=== PATIENT | male | born 1940 | race Caucasian/White ===

== ENCOUNTER 2021-12-11 11:51 | Observation (INO) | payer OTHER ==
[2021-12-11 13:00] VITALS: BMI 29.0
[2021-12-11] MEDS ORDERED: INFLUENZA VACCINE (for 6+ mo) 0.5 ML DOSE IMVAC ONE (13:00)
[2021-12-11] MEDS ORDERED: PNEUMOCOCCAL VACCINE 0.5 ML IMVAC ONE (13:00)
[2021-12-11 13:40] LABS: Absolute Lymphocytes (CBC) 1.2 K/uL (0.7-4.9); Hematocrit 39.4 % (39.6-49.0); Lymphocytes % 10.8 % (15.3-44.8); MPV 8.2 fL (7.6-11.3); RBC Red Blood Cell Count 4.34 M/uL (4.33-5.43)
[2021-12-11] MEDS: HYDROMORPHONE HCL 1 MG/ML INJ IV PRN (14:33)
[2021-12-11] MEDS ORDERED: LOPERAMIDE HCL 2 MG CAPSULE PO PRN (15:00)
[2021-12-11] MEDS ORDERED: DIPHENHYDRAMINE 25 MG TAB/CAP PO PRN (15:00)
[2021-12-11] MEDS ORDERED: ACETAMINOPHEN 325 MG TABLET PO PRN (15:00)
[2021-12-11] MEDS ORDERED: POLYETHYL GLY 3350 17 GM/DOSE PO PRN (15:00)
[2021-12-11] MEDS ORDERED: ONDANSETRON 4 MG (ODT) TAB PO PRN (15:00)
[2021-12-11] MEDS ORDERED: ONDANSETRON 4 MG/2 ML VIAL IV PRN (15:00)
[2021-12-11] MEDS ORDERED: NACHLORIDE 0.45% 1,000 ML IV SCH (15:00)
[2021-12-11] MEDS: CEFOXITIN 1 GM in NA CHLORIDE 0.9% 50 ML IVPB SCH ×2 (15:01→23:06)
[2021-12-11 15:27] LABS: Albumin 3.1 g/dL (3.4-5.0); Bilirubin Direct 0.1 mg/dL (0-0.2); Bilirubin Total 0.5 mg/dL (0.2-1.0); Magnesium 2.2 mg/dL (1.8-2.4); Phosphorus 3.4 mg/dL (2.5-4.9); Potassium 4.7 mmol/L (3.5-5.1); Thyroid Stimulating Hormone 0.78 uIU/mL (0.360-3.740)
--- NOTE | 2021-12-11 16:01 | RAD REPORT ---
EXAM DESCRIPTION: CT - Abdomen Pelvis W Contrast - 12/11/2021 3:26 pm CLINICAL HISTORY: abdominal painwhich the patient localizes to left lower quadrant and groin ; histo ry of colon cancer COMPARISON: No comparisons TECHNIQUE: Biphasic, helical CT imaging of the abdomen and pelvis was performed following 100 ml non -ionic IV contrast. No oral contrast administered. All CT scans are performed using dose optimization technique as appropriate and may include automated exposure control or mA/KV adjustment according to patient size. FINDINGS: No suspicious findings in the lung bases. No pericardial effusion. Liver size is normal with no suspicious liver lesions identified. Scattered throughout both lobes are several small round low-density lesion showing homogeneous fluid attenuation. No rim enhancement. Th srinivasan are all believed to be incidental hepatic cysts. No portal vein abnormality identified. Spleen and pancreas show no suspicious findings. Gallbladder and biliary tree are also without suspic ious finding. Normal cortical and medullary enhancement characteristics are seen in the right kidney. No right-side d hydronephrosis. No right-sided obstructing or nonobstructing calculi. There is a small 10 mm renal cyst in the medial midportion of the right kidney. There is no right-sided perinephric stranding. There is very significant left-sided hydronephrosis and hydroureter. Transverse diameter of the renal pelvises 5 cm. Moderately dilated ureter extends into the pelvis. There is enhancement of a thin cor tical rim of renal tissue. No left-sided perinephric stranding. The dilated ureter is tortuous. The p rob, calices and proximal ureter show normal fluid attenuation urine within the lumen. The distal 1 /3 of the ureter has a more dense attenuation value. Additionally, the left ureter has been reattache d to the left anterior margin of the bladder. There are numerous surgical clips along the course of t he ureter and in the pelvic sidewall region. This history is unknown. The increased density in the ur eter could represent inflammatory debris, blood, mass lesion or some combination of those 3 etiologie s. There is no stone in the distal ureter. No gross evidence for a mass lesion at the site of the shania dder re- attachment. No pyelonephritis or acute parenchymal process. No adrenal abnormalities. No enlargement of the prostate gland. Along the right side floor of the bladder there is a [address] diameter lobulated mass. This appears to be discrete from the prostate gland. A bladder wall mass is suspected and needs correlation with cystoscopy. No bladder wall thickening otherwise noted. No s tone in the bladder lumen. The stomach dilatation, gastric wall thickening or gastric wall mass identifiable. No small bowel abn ormality seen. Gallbladder is been partially resected on the right. Anastomosis shows no wall thicken ing or edema. Moderate stool volume is seen throughout the colon. Sigmoid colon is tortuous and redun dant without acute component. No rectum abnormality seen. No free air, free fluid or inflammatory stranding. No other mass and no bulky lymphadenopathy seen . A small periumbilical hernia seen. Small fat only right inguinal hernia is present with no congesti on or edema. Fat extends 1-2 cm into the origin of the left inguinal canal. There is no congested or edematous fat within the inguinal canal or in the fatty tissues of the left lower pelvic floor or jose in region. There is no abnormal groin mass or lymphadenopathy. Imaging extended through the scrotum w here there is no scrotal wall thickening or edema identifiable. Disc and bone degenerative changes are present. No pathologic bone process seen. Vascular calcifications are present. No acute vascular finding. Findings were discussed by telephone with Dr. Schultz and left lower quadrant findings discussed with Skyla Ji. IMPRESSION: Patient has very pronounced left-sided hydronephrosis and hydroureter. Midportion of the ureters 13 mm with the renal pelvis dilated to 5 cm. No obstructing calculus seen. Significantly thi nned renal cortex is present on the left. This is believed to be chronic hydronephrosis. Postsurgical changes are present in the left lower quadrant with reattachment of the left ureter to t he left anterior urinary bladder wall. There is no stone or mass at the re- anastomosis site. The distal left ureter is high density within the lumen. This is not density of the stone. Blood, inf lammatory debris, mass or a combination of these 3 etiologies suspected. No measurable left inguinal hernia, lymphadenopathy or other abnormality besides the left ureter find ing that might explain left pelvic floor, groin or spermatic cord region pain symptoms. Patient appears to have a small 12 millimeter mass along the right-side of the urinary bladder floor concerning for malignancy. Follow-up urology consultation with cystoscopy will likely be needed.
[2021-12-11 16:25] LABS: Urine Appearance Clear (Clear); Urine Bilirubin Negative (Negative); Urine Blood Negative (Negative); Urine Color Yellow (Yellow); Urine Glucose Negative (Negative); Urine Protein Negative (Negative); Urine Specific Gravity 1.015 (1.005-1.030); Urine Urobilinogen 0.2 mg/dL (0.2-1.0)
[2021-12-11 16:26] LABS: Urine Amorphous Sediment 1+ /HPF (NONE SEEN); Urine Bacteria <20 /HPF (NONE SEEN); Urine Microscopic Reflex ORDER UMIC; Urine RBC <5 /HPF (NONE SEEN)
--- NOTE | 2021-12-11 17:20 | RAD REPORT ---
EXAM DESCRIPTION: RAD - Chest Single View - 12/11/2021 4:13 pm CLINICAL HISTORY: direct admitabdomen pain COMPARISON: None TECHNIQUE: AP portable chest image was obtained 12/11/2021 4:13 pm . FINDINGS: No peripheral mass consolidation. No significant failure or volume overload findings. Inte rstitial pattern is prominent suspected to be baseline rather than interstitial edema or infiltrate. Heart and vasculature are normal. No measurable pleural effusion and no pneumothorax. No acute bony abnormality seen. No acute aortic findings suspected. IMPRESSION: Mildly prominent interstitial pattern throughout both lung milton favored to be baseline rather than acute infiltrate.
--- NOTE | 2021-12-11 20:47 | CON ---
Date of Consultation: 12/11/2021 Reason For Services: Left lower quadrant and groin pain. History Of Present Illness: This is a case of an 81-year-old patient who is saying he has some pain in the suprapubic area and left groin area since about 3 weeks duration. He denies any nausea, vomit ing, shortness of breath, chest pain. Denies any heavy lifting. Denies any trauma in that region. He has midline incision. He has also inguinal incision. His inguinal incision comes from inguinal h ernia repair he says more than 30 years ago. He has been okay until the last several weeks. He has a midline incision also from previous laparotomy. Surgical consult was obtained to rule out left ing uinal hernia. Review of Systems: See H and P. No recall about previous colonoscopy. We have to check with the jacker feeder. Past Surgical History: Include bilateral inguinal hernias, midline incision with possible colon canc er, I do not have the details of that. Past Medical History: Reviewed. Allergies: NONE. Family History: Noncontributory. He does not smoke. He does not drink alcohol. Physical Examination: General: The patient is awake, alert. HEENT: Pupils are equal and reactive. Anicteric. Neck: Supple. Chest: Clear. Abdomen: Soft and depressible. There is a midline incision. There is an umbilical hernia with no t enderness. On the groin area there is left inguinal incision. There is tenderness over the suprapub ic area. No reducible hernia found. No masses in that region. Extremities: Good capillary refill. Laboratory Data: Blood work shows WBC count of 10.8 with hemoglobin of 13. PTT is 29.4. BUN is 28. CAT scan of the abdomen and pelvis, I just reviewed the CAT scan with Dr. Sheldon. There is some p athology that we found in different parts of his urological system that include kidneys, include uret ers, with possible mass versus debris causing significant hydronephrosis in the left side. He did no t see any hernia on the inguinal region. He reviewed the films, but evaluated better once we talked to him and still not seen any hernia in that region. Assessment: Left groin pain, hydronephrosis, possible ureteral obstruction. Unfortunately from the surgical standpoint I cannot help him since he does not have a hernia at this time, but we might have to consult urologist to let us know if there is any relationship between his tenderness and all thes e findings on the CAT scan. We will follow the patient with you. We advised him once again about th e importance of no heavy lifting, not gaining weight since the patient has a midline incision with an umbilical hernia that may have to be addressed once this problem is resolved. ROXANNE Voice ID: [id number] Report ID: [id number]
[2021-12-11] MEDS ORDERED: HYDRALAZINE HCL 25 MG TABLET PO SCH (21:00)
--- NOTE | 2021-12-11 21:27 | P.HP ---
Certification for Inpatient Patient admitted to: Inpatient With expected LOS: >2 Midnights Practitioner: I am a practitioner with admitting privileges, knowledge of patient current condition, hospital course, and medical plan of care. Services: Services provided to patient in accordance with Admission requirements found in Title 42 Section 412.3 of the Code of Federal Regulations Patient History Date of Service: 12/11/21 Reason for admission: ABDOMEN PAIN LLQ AND L SIDE History of Present Illness: MR REBOLLEDO IS A PATIENT WITH PARKINSON'S DISEASE COMING WITH PAIN IN L SIDE GROIN AREA FOR ABOUT A WEEK. IT IS WORSENING OVER TIME. HE HAS NO NAUSEA, VOMITING, CONSTIPATION ETC. Allergies No Known Allergies Allergy (Verified 12/11/21 16:29) Home medications list reviewed: Yes Home Medications: Apixaban [Eliquis] 5 mg PO DAILY 12/11/21 Carbidopa/Levodopa [Carbidopa-Levo ER 50-200 Tab] 1 tab PO BID 12/11/21 Hydralazine HCl 50 mg PO BID 12/11/21 Lisinopril [Zestril] 20 mg PO DAILY 12/11/21 Metoprolol Succinate 50 mg PO DAILY 12/11/21 predniSONE [Deltasone] 20 mg PO DAILY 12/11/21 - Past Medical/Surgical History Has patient received pneumonia vaccine in the past: No Diabetic: No -: HTN -: Parkinsonian syndrome -: AFIB -: Arthritis -: Brain tumor -: Colon Cancer with Chemotherapy -: POLYMYALGIA RHEUMATICA- STEROIDS -: Colon sx -: Hernia repair -: 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 moist/pink, EOMI, Sclerae nonicteric Neck: Supple, 2+ carotid pulse no bruit, No LAD, Without JVD or thyroid abnormality Respiratory: Clear to auscultation bilaterally, Normal air movement Cardiovascular: Regular rate/rhythm, Normal S1 S2 Gastrointestinal: Normal bowel sounds, No tenderness Musculoskeletal: No tenderness Integumentary: No rashes Neurological: Normal gait, Normal speech, Normal strength at 5/5 x4 extr, Normal tone, Normal affect Lymphatics: No axilla or inguinal lymphadenopathy - Studies Laboratory Data (last 24 hrs) 12/11/21 13:14: APTT 29.4 12/11/21 13:14: Sodium 136, Potassium 4.7, BUN 28 H, Creatinine 1.29, Glucose 108 H, Phosphorus 3.4, Magnesium 2.2, Total Bilirubin 0.5, AST 16, ALT 14, Alkaline Phosphatase 24 L 12/11/21 13:14: WBC 10.8, Hgb 13.0 L, Hct 39.4 L, Plt Count 251 Assessment and Plan - Problems (Diagnosis) (1) Groin pain, chronic, left Current Visit: Yes Status: Acute Plan: THERE IS NO CT SIGN OF HERNIA. THERE IS NO PALPABLE HERNIA. HE IS TENDER ON L SPERMATIC CORD WITH MILD SWELLING. NO SIGNS OF INFECTION. (2) Hydronephrosis, left Current Visit: Yes Status: Acute Plan: THIS CAN BE FROM DEBRI IN THE URETER. DR CAMACHO REPORTS EITHER DEBRS OR TUMOR IN THE URETER. HE ALSO MENTIONS A SMALL MASS IN BLADDER THAT NEEDS TO BE SEEN BY UROLOGIST. DR. MENDEZ IS OUT OF TOWN. HE WILL RETURN AFTER 10 DAYS. I WILL ARRANGE FOR HIM TO BE SEEN BY A UROLOGIST IN [facility]. - Advance Directives Does patient have a Living Will: No Does patient have a Durable POA for Healthcare: No
[2021-12-11] MEDS: CARBIDOPA PO SCH (21:41)
[2021-12-11] MEDS: LEVODOPA PO SCH (21:41)
[2021-12-12] MEDS: HYDROMORPHONE HCL 1 MG/ML INJ IV PRN (05:02)
[2021-12-12] MEDS: CEFOXITIN 1 GM in NA CHLORIDE 0.9% 50 ML IVPB SCH (06:29)
[2021-12-12 08:16] VITALS: TEMP 97.7
--- NOTE | 2021-12-12 08:50 | P.DS ---
Admission Date: 12/11/21 Discharge Date: 12/12/21 Disposition: TRANSFER TO [facility] Discharge Condition: [facility]IR Reason for Admission: ABDOMEN PAIN LLQ AND L SIDE - Problems (1) Groin pain, chronic, left Current Visit: Yes Status: Acute (2) Hydronephrosis, left Current Visit: Yes Status: Acute Brief History of Present Illness: MR REBOLLEDO IS A PATIENT WITH PARKINSON'S DISEASE COMING WITH PAIN IN L SIDE GROIN AREA FOR ABOUT A WEEK. IT IS WORSENING OVER TIME. HE HAS NO NAUSEA, VOMITING, CONSTIPATION ETC. Hospital Course: TREVA IS IN SEVERE PAIN WITHOUT DILAUDID. HE HAS L SIDE HYDRONEPHROSIS WITH POSSIBLE MALIGNANCY AT THE END OF URETER. HE NEEDS A UROLOGIST. WE DON'T HAVE A UROLOGIST FOR NEXT 10 DAYS. HE HAS AGREED TO GO TO [facility] IN [place] INPATIENT TRANSFER. WE HAVE INITIATED THE PROCESS AND WILL BE TRANSFERRED WITH BED AVAILABILITY. Vital Signs/Physical Exam: Temp Pulse Resp BP Pulse Ox 97.7 F 84 14 130/81 97 12/12/21 08:00 12/12/21 08:00 12/12/21 08:00 12/12/21 08:00 12/12/21 08:00 Laboratory Data at Discharge: WBC 10.8 K/uL (4.3-10.9) 12/11/21 13:14 Hgb 13.0 g/dL (13.6-17.9) L 12/11/21 13:14 Hct 39.4 % (39.6-49.0) L 12/11/21 13:14 Plt Count 251 K/uL (152-406) 12/11/21 13:14 APTT 29.4 SECONDS (24.3-36.9) 12/11/21 13:14 Sodium 136 mmol/L (136-145) 12/11/21 13:14 Potassium 4.7 mmol/L (3.5-5.1) 12/11/21 13:14 BUN 28 mg/dL (7-18) H 12/11/21 13:14 Creatinine 1.29 mg/dL (0.55-1.3) 12/11/21 13:14 Glucose 108 mg/dL (74-106) H 12/11/21 13:14 Phosphorus 3.4 mg/dL (2.5-4.9) 12/11/21 13:14 Magnesium 2.4 mg/dL (1.8-2.4) 12/12/21 05:21 Total Bilirubin 0.5 mg/dL (0.2-1.0) 12/11/21 13:14 AST 16 U/L (15-37) 12/11/21 13:14 ALT 14 U/L (12-78) 12/11/21 13:14 Alkaline Phosphatase 24 U/L (45-117) L 12/11/21 13:14 Home Medications: Apixaban [Eliquis *] 5 mg PO BID 12/11/21 Carbidopa/Levodopa [Carbidopa-Levo ER 50-200 Tab] 1 tab PO BID 12/11/21 Hydralazine HCl 50 mg PO BID 12/11/21 Lisinopril [Zestril] 20 mg PO DAILY 12/11/21 Metoprolol Succinate 50 mg PO DAILY 12/11/21 predniSONE [Prednisone*] 20 mg PO DAILY 12/11/21
[2021-12-12] MEDS ORDERED: APIXABAN 5 MG PO SCH (09:00)
[2021-12-12] MEDS ORDERED: METOPROLOL 50 MG PO SCH (09:00)
[2021-12-12] MEDS ORDERED: predniSONE 20 MG TAB PO SCH (09:00)
[2021-12-12] MEDS ORDERED: lisinopriL 20 MG TAB PO SCH (09:00)
[2021-12-12] MEDS ORDERED: HYDRALAZINE HCL 25 MG PO SCH (09:00)
[2021-12-12] MEDS ORDERED: LISINOPRIL 20 MG PO SCH (09:00)
[2021-12-12] MEDS ORDERED: ENOXAPARIN 40 MG/0.4 ML SQ SCH (09:00)
[2021-12-12] MEDS ORDERED: APIXABAN 5 MG TABLET PO SCH (09:00)
[2021-12-12] MEDS ORDERED: METOPROLOL XL 50 MG TAB PO SCH (09:00)
[2021-12-12] MEDS: LEVODOPA PO SCH (10:44)
[2021-12-12] MEDS: CARBIDOPA PO SCH (10:44)
[2021-12-12 12:01] VITALS: BP 122/66
[2021-12-13] MEDS ORDERED: PREDNISONE 20 MG PO SCH (08:00)
--- NOTE | 2021-12-14 11:19 | EKG ---
Test Date: 2021-12-11 Test Time: 14:47:02 Line Servicer: AFIA MEASUREMENT RESULTS: Intervals: Rate: 86 MT: QRSD: 110 QT: 360 QTc: 430 [place]: P: MT: QRS: -62 T: 62 INTERPRETIVE STATEMENTS: Atrial fibrillation Left anterior fascicular block Abnormal ECG No previous ECG available for comparison Electronically Signed On 12-14-21 11:13:28 CDT by Bassam Madrid
[2021-12-15 17:32] LABS: Vitamin D 1,25-Dihydroxy Total 22 pg/mL (18-72); Vitamin D,1,25-OH2, D2 <8 pg/mL
== END 2021-12-12 15:10 | disposition short-term general hospital (02) ==
LOC: 2ND 11:51
PROVIDERS: ADMIT Internal Medicine; ATTEND Internal Medicine
DX: R10.32 Left lower quadrant pain (principal); N13.30 Unspecified hydronephrosis; G20 Parkinson's disease; I10 Essential (primary) hypertension; I48.91 Unspecified atrial fibrillation; Z85.038 Personal history of other malignant neoplasm of large intestine
CPT/HCPCS: 36415; 71045; 74177; 80048; 80076; 81003; 81015; 82607; 82652; 83735; 84100; 84443; 85025; 85730; 93005; G0378; G0379; J0694; J1170; J7512; Q9967

== ENCOUNTER 2022-01-03 11:41 | Emergency (ER) | payer OTHER ==
[2022-01-03] MEDS ORDERED: NA CHLORIDE 0.9% 1,000 ML ONE (12:59)
[2022-01-03 13:07] LABS: Absolute Lymphocytes (CBC) 1.4 K/uL (0.7-4.9); Hematocrit 39.8 % (39.6-49.0); MPV 7.5 fL (7.6-11.3); RBC Red Blood Cell Count 4.36 M/uL (4.33-5.43)
[2022-01-03 13:48] LABS: Albumin 2.8 g/dL (3.4-5.0); Bilirubin Direct 0.4 mg/dL (0-0.2); Bilirubin Total 1.9 mg/dL (0.2-1.0); Potassium 4.5 mmol/L (3.5-5.1); Protein, Total 5.6 g/dL (6.4-8.2)
[2022-01-03 13:58] LABS: Blood Morphology Comment NOT SEEN (NOT SEEN); Platelet Estimate ADEQ
[2022-01-03] MEDS ORDERED: ONDANSETRON 4 MG/2 ML VIAL ONE (14:29)
[2022-01-03] MEDS ORDERED: FENTANYL CITR 100 MCG/2 ML ONE (14:29)
--- NOTE | 2022-01-03 14:33 | RAD REPORT ---
EXAM DESCRIPTION: CT - Abdomen Pelvis W Contrast - 01/03/2022 2:13 pm CLINICAL HISTORY: LLQ abdominal pain COMPARISON: Abdomen Pelvis W Contrast dated 12/11/2021 TECHNIQUE: Biphasic, helical CT imaging of the abdomen and pelvis was performed following 100 ml non -ionic IV contrast. No oral contrast administered peer All CT scans are performed using dose optimization technique as appropriate and may include automated exposure control or mA/KV adjustment according to patient size. FINDINGS: Patchy airspace opacification is present in the posterior gutter on the left new from the 12/11/2021 imaging. No pneumothorax or pleural effusion. Borderline cardiomegaly is present with no p ericardial effusion. Tortuosity the distal descending thoracic aorta noted. Several small low-attenuation masses are present in the liver 15 mm or less in size. These are simila r to the prior study and are probably small incidental cysts. Acute or significant liver finding is d oubtful. Motion limits detail. No portal vein abnormality identified. Pancreas and spleen show no suspicious findings. Gallbladder and biliary tree are also without suspic ious finding. Normal function seen in the right renal cortex. No right-sided hydronephrosis and no obstructing or n onobstructing calculi. Small cyst noted in the medial midportion of the right kidney. Left renal jose ex is thinned. There is function still identifiable. Marked hydronephrosis of the calices in pelvis n oted. This continues as hydroureter. Surgical clips are present in the left side of the pelvis. Left ureter is attached to the anterolateral margin of the ureter. There is an increase in density over th e distal half of the enlarged right ureter. This hyperdense appearance has been seen on prior imaging . No contrast is present in the left collecting system to evaluate whether this is debris or space-oc cupying intraluminal mass of the distal left ureter. No pyelonephritis or acute parenchymal process. Previously detailed small 12-14 mm mass along the right-side floor the urinary bladder is again noted . No adrenal abnormalities. No dilated bowel loops or bowel wall thickening. Right-side colon is partially resected. The anastomo tic site shows no wall thickening or mass. No acute bowel process seen. No free air, free fluid or in flammatory stranding. No mass or bulky lymphadenopathy. Small fat only right inguinal hernia is seen . No left inguinal hernia confirmed. No suspicious bony findings. Bony degenerative changes are seen without an acute component. IMPRESSION: Small mass along the right-side floor the urinary bladder has not change from the December 11 study. Chronic left-sided hydronephrosis and hydroureter again noted. There is hyperdensity within the dista l left ureter. Delayed images are being obtained to see if any contrast enters the dilated left colle cting system. An addendum will be issued to this report. No acute GI process identifiable. Small fat only right inguinal hernia with no acute component.
[2022-01-03 15:56] LABS: Urine Blood Negative (Negative); Urine Glucose Negative (Negative); Urine Protein Negative (Negative)
[2022-01-03] MEDS ORDERED: HYDROMORPHONE HCL 1 MG/ML INJ ONE (16:09)
[2022-01-03 16:10] LABS: Urine Bacteria <20 /HPF (NONE SEEN); Urine RBC NONE SEEN /HPF (NONE SEEN)
--- NOTE | 2022-01-03 17:35 | EDPHYS ---
Physician Documentation [facility] Name: Carlitos Peralta Age: 81 yrs Sex: Male : 1940 Arrival Date: 01/03/2022 Time: 11:43 Bed 14 Private MD: ED Physician John Dixon HPI: 01/03 12:57 This 81 yrs old Male presents to ER via EMS with complaints of Groin Pain. 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 Historical: - Allergies: 11:44 No Known Allergies; ll1 - PMHx: 11:44 Arthritis; Hypertensive disorder; A fib; CA; ll1 - PSHx: 11:44 None; ll1 - Immunization history:: Client reports receiving the 2nd dose of the Covid vaccine. - Social history:: Smoking status: Patient reports the use of cigarette tobacco products, pipe. - Family history:: not pertinent. ROS: 12:57 Constitutional: Negative for fever, chills, and weight loss, Cardiovascular: Negative ma2 for chest pain, palpitations, and edema, Respiratory: Negative for shortness of breath, cough, wheezing, and pleuritic chest pain, Abdomen/GI: Negative for abdominal pain, nausea, diarrhea, and constipation, Back: Negative for injury and pain, : Negative for injury, bleeding, discharge, and swelling, MS/Extremity: Negative for injury and deformity, Neuro: Negative for headache, weakness, numbness, tingling, and seizure. 12:57 All other systems are negative. Exam: 12:57 Constitutional: This is a well developed, well nourished patient who is awake, alert, ma2 and in no acute distress. ENT: Nares patent. No nasal discharge, no septal abnormalities noted. Tympanic membranes are normal and external auditory canals are clear. Oropharynx with no redness, swelling, or masses, exudates, or evidence of obstruction, uvula midline. Mucous membranes moist. Neck: Trachea midline, no thyromegaly or masses palpated, and no cervical lymphadenopathy. Supple, full range of motion without nuchal rigidity, or vertebral point tenderness. No Meningismus. Chest/axilla: Normal chest wall appearance and motion. Nontender with no deformity. No lesions are appreciated. Cardiovascular: Regular rate and rhythm with a normal S1 and S2. No gallops, murmurs, or rubs. Normal PMI, no JVD. No pulse deficits. Respiratory: Lungs have equal breath sounds bilaterally, clear to auscultation and percussion. No rales, rhonchi or wheezes noted. No increased work of breathing, no retractions or nasal flaring. Abdomen/GI: Soft, non-tender, with normal bowel sounds. No distension or tympany. No guarding or rebound. No evidence of tenderness throughout. Back: No spinal tenderness. No costovertebral tenderness. Full range of motion. Male : Normal genitalia with no discharge or lesions. Skin: Warm, dry with normal turgor. Normal color with no rashes, no lesions, and no evidence of cellulitis. MS/ Extremity: Pulses equal, no cyanosis. Neurovascular intact. Full, normal range of motion. Neuro: Awake and alert, GCS 15, oriented to person, place, time, and situation. Cranial nerves II-XII grossly intact. Motor strength 5/5 in all extremities. Sensory grossly intact. Cerebellar exam normal. Normal gait. Vital Signs: 11:46 BP 122 / 73; Pulse 96; Resp 17; Temp 98.0; Pulse Ox 97% on R/A; Weight 94.35 kg; Height ll1 5 ft. 11 in. (180.34 cm); Pain 8/10; 13:53 BP 127 / 111; Pulse 66; Resp 18; Pulse Ox 97% on R/A; ph 15:00 BP 118 / 72; Pulse 72; Resp 16; Pulse Ox 99% on R/A; ph 16:14 BP 113 / 70; Pulse 78; Resp 16; Pulse Ox 99% on R/A; ph 17:27 BP 108 / 65; Pulse 103; Resp 18; Pulse Ox 98% on R/A; ph 11:46 Body Mass Index 29.01 (94.35 kg, 180.34 cm) ll1 MDM: 12:08 Patient medically screened. ma2 12:57 Differential diagnosis: gastritis, gastroesophageal reflux disease, Irritable bowel ma2 syndrome, urinary tract infection. 17:29 Data reviewed: vital signs, nurses notes, EMS record, [facility] records, diagnostic ma2 data from outside facility. Counseling: I had a detailed discussion with the patient and/or guardian regarding: the historical points, exam findings, and any diagnostic results supporting the discharge/admit diagnosis, the presence of at least one elevated blood pressure reading (>120/80) during this emergency department visit, the need for outpatient follow up. Response to treatment: the patient's symptoms have markedly improved after treatment. ED course: accepted by dr. Figueroa. 17:31 ED course: Patient has right-sided hydroureter, hydronephrosis with severe pain ma2 requires fentanyl x2, also received Dilaudid. Patient elevation in white count 16,000, CT abdomen shows possible ureteric obstruction with hypodense mass within the ureter concerning for blood, tissue or depris. Dr. Hughes at 4 PM, no call. at 5:30 PM we initiated transfer to higher level of care for urology service. Case discussed and accepted by Dr. Almonte. 17:39 ED course: accepted by dr. Herrera. mo2 01/03 12:41 Order name: Basic Metabolic Panel; Complete Time: 14:40 ma2 01/03 12:41 Order name: CBC with Diff; Complete Time: 14:40 mo2 01/03 12:41 Order name: Hepatic Function; Complete Time: 14:40 ma2 01/03 12:41 Order name: Lipase; Complete Time: 14:40 ma2 01/03 12:41 Order name: Urine Microscopic Only; Complete Time: 17:01 mo2 01/03 13:59 Order name: Manual Differential; Complete Time: 14:40 EDGA 01/03 12:41 Order name: CT Abd/Pelvis - IV Contrast Only; Complete Time: 15:37 ma2 01/03 15:56 Order name: Urine Dipstick-Ancillary; Complete Time: 16:01 EDMS 01/03 16:03 Order name: COVID-19 SARS RT PCR (Document "Date of Onset" if Symptomatic); Complete ss Time: 17:01/03 12:41 Order name: IV Saline Lock; Complete Time: 13:02 ma2 01/03 12:41 Order name: NPO; Complete Time: 12:49 ma2 01/03 12:41 Order name: Urine Dipstick-Ancillary (obtain specimen); Complete Time: 16:15 ma2 01/03 18:02 Order name: Diet Regular; Complete Time: 18:03 ph Administered Medications: 13:09 Drug: NS 0.9% 1000 ml Route: IV; Rate: 1 bolus; Site: right antecubital; ph 15:00 Follow up: Response: No adverse reaction; IV Status: Completed infusion ph 14:40 Drug: Zofran (Ondansetron) 4 mg Route: IVP; Site: right antecubital; ph 19:47 Follow up: Response: No adverse reaction ph 14:40 Drug: fentaNYL (PF) 75 mcg Route: IVP; Site: right antecubital; ph 15:00 Follow up: Response: No adverse reaction ph 16:14 Drug: Dilaudid (HYDROmorphone) 1 mg Route: IVP; Site: right antecubital; ph 16:35 Follow up: Response: No adverse reaction; Pain is decreased ph 17:55 Drug: Rocephin (cefTRIAXone) 1 grams Route: IV; Rate: calculated rate; Site: right ph antecubital; 18:20 Follow up: Response: No adverse reaction; IV Status: Completed infusion ph Disposition Summary: 01/03/22 17:34 Transfer Ordered Transfer Location: [facility] ma2 Reason: Higher level of care ma2 Condition: Stable ma2 Problem: new ma2 Symptoms: are unchanged ma2 Accepting Physician: Dr. Almonte urology/ Dr. Herrera hospitalist(01/03/22 19:18) ph Diagnosis - Other hydronephrosis - left uretric mass ma2 Forms: - Medication Reconciliation Form ma2 - SBAR form ma2 Signatures: Dispatcher [employer] Sophie Bey RN RN ph John Dixon MD MD ma2 Elva Swan Lynsay, RN RN ll1 Corrections: (The following items were deleted from the chart) 17:50 17:34 Dr. Almonte mo2 19:18 17:50 Dr. Almonte urology/ Dr. Herrera hospitalist [facility]
--- NOTE | 2022-01-03 17:35 | ER ---
Nurse's Notes [facility] Name: Carlitos Peralta Age: 81 yrs Sex: Male : 1940 Arrival Date: 01/03/2022 Time: 11:43 Bed 14 Private MD: Diagnosis: Other hydronephrosis-left uretric mass Presentation: 01/03 11:43 Chief complaint:. Coronavirus screen: Vaccine status: Patient reports receiving the 2nd ph dose of the covid vaccine. Ebola Screen: No symptoms or risks identified at this time. Initial Sepsis Screen: Does the patient meet any 2 criteria? No. Patient's initial sepsis screen is negative. Does the patient have a suspected source of infection?. Risk Assessment: Do you want to hurt yourself or someone else? Patient reports no desire to harm self or others. 11:43 Acuity: LUISITO 4 ph 11:46 Onset of symptoms. ph 11:46 Method Of Arrival: EMS: [facility] 11:46 Chief complaint: Patient states: L groin pain for 6-7 weeks, worse today. No fever. EMS ll1 states: VSS. 20 G R AC, fentanyl 75 mcg, and Zofran 4 mg IV given en route. Coronavirus screen: Vaccine status: Patient reports receiving the 2nd dose of the covid vaccine. Client denies travel out of the [place] in the last 14 days. At this time, the client does not indicate any symptoms associated with coronavirus-19. Ebola Screen: Patient denies travel to an Ebola-affected area in the 21 days before illness onset. Initial Sepsis Screen: Does the patient meet any 2 criteria? HR > 90 bpm. No. Patient's initial sepsis screen is negative. Does the patient have a suspected source of infection? No. Patient's initial sepsis screen is negative. Risk Assessment: Do you want to hurt yourself or someone else? Patient reports no desire to harm self or others. Onset of symptoms was November 10, 2021. 11:46 Method Of Arrival: EMS 1 11:46 Acuity: LUISITO 4 ll1 Historical: - Allergies: 11:44 No Known Allergies; ll1 - PMHx: 11:44 Arthritis; Hypertensive disorder; A fib; CA; ll1 - PSHx: 11:44 None; ll1 - Immunization history:: Client reports receiving the 2nd dose of the Covid vaccine. - Social history:: Smoking status: Patient reports the use of cigarette tobacco products, pipe. - Family history:: not pertinent. Screenin:47 Abuse screen: Denies threats or abuse. Denies injuries from another. Nutritional ph screening: No deficits noted. Tuberculosis screening: No symptoms or risk factors identified. Fall Risk None identified. Assessment: 12:08 General: Appears in no apparent distress. comfortable, Behavior is calm, cooperative, ph appropriate for age. Pain: Complains of pain in left femoral area and left inguinal area. Neuro: Level of Consciousness is awake, alert, obeys commands, Oriented to person, place, time, situation. Cardiovascular: Capillary refill < 3 seconds in bilateral fingers Patient's skin is warm and dry. Respiratory: Airway is patent Respiratory effort is even, unlabored, Respiratory pattern is regular, symmetrical. GI: Patient currently denies diarrhea, nausea, vomiting. Derm: Skin is intact, is healthy with good turgor, Skin is pink, warm \T\ dry. 13:53 Reassessment: Patient appears in no apparent distress at this time. Patient and/or ph family updated on plan of care and expected duration. Pain level reassessed. Patient is alert, oriented x 3, equal unlabored respirations, skin warm/dry/pink. Pt resting quietly, awaiting CT scan, c/o pain to buttocks r/t ED stretcher, states that L groin pain is still relieved by EMS medications. 15:00 Reassessment: Patient appears in no apparent distress at this time. Patient and/or ph family updated on plan of care and expected duration. Pain level reassessed. Patient is alert, oriented x 3, equal unlabored respirations, skin warm/dry/pink. 16:00 Reassessment: Patient appears in no apparent distress at this time. Patient and/or ph family updated on plan of care and expected duration. Pain level reassessed. Patient is alert, oriented x 3, equal unlabored respirations, skin warm/dry/pink. Pt c/o pain to L groin and buttocks, ERP notified, see MAR. 17:14 Reassessment: Initiated transfer to [facility], requesting urology, MED SURG bed. 18:00 Reassessment: Patient appears in no apparent distress at this time. Patient and/or ph family updated on plan of care and expected duration. Pain level reassessed. Patient is alert, oriented x 3, equal unlabored respirations, skin warm/dry/pink. Awaiting transfer, at bedside. Vital Signs: 11:46 BP 122 / 73; Pulse 96; Resp 17; Temp 98.0; Pulse Ox 97% on R/A; Weight 94.35 kg; Height ll1 5 ft. 11 in. (180.34 cm); Pain 8/10; 13:53 BP 127 / 111; Pulse 66; Resp 18; Pulse Ox 97% on R/A; ph 15:00 BP 118 / 72; Pulse 72; Resp 16; Pulse Ox 99% on R/A; ph 16:14 BP 113 / 70; Pulse 78; Resp 16; Pulse Ox 99% on R/A; ph 17:27 BP 108 / 65; Pulse 103; Resp 18; Pulse Ox 98% on R/A; ph 11:46 Body Mass Index 29.01 (94.35 kg, 180.34 cm) ll1 ED Course: 11:43 Patient arrived in ED. ph 11:44 John Dixon MD is Attending Physician. ma2 11:44 Arm band placed on Patient placed in an exam room, on a stretcher. ll1 11:46 Triage completed. ph 11:47 Patient has correct armband on for positive identification. Bed in low position. Call ph light in reach. Side rails up X 1. Pulse ox on. NIBP on. Door closed. Noise minimized. Warm blanket given. 12:08 Sophie Sterling, RN is Primary Nurse. ph 12:58 Basic Metabolic Panel Sent. mb7 12:59 CBC with Diff Sent. mb7 12:59 Hepatic Function Sent. mb7 13:00 Urine Microscopic Only Sent. mb7 13:00 Lipase Sent. mb7 13:00 Maintain EMS IV. Dressing intact. Good blood return noted. Site clean \T\ dry. Gauge \T\ mb 7 site: 20 gauge in right antecubital . 14:15 CT Abd/Pelvis - IV Contrast Only In Process Unspecified. EDMS 16:03 called and left message for Dr. Gomez the urologist warehouse insulation worker for us today/. eb 16:19 initiated a transfer with Pollo Virtual Customer Assistant from the [facility]/ Per Pollo they will have to decline the patient in transfer due to being at capacity. 17:14 transfer initiated by Madiha Noyola with TAYLA Aguilar from the [facility]. eb 17:47 administrative approval given by TAYLA Aguilar/ patient has been accepted to [facility] eb 16 tower bed 1641/ Dr. Geni Herrera has accepted the patient in transfer/ report to be called to [phone]. 19:18 No provider procedures requiring assistance completed. Patient admitted, IV remains in ph place. Administered Medications: 13:09 Drug: NS 0.9% 1000 ml Route: IV; Rate: 1 bolus; Site: right antecubital; ph 15:00 Follow up: Response: No adverse reaction; IV Status: Completed infusion ph 14:40 Drug: Zofran (Ondansetron) 4 mg Route: IVP; Site: right antecubital; ph 19:47 Follow up: Response: No adverse reaction ph 14:40 Drug: fentaNYL (PF) 75 mcg Route: IVP; Site: right antecubital; ph 15:00 Follow up: Response: No adverse reaction ph 16:14 Drug: Dilaudid (HYDROmorphone) 1 mg Route: IVP; Site: right antecubital; ph 16:35 Follow up: Response: No adverse reaction; Pain is decreased ph 17:55 Drug: Rocephin (cefTRIAXone) 1 grams Route: IV; Rate: calculated rate; Site: right ph antecubital; 18:20 Follow up: Response: No adverse reaction; IV Status: Completed infusion ph Outcome: 17:34 ER care complete, transfer ordered by MD. mitchell 19:18 Patient left the ED. ph 19:18 Transferred by ground [facility]. to [facility], Transfer ph form completed. X-rays sent w/ patient. 19:18 Condition: stable 19:18 Instructed on the need for transfer. Signatures: Dispatcher [employer] EDMS Madiha Rowley, Sophie Anderson RN, RN RN John Dixon MD MD ma2 Botello, Elizabeth eb Lewis, Lynsay, RN RN [facility] Tia Blackwell [facility]
[2022-01-03] MEDS ORDERED: CEFTRIAXONE 1000 MG/VIAL ONE (17:45)
[2022-01-03] MEDS ORDERED: NA CHLORIDE 0.9% 100 ML IV ONE (17:45)
[2022-01-03 19:21] VITALS: TEMP 98
[2022-01-03 19:26] VITALS: BP 108/65; O2SAT 98
== END 2022-01-03 19:18 | disposition short-term general hospital (02) ==
LOC: ER 11:41
DX: N13.39 Other hydronephrosis (principal); N28.89 Other specified disorders of kidney and ureter; I10 Essential (primary) hypertension; F17.290 Nicotine dependence, other tobacco product, uncomplicated; Z20.822 Contact with and (suspected) exposure to COVID-19
CPT/HCPCS: 96365; 96361; 85025; 80048; 36415; 80076; 83690; 74177; 96375; 99285; U0003; Q9967; J3010; J1170; J7030; J2405; 81003; 81015

== ENCOUNTER 2022-01-27 11:10 | Emergency (ER) | payer OTHER ==
[2022-01-27 13:31] LABS: Absolute Lymphocytes (CBC) 1.2 K/uL (0.7-4.9); Hematocrit 40.7 % (39.6-49.0); Lymphocytes % 10.8 % (15.3-44.8); MPV 7.7 fL (7.6-11.3); RBC Red Blood Cell Count 4.46 M/uL (4.33-5.43)
[2022-01-27 13:40] LABS: Potassium 4.9 mmol/L (3.5-5.1)
--- NOTE | 2022-01-27 14:28 | RAD REPORT ---
EXAM DESCRIPTION: RAD - Abdomen 1 View (KUB) - 01/27/2022 2:13 pm CLINICAL HISTORY: Nephrostomy tube placement COMPARISON: No comparisons FINDINGS: Nonobstructive bowel gas pattern. No acute osseous abnormality.Visualized lungs are unrema rkable.No abnormal calcifications. Left nephrostomy tube in place . Surgical clips in the pelvis. Deg enerative changes are present in the acetabula. IMPRESSION: Nonobstructive bowel gas pattern. Left nephrostomy tube.
--- NOTE | 2022-01-27 14:57 | ER ---
Nurse's Notes [facility] Name: Carlitos Peralta Age: 81 yrs Sex: Male : 1940 Arrival Date: 01/27/2022 Time: 11:11 Bed 26 Private MD: Robin Gomez Diagnosis: Left flank pain;Hydronephrosis Presentation: 01/27 12:44 Chief complaint: Patient states: he has had pain in his right groin for approx two and ap3 a half months. Patient states he has had surgery to drain his kidney, and was informed he might have a mass in his bladder. Coronavirus screen: At this time, the client does not indicate any symptoms associated with coronavirus-19. Ebola Screen: No symptoms or risks identified at this time. Initial Sepsis Screen: Does the patient meet any 2 criteria? No. Patient's initial sepsis screen is negative. Does the patient have a suspected source of infection? No. Patient's initial sepsis screen is negative. Risk Assessment: Do you want to hurt yourself or someone else? Patient reports no desire to harm self or others. Onset of symptoms was November 27, 2021. 12:44 Method Of Arrival: Wheelchair ap3 12:44 Acuity: LUISITO 3 ap3 Triage Assessment: 12:50 General: Appears in no apparent distress. Behavior is calm, cooperative. Pain: ap3 Complains of pain in low back area. Neuro: Level of Consciousness is awake, alert, obeys commands, Oriented to person, place, time, situation, Speech is normal. Cardiovascular: Patient's skin is warm and dry. Respiratory: Airway is patent Respiratory effort is even, unlabored. : kidney catheter on the left lower flank. Historical: - Allergies: 12:47 No Known Allergies; ap3 - Home Meds: 12:48 blood pressure medication [Active]; Prednisone Oral [Active]; Meclizine Oral [Active]; ap3 - PMHx: 12:47 a fib; Arthritis; CA; Hypertensive disorder; ap3 - PSHx: 12:49 colon cancer sx; hernia repair; mult eye sx; ap3 - Immunization history:: Client reports receiving the 2nd dose of the Covid vaccine. - Social history:: Smoking status: Patient reports the use of cigarette tobacco products, pipes 2-3 times a day. Screenin:51 Abuse screen: Denies threats or abuse. Nutritional screening: No deficits noted. ap3 Tuberculosis screening: No symptoms or risk factors identified. Fall Risk. Assessment: 14:48 Reassessment: Patient appears in no apparent distress at this time. Patient is alert, ld1 oriented x 3, equal unlabored respirations, skin warm/dry/pink. General: Appears in no apparent distress. comfortable, Behavior is calm, cooperative, appropriate for age. Pain: Complains of pain in pelvis Pain does not radiate. Pain currently is 6 out of 10 on a pain scale. Quality of pain is described as throbbing. Neuro: Level of Consciousness is awake, alert, obeys commands, Oriented to person, place, time, situation. Cardiovascular: Capillary refill < 3 seconds Patient's skin is warm and dry. Respiratory: Airway is patent Respiratory effort is even, unlabored. GI: Abdomen is flat, non-distended. : Reports pain in groin. EENT: No signs and/or symptoms were reported regarding the EENT system. Derm: No signs and/or symptoms reported regarding the dermatologic system. Musculoskeletal: No signs and/or symptoms reported regarding the musculoskeletal system. 14:50 Reassessment: ERP at bedside discussing care. ld1 Vital Signs: 12:44 BP 123 / 68; Pulse 85; Resp 17; Temp 98.3; Pulse Ox 98% ; Weight 92.99 kg; Height 5 ft. ap3 11 in. (180.34 cm); 14:48 BP 127 / 72; Pulse 86; Resp 18; Pulse Ox 98% on R/A; Pain 6/10; ld1 12:44 Body Mass Index 28.59 (92.99 kg, 180.34 cm) ap3 ED Course: 11:11 Patient arrived in ED. am2 11:11 Robin Gomez MD is Private Physician. am2 11:33 Liu Fagan DO is Attending Physician. ms3 12:47 Triage completed. ap3 12:51 Arm band placed on right wrist. ap3 13:21 Inserted saline lock: 20 gauge in left antecubital area, using aseptic technique. Blood zm collected. 13:21 BMP Sent. zm 13:21 CBC with Diff Sent. zm 14:14 Abdomen 1 View (KUB) XRAY In Process Unspecified. EDMS 14:48 Mellisa Goodson, RN is Primary Nurse. ld1 14:48 Patient has correct armband on for positive identification. Bed in low position. Call ld1 light in reach. Side rails up X2. Pulse ox on. NIBP on. Door closed. Noise minimized. Warm blanket given. 14:48 No provider procedures requiring assistance completed. Patient did not have IV access ld1 during this emergency room visit. 14:56 Robin Gomez MD is Referral Physician. ms3 Administered Medications: No medications were administered Medication: 12:51 VIS not applicable for this client. ap3 Outcome: 14:57 Discharge ordered by . ms3 15:16 Discharged to home ambulatory, with family. ld1 15:16 Condition: stable 15:16 Discharge instructions given to patient, family, Instructed on discharge instructions, follow up and referral plans. medication usage, Demonstrated understanding of instructions, follow-up care, medications, Prescriptions given X 1. 15:16 Patient left the ED. ld1 Signatures: Dispatcher [employer] EDMS Sana Gold am2 Sana Gastelum, RN RN ap3 Liu Fagan DO DO ms3 Mellisa Goodson, RN RN ld1 Meagan Ji
--- NOTE | 2022-01-27 14:57 | EDPHYS ---
Physician Documentation [facility] Name: Carlitos Peralta Age: 81 yrs Sex: Male : 1940 Arrival Date: 01/27/2022 Time: 11:11 Bed 26 Private MD: Robin Gomez ED Physician Liu Fagan HPI: 01/27 13:30 This 81 yrs old Male presents to ER via Wheelchair with complaints of Groin Pain, ms3 Urinary Problem. 13:30 The patient complains of pain in the left mid back. The pain radiates to the left ms3 groin. Onset: The symptoms/episode began/occurred last month. Modifying factors: The symptoms are alleviated by nothing. the symptoms are aggravated by nothing. Associated signs and symptoms: The patient has no apparent associated signs or symptoms. Severity of pain: At its worst the pain was moderate in the emergency department the pain is unchanged. Historical: - Allergies: 12:47 No Known Allergies; ap3 - Home Meds: 12:48 blood pressure medication [Active]; Prednisone Oral [Active]; Meclizine Oral [Active]; ap3 - PMHx: 12:47 a fib; Arthritis; CA; Hypertensive disorder; ap3 - PSHx: 12:49 colon cancer sx; hernia repair; mult eye sx; ap3 - Immunization history:: Client reports receiving the 2nd dose of the Covid vaccine. - Social history:: Smoking status: Patient reports the use of cigarette tobacco products, pipes 2-3 times a day. ROS: 13:30 Constitutional: Negative for fever, and chills. ENT: Negative for injury, pain, and ms3 discharge, Neck: Negative for injury, pain, and swelling, Cardiovascular: Negative for chest pain, and palpitations. Respiratory: Negative for shortness of breath, cough, wheezing, and pleuritic chest pain, MS/Extremity: Negative for injury and deformity, Skin: Negative for injury, rash, and discoloration, Psych: Negative for depression, anxiety, suicide ideation, homicidal ideation, and hallucinations. 13:30 All other systems are negative. Exam: 13:30 Constitutional: This is a well developed, well nourished patient who is awake, alert, ms3 and in no acute distress. Eyes: Pupils equal round and reactive to light, extra-ocular motions intact. Lids and lashes normal. Conjunctiva and sclera are non-icteric and not injected. Periorbital areas with no swelling, redness, or edema. Neck: Trachea midline, no cervical lymphadenopathy. Supple, full range of motion without nuchal rigidity, or vertebral point tenderness. No Meningismus. Chest/axilla: Normal chest wall appearance and motion. Nontender with no deformity. Cardiovascular: Regular rate and rhythm with a normal S1 and S2. No gallops, murmurs, or rubs. Normal PMI, no JVD. No pulse deficits. Respiratory: Lungs have equal breath sounds bilaterally, clear to auscultation and percussion. No rales, rhonchi or wheezes noted. No increased work of breathing, no retractions or nasal flaring. Abdomen/GI: Soft, non-tender, with normal bowel sounds. No distension or tympany. No guarding or rebound. No evidence of tenderness throughout. Skin: Warm, dry with normal turgor. Normal color with no rashes, no lesions, and no evidence of cellulitis. 13:30 Back: Left sided nephrostomy tube. Vital Signs: 12:44 BP 123 / 68; Pulse 85; Resp 17; Temp 98.3; Pulse Ox 98% ; Weight 92.99 kg; Height 5 ft. ap3 11 in. (180.34 cm); 14:48 BP 127 / 72; Pulse 86; Resp 18; Pulse Ox 98% on R/A; Pain 6/10; ld1 12:44 Body Mass Index 28.59 (92.99 kg, 180.34 cm) ap3 MDM: 13:29 ED course: Discussed case with Dr Gomez. No records of patient calling his office. ms3 Recommends KUB to ascertain if nephrostomy tube is in the correct position. Patient can follow up in clinic.. 13:31 Differential diagnosis: Nephrostomy tube dislodgement vs hydronephrosis vs msk pain. ms3 14:45 Patient medically screened. ms3 14:57 Data reviewed: vital signs, nurses notes, lab test result(s), radiologic studies. Data ms3 interpreted: Pulse oximetry: on room air is 98 %. Interpretation: normal. Counseling: I had a detailed discussion with the patient and/or guardian regarding: the historical points, exam findings, and any diagnostic results supporting the discharge/admit diagnosis, lab results, the need for outpatient follow up, to return to the emergency department if symptoms worsen or persist or if there are any questions or concerns that arise at home. 01/27 12:37 Order name: CBC with Diff; Complete Time: 14:07 ms3 01/27 12:37 Order name: BMP; Complete Time: 14:07 ms3 01/27 13:32 Order name: Abdomen 1 View (KUB) XRAY; Complete Time: 14:45 ms3 Administered Medications: No medications were administered Disposition Summary: 01/27/22 14:57 Discharge Ordered Location: Home ms3 Condition: Stable ms3 Diagnosis - Left flank pain ms3 - Hydronephrosis ms3 Followup: ms3 - With: Robin Gomez MD - When: 2 - 3 days - Reason: Recheck today's complaints Discharge Instructions: - Discharge Summary Sheet ms3 - Flank Pain, Adult ms3 Forms: - Medication Reconciliation Form ms3 - Thank You Letter ms3 - Antibiotic Education ms3 - Prescription Opioid Use ms3 Prescriptions: - Tylenol-Codeine #3 300 mg-30 mg Oral - take 1 tablet by ORAL route every 4-6 hours for 3 days; 18 tablet; Refills: 0, ms3 Product Selection Permitted Signatures: Dispatcher [employer] Sana Alston RN RN ap3 Liu Fagan DO DO ms3
[2022-01-27 15:29] VITALS: TEMP 98.3; O2SAT 98
[2022-01-27 15:30] VITALS: BP 127/72
== END 2022-01-27 15:16 | disposition home or self-care (01) ==
LOC: ER 11:10
DX: N13.30 Unspecified hydronephrosis (principal); I10 Essential (primary) hypertension; I48.91 Unspecified atrial fibrillation; Z72.0 Tobacco use; Z85.038 Personal history of other malignant neoplasm of large intestine
CPT/HCPCS: 36415; 74018; 80048; 85025; 99284

== ENCOUNTER 2022-02-09 07:25 | Observation (INO) | payer OTHER ==
[2022-02-05 13:33] LABS: Protime INR 0.95
[2022-02-09] MEDS ORDERED: Ringers Lactate 1,000 ML IV ONE ×2 (07:42→14:52)
[2022-02-09] MEDS ORDERED: CEFEPIME 1 GM in NA CHLORIDE 0.9% 100 ML IV ONE (08:00)
[2022-02-09] MEDS ORDERED: propofoL 200 MG/20 ML VIAL IV ONE (09:42)
[2022-02-09] MEDS ORDERED: FENTANYL CITR 100 MCG/2 ML ONE ×2 (09:42→12:30)
[2022-02-09] MEDS ORDERED: LIDOCAINE 1% MPF 5 ML VIAL ONE (09:43)
[2022-02-09] MEDS ORDERED: ROCURONIUM 50 MG/5 ML VIAL IV ONE ×2 (09:44→11:04)
[2022-02-09] MEDS: Gentamicin Inj 240 MG in NA CHLORIDE 0.9% 100 ML IV ONE ×2 (09:45→10:10)
[2022-02-09] MEDS ORDERED: ONDANSETRON 4 MG/2 ML VIAL ONE (09:45)
[2022-02-09] MEDS ORDERED: Phenylephrine HCl 10 MG/ML 1 ML VIAL ONE (11:14)
[2022-02-09] MEDS ORDERED: NS 0.9% VIAL 10 ML ONE (11:14)
[2022-02-09] MEDS ORDERED: SUGAMMADEX SODIUM 200 MG/2 ML VIAL IV ONE (11:34)
[2022-02-09] MEDS ORDERED: VECURONIUM 10 MG/VIAL IV ONE (11:36)
--- NOTE | 2022-02-09 13:00 | RAD REPORT ---
EXAM DESCRIPTION: RAD - Urethrocystogrphy Retrograde - 02/09/2022 12:54 pm CLINICAL HISTORY: LEFT STENT COMPARISON: No comparisons FINDINGS: One fluoroscopic image submitted. Total fluoro time: 4 minutes and 14 seconds
[2022-02-09] MEDS ORDERED: OPIUM/BELLADONNA SUPPOS (30-16.2 MG) PR ONE (14:52)
[2022-02-09] MEDS: MORPHINE 4 MG/ML SYR ONE ×3 (15:30→17:15)
[2022-02-09] MEDS: Ringers Lactate 1,000 ML IV SCH (17:12)
[2022-02-09] MEDS ORDERED: HYDROCODONE/APAP 5/325 MG TAB PO PRN (17:12)
[2022-02-09] MEDS ORDERED: ACETAMINOPHEN 500 MG TAB PO PRN ×2 (17:12→17:52)
[2022-02-09] MEDS ORDERED: ONDANSETRON 4 MG/2 ML VIAL IV PRN (17:12)
[2022-02-09] MEDS ORDERED: METHYLPREDNISOLONE 125 MG INJ ONE (17:23)
[2022-02-09] MEDS: CEFEPIME 1 GM in NA CHLORIDE 0.9% 100 ML IV SCH (20:12)
[2022-02-09] MEDS: HYDRALAZINE HCL 25 MG TABLET PO SCH (20:12)
[2022-02-09] MEDS: NYSTATIN PWDR 100000 UNIT/GM TOP SCH (20:13)
[2022-02-10] MEDS: Ringers Lactate 1,000 ML IV SCH ×2 (00:12→03:12)
[2022-02-10 02:25] VITALS: BMI 29.9
[2022-02-10 04:04] LABS: Absolute Lymphocytes (CBC) 0.7 K/uL (0.7-4.9); Hematocrit 40.3 % (39.6-49.0); MPV 8.5 fL (7.6-11.3); RBC Red Blood Cell Count 4.31 M/uL (4.33-5.43)
[2022-02-10 04:19] LABS: Potassium 5.1 mmol/L (3.5-5.1)
[2022-02-10 04:39] LABS: Blood Morphology Comment NOT SEEN (NOT SEEN); Platelet Estimate ADEQ
[2022-02-10] MEDS ORDERED: FUROSEMIDE 40 MG/4 ML VIAL IV ONE (08:14)
--- NOTE | 2022-02-10 08:38 | OP ---
Surgeon: MILAD MENDEZ Preoperative Diagnoses: 1.Bladder tumor. 2.Left hydronephrosis. 3.Left distal ureteral filling defect. Postoperative Diagnoses: 1.Bladder tumor. 2.Left hydronephrosis. 3.Left distal ureteral filling defect. 4.Left intertriginous region fungal infection/jock itch. Principal Procedures: 1.Cystoscopy. 2.Transurethral resection of a bladder tumor. 3.Antegrade access for retrograde pyelography. 4.Removal of nephrostomy tube. 5.Complicated/complex left ectopic ureteral access 4.8-Citizen [place] x 26 cm ureteral stent placement. 6.Urethral Harley catheter placement. Indication For Procedure: Mr. Peralta is an 81-year-old gentleman with history of atrial fibrillati on, not currently on Eliquis, but due to resume trauma, hypertension, and parkinsonian for mobility w ith history of stage IV colon cancer, status post open partial colectomy requiring left ureteral reim plantation at [facility], as well as adjuvant chemotherapy, who underwent cystoscopic evaluat ion on 01/29/2022, revealing a 1.5 cm pedunculated bladder tumor at the bladder neck anteriorly as we ll as ectopic reimplanted left ureter in the posterolateral dome region of the bladder with distal ur eteral density of uncertain significance on CT scan and chronic hydroureteronephrosis with left epidi dymal orchitis, underlying some groin pain secondary to complicated BPH with interdigitating lateral lobar hypertrophy causing lots and incomplete emptying. He was treated with Bactrim double strength tablets and had some modest improvement in his left scrotal/testicular pain, but it did not resolve. He was recommended for operative management of the bladder tumor and evaluation of the distal ureter al filling defect. Procedure In Detail: The patient was consented in the preoperative holding area before being transfe rred to the operative suite where general anesthesia was induced. He was given cefepime 1 g and gent amicin 240 mg IV antimicrobial prophylaxis due to highly resistant organisms cultured from his nephro stomy. Pneumo boots were provided for DVT prophylaxis. He was placed in the lithotomy position, pad ded, and secured to the table appropriately. A bump was placed under his left hip to elevate it, so that I could gain access to the left nephrostomy tube. The flank region including the nephrostomy tu be was carefully prepped using ChloraPrep and draped in standard fashion. His genitalia were prepped using Hibiclens and draped. The case was begun initially performing an antegrade nephrostogram conf irming the appropriate positioning of the nephrostomy tube within the calyx of the kidney on the left . I then attempted to pass a Sensor wire via the nephrostomy tube, but it would not pass given the C ope-loop technology employed. As a result, I had to cut the nephrostomy tube, at which point, I was able to then pass the Sensor wire via the nephrostomy tube into the renal pelvis, where a coil was ob served fluoroscopically. I removed the nephrostomy tube over the Sensor wire, leaving it in place. I then advanced a 5-[place] ureteral access catheter over the wire into the renal pelvis and attempted to navigate the Sensor wire down the UPJ into the proximal ureter. Unfortunately, the wire would no t pass as there was some apparent stenosis in that region. Repeat injection of contrast for the ante grade nephrostogram did delineate contrast down into the mid ureter with some narrowing at the UPJ, b ut no filling defects noted at least within the proximal ureter. The distal ureter would not opacify despite increased injection of contrast. The remainder of the calices also completely opacified wit hout any filling defects noted. As a result, I then employed an angled Glidewire to attempt to gain access down the UPJ, but despite this, antegrade ureteral access could not be achieved. As a result, I turned my attention to cystoscopic evaluation and management. Using a 22-[place] rigid cystoscope, his urethra was traversed and his bladder entered. I decompresse d his bladder of fluid and urine and surveyed the bladder in its entirety. I identified an area with in the anterior wall of the bladder, the putative reimplanted ureteral orifice on the left, but I was unable to gain enough of an angle to adequately cannulate the ureteral orifice using the rigid cysto scope. As a result, I then employed the flexible cystoscope to attempt to visualize the ureteral vinita fice and cannulate it directly, but due to a ines-py-ilqeexan degree of hematuria, it was difficult t o visualize. As a result, I then removed the flexible cystoscope and having left the Sensor wire and 5-[place] ureteral access catheter cannulating the left kidney emanating externally, I then employed urethral sounds to dilate the meatus and fossa navicularis to 30-Citizen [place]. Then, utilizing the 26-Fren ch bipolar resectoscope and a thin loop, I traversed the urethra and entered his bladder. I then adrián ntified the bladder tumor and resected it carefully from its anterior location extending into the shania dder neck on the right side. Once resected, the bladder chips were removed and sent for pathologic a nalysis. Careful fulguration of the base of the lesion was performed to achieve hemostasis. At this point, continued bleeding was noted from the prostatic urethra and attempts to fulgurate that was pe rformed before I then performed prostatic urethral biopsies from the 5 o'clock and the 7 o'clock posi tions, which were also sent for pathologic analysis. I was then able to completely fulgurate the bas e of the prostatic lesion and achieved adequate hemostasis. I then carefully surveyed his bladder ag ain for any residual tumors, and while there was a mild degree of hematuria, I was able to see adequa tely enough to tell that there were no immediately visible additional tumors. As a result, I then de compressed the bladder and employed the flexible cystoscope again and with lots of difficulty and ruthy e spent, I was finally able to identify the reimplanted ureteral orifice and using a wire pass via th e cystoscope, I was able to navigate the tip of the Sensor wire into the ureteral orifice, and with g reat difficulty, navigate the wire up the distal into the mid and proximal ureter. At this point, th e wire began to coil within the bladder and pushed the flexible cystoscope out; so I removed the cyst oscope leaving the wire in place, and I back-loaded the rigid cystoscope over the wire. I then utili zed this more rigid scope to directly introduce the wire into the renal pelvis and calices where a co il was formed fluoroscopically. Over the wire, I then passed a 5-[place] ureteral access catheter wit h minimal difficulty due to stenosis at the reimplanted ureteral orifice, but I was able to navigate it into the collecting system. I then made an assessment as to whether I might be able to perform ur eteroscopy in this setting to assess the distal ureter. I thus removed the 5-[place] ureteral access catheter, leaving the Sensor wire in place within the col lecting system, and I attempted to pass a dual-lumen catheter over the Sensor wire into the distal ur eter. Unfortunately, it was halted at the level of the ureteral orifice and did cause coiling within the bladder. As a result, after a couple of attempts at this, I removed the dual-lumen catheter and again backloaded the rigid cystoscope, attempting to pass a 6-[place] x 26 cm double-J stent. Unfort unately, the 6-[place] stent encountered the stenosis at the reimplanted ureteral orifice, and would n ot pass beyond the stenosis and cause coiling of the wire again within the bladder, nearly displacing the wire by causing it to come down into the proximal ureter. With great difficulty, I then was abl e to use the rigid biopsy forceps to grasp the stent and deliver the coil of the stent that was extra within the bladder to the meatus. I was then able to correct the trajectory of the wire and the kar nt going into the ectopic reimplanted ureteral orifice and advanced the wire back into the collecting system. I thus removed the 6-[place] stent and passed over it a 4.8-[place] stent. I attempted to pa ss this fluoroscopically into the collecting system, but it would not pass easily; so I had to back l oad the rigid cystoscope over the safety wire with the stent in place and navigated into the bladder. I then had to correct the trajectory of the wire again, advancing the wire and the stent simultaneo usly into the mid and proximal ureter before entering the collecting system. Two assistants were req uicordelia to provide compression on the anterior wall of the bladder, hold the cystoscope in appropriate position while I then passed the stent requiring 2 hands to get it to coil within the upper pole of t he kidney. An additional coil was formed cystoscopically within the bladder. I then placed a 20-[place] nch 2-way Harley catheter into his bladder and he was taken out of the lithotomy position. He was aris kened from general anesthesia, transferred to a stretcher, and then transferred to the recovery room in good condition. Complications: None. Discharge Disposition: He will need to follow up for repeat operative evaluation at this time with h opeful ureteroscopy to evaluate the distal portion of the ectopic/reimplanted left ureter for any annalisa or underlying the filling defect. In the meantime, we will follow up to discuss the results of the p athology of his bladder tumor resection, and consider potential benefit of adjuvant intravesical chem otherapy versus BCG. This would also reflux up the stent and may treat any urothelial carcinoma that may have entered into his distal ureter and potentially cause some of that filling defect. JULIANNA/MAVIS Voice ID: [id number] Report ID: [id number]
[2022-02-10 08:43] VITALS: O2SAT 100
[2022-02-10] MEDS ORDERED: Gentamicin Inj 240 MG in NA CHLORIDE 0.9% 100 ML IVPB SCH (09:00)
[2022-02-10] MEDS ORDERED: predniSONE 10 MG TAB PO SCH (09:00)
[2022-02-10] MEDS ORDERED: CARBIDOPA PO SCH (09:00)
[2022-02-10] MEDS ORDERED: METOPROLOL TAR 50 MG TAB PO SCH (09:00)
[2022-02-10] MEDS ORDERED: lisinopriL 20 MG TAB PO SCH (09:00)
[2022-02-10] MEDS ORDERED: LEVODOPA PO SCH (09:00)
[2022-02-10] MEDS: NYSTATIN PWDR 100000 UNIT/GM TOP SCH (09:00)
[2022-02-10] MEDS: HYDRALAZINE HCL 25 MG TABLET PO SCH (09:00)
[2022-02-10] MEDS ORDERED: CEFEPIME 1 GM in NA CHLORIDE 0.9% 100 ML IV SCH (09:00)
[2022-02-10 09:12] VITALS: BP 110/61; TEMP 97.4
[2022-02-10] MEDS: CEFEPIME 1 GM in NA CHLORIDE 0.9% 100 ML IV SCH (09:15)
--- NOTE | 2022-02-10 19:21 | P.DS ---
Admission Date: 02/09/22 Discharge Date: 02/10/22 Discharge Condition: GOOD Reason for Admission: Post-op pain management and hypotension Procedures: TURBT and antegrade-retrograde left pyelography with complicated left ureteral stent placement and nephrostomy tube extraction 02/09/21 Brief History of Present Illness: 81-year-old gentleman with history of atrial fibrillation, not currently on Eliquis, hypertension and parkinsonian poor mobility with history of stage IV colon cancer status post open partial colectomy requiring left ureteral reimplantation @ [facility] [place] and adjuvant chemotherapy p cystoscopy 01/29/2022 revealing a 1.5 cm pedunculated bladder neck tumor, ectopic/reimplanted left ureter in the posterior lateral dome region of the bladder with distal ureteral density of uncertain significance on CT and chronic hydroureteronephrosis with left epididymoorchitis likely underlying the groin pain secondary/complicating BPH with interdigitating lateral lobar hypertrophy causing LUTS and incomplete emptying s/p TURBT and complicated left ureteral stent placement and nephrostomy tube extraction with postop hypotension and pain control issues. Hospital Course: He was admitted overnight, given IV fluids and antibiotics, oral pain management, and catheter decompression. The catheter was removed first thing this morning, and he has since voided easily and without issue. He also notes only minimal gross hematuria at this time. His pain is completely resolved, and he was feeling great. Nystatin powder was also applied to the left intertriginous region because of signs of severe complicating jock itch noted there. Examination: Well-appearing and in no acute distress Alert, awake, oriented Very hard of hearing No dyspnea or sign of respiratory distress Standing having come out of the bathroom from taking a shower, now getting dressed Vital Signs/Physical Exam: Temp Pulse Resp BP Pulse Ox 97.4 F 95 H 18 110/61 99 02/10/22 08:00 02/10/22 09:14 02/10/22 08:00 02/10/22 09:14 02/10/22 08:00 General: Alert, In no apparent distress HEENT: Atraumatic Respiratory: Normal air movement Laboratory Data at Discharge: WBC 13.2 K/uL (4.3-10.9) H D 02/10/22 03:10 Hgb 12.9 g/dL (13.6-17.9) L 02/10/22 03:10 Hct 40.3 % (39.6-49.0) 02/10/22 03:10 Plt Count 192 K/uL (152-406) 02/10/22 03:10 PT 10.4 SECONDS (9.5-12.5) 02/05/22 13:00 INR 0.95 02/05/22 13:00 Sodium 133 mmol/L (136-145) L 02/10/22 03:10 Potassium 5.1 mmol/L (3.5-5.1) 02/10/22 03:10 BUN 31 mg/dL (7-18) H 02/10/22 03:10 Creatinine 1.87 mg/dL (0.55-1.3) H 02/10/22 03:10 Glucose 169 mg/dL (74-106) H 02/10/22 03:10 Home Medications: Carbidopa/Levodopa [Carbidopa-Levo ER 50-200 Tab] 1 tab PO BID 12/11/21 Hydralazine HCl 50 mg PO BID 12/11/21 Lisinopril [Zestril] 20 mg PO DAILY 12/11/21 Metoprolol Succinate 50 mg PO DAILY 12/11/21 predniSONE [Prednisone*] 20 mg PO DAILY 12/11/21 Acetaminophen [Tylenol] 650 mg PO DAILY 02/05/22 Meclizine HCl [Antivert] 25 mg PO PRN 02/05/22 Ciprofloxacin HCl 500 mg PO Q12H #20 tablet 02/09/22 Codeine/APAP [Tylenol W/Codeine #3 tab] 1 tab PO Q6HP PRN #12 tab 02/09/22 New Medications: Codeine/APAP [Tylenol W/Codeine #3 tab] 1 tab PO Q6HP PRN #12 tab PRN Reason: Pain Ciprofloxacin HCl 500 mg PO Q12H #20 tablet Physician Discharge Instructions: You have a ureteral stent within your left kidney and its reimplanted/ectopic ureteral orifice, which was stenotic/strictured and causing obstruction and hydronephrosis/swelling of the left kidney. I was unable to evaluate the lower part of the left ureter, the tube draining the kidney to the bladder, which was part of the concern observed on the imaging done because of the visible blood in your urine. It took great difficulty to gain access to the stenotic ureteral orifice just to place the stent. So we will need a return trip to the operating room to investigate this within the next several weeks. The stent should allow the stenotic orifice to dilate to allow me to investigate the lower part of the ureter adequately. You may expect to have some flank discomfort on the left side that extends into your left lower quadrant anteriorly/by your bladder. This is because of the stent. The stent may also cause some urgency to urinate or cause you to need to urinate frequently. The stent also may allow for ongoing blood in the urine to occur. Once your urine is no longer regularly pink/bloody and perhaps is only intermittently so, we will have you resume your Eliquis. However, please do not resume it before Tuesday next week, 02/15/2022. Please remember that we will need you to stop taking it 3 days prior to the next operative evaluation, which we will schedule to occur in the next several weeks. Notify me if you develop any fever (temperature greater than 100.4 Fahrenheit), intractable nausea or vomiting, increasing pain not controlled by pain medications, or bright red and thick/nontranslucent blood in the urine (appearing like tomato juice). You may take plain Tylenol (up to 1000 mg every 6 hours maximum) and alternate it with Motrin/ibuprofen (up to 400 mg every 8 hours maximum) for pain. I have also sent a gentle narcotic to your pharmacy, which also contains Tylenol/acetaminophen. Take care to keep the total 24-hour daily dose of Tylenol/acetaminophen less than 4000 mg / 4 g. Contact my office to arrange follow-up to discuss the pathology of the bladder tumor also removed today within the next 3 weeks. We will discuss the neck steps in management of that also at that time. All the best! WBR Diet: Renal Activity: Ad celso Followup: Robin Gomez [ACTIVE - CAN ADMIT] - (within 3 weeks)
== END 2022-02-10 13:00 | disposition home or self-care (01) ==
LOC: OR 07:25 → 4TH 17:41
PROVIDERS: ADMIT Urology; ATTEND Urology
PROC: 0TBD8ZX Excision of Urethra, Via Natural or Artificial Opening Endoscopic, Diagnostic (ICD-10-PCS; 2022-02-09)
PROC: 0TBC8ZX Excision of Bladder Neck, Via Natural or Artificial Opening Endoscopic, Diagnostic (ICD-10-PCS; 2022-02-09)
PROC: BT12YZZ Fluoroscopy of Left Kidney using Other Contrast (ICD-10-PCS; 2022-02-09)
PROC: 0T778DZ Dilation of Left Ureter with Intraluminal Device, Via Natural or Artificial Opening Endoscopic (ICD-10-PCS; principal; 2022-02-09 09:00)
DX: C67.5 Malignant neoplasm of bladder neck (principal); N13.30 Unspecified hydronephrosis; I95.81 Postprocedural hypotension; N45.3 Epididymo-orchitis; N40.1 Benign prostatic hyperplasia with lower urinary tract symptoms; R39.14 Feeling of incomplete bladder emptying; L30.4 Erythema intertrigo; B35.6 Tinea cruris; I48.91 Unspecified atrial fibrillation; I10 Essential (primary) hypertension; G20 Parkinson's disease; Z85.038 Personal history of other malignant neoplasm of large intestine; Z90.49 Acquired absence of other specified parts of digestive tract; Z20.822 Contact with and (suspected) exposure to COVID-19
CPT/HCPCS: 52500; 52332; 52204; 50431; 87088; 85025; 87086; 80048; 36415 ×2; 85610; 88305; 88307; 87077 ×2; 87186 ×2; 74450; 51610; 94010; U0003; G0379; J2704; J2370; J1940; J7512; J1580 ×2; J3010 ×2; J7120 ×3; J2930; J2405; J0692 ×3; G0378 ×2

== ENCOUNTER 2022-03-09 09:57 | Day surgery (SDC) | payer OTHER ==
[2022-03-04 12:21] LABS: Absolute Lymphocytes (CBC) 1.3 K/uL (0.7-4.9); Hematocrit 37.7 % (39.6-49.0); Lymphocytes % 12.6 % (15.3-44.8); MPV 7.7 fL (7.6-11.3); RBC Red Blood Cell Count 4.02 M/uL (4.33-5.43)
[2022-03-04 12:27] LABS: Protime INR 1.08
[2022-03-04 12:36] LABS: Potassium 4.5 mmol/L (3.5-5.1)
[2022-03-04 13:05] LABS: SARS-CoV-2 Antigen Rapid Res Negative (Negative)
[2022-03-09] MEDS ORDERED: Ringers Lactate 1,000 ML IV ONE (10:15)
[2022-03-09 10:29] LABS: Urine Appearance Clear (Clear); Urine Bilirubin Negative (Negative); Urine Blood 2+ (Negative); Urine Color Yellow (Yellow); Urine Glucose Negative (Negative); Urine Protein 2+ (Negative); Urine Specific Gravity 1.025 (1.005-1.030); Urine Urobilinogen 0.2 mg/dL (0.2-1.0)
[2022-03-09 10:32] LABS: Urine Microscopic Reflex ORDER UMIC
[2022-03-09 10:40] LABS: Urine Bacteria 20-50 /HPF (NONE SEEN); Urine RBC >50 /HPF (NONE SEEN)
[2022-03-09] MEDS ORDERED: ACETAMINOPHEN 500 MG TAB ONE (10:51)
[2022-03-09] MEDS ORDERED: HYDROCORTISONE SUC 100 MG INJ ONE (10:53)
[2022-03-09] MEDS ORDERED: FENTANYL CITR 100 MCG/2 ML ONE (12:19)
[2022-03-09] MEDS ORDERED: ONDANSETRON 4 MG/2 ML VIAL ONE ×2 (12:20→14:43)
[2022-03-09] MEDS ORDERED: propofoL 200 MG/20 ML VIAL IV ONE (12:20)
[2022-03-09] MEDS ORDERED: CEFAZOLIN 2 GM IN 0.9% NACL 2 GM/100 ML BAG ONE (12:42)
[2022-03-09] MEDS ORDERED: ROCURONIUM 50 MG/5 ML VIAL IV ONE (13:07)
--- NOTE | 2022-03-09 14:31 | RAD REPORT ---
EXAM DESCRIPTION: RAD - Urethrocystogrphy Retrograde - 03/09/2022 2:13 pm CLINICAL HISTORY: LT STENT COMPARISON: Urethrocystogrphy Retrograde dated 02/09/2022 FINDINGS: Total fluoro time: 6 minutes and 33 seconds
[2022-03-09] MEDS ORDERED: PROMETHAZINE INJ 25 MG/ML AMP ONE (14:52)
[2022-03-09] MEDS ORDERED: ALBUTEROL 2.5 MG/3 ML NEB SOL ONE (15:02)
[2022-03-09] MEDS ORDERED: METOCLOPRAMIDE 10 MG/2mL INJ ONE (15:09)
[2022-03-09] MEDS: HYDROMORPHONE HCL 1 MG/ML INJ ONE ×2 (15:15→15:25)
[2022-03-09] MEDS ORDERED: HYDROCODONE/APAP 5/325 MG TAB PO PRN (16:32)
[2022-03-09] MEDS ORDERED: HYDROCODONE/APAP 5/325 MG TAB ONE (17:20)
[2022-03-09 17:30] VITALS: BP 108/57; TEMP 97.6; O2SAT 95
--- NOTE | 2022-03-10 05:03 | OP ---
Surgeon: MILAD MENDEZ Preoperative Diagnoses: 1.Left distal ureteral filling defect. 2.Gross hematuria. 3.Noninvasive urothelial carcinoma of the bladder. 4.Left reimplanted ureteral orifice stenosis. Postoperative Diagnoses: 1.Left distal ureteral filling defect. 2.Gross hematuria. 3.Noninvasive urothelial carcinoma of the bladder. 4.Left distal reimplanted ureteral tumor. 5.Left reimplanted ureteral orifice stenosis. Principle Procedures: 1.Cystoscopy. 2.Complex left ureteral balloon dilation of reimplanted ureteral stricture at the ureterovesical yanet ction. 3.Complex left ureteroscopy with ureteral tumor biopsy. 4.Left renal wash barbotage cytology. 5.Complex left ureteral stent exchange. Indication For Procedure: Mr. Peralta is an 81-year-old gentleman with history of atrial fibrillati on, hypertension, and parkinsonian, poor mobility with history of stage IV colon cancer, status post open partial colectomy, requiring left ureteral reimplantation at [facility] due to ureteral injury during the procedure. He received adjuvant chemotherapy and underwent cystoscopic evaluation revealing the presence of a 1.5 cm pedunculated bladder neck tumor as well as the visible evidence of an ectopic/reimplanted left ureter in the posterolateral dome region of the bladder with distal uret eral density observed on CT of significance as well as hydroureteronephrosis. He had left epididymo- orchitis, which was presumptively underlying some pain that he was complaining about in his left groi n. Of note, he also had a significant erythematous fungal-appearing rash within the intertriginous r egion of his left groin, which was also treated with nystatin powder on his prior operative excursion on discharge. I was able with great difficulty to perform resection of the tumor, but the difficult y was really in achieving stenting of the reimplanted ureter site on the prior visit. The only thing that able to be passed was a 4.8-Cymraes ureteral stent. He presents today for definitive evaluation of the left ureteral filling defect. Procedure In Detail: The patient was consented in the preoperative holding area before being transfe rred to the operative suite where general anesthesia was induced using an LMA. He was given Ancef 2 g IV antimicrobial prophylaxis and pneumo boots were provided for DVT prophylaxis. He was placed in the lithotomy position, padded and secured to the table appropriately. His genitalia were prepped us ing Hibiclens and he was draped in standard fashion. The case was begun using a 22-Cymraes rigid cyst oscope to traverse the urethra and into the bladder with relative ease. There was fibrinous debris w ithin the prostatic urethra where prior resection had been performed and there was significant gross hematuria within the bladder that obscured visualization. I thus decompressed his bladder and refill ed it with saline in an attempt to visualize. Efforts to irrigate the bladder were then made and I w as able to visualize enough to see the stent emanating from its reimplanted site in the anterior post erolateral dome on the left. I thus grasped the stent using an alligator grasper and brought the coi l of the stent to the penile meatus while the chordee ending the penis in the process to decrease the amount of stent that would have to be removed and retracted from its reimplanted ureteral site. I w as then able to pass a Sensor wire via the 4.8-Cymraes stent successfully into the upper pole calyces of the kidney. Over the Sensor wire, I passed a 5-Cymraes ureteral access catheter with mild difficul ty, but was able to navigate this also into the putative collecting system. I then performed a retro grade pyelogram. Left retrograde pyelography: Using a 70:30 mixture of Omnipaque and saline, I injected the contrast mixture via the 5-Cymraes ureteral access catheter and did delineate the upper pole and mid pole calyc es of the left kidney. They were moderately hydronephrotic with some caliectasis and no filling defe cts were noted within the upper or mid pole. Eventually, the lower pole did also delineate as the 5- Cymraes ureteral access catheter was high within the tip of the upper pole calyx. No filling defects were noted within the renal pelvis or within the calyces of the kidney. As such, I then passed a Sup er Stiff wire via the 5-Cymraes ureteral access catheter and coiled it within the upper pole of the ki dney. Over the Super Stiff wire, I then attempted to pass a 12 x 14-Cymraes dual-lumen catheter, but it would not pass beyond the area of stenosis at the reimplanted ureteral orifice. As a result, I em ployed a ureteral dilator balloon catheter that was 10 cm long and 15-Cymraes in maximum diameter, and I was able to dilate the stenotic ureteral orifice. Eventually dilating a narrow waist that was obs erved within the balloon by increasing the pressure to a maximum of 24 mmHg. Eventually, the waist w as no longer visible, so I deflated the balloon and removed the balloon catheter. At this time, I wa s able to pass over the Super Stiff wire a dual-lumen catheter successfully into the renal pelvis. I was then able to perform a barbotage cytology by aspirating fluid instilled into the renal pelvis an d sending that for pathologic analysis. I then passed the Bentson guidewire via the second lumen of the dual-lumen catheter into the collecting system. Over the Bentson guidewire, I then attempted to pass a ureteral access sheath that was 12 x 14-Cymraes, but this would not successfully pass beyond th e ureteral orifice of the reimplanted ureter. As a result, I then utilized the flexible ureteroscope , passed over the Bentson guidewire, which was able to be navigated into the distal ureter at least a few centimeters up to the level of the pelvic brim. There, it would not pass any further and the kaitlynn dy of the ureteroscope began to coil within the bladder, but I was able to visualize a papillary urot helial-appearing tumor within the distal ureter, which was likely the source of the filling defect. I thus employed a Piranha alligator grasper passed via the flexible ureteroscope and attempted to bio psy the tissue in that region. It is unclear how successful we were at biopsying the tissue as due t o the coils within the ureteroscope, the Piranha biopsy did break and the jaws would not close and re mained open. As a result, the entirety of the ureteroscope had to be removed with the jaws of the Pi ranha open, but there was tissue still within the jaws and this was sent for pathologic analysis as l eft distal ureteral tumor biopsy. I then backloaded the rigid cystoscope over the Super Stiff wire a nd was unable to pass a 7-Cymraes x 28 cm double-J stent over the Super Stiff wire and nearly into the collecting system at the level of the UPJ where there was significant ureteral tortuosity there. I was unable to navigate the proximal coil all the way into the renal pelvis as desired, but it at leas t coiled within the proximal ureter and stented the area of the ectopic reimplanted ureteral orifice as desired at this point. His bladder was then decompressed of fluid and urine, and he was taken out of the lithotomy position. He was then awakened from general anesthesia, transferred to a stretcher , and then transferred to the recovery room in good condition. Complications: None. Discharge Disposition: He should follow up in the Urology Clinic for review of the pathology and det ermination of next steps to manage his left reimplanted ureter tumor, suspicious for urothelial carci noma as well as the noninvasive urothelial carcinoma of his bladder with either BCG or potentially in travesical chemotherapy for the latter, but potentially nephroureterectomy for the former. JULIANNA/MAVIS Voice ID: [id number] Report ID: [id number]
== END 2022-03-09 17:45 | disposition home or self-care (01) ==
LOC: OR 09:57
PROVIDERS: ATTEND Urology
PROC: 0T9780Z Drainage of Left Ureter with Drainage Device, Via Natural or Artificial Opening Endoscopic (ICD-10-PCS; 2022-03-09)
PROC: 0T778DZ Dilation of Left Ureter with Intraluminal Device, Via Natural or Artificial Opening Endoscopic (ICD-10-PCS; 2022-03-09)
PROC: 0TB78ZX Excision of Left Ureter, Via Natural or Artificial Opening Endoscopic, Diagnostic (ICD-10-PCS; principal; 2022-03-09 11:30)
DX: D09.0 Carcinoma in situ of bladder (principal); R31.0 Gross hematuria; D49.59 Neoplasm of unspecified behavior of other genitourinary organ; R93.41 Abnormal radiologic findings on diagnostic imaging of renal pelvis, ureter, or bladder; I48.91 Unspecified atrial fibrillation; I10 Essential (primary) hypertension; Z85.038 Personal history of other malignant neoplasm of large intestine; Z20.822 Contact with and (suspected) exposure to COVID-19
CPT/HCPCS: 52354; 52344; 52332; 87088 ×2; 85025; 87086 ×2; 80048; 36415; 88108; 85610; 88305 ×2; 74450; 51610; 87811; J2704; J2765; J2550; J3010; J1170; J0690; J7120; J1720; J2405 ×2; 81003; 81015

== ENCOUNTER 2022-03-23 23:26 | Inpatient (IN) | payer OTHER ==
[2022-03-24] MEDS ORDERED: ONDANSETRON 4 MG/2 ML VIAL ONE ×2 (00:30→03:38)
[2022-03-24] MEDS ORDERED: MORPHINE 4 MG/ML SYR ONE ×2 (00:30→03:38)
[2022-03-24] MEDS ORDERED: NA CHLORIDE 0.9% 500 ML ONE (00:39)
[2022-03-24 01:01] LABS: Absolute Lymphocytes (CBC) 1.9 K/uL (0.7-4.9); Hematocrit 36.1 % (39.6-49.0); Lymphocytes % 18.2 % (15.3-44.8); MPV 8.7 fL (7.6-11.3); RBC Red Blood Cell Count 3.84 M/uL (4.33-5.43)
[2022-03-24 01:09] LABS: Protein, Total 5.8 g/dL (6.4-8.2)
[2022-03-24 03:45] LABS: Urine Blood 3+ (Negative); Urine Glucose Negative (Negative); Urine Protein 2+ (Negative); Urine Specific Gravity >=1.030 (1.005-1.030)
[2022-03-24 04:31] LABS: Urine Bacteria <20 /HPF (NONE SEEN); Urine RBC >50 /HPF (NONE SEEN); Urine Urothelial Cells <5 /HPF (NONE SEEN)
--- NOTE | 2022-03-24 04:33 | ER ---
Nurse's Notes [facility] Name: Carlitos Peralta Age: 81 yrs Sex: Male : 1940 Arrival Date: 03/23/2022 Time: 23:27 Bed 26 Private MD: Diagnosis: Groin pain, Left;Pyelonephritis Presentation: 03/23 23:27 Chief complaint: EMS states: pt c/o groin pain, hx of bladder cancer. Coronavirus as6 screen: At this time, the client does not indicate any symptoms associated with coronavirus-19. Ebola Screen: No symptoms or risks identified at this time. Initial Sepsis Screen: Does the patient meet any 2 criteria? No. Patient's initial sepsis screen is negative. Does the patient have a suspected source of infection? No. Patient's initial sepsis screen is negative. Risk Assessment: Do you want to hurt yourself or someone else? Patient reports no desire to harm self or others. Onset of symptoms was March 22, 2022. 23:27 Method Of Arrival: EMS: [facility] as6 23:27 Acuity: LUISITO 3 as6 Historical: - Allergies: 23:30 No Known Allergies; as6 - Home Meds: 23:30 carbidopa-levodopa 50-200 mg Oral TbER 1 tab 2 times per day [Active]; gabapentin 300 as6 mg oral cap 1 cap 3 times per day [Active]; hydralazine 50 mg Oral tab 1 tab daily [Active]; prednisone 20 mg Oral tab once daily [Active]; metoprolol tartrate 50 mg Oral tab 1 tab once daily [Active]; - PMHx: 23:30 a fib; Arthritis; CA; Hypertensive disorder; as6 - PSHx: 23:30 colon cancer sx; hernia repair; mult eye sx; as6 - Immunization history:: Client reports receiving the 2nd dose of the Covid vaccine. - Social history:: Smoking status: Patient reports the use of cigarette tobacco products, pipe. Screenin:35 Abuse screen: Denies threats or abuse. Denies injuries from another. Nutritional as6 screening: No deficits noted. Tuberculosis screening: No symptoms or risk factors identified. Fall Risk None identified. Assessment: 03/24 00:00 General: Appears uncomfortable, Behavior is cooperative. Neuro: Level of Consciousness as6 is awake, alert, obeys commands. Cardiovascular: Edema is 3+ to BLE. Respiratory: Respiratory effort is even, unlabored. : Reports burning with urination. 00:16 Pain: Complains of pain in groin. kd3 Vital Signs: 03/23 23:27 BP 111 / 72; Pulse 83; Resp 20 S; Temp 98.3(O); Pulse Ox 97% on R/A; Weight 95.25 kg as6 (R); Height 5 ft. 11 in. (180.34 cm) (R); Pain 06/21; 03/24 01:30 BP 118 / 75; Pulse 96; Resp 18 S; Pulse Ox 100% on R/A; as6 03:07 BP 117 / 66; Pulse 81; Resp 18 S; Pulse Ox 100% on R/A; as6 04:00 BP 108 / 66; Pulse 75; Resp 18 S; Pulse Ox 100% on R/A; as6 05:11 BP 123 / 73; Pulse 78; Resp 18 S; Pulse Ox 99% on R/A; as6 03/23 23:27 Body Mass Index 29.29 (95.25 kg, 180.34 cm) as6 ED Course: 03/23 23:27 Patient arrived in ED. as6 23:30 Triage completed. as6 23:35 Arm band placed on. as6 23:35 Bed in low position. Call light in reach. Side rails up X2. Pulse ox on. NIBP on. Warm as6 blanket given. 23:36 Salvador Grullon MD is Attending Physician. 7 03/24 00:16 Marcela Argueta, GIANNA is Primary Nurse. kd3 01:11 US Scrotum Testicles In Process Unspecified. EDMS 01:26 CT Abd/Pelvis - Without Contrast In Process Unspecified. EDMS 02:00 Maintain EMS IV. Dressing intact. Good blood return noted. Site clean \T\ dry. Gauge \T\ as 6 site: 20G left hand. 04:31 Danny Schultz MD is Hospitalizing Provider. mh7 05:09 No provider procedures requiring assistance completed. Patient admitted, IV remains in as6 place. Administered Medications: 00:29 Drug: morphine 4 mg Route: IVP; Infused Over: 4 mins; Site: left antecubital; kd3 05:12 Follow up: Response: No adverse reaction as6 00:29 Drug: Zofran (Ondansetron) 4 mg Route: IVP; Site: left antecubital; kd3 05:12 Follow up: Response: No adverse reaction as6 00:35 Drug: NS 0.9% 500 ml Route: IV; Rate: bolus; Site: left hand; kd3 04:39 Follow up: IV Status: Completed infusion kd3 03:45 Drug: morphine 4 mg Route: IVP; Infused Over: 4 mins; Site: left hand; as6 05:11 Follow up: Response: No adverse reaction as6 03:45 Drug: Zofran (Ondansetron) 4 mg Route: IVP; Site: left hand; as6 05:11 Follow up: Response: No adverse reaction as6 04:39 Drug: Rocephin (cefTRIAXone) 1 grams Route: IV; Rate: per protocol; Site: left hand; kd3 04:39 Follow up: IV Status: Completed infusion kd3 Medication: 05:10 VIS not applicable for this client. as6 Outcome: 04:33 Decision to Hospitalize by Provider. mh7 05:10 Admitted to ER Hold. Please see [facility] for further documentation. as6 05:10 Condition: stable 05:10 Instructed on the need for admit. 14:54 Patient left the ED. iw Signatures: Dispatcher [employer] Gisela Guadarrama, GIANNA KATZ iw Salvador Grullon MD MD mh7 Cole Norton RN RN as6 Marcela Argueta RN RN kd3
--- NOTE | 2022-03-24 04:33 | EDPHYS ---
Physician Documentation [facility] Name: Carlitos Peralta Age: 81 yrs Sex: Male : 1940 Arrival Date: 03/23/2022 Time: 23:27 Bed 26 Private MD: ED Physician Salvador Grullon HPI: 03/24 00:05 This 81 yrs old Male presents to ER via EMS with complaints of Groin Pain. mh7 00:05 The patient presents with left groin pain. mh7 00:05 Onset: The symptoms/episode began/occurred 2 day(s) ago. mh7 00:05 Modifying factors: The symptoms are alleviated by nothing, the symptoms are aggravated mh7 by movement, pressure. Associated signs and symptoms: Pertinent positives: dysuria, Pertinent negatives: abdominal pain, constipation, diarrhea, fever, hematuria, nausea, vomiting. Severity of symptoms: At their worst the symptoms were moderate, 2 day(s) ago, in the emergency department the symptoms have improved, moderately. The patient has experienced similar episodes in the past, several times. Historical: - Allergies: 03/23 23:30 No Known Allergies; as6 - Home Meds: 23:30 carbidopa-levodopa 50-200 mg Oral TbER 1 tab 2 times per day [Active]; gabapentin 300 as6 mg oral cap 1 cap 3 times per day [Active]; hydralazine 50 mg Oral tab 1 tab daily [Active]; prednisone 20 mg Oral tab once daily [Active]; metoprolol tartrate 50 mg Oral tab 1 tab once daily [Active]; - PMHx: 23:30 a fib; Arthritis; CA; Hypertensive disorder; as6 - PSHx: 23:30 colon cancer sx; hernia repair; mult eye sx; as6 - Immunization history:: Client reports receiving the 2nd dose of the Covid vaccine. - Social history:: Smoking status: Patient reports the use of cigarette tobacco products, pipe. ROS: 03/24 00:05 Constitutional: Negative for fever, chills, and weight loss, Eyes: Negative for injury, mh7 pain, redness, and discharge, ENT: Negative for injury, pain, and discharge, Neck: Negative for injury, pain, and swelling, Cardiovascular: Negative for chest pain, palpitations, and edema, Respiratory: Negative for shortness of breath, cough, wheezing, and pleuritic chest pain, Back: Negative for injury and pain, MS/Extremity: Negative for injury and deformity, Skin: Negative for injury, rash, and discoloration, Neuro: Negative for headache, weakness, numbness, tingling, and seizure, Psych: Negative for depression, anxiety, suicide ideation, homicidal ideation, and hallucinations, Allergy/Immunology: Negative for hives, rash, and allergies, Endocrine: Negative for neck swelling, polydipsia, polyuria, polyphagia, and marked weight changes, Hematologic/Lymphatic: Negative for swollen nodes, abnormal bleeding, and unusual bruising. Exam: 00:05 Head/Face: Normocephalic, atraumatic. Eyes: Pupils equal round and reactive to light, mh7 extra-ocular motions intact. Lids and lashes normal. Conjunctiva and sclera are non-icteric and not injected. Cornea within normal limits. Periorbital areas with no swelling, redness, or edema. Neck: Trachea midline, no thyromegaly or masses palpated, and no cervical lymphadenopathy. Supple, full range of motion without nuchal rigidity, or vertebral point tenderness. No Meningismus. Chest/axilla: Normal chest wall appearance and motion. Nontender with no deformity. No lesions are appreciated. Cardiovascular: Regular rate and rhythm with a normal S1 and S2. No gallops, murmurs, or rubs. Normal PMI, no JVD. No pulse deficits. Respiratory: Lungs have equal breath sounds bilaterally, clear to auscultation and percussion. No rales, rhonchi or wheezes noted. No increased work of breathing, no retractions or nasal flaring. Back: No spinal tenderness. No costovertebral tenderness. Full range of motion. Skin: Warm, dry with normal turgor. Normal color with no rashes, no lesions, and no evidence of cellulitis. MS/ Extremity: Pulses equal, no cyanosis. Neurovascular intact. Full, normal range of motion. Neuro: Awake and alert, GCS 15, oriented to person, place, time, and situation. Cranial nerves II-XII grossly intact. Motor strength 5/5 in all extremities. Sensory grossly intact. Cerebellar exam normal. Normal gait. Psych: Awake, alert, with orientation to person, place and time. Behavior, mood, and affect are within normal limits. 00:05 Constitutional: The patient appears in no acute distress, alert, awake, uncomfortable. 00:05 : CVA tenderness, is absent, Male external genitalia: normal. [facility] Vital Signs: 03/23 23:27 BP 111 / 72; Pulse 83; Resp 20 S; Temp 98.3(O); Pulse Ox 97% on R/A; Weight 95.25 kg as6 (R); Height 5 ft. 11 in. (180.34 cm) (R); Pain 10; 03/24 01:30 BP 118 / 75; Pulse 96; Resp 18 S; Pulse Ox 100% on R/A; as6 03:07 BP 117 / 66; Pulse 81; Resp 18 S; Pulse Ox 100% on R/A; as6 04:00 BP 108 / 66; Pulse 75; Resp 18 S; Pulse Ox 100% on R/A; as6 05:11 BP 123 / 73; Pulse 78; Resp 18 S; Pulse Ox 99% on R/A; as6 03/23 23:27 Body Mass Index 29.29 (95.25 kg, 180.34 cm) as6 MDM: 04:30 Differential diagnosis: nonspecific abdominal pain, UTI, urinary retention, mh7 prostatitis, urethritis. Data reviewed: vital signs, nurses notes, old medical records, lab test result(s), CBC, electrolytes, urinalysis, radiologic studies, CT scan. Data interpreted: Pulse oximetry: on room air is 100 %. Interpretation: normal. Counseling: I had a detailed discussion with the patient and/or guardian regarding: the historical points, exam findings, and any diagnostic results supporting the discharge/admit diagnosis, lab results, radiology results, the need for further work-up and treatment in the hospital. Response to treatment: the patient's symptoms have mildly improved after treatment. 04:33 Patient medically screened. [facility] 03/24 00:21 Order name: CBC with Diff; Complete Time: kd3 03/24 00:21 Order name: CMP; Complete Time: kd3 03/24 00:21 Order name: Lipase; Complete Time: : kd3 03/24 02:25 Order name: Urine Microscopic Only [facility] 03/24 02:25 Order name: Urine Culture [facility] 03/24 03:45 Order name: Urine Dipstick-Ancillary; Complete Time: 04:08 [facility] 03/24 04:45 Order name: Basic Metabolic Panel [facility] 03/24 04:45 Order name: Basic Metabolic Panel [facility] 03/24 04:45 Order name: CBC with Automated Diff [facility] 03/24 04:45 Order name: CBC with Automated Diff [facility] 03/24 04:53 Order name: Protime (+inr) [facility] 03/24 04:53 Order name: Ptt, Activated [facility] 03/24 05:03 Order name: COVID-19 SARS RT PCR (Document "Date of Onset" if Symptomatic) [facility] 03/24 06:03 Order name: Protime (+INR) [facility] 03/24 00:21 Order name: IV Saline Lock; Complete Time: 00:21 [facility] 03/24 00:21 Order name: Labs collected and sent; Complete Time: 00:21 [facility] 03/24 00:28 Order name: CT Abd/Pelvis - Without Contrast [facility] 03/24 00:28 Order name: US Scrotum Testicles [facility] 03/24 02:25 Order name: Urine Dipstick-Ancillary (obtain specimen); Complete Time: 03:54 [facility] 03/24 04:45 Order name: CONS Physician Consult [facility] 03/24 04:45 Order name: NPO [facility] 03/24 06:04 Order name: PTT, Activated Partial Thromb [facility] 03/24 07:25 Order name: SARS-COV-2 RT PCR [facility] 03/24 09:11 Order name: [facility] Administered Medications: 00:29 Drug: morphine 4 mg Route: IVP; Infused Over: 4 mins; Site: left antecubital; kd3 05:12 Follow up: Response: No adverse reaction as6 00:29 Drug: Zofran (Ondansetron) 4 mg Route: IVP; Site: left antecubital; kd3 05:12 Follow up: Response: No adverse reaction as6 00:35 Drug: NS 0.9% 500 ml Route: IV; Rate: bolus; Site: left hand; kd3 04:39 Follow up: IV Status: Completed infusion kd3 03:45 Drug: morphine 4 mg Route: IVP; Infused Over: 4 mins; Site: left hand; as6 05:11 Follow up: Response: No adverse reaction as6 03:45 Drug: Zofran (Ondansetron) 4 mg Route: IVP; Site: left hand; as6 05:11 Follow up: Response: No adverse reaction as6 04:39 Drug: Rocephin (cefTRIAXone) 1 grams Route: IV; Rate: per protocol; Site: left hand; kd3 04:39 Follow up: IV Status: Completed infusion kd3 Disposition Summary: 03/24/22 04:33 Hospitalization Ordered Hospitalization Status: Inpatient Admission 7 Provider: Danny Schultz Thierry Condition: Stable [facility] Problem: an acute exacerbation 7 Symptoms: have improved 7 Bed/Room Type: Standard [facility] Location: Telemetry/MedSurg (Inpatient)(03/24/22 12:57) dw Room Assignment: [facility](03/24/22 12:57) Diagnosis - Groin pain, Left mh7 - Pyelonephritis [facility] Forms: - Medication Reconciliation Form mh7 - SBAR form 7 Signatures: Dispatcher [employer] Yenifer Sanders RN RN dw Garcia, Cindy, RN RN cg Holmes, Maurice, MD MD [facility] Cole Norton RN RN as6 Marcela Argueta RN RN kd3 Corrections: (The following items were deleted from the chart) 04:54 04:33 Telemetry/MedSurg (Inpatient) 7 cg 04:54 04:33 mh7 cg 12:57 04:54 [facility] ER HOLD cg dw 12:57 04:54 ERHOLD- cg dw
[2022-03-24] MEDS ORDERED: CEFTRIAXONE 1000 MG/VIAL ONE (04:36)
[2022-03-24] MEDS ORDERED: ACETAMINOPHEN 325 MG TABLET PO PRN (04:38)
[2022-03-24] MEDS ORDERED: ONDANSETRON 4 MG/2 ML VIAL IV PRN (04:38)
[2022-03-24] MEDS: D5 0.45 NS 1,000 ML IV SCH ×2 (05:00→15:00)
[2022-03-24 06:03] LABS: Protime INR 0.96
[2022-03-24 06:57] VITALS: BMI 29.2
--- NOTE | 2022-03-24 09:09 | RAD REPORT ---
EXAM DESCRIPTION: USExtrem Venous W Compress Bil03/24/2022 9:01 am CLINICAL HISTORY: Leg pain COMPARISON: none FINDINGS: The common femoral, superficial femoral, popliteal and posterior tibial veins bilaterally are compressible and demonstrate augmentation. Doppler demonstrates good flow. Grayscale, color and spectral analysis performed on all vessels IMPRESSION: No evidence of deep venous thrombosis involving either lower extremity.
[2022-03-24] MEDS ORDERED: HYDROMORPHONE HCL 1 MG/ML INJ ONE (09:20)
[2022-03-24] MEDS ORDERED: D5 0.45 NS 1,000 ML IV ONE (09:20)
[2022-03-24] MEDS: HYDROMORPHONE HCL 1 MG/ML INJ IV PRN ×3 (09:22→20:55)
--- NOTE | 2022-03-24 12:34 | RAD REPORT ---
EXAM DESCRIPTION: CT - Abdomen Pelvis Wo Contrast - 03/24/2022 6:39 am CLINICAL HISTORY: 81 years Male LLQ abdominal pain COMPARISON: January 03, 2022 TECHNIQUE: Images were obtained in axial, sagittal, and coronal planes. No intravenous or oral contr ast was administered. This exam was performed according to our departmental dose-optimization program which includes use of Automated Exposure Control, adjustment of the mA and/or kV according to patient size and/or use of iterative reconstruction technique. FINDINGS: Multiple low-attenuation foci involving the liver consistent with hepatic cysts unchanged. Unremarkable spleen, pancreas, and adrenal glands bilaterally. Small hiatal hernia. Mildly distended gallbladder. No obstructing renal or ureteral calculi on right. No hydronephrosis on the right. Atrophic left kidn ey. Findings indicating prior surgery left pelvis. There is history of left ureteral attachment. Left ureteral stent present with proximal tip seen at pelvic ureteral junction and distal tip seen within the bladder. Previously noted left hydronephrosis has markedly decreased. Residual left hydroureter noted. Previously identified right bladder mass not well visualized on present study. Enlarged prosta te gland. Moderate left perinephric stranding. No definite adenopathy left pelvis in region of prior surgery. Appendix not well identified however no secondary signs for appendicitis. No bowel obstruction, perfo ration, or inflammation. Tortuosity thoracoabdominal aorta and abdominal aorta. No focal dilatation seen. No adenopathy or abn ormal fluid collections noted. No acute osseous abnormality. Airspace attenuation left lower lobe unchanged. Chronic changes lower lungs bilaterally again noted. IMPRESSION: Postsurgical changes left pelvis with history of prior left ureteral attachment. Left ur eteral stent again present. Previously noted left hydronephrosis markedly decreased. Residual left hy droureter. No associated adenopathy or mass seen. No obstructing calcification present bilaterally. P reviously described right bladder mass is not well visualized. Electronically signed by: Eula Aponte MD 03/24/2022 2:12 AM CDT Due to temporary technical issues with the PACS/Fluency reporting system, reports are being signed by the in house radiologists without review as a courtesy to insure prompt reporting. The interpreting radiologist is fully responsible for the content of the report.
--- NOTE | 2022-03-24 12:36 | RAD REPORT ---
EXAM DESCRIPTION: US - Scrotum Testicles - 03/24/2022 3:49 am CLINICAL HISTORY: PAIN TECHNIQUE: Real-time ultrasound of the scrotum with color Doppler and image documentation. COMPARISON: Abdomen pelvis CT dated 03/24/2022 FINDINGS: Right testicle: The right testis measures 3.8 x 2.3 x 1.6 cm. Dilated rete testes and 5 mm simple cyst. Homogeneous echotexture. No torsion. Left testicle: The left testis measures 3.4 x 2.1 x 2.4 cm. Dilated rete testes and 4 mm simple cys t. Homogeneous echotexture. No torsion. Epididymides: The right epididymis is unremarkable. The left epididymis is not visualized. Scrotum: Small bilateral hydroceles. IMPRESSION: Normal testicular flow bilaterally without sonographic evidence for torsion. Electronically signed by: Fred Love MD 03/24/2022 3:28 AM CDT Due to temporary technical issues with the PACS/Fluency reporting system, reports are being signed by the in house radiologists without review as a courtesy to insure prompt reporting. The interpreting radiologist is fully responsible for the content of the report.
[2022-03-24] MEDS ORDERED: PNEUMOCOCCAL VACCINE 0.5 ML IMVAC ONE (14:00)
[2022-03-24] MEDS: CEFTRIAXONE 1,000 MG in NA CHLORIDE 0.9% 50 ML IVPB SCH (18:09)
--- NOTE | 2022-03-24 21:20 | P.HP ---
Certification for Inpatient Patient admitted to: Observation With expected LOS: <2 Midnights Practitioner: I am a practitioner with admitting privileges, knowledge of patient current condition, hospital course, and medical plan of care. Services: Services provided to patient in accordance with Admission requirements found in Title 42 Section 412.3 of the Code of Federal Regulations Patient History Date of Service: 03/24/22 Reason for admission: L MEDIAL GROIN PAIN. History of Present Illness: MR. REBOLLEDO HAS SEVERE PAIN L SIDE MEDIAL GROIN FOR MONTHS. I SUSPECTED MALIGNANCY INTERNALLY AND HAVING REFERRED PAIN HERE. AFTER 3 UROLOGIST THIS DIAGNOSIS WAS CONFIRMED. DR. MENDEZ PERFORMED SURGERY AND I AM NOT SURE EXACTLY WHAT WAS DONE BUT PAIN CONTIUES AND HE REPORTS TO ER. HIS URINE SHOWS BLOOD AND WBC BUT THAT CAN BE FROM CANCER ITSELF. DR. MENDEZ HAS BEEN CONSULTED. Allergies No Known Allergies Allergy (Verified 03/09/22 10:40) Home medications list reviewed: Yes Home Medications: Carbidopa/Levodopa [Carbidopa-Levo ER 50-200 Tab] 1 tab PO BID 12/11/21 Hydralazine HCl 50 mg PO BID 12/11/21 Metoprolol Succinate 50 mg PO DAILY 12/11/21 predniSONE [Prednisone*] 20 mg PO DAILY 12/11/21 Codeine/APAP [Tylenol W/Codeine #3 tab] 1 tab PO Q4HR PRN 03/24/22 Gabapentin 100 mg PO TID* 03/24/22 - Past Medical/Surgical History Has patient received pneumonia vaccine in the past: No Diabetic: No -: afib -: arthritis -: colon cx -: HTN -: Brain tumor -: Colon Cancer with Chemotherapy -: POLYMYALGIA RHEUMATICA- STEROIDS -: Colon sx -: Hernia repair -: 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 moist/pink, EOMI, Sclerae nonicteric Neck: Supple, 2+ carotid pulse no bruit, No LAD, Without JVD or thyroid abnormality Respiratory: Clear to auscultation bilaterally, Normal air movement Cardiovascular: Regular rate/rhythm, Normal S1 S2 Gastrointestinal: Normal bowel sounds, No tenderness, Other (HIS PAIN IS AT THE BASE OF PENIS ON L SIDE. ) Musculoskeletal: No tenderness Integumentary: No rashes Neurological: Abnormal gait (HE HAS SHUFFLED GAIT FOR LONG TIME. HE HAS BEEN TO DR STALEY. ) Lymphatics: No axilla or inguinal lymphadenopathy - Studies Laboratory Data (last 24 hrs) 03/24/22 00:26: Sodium 142, Potassium 4.0, BUN 35 H, Creatinine 1.53 H, Glucose 87, Total Bilirubin 1.0, AST 17, ALT 13, Alkaline Phosphatase 31 L, Lipase 66 L 03/24/22 00:26: WBC 10.7, Hgb 12.1 L, Hct 36.1 L, Plt Count 195 Assessment and Plan - Problems (Diagnosis) (1) Bladder tumor Current Visit: No Status: Chronic Plan: DR MENDEZ ON CASE. CYTOLOGY SHOWED SUGGESTION OF CANCER. BIOSPY DID NOT CONFIRM BUT THE SPECIMEN MAY NOT BE PERFECT. (2) Groin pain, chronic, left Current Visit: No Status: Chronic Plan: I AM NOT SURE IF WE WILL BE ABLE TO RELIEVE HIM OF PAIN. HE WILL HAVE TO CONTINUE PAIN MANAGEMENT. - Advance Directives Does patient have a Living Will: No Does patient have a Durable POA for Healthcare: No
[2022-03-24] MEDS: HYDRALAZINE HCL 25 MG TABLET PO SCH (22:09)
[2022-03-24] MEDS: OXYBUTYNIN ER 5 MG TAB PO SCH (22:10)
[2022-03-24] MEDS: GABAPENTIN 100 MG CAP PO SCH (22:10)
[2022-03-25] MEDS: D5 0.45 NS 1,000 ML IV SCH ×3 (01:00→20:12)
[2022-03-25] MEDS: HYDROMORPHONE HCL 1 MG/ML INJ IV PRN (03:51)
[2022-03-25] MEDS: CEFTRIAXONE 1,000 MG in NA CHLORIDE 0.9% 50 ML IVPB SCH ×2 (04:41→16:27)
[2022-03-25 06:40] LABS: Potassium 4.3 mmol/L (3.5-5.1)
[2022-03-25 06:42] LABS: Absolute Lymphocytes (CBC) 1.3 K/uL (0.7-4.9); Hematocrit 38.5 % (39.6-49.0); MCV 94.6 fL (80-100); RBC Red Blood Cell Count 4.06 M/uL (4.33-5.43)
[2022-03-25] MEDS: HYDRALAZINE HCL 25 MG TABLET PO SCH ×2 (08:41→20:11)
[2022-03-25] MEDS: GABAPENTIN 100 MG CAP PO SCH ×3 (08:41→16:26)
[2022-03-25] MEDS: OXYBUTYNIN ER 5 MG TAB PO SCH (08:42)
[2022-03-25] MEDS: METOPROLOL XL 50 MG TAB PO SCH (08:42)
[2022-03-25] MEDS ORDERED: predniSONE 20 MG TAB PO SCH (09:00)
--- NOTE | 2022-03-25 11:08 | CON ---
Reason For Consultation: Left inguinal and penile pain. History Of Present Illness: Mr. 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 Because there was also obstruction at the reimplanted ureterovesical junction, dilation of that rose orifice w as performed and a stent was placed to keep it open to preserve options for subsequent management of his upper tract urothelial carcinoma, recognizing he also would benefit from adjuvant management of h is bladder cancer. The patient has also had chronic left inguinal pain of uncertain origin despite m ultiple prior CT scans being performed and efforts to treat it. Initially, signs of fungal infection of the intertriginous region on the left hemiscrotum and inner thigh was present potentially underly ing the pain, but this was treated using triamcinolone nystatin ointment and the rash resolved. He a lso underwent scrotal ultrasound evaluation previously revealing absence of signs of epididymal orchi tis, and clinically on exam, there was no sign of testicular pain to palpation. As a result, the pre sumption was there was obstruction to the reimplanted ureter, which may be causing referred pain. Un fortunately, despite relief of the obstruction using the left ureteral stent, his pain has not improv ed that exists within the left inguinal region. Now, he also is complaining of uncontrollable urge i ncontinence and a pain that radiates to the tip of the penis associated with that urge to void. CT scan without contrast of the abdomen and pelvis reviewed from 03/24/2022. Postsurgical changes wi thin the left pelvis given history of prior left ureteral reimplantation was observed. The left uret eral stent was present and in good position extending from the renal pelvis at the UPJ down and into the bladder where a coil was found. The hydronephrosis was significantly decreased within the left k idney. There was residual left distal ureteral thickening/change, likely consistent with the presenc e of the tumor there. There was no associated lymphadenopathy or extravesical masses seen. There we re no obstructing calcifications visualized bilaterally. The bladder mass had been resected and was no longer visualized on the CT scan. Scrotal ultrasound on 03/24/2022 revealed normal testes with arterial flow present without evidence o f specific abnormality. On 03/24/2022 white count 10.7, creatinine 1.53 with an EGFR of 45, normal LFTs. Duplex ultrasound of the lower extremities was negative for DVT. Assessment And Recommendations: Mr. Peralta is an 81-year-old gentleman with multiple medical comor bidities, well known to me, with urothelial carcinoma of the bladder as well as left reimplanted uret er urothelial carcinoma with reimplanted ureteral orifice stenosis previously causing obstruction, no w relieved, but with persistent left inguinal pain of uncertain origin and bladder spasm causing refe rred pain to the tip of the penis. Relative to his bladder spasm and discomfort, we know he has underlying obstruction due to BPH, which was observed cystoscopically. If he is able to void adequately and bladder scan postvoid residual a ssessment reveals less than 150 cc, it would be reasonable to initiate oxybutynin extended release 5 mg tablets to help with the bladder spasms. If, however, he is retaining more than 150 cc post void, I would not initiate the oxybutynin, and if in fact he is retaining greater than 300-350 cc, an 18-F rench coude tipped urethral Harley catheter should be inserted and placed to gravity drainage. He should continue on Flomax 0.4 mg daily to assist with the prostatic urethral obstruction as well. With regard to his referred inguinal pain, this is a chronic issue that we have been attempting to in vestigate and managed for some time. The pain was present prior to the placement of the stent when t here was obstruction and it persists even now once the obstruction has been relieved by the presence of the stent. It is not clear if the pain is referred due to the stent or if it is from some other p erhaps lumbar spinal stenosis. Either way, we are unable to remove the stent at this time because we need options for management of his upper tract urothelial carcinoma, if he is deemed a poor surgical candidate for nephroureterectomy. Because a nephroureterectomy would be required to be done open varun ryder given his multiple prior abdominal surgeries, colon resection, chemotherapy, and ureteral reimpl antation, this would be incredibly morbid given his age and chronic medical conditions. As such, we are awaiting Medical Oncologic consultation potentially following Radiation Oncology consultation to form a complete assessment as to his benefit of surgical therapy versus risks and to determine if he might benefit from intraureteral chemotherapy with Jelmyto solution to manage his upper tract disease as opposed to operative nephroureterectomy. The potential benefit to chemotherapy and radiation the rapashtyn will also be assessed on visit with Medical and Radiation Oncology. Once determination can be m derick as to how we would proceed there, we can certainly remove the stent, but it is unclear if this wi ll improve his pain. JULIANNA/MAVIS Voice ID: [id number] Report ID: [id number]
[2022-03-25] MEDS: CODEINE 30MG/APAP 300MG TAB PO PRN (16:26)
--- NOTE | 2022-03-25 21:23 | P.PN ---
Subjective Date of Service: 03/25/22 Chief Complaint: L MEDIAL GROIN PAIN. Subjective: Improving HE GOT DIALUDID IV AND HAD CONFUSION THIS AM. IT HAS BEEN STOPPED. Physical Examination - Vital Signs Temperature: 99.5 F Blood Pressure: 124/72 Pulse: 84 Respirations: 18 Pulse Ox (%): 98 - Physical Exam General: Oriented x3, Moderate distress HEENT: Atraumatic, PERRLA, EOMI Neck: Supple, JVD not distended Respiratory: Clear to auscultation bilaterally, Normal air movement Cardiovascular: Regular rate/rhythm, Normal S1 S2 Gastrointestinal: Normal bowel sounds, No tenderness Musculoskeletal: No tenderness Integumentary: No rashes Neurological: Normal speech, Normal tone, Normal affect Lymphatics: No axilla or inguinal lymphadenopathy - Studies Microbiology Data (last 24 hrs): 03/24/22 03:42 Clean Catch Urine Avenel Count - Final <10,000 CFU/ML. 03/24/22 03:42 Clean Catch Urine - Final MIXED JAYSON. Medications List Reviewed: Yes Assessment And Plan - Current Problems (Diagnosis) (1) Bladder tumor Current Visit: No Status: Chronic Plan: DR MENDEZ ON CASE. CYTOLOGY SHOWED SUGGESTION OF CANCER. BIOSPY DID NOT CONFIRM BUT THE SPECIMEN MAY NOT BE PERFECT. I TALKED TO DR. MENDEZ IN DETAIL. HE REMOVED URETERAL BLOCKING UROTHELIAL CANCER BUT THE PAIN CONTINUED. HE IS HERE WITH THE SAME PAIN HE HAS FOR A WHILE THAT IS MODERATE BUT HE WANTS IT GONE AND UNFORTUNATELY THERE IS NO CLEAR ANSWER. TWO OPTIONS ARE CHEMO OR EXPLORATORY SURGERY AND THAT CAN GIVE SERIOUS COMPLICATIONS HE IS A POOR SURGICAL CANDIDATE. I TALKED TO HIS AND SHE WILL TALK TO HIM. (2) Groin pain, chronic, left Current Visit: No Status: Chronic Plan: I AM NOT SURE IF WE WILL BE ABLE TO RELIEVE HIM OF PAIN. HE WILL HAVE TO CONTINUE PAIN MANAGEMENT.
[2022-03-26] MEDS: CODEINE 30MG/APAP 300MG TAB PO PRN (02:48)
[2022-03-26] MEDS: CEFTRIAXONE 1,000 MG in NA CHLORIDE 0.9% 50 ML IVPB SCH ×2 (05:04→16:06)
[2022-03-26] MEDS: D5 0.45 NS 1,000 ML IV SCH ×3 (06:47→20:42)
[2022-03-26] MEDS ORDERED: CARBIDOPA LEVO PO SCH (09:00)
[2022-03-26] MEDS: HYDRALAZINE HCL 25 MG TABLET PO SCH ×2 (10:00→20:44)
[2022-03-26] MEDS: GABAPENTIN 100 MG CAP PO SCH ×3 (10:00→16:06)
[2022-03-26] MEDS: predniSONE 10 MG TAB PO SCH (10:01)
[2022-03-26] MEDS: METOPROLOL XL 50 MG TAB PO SCH (10:01)
[2022-03-26] MEDS: OXYBUTYNIN ER 5 MG TAB PO SCH (10:01)
--- NOTE | 2022-03-26 10:08 | RAD REPORT ---
EXAM DESCRIPTION: MRI - Lumbar Spine Wo Con - 03/26/2022 9:38 am CLINICAL HISTORY: Pain COMPARISON: Abdomen Pelvis Wo Contrast dated 03/24/2022 TECHNIQUE: Sagittal T1-weighted, T2-weighted and T2-STIR weighted sequences were obtained. Axial T1 -weighted and heavily T2-weighted sequenceswere obtained through the lumbar disc levels. FINDINGS: Lumbar bodies are normal in height and alignment. No suspicious marrow signal. No paraspi nal masses. Minimal fatty marrow degenerative changes seen. Small hemangioma present in the left late ral margin L3. Conus is normal with no clumping or thickening of the cauda equina. T12-L1 level: No significant findings. L1-2 level: No significant disc finding. Facet joint degenerative changes are present. Disc is desicc ated. L2-3 level: Disc is desiccated. No significant disc finding. No canal or foramen stenosis. Prominent facet degenerative changes present with mild ligamentous thickening. L3-4 level: Disc is desiccated. Bilateral foraminal disc bulge changes are present with mild stenosis . No central spinal stenosis. Advanced facet joint degenerative changes are present. Ligamentous thic kening is seen. L4-5 level: Disc is thinned and desiccated. Circumferential bulging of disc material seen across the central canal and into each exit foramen. Advanced facet joint degenerative change present. Canal is borderline stenotic. Moderate bilateral foraminal stenosis is present. Only a small amount of perineu ral fat is still present. L5-S1 level: Disc is desiccated. No herniation or significant disc bulge. No central spinal stenosis. No left foraminal stenosis. Patient has advanced degenerative change of the right facet joint. Mild right foraminal stenosis present. IMPRESSION: Multilevel lumbar spondylosis changes are present detailed at each level in the body of the report. Multilevel foraminal stenosis results from the degenerative change. No significant central canal sten osis. No acute or pathologic bone change.
[2022-03-26] MEDS: HYDROCORTISONE 2.5% RECT CR PR SCH ×2 (12:21→20:43)
--- NOTE | 2022-03-26 16:09 | P.PN ---
Subjective Date of Service: 03/26/22 Chief Complaint: L MEDIAL GROIN PAIN. Subjective: No new changes HE GOT DIALUDID IV AND HAD CONFUSION THIS AM. IT HAS BEEN STOPPED. HE IS STILL HALLUCINATING AFTER TYLENOL 3. HE IS NOT READY GO HOME YET. COMPLAINS OF L LEG PAIN THAT IS SEVERE. MRI LS SPINE SHOWS ARTHRITIS BUT NOT SURGICAL. I WILL STOP CODEINE HE ALSO GETS HALLUCINATIONS. Physical Examination - Vital Signs Temperature: 97.4 F Blood Pressure: 123/72 Pulse: 85 Respirations: 16 Pulse Ox (%): 97 - Physical Exam General: Oriented x3, Mild distress, Moderate distress HEENT: Atraumatic, PERRLA, EOMI Neck: Supple, JVD not distended Respiratory: Clear to auscultation bilaterally, Normal air movement Cardiovascular: Regular rate/rhythm, Normal S1 S2 Gastrointestinal: Normal bowel sounds, No tenderness Musculoskeletal: No tenderness Integumentary: No rashes Neurological: Normal speech, Normal tone, Normal affect Lymphatics: No axilla or inguinal lymphadenopathy - Studies Medications List Reviewed: Yes Assessment And Plan - Current Problems (Diagnosis) (1) Bladder tumor Current Visit: No Status: Chronic Plan: DR MENDEZ ON CASE. CYTOLOGY SHOWED SUGGESTION OF CANCER. BIOSPY DID NOT CONFIRM BUT THE SPECIMEN MAY NOT BE PERFECT. I TALKED TO DR. MENDEZ IN DETAIL. HE REMOVED URETERAL BLOCKING UROTHELIAL CANCER BUT THE PAIN CONTINUED. HE IS HERE WITH THE SAME PAIN HE HAS FOR A WHILE THAT IS MODERATE BUT HE WANTS IT GONE AND UNFORTUNATELY THERE IS NO CLEAR ANSWER. TWO OPTIONS ARE CHEMO OR EXPLORATORY SURGERY AND THAT CAN GIVE SERIOUS COMPLICATIONS HE IS A POOR SURGICAL CANDIDATE. I TALKED TO HIS AND SHE WILL TALK TO HIM. (2) Groin pain, chronic, left Current Visit: No Status: Chronic Plan: I AM NOT SURE IF WE WILL BE ABLE TO RELIEVE HIM OF PAIN. HE WILL HAVE TO CONTINUE PAIN MANAGEMENT. HE COULD GO HOME IF HE GETS WALKING AGAIN AND HAS NO HALLUCINATIONS.
--- NOTE | 2022-03-26 17:25 | RAD REPORT ---
EXAM DESCRIPTION: US - Lower Extremity Arterial Bilat - 03/26/2022 5:15 pm CLINICAL HISTORY: Leg pain COMPARISON: None FINDINGS: The right common femoral, superficial femoral, popliteal and posterior tibial arterial waveforms trip hasic. Right dorsalis pedis arterial waveform biphasic Left common femoral arterial waveform biphasic. Left superficial femoral and left popliteal arterial waveform is triphasic. Left posterior tibial arterial waveform biphasic Left dorsalis pedis arterial waveform is monophasic Grayscale, color and spectral analysis performed on all vessels IMPRESSION: Mild bilateral lower extremity arterial disease
[2022-03-26] MEDS: CARBIDOPA LEVO PO SCH (20:44)
[2022-03-27] MEDS: CEFTRIAXONE 1,000 MG in NA CHLORIDE 0.9% 50 ML IVPB SCH ×2 (04:33→16:51)
[2022-03-27] MEDS: HYDROCORTISONE 2.5% RECT CR PR SCH ×2 (09:00→21:35)
[2022-03-27] MEDS: CARBIDOPA LEVO PO SCH ×2 (09:10→21:34)
[2022-03-27] MEDS: OXYBUTYNIN ER 5 MG TAB PO SCH (09:10)
[2022-03-27] MEDS: METOPROLOL XL 50 MG TAB PO SCH (09:11)
[2022-03-27] MEDS: GABAPENTIN 100 MG CAP PO SCH (09:11)
[2022-03-27] MEDS: predniSONE 10 MG TAB PO SCH (09:11)
[2022-03-27] MEDS: HYDRALAZINE HCL 25 MG TABLET PO SCH ×2 (09:11→21:34)
[2022-03-27] MEDS: METRONIDAZOLE 500mg IVPB 500 MG/100 ML BAG IV SCH ×2 (12:15→16:51)
--- NOTE | 2022-03-27 14:08 | CON ---
Date of Consultation: 03/27/2022 Reason For Service: Perianal tenderness, hemorrhoids. History Of Present Illness: This is the of an 81-year-old patient with multiple medical problems inc luding carcinoma, here also for pelvic pain and inguinal pain, found to have also perianal tenderness , and a surgical consult was obtained. The patient was using a cream for his hemorrhoids, but it is c d still operator. He has hemorrhoidectomy done in the past, but not recently. Past medical history incl udes bladder cancers with surgeries include reimplanted uterovesical structure, subsequently dilatati on of the orifice. The patient has upper tract urothelial carcinoma, chronic left inguinal pain. Allergies: NONE. Medications: Include carbidopa, hydralazine, metoprolol, prednisone, codeine, gabapentin. Past Medical History: Includes AFib, arthritis, hypertension, brain tumor, colon cancer with history of chemotherapy and also urological cancer as described above. Social History: One to clarify that he was advised in the past to stop smoking, but he is still smok ing currently. He has alcohol occasionally. Family History: Brain tumor. Review of Systems: No shortness of breath. No chest pain. No fever. No melena. No hematochezia. Mild perianal pain. Physical Examination: HEENT: Pupils are equal, reactive. Anicteric. Neck: Supple. Chest: Clear. Abdomen: Soft and depressible. Extremities: Good capillary refill. Genitourinary: Perianal area shows small hemorrhoid present. No prolapse. No perianal abscess that we can see at this moment. No drainage. No fistulas. No ulcer seen obviously at bedside examinati on. No prolapsed hemorrhoid neither. We cannot see any fissure at this moment. Plan: The patient is using hemorrhoidal steroid creams. When this area gets better, he should be in my office and then discontinue. We might have to re-evaluate this under anesthesia, anoscopy, and p roctoscopy to see how the hemorrhoids are doing. At this moment, I did not see any prolapse or any b leeding coming from that area. If we have the steroid suppositories, we may consider those too, alth ough I have to discuss that with the pharmacy. I am not sure if they are available here in the [facility]. Avoid constipation. PER/MODL Voice ID: [id number] Report ID: [id number]
--- NOTE | 2022-03-27 15:31 | P.PN ---
Subjective Date of Service: 03/27/22 Chief Complaint: L MEDIAL GROIN PAIN. Subjective: No new changes HE GOT DIALUDID IV AND HAD CONFUSION THIS AM. IT HAS BEEN STOPPED. HE IS STILL HALLUCINATING AFTER TYLENOL 3. HE IS NOT READY GO HOME YET. COMPLAINS OF L LEG PAIN THAT IS SEVERE. MRI LS SPINE SHOWS ARTHRITIS BUT NOT SURGICAL. I WILL STOP CODEINE HE ALSO GETS HALLUCINATIONS. HIS PAIN IS THE SAME IN GROIN. ABDOMEN PAIN OFF AND ON. LEG PAIN IS BETTER. Physical Examination - Vital Signs Temperature: 98 F Blood Pressure: 161/82 Pulse: 103 Respirations: 20 Pulse Ox (%): 99 - Physical Exam HEENT: Atraumatic, PERRLA, EOMI Neck: Supple, JVD not distended Respiratory: Clear to auscultation bilaterally, Normal air movement Cardiovascular: Regular rate/rhythm, Normal S1 S2 Gastrointestinal: Normal bowel sounds, No tenderness Musculoskeletal: No tenderness Integumentary: No rashes Neurological: Normal speech, Normal tone, Normal affect Lymphatics: No axilla or inguinal lymphadenopathy - Studies Medications List Reviewed: Yes Assessment And Plan - Current Problems (Diagnosis) (1) Bladder tumor Current Visit: No Status: Chronic Plan: DR MENDEZ ON CASE. CYTOLOGY SHOWED SUGGESTION OF CANCER. BIOSPY DID NOT CONFIRM BUT THE SPECIMEN MAY NOT BE PERFECT. I TALKED TO DR. MENDEZ IN DETAIL. HE REMOVED URETERAL BLOCKING UROTHELIAL CANCER BUT THE PAIN CONTINUED. HE IS HERE WITH THE SAME PAIN HE HAS FOR A WHILE THAT IS MODERATE BUT HE WANTS IT GONE AND UNFORTUNATELY THERE IS NO CLEAR ANSWER. TWO OPTIONS ARE CHEMO OR EXPLORATORY SURGERY AND THAT CAN GIVE SERIOUS COMPLICATIONS HE IS A POOR SURGICAL CANDIDATE. I TALKED TO HIS AND SHE WILL TALK TO HIM. (2) Groin pain, chronic, left Current Visit: No Status: Chronic Plan: I AM NOT SURE IF WE WILL BE ABLE TO RELIEVE HIM OF PAIN. HE WILL HAVE TO CONTINUE PAIN MANAGEMENT. HE COULD GO HOME IF HE GETS WALKING AGAIN AND HAS NO HALLUCINATIONS. (3) Hallucination Current Visit: Yes Status: Acute Plan: FROM NARCOTICS. WE STOPPED ALL. ALSO I STOPPED GABAPENTIN HE STILL COMPLAINS OF IT. TALKED TO AND SHE IS AWARE. (4) Pain in the abdomen Current Visit: Yes Status: Acute Plan: HE IS NOT SURE BUT ON PALPATION HE COMPLAINTS OF SOME PAIN. CT ANGIOGRAM JUST TO MAKE SURE. HE IS NOT CLEAR IN HIS HISTORY.
[2022-03-27] MEDS ORDERED: ENOXAPARIN 30 MG/0.3 ML SQ SCH (17:00)
[2022-03-27] MEDS: D5 0.45 NS 1,000 ML IV SCH ×2 (17:55→21:37)
--- NOTE | 2022-03-27 19:31 | RAD REPORT ---
EXAM DESCRIPTION: US - Urinary Bladder - 03/27/2022 6:33 pm FINDINGS: Small amount of echogenic debris is seen layering in the dependent portion of the bladder. No bladder wall thickening or mass identified. Prevoid volume was 1177 mL. After 2 attempts, the postvoid volume was 1097 mL.
[2022-03-27] MEDS: TAMSULOSIN 0.4 MG SR CAP PO SCH (21:34)
[2022-03-28] MEDS: METRONIDAZOLE 500mg IVPB 500 MG/100 ML BAG IV SCH ×2 (00:24→09:14)
[2022-03-28] MEDS: CEFTRIAXONE 1,000 MG in NA CHLORIDE 0.9% 50 ML IVPB SCH ×2 (05:45→16:59)
[2022-03-28] MEDS: D5 0.45 NS 1,000 ML IV SCH ×2 (07:57→14:47)
[2022-03-28 08:44] LABS: Potassium 3.7 mmol/L (3.5-5.1)
[2022-03-28 08:56] LABS: Absolute Lymphocytes (CBC) 1.2 K/uL (0.7-4.9); Hematocrit 46.6 % (39.6-49.0); Lymphocytes % 14.5 % (15.3-44.8); MCV 96.5 fL (80-100); MPV 8.8 fL (7.6-11.3); RBC Red Blood Cell Count 4.82 M/uL (4.33-5.43)
[2022-03-28] MEDS: METOPROLOL XL 50 MG TAB PO SCH (09:00)
[2022-03-28] MEDS: HYDRALAZINE HCL 25 MG TABLET PO SCH ×2 (09:00→20:18)
[2022-03-28] MEDS: CARBIDOPA LEVO PO SCH ×2 (09:14→20:24)
[2022-03-28] MEDS: predniSONE 10 MG TAB PO SCH (09:14)
[2022-03-28] MEDS: HYDROCORTISONE 2.5% RECT CR PR SCH ×2 (09:15→20:25)
--- NOTE | 2022-03-28 12:02 | P.PN ---
Subjective Date of Service: 03/28/22 Chief Complaint: PAIN IS ALL GONE AFTER ZARAGOZA Subjective: Improving HE GOT DIALUDID IV AND HAD CONFUSION THIS AM. IT HAS BEEN STOPPED. HE IS STILL HALLUCINATING AFTER TYLENOL 3. HE IS NOT READY GO HOME YET. COMPLAINS OF L LEG PAIN THAT IS SEVERE. MRI LS SPINE SHOWS ARTHRITIS BUT NOT SURGICAL. I WILL STOP CODEINE HE ALSO GETS HALLUCINATIONS. HIS PAIN IS THE SAME IN GROIN. ABDOMEN PAIN OFF AND ON. LEG PAIN IS BETTER. HE IS MEDICALLY STABLE AFTER ZARAGOZA. HE WILL AMBULATE TODAY. HE USUALLY SHUFFLES AND THAT HAS BEEN FULLY CHECKED BY MANY NEUROLOGISTS. Physical Examination - Vital Signs Temperature: 98.3 F Blood Pressure: 101/53 Pulse: 83 Respirations: 16 Pulse Ox (%): 100 - Physical Exam General: Alert, In no apparent distress, Other (ZARAGOZA IN PLACE, DRAINED 1 LT RETAINED URINE.) HEENT: Atraumatic, PERRLA, EOMI Neck: Supple, JVD not distended Respiratory: Clear to auscultation bilaterally, Normal air movement Cardiovascular: Regular rate/rhythm, Normal S1 S2 Gastrointestinal: Normal bowel sounds, No tenderness Musculoskeletal: No tenderness Integumentary: No rashes Neurological: Normal speech, Normal tone, Normal affect Lymphatics: No axilla or inguinal lymphadenopathy - Studies Medications List Reviewed: Yes Assessment And Plan - Current Problems (Diagnosis) (1) Bladder tumor Current Visit: No Status: Chronic Plan: DR MENDEZ ON CASE. CYTOLOGY SHOWED SUGGESTION OF CANCER. BIOSPY DID NOT CONFIRM BUT THE SPECIMEN MAY NOT BE PERFECT. I TALKED TO DR. MENDEZ IN DETAIL. HE REMOVED URETERAL BLOCKING UROTHELIAL CANCER BUT THE PAIN CONTINUED. HE IS HERE WITH THE SAME PAIN HE HAS FOR A WHILE THAT IS MODERATE BUT HE WANTS IT GONE AND UNFORTUNATELY THERE IS NO CLEAR ANSWER. TWO OPTIONS ARE CHEMO OR EXPLORATORY SURGERY AND THAT CAN GIVE SERIOUS COMPLICATIONS HE IS A POOR SURGICAL CANDIDATE. I TALKED TO HIS AND SHE WILL TALK TO HIM. (2) Groin pain, chronic, left Current Visit: No Status: Chronic Plan: I AM NOT SURE IF WE WILL BE ABLE TO RELIEVE HIM OF PAIN. HE WILL HAVE TO CONTINUE PAIN MANAGEMENT. HE COULD GO HOME IF HE GETS WALKING AGAIN AND HAS NO HALLUCINATIONS. HE IS IN NO PAIN AFTER ZARAGOZA. HE WAS RETAINING URINE PER SONOGRAM AND PVR ABOUT 1 LT. I TALKED TO HIM AND HE DOES NOT WANT TO GO HOME WITH ZARAGOZA. I EXPLAINED TO HIM, DAUGHTER AND THAT WE CAN'T KEEP PATIENTS HERE PER THEIR WISH. IF MEDICALLY STABLE PATIENTS NEED TO GO HOME AND THEY CAN HIRE HELP WITH [facility] IF IS NOT ABLE TO TAKE CARE OF HIM. THEY UNDERSTAND AND NEED ONE MORE DAY TO DECIDE. (3) Hallucination Current Visit: Yes Status: Acute Plan: FROM NARCOTICS. WE STOPPED ALL. ALSO I STOPPED GABAPENTIN HE STILL COMPLAINS OF IT. TALKED TO AND SHE IS AWARE. (4) Pain in the abdomen Current Visit: Yes Status: Acute Plan: HE IS NOT SURE BUT ON PALPATION HE COMPLAINTS OF SOME PAIN. CT ANGIOGRAM JUST TO MAKE SURE. HE IS NOT CLEAR IN HIS HISTORY. (5) Urinary retention Current Visit: Yes Status: Acute Plan: ABOVE. ZARAGOZA HELPED RELIEVE ALL PAIN. HE IS STABLE TO GO HOME. MEDICALLY. NOW THERE ARE SOCIAL ISSUES. THERE IS NO CORPORATE STRATEGY ASSOCIATE AVAILABLE ON TUESDAY. HE WILL HAVE TO STAY FAMILY IS FRAIL AND KIDS DON'T LIVE HERE TO HELP.
[2022-03-28] MEDS ORDERED: ENOXAPARIN 40 MG/0.4 ML SQ SCH (17:00)
[2022-03-28] MEDS: TAMSULOSIN 0.4 MG SR CAP PO SCH (20:17)
[2022-03-29] MEDS ORDERED: CEFTRIAXONE 1000 MG/VIAL ONE (02:50)
[2022-03-29] MEDS: CEFTRIAXONE 1,000 MG in NA CHLORIDE 0.9% 50 ML IVPB SCH (05:00)
[2022-03-29 09:30] VITALS: O2SAT 100
[2022-03-29] MEDS: HYDRALAZINE HCL 25 MG TABLET PO SCH (10:38)
[2022-03-29] MEDS: CARBIDOPA LEVO PO SCH (10:39)
[2022-03-29] MEDS: METOPROLOL XL 50 MG TAB PO SCH (10:39)
[2022-03-29] MEDS: HYDROCORTISONE 2.5% RECT CR PR SCH (10:40)
[2022-03-29] MEDS: predniSONE 10 MG TAB PO SCH (10:43)
[2022-03-29 12:13] VITALS: BP 96/52; TEMP 98.2
--- NOTE | 2022-03-29 15:09 | P.DS ---
Admission Date: 03/24/22 Discharge Date: 03/29/22 Disposition: [facility] HOME/HOME HEALTH CARE Discharge Condition: FAIR Reason for Admission: PAIN IS ALL GONE AFTER NICOLE - Problems (1) Hallucination Current Visit: Yes Status: Acute (2) Pain in the abdomen Current Visit: Yes Status: Acute (3) Urinary retention Current Visit: Yes Status: Acute (4) Urothelial carcinoma of left distal ureter Current Visit: No Status: Acute (5) Bladder tumor Current Visit: No Status: Chronic Brief History of Present Illness: 81-year-old patient with a history of colon cancer, brain tumor, recently underwent urologic procedure and noted to have Left distal ureteral filling defect, noninvasive urothelial carcinoma of the bladder, left distal reimplanted ureteral tumor, left reimplanted ureteral orifice stenosis, presented to the emergency department with a complaint of left groin pain. His urinalysis showed blood and elevated WBC. There was a concern for UTI. Patient was hospitalized for further management. Hospital Course: Patient admitted to the medical floor and started on IV antibiotics for possible UTI. Urine culture showed mixed growth. Patient completed 6 days of IV antibiotic. He complains of persistent pain, later noted to have acute urinary retention. Nicole catheter was inserted and about 1 L drained. Patient's pain was initially managed with Dilaudid but she developed hallucination and it was discontinued. Nicole catheter is maintained, patient started on Flomax. Patient symptoms have improved. He is awake and alert, vitals are stable. He is deemed stable for discharge. He is discharged with home health for therapy and nursing. Vital Signs/Physical Exam: Temp Pulse Resp BP Pulse Ox 98.2 F 85 16 96/52 L 99 03/29/22 12:00 03/29/22 12:00 03/29/22 12:00 03/29/22 12:00 03/29/22 12:00 General: Alert, In no apparent distress, Oriented x3 HEENT: Mucous membr. moist/pink Neck: JVD not distended Respiratory: Clear to auscultation bilaterally, Normal air movement Cardiovascular: No edema, Regular rate/rhythm, Normal S1 S2 Gastrointestinal: Soft and benign, Non-distended, No tenderness Musculoskeletal: No swelling Integumentary: No rashes Laboratory Data at Discharge: WBC 8.2 K/uL (4.3-10.9) D 03/28/22 08:16 Hgb 14.9 g/dL (13.6-17.9) 03/28/22 08:16 Hct 46.6 % (39.6-49.0) D 03/28/22 08:16 Plt Count 124 K/uL (152-406) L D 03/28/22 08:16 PT 10.5 SECONDS (9.5-12.5) 03/24/22 05:42 INR 0.96 03/24/22 05:42 APTT 27.2 SECONDS (24.3-36.9) 03/24/22 05:42 Sodium 144 mmol/L (136-145) 03/28/22 08:16 Potassium 3.7 mmol/L (3.5-5.1) 03/28/22 08:16 BUN 23 mg/dL (7-18) H 03/28/22 08:16 Creatinine 1.43 mg/dL (0.55-1.3) H 03/28/22 08:16 Glucose 95 mg/dL (74-106) 03/28/22 08:16 Total Bilirubin 1.0 mg/dL (0.2-1.0) 03/24/22 00:26 AST 17 U/L (15-37) 03/24/22 00:26 ALT 13 U/L (12-78) 03/24/22 00:26 Alkaline Phosphatase 31 U/L (45-117) L 03/24/22 00:26 Lipase 66 U/L (73-393) L 03/24/22 00:26 Home Medications: Carbidopa/Levodopa [Carbidopa-Levo ER 50-200 Tab] 1 tab PO BID 12/11/21 Hydralazine HCl 50 mg PO BID 12/11/21 Metoprolol Succinate 50 mg PO DAILY 12/11/21 Codeine/APAP [Tylenol #3*] 1 tab PO Q4HR PRN 03/24/22 Gabapentin 100 mg PO TID* 03/24/22 Oxybutynin Chloride [Ditropan Xl] 5 mg PO DAILY #12 tab.sa 03/29/22 Tamsulosin [Flomax*] 0.4 mg PO BEDTIME #90 cap 03/29/22 predniSONE [Deltasone*] 10 mg PO DAILY tab 03/29/22 New Medications: Oxybutynin Chloride [Ditropan Xl] 5 mg PO DAILY #12 tab.sa Tamsulosin [Flomax*] 0.4 mg PO BEDTIME #90 cap Physician Discharge Instructions: Keep nicole catheter. Diet: AHA Activity: Fall precautions Followup: Robin Gomez [ACTIVE - CAN ADMIT] - (Dr. Gomez informed of your condition and hospitalization. Please call office for appointment.) Time spent managing pt's care (in minutes): 36
== END 2022-03-29 16:35 | disposition home health service (06) | DRG 392 ==
LOC: ER 23:26 → ERHOLD 03-24 04:45 → 2ND 03-24 13:59
PROVIDERS: ADMIT Internal Medicine; ATTEND Internal Medicine
DX: R10.32 Left lower quadrant pain (principal); C79.19 Secondary malignant neoplasm of other urinary organs; N13.8 Other obstructive and reflux uropathy; R44.3 Hallucinations, unspecified; N39.0 Urinary tract infection, site not specified; R33.8 Other retention of urine; I48.91 Unspecified atrial fibrillation; I10 Essential (primary) hypertension; M35.3 Polymyalgia rheumatica; N40.1 Benign prostatic hyperplasia with lower urinary tract symptoms; N32.89 Other specified disorders of bladder; T40.2X5A Adverse effect of other opioids, initial encounter; Y92.230 Patient room in hospital as the place of occurrence of the external cause; Z85.038 Personal history of other malignant neoplasm of large intestine; F17.210 Nicotine dependence, cigarettes, uncomplicated; Z94.7 Corneal transplant status; C67.9 Malignant neoplasm of bladder, unspecified; K64.9 Unspecified hemorrhoids; M47.897 Other spondylosis, lumbosacral region; Z20.822 Contact with and (suspected) exposure to COVID-19
CPT/HCPCS: 36415; 72148; 74176; 76857; 76870; 80048; 80053; 81003; 81015; 83690; 85025; 85610; 85730; 87086; 87088; 93925; 93970; 94760; 97116; 97161; 99285; J1170; J1650; J2405; J7040; J7512; J7799; U0003

== ENCOUNTER 2022-05-18 08:44 | Observation (INO) | payer OTHER ==
[2022-05-13 15:33] LABS: Absolute Lymphocytes (CBC) 0.8 K/uL (0.7-4.9); Hematocrit 36.9 % (39.6-49.0); Lymphocytes % 8.6 % (15.3-44.8); MCV 93.3 fL (80-100); MPV 7.5 fL (7.6-11.3); RBC Red Blood Cell Count 3.95 M/uL (4.33-5.43)
[2022-05-13 16:03] LABS: SARS-CoV-2 Antigen Rapid Res Negative (Negative)
--- NOTE | 2022-05-14 07:20 | EKG ---
Test Date: 2022-05-13 Test Time: 15:01:56 Immigration Manager: [place] MEASUREMENT RESULTS: Intervals: Rate: 104 SC: QRSD: 104 QT: 322 QTc: 423 [place]: P: SC: QRS: -43 T: 29 INTERPRETIVE STATEMENTS: Atrial fibrillation with rapid ventricular response Left axis deviation Inferior infarct, age undetermined Possible Anterior infarct, age undetermined Abnormal ECG Compared to ECG 12/11/2021 14:47:02 Left-axis deviation now present Myocardial infarct finding now present Left anterior fascicular block no longer present Electronically Signed On 05-14-22 07:18:33 CDT by Bassam Madrid
[~2022-05-18 08:44] MED LIST: AMPICILLIN SODIUM 2 GM in NA CHLORIDE 0.9% 100 ML IVPB ONE; Gentamicin Inj 160 MG in NA CHLORIDE 0.9% 100 ML IV SCH
[2022-05-18] MEDS ORDERED: Ringers Lactate 1,000 ML IV ONE ×2 (09:03→14:15)
[2022-05-18] MEDS ORDERED: FENTANYL CITR 100 MCG/2 ML ONE ×3 (09:39→12:13)
[2022-05-18] MEDS ORDERED: propofoL 200 MG/20 ML VIAL IV ONE (09:40)
[2022-05-18] MEDS ORDERED: LIDOCAINE 1% MPF 5 ML VIAL ONE (09:40)
[2022-05-18] MEDS ORDERED: NS 0.9% VIAL 0 ML ONE (10:01)
[2022-05-18] MEDS ORDERED: EPHEDRINE SULF 50 MG/ML VIAL ONE ×2 (10:01→12:02)
[2022-05-18] MEDS ORDERED: ROCURONIUM 50 MG/5 ML VIAL IV ONE ×2 (10:03→12:10)
[2022-05-18] MEDS ORDERED: NS 0.9% VIAL 10 ML ONE (12:02)
[2022-05-18] MEDS ORDERED: OPIUM/BELLADONNA SUPPOS (30-16.2 MG) PR ONE (13:24)
[2022-05-18] MEDS ORDERED: GLYCOPYRROLATE 0.2 MG/ML SYR ONE (13:26)
[2022-05-18] MEDS ORDERED: NEOSTIGMINE 1 MG/ML -10 ML VIAL ONE (13:26)
--- NOTE | 2022-05-18 15:16 | RAD REPORT ---
EXAM DESCRIPTION: RAD - Urography Nephrostogram - 05/18/2022 2:04 pm CLINICAL HISTORY: OPERATIVE ANTEGRADE URETEROSCOPY COMPARISON: Abdomen Pelvis Wo Contrast dated 03/24/2022 FINDINGS/IMPRESSION: Sixty-five intraoperative fluoroscopic series were submitted showing showing gu idewire placement into a left nephrostomy tube and subsequent exchange. Partially imaged left uretera l stent. Fluoro time: 4.2 minutes Chemo dose: 164 mGy
--- NOTE | 2022-05-18 15:52 | OP ---
Surgeon: MILAD MENDEZ Preoperative Diagnoses: 1. Urothelial carcinoma of the bladder. 2. Left reimplanted ureterovesical junction stricture. 3. Left distal ureter filling defect consistent with urothelial carcinoma. Postoperative Diagnoses: 1. Urothelial carcinoma of the bladder. 2. Left reimplanted ureterovesical junction stricture. 3. Left distal ureter filling defect consistent with urothelial carcinoma. Principle Procedures: 1. Cystoscopy. 2. Transurethral resection of bladder tumors, 4 tumors between 2 and 5 cm in combined diameter. 3. Left antegrade access for ureteroscopy. 4. Antegrade instillation of gemcitabine 2 g intrarenal chemotherapy. 5. Antegrade pyelography. Indication For Procedure: Mr. Peralta is an 81-year-old gentleman, who presented to the Urology Clinic with bladder cancer and left upper tract filling defect visually consistent with urothelial carcinoma and cytology suspicious for such. Because of the difficulty accessing his reimplanted left ureter retrograde, and for ease of administration of chemotherapy antegrade, the patient had a nephrostomy tube placed and presents for definitive repeat biopsy of the lesions in the distal ureter as well as initiation of treatment with intrarenal gemcitabine along with intravesical gemcitabine chemotherapy. Procedure In Detail: The patient was consented in the preoperative holding area before being transferred to operative suite where general anesthesia was induced. He was given ampicillin and gentamicin 2-3 mg/kg IV antimicrobial prophylaxis and pneumo boots were provided for DVT prophylaxis. He was placed in the lithotomy position initially, padded and secured to the table appropriately. His genitalia were prepped using Hibiclens and he was draped in standard fashion. The case was begun using urethral sounds to dilate the meatus and fossa navicularis to 30-Macedonian. I then utilized the resectoscope and a 26- Macedonian sheath with a visual obturator to traverse the urethra and into the bladder with ease. The bladder was surveyed in its entirety, and within the posterior wall of the bladder, there were 3 bladder tumors noted with an additional tumor noted within the dome posteriorly. These tumors were resected using the loop in normal saline and the samples were sent for pathologic analysis. I then surveyed the remainder of the bladder, and within the bladder neck and into the prostatic urethra where prior prostatic urethral biopsies/TUR had been performed, and there were additional papillary mucosal changes that region. This was all resected as well and sent for pathologic analysis. The base of each of the tumor resection sites was fulgurated and once hemostatic, and once confirmed that all prostate chips and bladder tumor pieces had been removed from within the bladder, I then removed the resectoscope and placed a 20-Macedonian urethral Harley catheter into his bladder with ease with 30 cc of sterile water in the balloon. The patient was then taken out of the lithotomy position and transferred to a stretcher. He was then transferred to another operating room where he was placed in the prone position, padded and secured to the table appropriately using a prone pillow and additional foam padding where necessary to achieve adequate stabilization of his very tight infused joints, and once in good position, I then prepped the left nephrostomy tube as well as the skin site before draping it in standard fashion. The case was then begun in an antegrade fashion by cutting the nephrostomy tube and passing a Sensor wire via the loop to successfully into the renal pelvis as observed fluoroscopically. Over the wire, I passed a 5-Macedonian ureteral access catheter and performed an antegrade pyelogram. Contrast did fill each of the calyces of the kidney as well as the renal pelvis with ease, and there were no filling defects noted throughout. As a result, I attempted to pass the wire down and into the proximal ureter where the stent was present and coiled just beneath the UPJ. Unfortunately, the wire would not pass beyond the coil of the stent despite multiple attempts. So, I left the Sensor wire in place as a safety wire and passed a dual-lumen catheter into the renal pelvis under fluoroscopic guidance before passing a Bentson guidewire over the dual-lumen catheter into the renal pelvis. The Bentson guidewire did coil within the pelvis again failing to go down the proximal ureter as desired alongside the stent. As a result, I removed the dual-lumen catheter and passed the ureteral balloon dilator to dilate the tract to 15-Macedonian into the calyx. This was actually done prior to placement of the dual-lumen catheter and once the tract had been successfully dilated, I then passed the ureteral access sheath into the upper pole calyx location as identified fluoroscopically. Unfortunately, the tip of the ureteral access sheath when passing it over the Bentson guidewire did not bend successfully and follow the wire down distally into the renal pelvis for the UPJ, and instead the tip of the ureteral access sheath did cause trauma and puncture the superior most calyx of the kidney instead of going down the wire. As a result, I removed the inner cannula of the ureteral access sheath and leaving the main portion of the sheath in place within the calyx, I attempted to perform direct vision ureteroscopy. I was able to navigate beyond the upper pole into the renal pelvis and down into the proximal ureter where the stent was observed, following along with the indwelling safety wire. Unfortunately, due to the very tortuous access that was achieved, I was unable to navigate the ureteroscope back around the tip of the access and into the other mid and lower pole calyces of the kidney. Attempts to modify this by removing the ureteral access sheath and using a Super Stiff wire before repositioning and replacing the ureteral access sheath only serve to further traumatize the prior calyceal injury and create blood clot that prohibited visualization on subsequent attempts at ureteroscopy and pyeloscopy. As a result, I aborted further attempts and passed over the indwelling safety wire a [place] loop nephrostomy tube with a coil observed fluoroscopically in the renal pelvis. Antegrade pyelography performed revealed appropriate intraluminal filling of the renal pelvis and the mid and lower pole calyces. There was no significant extravasation noted despite the known upper pole calyceal injury. With the new [place] loop nephrostomy tube in place and approximately near the tip of the coiled stent within the UPJ, I then irrigated the pelvis of the kidney to free it of any blood and blood clot and the patient was then taken out of the prone position. I then antegrade instilled the gemcitabine 2 g in 50 cc normal saline via the nephrostomy tube slowly and using fluoroscopic guidance to ensure no significant extrarenal extravasation because of 5 cc of Omnipaque that I added to the gemcitabine in saline. The contrast mixture of gemcitabine did fill the renal pelvis and calyces, all of them in fullness, without extravasation, and the gemcitabine contrast mixture did emanate into the proximal ureter, which it did dilate successfully indicative of successfully treating the proximal ureter before going down the stent. Of note, the urethral Harley catheter had been clamped once the patient was replaced in the lithotomy position, so that the gemcitabine that entered his bladder would also treat the intravesical area as well. After the entire 2 g had been instilled and fluoroscopically there was no significant extravasation noted, I then transferred the patient to a stretcher, and then he was transferred to the recovery room in good condition. Complications: Upper pole calyceal injury/trauma causing gross hematuria and prohibiting subsequent definitive ureteroscopic and pyeloscopic evaluation. Discharge Disposition: He should follow up early June to begin the induction course of intrarenal gemcitabine with a urethral Harley catheter placed for subsequent bladder treatment as the chemotherapy effluxes down the stent and into his bladder bathing the entirety of his urothelial mucosa from his left renal unit and into his bladder. This will be an induction course once weekly for 6 weeks, as long as the biopsy path remains Ta/non-invasive. Subsequent evaluation will then be performed to ensure clearance of the malignancy. JULIANNA/MAVIS Voice ID: [id number] Report ID: [id number] MTDD
--- NOTE | 2022-05-18 16:07 | OP ---
Surgeon: MILAD MENDEZ Preoperative Diagnosis: DICTATION ENDS HERE JULIANNA/MAVIS Voice ID: [id number] Report ID: [id number]
[2022-05-18] MEDS ORDERED: SUCCINYLCHOLINE 20 MG/ML (10 ML) IV ONE (16:32)
[2022-05-18] MEDS ORDERED: CODEINE 30MG/APAP 300MG TAB PO PRN (16:48)
[2022-05-18] MEDS ORDERED: ONDANSETRON 4 MG/2 ML VIAL IV PRN (17:22)
[2022-05-18] MEDS ORDERED: ACETAMINOPHEN 500 MG TAB PO PRN (17:22)
[2022-05-18] MEDS ORDERED: HYDROMORPHONE HCL 0.5 MG/0.5 ML INJ IV PRN (17:28)
[2022-05-18] MEDS: HYDROCODONE/APAP 5/325 MG TAB PO PRN (17:28)
[2022-05-18 18:06] VITALS: O2SAT 96
[2022-05-18] MEDS ORDERED: GEMCITABINE HCL 200 MG/5.26 ML VIAL IVPB ONE (18:12)
[2022-05-18] MEDS: GABAPENTIN 100 MG CAP PO SCH (20:28)
[2022-05-18] MEDS: TAMSULOSIN 0.4 MG SR CAP PO SCH (20:28)
[2022-05-18] MEDS: Ringers Lactate 1,000 ML IV SCH (20:29)
[2022-05-18] MEDS: CARBIDOPA/LEVODOPA 25/100 TAB PO SCH (20:40)
[2022-05-18] MEDS: HYDRALAZINE HCL 25 MG TABLET PO SCH (20:56)
[2022-05-18] MEDS ORDERED: GENTAMICIN 80 MG/100 ML BAG 80 MG/100 ML BAG IV SCH (21:00)
[2022-05-18] MEDS ORDERED: OXYBUTYNIN ER 5 MG TAB PO ONE (21:00)
[2022-05-18] MEDS ORDERED: Gentamicin Inj 120 MG in NA CHLORIDE 0.9% 100 ML IVPB ONE (22:00)
[2022-05-19 00:05] VITALS: BMI 29.9
[2022-05-19] MEDS: HYDROCODONE/APAP 5/325 MG TAB PO PRN ×2 (00:16→08:31)
[2022-05-19] MEDS: Ringers Lactate 1,000 ML IV SCH (04:00)
[2022-05-19 04:53] LABS: Absolute Lymphocytes (CBC) 0.9 K/uL (0.7-4.9); Hematocrit 35.3 % (39.6-49.0); Lymphocytes % 10.4 % (15.3-44.8); MCV 94.2 fL (80-100); MPV 7.6 fL (7.6-11.3); RBC Red Blood Cell Count 3.75 M/uL (4.33-5.43)
[2022-05-19 05:05] LABS: Potassium 4.4 mmol/L (3.5-5.1)
[2022-05-19] MEDS: METOPROLOL XL 50 MG TAB PO SCH (05:50)
[2022-05-19] MEDS: CARBIDOPA/LEVODOPA 25/100 TAB PO SCH ×2 (08:16→19:47)
[2022-05-19] MEDS: predniSONE 10 MG TAB PO SCH (08:17)
[2022-05-19] MEDS: GABAPENTIN 100 MG CAP PO SCH ×3 (08:17→19:47)
[2022-05-19] MEDS: HYDRALAZINE HCL 25 MG TABLET PO SCH ×2 (08:17→19:46)
[2022-05-19] MEDS: Gentamicin Inj 160 MG in NA CHLORIDE 0.9% 100 ML IV SCH ×2 (12:49→23:04)
[2022-05-19] MEDS ORDERED: GENTAMICIN 80 MG/100 ML BAG 80 MG/100 ML BAG IV SCH (18:30)
[2022-05-19] MEDS: TAMSULOSIN 0.4 MG SR CAP PO SCH (19:47)
--- NOTE | 2022-05-19 20:28 | P.PN ---
Subjective Date of Service: 05/19/22 Primary Care Provider: Dr. Schultz Chief Complaint: pelvic pain Subjective: Doing well He is feeling better since yesterday's TURBT and antegrade nephroureteroscopy with intrarenal-intravesical Gemcitabine administration where postoperatively he had some significant pelvic discomfort. Since prostatic urethral biopsies were also required to remove visible tumor present there, this was also a likely source of his discomfort. He has been managed overnight with Ditropan as well as [place]. He has been visited by the physical therapist who documented that he remains a high fall risk and recommended acute inpatient rehabilitation. I have discussed this with his , who agreed to try to convince him, and he now agrees to the acute rehabilitation. Physical Examination - Vital Signs Temperature: 97.1 F Blood Pressure: 119/55 Pulse: 81 Respirations: 16 Pulse Ox (%): 98 - Physical Exam General: Alert, In no apparent distress, Oriented x3 HEENT: Atraumatic, Mucous membr. 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 - PT recommends acute inpatient rehabilitation, and the patient now agrees. -Social work consultation to arrange placement -Will remove the urethral Harley catheter at midnight, and the patient must void successfully by 6 AM, or a new 18 Macanese coud tipped Harley catheter should be reinserted. The voided volume should be recorded. If patient is successfully able to void by 6 AM, a bladder scan postvoid residual assessment should be made, and if the postvoid residual is greater then the voided volume, an 18 Macanese coud tip Harley catheter should be reinserted. -Discontinue Ditropan -Continue to flush the nephrostomy tube with 10 cc preservative-free normal saline every 12 hours for now -Once nephrostomy tube urine clear, will plan to resume Eliquis. -Continue antimicrobial therapy with ampicillin and gentamicin while inpatient, and on discharge, patient may resume the Augmentin or Bactrim previously prescribed until that course is complete. Discharge Plan: LTAC Plan to discharge in: Unknown - Code Status/Comfort Care Code Status Assessed: Yes Code Status: Full Code Critical Care: No Time Spent Managing PTS Care (In Minutes): 35
[2022-05-20] MEDS: METOPROLOL XL 50 MG TAB PO SCH (05:59)
[2022-05-20] MEDS: GABAPENTIN 100 MG CAP PO SCH ×2 (08:56→14:14)
[2022-05-20] MEDS: predniSONE 10 MG TAB PO SCH (08:57)
[2022-05-20] MEDS: HYDRALAZINE HCL 25 MG TABLET PO SCH (08:57)
[2022-05-20] MEDS: CARBIDOPA/LEVODOPA 25/100 TAB PO SCH (08:57)
[2022-05-20] MEDS: Gentamicin Inj 160 MG in NA CHLORIDE 0.9% 100 ML IV SCH (12:56)
[2022-05-20 16:31] VITALS: BP 99/54; TEMP 97.6
[2022-05-22] MEDS ORDERED: HEPARIN 5000 UNIT/ML 1 ML VIAL SQ SCH (01:00)
== END 2022-05-20 17:50 ==
LOC: OR 08:44 → 3RD-ICU 18:11 → INTOOBSV 18:11 → 4TH 05-19 20:22
PROVIDERS: ADMIT Urology; ATTEND Urology
PROC: 3C1ZX8Z Irrigation of Indwelling Device using Irrigating Substance, External Approach (ICD-10-PCS; 2022-05-18)
PROC: 0TBB8ZX Excision of Bladder, Via Natural or Artificial Opening Endoscopic, Diagnostic (ICD-10-PCS; principal; 2022-05-18 10:00)
PROC: 3E0K705 Introduction of Other Antineoplastic into Genitourinary Tract, Via Natural or Artificial Opening (ICD-10-PCS; 2022-05-18 10:00)
DX: C67.9 Malignant neoplasm of bladder, unspecified (principal); C66.9 Malignant neoplasm of unspecified ureter; N13.5 Crossing vessel and stricture of ureter without hydronephrosis; I48.91 Unspecified atrial fibrillation; I10 Essential (primary) hypertension; G20 Parkinson's disease; Z85.038 Personal history of other malignant neoplasm of large intestine; Z20.822 Contact with and (suspected) exposure to COVID-19
CPT/HCPCS: 36415; 74425; 80048; 80170; 85025; 87811; 88305; 88307; 93005; 97116; 97161; 97530; A4216; G0378; G0379; J0290; J0330; J1580; J2001; J2704; J2710; J3010; J7120; J7512; J9201; U0003

== ENCOUNTER 2022-05-20 13:25 | Inpatient (IN) | payer OTHER ==
--- NOTE | 2022-05-20 15:11 | R.PREADM ---
PRE-ADMISSION SCREENING FORM SCREENING DATE AND TIME 05/20/2022 14:25 (CDT) ANTICIPATED REHAB ADMISSION DATE 05/22/2022 [facility] REFERRAL DATE AND TIME 05/20/2022 14:25 (CDT) ACUTE ADMIT DATE 05/18/2022 Previous Rehabilitation(s): No. REFERRING PHYSICIAN Saul Jett REHAB FACILITY [facility] CLINICAL LIAISON [place] PHYSICIAN REVIEWER Dr. Fred Mayorga M.D. MR# [id number] NAME BENITEZ REBOLLEDO ADDRESS [address] [place] [address] DATE OF 1940 AGE 81 SSN# [id number] GENDER male MARITAL STATUS RACE A. White ETHNICITY A. No, not of , /a, or Kazakh origin [id number]. LANGUAGE ADMIT FROM 02 - [facility] PRE-HOSPITAL LIVING SETTING 01 - Home (private home/apt. board/care, assisted living, fdc, transitional living) HOME TYPE AND DETAILS Type of home: single family house # of levels in the residence: 1 # of steps to enter the residence: 2 # of steps within the residence: 0 PRE-HOSPITAL LIVING WITH Family/Relatives FAMILY SUPPORT Yes PHONE PRIMARY FAMILY CONTACT ON ADM.? no IS PRIMARY FAMILY CONTACT AUTH. REP.? no PHONE 1ST CONTACT ON ADM. no IS 1ST CONTACT AUTH. REP.? no PHONE 2ND CONTACT ON ADM.? no PATIENT EMPLOYMENT STATUS Retired (for age) PATIENT EMPLOYER No Employer PAYOR INFORMATION: 1ST PAYOR NAME Medicare 1ST PAYOR INJURY/ILLNESS DUE TO ACCIDENT? No ANOTHER CONSTITUTION PARTY RESPONSIBLE? No PRIMARY REHAB/ACUTE DIAGNOSIS: Operative Antegrade Ureteroscopy and Biopsy with INTR ONSET DATE 05/18/2022 REHAB IMPAIRMENT CATEGORY (TERRY): 20 Miscellaneous (Misc) does NOT meet 60% rule PRIMARY DIAGNOSIS-RELATED SURGERIES: TUR of bladder tumor COMORBID REHAB/ACUTE DIAGNOSES: - Non-Tiered Parkinson's disease (G20) Neuropathy INTERVENTIONS: - Parkinson's Disease Assess ambulation and movement Assess patient for pallor or cyanosis in nail beds and/or around the mouth Assess respiratory status for rate, depth, ease, use of accessory muscles, and work of breathing Assist with Self-care deficits (feeding, dressing, hygiene, and toileting) related to tremors and mot or disturbances Encourage deep breathing and coughing exercises every 2 hours - Debility Establish measures to prevent skin breakdown and thrombophlebitis from prolonged immobility Provide safe environment Aggressive PT/OT - Afib Administer prescribed anticoagulants and monitor effectiveness Assess/ Monitor pt cardiac and respiratory status Mojitor pt labs - Neuropathy Education Medications Safety - Hypertension Assess/ Monitor patient B/P and treat with prescribed medications RISK FOR COMPLICATIONS: - DVT Active and Passive ROM exercises Administer medications per MD order Assist patient with frequent position changes Elevate BLE - Skin Breakdown Encourage ambulation as tolerated Repositioning q 2 hours Use of pillows or foam wedges while in bed - Falls Assess for medication side effects Maintain call light within patient reach for easy access to nursing assistance Provide assistance getting out of bed and with ambulation Provide assistive devices - Pain Anticipate the need for pain medication for optimal pain managment Assist patient with frequent position changes at least every 2 hours Educate patient on relaxation and deep breathing techniques Assess pt for pain and Administer prescribed pain medication as needed - Neuropathy Falls Sensory Deficits Skin breakdown SUMMARY OF ACUTE HOSPITALIZATION: Pt. is a 81 yo WM. On 05/18/2022 he was admitted to [facility] with diagnosis Operative Antegrade Ureteroscop y and Biopsy with INTR. His impairment category is Debility 16 - Debility (16). Pre-morbidly, Pt. was independent/mod-I in Locomotion and Self-Care; and he had good Endurance, Trans fers Control, Balance, and Safety Awareness. Currently, he has deficits of Locomotion, Safety Awareness, Balance, Transfers Control, Self-Care, an d Endurance. Pt. is now referred to [facility] for acute in-patient rehabilitation in order to maximize patient's functional independence in activities of daily living, strength, ROM, and mobi lity. Patient has realistic goal of being discharged at assistance level 6-Guilherme to reside at Home with Fam bina/Relatives. 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 Per PT, pt is dependent with bed mobility, transfers and gait and has d ecreased endurance, strength, balance and safety. Due to the decline in the patients condition he is not currently safe to remain in his current living arrangement due to reductions in balance, strength, endurance, and an inability to independently perform the necessary activities of daily living and self-care required. Pt is at risk for skin breakdown, DVT, pain, falls, stroke and infections. Our goal is for the patient to become stronger in order for him to safely return home and live independently. Patient would most directly benefit from aggressive 3 hours of daily therapy split between physical therapy and occupational therapy as well as speech therapy if warranted in the acute inpatient rehab setting. He is medically stable with relatively stable labs. He will require 24 hour nursing, doctor supervision and oversight while receiving condition and PHM. The patient is reasonably expected to participate in 3 hours of therapy a day/15 hours per week and receive care with an intensive interdisciplinary approach. COVID-19 screening performed; Patient denies new onset of fever, cough, difficulty breathing, sore throat, body aches and non-allergy nasal congestion in the past 24 hours. Patient denies travel outside of [place] in the past 14 days. Patient denies any contact with someone who has a confirmed diagnosis of or is under investigation for COVID-19 in the past 14 days. PAST MEDICAL AND SURGICAL HISTORY: - Neurological Other Parkinson's - Surgical History Other List Major Surgeries/Sites/Dates (Last 100 days) Cystoscopy MEDICATION ALLERGIES: No Known Drug Allergies (NKDA) ENVIRONMENTAL ALLERGIES: - Substance Allergies None Known - Other Allergies None Known CODE STATUS: Full code WEIGHT/HEIGHT/BMI: WEIGHT 215 lbs HEIGHT 71 inches BMI 29.98 SKIN DIAGRAM: nephrostomy on Back; extent - small; stage - NS(Not Stageable). Treatment - Per Physician's Orders. REVIEW OF SYSTEMS: - Gen Alert and awake Lying in bed No apparent distress Oriented to: person, time, and place - Vital Signs Temperature: 97.1 F SBP/DBP: 90/49 Pulse: 103 Resp: 16 Vital signs stable, afebrile - CVS RRR [id number]. PRIOR FUNCTIONING: EVERYDAY ACTIVITIES. A. SELF CARE Independent - Patient completed the activities by him/herself, with or without an assistive device, w ith no assistance from a helper. CODE: 3 B. INDOOR MOBILITY (AMBULATION) Independent - Patient completed the activities by him/herself, with or without an assistive device, w ith no assistance from a helper. CODE: 3 C. STAIRS Unknown CODE: 8 D. FUNCTIONAL COGNITION Independent - Patient completed the activities by him/herself, with or without an assistive device, w ith no assistance from a helper. CODE: 3 [id number] - COMMENTS:: Pt ambulates with a cane ACTIVE DIAGNOSES I0900. Peripheral Vascular Disease (PVD) or Peripheral Arterial Disease (PAD)I2900. Diabetes Mellitus (DM) (e.g., diabetic retinopathy, nephropathy, and neuropathy)I7900. None of the above (I0900 or I29 00)K0520. NUTRITIONAL APPROACHES.: Z. None of the above VITAL SIGNS Temperature: 97.1 F SBP/DBP: 90/49 Pulse: 103 Resp: 16 Vital signs stable, afebrile MEDICATIONS/TREATMENT: Other- See attached MAR (Medication Administration Record). CURRENT SPHINCTER CONTROL: Pre-hospital bladder status: unspecified # of bladder accidents in the last 7 days prior to screenin Pre-hospital bowel status: unspecified # of bowel accidents in the last 7 days prior to screenin Last Bowel Movement Date: 05/20/2022 DETAILED CURRENT FUNCTIONAL STATUS: - Bladder accident frequency: 7-Ind - No accidents in the past 7 days - Bowel accident frequency: 7-Ind - No accidents in the past 7 days - Walking score based on distance walked: 0(N/A) - Wheelchair score based on distance traveled: 0(N/A) QI SCORES: - Self-Care A. Eating 05-Setup or clean-up assistance B. Oral hygiene 05-Setup or clean-up assistance C. Toileting hygiene 03-Partial/moderate assistance E. Shower/bathe self 03-Partial/moderate assistance F. Upper body dressing 04-Supervision or touching assistance G. Lower body dressing 03-Partial/moderate assistance H. Putting on/taking off footwear 03-Partial/moderate assistance - Mobility A. Roll left and right 02-Substantial/maximal assistance B. Sit to lying 02-Substantial/maximal assistance C. Lying to sitting on side of bed 02-Substantial/maximal assistance D. Sit to stand 03-Partial/moderate assistance E. Chair/zfp-si-baivi transfer 03-Partial/moderate assistance F. Toilet transfer 03-Partial/moderate assistance G. Car transfer 88-Not attempted due to medical condition or safety concerns I. Walk 10 feet 03-Partial/moderate assistance J. Walk 50 feet with two turns 03-Partial/moderate assistance K. Walk 150 feet 88-Not attempted due to medical condition or safety concerns L. Walking 10 feet on uneven surfaces 88-Not attempted due to medical condition or safety concerns M. 1 step (curb) 88-Not attempted due to medical condition or safety concerns N. 4 steps 88-Not attempted due to medical condition or safety concerns O. 12 steps 88-Not attempted due to medical condition or safety concerns P. Picking up object 88-Not attempted due to medical condition or safety concerns R. Wheel 50 feet with two turns 88-Not attempted due to medical condition or safety concerns S. Wheel 150 feet 09-Not applicable - Bladder and Bowel Bladder continence 9-Not applicable Bowel continence 0-Always continent HISTORY OF FALLS. HAS THE PATIENT HAD TWO OR MORE FALLS IN THE PAST YEAR OR ANY FALL WITH INJURY IN T HE PAST YEAR?: No PRIOR SURGERY. DID THE PATIENT HAVE MAJOR SURGERY DURING THE 100 DAYS PRIOR TO ADMISSION?: Yes [id number]. SPECIAL TREATMENTS, PROCEDURES, AND PROGRAMS A1. CHEMOTHERAPY: A2. IV Z1. NONE OF THE ABOVE: No THERAPY NOTES FROM ACUTE CARE: Attached. SAFETY COCERNS/PRECAUTIONS: Balance SKIN BREAKDOWN RISK: Skin Breakdown Risk DVT RISK: DVT Risk PATIENT NEEDS ACTIVE AND ONGOING THERAPEUTIC INTERVENTION OF MULTIPLE THERAPY DISCIPLINES, INCLUDING: - Dietary and Nutrition Adequate Nutrition. Nutritional Education. Nutritional Supplements. - Occupational Therapy Cognitive Retraining. Patient needs Occupational Therapy for a daily minimum of 1.5 hours at least 5 out of 7 days, to improve Activities of Daily Living, including: Eating, Grooming, Bathing, Dressing, Toileting, Toilet Transfers, Community Reintegration, Higher functional activities, Adaptive Equipme nt, Splinting, Household Tasks, and Other activities as determined. Visual Perceptual Training. - Physical Therapy Patient needs Physical Therapy for a daily minimum of 1.5 hours at least 5 out of 7 days, to improve: Mobility, Strengthening, Transfers, Stretching, ROM, Endurance, Ability to manage stairs, Gait, and Balance. PATIENT NEEDS CLOSE MEDICAL SUPERVISION BY A REHABILITATION PHYSICIAN FOR: Coordination of Treatment Team Medical and Co-Morbidity Management Wound Care Bowel and Bladder Management Pain Management Post-Op Complications PATIENT REQUIRES 24X7 REHAB NURSING FOR MEDICAL AND FUNCTIONAL MGT. OF THE FOLLOWING DEFICITS: Disease Management Medication Management Patient requires 24x7 Rehabilitation Nursing for: Pain Issues, Identifying and preventing risk factor s, Monitoring and reporting current medical conditions, Assisting with ambulation and transfer, Chrissy ting with all ADL-s, Teaching patients about disease process and medications, Family teaching, Provid ing safe environment, Bowel and Bladder Issues, Skin Integrity, and Medication Management Patient/Family Education Providing Safe Environment Skin Integrity PATIENT REQUIRES INTENSIVE, COORDINATED INTERDISCIPLINARY APPROACH TO REHAB: Arranging Home Equipment/Services Discharge Planning Family Intervention/Training Patient needs Dietary and Nutrition Services for: Adequate Nutrition, Nutritional Supplements, and Nu tritional Education Patient needs Filter Tank Tender Helper and/or Case Management for: Discharge Planning, Arranging Home Equipmen t or Services, and Family Interventions Filter Tank Tender Helper/Case Management PATIENT REHAB POTENTIAL: Elian REBOLLEDO is able and expected to receive 3 hours of individualized therapy daily on at least 5 of every 7 days Elian REBOLLEDO's prognosis for significant practical improvement within a reasonable period of time appe ars Good Expected level of measurable improvement will be of a practical value to Elian REBOLLEDO's functional cap acity or adaptations to impairments Has a viable Discharge Plan Medically appropriate; condition is sufficiently stable to participate in intensive rehab program DISCHARGE PLAN: - Estimated Length of Stay (days) 13. - Consensus on plan Discharge plan has been discussed with primary caregiver. Patient/Family is in agreement with the shoaib n. Primary caregiver is in agreement with the plan. - Patient/Family Goals Return home independently. - Planned Living Setting Upon Discharge Home, to live with Family/Relatives. Transitional Living. RECOMMENDED CARE LEVEL: IRF RECOMMENDATION DETAILS: Recommended Admission to Comprehensive Rehabilitation Program to Increase Functional [place] SCREENER'S COMPLETENESS CONFIRMATION: - Screening Confirmation The patient data collection on this preadmission screening form is finished PHYSICIANS REVIEW AND ADMISSION DETERMINATION Admit - Based on my review of the Pre-Admission Screening results, in my medical judgment and experie nce, I concur with the findings and recommend admission to [facility], as this patient requires an IRF level of care. SIGNATURE PANEL: Clinical Liaison - [electronically] signed by Mary Logan on 05/20/2022 at 14:55 (CDT) Physician Reviewer - [electronically] signed by Dr. Fred Mayorga M.D. on 05/20/2022 at 15:10 ([facility] )
--- OUTSIDE RECORDS SUMMARY | 2022-05-20 17:56 | XMS REPORT | Continuity of Care Document ---
:1940 Author Organization [facility] t Address [address] [place] [address] [place] [address] Care Team Providers Name Role Phone SHARPLESS Primary Care Physician Unavailable CHRIS SPEAR Attending Clinician Unavailable MILAD MENDEZ Attending Clinician Unavailable Milad Mendez MD Attending Clinician Virtual, Surgeon Attending Clinician Unavailable Diana Lake Attending Clinician Unavailable CHRIS SPEAR Attending Clinician Unavailable Jazzy Anderson Attending Clinician GENI OLIVA Attending Clinician Unavailable Geni Oliva MD Attending Clinician Fidel Reyes MD Attending Clinician [phone] Andrew Neil MD Attending Clinician ANDREW NEIL Attending Clinician Unavailable Jason Kelly MD Attending Clinician Zach Gould Attending Clinician [phone] Dewayne Cruz MD Attending Clinician DENNY KRISHNAN Attending Clinician Unavailable DIMA REA Attending Clinician Unavailable CHRIS SPEAR Admitting Clinician Unavailable MILAD MENDEZ Admitting Clinician Unavailable FIDEL REYES Admitting Clinician Unavailable Zach Gould Admitting Clinician Payers Payer Name Policy Type Policy Number Effective Date Expiration Date Ally cm MEDICARE A B [id number] 2005 00:00:00 GENERIC MEDICARE [id number] 2015 SUPPLEMENT 00:00:00 MEDICARE PART A \\T\\ [id number] B - MEDICARE MEDIGAP-GENERIC - [id number] 2010 GENERIC PAYOR 00:00:00 AAR MEDICARE [id number] SUPPLEMENT PLAN - [facility] GENERIC-[id number] - Flocations Problems Condition Condition Condition Status Onset Resolution Last Treating Co mments Source Name Details Category Date Date Treatment Clinician Date 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 05-03 [facility] 00 [place] Hydrourete Hydrourete Disease Active [facility] r 5-04 [facility] 00:00: of 00 Medicin e Nephrostom Nephrostom Disease Active [facility] y status y status 5-04 Colleg e (HCCode) (HCCode) 00:00: of 00 Medicin e CHARY (acute CHARY (acute Disease Active [facility] kidney kidney 4-26 [facility] injury) injury) [facility] 00 Center Atrial Atrial Disease Active [facility] fibrillati fibrillati 4-26 [facility] k[facility] on on 00:00: Medical 00 Center Benign Benign Disease Active [facility]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 4-26 [facility] HTN HTN 00:00: Medical 00 Center Hydronephr Hydronephr Disease Active [facility] osis osis 01-03 [facility] HYDRONEHRO HYDRONEHR Diagnosis Active 2021-12-12 Memoria SIS OSIS -02 15:22:00 l Active 00:00: [place] 12/12/[address] [place] [address] SEVERE SEVERE Diagnosis Active 2021-12-22 M emoria HYDRONEPHR HYDRONEPHR 4-02 21:45:00 l OSIS OSIS 00:00: [place] Active 00 12/12/2021 [facility] Joint pain Joint pain Disease Active 2021-0 U nivers 3-10 ity of 00:00: [place] [facility] Abnormal Abnormal Disease Active 2021-0 Unive rs gait gait 3-10 ity of 00:00: [place] [facility] Muscle Muscle Disease Active 2021-0 [facility] weakness weakness 3-10 ity of 00:00: [place] [facility] Nonrheumat Nonrheumat Disease Active 2020-0 U nivers ic aortic ic aortic 5-11 ity of valve valve 00:00: [place] insufficie insufficie 00 Me dical ncy ncy Branch PAF PAF Disease Active 2020-0 Univers (paroxysma (paroxysma 5-11 it y of l atrial l atrial 00:00: [place] fibrillati fibrillati 00 Me dical on) on) Branch 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 00:00: [place] [facility] Essential Essential Disease Active 2020-0 Uni vers hypertensi hypertensi 2-01 it y of on on 00:00: [place] 00 Medical Branch 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 00:00: [place] [facility] Dizzy Dizzy Disease Active 2020-0 Univers spells spells 2-01 ity of 00:00: [place] 00 Medical Branch 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, sinus a, sinus 2-01 ity of 00:00: [place] [facility] Atypical Atypical Disease Active 2020-0 Unive rs chest pain chest pain 1-30 it y of 00:00: [place] 00 Medical Branch 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 a 1-23 ity of 00:00: [place] 00 Medical Branch Meningioma Meningioma Disease Active 2015-[address] 2[facility]15 [facility] Brain Brain Disease Active 2015-[address] [facility] [address] tumor tumor 2-15 [facility] Center Hyperlipid Hyperlipid Disease Active 2015-09 B roly emia emia 10-21 College 00:00: of 00 Medicin e BPH BPH Disease Active 2015-09 [facility] (benign (benign 10-21 [place] prostatic prostatic 00:00: of hyperplasi hyperplasi 00 Me dicin a) a) e History of History of Disease Active 2015-09 [facility] colon colon 209 [place] cancer cancer 00:00: of 00 Medicin e Meningioma Meningioma Disease Active 2015-09 [facility] 209 College 00:00: of 00 Medicin e Tobacco Tobacco Disease Active 2015-09 [facility] abuse abuse 2 [place] 00:00: of 00 Medicin e Preoperati Preoperati Disease Active 2015-09 B roly ve ve 10-21 [place] cardiovasc cardiovasc 00:00: of ular ular 00 Medicin examinatio examinatio e n n Focal Focal Disease Active 2015-[address] [facility] [address] seizure seizure 10-18 [facility] Seizure Seizure Disease Active 2015-[address] 10-18 [facility] Colon Colon Disease Active 2015-[address] [facility] cancer cancer 10-18 [facility] Alcohol Alcohol Disease Active 2015-[address] [facility] abuse abuse 10-18 [facility] Center Hyperlipid Hyperlipid Disease Active 2015-[address] emia emia 10-18 [facility] Center BPH BPH Disease Active 2015-[address] [facility] (benign (benign 10-18 [facility] prostatic prostatic 00:00: Medi emmanuel hyperplasi hyperplasi 00 Ce nter a) a) Sleep Sleep Disease Active [facility] apnea apnea 5-14 [facility] 00:00: of 00 Medicin e Chest Chest Disease Active [facility] tightness tightness 5-14 Юлия ege 00:00: of 00 Medicin e Muscle Muscle Disease Active 2009-09 [facility] wasting wasting 129 College 00:00: of 00 Medicin e Decreased Decreased Disease Active 2009-09 [facility] maira appetite appetite 1-29 Colleg e 00:00: of 00 Medicin e Irritable Irritable Disease Active 2009-09 [facility] maira 1-29 College 00:00: of 00 Medicin e ADENOCARCI ADENOCARCI Disease Active Lisa dunham NOMA, NOMA, 3-14 College COLON COLON 00:00: of 00 Medicin e DYSPNEA ON DYSPNEA ON Disease Active Lisa dunham EXERTION EXERTION 8-15 Colleg e 00:00: of 00 Medicin e COUGH COUGH Disease Active [facility] 8-15 [facility] 00:00: of 00 Medicin e CARCINOMA, CARCINOMA, Disease Active [facility] URETER URETER 8-13 [place] 00:00: of 00 Medicin e Mass of [place] of Problem Active 2022-01-14 M emoria urinary urinary 23:33:48 l bladder bladder Fredo (finding) (finding) Active Problem 01/14/2022 Medical Group Muscle Muscle Problem Active 2022-01-14 Sergei kristina strain strain 23:33:48 l (disorder) (disorder) He rmann Active Problem 01/14/2022 Medical Group No known No known Disease Metho di active active st problems problems Hospit a l Allergies, Adverse Reactions, Alerts Allergy Allergy Status Severity Reaction(s) Onset Inactive Treating Comm ents Source Name Type Date Date Clinician HYDROMOR Allergy Active [facility] PHONE 8-22 [facility] Center Hydromor Propensi Active hallucina [facility] phone ty to 8-22 tions [facility] adverse 00:00: Medical reaction 00 Center s NO KNOWN Allergy Active [facility] Social History Social Habit Start Date Stop Date Quantity Comments Source History of Occasional tobacco Method ist tobacco use smoker Hospital History [facility] Medical Ce nter Lived Exposure to 2022-04-23 2022-05-[address] [facility] SARS-CoV-2 00:00:00 09:32:00 Medical Center (event) History [facility] 2022-01-04 2022-01-[address] [facility] Housing Unable 00:00:00 00:00:00 Medical Ce nter to Pay History [facility] 2022-01-04 2022-01-[address] [facility] Housing Homeless 00:00:00 00:00:00 Medical Center Last Year Tobacco use and 2022-01-03 2022-01-[address] [facility] Tracy kes exposure 00:00:00 00:00:00 Medical Center Alcohol intake 2021-07-08 2021-07-08 Current drinker of Ca thodist 00:00:00 00:00:00 alcohol (finding) Hospita l Tobacco Comment 2021-07-07 2021-07-07 [facility] 00:00:00 00:00:00 Hospital Alcohol Comment 2021-07-07 2021-07-07 wine [facility] 00:00:00 00:00:00 Hospital Sex Assigned At [birth year] [facility] 00:00:00 00:00:00 Hospital Smoking Status Start Date Stop Date Source Social History 2021-12-12 22:47:18 [facility] Occasional tobacco smoker 2012-01-25 00:00:00 [facility] Medications Ordered Filled Start Stop Current Ordering Indication Dosage Frequency Signature Comments Components Source Medication Medication Date Date Medication? Clinician (SIG) Name Name econazole Yes QD Apply [facility] nitrate 8-25 topically [facility] (SPECTAZOLE 09:33: daily. Medi emmanuel ) 1 % cream 29 Center tamsulosin Yes .4mg QD Take 0.[address] (FLOMAX) 8-25 mg by [facility] 0.4 mg Cp24 09:33: mouth Medic al 24 hr 29 nightly. Center capsule finasteride Yes 5mg QD Take [address] (PROSCAR) 5 8-25 by mouth Luke s mg tablet 09:33: nightly. Medi emmanuel 29 Center silver Yes QD Apply [facility] sulfADIAZIN 8-25 topically Kristopher es E 09:33: daily. Medical (SILVADENE, 29 Center SSD) 1 % cream famotidine Yes 20mg Q.5D Take [address] (PEPCID) 20 8-25 by mouth 2 Tracy kes MG tablet 09:33: (two) Medical 29 times Center daily. metoprolol Yes hypertensio 50mg QD Take [address] succinate 8-25 n by mouth [facility] (TOPROL-XL) 09:33: daily. Medi emmanuel 50 MG 24 hr 29 Center tablet predniSONE Yes 20mg QD Take [address] (DELTASONE) 8-25 by mouth Luke s 20 MG 09:33: daily. Medical tablet 29 Center apixaban Yes 2.5mg Q.5D Take 2.[address] (Eliquis) 8-25 mg by [facility] 2.5 mg Tab 09:33: mouth 2 Medi emmanuel tablet 29 (two) Center times daily. meclizine Yes Take by Jemal solorio (ANTIVERT) 5-04 mouth. [place] 12.5 MG 11:52: of tablet 07 Medicin e B 2021- No Take by [facility]-C-F 01-13- mouth. Colle ge olic Acid 11:51: 00:00 of (NEPHRO-VIT 48 :00 Medicin E) 0.8 MG e TABS lisinopriL 2021- No hypertensio 20mg QD Take [address] (PRINIVIL,Z 01-05- n by mouth Kristopher es ESTRIL) 20 13:05: 00:00 daily. Medi emmanuel MG tablet 14 :00 Center lisinopriL Yes hypertensio 20mg QD Take [address] (PRINIVIL,Z - n tablet (20 Tracy kes ESTRIL) 20 00:00: mg total) Me dical MG tablet 00 by mouth Center daily Hold this medication until you see your primary care doctor and have blood work repeated. ciprofloxac 2021- No 500mg Q.5D Take [address] in HCl 01-05 tablet [facility] (CIPRO) 500 00:00: 23:59 (500 mg Me dical MG tablet 00 :00 total) by Cente r mouth 2 (two) times daily for 7 days. amoxicillin Yes TAKE 1 [facility] -clavulanat 4-21 TABLET BY Col lege e 00:00: MOUTH of (AUGMENTIN) 00 EVERY 8 Medic in 500-125 MG HOURS FOR e per tablet 7 DAYS dexamethaso Yes TAKE 1 [facility] ne 4-18 TABLET BY [place] (DECADRON) 00:00: MOUTH of 4 MG tablet 00 TWICE A Medic in DAY e Robaxin 500 Yes 500 mg = 1 Memoria mg oral 4-11 tab, PO, l tablet 19:16: QID, X 7 Fredo day, # 28 tab, 0 Refill(s), Pharmacy: [id number], 180.34, cm, 12/12/21 18:09:00 CDT, Height, 94.545, kg, 12/12/21 18:09:00 CDT, Weight docusate No Notes: Memoria 4-03 (Same as: l 14:00: Colace) Fredo 00 (Do Not Crush) thiamine No Notes: Memoria 12-13 (Same As: l 14:00: Vitamin [place] 00 B1) pneumococca No Notes: Sergei kristina l 23-valent 12-12 (Same as: l vaccine 22:55: Pneumovax Sunita nn 45 23) Refrigerat e Metoprolol Yes 50 mg = 1 Me moria Succinate 4-02 tab, PO, l ER 50 mg 22:55: Daily, # Sunita nn oral 00 30 tab, 0 tablet, Refill(s) extended release predniSONE Yes 20 mg = 1 Me moria 20 mg oral -02 tab, PO, l tablet 22:55: Daily, 0 [place] 00 Refill(s) carbidopa-l Yes 1 tab, PO, Memoria evodopa 50 12-12 BID, # 60 l mg-200 mg 22:54: tab, 0 Eliot n oral 00 Refill(s) tablet, extended release lisinopril Yes 20 mg = 1 Me moria 20 mg oral 4-02 tab, PO, l tablet 22:54: Daily, # Fredo 00 30 tab, 0 Refill(s) Eliquis 5 Yes 5 mg, PO, Mem oria mg oral 12-12 Q12H, tab, l tablet 22:53: 0 Fredo 00 Refill(s), For Atrial Fibrilatio n hydrALAZINE Yes 50 mg = 1 M emoria 50 mg oral 02 tab, PO, l tablet 22:52: BID, 0 [place] 00 Refill(s) D10W No 125 mL, Memoria (bolus) IV 12-12 999 ml/hr, l 22:32: Route: [place] 00 IVPB, Drug Form: INJ, kg, PRN, PRN Blood Glucose Results, Start date: 12/12/21 17:32:00 CDT, Duration: 30 day, Stop date: 01/11/22 17:31:00 CDT, Infuse over: 0.1 hr, 0 Dextrose No 25 mL, Memoria 50% Syringe 12-12 Route: l (D50W) 22:06: IVP, kg, Fredo 00 PRN, PRN Blood Glucose Results, Start date: 12/12/21 17:06:00 CDT, Duration: 30 day, Stop date: 01/11/22 17:05:00 CDT glucagon No 1 mg, Memoria 12-12 Route: IM, l 22:06: Drug form: PDR/INJ, PRN, kg, PRN Blood Glucose Results, Start date: 12/12/21 17:06:00 CDT, Duration: 30 day, Stop date: 01/11/22 17:05:00 CDT, 0 ondansetron No Notes: Sergei kristina 12-12 (Same as: l 22:06: Zofran) MEDICATION WASTE Product Size: 4 mg Product Wasted: ___ mg melatonin No Notes: Memori a 12-12 (Same as: l 22:06: Melatonin) acetaminoph No Notes: Do M emoria en 12-12 not exceed l 22:06: 4 gm/day. (Same as: Tylenol) metoprolol Yes 50 mg = 1 Ba ylor (TOPROL-XL) 12-12 tab, PO, Юлия ege 50 MG XL 00:00: Daily, # of tablet 00 30 tab, 0 Medicin Refill(s) e Carbidopa-L Yes 1 tab, PO, Dominick evodopa CR 02 BID, # 60 Юлия ege 50-200 MG 00:00: tab, 0 of TBCR 00 Refill(s) Medicin e predniSONE Yes TAKE 1 [facility] (DELTASONE) 3-25 TABLET BY Col lege 20 MG 00:00: MOUTH of tablet 00 EVERY Medicin MORNING e WITH FOOD GABAPENTIN 2020-09 Yes TAKE 1 Unive rs 100 mg 1-12 CAPSULE BY ity of capsule 00:00: MOUTH [place] 00 THREE Medical TIMES A Branch DAY finasteride 2020-09 Yes 5mg QD Take 5 mg M ethodi (PROSCAR) 5 0-[address] mg tablet 13:24: daily. Hospit a 09 l meclizine 2020-09 Yes Take by Metho di (ANTIVERT) 0-[address] 12.5 mg 13:24: needed for Hosp timbo tablet 09 dizziness. l Does not know dosage carbidopa-l 2020-09- No 1{tbl} Q.5D Take 1 M ethodi evodopa 0-26 01-[address] (Sinemet 00:00: 05:59 mouth 2 Hospi ta CR) 50-200 00 :00 (two) l mg per CR times a tablet day for 90 days. gabapentin 2020-09 Yes [id number] 3 (three) Methodi (NEURONTIN) 0-[id number] 100 mg 00:00: 3D day. Hospita capsule 00 l hydrALAZINE Yes Q.5D 2 (two) Met hodi (APRESOLINE 9-[address] ) 50 MG 00:00: day. Hospita tablet 00 l hydrALAZINE Yes 50 mg = 1 B aylor (APRESOLINE 06-03 tab, PO, Юлия ege ) 50 MG 00:00: BID, 0 of tablet 00 Refill(s) Medicin e tamsulosin Yes Methodi (FLOMAX) 06-02 st 0.4 mg 00:00: Hospita capsule 00 l Tamsulosin Yes [facility] HCl 0.4 MG 06-02 [place] CAPS 00:00: of 00 Medicin e Eliquis 5 2020-0 Yes Q.5D 2 (two) Metho di mg tablet 9-[address] 00:00: day. Hospita 00 l lisinopriL Yes 20mg QD 20 mg Method i (PRINIVIL) 05-[address] 20 mg 00:00: Hospita tablet 00 l metoprolol 2020-0 Yes QD daily. Metho di succinate 05-31 st XL 00:00: Hospita (TOPROL-XL) 00 l 50 mg 24 hr tablet carbidopa-l Yes [id number] 1{tbl} Take 1 Univers evodopa 1-29 tablet by ity of 25-100 mg 00:00: mouth 3 [place] tablet 00 (three) Medical times Branch daily. apixaban Yes 1358 5mg Take 1 Univers (ELIQUIS) 5 1-07 tablet by ity of mg tablet 00:00: mouth 2 [place] 00 (two) Medical times Branch daily. Indication s: atrial fibrillati on nortriptyli 2019-09 Yes 50mg Take 50 mg Univers ne 50 mg 2-28 by mouth ity of capsule 11:32: at [place] 42 bedtime. Medical Branch finasteride 2019-09 Yes 5mg Take 5 mg U nivers 5 mg tablet 2-28 by mouth ity of 11:32: daily. [place] 42 Medical Branch tamsulosin 2019-09 Yes .4mg Take 0.4 Uni vers (FLOMAX) 2-28 mg by ity of 0.4 mg 24 11:28: mouth [place] hr capsule 44 daily. Medical Branch magnesium 2019-09 Yes Take by Unive rs oxide 400 2-28 mouth ity of mg 11:28: daily. [place] magnesium 44 Indication Medi emmanuel capsule s: Branch "supposed to help with my balance problem" lisinopriL 2019-09 Yes [id number] 10mg Take 1 U nivers 10 mg 2-17 tablet by ity of tablet 00:00: mouth [place] 00 daily. Medical Branch hydrALAZINE 2019-09 Yes [id number] 50mg Take 1 Univers 50 mg 0-15 tablet by ity of tablet 00:00: mouth 2 [place] 00 (two) Medical times Branch daily. levetiracet 2021- No TAKE 1 [place] maira am (KEPPRA) 7- 05-04 TABLET BY Co llege 500 MG 00:00: 00:00 MOUTH of tablet 00 :00 TWICE Medicin DAILY e finasteride 2015-09 Yes TK 1 T PO B aylor (PROSCAR) 5 2-26 QD College MG tablet 00:00: of 00 Medicin e Cyanocobala 2015-09- No 1000ug Take 1,000 [facility] min 2- 05-04 mcg by [place] (VITAMIN 00:00: 00:00 mouth of B-12 CR) 00 :00 daily. Medicin 1000 MCG e TBCR sildenafil 2021- No 50mg 1 Tab. [facility] citrate -29 01-04 take 1 hr Colleg e (VIAGRA) 50 00:00: 00:00 before of MG tablet 00 :00 sexual Medicin activity e ASPIRIN 81 2006-09 Yes po qd Dominick MG PO TABS 1-27 [place] 00:00: of 00 Medicin e PRED FORTE 2021- No 1 gtt os Ba ylor 1 % OP SUSP 01-17 4 [place] 00:00: 00:00 of 00 :00 Medicin e Immunizations Ordered Immunization Filled Immunization Date Status Commen ts Source Name Name SARS-COV-2 COVID-19 2021-05-20 Completed Unive rsity of MODERNA VACCINE 00:00:00 [facility] Branch SARS-COV-2 COVID-19 2020-10-15 Completed Unive rsity of MODERNA VACCINE 00:00:00 [facility] Branch SARS-COV-2 COVID-19 2020-09-17 Completed Unive rsity of MODERNA VACCINE 00:00:00 [facility] Branch Pneumococcal 2019-10-05 Completed University o f Polysaccharide, 00:00:00 [facility] PPSV23 (PNEUMOVAX) [place] Influenza High Dose 2019-06-12 Completed Unive rsity of 00:00:00 [facility] Hepatitis A Adult 2019-03-29 Completed Univers ity of 00:00:00 [facility] DTAP 2019-03-12 Completed University of 00:00:00 [facility] HEPATITIS A 2018-09-29 Completed University of 00:00:00 [facility] TDAP 2018-09-29 Completed University of 00:00:00 [facility] Pneumococcal 2016-08-[address] [facility] Polysaccharide 00:00:00 Medical Ce nter (Pneumovax) Influenza (whole) 2016-06-10 Completed [facility] 00:00:00 of Medicine Td 2016-02-09 Completed University of 00:00:00 [facility] Influenza (whole) 2007-07-26 Completed [facility] 00:00:00 of Medicine Influenza (whole) 2006-06-15 Completed [facility] 00:00:00 of Medicine Influenza (whole) 2006-03-09 Completed [facility] 00:00:00 of Medicine Influenza (whole) 2005-11-10 Completed [facility] 00:00:00 of Medicine Influenza (whole) 2005-08-11 Completed [facility] 00:00:00 of Medicine Vital Signs Vital Name Observation Time Observation Value Comments Source HEIGHT 2022-05-03 07:32:00 180.3 cm WEIGHT 2022-05-03 07:32:00 100.699 kg HEIGHT 2022-05-03 07:32:00 180.3 cm WEIGHT 2022-05-03 07:32:00 100.699 kg HEIGHT 2022-05-03 07:32:00 180.3 cm WEIGHT 2022-05-03 07:32:00 100.699 kg Systolic blood 2022-01-13 16:42:00 116 mm[Hg] [facility] Medicine Diastolic blood 2022-01-13 16:42:00 70 mm[Hg] [facility] Medicine Heart rate 2022-01-13 16:42:00 77 /min [facility] Body height 2022-01-13 16:42:00 180.3 cm [facility] Body weight 2022-01-13 16:42:00 92.987 kg [facility] BMI 2022-01-13 16:42:00 28.59 kg/m2 [facility] Systolic blood 2022-05-03 17:31:00 97 mm[Hg] [facility] Diastolic blood 2022-05-03 17:31:00 50 mm[Hg] [facility] Heart rate 2022-05-03 17:31:00 96 /min [facility] Body temperature 2022-05-03 17:31:00 35.94 Pattie [facility] Respiratory rate 2022-05-03 17:31:00 18 /min [facility] Oxygen saturation in 2022-05-03 17:31:00 100 /min [facility] Arterial blood by Medical Ce nter Pulse oximetry Body height 2022-05-03 07:32:00 180.3 cm [facility] Body weight 2022-05-03 07:32:00 100.699 kg [facility] BMI 2022-05-03 07:32:00 30.96 kg/m2 [facility] Heart Rate 2021-12-13 01:12:24 Mundo Yoo Respitory Rate 2021-12-13 01:12:24 Clementina Zamora Systolic (mm Hg) 2021-12-13 01:12:14 Sergei Yoo Diastolic (mm Hg) 2021-12-13 01:12:14 Mem orial [place] Heart Rate 2021-12-13 01:12:14 [facility] [place] Temperature Oral (F) 2021-12-13 01:11:50 97.6 F [facility] [place] Height 2021-12-12 23:09:00 180.34 cm [facility]o Weight 2021-12-12 23:09:00 [facility] [place] BMI Calculated 2021-12-12 23:09:00 Memori al [place] Heart Rate 2021-12-12 22:02:05 [facility] [place] Respitory Rate 2021-12-12 22:02:05 Memori al Fredo Systolic (mm Hg) 2021-12-12 22:01:44 Sergei rial [place] Diastolic (mm Hg) 2021-12-12 22:01:44 Mem orial [place] Temperature Oral (F) 2021-12-12 22:00:54 97.7 F [facility] [place] Systolic blood 2021-07-07 18:25:00 123 mm[Hg] [facility] pressure Diastolic blood 2021-07-07 18:25:00 72 mm[Hg] [facility] pressure Heart rate 2021-07-07 18:25:00 84 /min [facility] Body temperature 2021-07-07 18:17:00 36.28 Pattie [facility] Body height 2021-07-07 18:17:00 177.8 cm [facility] Body weight 2021-07-07 18:17:00 93.895 kg [facility] BMI 2021-07-07 18:17:00 29.70 kg/m2 [facility] Procedures Procedure Date / Time Performing Clinician Source Performed IR NEPHROSTOMY TUBE 2022-05-03 13:35:00 Milad Mendez [facility] POCT-GLUCOSE METER 2022-05-03 09:23:00 Milad Mendez [facility] CBC W/PLT COUNT & AUTO 2022-05-03 09:17:00 Kelle Velazco [facility] PROTHROMBIN TIME/INR 2022-05-03 09:17:00 Kelle Velazco [facility] CBC W/PLT COUNT & AUTO 2022-05-03 09:17:00 Kelle Velazco [facility] DIFFERENTIAL Center CULTURE, 2022-01-13 13:03:54 [facility] ge of URINE/SENSITIVITY ON ALL Medicin e CYTOLOGY, URINE 2022-01-13 13:03:54 [facility] POCT URINALYSIS DIPSTICK 2022-01-13 00:00:00 Chris Spear [facility] POCT URINALYSIS DIPSTICK 2022-01-13 00:00:00 [facility] POCT-GLUCOSE METER 2022-01-05 11:47:00 Andrew Neil [facility] BASIC METABOLIC PANEL 2022-01-05 04:12:00 [facility] [place] CBC W/PLT COUNT & AUTO 2022-01-05 04:12:00 [facility] DIFFERENTIAL [facility] [place] CBC W/PLT COUNT & AUTO 2022-01-05 04:12:00 [facility] DIFFERENTIAL Rasendu [place] URINE CULTURE 2022-01-04 20:26:00 [facility] GRAM STAIN 2022-01-04 20:26:00 [facility] IR PERCUTANEOUS 2022-01-04 18:44:00 Rashaad [facility] NEPHROSTOMY TUBE Center PLACEMENT BASIC METABOLIC PANEL 2022-01-04 04:04:00 Latesha [facility] (7) [facility] CBC W/PLT COUNT & AUTO 2022-01-04 04:04:00 [facility] DIFFERENTIAL [facility] CBC W/PLT COUNT & AUTO 2022-01-04 04:04:00 [facility] [place] URINALYSIS W/ REFLEX 2022-01-03 23:04:00 [facility] URINE CULTURE Center COMPREHENSIVE METABOLIC 2022-01-03 22:44:00 [facility] PANEL Center CBC W/PLT COUNT & AUTO 2022-01-03 22:44:00 Michael Burton [facility] Center PT/APTT 2022-01-03 22:44:00 Burton, [facility] PROTHROMBIN TIME/INR 2022-01-03 22:44:00 Micheal [facility] CBC W/PLT COUNT & AUTO 2022-01-03 22:44:00 Micheal [facility] Center MRI BRAIN WO CONTRAST 2021-07-09 19:50:00 Nirav Low ist [facility] Evens Tumor destruction [facility] nn Hernia repair [facility] Plan of Care Planned Activity Planned Date Details Comments Source Future Scheduled 2029-03-12 DTAP/TDAP/TD [facility] s Test 00:00:00 VACCINES (3 - Td or [facility] Tdap) [code = DTAP/TDAP/TD VACCINES (3 - Td or Tdap)] Future Scheduled 2022-05-13 INFLUENZA VACCINE [facility] Test 00:00:00 (#1) [code = [facility] INFLUENZA VACCINE (#1)] Future Scheduled 2022-05-12 HEPATITIS B VACCINES [facility] Test 06:46:57 (1 of 3 - 3-dose Hospital series) [code = HEPATITIS B VACCINES (1 of 3 - 3-dose series)] Future Scheduled 2022-05-12 SHINGLES VACCINES (1 [facility] Test 06:46:57 of 2) [code = Hospital SHINGLES VACCINES (1 of 2)] Future Scheduled 2022-05-12 65+ PNEUMOCOCCAL [facility]i [facility] Test 06:46:57 VACCINE (2 - PCV) Hospital [code = 65+ PNEUMOCOCCAL VACCINE (2 - PCV)] Future Scheduled 2022-05-12 COVID-19 VACCINE (4 Meth odist Test 06:46:57 - Booster for Hospital Moderna series) [code = COVID-19 VACCINE (4 - Booster for Moderna series)] Future Scheduled 2022-05-12 INFLUENZA VACCINE Method ist Test 06:46:57 [code = INFLUENZA Hospital VACCINE] Future Scheduled 2022-01-13 CULTURE, Ordered: [facility] ege of Test 13:03:54 URINE/SENSITIVITY ON 01/13/2022 Medicin e ALL [code = 43972-9] Future Scheduled 2022-01-13 CULTURE, Ordered: [facility] of Test 13:03:54 URINE/SENSITIVITY ON 01/13/2022 Medicin e ALL [code = 16261-7] Future Scheduled 2022-01-13 CYTOLOGY, URINE Ordered: [facility] Test 13:03:54 [code = 20926] 01/13/2022 Medicine Future Scheduled 2022-01-13 CYTOLOGY, URINE Ordered: [facility] Test 13:03:54 [code = 73882] 01/13/2022 Medicine Future Scheduled 2022-01-13 BMI FOLLOW UP PLAN [facility] of Test 12:47:39 [code = BMI FOLLOW Medicine UP PLAN] Future Scheduled 2022-01-13 ZOSTER VACCINE ([address] [facility] of Test 12:47:39 2) [code = ZOSTER Medicine VACCINE (1 of 2)] Future Scheduled 2022-01-13 MEDICARE AWV [facility] of Test 12:47:39 (Initial) [code = Medicine MEDICARE AWV (Initial)] Future Scheduled 2022-01-13 Pneumococcal 65+ (1 [facility] or [facility] of Test 12:47:39 of 1 - PPSV23) [code Medicin e = Pneumococcal 65+ (1 of 1 - PPSV23)] Future Scheduled 2022-01-13 FLU VACCINE > 6 [facility] Test 12:47:39 MONTHS [code = FLU Medicine VACCINE > 6 MONTHS] Future Scheduled 2022-01-13 FALL SCREEN [code = [facility] or [employer] of Test 12:47:39 FALL SCREEN] Medicine Future Scheduled 2022-01-13 TETANUS SHOT (ADULT) [facility] of Test 12:47:39 [code = TETANUS SHOT Medicin e (ADULT)] Future Scheduled 2021-09-19 COVID-19 VACCINE ([address] [facility] Test 00:00:00 - Booster for Medical Center Moderna series) [code = COVID-19 VACCINE (4 - Booster for Moderna series)] Future Scheduled 2021-09-[address] [facility] Test 00:00:00 (12+) [code = Medical Center DEPRESSION SCREENING (12+)] Future Scheduled 2021-09-12 FALLS RISK SCREENING [facility] Test 00:00:00 [code = FALLS RISK Medical C enter SCREENING] Future Scheduled 2020-10-05 PNEUMOCOCCAL 65+ [facility]RS [facility] Test 00:00:00 (2 - PCV) [code = Medical Ce nter PNEUMOCOCCAL 65+ YRS (2 - PCV)] Future Scheduled 2006-08-[address] [facility] Test 00:00:00 WELLNESS (YEAR 2 or Medical Center FIRST YEAR if no IPPE) [code = MEDICARE ANNUAL WELLNESS (YEAR 2 or FIRST YEAR if no IPPE)] Future Scheduled 1990 SHINGLES VACCINES ([address] [facility] Test 00:00:00 of 2) [code = Medical Center SHINGLES VACCINES (1 of 2)] Encounters Start End Encounter Admission Attending Care Care Encounter Source Date/Time Date/Time Type Type Clinicians Facility Department ID 2022-01-27 Outpatient WILLARD CONNORS Surgery [id number] SLE 08:47:36 [facility] 2022-05-03 2022-05-03 Outpatient [facility] [id number] [facility] 14:56:33 23:59:00 [place] 2022-05-03 2022-05-03 [facility] [id number] 08:00:00 23:59:00 Encounter [facility] 2022-05-03 2022-05-03 [facility] Jason [facility] [id number] 06:36:00 10:35:00 Encounter [facility] 2022-05-03 2022-05-03 Outpatient AMBIKA MENDEZ [facility] Surgery [id number] SLE 06:36:00 10:35:00 [place] 2022-05-03 2022-05-03 [facility] [id number] 07:30:00 08:00:00 Surgeon [facility] 2022-05-03 2022-05-03 Orders Aleksandra [facility] [id number] 00:00:00 00:00:00 Only Diana Castañeda [facility] 2022-05-03 2022-05-03 Travel [facility] [id number] [facility] 00:[facility] 00:00:00 [facility] 2022-04-21 2022-04-21 Outside [facility] [id number] 00:00:00 00:00:[address] [facility] 2022-01-13 2022-01-13 Office HALIMA SPEAR [id number] [facility] 11:15:18 11:15:18 Visit CHRIS AMBULATOR 350.1.13.21 College Y 0.2.7.2.686 of [id number] Medi jasper 300 e 2022-01-12 2022-01-12 Ambulatory nullFlavo [facility] [id number] Memoria 20:30:00 20:30:00 Pre-Reg r Urology 01 l [facility] Sunita nn Time Share 2022-01-12 2022-01-12 Outpatient VALERIA SHAW [id number] Memoria 15:30:00 15:30:00 01 brant Yoo 2022-01-12 2022-01-12 Outpatient JIMY Anderson [facility] [id number] 15:30:00 15:30:00 Jazzy L 2022-01-03 2022[facility]01-05 [facility] [id number] 20:21:00 15:56:00 Encounter Fidel Reyes [facility] 2022-01-03 2022-01-05 Inpatient ER [facility] Urology [id number] [facility] 20:21:00 15:56:00 2022-01-03 2022-01-03 Travel [facility] [id number] [facility] 00:00:00 00:00:00 [facility] 2021-12-21 2021-12-22 Outpatient nullFlavo [facility] Multi 41 [id number] Memoria 18:35:00 04:59:59 r Specialty 00 l [facility] dorian [place] 2021-12-21 2021-12-21 Outpatient JIMY Adnerson [facility] [id number] 13:35:00 23:59:59 Jazzy L 00 2021-12-21 2021-12-21 Outpatient VALERIA SHAW [id number] Memoria 13:35:00 13:35:00 00 brant Yoo 2021-12-21 2021-12-21 Telephone Leticia [facility] 1.2.840.114 [id number] [facility] 00:00:00 00:00:00 [facility] 350.1.13.10 itashtyn burnett [facility] 4.2.7.2.686 Too as ARISTIDES?BLEA [id number] [address] OFFICE BUILDING 2021-12-12 2021-12-13 Observatio [facility] [id number] Memoria 21:21:00 01:15:00 n osmin Yoo 92 l [facility] 2021-12-12 2021-12-12 Outpatient Luis Fernando KAL[facility] [id number] 16:21:00 20:15:00 Zach [facility] 2021-07-09 2021-07-09 [facility], 1.2.840.1 [id number] Methodi 13:19:33 23:59:00 Encounter Dewayne 48244.1.1 444 [facility] 3.430.2.7 Hospit a .3.871437 l .8 2021-07-09 2021-07-09 Travel 1.2.840.1 [id number] [id number] Methodi 00:00:00 00:00:[address] 3.430.2.7 0.2.7.3.698 [facility] .[facility] 084.8 l .8 2021-07-09 2021-07-09 Outpatient [facility] [id number] [place] 00:00:00 00:00:00 [address] 2021-07-07 2021-07-07 Office [facility], 1.2.840.1 [id number] Methodi 13:15:00 16:08:39 Visit Dewayne 92797.1.[address] [facility] 3.430.2.7 Hospit a .3.474725 l .8 2021-07-07 2021-07-07 Travel 1.2.840.1 1.2.906.028 [id number] Methodi 00:00:00 00:00:[address] 3.430.2.7 0.2.7.3.698 Ho spita .3.325019 084.8 l .8 2021-07-07 2021-07-07 Outpatient ONDO, [facility] [id number] [place] 00:00:00 00:00:00 DEWAYNE [address] 2021-06-12 2021-06-12 Travel 1.2.840.1 [id number] [id number] Methodi 00:00:00 00:00:[address] 3.430.2.7 0.2.7.3.698 Ho spita .3.163287 084.8 l .8 2021-06-11 2021-06-11 Telephone On, 1.2.840.1 [id number] Methodi 00:00:00 00:00:00 Dewayne 37695.1.1 598 [facility] 3.430.2.7 Hospit a .3.968052 l .8 Results Test Description Test Time Test Comments Results Result [facility] Comments ANG, NEPHROSTOMY 2022-05-06 Reason for TUBE CHANGE, LEFT 17:22:00 Exam:->NEOPLAS M RELATED [facility]IN [facility] : 1940 Sex: M FINAL REPORT Ultrasound and fluoroscopically guided left nephrostomy tube placement Clinical History: Collecting system access for chemotherapy administration. Modality: Sonography and fluoroscopy Hoist Worker: Mike Fischer MD. Social Media Coordinator: Saul Sotelo M.D.. Sedation: Versed 3 mg and fentanyl 150 mcg was given intravenously for conscious sedation. Vital signs were monitored throughout the procedure by a nurse, and remained stable. Physician intra-service time was 90 minute. Estimated Blood Loss: Less than 5 cc. Specimen: None. Fluoroscopy Time: 9.4 min.Reference Air Kerma (Ka, r): 551 mGy. Technique: Informed written consent was obtained. Discussion of risks, benefits, and alternatives were made with the patient. The patient expressed understanding and agreed to proceed. A universal timeout was performed prior to starting the procedure. All elements maximal sterile barrier technique was utilized for this procedure, including utilization of sterile scrub solution for skin prep, a large sterile sheet to cover the areas of the patient that were not prepped, and hand hygiene, mask, head covering, and sterile gown for performing radiologist and scrub technologist. Local anesthesia was achieved with 1% lidocaine, the left upper pole calyx was visualized with ultrasound, slight caliectasis to this calyx noted. No evidence of hydronephrosis as patent left ureteral stent in place. Using ultrasound guidance, a 21-gauge Accustick needle was advanced into the calyx. Contrast injection confirmed placement within the calyx. A 0.018 inch wire was advanced through the needle a curled within the pelvis. The Accustick sheath was advanced over the wire and an Amplatz wire was advanced down the ureter. After a small skin incision was made, the soft tissue tract was dilated with 7 and 9 Jordanian dilators. A 8.5 Jordanian drainage catheter was placed into the left renal pelvis. The wire was then removed, and the pigtail of the catheter was locked. The catheter was then secured onto the skin with 2-0 Prolene. The patient tolerated the procedure well, without immediate complications. The patient's vital signs remained stable throughout the procedure. In the patient recovery area minimal outflow is noted to the left upper pole percutaneous nephrostomy. Likely due to internal urine drainage through ureteral stent. This finding was discussed with ordering physician urologist Dr. Mendez, decision was made for antegrade nephrostogram through recently placed nephrostomy to ensure catheter position placement within collecting system. 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 Patient disposition: The patient was discharged from the department in stable condition. Impression:Successful placement of left nephrostomy tube. Signed: Mike Fischer Verified Date/Time: 05/06/2022 17:22:20 Reading Location: [facility] P048 Angio Body Reading Room -Glucose meter 2022-05-03 09:58:14 Test Item Value Reference Range Interpretation Comme nts POC-Glucose Meter (test code = 107 mg/dL 70-110 : TESTED AT [facility] [address] [facility] 1538) [facility], 770 30: Filtration Operator/Techni raoul ID = [id number] for CAREN BLACKWELL ET Lab Interpretation (test code = Normal 33512-1) [facility] [id number] 09:58:14 Test Item Value Reference Range Interpretation Comments POC-GLUCOSE METER 107 mg/dL 70-110 : TESTED A T [facility] 67[address] (BEAKER) (test code = BERTJANNETH R [facility], 1538) [address]: Filtration Operator/Techni raoul ID = [id number] for KIRIT LUGO CBC W/PLT COUNT & AUTO [id number] 09:44:59 Test Item Value Reference Range Interpretation Comments WHITE BLOOD CELL COUNT (BEAKER) 11.2 K/ L 3.5-10.5 H (test code = 775) RED BLOOD CELL COUNT (BEAKER) 3.95 M/ L 4.63-6.08 L (test code = 761) HEMOGLOBIN (BEAKER) (test code = 12.0 GM/DL 13.7-17.5 L 410) HEMATOCRIT (BEAKER) (test code = 38.7 % 40.1-51.0 L 411) MEAN CORPUSCULAR VOLUME (BEAKER) 98.0 fL 79.0-92.2 H (test code = 753) MEAN CORPUSCULAR HEMOGLOBIN 30.4 pg 25.7-32.2 (BEAKER) (test code = 751) MEAN CORPUSCULAR HEMOGLOBIN CONC 31.0 GM/DL 32.3-36.5 L (BEAKER) (test code = 752) RED CELL DISTRIBUTION WIDTH 14.0 % 11.6-14.4 (BEAKER) (test code = 412) PLATELET COUNT (BEAKER) (test 185 K/CU MM 150-450 code = 756) MEAN PLATELET VOLUME (BEAKER) 10.3 fL 9.4-12.4 (test code = 754) NUCLEATED RED BLOOD CELLS 0 /100 WBC 0-0 (BEAKER) (test code = 413) NEUTROPHILS RELATIVE PERCENT 88 % (BEAKER) (test code = 429) LYMPHOCYTES RELATIVE PERCENT 8 % (BEAKER) (test code = 430) MONOCYTES RELATIVE PERCENT 3 % (BEAKER) (test code = 431) EOSINOPHILS RELATIVE PERCENT 0 % (BEAKER) (test code = 432) BASOPHILS RELATIVE PERCENT 0 % (BEAKER) (test code = 437) NEUTROPHILS ABSOLUTE COUNT 9.84 K/ L 1.78-5.38 H (BEAKER) (test code = 670) LYMPHOCYTES ABSOLUTE COUNT 0.87 K/ L 1.32-3.57 L (BEAKER) (test code = 414) MONOCYTES ABSOLUTE COUNT (BEAKER) 0.36 K/ L 0.30-0.82 (test code = 415) EOSINOPHILS ABSOLUTE COUNT 0.05 K/ L 0.04-0.54 (BEAKER) (test code = 416) BASOPHILS ABSOLUTE COUNT (BEAKER) 0.01 K/ L 0.01-0.08 (test code = 417) IMMATURE GRANULOCYTES-RELATIVE 1 % 0-1 PERCENT (BEAKER) (test code = 2801) PROTHROMBIN [id number] 09:44:04 Test Item Value Reference Range Interpretation Comments PROTIME (BEAKER) 12.7 seconds 11.9-14.2 (test code = 759) INR (BEAKER) (test 1.01 See_Comment [Automat ed message] code = 370) The system [employer] generated this result transmitted ref erence range: <=5.90. The reference range was not used to int erpret this result as normal/abnormal . RECOMMENDED COUMADIN/WARFARIN INR THERAPY RANGESSTANDARD DOSE: 2.0 - 3.0 Includes: PROPHYLAXIS for venous thrombosis, systemic embolization; TREATMENT for venous thrombosis and/or pulmonary embolus.HIGH RISK: Target INR is 2.5-3.5 for patients with mechanical heart valves.POCT URINALYSIS [id number] 00:00:00 Test Item Value Reference Range Interpretation Comments COLOR UA (test code = 5778-6) Karon YELLOW/STRAW CLARITY UA (test code = 44204-8) Clear CLEAR GLUCOSE UA (test code = 5792-7) Negative NEGATIVE BILIRUBIN UA (test code = 5770-3) Negative NEGATIVE KETONES UA (test code = 24375-0) Negative NEGATIVE SPECIFIC GRAVITY UA (test code = 1.005-1.035 5811-5) BLOOD UA (test code = 5794-3) Negative NEGATIVE PH UA (test code = 5803-2) 5-9 PROTEIN UA (test code = 5804-0) Trace NEGATIVE UROBILINOGEN UA (test code = 0.02 E.U/DL NORMAL MG/DL 5818-0) LEUKOCYTE ESTERASE UA (test code Negative NEGATIVE = 5799-2) NITRITE UA (test code = 5802-4) Negative NEGATIVE REDUCING SUBSTANCES URINE (test code = 21093-5) [facility], PERC, EXTERNAL [id number] 19:13:00Needs left percutaneous nephrostomy tube placement (NOT PCNU), due to distal obstruction in left ureter. Reason for exam:->[facility] : 1940 Sex: MFINAL REPORT History: Left hydronephrosis. PROCEDURE: Following informed written consent, the patient was placed in a prone position on the angiographic table and his left flank was prepped and draped in the usual sterile manner. 2% lidocaine was given locally for anesthesia. Additionally, the patient received 2 mg IV Versed and 100 mcg IV fentanyl for conscious sedation and pain control. Vital signs were monitored and remained stable. Conscious sedation and continuous patient monitoring were performed by the attending radiologist and a registered nurse for 30 minutes during the procedure. Using a posterior approach and ultrasound guidance, access was gained to a posterior left lower pole calyx. Small amount of contrast was injected through the needle to confirm position. An 018 wire was then advanced through the needle and coiled within the left renal pelvis. An AccuStick sheath was placed. Repeat contrast injection was performed to confirm position of the sheath within the collecting system. A Bentson wire was then placed and coiled within the left renal pelvis. The tract was dilated and an 8 Jordanian pigtail external nephrostomy catheter was placed over the wire and into position within the left renal pelvis under fluoroscopic guidance. The catheter was injected with contrast to confirm its position. The catheter was secured to the skin using 2-0 silk suture and placed to external gravity bag drainage. Overall, the patient tolerated the procedure well without immediate competitions and was discharged from the department in stable condition. FINDINGS: Multiple imagesobtained during the procedure show moderate left-sided hydronephrosis. Following placement of the left external nephrostomy catheter, the catheter tip is noted to lie in expected position, coiled within the dilated left renal pelvis. Limited ultrasound images obtained during the procedure demonstrate moderate left-sided hydronephrosis. These images were archived to PACS. IMPRESSION: 1. Technically successful uncomplicated ultrasound and fluoroscopically guided left external nephrostomy tube placement. Total fluoroscopy time: 1.9 minutes. Estimated total patient is reported as (Ka,r): 63 mGy Signed:Sam Salehepventura Verified Date/Time: 01/07/2022 19:13:35 Reading Location: [place] [address] Angio Body Reading Room Urine [id number] 11:43:21 Test Item Value Reference Range Interpretation Comments Result (test code = 6463-4) [facility] [id number] 11:43:21 Test Item Value Reference Range Interpretation Comments CULTURE (BEAKER) (test code = 1095) No growth POCT-GLUCOSE [id number] 12:05:17 Test Item Value Reference Range Interpretation Comments POC-GLUCOSE METER 111 mg/dL 70-110 H : TESTED A T [facility] 6720 (BEAKER) (test code = [place], 1538) [address]: Filtration Operator/Techni raoul ID = [id number] for ANGELIA BURTON BASIC METABOLIC [id number] 05:57:55 Test Item Value Reference Range Interpretation Comments SODIUM (BEAKER) 136 meq/L 136-145 (test code = 381) POTASSIUM (BEAKER) 4.6 meq/L 3.5-5.1 (test code = 379) CHLORIDE (BEAKER) 107 meq/L 98-107 (test code = 382) CO2 (BEAKER) (test 21 meq/L 22-29 L code = 355) BLOOD UREA NITROGEN 26 mg/dL 7-21 H (BEAKER) (test code = 354) CREATININE (BEAKER) 1.17 mg/dL 0.57-1.25 (test code = 358) GLUCOSE RANDOM 92 mg/dL 70-105 (BEAKER) (test code = 652) CALCIUM (BEAKER) 8.2 mg/dL 8.4-10.2 L (test code = 697) EGFR (BEAKER) (test 60 mL/min/1.73 ESTIMA WENDY GFR IS code = 1092) sq m NOT ACCURATE CREATININE CLEARANCE IN PREDICTING GLOMERULAR FILTRATION RATE . ESTIMATED GFR I S NOT APPLICABLE FOR DIALYSIS PATIEN TS. Filtration Operator ID - PIAYA LCBC W/PLT COUNT & AUTO [id number] 05:37:43 Test Item Value Reference Range Interpretation Comments WHITE BLOOD CELL COUNT (BEAKER) 12.6 K/ L 3.5-10.5 H (test code = 775) RED BLOOD CELL COUNT (BEAKER) 4.00 M/ L 4.63-6.08 L (test code = 761) HEMOGLOBIN (BEAKER) (test code = 11.9 GM/DL 13.7-17.5 L 410) HEMATOCRIT (BEAKER) (test code = 37.9 % 40.1-51.0 L 411) MEAN CORPUSCULAR VOLUME (BEAKER) 94.8 fL 79.0-92.2 H (test code = 753) MEAN CORPUSCULAR HEMOGLOBIN 29.8 pg 25.7-32.2 (BEAKER) (test code = 751) MEAN CORPUSCULAR HEMOGLOBIN CONC 31.4 GM/DL 32.3-36.5 L (BEAKER) (test code = 752) RED CELL DISTRIBUTION WIDTH 16.0 % 11.6-14.4 H (BEAKER) (test code = 412) PLATELET COUNT (BEAKER) (test 148 K/CU MM 150-450 L code = 756) MEAN PLATELET VOLUME (BEAKER) 10.3 fL 9.4-12.4 (test code = 754) NUCLEATED RED BLOOD CELLS 0 /100 WBC 0-0 (BEAKER) (test code = 413) NEUTROPHILS RELATIVE PERCENT 79 % (BEAKER) (test code = 429) LYMPHOCYTES RELATIVE PERCENT 12 % (BEAKER) (test code = 430) MONOCYTES RELATIVE PERCENT 7 % (BEAKER) (test code = 431) EOSINOPHILS RELATIVE PERCENT 1 % (BEAKER) (test code = 432) BASOPHILS RELATIVE PERCENT 0 % (BEAKER) (test code = 437) NEUTROPHILS ABSOLUTE COUNT 9.94 K/ L 1.78-5.38 H (BEAKER) (test code = 670) LYMPHOCYTES ABSOLUTE COUNT 1.56 K/ L 1.32-3.57 (BEAKER) (test code = 414) MONOCYTES ABSOLUTE COUNT (BEAKER) 0.87 K/ L 0.30-0.82 H (test code = 415) EOSINOPHILS ABSOLUTE COUNT 0.09 K/ L 0.04-0.54 (BEAKER) (test code = 416) BASOPHILS ABSOLUTE COUNT (BEAKER) 0.01 K/ L 0.01-0.08 (test code = 417) IMMATURE GRANULOCYTES-RELATIVE 1 % 0-1 PERCENT (BEAKER) (test code = 2801) Gram [id number] 00:56:10 Test Item Value Reference Range Interpretation Comments Gram Stain Result (test No organisms seen code = 1123) [facility] [id number] 00:56:10 Test Item Value Reference Range Interpretation Comments GRAM STAIN RESULT (BEAKER) <1+ WBCs (test code = 1123) GRAM STAIN RESULT (BEAKER) No organisms seen (test code = 23538) BASIC METABOLIC [id number] 05:12:35 Test Item Value Reference Range Interpretation Comments SODIUM (BEAKER) 138 meq/L 136-145 (test code = 381) POTASSIUM (BEAKER) 4.9 meq/L 3.5-5.1 (test code = 379) CHLORIDE (BEAKER) 105 meq/L 98-107 (test code = 382) CO2 (BEAKER) (test 25 meq/L 22-29 code = 355) BLOOD UREA NITROGEN 32 mg/dL 7-21 H (BEAKER) (test code = 354) CREATININE (BEAKER) 1.24 mg/dL 0.57-1.25 (test code = 358) GLUCOSE RANDOM 101 mg/dL 70-105 (BEAKER) (test code = 652) CALCIUM (BEAKER) 8.3 mg/dL 8.4-10.2 L (test code = 697) EGFR (BEAKER) (test 56 mL/min/1.73 ESTIMA WENDY GFR IS code = 1092) sq m NOT ACCURATE CREATININE CLEARANCE IN PREDICTING GLOMERULAR FILTRATION RATE . ESTIMATED GFR I S NOT APPLICABLE FOR DIALYSIS PATIEN TS. Filtration Operator ID - PIAYA LCBC W/PLT COUNT & AUTO [id number] 04:30:47 Test Item Value Reference Range Interpretation Comments WHITE BLOOD CELL COUNT (BEAKER) 15.0 K/ L 3.5-10.5 H (test code = 775) RED BLOOD CELL COUNT (BEAKER) 4.35 M/ L 4.63-6.08 L (test code = 761) HEMOGLOBIN (BEAKER) (test code = 13.1 GM/DL 13.7-17.5 L 410) HEMATOCRIT (BEAKER) (test code = 41.1 % 40.1-51.0 411) MEAN CORPUSCULAR VOLUME (BEAKER) 94.5 fL 79.0-92.2 H (test code = 753) MEAN CORPUSCULAR HEMOGLOBIN 30.1 pg 25.7-32.2 (BEAKER) (test code = 751) MEAN CORPUSCULAR HEMOGLOBIN CONC 31.9 GM/DL 32.3-36.5 L (BEAKER) (test code = 752) RED CELL DISTRIBUTION WIDTH 16.0 % 11.6-14.4 H (BEAKER) (test code = 412) PLATELET COUNT (BEAKER) (test 155 K/CU MM 150-450 code = 756) MEAN PLATELET VOLUME (BEAKER) 10.0 fL 9.4-12.4 (test code = 754) NUCLEATED RED BLOOD CELLS 0 /100 WBC 0-0 (BEAKER) (test code = 413) NEUTROPHILS RELATIVE PERCENT 84 % (BEAKER) (test code = 429) LYMPHOCYTES RELATIVE PERCENT 9 % (BEAKER) (test code = 430) MONOCYTES RELATIVE PERCENT 6 % (BEAKER) (test code = 431) EOSINOPHILS RELATIVE PERCENT 0 % (BEAKER) (test code = 432) BASOPHILS RELATIVE PERCENT 0 % (BEAKER) (test code = 437) NEUTROPHILS ABSOLUTE COUNT 12.62 K/ L 1.78-5.38 H (BEAKER) (test code = 670) LYMPHOCYTES ABSOLUTE COUNT 1.30 K/ L 1.32-3.57 L (BEAKER) (test code = 414) MONOCYTES ABSOLUTE COUNT (BEAKER) 0.83 K/ L 0.30-0.82 H (test code = 415) EOSINOPHILS ABSOLUTE COUNT 0.06 K/ L 0.04-0.54 (BEAKER) (test code = 416) BASOPHILS ABSOLUTE COUNT (BEAKER) 0.02 K/ L 0.01-0.08 (test code = 417) IMMATURE GRANULOCYTES-RELATIVE 1 % 0-1 PERCENT (BEAKER) (test code = 2801) Urinalysis w/Microscopic + Reflex to [id number] 23:36:22 Test Item Value Reference Range Interpretation Comments Color, UA (test code Yellow = 5778-6) Clarity, UA (test Clear code = 5767-9) Specific [place], UA 1.043 1.001-1.035 H (test code = 5811-5) pH, UA (test code = 6.0 5.0-8.0 5803-2) Protein, UA (test 20 mg/dL Negative A code = 66320-6) Glucose, UA (test Negative Negative code = 365) Ketones, UA (test Negative Negative code = 2514-8) Bilirubin, UA (test Negative Negative code = 64277-7) Blood, UA (test code Negative Negative = 67130-5) Nitrite, UA (test Negative Negative code = 5802-4) Leukocytes, UA (test Negative Negative code = 5799-2) Urobilinogen, UA 0.2 mg/dL 0.2-1.0 (test code = 77761-6) RBC, UA (test code = 1 See_Comment [Autom ated 23362-3) message] The system which generated this result transmit wendy reference range : /HPF. The reference range was not used to interpret this result as normal/abnormal . WBC, UA (test code = 2 See_Comment [Autom ated 5821-4) message] The system which generated this result transmit wendy reference range : /HPF. The reference range was not used to interpret this result as normal/abnormal . Bacteria, UA (test None Seen code = 12768-6) Crystals, Urine (test None Seen code = 66849-1) Specimen Source (test code = 2795) BOB (test code = BOB) Filtration Operator ID - [auto]Filtration Operator ID - tech Lab Interpretation Abnormal (test code = 56266-0) [facility] [id number] 23:36:22 Test Item Value Reference Range Interpretation Comments COLOR (BEAKER) (test code = 470) Yellow CLARITY (BEAKER) (test code = 469) Clear SPECIFIC GRAVITY UA (BEAKER) (test 1.043 1.001-1.035 H code = 468) PH UA (BEAKER) (test code = 467) 6.0 5.0-8.0 PROTEIN UA (BEAKER) (test code = 20 mg/dL Negative A 464) GLUCOSE UA (BEAKER) (test code = Negative Negative 365) KETONES UA (BEAKER) (test code = Negative Negative 371) BILIRUBIN UA (BEAKER) (test code = Negative Negative 462) BLOOD UA (BEAKER) (test code = 461) Negative Negative NITRITE UA (BEAKER) (test code = Negative Negative 465) LEUKOCYTE ESTERASE UA (BEAKER) Negative Negative (test code = 466) UROBILINOGEN UA (BEAKER) (test code 0.2 mg/dL 0.2-1.0 = 463) RBC UA (BEAKER) (test code = 519) 1 /HPF WBC UA (BEAKER) (test code = 520) 2 /HPF BACTERIA (BEAKER) (test code = 517) None Seen CRYSTALS, URINE (BEAKER) (test code None Seen = 1521) SOURCE(BEAKER) (test code = 2795) Filtration Operator ID - [auto]Filtration Operator ID - techCOMPREHENSIVE METABOLIC [id number] 23:07:39 Test Item Value Reference Range Interpretation Comments TOTAL PROTEIN 5.8 gm/dL 6.0-8.3 L (BEAKER) (test code = 770) ALBUMIN (BEAKER) 3.3 g/dL 3.5-5.0 L (test code = 1145) ALKALINE PHOSPHATASE 39 U/L 40-150 L (BEAKER) (test code = 346) BILIRUBIN TOTAL 1.2 mg/dL 0.2-1.2 (BEAKER) (test code = 377) SODIUM (BEAKER) (test 136 meq/L 136-145 code = 381) POTASSIUM (BEAKER) 4.8 meq/L 3.5-5.1 (test code = 379) CHLORIDE (BEAKER) 104 meq/L 98-107 (test code = 382) CO2 (BEAKER) (test 23 meq/L 22-29 code = 355) BLOOD UREA NITROGEN 34 mg/dL 7-21 H (BEAKER) (test code = 354) CREATININE (BEAKER) 1.32 mg/dL 0.57-1.25 H (test code = 358) GLUCOSE RANDOM 123 mg/dL 70-105 H (BEAKER) (test code = 652) CALCIUM (BEAKER) 8.5 mg/dL 8.4-10.2 (test code = 697) AST (SGOT) (BEAKER) 20 U/L 5-34 (test code = 353) ALT (SGPT) (BEAKER) 36 U/L 6-55 (test code = 347) EGFR (BEAKER) (test 52 mL/min/1.73 ESTIMA WENDY GFR IS code = 1092) sq m NOT ACCURATE CREATININE CLEARANCE IN PREDICTING GLOMERULAR FILTRATION RATE . ESTIMATED GFR I S NOT APPLICABLE FOR DIALYSIS PATIEN TS. Filtration Operator ID - DBCBC W/PLT COUNT & AUTO [id number] 23:06:50 Test Item Value Reference Range Interpretation Comments WHITE BLOOD CELL COUNT (BEAKER) 14.7 K/ L 3.5-10.5 H (test code = 775) RED BLOOD CELL COUNT (BEAKER) 4.72 M/ L 4.63-6.08 (test code = 761) HEMOGLOBIN (BEAKER) (test code = 14.1 GM/DL 13.7-17.5 410) HEMATOCRIT (BEAKER) (test code = 44.2 % 40.1-51.0 411) MEAN CORPUSCULAR VOLUME (BEAKER) 93.6 fL 79.0-92.2 H (test code = 753) MEAN CORPUSCULAR HEMOGLOBIN 29.9 pg 25.7-32.2 (BEAKER) (test code = 751) MEAN CORPUSCULAR HEMOGLOBIN CONC 31.9 GM/DL 32.3-36.5 L (BEAKER) (test code = 752) RED CELL DISTRIBUTION WIDTH 15.9 % 11.6-14.4 H (BEAKER) (test code = 412) PLATELET COUNT (BEAKER) (test 176 K/CU MM 150-450 code = 756) MEAN PLATELET VOLUME (BEAKER) 9.6 fL 9.4-12.4 (test code = 754) NUCLEATED RED BLOOD CELLS 0 /100 WBC 0-0 (BEAKER) (test code = 413) NEUTROPHILS RELATIVE PERCENT 87 % (BEAKER) (test code = 429) LYMPHOCYTES RELATIVE PERCENT 7 % (BEAKER) (test code = 430) MONOCYTES RELATIVE PERCENT 5 % (BEAKER) (test code = 431) EOSINOPHILS RELATIVE PERCENT 0 % (BEAKER) (test code = 432) BASOPHILS RELATIVE PERCENT 0 % (BEAKER) (test code = 437) NEUTROPHILS ABSOLUTE COUNT 12.81 K/ L 1.78-5.38 H (BEAKER) (test code = 670) LYMPHOCYTES ABSOLUTE COUNT 0.98 K/ L 1.32-3.57 L (BEAKER) (test code = 414) MONOCYTES ABSOLUTE COUNT (BEAKER) 0.80 K/ L 0.30-0.82 (test code = 415) EOSINOPHILS ABSOLUTE COUNT 0.03 K/ L 0.04-0.54 L (BEAKER) (test code = 416) BASOPHILS ABSOLUTE COUNT (BEAKER) 0.01 K/ L 0.01-0.08 (test code = 417) IMMATURE GRANULOCYTES-RELATIVE 1 % 0-1 PERCENT (BEAKER) (test code = 2801) [id number] 23:01:04 Test Item Value Reference Range Interpretation Comments PROTIME (BEAKER) (test 13.0 seconds 11.9-14.2 code = 759) INR (BEAKER) (test 1.00 See_Comment [Automat ed code = 370) message] The sy stem which generated this result transmitted reference range : <=5.90. The reference range was not used to interpret this result as normal/abnormal . PARTIAL THROMBOPLASTIN 24.1 seconds 22.5-36.0 TIME (BEAKER) (test code = 760) RECOMMENDED COUMADIN/WARFARIN INR THERAPY RANGESSTANDARD DOSE: 2.0 - 3.0 Includes: PROPHYLAXIS for venous thrombosis, systemic embolization; TREATMENT for venous thrombosis and/or pulmonary embolus.HIGH RISK: Target INR is 2.5-3.5 for patients with mechanical heart valves.PROTHROMBIN [id number] 23:00:22 Test Item Value Reference Range Interpretation Comments PROTIME (BEAKER) 13.0 seconds 11.9-14.2 (test code = 759) INR (BEAKER) (test 1.00 See_Comment [Automat ed message] code = 370) The system [employer] generated this result transmitted ref erence range: <=5.90. The reference range was not used to int erpret this result as normal/abnormal . RECOMMENDED COUMADIN/WARFARIN INR THERAPY RANGESSTANDARD DOSE: 2.0 - 3.0 Includes: PROPHYLAXIS for venous thrombosis, systemic embolization; TREATMENT for venous thrombosis and/or pulmonary embolus.HIGH RISK: Target INR is 2.5-3.5 for patients with mechanical heart valves.URINE AND [id number] 19:16:00 Test Item Value Reference Range Interpretation Comments UA Color (test code = UA Color) YELLOW [facility] AND [id number] 19:16:00 Test Item Value Reference Range Interpretation Comments UA Turbidity (test code = UA CLOUDY Turbidity) [facility] AND [id number] 19:16:00 Test Item Value Reference Range Interpretation Comments UA Spec Grav (test code = UA Spec 1.016 1 1.001-1.035 Grav) [facility] AND [id number] 19:16:00 Test Item Value Reference Range Interpretation Comments UA pH (test code = UA pH) 6.5 1 5.0-8.0 [facility] [id number] 19:16:00 Test Item Value Reference Range Interpretation Comments UA Glucose (test code = UA Glucose) NEGATIVE [facility] [id number] 19:16:00 Test Item Value Reference Range Interpretation Comments UA Bili (test code = UA Bili) NEGATIVE [facility] [id number] 19:16:00 Test Item Value Reference Range Interpretation Comments UA Ketones (test code = UA Ketones) NEGATIVE [facility] [id number] 19:16:00 Test Item Value Reference Range Interpretation Comments UA Blood (test code = UA Blood) TRACE [facility] [id number] 19:16:00 Test Item Value Reference Range Interpretation Comments UA Protein (test code = UA Protein) TRACE [facility] [id number] 19:16:00 Test Item Value Reference Range Interpretation Comments UA Nitrite (test code = UA Nitrite) NEGATIVE [facility] [id number] 19:16:00 Test Item Value Reference Range Interpretation Comments UA Leuk Est (test code = UA Leuk NEGATIVE Est) [facility] [id number] 19:16:00 Test Item Value Reference Range Interpretation Comments UA WBC (test code = UA WBC) 6-10 [facility] [id number] 19:16:00 Test Item Value Reference Range Interpretation Comments UA RBC (test code = UA RBC) 3-10 [facility] [id number] 19:16:00 Test Item Value Reference Range Interpretation Comments UA Sq Epi (test code = UA Sq Epi) 0-5 [facility] [id number] 19:16:00 Test Item Value Reference Range Interpretation Comments UA Bacteria (test code = UA Bacteria) MANY [facility] [id number] 19:16:00 Test Item Value Reference Range Interpretation Comments UA Hyal Cast (test code = UA Hyal Cast) 0-5 [facility] [id number] 19:16:00 Test Item Value Reference Range Interpretation Comments UA Reflex (test code = UA Reflex) [facility]MENT [id number] 10:40:00 Test Item Value Reference Range Interpretation Comments POC-CREATININE 0.9 mg/dL 0.6-1.3 TESTED AT [facility] MC-KG (BEAKER) (test [address] [facility] code = 1859) [place] [address] POC-EGFR 82 mL/min/1.73M2 (BEAKER) (test code = 1860) BASIC METABOLIC [id number] 09:21:00 Test Item Value Reference Range Interpretation Comments SODIUM (BEAKER) 139 meq/L 136-145 (test code = 381) POTASSIUM (BEAKER) 4.0 meq/L 3.5-5.1 (test code = 379) CHLORIDE (BEAKER) 108 meq/L 98-107 H (test code = 382) CO2 (BEAKER) (test 22 meq/L 22-29 code = 355) BLOOD UREA NITROGEN 19 mg/dL 7-21 (BEAKER) (test code = 354) CREATININE (BEAKER) 1.12 mg/dL 0.57-1.25 (test code = 358) GLUCOSE RANDOM 113 mg/dL 70-105 H (BEAKER) (test code = 652) CALCIUM (BEAKER) 9.1 mg/dL 8.4-10.2 (test code = 697) EGFR (BEAKER) (test mL/min/1.73 INSUFFIC IENT CLINICAL code = 1092) sq m DATA TO CALCULA TE ESTIMATED GFR. CREATINE KINASE (CK), TOTAL AND [id number] 08:57:00 Test Item Value Reference Range Interpretation Comments CREATINE KINASE TOTAL (BEAKER) 128 U/L 29-200 (test code = 380) CREATINE KINASE-MB (BEAKER) (test 3.6 ng/mL 0.0-6.6 code = 750) CREATINE KINASE-MB INDEX (BEAKER) 2.8 % (test code = 395) Effective 07/30/2014: CK-MB Reference Range ChangeNew: 0.0-6.6 Previous: 0.0-4.9CK-MB Reference Range:<6.7 Normal6.7-10.0 Borderline>10.0 Abnormal TROPONIN [id number] 08:57:00 Test Item Value Reference Range Interpretation Comments TROPONIN I (BEAKER) (test code = 397) < ng/mL 0.00-0.03 Effective 07/30/2014: Reference Range ChangeNew: 0.00-0.03 Previous 0.00- 0.15Troponin I (TnI) levelsmust be interpreted in the context of the presenting symptoms and the clinical findings. Elevated TnI levels indicate myocardial damage, but are not specific for ischemic heart disease. Elevated TnI levels are seen in patients with other cardiac conditions (including myocarditis and congestive heart failure), and slight TnI elevations occur in patients with other conditions, including sepsis, renal failure, acidosis, acute neurological disease, and persistent tachyarrhythmia.B-TYPE NATRIURETIC FACTOR (BNP) 2017-03-20 08:56:00 Test Item Value Reference Range Interpretation Comments B-TYPE NATRIURETIC PEPTIDE (BEAKER) 29 pg/mL 0-100 (test code = 700) [id number] 08:50:00 Test Item Value Reference Range Interpretation Comments MAGNESIUM (BEAKER) (test code = 2.1 mg/dL 1.6-2.6 627) [id number] 08:47:00 Test Item Value Reference Range Interpretation Comments PROTIME (BEAKER) (test code = 12.8 seconds 11.7-14.7 759) INR (BEAKER) (test code = 370) 1.0 <=5.9 PARTIAL THROMBOPLASTIN TIME 26.9 seconds 22.5-36.0 (BEAKER) (test code = 760) RECOMMENDED COUMADIN/WARFARIN INR THERAPY RANGESSTANDARD DOSE: 2.0 - 3.0 Includes: PROPHYLAXIS for venous thrombosis, systemic embolization; TREATMENT for venous thrombosis and/or pulmonary embolus.HIGH RISK: Target INR is 2.5-3.5 for patients with mechanical heart valves.CBC W/PLT COUNT & AUTO [id number] 08:36:00 Test Item Value Reference Range Interpretation Comments WHITE BLOOD CELL COUNT (BEAKER) 10.2 K/ L 4.0-10.0 H (test code = 775) RED BLOOD CELL COUNT (BEAKER) 5.04 M/ L 4.20-5.80 (test code = 761) HEMOGLOBIN (BEAKER) (test code = 15.9 GM/DL 13.0-16.8 410) HEMATOCRIT (BEAKER) (test code = 47.1 % 40.0-50.0 411) MEAN CORPUSCULAR VOLUME (BEAKER) 93.6 fL 82.0-98.0 (test code = 753) MEAN CORPUSCULAR HEMOGLOBIN 31.6 pg 27.0-33.0 (BEAKER) (test code = 751) MEAN CORPUSCULAR HEMOGLOBIN CONC 33.8 GM/DL 32.0-36.0 (BEAKER) (test code = 752) RED CELL DISTRIBUTION WIDTH 12.5 % 10.3-14.2 (BEAKER) (test code = 412) PLATELET COUNT (BEAKER) (test 141 K/CU MM 150-430 L code = 756) MEAN PLATELET VOLUME (BEAKER) 7.8 fL 6.5-10.5 (test code = 754) NUCLEATED RED BLOOD CELLS 0 /100 WBC 0-0 (BEAKER) (test code = 413) NEUTROPHILS RELATIVE PERCENT 69 % (BEAKER) (test code = 429) LYMPHOCYTES RELATIVE PERCENT 22 % (BEAKER) (test code = 430) MONOCYTES RELATIVE PERCENT 7 % (BEAKER) (test code = 431) EOSINOPHILS RELATIVE PERCENT 2 % (BEAKER) (test code = 432) BASOPHILS RELATIVE PERCENT 0 % (BEAKER) (test code = 437) NEUTROPHILS ABSOLUTE COUNT 7.00 K/ L 1.80-8.00 (BEAKER) (test code = 670) LYMPHOCYTES ABSOLUTE COUNT 2.23 K/ L 1.48-4.50 (BEAKER) (test code = 414) MONOCYTES ABSOLUTE COUNT (BEAKER) 0.76 K/ L 0.00-1.30 (test code = 415) EOSINOPHILS ABSOLUTE COUNT 0.21 K/ L 0.00-0.50 (BEAKER) (test code = 416) BASOPHILS ABSOLUTE COUNT (BEAKER) 0.03 K/ L 0.00-0.20 (test code = 417) 0.00
[2022-05-20] MEDS ORDERED: ONDANSETRON 4 MG (ODT) TAB PO PRN (18:10)
[2022-05-20] MEDS ORDERED: HYDROCODONE/APAP 5/325 MG TAB PO PRN (18:10)
[2022-05-20] MEDS ORDERED: CARBIDOPA/LEVODOPA 25/100 TAB PO SCH (20:00)
[2022-05-20] MEDS: AMOX/K CLAV 875 MG TAB PO SCH (20:04)
[2022-05-20] MEDS: CARBIDOPA/LEVODOPA 25/100 TAB PO SCH (20:04)
[2022-05-20] MEDS: TAMSULOSIN 0.4 MG SR CAP PO SCH (20:04)
[2022-05-20] MEDS: HYDRALAZINE HCL 25 MG TABLET PO SCH (20:04)
[2022-05-20 21:50] LABS: Specific Gravity 1.015 (1.005-1.030); Urine Bilirubin Negative (Negative); Urine Blood 3+ (Negative); Urine Glucose Negative (Negative); Urine Protein 2+ (Negative); Urine Urobilinogen 0.2 mg/dL (0.2-1.0)
[2022-05-20 21:57] LABS: Urine Clarity Slightly Cloudy (Clear); Urine Color Light-Red (Yellow)
[2022-05-20 22:11] LABS: Urine Bacteria >50 /HPF (<20); Urine RBC >50 /HPF (None Seen)
[2022-05-20 22:31] VITALS: BMI 29.9
[2022-05-20 23:23] LABS: Specific Gravity 1.007 (1.005-1.030); Urine Bilirubin Negative (Negative); Urine Clarity Extremely Turbid (Clear); Urine Color Red (Yellow); Urine Glucose Negative (Negative)
[2022-05-20 23:24] LABS: Urine Blood 3+ (OVER) (Negative); Urine Protein 3+ (Negative); Urine Urobilinogen Normal mg/dL (0.2-1.0)
[2022-05-20 23:25] LABS: Urine Bacteria 20-50 /HPF (<20); Urine RBC >50 /HPF (None Seen)
[2022-05-21 06:15] LABS: Absolute Lymphocytes (CBC) 1.1 K/uL (0.7-4.9); Hematocrit 32.9 % (39.6-49.0); Lymphocytes % 14.1 % (15.3-44.8); MCV 94.2 fL (80-100); MPV 7.8 fL (7.6-11.3); RBC Red Blood Cell Count 3.49 M/uL (4.33-5.43)
[2022-05-21 06:50] LABS: Albumin 2.4 g/dL (3.4-5.0); Magnesium 2.3 mg/dL (1.8-2.4)
[2022-05-21 07:35] LABS: Prealbumin 21.8 mg/dL (20-40)
[2022-05-21] MEDS: HYDRALAZINE HCL 25 MG TABLET PO SCH ×3 (08:00→20:00)
[2022-05-21] MEDS ORDERED: lisinopriL 20 MG TAB PO SCH ×2 (08:00→10:34)
[2022-05-21] MEDS ORDERED: predniSONE 20 MG TAB PO SCH (08:00)
[2022-05-21] MEDS ORDERED: FUROSEMIDE 20 MG TABLET PO SCH (08:00)
[2022-05-21] MEDS ORDERED: METOPROLOL XL 50 MG TAB PO SCH (08:00)
[2022-05-21] MEDS: AMOX/K CLAV 875 MG TAB PO SCH ×2 (08:39→20:33)
[2022-05-21] MEDS: GABAPENTIN 100 MG CAP PO SCH ×3 (08:43→17:14)
[2022-05-21] MEDS: CARBIDOPA/LEVODOPA 25/100 TAB PO SCH ×2 (08:44→20:34)
[2022-05-21] MEDS: predniSONE 20 MG TAB PO SCH (08:45)
[2022-05-21] MEDS: POTASSIUM CL SA 10 MEQ TAB PO SCH (08:46)
[2022-05-21] MEDS: ACETAMINOPHEN 500 MG TAB PO PRN (08:55)
--- NOTE | 2022-05-21 09:52 | P.RH.PN ---
Estimated Length of Stay: 12 Expected Discharge Date: 05/31/22 Discharge Disposition Plan: Home Family Support: Yes Vital Signs: Last Vital Signs Temp 97.2 F 05/21/22 07:40 Pulse 92 H 05/21/22 08:43 Resp 18 05/21/22 07:40 BP 154/72 H 05/21/22 08:43 Pulse Ox 100 05/21/22 07:40 Laboratory: Laboratory Last Values WBC 7.50 K/uL (4.3-10.9) 05/21/22 06:00 RBC 3.49 M/uL (4.33-5.43) L 05/21/22 06:00 Hgb 11.0 g/dL (13.6-17.9) L 05/21/22 06:00 Hct 32.9 % (39.6-49.0) L 05/21/22 06:00 MCV 94.2 fL (80-100) 05/21/22 06:00 MCH 31.6 pg (27.0-35.0) 05/21/22 06:00 MCHC 33.6 g/dL (32.0-36.0) 05/21/22 06:00 RDW 15.0 % (12.1-15.2) 05/21/22 06:00 Plt Count 165 K/uL (152-406) 05/21/22 06:00 MPV 7.8 fL (7.6-11.3) 05/21/22 06:00 Neutrophils % 82.8 % (41.7-73.7) H 05/21/22 06:00 Lymphocytes % 14.1 % (15.3-44.8) L 05/21/22 06:00 Monocytes % 1.8 % (3.3-12.3) L 05/21/22 06:00 Eosinophils % 1.0 % (0-4.4) 05/21/22 06:00 Basophils % 0.3 % (0-1.3) 05/21/22 06:00 Absolute Neutrophils 6.2 K/uL (1.8-8.0) 05/21/22 06:00 Absolute Lymphocytes 1.1 K/uL (0.7-4.9) 05/21/22 06:00 Absolute Monocytes 0.1 K/uL (0.1-1.3) 05/21/22 06:00 Absolute Eosinophils 0.1 K/uL (0-0.5) 05/21/22 06:00 Absolute Basophils 0.0 K/uL (0-0.5) 05/21/22 06:00 Sodium 139 mmol/L (136-145) 05/21/22 06:00 Potassium 4.0 mmol/L (3.5-5.1) 05/21/22 06:00 Chloride 106 mmol/L (98-107) 05/21/22 06:00 Carbon Dioxide 29 mmol/L (21-32) 05/21/22 06:00 Anion Gap 8.0 mEq/L (5.0-15.0) 05/21/22 06:00 BUN 19 mg/dL (7-18) H 05/21/22 06:00 Creatinine 1.20 mg/dL (0.55-1.3) 05/21/22 06:00 Est GFR (CKD-EPI) 61 ml/min (=/>90) L 05/21/22 06:00 Glucose 97 mg/dL (74-106) 05/21/22 06:00 Calcium 8.5 mg/dL (8.5-10.1) 05/21/22 06:00 Magnesium 2.3 mg/dL (1.8-2.4) 05/21/22 06:00 Albumin 2.4 g/dL (3.4-5.0) L 05/21/22 06:00 Prealbumin 21.8 mg/dL (20-40) 05/21/22 06:00 Urine Color Light-red (Yellow) 05/20/22 21:47 Urine Clarity Slightly cloudy (Clear) 05/20/22 21:47 Urine pH 7.0 (5.0-7.0) 05/20/22 21:47 Ur Specific [place] 1.015 (1.005-1.030) 05/20/22 21:47 Glucose (UA)(Auto) Negative (Negative) 05/20/22 21:47 Urine Ketones Negative (Negative) 05/20/22 21:47 Urine Blood 3+ (Negative) H 05/20/22 21:47 Urine Nitrite Negative (Negative) 05/20/22 21:47 Urine Bilirubin Negative (Negative) 05/20/22 21:47 Urine Urobilinogen 0.2 mg/dL (0.2-1.0) 05/20/22 21:47 Ur Leukocyte Esterase 1+ (Negative) H 05/20/22 21:47 Urine RBC >50 /HPF (None Seen) H 05/20/22 21:47 Urine Red Cell Clumps Cancelled 05/20/22 20:25 Urine WBC 5-10 /HPF (<5) 05/20/22 21:47 Urine WBC Clumps Cancelled 05/20/22 20:25 Ur Squamous Epith Cells <5 /HPF (None Seen) 05/20/22 21:47 U Non-Squamous Epi Cells Cancelled 05/20/22 20:25 Ur Transition Epith Cell Cancelled 05/20/22 20:25 Ur Renal Epithelial Cell Cancelled 05/20/22 20:25 Calcium Carbonate Cryst Cancelled 05/20/22 20:25 Calcium Oxalate Crystal Cancelled 05/20/22 20:25 Leucine Crystals Cancelled 05/20/22 20:25 Cystine Crystals Cancelled 05/20/22 20:25 Uric Acid Crystals Cancelled 05/20/22 20:25 Triple Phos Crystals Cancelled 05/20/22 20:25 Tyrosine Crystals Cancelled 05/20/22 20:25 Unidentified Crystals Cancelled 05/20/22 20:25 Amorphous Crystals Cancelled 05/20/22 20:25 Urine Bacteria >50 /HPF (<20) H 05/20/22 21:47 Hyaline Casts Cancelled 05/20/22 20:25 Granular Casts Cancelled 05/20/22 20:25 Waxy Casts Cancelled 05/20/22 20:25 RBC Casts Cancelled 05/20/22 20:25 WBC Casts Cancelled 05/20/22 20:25 Urine Mucus Cancelled 05/20/22 20:25 Urine Trichomonas Cancelled 05/20/22 20:25 Ur Yeast w Hyphae Cancelled 05/20/22 20:25 Urine Yeast (Budding) Cancelled 05/20/22 20:25 Urine Sperm Cancelled 05/20/22 20:25 Ur Oval Fat Bodies Cancelled 05/20/22 20:25 Urine Total Protein 2+ (Negative) H 05/20/22 21:47 Urine Ascorbic Acid Cancelled 05/20/22 20:25 Urine Fat Cancelled 05/20/22 20:25 Weight: 215 lb Wound Present: No Physician Update: Labs were reviewed. 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 He had a nephrostomy tube inserted in April and is debilitated. He will be evaluated with PT and OT. Comment: noted redness at bottom , on air mattress Summary: Patient's care plan and care home goals have been reviewed and revised as necessary. Please see the Rehabilitation Signature page for all necessary signatures.
[2022-05-21] MEDS ORDERED: HYDRALAZINE HCL 25 MG TABLET PO SCH (11:00)
--- NOTE | 2022-05-21 14:08 | R.HP ---
HISTORY AND PHYSICAL FACILITY: [facility] ENCOUNTER DATE AND TIME: 05/21/2022 14:01 (CDT) MR#: [id number] NAME BENITEZ REBOLLEDO ADDRESS: [address] [place] [address] CITY: [place] [address]IP [id number] PHONE: DATE OF : 1940 AGE: 81 SSN# [id number] GENDER: Male DEXTERITY Unknown dexterity MARITAL STATUS PRE-HOSPITAL LIVING SETTING 01 - Home (private home/apt. board/care, assisted living, nursing home, transitional living) PRE-HOSPITAL LIVING WITH Family/Relatives ENCOUNTER PHYSICIAN: Dr. Fred Mayorga M.D. REFERRING DOCTOR: christina Jett DATE OF ADMISSION: 05/20/2022 17:51 (CDT) REFERRING FACILITY [facility] HOME TYPE AND DETAILS: Type of home: single family house # of levels in the residence: 1 # of steps to enter the residence: 2 # of steps within the residence: 0 ONSET DATE: 05/18/2022 PRIMARY DIAGNOSIS-RELATED SURGERIES: TUR of bladder tumor SECONDARY/COMORBID DIAGNOSES (TIERED): - Non-Tiered Parkinson's disease (G20) Neuropathy HISTORY OF PRESENT ILLNESS (HPI): Pt. is a 81 yo WM. On 05/18/2022 he was admitted to [facility] with diagnosis Operative Antegrade Ureteroscop y and Biopsy with INTR. His impairment category is Debility 16 - Debility (16). Pre-morbidly, Pt. was independent/mod-I in Locomotion and Self-Care; and he had good Endurance, Trans fers Control, Balance, and Safety Awareness. Currently, he has deficits of Locomotion, Safety Awareness, Balance, Transfers Control, Self-Care, an d Endurance. Pt. is now referred to [facility] for acute in-patient rehabilitation in order to maximize patient's functional independence in activities of daily living, strength, ROM, and mobi lity. Patient has realistic goal of being discharged at assistance level 6-Guilherme to reside at Home with Fam bina/Relatives. 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 Per PT, pt is dependent with bed mobility, transfers and gait and has d ecreased endurance, strength, balance and safety. Due to the decline in the patients condition he is not currently safe to remain in his current living arrangement due to reductions in balance, strength, endurance, and an inability to independently perform the necessary activities of daily living and self-care required. Pt is at risk for skin breakdown, DVT, pain, falls, stroke and infections. Our goal is for the patient to become stronger in order for him to safely return home and live independently. Patient would most directly benefit from aggressive 3 hours of daily therapy split between physical therapy and occupational therapy as well as speech therapy if warranted in the acute inpatient rehab setting. He is medically stable with relatively stable labs. He will require 24 hour nursing, doctor supervision and oversight while receiving condition and PHM. The patient is reasonably expected to participate in 3 hours of therapy a day/15 hours per week and receive care with an intensive interdisciplinary approach. COVID-19 screening performed; Patient denies new onset of fever, cough, difficulty breathing, sore throat, body aches and non-allergy nasal congestion in the past 24 hours. Patient denies travel outside of [place] in the past 14 days. Patient denies any contact with someone who has a confirmed diagnosis of or is under investigation for COVID-19 in the past 14 days. MEDICATION ALLERGIES: No Known Drug Allergies (NKDA) ENVIRONMENTAL ALLERGIES: - Substance Allergies None Known - Other Allergies None Known PAST MEDICAL HISTORY: Neuropathy Parkinson's disease (G20) SOCIAL HISTORY: - Home Living Family/Relatives REVIEW OF SYSTEMS: - Gen No Chills Fatigue No Fever - Eyes No Double Vision No itchiness - ENMT No Difficulty Swallowing - CVS No Chest Discomfort No Chest Pain Fatigue No Weight Gain - Resp No Cough No Shortness of Breath - GI Continent No Abdominal Pain No Constipation No Diarrhea - Continent No Kidney Pain No Painful Urination No Urinary Urgency - MSK No Joint Pain No Muscle Cramps Stiffness - Skin No Itching No Rash No Suspicious Lesions - Neuro No Coordination Difficulty Difficulty with Concentration Memory Loss No Seizures Weakness - Psych No Anxiety No Depression No HIV Exposure No Persistent Infections No Seasonal Allergies - Endo No Cold/Heat Intolerance No Excessive Hunger No Excessive Thirst No Excessive Urination PHYSICAL EXAM - Gen Alert and awake Lying in bed No apparent distress Oriented to: person, time, and place - Skin No skin breakdown. Normacephalic - Eyes No abnormalities - ENMT No abnormalities - Neck No abnormalities - CVS RRR - Chest No abnormalities - Resp No wheezing - Abd Soft - GI Non distended Deferred - No abnormalities - Ext Mild bilateral lower extremity edema. - MSK 4+/5 weakness in both lower extremities. - Neuro No focal deficits - Psych Mild anxiety. VITAL SIGNS Temperature: 97.2 F SBP/DBP: 93to 154/50 to 72 Pulse: 100 Resp: 16 NURSING: - Shower allowing shower ACTIVITIES OOB only with supervision QI SCORES: - Self-Care A. Eating 05-Setup or clean-up assistance B. Oral hygiene 05-Setup or clean-up assistance C. Toileting hygiene 03-Partial/moderate assistance E. Shower/bathe self 03-Partial/moderate assistance F. Upper body dressing 04-Supervision or touching assistance G. Lower body dressing 03-Partial/moderate assistance H. Putting on/taking off footwear 03-Partial/moderate assistance - Mobility A. Roll left and right 02-Substantial/maximal assistance B. Sit to lying 02-Substantial/maximal assistance C. Lying to sitting on side of bed 02-Substantial/maximal assistance D. Sit to stand 03-Partial/moderate assistance E. Chair/pzy-up-sneur transfer 03-Partial/moderate assistance F. Toilet transfer 03-Partial/moderate assistance G. Car transfer 88-Not attempted due to medical condition or safety concerns I. Walk 10 feet 03-Partial/moderate assistance J. Walk 50 feet with two turns 03-Partial/moderate assistance K. Walk 150 feet 88-Not attempted due to medical condition or safety concerns L. Walking 10 feet on uneven surfaces 88-Not attempted due to medical condition or safety concerns M. 1 step (curb) 88-Not attempted due to medical condition or safety concerns N. 4 steps 88-Not attempted due to medical condition or safety concerns O. 12 steps 88-Not attempted due to medical condition or safety concerns P. Picking up object 88-Not attempted due to medical condition or safety concerns R. Wheel 50 feet with two turns 88-Not attempted due to medical condition or safety concerns S. Wheel 150 feet 09-Not applicable - Bladder and Bowel Bladder continence 9-Not applicable Bowel continence 0-Always continent CURRENT FUNC. DEFICITS: Self-Care and Mobility MEDICATIONS: - Other See attached MAR (Medication Administration Record) ASSESSMENT: Pt. is a 81 yo WM.On 05/18/2022 he was admitted to [facility] with diagnosis Operative Ant egrade Ureteroscopy and Biopsy with INTR.His impairment category is Debility 16 - Debility (16).Pre- morbidly, Pt. was independent/mod-I in Locomotion and Self-Care; and he had good Endurance, Transfers Control, Balance, and Safety Awareness.Currently, he has deficits of Locomotion, Safety Awareness, B alance, Transfers Control, Self-Care, and Endurance.Pt. is now referred to [facility] for acute in-patient rehabilitation in order to maximize patient's functional independence in activities of daily living, strength, ROM, and mobility.- Rehab Goal Patient has realistic goal of being discharged at assistance level 6-Guilherme to reside at Home with Fam bina/Relatives. 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 Per PT, pt is dependent with bed mobility, transfers and gait and has d ecreased endurance, strength, balance and safety. Due to the decline in the patients condition he is not currently safe to remain in his current living arrangement due to reductions in balance, strength, endurance, and an inability to independently perform the necessary activities of daily living and self-care required. Pt is at risk for skin breakdown, DVT, pain, falls, stroke and infections. Our goal is for the patient to become stronger in order for him to safely return home and live independently. Patient would most directly benefit from aggressive 3 hours of daily therapy split between physical therapy and occupational therapy as well as speech therapy if warranted in the acute inpatient rehab setting. He is medically stable with relatively stable labs. He will require 24 hour nursing, doctor supervision and oversight while receiving condition and PHM. The patient is reasonably expected to participate in 3 hours of therapy a day/15 hours per week and receive care with an intensive interdisciplinary approach. COVID-19 screening performed; Patient denies new onset of fever, cough, difficulty breathing, sore throat, body aches and non-allergy nasal congestion in the past 24 hours. Patient denies travel outside of [place] in the past 14 days. Patient denies any contact with someone who has a confirmed diagnosis of or is under investigation for COVID-19 in the past 14 days. REHAB PLAN: - Physical Therapy Inability to transfer - to improve, our physical therapists will perform initial evaluation of pt's s tatus upon admission and devise an individualized program for Bed mobility Need for home safety evaluation - to improve, our physical therapists will perform initial evaluation of pt's status upon admission and devise an individualized program for Home Evaluation Need in caregiver upon discharge - to improve, our physical therapists will perform initial evaluatio n of pt's status upon admission and devise an individualized program for Caregiver Training New precaution - to improve, our physical therapists will perform initial evaluation of pt's status u lola admission and devise an individualized program for Patient precaution education Edema - to improve, our physical therapists will perform initial evaluation of pt's status upon admi ssion and devise an individualized program for Elevation Training, and Lymphedema Therapy Poor balance - to improve, our physical therapists will perform initial evaluation of pt's status upo n admission and devise an individualized program for Balance Training Poor endurance - to improve, our physical therapists will perform initial evaluation of pt's status u lola admission and devise an individualized program for Endurance Training Achieving independence - to improve, our physical therapists will perform initial evaluation of pt's status upon admission and devise an individualized program for Community Reintegration Activities - Occupational Therapy ADL deficits - to improve, our occupation therapists will perform initial evaluation of pt's status u lola admission and devise an individualized program for Bathing, Bed mobility, Community Reintegration , Cooking, Dressing, Eating, Fine Motor Skills, Grooming, Homemaking, Kitchen Mobility, Laundry, Gely ent Education, Safety Awareness, Splinting - Positioning, Transfers(Toilet, Tub, Shower), and Wheel C hair Management Need for post acute care nurse - to improve, our occupation therapists will perform initial evaluation of pt's s tatus upon admission and devise an individualized program for Caregiver Training MEDICAL PLAN: - Diet Type Start Regular - Diet - Liquid Texture Start Regular - Tube Feed Start N/A - Other See attached MAR (Medication Administration Record) - Diet - Solid Texture Regular - Shower shower DISCHARGE PLAN: - Estimated Length of Stay (days) 13. - Consensus on plan Discharge plan has been discussed with primary caregiver. Patient/Family is in agreement with the shoaib n. Primary caregiver is in agreement with the plan. - Patient/Family Goals Return home independently. - Planned Living Setting Upon Discharge Home, to live with Family/Relatives. Transitional Living. SIGNATURE PANEL: (CDT)
--- NOTE | 2022-05-21 14:10 | PAPE ---
POST ADMISSION PHYSICIAN EVALUATION PATIENT: [facility] MR# [id number] REFERRING DOCTOR christina Jett EVALUATION DATE AND TIME 05/21/2022 14:08 (CDT) NAME BENITEZ REBOLLEDO DATE OF 1940 AGE 81 PHONE N# [id number] GENDER male EVALUATING PHYSICIAN Dr. Fred Mayorga M.D. ADMISSION DIAGNOSIS: Operative Antegrade Ureteroscopy and Biopsy with INTR ONSET DATE 05/18/2022 SECONDARY/COMORBID DIAGNOSES TIERED: - Non-Tiered Parkinson's disease (G20) Neuropathy POST-ADMISSION FUNCTIONAL/MEDICAL STATUS: - Bladder Same accident frequency: 7-Ind - No accidents in the past 7 days - Bowel Same accident frequency: 7-Ind - No accidents in the past 7 days - Walking Same score based on distance walked: 0(N/A) - Wheelchair Same score based on distance traveled: 0(N/A) STATUS CHANGE EVALUATION: No change in Functional or Medical Status is identified compared with Pre-Admission screening. PATIENT NEEDS CLOSE MEDICAL SUPERVISION BY A REHABILITATION PHYSICIAN FOR: Coordination of Treatment Team Medical and Co-Morbidity Management Wound Care Bowel and Bladder Management Pain Management Post-Op Complications PATIENT REQUIRES 24X7 REHAB NURSING FOR MEDICAL AND FUNCTIONAL MGT. OF THE FOLLOWING DEFICITS: Disease Management Medication Management Patient requires 24x7 Rehabilitation Nursing for: Pain Issues, Identifying and preventing risk factor s, Monitoring and reporting current medical conditions, Assisting with ambulation and transfer, Chrissy ting with all ADL-s, Teaching patients about disease process and medications, Family teaching, Provid ing safe environment, Bowel and Bladder Issues, Skin Integrity, and Medication Management Patient/Family Education Providing Safe Environment Skin Integrity PATIENT REQUIRES INTENSIVE, COORDINATED INTERDISCIPLINARY APPROACH TO REHAB: Arranging Home Equipment/Services Discharge Planning Family Intervention/Training Patient needs Dietary and Nutrition Services for: Adequate Nutrition, Nutritional Supplements, and Nu tritional Education Patient needs Attendance Officer and/or Case Management for: Discharge Planning, Arranging Home Equipmen t or Services, and Family Interventions Attendance Officer/Case Management LIST OF IDENTIFIED AND POTENTIAL PROBLEMS: Alteration in leisure activities Bladder, Incontinence Bowel, Incontinence Infection, Actual or Potential Mobility Impaired Pain, Alteration in Comfort Self Care Deficit Skin Integrity, Actual or Potential Urinary Tract Infection (UTI), Actual or Potential RISK FOR COMPLICATIONS - DVT Active and Passive ROM exercises. Administer medications per MD order. Assist patient with frequent p osition changes. Elevate BLE. - Skin Breakdown Encourage ambulation as tolerated. Repositioning q 2 hours. Use of pillows or foam wedges while in be d. - Falls Assess for medication side effects. Maintain call light within patient reach for easy access to nursi ng assistance. Provide assistance getting out of bed and with ambulation. Provide assistive devices. - Pain Anticipate the need for pain medication for optimal pain managment. Assist patient with frequent posi tion changes at least every 2 hours. Educate patient on relaxation and deep breathing techniques. Ass ess pt for pain and Administer prescribed pain medication as needed. - Neuropathy Falls. Sensory Deficits. Skin breakdown. INTERVENTIONS - Parkinson's Disease Assess ambulation and movement. Assess patient for pallor or cyanosis in nail beds and/or around the mouth. Assess respiratory status for rate, depth, ease, use of accessory muscles, and work of breathi ng. Assist with Self-care deficits (feeding, dressing, hygiene, and toileting) related to tremors and motor disturbances. Encourage deep breathing and coughing exercises every 2 hours. - Debility Establish measures to prevent skin breakdown and thrombophlebitis from prolonged immobility. Provide safe environment. Aggressive PT/OT. - Afib Administer prescribed anticoagulants and monitor effectiveness. Assess/ Monitor pt cardiac and respir atory status. Mojitor pt labs. - Neuropathy Education. Medications. Safety. - Hypertension Assess/ Monitor patient B/P and treat with prescribed medications. PATIENT COULD BE AT RISK FOR COMPLICATIONS FROM ADVERSE MEDICAL CONDITIONS DUE TO HIS/HER COMORBIDITI ES AND THE RIGORS OF THE INTENSIVE REHABILLITATION PROGRAM. METHODS OR INTERVENTIONS TO AVOID COMPLIC ATIONS INCLUDE: - Bleeding Assess lab values and manage abnormalities. Nursing to teach precautions for anti-coagulation therapy . Wound to be assessed every shift. - Infection Clinical staff to assess and manage the signs and symptoms of infection including fever, redness, war mth, etc. - Urinary Tract Infection - Falls Patient will be evaluated for Fall Precautions and will be placed on Fall Precautions as indicated pe r protocol. - Skin Breakdown Nursing will assess skin daily using assessment tool and will place on Skin Breakdown Precautions as indicated per protocol. - Pain Clinical staff may employ non-medication methods such as massage, distraction, decrease stimulus, etc . as needed. Clinical staff will assess patient's pain level every shift per protocol to assess and e nsure pain management effectiveness. Medications will be given and the pain level re-assessed. PRELIMINARY PLAN OF CARE: - Physical Therapy Patient needs Physical Therapy for a daily minimum of 1.5 hours at least 5 out of 7 days, to improve: Mobility, Strengthening, Transfers, Stretching, ROM, Endurance, Ability to manage stairs, Gait, and Balance. - Rehabilitation Nursing Patient requires 24x7 Rehabilitation Nursing for: Pain Issues, Identifying and preventing risk factor s, Monitoring and reporting current medical conditions, Assisting with ambulation and transfer, Chrissy ting with all ADL-s, Teaching patients about disease process and medications, Family teaching, Provid ing safe environment, Bowel and Bladder Issues, Skin Integrity, and Medication Management. Patient needs Attendance Officer and/or Case Management for: Discharge Planning, Arranging Home Equipmen t or Services, and Family Interventions. - Dietary and Nutrition Services Patient needs Dietary and Nutrition Services for: Adequate Nutrition, Nutritional Supplements, and Nu tritional Education. - Occupational Therapy Patient needs Occupational Therapy for a daily minimum of 1.5 hours at least 5 out of 7 days, to impr ove Activities of Daily Living, including: Eating, Grooming, Bathing, Dressing, Toileting, Toilet Tra nsfers, Community Reintegration, Higher functional activities, Adaptive Equipment, Splinting, Househo ld Tasks, and Other activities as determined. QI SCORES: - Self-Care A. Eating 05-Setup or clean-up assistance B. Oral hygiene 05-Setup or clean-up assistance C. Toileting hygiene 03-Partial/moderate assistance E. Shower/bathe self 03-Partial/moderate assistance F. Upper body dressing 04-Supervision or touching assistance G. Lower body dressing 03-Partial/moderate assistance H. Putting on/taking off footwear 03-Partial/moderate assistance - Mobility A. Roll left and right 02-Substantial/maximal assistance B. Sit to lying 02-Substantial/maximal assistance C. Lying to sitting on side of bed 02-Substantial/maximal assistance D. Sit to stand 03-Partial/moderate assistance E. Chair/iyw-yj-bxlnu transfer 03-Partial/moderate assistance F. Toilet transfer 03-Partial/moderate assistance G. Car transfer 88-Not attempted due to medical condition or safety concerns I. Walk 10 feet 03-Partial/moderate assistance J. Walk 50 feet with two turns 03-Partial/moderate assistance K. Walk 150 feet 88-Not attempted due to medical condition or safety concerns L. Walking 10 feet on uneven surfaces 88-Not attempted due to medical condition or safety concerns M. 1 step (curb) 88-Not attempted due to medical condition or safety concerns N. 4 steps 88-Not attempted due to medical condition or safety concerns O. 12 steps 88-Not attempted due to medical condition or safety concerns P. Picking up object 88-Not attempted due to medical condition or safety concerns R. Wheel 50 feet with two turns 88-Not attempted due to medical condition or safety concerns S. Wheel 150 feet 09-Not applicable - Bladder and Bowel Bladder continence 9-Not applicable Bowel continence 0-Always continent POTENTIAL FUNCTIONAL GOALS FOR PATIENT TO ACHIEVE BY DISCHARGE: - Safety Precaution Patient will remain free from falls or injury at time of discharge. - Bed Mobility Patient will perform bed mobility at 4-Annemarie level of assistance. - Transfers Patient will complete transfers from bed to chair at 4-Annemarie level of assistance. - Mobility Patient will ambulate 150 ft with 4-Annemarie level of assistance with RW. PATIENT REHAB POTENTIAL Elian REBOLLEDO is able and expected to receive 3 hours of individualized therapy daily on at least 5 of every 7 days Elian REBOLLEDO's prognosis for significant practical improvement within a reasonable period of time appe ars Good Expected level of measurable improvement will be of a practical value to Elian REBOLLEDO's functional cap acity or adaptations to impairments Has a viable Discharge Plan Medically appropriate; condition is sufficiently stable to participate in intensive rehab program DISCHARGE PLAN: - Estimated Length of Stay (days) 13. - Consensus on plan Discharge plan has been discussed with primary caregiver. Patient/Family is in agreement with the shoaib n. Primary caregiver is in agreement with the plan. - Patient/Family Goals Return home independently. - Planned Living Setting Upon Discharge Home, to live with Family/Relatives. Transitional Living. CONCLUSION ON REHABILITATION NECESSITY: I have evaluated patient's pre-admission functional status and, comparing it to the patient's post-ad mission functional status now, I conclude that the pre-admission assessment was accurate. Patient's c ondition on admission supports the medical necessity of admission to [facility]. It is safe to proceed with patient's therapy program. SIGNATURE PANEL: (CDT)
[2022-05-21] MEDS: METOPROLOL XL 25 MG TAB PO SCH (17:14)
[2022-05-21] MEDS ORDERED: DOCUSATE NA/SENNA CONC 1 TAB PO PRN (17:20)
[2022-05-21] MEDS: FUROSEMIDE 20 MG TABLET PO SCH (20:00)
[2022-05-21] MEDS: lisinopriL 10 MG TAB PO SCH (20:00)
[2022-05-21] MEDS: TAMSULOSIN 0.4 MG SR CAP PO SCH (20:33)
[2022-05-22] MEDS: METOPROLOL XL 25 MG TAB PO SCH ×2 (05:12→17:28)
[2022-05-22] MEDS ORDERED: METOPROLOL XL 50 MG TAB PO SCH (06:00)
[2022-05-22] MEDS: HYDRALAZINE HCL 25 MG TABLET PO SCH (08:00)
[2022-05-22] MEDS: AMOX/K CLAV 875 MG TAB PO SCH (08:14)
[2022-05-22] MEDS: GABAPENTIN 100 MG CAP PO SCH ×3 (08:15→17:28)
[2022-05-22] MEDS: predniSONE 20 MG TAB PO SCH (08:15)
[2022-05-22] MEDS: POTASSIUM CL SA 10 MEQ TAB PO SCH (08:18)
[2022-05-22] MEDS: FUROSEMIDE 20 MG TABLET PO SCH ×2 (08:18→19:40)
[2022-05-22] MEDS: CARBIDOPA/LEVODOPA 25/100 TAB PO SCH ×2 (08:18→19:41)
[2022-05-22] MEDS: NUPLAZID 34 MG PO SCH (08:19)
[2022-05-22] MEDS: lisinopriL 10 MG TAB PO SCH ×2 (08:21→19:40)
--- NOTE | 2022-05-22 10:22 | P.HP ---
Certification for Inpatient Patient admitted to: Inpatient With expected LOS: >2 Midnights Practitioner: I am a practitioner with admitting privileges, knowledge of patient current condition, hospital course, and medical plan of care. Services: Services provided to patient in accordance with Admission requirements found in Title 42 Section 412.3 of the Code of Federal Regulations Patient History Date of Service: 05/22/22 Reason for admission: WEAKNESS History of Present Illness: LAST NIGHT NURSE FROM REHAB CALLED ME FIRST TIME THAT TREVA IS IN [facility] AFTER UROLOGY PROCEDURE. AFTER PROCEDURE NO ONE HAD CALLED ME UNTIL NOW. HE HAS CHRONIC PARKINSON LIKE GAIT AND HAS BEEN FULLY EVALUATED BY DR. STALEY. THE PAIN HE HAS IN [place] HAS IMPROVED WELL NOW THAT HE IS NOT SCREAMING ANY LONGER. Allergies hydromorphone [From Dilaudid] Allergy (Verified 05/13/22 14:40) Anaphylaxis Home medications list reviewed: Yes Home Medications: Carbidopa/Levodopa [Carbidopa-Levo ER 50-200 Tab] 1 tab PO BID 12/11/21 Hydralazine HCl 50 mg PO BID 12/11/21 Metoprolol Succinate 50 mg PO DAILY 12/11/21 Gabapentin 100 mg PO TID* 03/24/22 Tamsulosin [Flomax*] 0.4 mg PO BEDTIME #90 cap 03/29/22 Furosemide [Lasix] 20 mg PO DAILY 05/18/22 Lisinopril [Zestril] 20 mg PO DAILY 05/18/22 Potassium Oral Tab [Klor-Con 10 mEq Tab] 10 meq PO TIDWM 05/18/22 predniSONE [Deltasone*] 10 mg PO DAILY 05/18/22 - Past Medical/Surgical History Has patient received pneumonia vaccine in the past: Yes Diabetic: No -: Colon cancer -: Afib -: balance problems -: neuropathy -: Brain tumor -: Colon Cancer with Chemotherapy -: POLYMYALGIA RHEUMATICA- STEROIDS -: Colon sx -: Hernia repair -: 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 moist/pink, EOMI, Sclerae nonicteric Neck: Supple, 2+ carotid pulse no bruit, No LAD, Without JVD or thyroid abnormality Respiratory: Clear to auscultation bilaterally, Normal air movement Cardiovascular: Regular rate/rhythm, Normal S1 S2 Gastrointestinal: Normal bowel sounds, No tenderness Musculoskeletal: No tenderness Integumentary: No rashes Neurological: Normal speech, Normal strength at 5/5 x4 extr, Normal tone, Normal affect, Abnormal gait (SHUFFLES WHEN HE WALKS.) Lymphatics: No axilla or inguinal lymphadenopathy Assessment and Plan - Problems (Diagnosis) (1) Parkinsonian features Current Visit: Yes Status: Chronic Plan: PT TO FALL PREVENTION. HE HAS BEEN TO PT A FEWTIMES. NO CHANGES IN GAIT. MEDS FOR PD DID NOT HELP DR STALEY IS HIS NEUROLOGIST. (2) Urinary retention Current Visit: No Status: Chronic Plan: I CALLED DR. MENDEZ TO GET DETAILS OF WHAT HE DID. HE CLEANED BLADDER OF POLYPS AND INSTILLED CHEMO INSIDE. DETAILS PER HIS NOTE. I CALLED TO LET HER KNOW THAT I AM OUT OF TOWN FOR A WEEK FROM THIS PM. - Advance Directives Does patient have a Living Will: Yes Does patient have a Durable POA for Healthcare: Yes
[2022-05-22] MEDS: TAMSULOSIN 0.4 MG SR CAP PO SCH (19:41)
[2022-05-23] MEDS: ACETAMINOPHEN 500 MG TAB PO PRN (02:56)
[2022-05-23] MEDS: FUROSEMIDE 20 MG TABLET PO SCH ×2 (03:22→19:45)
[2022-05-23] MEDS: METOPROLOL XL 25 MG TAB PO SCH ×2 (05:15→17:14)
[2022-05-23] MEDS: OXYBUTYNIN ER 5 MG TAB PO SCH (05:16)
[2022-05-23] MEDS: lisinopriL 10 MG TAB PO SCH ×2 (08:00→19:46)
[2022-05-23] MEDS ORDERED: BACI/NEOMYCIN/POLY OINT 15GM TOP SCH (08:00)
[2022-05-23] MEDS: POTASSIUM CL SA 10 MEQ TAB PO SCH (08:24)
[2022-05-23] MEDS: predniSONE 20 MG TAB PO SCH (08:25)
[2022-05-23] MEDS: GABAPENTIN 100 MG CAP PO SCH ×3 (08:25→17:14)
[2022-05-23] MEDS: CARBIDOPA/LEVODOPA 25/100 TAB PO SCH ×2 (08:25→19:45)
[2022-05-23] MEDS: NUPLAZID 34 MG PO SCH (08:27)
[2022-05-23] MEDS: BACI/NEOMYCIN/POLY OINT 15GM TOP SCH ×2 (08:27→19:41)
[2022-05-23] MEDS: TAMSULOSIN 0.4 MG SR CAP PO SCH (19:45)
[2022-05-23] MEDS: AMOX/K CLAV 875 MG TAB PO SCH (19:45)
[2022-05-24] MEDS: METOPROLOL XL 25 MG TAB PO SCH ×2 (05:21→17:05)
[2022-05-24] MEDS: FUROSEMIDE 20 MG TABLET PO SCH ×2 (07:38→20:09)
[2022-05-24] MEDS: NUPLAZID 34 MG PO SCH (07:38)
[2022-05-24] MEDS: OXYBUTYNIN ER 5 MG TAB PO SCH (07:39)
[2022-05-24] MEDS: predniSONE 20 MG TAB PO SCH (07:39)
[2022-05-24] MEDS: CARBIDOPA/LEVODOPA 25/100 TAB PO SCH ×2 (07:40→20:09)
[2022-05-24] MEDS: GABAPENTIN 100 MG CAP PO SCH ×3 (07:40→17:05)
[2022-05-24] MEDS: AMOX/K CLAV 875 MG TAB PO SCH ×2 (07:41→20:09)
[2022-05-24] MEDS: POTASSIUM 25 MEQ EFFERV TAB PO SCH (07:41)
[2022-05-24] MEDS: lisinopriL 10 MG TAB PO SCH ×2 (07:43→20:00)
[2022-05-24] MEDS: BACI/NEOMYCIN/POLY OINT 15GM TOP SCH ×2 (09:17→20:10)
--- NOTE | 2022-05-24 13:28 | RAD REPORT ---
EXAM DESCRIPTION: RAD - Barium Swallow Modified - 05/24/2022 12:32 pm CLINICAL HISTORY: dysphagia COMPARISON: Urography Nephrostogram dated 05/18/2022 TECHNIQUE: The patient was given liquid, semi-solid and solid forms of barium. Lateral view fluorosc opic imaging was performed in conjunction with speech pathology service. FINDINGS: Laryngeal penetration: Cleared ; thin Not cleared; whole pill w/ thin by straw, sequential sips Pharyngeal residue: Vallecular: severe with dry solid, moderate with thin, puree, whole pill w/ thin Pyriform: mild with puree and dry solid. moderate with thin liquid & whole pill w/ thin Decreased upper esophageal sphincter opening. Total fluoroscopy time: 1 minutes and 53 seconds
--- NOTE | 2022-05-24 19:02 | R.PN ---
PROGRESS NOTES ENCOUNTER DATE AND TIME: 05/24/2022 18:52 (CDT) NAME BENITEZ REBOLLEDO DATE OF : 1940 DATE OF ADMISSION: 05/20/2022 17:51 (CDT) Operative Antegrade Ureteroscopy and Biopsy with INTRCHIEF COMPLAINT: Debility, Antegrade Ureteroscopy and Biopsy SUBJECTIVE: Pt denied any Shortness of Breath. Pt denied any depression. C with differential is essentially normal. PSA 29.3, vitamin D 15.8, testosterone 128. Ambulated 500' with CGA using a RW. Self propelled wheelchair 500' with SBA. VITAL SIGNS Temperature: 97.2 F SBP/DBP:106/64 Pulse: 79 Resp: 16 MEDICATION ALLERGIES: No Known Drug Allergies (NKDA) ENVIRONMENTAL ALLERGIES: - Substance Allergies None Known - Other Allergies None Known NURSING: - Shower allowing shower ACTIVITIES OOB only with supervision THERAPIES: - Dietary and Nutrition Adequate Nutrition. Nutritional Education. Nutritional Supplements. - Occupational Therapy Cognitive Retraining. Patient needs Occupational Therapy for a daily minimum of 1.5 hours at least 5 out of 7 days, to improve Activities of Daily Living, including: Eating, Grooming, Bathing, Dressing, Toileting, Toilet Transfers, Community Reintegration, Higher functional activities, Adaptive Equipme nt, Splinting, Household Tasks, and Other activities as determined. Visual Perceptual Training. - Physical Therapy Patient needs Physical Therapy for a daily minimum of 1.5 hours at least 5 out of 7 days, to improve: Mobility, Strengthening, Transfers, Stretching, ROM, Endurance, Ability to manage stairs, Gait, and Balance. PHYSICAL EXAM - Gen Alert and awake Lying in bed No apparent distress Oriented to: person, time, and place - Skin No skin breakdown. Normacephalic - Eyes No abnormalities - ENMT No abnormalities - Neck No abnormalities - CVS RRR - Chest No abnormalities - Resp No wheezing - Abd Soft - GI Non distended Deferred - No abnormalities - Ext Mild bilateral lower extremity edema. - MSK 4+/5 weakness in both lower extremities. - Neuro No focal deficits - Psych Mild anxiety. ASSESSMENT: Pt. is a 81 yo WM.On 05/18/2022 he was admitted to [facility] with diagnosis Operative Ant egrade Ureteroscopy and Biopsy with INTR.His impairment category is Debility 16 - Debility (16).Pre- morbidly, Pt. was independent/mod-I in Locomotion and Self-Care; and he had good Endurance, Transfers Control, Balance, and Safety Awareness.Currently, he has deficits of Locomotion, Safety Awareness, B alance, Transfers Control, Self-Care, and Endurance.Pt. is now referred to [facility] for acute in-patient rehabilitation in order to maximize patient's functional independence in activities of daily living, strength, ROM, and mobility.- Rehab Goal Patient has realistic goal of being discharged at assistance level 6-Guilherme to reside at Home with Fam bina/Relatives. MDM/PLAN: - Physical Therapy Inability to transfer - to improve, our physical therapists will perform initial evaluation of pt's status upon admission and devise an individualized program for Bed mobility Need for home safety evaluation - to improve, our physical therapists will perform initial evaluatio n of pt's status upon admission and devise an individualized program for Home Evaluation Need in caregiver upon discharge - to improve, our physical therapists will perform initial evaluati on of pt's status upon admission and devise an individualized program for Caregiver Training New precaution - to improve, our physical therapists will perform initial evaluation of pt's status upon admission and devise an individualized program for Patient precaution education Edema - to improve, our physical therapists will perform initial evaluation of pt's status upon admis shlomo and devise an individualized program for Elevation Training, and Lymphedema Therapy Poor balance - to improve, our physical therapists will perform initial evaluation of pt's status up on admission and devise an individualized program for Balance Training Poor endurance - to improve, our physical therapists will perform initial evaluation of pt's status upon admission and devise an individualized program for Endurance Training Achieving independence - to improve, our physical therapists will perform initial evaluation of pt's status upon admission and devise an individualized program for Community Reintegration Activities - Occupational Therapy ADL deficits - to improve, our occupation therapists will perform initial evaluation of pt's status upon admission and devise an individualized program for Bathing, Bed mobility, Community Reintegratio n, Cooking, Dressing, Eating, Fine Motor Skills, Grooming, Homemaking, Kitchen Mobility, Laundry, Pat ient Education, Safety Awareness, Splinting - Positioning, Transfers(Toilet, Tub, Shower), and Wheel Chair Management Need for daycare manager - to improve, our occupation therapists will perform initial evaluation of pt's status upon admission and devise an individualized program for Caregiver Training - Other See attached MAR (Medication Administration Record) - Diet Type Continue Regular - Diet - Liquid Texture Continue Regular - Tube Feed Continue N/A - Diet - Solid Texture Continue Regular - Shower allowing shower FUNCTIONAL STATUS: UPDATED AT WEEKLY TEAM CONFERENCE - Bladder Same accident frequency: 7-Ind - No accidents in the past 7 days - Bowel Same accident frequency: 7-Ind - No accidents in the past 7 days - Walking Same score based on distance walked: 0(N/A) - Wheelchair Same score based on distance traveled: 0(N/A) FUNCTIONAL STATUS: - Self-Care A. Eating Ind B. Grooming sup C. Bathing Annemarie D. Dressing - Upper sup E. Dressing - Lower Annemarie F. Toileting sup - Sphincter Control G. Bladder control Annemarie H. Bowel control Annemarie - Transfers Control I. Bed/Chair/Wheelchair Annemarie J. Toilet sup K. Tub/Shower sup - Locomotion L. Walk/Wheelchair (B) Annemarie M. Stairs maxA - Communication N. Comprehension (B) Guilherme O. Expression (B) Guilherme - Social Cognition P. Social Interaction Ind Q. Problem Solving Guilherme R. Memory Ind - Endurance Good - Balance Good - Safety Awareness Good QI SCORES: - Self-Care A. Eating 05-Setup or clean-up assistance B. Oral hygiene 05-Setup or clean-up assistance C. Toileting hygiene 03-Partial/moderate assistance E. Shower/bathe self 03-Partial/moderate assistance F. Upper body dressing 04-Supervision or touching assistance G. Lower body dressing 03-Partial/moderate assistance H. Putting on/taking off footwear 03-Partial/moderate assistance - Mobility A. Roll left and right 02-Substantial/maximal assistance B. Sit to lying 02-Substantial/maximal assistance C. Lying to sitting on side of bed 02-Substantial/maximal assistance D. Sit to stand 03-Partial/moderate assistance E. Chair/kpx-zu-fvuko transfer 03-Partial/moderate assistance F. Toilet transfer 03-Partial/moderate assistance G. Car transfer 88-Not attempted due to medical condition or safety concerns I. Walk 10 feet 03-Partial/moderate assistance J. Walk 50 feet with two turns 03-Partial/moderate assistance K. Walk 150 feet 88-Not attempted due to medical condition or safety concerns L. Walking 10 feet on uneven surfaces 88-Not attempted due to medical condition or safety concerns M. 1 step (curb) 88-Not attempted due to medical condition or safety concerns N. 4 steps 88-Not attempted due to medical condition or safety concerns O. 12 steps 88-Not attempted due to medical condition or safety concerns P. Picking up object 88-Not attempted due to medical condition or safety concerns R. Wheel 50 feet with two turns 88-Not attempted due to medical condition or safety concerns S. Wheel 150 feet 09-Not applicable - Bladder and Bowel Bladder continence 9-Not applicable Bowel continence 0-Always continent [facility]RENT [facility] DEFICITS: Self-Care and Mobility SIGNATURE PANEL: (CDT)
[2022-05-24] MEDS: TAMSULOSIN 0.4 MG SR CAP PO SCH (20:11)
[2022-05-25] MEDS: METOPROLOL XL 25 MG TAB PO SCH ×2 (05:35→17:01)
[2022-05-25 05:49] LABS: Absolute Lymphocytes (CBC) 1.9 K/uL (0.7-4.9); Hematocrit 31.3 % (39.6-49.0); MCV 92.6 fL (80-100); MPV 7.6 fL (7.6-11.3); RBC Red Blood Cell Count 3.38 M/uL (4.33-5.43)
[2022-05-25 06:30] LABS: Albumin 2.4 g/dL (3.4-5.0); Magnesium 2.4 mg/dL (1.8-2.4); Potassium 4.6 mmol/L (3.5-5.1)
[2022-05-25] MEDS: lisinopriL 10 MG TAB PO SCH ×2 (08:00→19:47)
[2022-05-25] MEDS: POTASSIUM 25 MEQ EFFERV TAB PO SCH (08:21)
[2022-05-25] MEDS: GABAPENTIN 100 MG CAP PO SCH ×3 (08:21→17:01)
[2022-05-25] MEDS: CARBIDOPA/LEVODOPA 25/100 TAB PO SCH ×2 (08:21→19:46)
[2022-05-25] MEDS: OXYBUTYNIN ER 5 MG TAB PO SCH (08:21)
[2022-05-25] MEDS: AMOX/K CLAV 875 MG TAB PO SCH ×2 (08:24→19:46)
[2022-05-25] MEDS: VITAMIN D 5,000 UNIT CAP PO SCH (08:24)
[2022-05-25] MEDS: predniSONE 20 MG TAB PO SCH (08:24)
[2022-05-25] MEDS: FUROSEMIDE 20 MG TABLET PO SCH ×2 (08:25→19:46)
[2022-05-25] MEDS: BACI/NEOMYCIN/POLY OINT 15GM TOP SCH ×2 (08:26→19:45)
[2022-05-25] MEDS: NUPLAZID 34 MG PO SCH (08:28)
--- NOTE | 2022-05-25 13:04 | RAD REPORT ---
EXAM DESCRIPTION: RAD - Humerus Right - 05/25/2022 11:46 am CLINICAL HISTORY: pain on right forearm COMPARISON: No comparisons FINDINGS: No fracture is identified. There is no dislocation or periosteal reaction noted. No pathol ogic bone changes are identifiable. Patient does have degenerative change at the shoulder joint. The acromial humeral joint space is narrowed. This may indicate a chronic rotator cuff tear. Spurring is seen along the lateral inferior margin of the acromion. AC joint degenerative changes minimal. IMPRESSION: No acute or pathologic changes to the right humerus identifiable. 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
--- NOTE | 2022-05-25 17:36 | R.PN ---
PROGRESS NOTES ENCOUNTER DATE AND TIME: 05/25/2022 17:26 (CDT) NAME BENITEZ REBOLLEDO DATE OF : 1940 DATE OF ADMISSION: 05/20/2022 17:51 (CDT) Operative Antegrade Ureteroscopy and Biopsy with INTRCHIEF COMPLAINT: Debility, Antegrade Ureteroscopy and Biopsy SUBJECTIVE: Pt denied any Shortness of Breath. Pt denied any depression. CBC with differential shows mildly low Hgb at 10.8. Money Manager 1.4. He needs more water. PSA 29.3, vitamin D 15.8, testosterone 128. Ambulated 500' with CGA using a RW. Self propelled wheelchair 500' with SBA. VITAL SIGNS Temperature: 97.2 F SBP/DBP:108/55 Pulse: 86 Resp: 16 MEDICATION ALLERGIES: No Known Drug Allergies (NKDA) ENVIRONMENTAL ALLERGIES: - Substance Allergies None Known - Other Allergies None Known NURSING: - Shower allowing shower ACTIVITIES OOB only with supervision THERAPIES: - Dietary and Nutrition Adequate Nutrition. Nutritional Education. Nutritional Supplements. - Occupational Therapy Cognitive Retraining. Patient needs Occupational Therapy for a daily minimum of 1.5 hours at least 5 out of 7 days, to improve Activities of Daily Living, including: Eating, Grooming, Bathing, Dressing, Toileting, Toilet Transfers, Community Reintegration, Higher functional activities, Adaptive Equipme nt, Splinting, Household Tasks, and Other activities as determined. Visual Perceptual Training. - Physical Therapy Patient needs Physical Therapy for a daily minimum of 1.5 hours at least 5 out of 7 days, to improve: Mobility, Strengthening, Transfers, Stretching, ROM, Endurance, Ability to manage stairs, Gait, and Balance. PHYSICAL EXAM - Gen Alert and awake Lying in bed No apparent distress Oriented to: person, time, and place - Skin No skin breakdown. Normacephalic - Eyes No abnormalities - ENMT No abnormalities - Neck No abnormalities - CVS RRR - Chest No abnormalities - Resp No wheezing - Abd Soft - GI Non distended Deferred - No abnormalities - Ext Mild bilateral lower extremity edema. - MSK 4+/5 weakness in both lower extremities. - Neuro No focal deficits - Psych Mild anxiety. ASSESSMENT: Pt. is a 81 yo WM.On 05/18/[address] [facility] with diagnosis Operative Ant egrade Ureteroscopy and Biopsy with INTR.His impairment category is Debility 16 - Debility (16).Pre- morbidly, Pt. was independent/mod-I in Locomotion and Self-Care; and he had good Endurance, Transfers Control, Balance, and Safety Awareness.Currently, he has deficits of Locomotion, Safety Awareness, B alance, Transfers Control, Self-Care, and Endurance.Pt. is now referred to [facility] for acute in-patient rehabilitation in order to maximize patient's functional independence in activities of daily living, strength, ROM, and mobility.- Rehab Goal Patient has realistic goal of being discharged at assistance level 6-Guilherme to reside at Home with Fam bina/Relatives. MDM/PLAN: - Physical Therapy Inability to transfer - to improve, our physical therapists will perform initial evaluation of pt's status upon admission and devise an individualized program for Bed mobility Need for home safety evaluation - to improve, our physical therapists will perform initial evaluatio n of pt's status upon admission and devise an individualized program for Home Evaluation Need in caregiver upon discharge - to improve, our physical therapists will perform initial evaluati on of pt's status upon admission and devise an individualized program for Caregiver Training New precaution - to improve, our physical therapists will perform initial evaluation of pt's status upon admission and devise an individualized program for Patient precaution education Edema - to improve, our physical therapists will perform initial evaluation of pt's status upon admi ssion and devise an individualized program for Elevation Training, and Lymphedema Therapy Poor balance - to improve, our physical therapists will perform initial evaluation of pt's status up on admission and devise an individualized program for Balance Training Poor endurance - to improve, our physical therapists will perform initial evaluation of pt's status upon admission and devise an individualized program for Endurance Training Achieving independence - to improve, our physical therapists will perform initial evaluation of pt's status upon admission and devise an individualized program for Community Reintegration Activities - Occupational Therapy ADL deficits - to improve, our occupation therapists will perform initial evaluation of pt's status upon admission and devise an individualized program for Bathing, Bed mobility, Community Reintegratio n, Cooking, Dressing, Eating, Fine Motor Skills, Grooming, Homemaking, Kitchen Mobility, Laundry, Pat ient Education, Safety Awareness, Splinting - Positioning, Transfers(Toilet, Tub, Shower), and Wheel Chair Management Need for care program director - to improve, our occupation therapists will perform initial evaluation of pt's status upon admission and devise an individualized program for Caregiver Training - Other See attached MAR (Medication Administration Record) - Diet Type Continue Regular - Diet - Liquid Texture Continue Regular - Tube Feed Continue N/A - Diet - Solid Texture Continue Regular - Shower allowing shower FUNCTIONAL STATUS: UPDATED AT WEEKLY TEAM CONFERENCE - Bladder Same accident frequency: 7-Ind - No accidents in the past 7 days - Bowel Same accident frequency: 7-Ind - No accidents in the past 7 days - Walking Same score based on distance walked: 0(N/A) - Wheelchair Same score based on distance traveled: 0(N/A) FUNCTIONAL STATUS: - Self-Care A. Eating Ind B. Grooming sup C. Bathing Annemarie D. Dressing - Upper sup E. Dressing - Lower Annemarie F. Toileting sup - Sphincter Control G. Bladder control Annemarie H. Bowel control Annemarie - Transfers Control I. Bed/Chair/Wheelchair Annemarie J. Toilet sup K. Tub/Shower sup - Locomotion L. Walk/Wheelchair (B) Annemarie M. Stairs maxA - Communication N. Comprehension (B) Guilherme O. Expression (B) Guilherme - Social Cognition P. Social Interaction Ind Q. Problem Solving Guilherme R. Memory Ind - Endurance Good - Balance Good - Safety Awareness Good QI SCORES: - Self-Care A. Eating 05-Setup or clean-up assistance B. Oral hygiene 05-Setup or clean-up assistance C. Toileting hygiene 03-Partial/moderate assistance E. Shower/bathe self 03-Partial/moderate assistance F. Upper body dressing 04-Supervision or touching assistance G. Lower body dressing 03-Partial/moderate assistance H. Putting on/taking off footwear 03-Partial/moderate assistance - Mobility A. Roll left and right 02-Substantial/maximal assistance B. Sit to lying 02-Substantial/maximal assistance C. Lying to sitting on side of bed 02-Substantial/maximal assistance D. Sit to stand 03-Partial/moderate assistance E. Chair/nay-oc-fobeu transfer 03-Partial/moderate assistance F. Toilet transfer 03-Partial/moderate assistance G. Car transfer 88-Not attempted due to medical condition or safety concerns I. Walk 10 feet 03-Partial/moderate assistance J. Walk 50 feet with two turns 03-Partial/moderate assistance K. Walk 150 feet 88-Not attempted due to medical condition or safety concerns L. Walking 10 feet on uneven surfaces 88-Not attempted due to medical condition or safety concerns M. 1 step (curb) 88-Not attempted due to medical condition or safety concerns N. 4 steps 88-Not attempted due to medical condition or safety concerns O. 12 steps 88-Not attempted due to medical condition or safety concerns P. Picking up object 88-Not attempted due to medical condition or safety concerns R. Wheel 50 feet with two turns 88-Not attempted due to medical condition or safety concerns S. Wheel 150 feet 09-Not applicable - Bladder and Bowel Bladder continence 9-Not applicable Bowel continence 0-Always continent CURRENT [facility]. DEFICITS: Self-Care and Mobility SIGNATURE PANEL: (CDT)
[2022-05-25 18:22] LABS: Prealbumin 20.7 mg/dL (20-40)
[2022-05-25] MEDS: APIXABAN 2.5 MG TABLET PO SCH (19:46)
[2022-05-25] MEDS: TAMSULOSIN 0.4 MG SR CAP PO SCH (19:46)
[2022-05-26] MEDS: METOPROLOL XL 25 MG TAB PO SCH (05:24)
[2022-05-26 07:08] VITALS: BP 96/54; TEMP 98.2
[2022-05-26] MEDS: lisinopriL 10 MG TAB PO SCH (08:00)
[2022-05-26] MEDS: POTASSIUM 25 MEQ EFFERV TAB PO SCH (08:00)
[2022-05-26] MEDS: BACI/NEOMYCIN/POLY OINT 15GM TOP SCH (08:00)
[2022-05-26] MEDS: FUROSEMIDE 20 MG TABLET PO SCH (08:00)
[2022-05-26] MEDS: APIXABAN 2.5 MG TABLET PO SCH (08:03)
[2022-05-26] MEDS: OXYBUTYNIN ER 5 MG TAB PO SCH (08:03)
[2022-05-26] MEDS: CARBIDOPA/LEVODOPA 25/100 TAB PO SCH (08:03)
[2022-05-26] MEDS: VITAMIN D 5,000 UNIT CAP PO SCH (08:04)
[2022-05-26] MEDS: predniSONE 20 MG TAB PO SCH (08:04)
[2022-05-26] MEDS: AMOX/K CLAV 875 MG TAB PO SCH (08:05)
[2022-05-26] MEDS: GABAPENTIN 100 MG CAP PO SCH (08:05)
[2022-05-26] MEDS: NUPLAZID 34 MG PO SCH (08:09)
--- NOTE | 2022-05-26 09:46 | P.RH.PN ---
Estimated Length of Stay: 6 Expected Discharge Date: 05/26/22 Discharge Disposition Plan: Home Family Support: Yes [employer] Goal: Mobility, Transfers, Self Care Vital Signs: Last Vital Signs Temp 98.2 F 05/26/22 07:07 Pulse 84 05/26/22 08:00 Resp 18 05/26/22 07:07 BP 96/54 L 05/26/22 08:00 Pulse Ox 97 05/26/22 07:07 Laboratory: Laboratory Last Values WBC 8.70 K/uL (4.3-10.9) D 05/25/22 05:12 RBC 3.38 M/uL (4.33-5.43) L 05/25/22 05:12 Hgb 10.8 g/dL (13.6-17.9) L 05/25/22 05:12 Hct 31.3 % (39.6-49.0) L 05/25/22 05:12 MCV 92.6 fL (80-100) 05/25/22 05:12 MCH 31.9 pg (27.0-35.0) 05/25/22 05:12 MCHC 34.4 g/dL (32.0-36.0) 05/25/22 05:12 RDW 14.9 % (12.1-15.2) 05/25/22 05:12 Plt Count 162 K/uL (152-406) 05/25/22 05:12 MPV 7.6 fL (7.6-11.3) 05/25/22 05:12 Neutrophils % 68.7 % (41.7-73.7) 05/25/22 05:12 Lymphocytes % 22.0 % (15.3-44.8) 05/25/22 05:12 Monocytes % 7.8 % (3.3-12.3) 05/25/22 05:12 Eosinophils % 1.0 % (0-4.4) 05/25/22 05:12 Basophils % 0.5 % (0-1.3) 05/25/22 05:12 Absolute Neutrophils 5.9 K/uL (1.8-8.0) 05/25/22 05:12 Absolute Lymphocytes 1.9 K/uL (0.7-4.9) 05/25/22 05:12 Absolute Monocytes 0.7 K/uL (0.1-1.3) 05/25/22 05:12 Absolute Eosinophils 0.1 K/uL (0-0.5) 05/25/22 05:12 Absolute Basophils 0.0 K/uL (0-0.5) 05/25/22 05:12 Sodium 140 mmol/L (136-145) 05/25/22 05:12 Potassium 4.6 mmol/L (3.5-5.1) 05/25/22 05:12 Chloride 104 mmol/L (98-107) 05/25/22 05:12 Carbon Dioxide 33 mmol/L (21-32) H 05/25/22 05:12 Anion Gap 7.6 mEq/L (5.0-15.0) 05/25/22 05:12 BUN 24 mg/dL (7-18) H 05/25/22 05:12 Creatinine 1.40 mg/dL (0.55-1.3) H 05/25/22 05:12 Est GFR (CKD-EPI) 50 ml/min (=/>90) L 05/25/22 05:12 Glucose 93 mg/dL (74-106) 05/25/22 05:12 POC Glucose 103 mg/dL (65-120) 05/22/22 11:39 Calcium 8.8 mg/dL (8.5-10.1) 05/25/22 05:12 Magnesium 2.4 mg/dL (1.8-2.4) 05/25/22 05:12 Albumin 2.4 g/dL (3.4-5.0) L 05/25/22 05:12 Prealbumin 20.7 mg/dL (20-40) 05/25/22 05:12 PSA Screen 29.30 ng/mL (0-4.00) H 05/22/22 10:28 Vitamin B12 256 pg/mL (193-986) 05/22/22 10:28 25-OH Vitamin D Total 15.8 ng/mL (30-100) L 05/22/22 10:28 TSH 2.700 uIU/mL (0.360-3.740) 05/22/22 10:28 Testosterone Level 128 ng/dL (240-950) L 05/22/22 10:28 Urine Color Light-red (Yellow) 05/20/22 21:47 Urine Clarity Slightly cloudy (Clear) 05/20/22 21:47 Urine pH 7.0 (5.0-7.0) 05/20/22 21:47 Ur Specific [place] 1.015 (1.005-1.030) 05/20/22 21:47 Glucose (UA)(Auto) Negative (Negative) 05/20/22 21:47 Urine Ketones Negative (Negative) 05/20/22 21:47 Urine Blood 3+ (Negative) H 05/20/22 21:47 Urine Nitrite Negative (Negative) 05/20/22 21:47 Urine Bilirubin Negative (Negative) 05/20/22 21:47 Urine Urobilinogen 0.2 mg/dL (0.2-1.0) 05/20/22 21:47 Ur Leukocyte Esterase 1+ (Negative) H 05/20/22 21:47 Urine RBC >50 /HPF (None Seen) H 05/20/22 21:47 Urine Red Cell Clumps Cancelled 05/20/22 20:25 Urine WBC 5-10 /HPF (<5) 05/20/22 21:47 Urine WBC Clumps Cancelled 05/20/22 20:25 Ur Squamous Epith Cells <5 /HPF (None Seen) 05/20/22 21:47 U Non-Squamous Epi Cells Cancelled 05/20/22 20:25 Ur Transition Epith Cell Cancelled 05/20/22 20:25 Ur Renal Epithelial Cell Cancelled 05/20/22 20:25 Calcium Carbonate Cryst Cancelled 05/20/22 20:25 Calcium Oxalate Crystal Cancelled 05/20/22 20:25 Leucine Crystals Cancelled 05/20/22 20:25 Cystine Crystals Cancelled 05/20/22 20:25 Uric Acid Crystals Cancelled 05/20/22 20:25 Triple Phos Crystals Cancelled 05/20/22 20:25 Tyrosine Crystals Cancelled 05/20/22 20:25 Unidentified Crystals Cancelled 05/20/22 20:25 Amorphous Crystals Cancelled 05/20/22 20:25 Urine Bacteria >50 /HPF (<20) H 05/20/22 21:47 Hyaline Casts Cancelled 05/20/22 20:25 Granular Casts Cancelled 05/20/22 20:25 Waxy Casts Cancelled 05/20/22 20:25 RBC Casts Cancelled 05/20/22 20:25 WBC Casts Cancelled 05/20/22 20:25 Urine Mucus Cancelled 05/20/22 20:25 Urine Trichomonas Cancelled 05/20/22 20:25 Ur Yeast w Hyphae Cancelled 05/20/22 20:25 Urine Yeast (Budding) Cancelled 05/20/22 20:25 Urine Sperm Cancelled 05/20/22 20:25 Ur Oval Fat Bodies Cancelled 05/20/22 20:25 Urine Total Protein 2+ (Negative) H 05/20/22 21:47 Urine Ascorbic Acid Cancelled 05/20/22 20:25 Urine Fat Cancelled 05/20/22 20:25 Weight: 224 lb Wound Present: No Closed Surgical Incision Present: No Negative Pressure Wound Therapy Present: No Physician Update: His labs are stable. He wants to leave early and is not quite ready. He refuses to stay despite being strongly encouraged. He continue to be a high fall risk and requires 24 hr supervision. Was max assistance to moderate assistance with upper body dressing and toileting. Min assistance bathing. Max assistance lower body dressing. Min assistance for transfers. Ambulated 250' with SBA, wheelchair 250' with SBA, 5 steps with bilateral hand rails. Need a lot of queing. He is impulsive. He will go home with home health via [facility]. Comment: noted redness at bottom , on air mattress Summary: Patient's care plan and fci goals have been reviewed and revised as necessary. Please see the Rehabilitation Signature page for all necessary sig natures.
[2022-05-27] MEDS ORDERED: predniSONE 10 MG TAB PO SCH (08:00)
== END 2022-05-26 11:05 | disposition home health service (06) | DRG 949 ==
LOC: 5TH 17:51
PROVIDERS: ADMIT Psychiatry & Neurology Neurology with Special Qualifications in Child Neurology; ATTEND Psychiatry & Neurology Neurology with Special Qualifications in Child Neurology
DX: Z48.816 Encounter for surgical aftercare following surgery on the genitourinary system (principal); I48.20 Chronic atrial fibrillation, unspecified; R53.81 Other malaise; G20 Parkinson's disease; I10 Essential (primary) hypertension; G62.9 Polyneuropathy, unspecified; Z85.038 Personal history of other malignant neoplasm of large intestine
CPT/HCPCS: 36415; 74230; 74425; 80048; 80170; 81001; 82040; 82306; 82607; 82947; 83735; 84132; 84134; 84403; 84443; 85025; 87086; 87088; 87811; 88305; 88307; 92523; 92526; 92611; 93005; 97110; 97116; 97161; 97530; A4216; G0103; G0378; G0379; J0290; J0330; J1580; J2001; J2704; J2710; J3010; J7120; J7512; J9201; U0003

== ENCOUNTER 2022-08-03 10:26 | Day surgery (SDC) | payer OTHER ==
[2022-07-27 15:30] LABS: Hematocrit 35.8 % (39.6-49.0); Lymphocytes % 16.2 % (15.3-44.8); MCV 99.9 fL (80-100); MPV 7.6 fL (7.6-11.3); RBC Red Blood Cell Count 3.58 M/uL (4.33-5.43)
[2022-07-27 15:32] LABS: Protime INR 1.15
[2022-07-27 16:40] LABS: Blood Morphology Comment NOTED (NOT SEEN); Platelet Estimate ADEQ; White Blood Cell Scan OK (OK)
[2022-07-27 16:41] LABS: Anisocytosis 1+
[2022-07-27 18:14] LABS: Potassium 4.2 mmol/L (3.5-5.1)
[2022-08-03] MEDS ORDERED: Ringers Lactate 1,000 ML IV ONE ×2 (10:54→13:06)
[2022-08-03] MEDS ORDERED: AMPICILLIN SODIUM 2 GM/VIAL VIAL ONE (10:54)
[2022-08-03] MEDS: FENTANYL CITR 100 MCG/2 ML ONE ×2 (11:09→11:14)
[2022-08-03] MEDS ORDERED: levoFLOXacin 500 MG TAB PO ONE (11:15)
[2022-08-03] MEDS ORDERED: LIDOCAINE 1% MPF 5 ML VIAL ONE (12:02)
[2022-08-03] MEDS ORDERED: ONDANSETRON 4 MG/2 ML VIAL ONE (12:02)
[2022-08-03] MEDS ORDERED: propofoL 200 MG/20 ML VIAL IV ONE (12:02)
[2022-08-03] MEDS ORDERED: ROCURONIUM 50 MG/5 ML VIAL IV ONE (12:02)
[2022-08-03] MEDS ORDERED: FENTANYL CITR 100 MCG/2 ML ONE ×2 (12:02→12:38)
[2022-08-03] MEDS ORDERED: KETOROLAC 30 MG/ML INJ ONE (14:13)
--- NOTE | 2022-08-03 14:44 | RAD REPORT ---
EXAM DESCRIPTION: RAD - Urethrocystogrphy Retrograde - 08/03/2022 2:30 pm CLINICAL HISTORY: CYSTO COMPARISON: Pelvis Wo Cont dated 07/28/2022; Pelvis W/Wo Cont dated 03/31/2022 FINDINGS/IMPRESSION: Multiple intraoperative fluoroscopic images were submitted showing cannulation of the left ureter. A guidewire was placed into the left renal pelvis. A left double-J ureteral stent was placed. The patient's current left-sided nephrostomy tube was removed. Surgical changes are pres ent in the left aspect of the pelvis. Fluoro time: 7 minutes 47 seconds
[2022-08-03] MEDS ORDERED: PHENAZOPYRIDINE 100MG TAB PO ONE (14:50)
[2022-08-03] MEDS ORDERED: HYDROCODONE/APAP 5/325 MG TAB PO PRN (14:50)
[2022-08-03] MEDS ORDERED: HYDROCODONE/APAP 5/325 MG TAB ONE (16:24)
[2022-08-03] MEDS ORDERED: LIDOCAINE JELLY 2% 5 ML SYRINGE TOP ONE (18:47)
[2022-08-03 19:06] VITALS: BP 133/81; TEMP 96.9; O2SAT 96
--- NOTE | 2022-08-03 20:03 | OP ---
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 Principal Procedure: 1.Cystoscopy with bladder biopsies and fulguration. 2.Complex left retrograde pyelography. 3.Left antegrade pyelography. 4.Attempted, but failed left ureteroscopy. 5.Left ureteral stent exchange. 6.Removal of left nephrostomy. Indication For Procedure: Mr. Peralta is an 81-year-old gentleman, who presented with a bladder annalisa or and evidence of obstruction with a filling defect in the distal left reimplanted ureter. He under went treatment with intrarenal gemcitabine that was allowed to instill and intubate intravesically fo r an induction course over the last 6 weeks before presenting today for repeat evaluation, bladder bi opsies and assessment of that upper tract. Procedure In Detail: The patient was consented in the preoperative holding area before being transfe rred to operative suite where general anesthesia was induced. He was given Levaquin 500 mg oral anti microbial prophylaxis 2 hours prior to the procedure and of note, he had been taking Augmentin starti ng on Tuesday. 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 His genitalia were prepped with Hibiclens af ter he was placed in the lithotomy position, padded and secured to the table appropriately. After he was placed under general anesthesia, the case was begun using a 22-[place] rigid cystoscope to miladys se the urethra and into the bladder with ease. There were no urethral lesions noted and the area fletcher or prostatic urethral resection was noted to be widely patent. Upon entry into the bladder, after de compressing it of the urine within, I then refilled it and surveyed the bladder in its entirety. The ureteral stent was emanating from the reimplanted site in the anterolateral wall of the bladder on t he left. The remainder of the bladder was free of any papillary mucosal lesions, but there was a sli ght area of erythema and mucosal change, which could have reasonably been from trauma associated with the stent. I did biopsy those sites present within the left posterior wall of the bladder and withi n the anterior dome region of the bladder slightly to the right. These were sent for pathologic anal ysis. I then turned my attention to the ureteral stent, which was grasped using an alligator grasper and the tip of the stent was delivered to his meatus. The proximal tip of the stent was observed to be within the mid ureter fluoroscopically. As a result, I passed a Sensor wire via the stent and aburto ccessfully navigated into the putative upper pole of the kidney. Over the Sensor wire, I was able to pass a 5-[place] ureteral access catheter into the upper pole of the kidney and a retrograde pyelogra m was performed. Left retrograde pyelography: Using a 70:30 mixture of Omnipaque and saline, contrast was injected via the 5-[place] ureteral access catheter, which was present within the upper pole calyx of the left kidney. Contrast did fill the u pper and mid pole calyces and slowly began to feel the lower pole calyces. Contrast did not emanate in a cohesive fashion down the ureter with the proximal ureter filling and a portion of the distal ur eter filling, but unable to achieve adequate peristalsis of contrast sufficient to visualize the enti rety of the course of the ureter. As a result, I passed the Sensor wire back into the collecting sys tem coiled fluoroscopically in the upper pole and attempted to pass a dual-lumen catheter over the Se nsor wire into the ureteral orifice. Unfortunately, this was not successful just due to the ergonomi cs of the reimplanted ureter; so, I passed a 5-[place] ureteral access catheter over the Sensor wire b ack into the mid proximal ureter, this time with difficulty getting it beyond a functional UPJ that d eveloped and then switching the Sensor wire for a Super Stiff wire successfully coiled within the upp er pole of the kidney. Then over the Super Stiff wire, I was able to remove the 5-[place]er ureteral ac cess catheter and replace it with a dual-lumen catheter, which was navigated into the mid ureter. I then again performed a retrograde pyelogram. Again using a similar 70:30 mixture of Omnipaque and saline, contrast was injected into the mid dista l ureter and did propagate without filling defect up to a point of functional UPJ narrowing before en tering the renal pelvis, which did eventually fill without any evidence of filling defect. Contrast did emanate along the catheter down into the bladder, but it was not clear at the extent of whether t here was any potential filling defect as long as the catheter was in place. So I placed a second Sup er Stiff wire via the second lumen of the dual-lumen catheter and removed the dual-lumen catheter att empting to pass the 5-[place] ureteral access catheter again just into the distal ureter in order to a gain perform a retrograde pyelogram. Repeat retrograde pyelography failed to identify a significant filling defect in the distal ureter at the reimplanted ureterovesical junction. However to directly visualize that tissue, I wanted to perform direct vision ureteroscopy. I thus replaced the Super Sti ff wire and attempted to pass a ureteral access sheath over the second wire. Unfortunately, the uret eral access sheath would not pass into the reimplanted ureteral orifice despite attempts. I then att empted to perform direct vision semi-rigid ureteroscopy, but I was unable to navigate the tip into th e reimplanted left ureteral orifice. So after multiple attempts, including just with a flexible uret eroscope over a Super Stiff wire without being able to gain access into the distal ureter, I aborted further attempts at ureteroscopy. I then in an attempt to confirm complete absence of any filling de fects along the course of the ureter injected contrast in an antegrade fashion via the nephrostomy tu be. The contrast did fill the calyces of the kidney, but did not significantly pass beyond the point of functional ureteropelvic junction obstruction that had developed ever since the first retrograde pyelogram was performed. As a result, after multiple attempts and failure to gain access into the di stal ureter on the left side, I back-loaded the cystoscope over the Super Stiff safety wire and passe d a 6-[place]er by 30 cm double-J stent with a coil observed within the renal pelvis and 1 cystoscopical ly formed in the bladder. The bladder was then left full and I placed an 18-[place] Harley catheter wi ease. Approximately 15 cc of sterile water was placed in the balloon, and the catheter was connec wendy to a leg bag. The patient was then taken out of the lithotomy position, and I cut the suture hol ding the nephrostomy tube to the skin before cutting the nephrostomy tube and removing the tube from his kidney and his back with ease and with a coil of the tube intact. A gauze and tape dressing were applied over the nephrostomy site, and the patient was then transferred to a stretcher before being transferred to the recovery room in good condition. Complications: None. Discharge Disposition: He should follow up in the Urology Clinic in about 2-3 weeks where we will re view the results of the pathology of the bladder biopsies. As long as those biopsies are benign for malignancy, I would plan an interval CT urogram to assess for persistence or recurrence of a filling defect in the distal ureter. Prior to this, we would consider removing the left ureteral stent, but I will have that discussion with the family as there is a significant potential that the stricture di sease may just recur. JULIANNA/MAVIS Voice ID: [id number] Report ID: [id number]
== END 2022-08-03 19:18 | disposition home or self-care (01) ==
LOC: OR 10:26
PROVIDERS: ATTEND Urology
PROC: 0T9780Z Drainage of Left Ureter with Drainage Device, Via Natural or Artificial Opening Endoscopic (ICD-10-PCS; 2022-08-03)
PROC: 0TBB8ZX Excision of Bladder, Via Natural or Artificial Opening Endoscopic, Diagnostic (ICD-10-PCS; principal; 2022-08-03 12:30)
DX: C67.9 Malignant neoplasm of bladder, unspecified (principal); C66.2 Malignant neoplasm of left ureter; R10.32 Left lower quadrant pain; D09.0 Carcinoma in situ of bladder
CPT/HCPCS: 52204; 52332; 52351; 87088; 85025; 87086; 80048; 36415; 85610; 88305; 85730; 87077; 87186; 74450; 51610; J2704; J2001; J3010 ×2; J7120 ×2; J2405; J0290

== ENCOUNTER 2022-08-15 00:56 | Emergency (ER) | payer OTHER ==
--- OUTSIDE RECORDS SUMMARY | 2022-08-15 01:03 | XMS REPORT | Continuity of Care Document ---
:1940 Author Organization [facility] t Address [address] [place] [address] [place] [address] Care Team Providers Name Role Phone Danny Schultz MD Primary Care Physician CHRIS LAZARO Attending Clinician Unavailable Dewayne Britton MD Attending Clinician SANA GUSMAN Attending Clinician Unavailable Fuad Blackburn Attending Clinician Sana Gusman MD Attending Clinician MILAD MENDEZ Attending Clinician Unavailable Milad Mendez MD Attending Clinician Virtual, Surgeon Attending Clinician Unavailable Diana Lake Attending Clinician Unavailable CHRIS LAZARO Attending Clinician Unavailable Jazzy Anderson Attending Clinician Geni Herrera MD Attending Clinician Fidel Gonzalez MD Attending Clinician [phone] Andrew Neil MD Attending Clinician ANDREW NEIL Attending Clinician Unavailable Jason Staley MD Attending Clinician Zach Gould Attending Clinician BREANNA MEANS Attending Clinician Unavailable Lenard CONTINUITY TESTER, Saul Patrick Attending Clinician Unavailable Breanna Means MD Attending Clinician Lenard CONTINUITY TESTER, Lorri Daley Attending Clinician Unavailable Alannah PT, Elena T Attending Clinician Unavailable Doctor Unassigned, [place] Attending Clinician Unavailable Nurse, [facility] Pob Immunization Attending Clinician Unavailable Anuel Galarza DO Attending Clinician ANUEL GALARZA Attending Clinician Unavailable Maida PT, Varsha Dunbar Attending Clinician Unavailable Fercho LUCAS, Samantha Attending Clinician Unavailable Ricco Rodriguez MD Attending Clinician Jagdeep Elizabeth PT, Shirley Attending Clinician Unavailable Brendan Hall MD Attending Clinician JASON STALEY Attending Clinician Unavailable JASON STALEY Attending Clinician Unavailable ASTRDI JENKINS Attending Clinician Unavailable 2, [facility] Attending Clinician Unavailable BRENDAN HALL Attending Clinician Unavailable Bea KATZ, Amie Stringer Attending Clinician Unavailable Flor WHEELER, Chris Attending Clinician CHRIS BURGOS Attending Clinician Unavailable Julisa WHEELER, Sendil K.H. Attending Clinician Mariana Edwards Attending Clinician MARIANA VENCES Attending Clinician Unavailable Jelly Ortiz MD Attending Clinician JULISA SENDYULY K.H. Attending Clinician Unavailable Martha Levy RN Attending Clinician Unavailable Yenifer Lowe RN Attending Clinician Barney Naiduya S Attending Clinician Efe Pugh MD Attending Clinician DENNY KRISHNAN Attending Clinician Unavailable DIMA REA Attending Clinician Unavailable CHRIS LAZARO Admitting Clinician Unavailable MILAD MENDEZ Admitting Clinician Unavailable FIDEL GONZALEZ Admitting Clinician Unavailable Zach Gould Admitting Clinician CHRIS BURGOS Admitting Clinician Unavailable JASON STALEY Admitting Clinician Unavailable Efe Pugh MD Admitting Clinician Payers Payer Name Policy Type Policy Number Effective Date Expiration Date Joseph cm MEDICARE A B [id number] 2005 00:00:00 GENERIC MEDICARE [id number] 2015 SUPPLEMENT 00:00:00 MEDICARE PART A \\T\\ [id number] 2005 B 00:00:00 COMMERCIAL [id number] 2010 NON-CONTRACT 00:00:00 GENERIC MEDICARE PART A \\T\\ [id number] B - MEDICARE MEDIGAP-GENERIC - [id number] 2010 GENERIC PAYOR 00:00:00 AARP MEDICARE [id number] SUPPLEMENT PLAN - [facility] [id number] [facility] Problems Condition Condition Condition Status Onset Resolution Last Treating Co mments Source Name Details Category Date Date Treatment Clinician Date 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03 [facility] [place] Hydrourete Hydrourete Disease Active [facility] r 5-04 [facility] 00:00: of 00 Medicin e Nephrostom Nephrostom Disease Active [facility] y status y status 5-04 Colleg e (HCCode) (HCCode) 00:00: of 00 Medicin e CHARY (acute CHARY (acute Disease Active [facility] kidney kidney 4-26 [facility]) injury) 00[facility] 00 Center Atrial Atrial Disease Active [facility] fibrillati fibrillati - [facility] on on 00:00: Medical 00 Center Benign Benign Disease Active [facility]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 4-26 [facility] s HTN HTN 00:00: Medical 00 Center Hydronephr Hydronephr Disease Active [facility] osis osis 01-03 [facility] 00 [place] SEVERE SEVERE Diagnosis Active 2021-12-22 Me moria HYDRONEPHR HYDRONEPHR 12-12 21:45:00 l OSIS OSIS 00:00: [place] Active 00 12/12/2021 [facility] [place] HYDRONEHRO Diagnosis Active 2021-12-12 Mem[facility] SIS HYDRONEHRO 4-02 15:22:00 l SIS Active 00:00: [place] n 12/12/2021 [facility] Joint pain Joint pain Disease Active 2021-0 U nivers 3-10 ity of 00:00: [place] 00 Medical Branch Abnormal Abnormal Disease Active Unive rs gait gait 3-10 ity of 00:00: [place] [facility] Muscle Muscle Disease Active 2021- Univers weakness weakness 3-10 ity of 00:00: [place] 00 Medical Branch Nonrheumat Nonrheumat Disease Active 2020-0 U nivers ic aortic ic aortic 5-11 ity of valve valve 00:00: [place] insufficie insufficie 00 Me dical ncy ncy Branch PAF PAF Disease Active 2020-0 Univers (paroxysma (paroxysma 5-11 it y of l atrial l atrial 00:00: [place] fibrillati fibrillati 00 Me dical on) on) Branch 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 00:00: [place] 00 Medical Branch Essential Essential Disease Active 2020-0 Uni vers hypertensi hypertensi 2-01 it y of on on 00:00: [place] 00 Medical Branch 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 00:00: [place] 00 Medical Branch Dizzy Dizzy Disease Active 2020-0 Univers spells spells 2-01 ity of 00:00: [place] 00 Medical Branch 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, sinus a, sinus 2-01 ity of 00:00: [place] 00 Medical Branch Atypical Atypical Disease Active 2020-0 Unive rs chest pain chest pain 1-30 it y of 00:00: [place] 00 Medical Branch 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 a 1-23 ity of 00:00: [place] 00 Medical Branch Meningioma Meningioma Disease Active 2015-[address] 2[facility]15 [facility] Brain Brain Disease Active 2015-[address] [facility] tumor tumor 2-15 [facility] Center Hyperlipid Hyperlipid Disease Active 2015-09 [facility] swan 2-09 [facility] 00:00: of 00 Medicin e BPH BPH Disease Active 2015-09 [facility] (benign (benign 10-21 College prostatic prostatic 00:00: of hyperplasi hyperplasi 00 Me dicin a) a) e History of History of Disease Active 2015-09 [facility] colon colon 10-21 [place] cancer cancer 00:00: of 00 Medicin e Meningioma M[facility]ioma Disease [facility] 2015[facility] 00:00: of 00 Medicin e Tobacco Tobacco Disease Active 2015-09 [facility] abuse abuse 10-21 [facility] 00:00: of 00 Medicin e Preoperati Preoperati Disease Active 2015-09 [facility] ve ve 10-21 [place] cardiovasc cardiovasc 00:00: of ular ular 00 Medicin examinatio examinatio e n n Focal Focal Disease Active 2015-[address] seizure seizure 10-18 [facility] 00 [place] Seizure Seizure Disease Active 2015-[address] 10-18 [facility] 00:[facility]: [facility] 00 [place] Colon Colon Disease Active 2015-[address] cancer cancer 10-18 [facility] 00:[facility]: Medical 00 [place] Alcohol Alcohol Disease Active 2015-[address] abuse abuse 10-18 [facility] 00[facility] 00 Center Hyperlipid Hyperlipid Disease Active 2015-[address] emia emia 10-18 [facility] 00 Center BPH BPH Disease Active 2015-[address] (benign (benign 10-18 [facility] prostatic prostatic 00:00: Medi emmanuel hyperplasi hyperplasi 00 Ce nter a) a) Sleep Sleep Disease Active [facility] apnea apnea 5-14 College 00:00: of 00 Medicin e Chest Chest Disease Active [facility] tightness tightness 5-14 Юлия ege 00:00: of 00 Medicin e Muscle Muscle Disease Active 2009-09 [facility] wasting wasting 10-10 College 00:00: of 00 Medicin e Decreased Decreased Disease Active 2009-09 [facility] appetite appetite 10-10 Colleg e 00:00: of 00 Medicin e Irritable Irritable Disease Active 2009-09 [facility]a 10-10 [facility] 00:00: of 00 Medicin e ADENOCARCI ADENOCARCI Disease Active B [facility] NOMA, NOMA, 3-14 [facility] COLON COLON 00:00: of 00 Medicin e DYSPNEA ON DYSPNEA ON Disease Active [facility] EXERTION EXERTION 8-15 Colleg e 00:00: of 00 Medicin e COUGH COUGH Disease Active [facility] 8-15 College 00:00: of 00 Medicin e CARCINOMA, CARCINOMA, Disease Active [facility] URETER URETER 8-13 College 00:00: of 00 Medicin e Muscle Muscle Problem Active 2022-01-14 Sergei kristina strain strain 23:33:48 l (disorder) (disorder) He rmann Active Problem 01/14/2022 [facility] [place] [facility] [place] of Problem Active 2022-01-14 Me moria urinary urinary 23:33:48 l bladder bladder [place] (finding) (finding) Active Problem 01/14/2022 [facility] Group No known No known Disease Metho di active active st problems problems Hospit a l Allergies, Adverse Reactions, Alerts Allergy Allergy Status Severity Reaction(s) Onset Inactive Treating Comm ents Source Name Type Date Date Clinician HYDROMOR Allergy Active [facility] PHONE 05-03 [facility] HYDROMOR DRUG Active Hallucinates Un pili PHONE INGREDI 05-03 ity of 00:00: [address] Branch Hydromor Propensi Active hallucina [facility] phone ty to 05-03 tions [facility] adverse 00:00: Medical reaction Center s NO KNOWN Allergy Active [facility] S NO KNOWN Drug Active Univers ALLERGIE Class ity of S [facility] Social History Social Habit Start Date Stop Date Quantity Comments Source History of Occasional tobacco Method ist tobacco use smoker Hospital History SDOH [facility] Medical Ce nter Lived Exposure to 2022-05-22 2022-06-01 Not sure University of SARS-CoV-2 00:00:00 18:44:00 [facility] (event) Branch Alcohol intake 2022-05-03 2022-05-03 Current drinker of [facility] 00:[facility]00:00 alcohol (finding) Medical Center History SDOH 2022-01-04 2022-01-[address] [facility] Housing Unable 00:00:00 00:00:00 Medical Ce nter to Pay History SDOH 2022-01-04 2022-01-[address] [facility] Housing Homeless 00:00:00 00:00:00 Medical Center Last Year Tobacco use and 2022-01-03 2022-01-[address] [facility] [facility] kes exposure 00:00:00 00:00:00 [facility] Alcohol Comment 2021-07-07 2021-07-07 wine Sabianist 00:00:00 00:00:00 [facility] Tobacco Comment 2016-08-25 2016-08-25 smokes pipe x6 [facility]00 yrs; previously Medical C enter educated Sex Assigned At [birth year] Sabianist 00:00:00 00:00:00 [facility] Smoking Status Start Date Stop Date Source Social History 2021-12-12 22:47:18 [facility] [place] [facility] Occasional tobacco smoker 2012-01-25 00:00:00 [facility] Medications Ordered Filled Start Stop Current Ordering Indication Dosage Frequency Signature Comments Components Source Medication Medication Date Date Medication? Clinician (SIG) Name Name carbidopa-l 2021-09- Yes 1{tbl} Q.5D TAKE 1 M ethodi evodopa 0-31 01-[address] (SINEMET 00:00: 05:59 MOUTH 2 Hospi ta CR) 50-200 00 :00 (TWO) l mg per CR TIMES A tablet DAY FOR 90 DAYS. econazole Yes QD Apply [facility] nitrate 8-25 topically [facility] (SPECTAZOLE 09:33: daily. Medi emmanuel ) 1 % cream 29 Center tamsulosin Yes .4mg QD Take 0.[address] (FLOMAX) 8-25 mg by [facility] 0.4 mg Cp24 09:33: mouth Medic al 24 hr 29 nightly. [place] capsule finasteride Yes 5mg QD Take [address] (PROSCAR) 5 8-25 by mouth Luke s mg tablet 09:33: nightly. Medi emmanuel 29 Center silver 0 Yes QD Apply [facility] sulfADIAZIN 8-25 topically Kristopher es E 09:33: daily. Medical (SILVADENE, 29 Center SSD) 1 % cream famotidine Yes 20mg Q.5D Take [address] (PEPCID) 20 8-25 by mouth 2 [place] kes MG tablet 09:33: (two) Medical 29 times Center daily. metoprolol 2022-0 Yes hypertensio 50mg QD Take [address] succinate 8-25 n by mouth [facility] (TOPROL-XL) 09:33: daily. Medi emmanuel 50 MG 24 hr 29 Center tablet predniSONE 2021-0 Yes 20mg QD Take [address] (DELTASONE) 8-25 by mouth Luke s 20 MG 09:33: daily. Medical tablet 29 Center apixaban 2021-0 Yes 2.5mg Q.5D Take 2.[address] (Eliquis) 8-25 mg by [facility] 2.5 mg Tab 09:33: mouth 2 Medi emmanuel tablet 29 (two) Center times daily. econazole 2021-0 Yes QD Apply [facility] nitrate 8-25 topically [facility] (SPECTAZOLE 09:33: daily. Medi emmanuel ) 1 % cream 29 Center tamsulosin 0 Yes .4mg QD Take 0.[address] (FLOMAX) 8-25 mg by [facility] 0.4 mg Cp24 09:33: mouth Medic al 24 hr 29 nightly. Center capsule finasteride 2021-0 Yes 5mg QD Take [address] (PROSCAR) 5 8-25 by mouth Luke s mg tablet 09:33: nightly. Medi emmanuel 29 Center silver 2021-0 Yes QD Apply [facility] sulfADIAZIN 8-25 topically Kristopher es E 09:33: daily. Medical (SILVADENE, 29 Center SSD) 1 % cream famotidine 2021-0 Yes 20mg Q.5D Take [address] (PEPCID) 20 8-25 by mouth 2 [place] kes MG tablet 09:33: (two) Medical 29 times Center daily. metoprolol 2021-0 Yes hypertensio 50mg QD Take [address] succinate 8-25 n by mouth [facility] (TOPROL-XL) 09:33: daily. Medi emmanuel 50 MG 24 hr 29 Center tablet predniSONE 2021-0 Yes 20mg QD Take [address] (DELTASONE) 8-25 by mouth Luke s 20 MG 09:33: daily. Medical tablet 29 Center apixaban 2021-0 Yes 2.5mg Q.5D Take 2.[address] (Eliquis) 8-25 mg by [facility] 2.5 mg Tab 09:33: mouth 2 Medi emmanuel tablet 29 (two) Center times daily. meclizine Yes Take by Jemal solorio (ANTIVERT) - mouth. College 12.5 MG 11:52: of tablet 07 Medicin e B 2021- No Take by [facility]-F - 05-04 mouth. Colle ge olic Acid 11:51: 00:00 of (NEPHRO-VIT 48 :00 Medicin E) 0.8 MG e TABS lisinopriL 2021- No hypertensio 20mg QD Take [address] (PRINIVIL,Z 4-26 04-26 n by mouth Kristopher es ESTRIL) 20 13:05: 00:00 daily. Medi emmanuel MG tablet 14 :00 Center lisinopriL 2021- No hypertensio 20mg QD Take [address] (PRINIVIL,Z 4-26 04-26 n by mouth Kristopher es ESTRIL) 20 13:05: 00:00 daily. Medi emmanuel MG tablet 14 :00 Center lisinopriL Yes hypertensio 20mg QD Take [address] (PRINIVIL,Z 4-26 n tablet (20 [place] kes ESTRIL) 20 00:00: mg total) Me dical MG tablet 00 by mouth Center daily Hold this medication until you see your primary care doctor and have blood work repeated. lisinopriL Yes hypertensio 20mg QD Take [address] (PRINIVIL,Z 4-26 n tablet (20 Tracy kes ESTRIL) 20 00:00: mg total) Me dical MG tablet 00 by mouth Center daily Hold this medication until you see your primary care doctor and have blood work repeated. ciprofloxac 2021- No 500mg Q.5D Take [address] in HCl 4- 05-03 tablet [facility] (CIPRO) 500 00:00: 23:59 (500 mg Me dical MG tablet 00 :00 total) by Cente r mouth 2 (two) times daily for 7 days. ciprofloxac 2021- No 500mg Q.5D Take [address] in HCl 4-26 05-03 tablet [facility] (CIPRO) 500 00:00: 23:59 (500 [...] 1 [facility] or ne 4-18 TABLET BY [place] (DECADRON) 00:00: MOUTH of 4 MG tablet 00 TWICE A Medic in DAY e Robaxin 500 Yes 500 mg = 1 [facility] mg oral 4-11 tab, PO, l tablet 19:16: QID, X 7 [place] day, # 28 tab, 0 Refill(s), Pharmacy: [facility] #[id number], 180.34, cm, 12/12/21 18:09:00 CDT, Height, 94.545, kg, 12/12/21 18:09:00 CDT, Weight Robaxin 500 Yes 500 mg = 1 [facility] mg oral 4-11 tab, PO, l tablet 19:16: QID, X 7 [place] day, # 28 tab, 0 Refill(s), Pharmacy: [email or web address] #[id number], 180.34, cm, 12/12/21 18:09:00 CDT, Height, 94.545, kg, 12/12/21 18:09:00 CDT, Weight docusate No Notes: Mem[facility] 4-03 (Same as: l 14:00: Colace) Fredo 00 (Do Not Crush) thiamine No Notes: [facility] 4-03 (Same As: l 14:00: Vitamin [place] 00 B1) docusate No Notes: [facility] 4-03 (Same as: l 14:00: Colace) [place] 00 (Do Not Crush) thiamine No Notes: [facility] 4-03 (Same As: l 14:00: Vitamin Fredo 00 B1) pneumococca No Notes: Sergei kristina l 23-valent 4-02 (Same as: l vaccine 22:55: Pneumovax Sunita nn 45 23) Refrigerat e pneumococca No Notes: Sergei kristina l 23-valent 4-02 (Same as: l vaccine 22:55: Pneumovax Sunita nn 45 23) Refrigerat e Metoprolol 0 Yes 50 mg = 1 Me moria Succinate 4-02 tab, PO, l ER 50 mg 22:55: Daily, # Sunita nn oral 00 30 tab, 0 tablet, Refill(s) extended release predniSONE 2021-0 Yes 20 mg = 1 Me moria 20 mg oral 4-02 tab, PO, l tablet 22:55: Daily, 0 [place] 00 Refill(s) Metoprolol 2021-0 Yes 50 mg = 1 Me moria Succinate 4-02 tab, PO, l ER 50 mg 22:55: Daily, # Sunita nn oral 00 30 tab, 0 tablet, Refill(s) extended release predniSONE 2021-0 Yes 20 mg = 1 Me moria 20 mg oral -02 tab, PO, l tablet 22:55: Daily, 0 Fredo 00 Refill(s) carbidopa-l 2021-0 Yes 1 tab, PO, Memoria evodopa 50 - BID, # 60 l mg-200 mg 22:54: tab, 0 [place] n oral 00 Refill(s) tablet, extended release lisinopril 0 Yes 20 mg = 1 Me moria 20 mg oral 4-02 tab, PO, l tablet 22:54: Daily, # [place] 00 30 tab, 0 Refill(s) carbidopa-l 2021-0 Yes 1 tab, PO, Memoria evodopa 50 - BID, # 60 l mg-200 mg 22:54: tab, 0 [place] n oral 00 Refill(s) tablet, extended release lisinopril 0 Yes 20 mg = 1 Me moria 20 mg oral -02 tab, PO, l tablet 22:54: Daily, # [place] 00 30 tab, 0 Refill(s) Eliquis 5 2021-0 Yes 5 mg, PO, Mem oria mg oral 4-02 Q12H, tab, l tablet 22:53: 0 [place] 00 Refill(s), For Atrial Fibrilatio n Eliquis 5 2021-0 Yes 5 mg, PO, Mem oria mg oral 4-02 Q12H, tab, l tablet 22:53: 0 [place] 00 Refill(s), For Atrial Fibrilatio n hydrALAZINE Yes 50 mg = 1 M emoria 50 mg oral 4-02 tab, PO, l tablet 22:52: BID, 0 Refill(s) hydrALAZINE 0 Yes 50 mg = 1 M emoria 50 mg oral 4-02 tab, PO, l tablet 22:52: BID, 0 Refill(s) D10W 0 No 125 mL, Memoria (bolus) IV 4-02 999 ml/hr, l 22:32: Route: Fredo 00 IVPB, Drug Form: INJ, kg, PRN, PRN Blood Glucose Results, Start date: 12/12/21 17:32:00 CDT, Duration: 30 day, Stop date: 01/11/22 17:31:00 CDT, Infuse over: 0.1 hr, 0 D10W 0 No 125 mL, Memoria (bolus) IV -02 999 ml/hr, l 22:32: Route: IVPB, Drug Form: INJ, kg, PRN, PRN Blood Glucose Results, Start date: 12/12/21 17:32:00 CDT, Duration: 30 day, Stop date: 01/11/22 17:31:00 CDT, Infuse over: 0.1 hr, 0 Dextrose 0 No 25 mL, Memoria 50% Syringe 12-12 Route: l (D50W) 22:06: IVP, kg, PRN, PRN Blood Glucose Results, Start date: 12/12/21 17:06:00 CDT, Duration: 30 day, Stop date: 01/11/22 17:05:00 CDT glucagon 2021-0 No 1 mg, Memoria 12-12 Route: IM, l 22:06: Drug form: [place] 00 PDR/INJ, PRN, kg, PRN Blood Glucose Results, Start date: 12/12/21 17:06:00 CDT, Duration: 30 day, Stop date: 01/11/22 17:05:00 CDT, 0 ondansetron 2021-0 No Notes: Sergei kristina 12-12 (Same as: l 22:06: Zofran) MEDICATION WASTE Product Size: 4 mg Product Wasted: ___ mg melatonin No Notes: Memori a 12-12 (Same as: l 22:06: Melatonin) acetaminoph No Notes: Do M emoria en 12-12 not exceed l 22:06: 4 gm/day. (Same as: Tylenol) Dextrose No 25 mL, Memoria 50% Syringe 12-12 Route: l (D50W) 22:06: IVP, kg, PRN, PRN Blood Glucose Results, Start [...] Yes 1 tab, PO, Dominick evodopa CR 12-12 BID, # 60 Юлия ege 50-200 MG 00:00: tab, 0 of TBCR 00 Refill(s) Medicin e predniSONE Yes TAKE 1 [facility] (DELTASONE) 3-25 TABLET BY Col lege 20 MG 00:00: MOUTH of tablet 00 EVERY Medicin MORNING e WITH FOOD GABAPENTIN 2020-09 Yes TAKE 1 Unive rs 100 mg 1-12 CAPSULE BY ity of capsule 00:00: MOUTH THREE Medical TIMES A Branch DAY GABAPENTIN 2020-09 Yes TAKE 1 Unive rs 100 mg 1-12 CAPSULE BY ity of capsule 00:00: MOUTH THREE Medical TIMES A Branch DAY finasteride 2020-09 Yes 5mg QD Take 5 mg M ethodi (PROSCAR) 5 0-[address] mg tablet 13:24: daily. Hospit a 09 l meclizine 2020-09 Yes Take by Metho di (ANTIVERT) 0-[address] 12.5 mg 13:24: needed for [facility]osp [facility] tablet 09 dizziness. l Does not know dosage finasteride 2020-09 Yes 5mg QD Take 5 mg M ethodi (PROSCAR) 5 0-[address] mg tablet 13:24: daily. Hospit a 09 l meclizine 2020-09 Yes Take by Metho di (ANTIVERT) 0-[address] 12.5 mg 13:24: needed for [facility]osp [facility] tablet 09 dizziness. l Does not know dosage carbidopa-l 2020-09- No 1{tbl} Q.5D Take 1 M ethodi evodopa 0-26 10-[address] (Sinemet 00:00: 00:00 mouth 2 Hospi ta CR) 50-200 00 :00 (two) l mg per CR times a tablet day for 90 days. carbidopa-l 2020-09- No 1{tbl} Q.5D Take 1 M ethodi evodopa 0-26 01-[address] (Sinemet 00:00: 05:59 mouth 2 Hospi ta CR) 50-200 00 :00 (two) l mg per CR times a tablet day for 90 days. gabapentin 2020-09 Yes [id number] 3 (three) Methodi (NEURONTIN) 0-[id number] 100 mg 00:00: 3D day. Hospita capsule 00 l gabapentin 2020-09 Yes [id number] 3 (three) Methodi (NEURONTIN) 0-[id number] 100 mg 00:00: 3D day. Hospita capsule 00 l hydrALAZINE 2020-0 Yes 50 mg = 1 [facility] (APRESOLINE 9-22 tab, PO, Юлия ege ) 50 MG 00:00: BID, 0 of tablet 00 Refill(s) Medicin e hydrALAZINE 2020-0 Yes Q.5D 2 (two) Met hodi (APRESOLINE 9-[address] ) 50 MG 00:00: day. Hospita tablet 00 l hydrALAZINE 2020-0 Yes Q.5D 2 (two) Met hodi (APRESOLINE 9-[address] ) 50 MG 00:00: day. Hospita tablet 00 l Tamsulosin 2020-0 Yes [facility] HCl 0.4 MG 06-02 [facility] CAPS 00:00: of 00 Medicin e tamsulosin 2020-0 Yes Methodi (FLOMAX) 9-21 st 0.4 mg 00:00: Hospita capsule 00 l tamsulosin 2020-0 Yes Methodi (FLOMAX) 9-21 st 0.4 mg 00:00: Hospita capsule 00 l Eliquis 5 2020-0 Yes Q.5D 2 (two) Metho di mg tablet 9-[address] 00:00: day. Hospita 00 l Eliquis 5 2020-0 Yes Q.5D 2 (two) Metho di mg tablet 9-[address] 00:00: day. Hospita 00 l lisinopriL 1-0 Yes 20mg QD 20 mg Method i (PRINIVIL) 9-[address] 20 mg 00:00: Hospita tablet 00 l metoprolol 2021-0 Yes QD daily. Metho di succinate 05-31 st XL 00:00: Hospita (TOPROL-XL) 00 l 50 mg 24 hr tablet lisinopriL 2020-0 Yes 20mg QD 20 mg Method i (PRINIVIL) 9-[address] 20 mg 00:00: Hospita tablet 00 l metoprolol 2021-0 Yes QD daily. Metho di succinate - st XL 00:00: Hospita (TOPROL-XL) 00 l 50 mg 24 hr tablet carbidopa-l 1-0 Yes [id number] 1{tbl} Take 1 Univers evodopa 1-29 tablet by ity of 25-100 mg 00:00: mouth 3 [place] tablet 00 (three) Medical times Branch daily. carbidopa-l Yes [id number] 1{tbl} Take 1 Univers evodopa 1-29 tablet by ity of 25-100 mg 00:00: mouth 3 [place] tablet 00 (three) Medical times Branch daily. apixaban Yes [id number] 5mg Take 1 Univers (ELIQUIS) 5 1-07 tablet by ity of mg tablet 00:00: mouth 2 [place] 00 (two) Medical times Branch daily. Indication s: atrial fibrillati on apixaban Yes 1358 5mg Take 1 Univers (ELIQUIS) 5 1-07 tablet by ity of mg tablet 00:00: mouth 2 [place] 00 (two) Medical times Branch daily. Indication s: atrial fibrillati on nortriptyli 2019-09 Yes 50mg Take 50 mg Univers ne 50 mg 2-28 by mouth ity of capsule 11:32: at [place] [address] bedtime. Medical Branch finasteride 2019-09 Yes 5mg Take 5 mg U nivers 5 mg tablet 2-28 by mouth ity of 11:32: daily. [place] [address] Medical Branch nortriptyli 2019-09 Yes 50mg Take 50 mg Univers ne 50 mg 2-28 by mouth ity of capsule 11:32: at [place] [address] bedtime. Medical Branch finasteride 2019-09 Yes 5mg Take 5 mg U nivers 5 mg tablet 2-28 by mouth ity of 11:32: daily. [address] Branch tamsulosin 2019-09 Yes .4mg Take 0.4 Uni vers (FLOMAX) 2-28 mg by ity of 0.4 mg 24 11:28: mouth [place] hr capsule 44 daily. Medical Branch magnesium 2019-09 Yes Take by Unive rs oxide 400 2-28 mouth ity of mg 11:28: daily. [place] magnesium 44 Indication Medi emmanuel capsule s: Branch "supposed to help with my balance problem" tamsulosin 2019-09 Yes .4mg Take 0.4 Uni vers (FLOMAX) 2-28 mg by ity of 0.4 mg 24 11:28: mouth [place] hr capsule 44 daily. Medical Branch magnesium 2019-09 Yes Take by Unive rs oxide 400 2-28 mouth ity of mg 11:28: daily. [place] magnesium 44 Indication Medi emmanuel capsule s: Branch "supposed to help with my balance problem" lisinopriL 2019-09 Yes [id number] 10mg Take 1 U nivers 10 mg 2-17 tablet by ity of tablet 00:00: mouth 00 daily. Medical Branch lisinopriL 2019-09 Yes [id number] 10mg Take 1 U nivers 10 mg 2-17 tablet by ity of tablet 00:00: mouth 00 daily. Medical Branch hydrALAZINE 2019-09 Yes [id number] 50mg Take 1 Univers 50 mg 0-15 tablet by ity of tablet 00:00: mouth 2 [place] 00 (two) Medical times Branch daily. hydrALAZINE 2019-09 Yes [id number] 50mg Take 1 Univers 50 mg 0-15 tablet by ity of tablet 00:00: mouth 2 [place] (two) Medical times Branch daily. levetiracet 2021- No TAKE 1 [facility] maira am (KEPPRA) 03-16 TABLET BY Co llege 500 MG 00:00: 00:00 MOUTH of tablet 00 :00 TWICE Medicin DAILY e finasteride 2015-09 Yes TK 1 T PO B aylor (PROSCAR) 5 2-26 QD College MG tablet 00:00: of 00 Medicin e Cyanocobala 2015-09- No 1000ug Take 1,000 Dominick min 10-21- mcg by Gore (VITAMIN 00:00: 00:00 mouth of B-12 CR) 00 :00 daily. Medicin 1000 MCG e TBCR sildenafil 2021- No 50mg 1 Tab. Bayl or citrate 01-29 take 1 hr Colleg e (VIAGRA) 50 00:00: 00:00 before of MG tablet 00 :00 sexual Medicin activity e ASPIRIN 81 2006-09 Yes po qd [facility] MG PO TABS 1-27 Gore 00:00: of 00 Medicin e PRED FORTE 2021- No 1 gtt os Ba ylor 1 % OP SUSP 01-17 q4 Gore 00:00: 00:00 of 00 :00 Medicin e Immunizations Ordered Immunization Filled Immunization Date Status Commen ts Source Name Name SARS-COV-2 COVID-19 2021-05-20 Completed Unive rsity of MODERNA VACCINE 00:00:00 [facility] ical Branch SARS-COV-2 COVID-19 2021-05-20 Completed Unive rsity of MODERNA 12+ YRS 00:00:00 [place] [facility] ical VACCINE Branch SARS-COV-2 COVID-19 2020-10-15 Completed Unive rsity of MODERNA VACCINE 00:00:00 [place] [facility] ical [facility] SARS-COV-2 COVID-19 2020-10-15 Completed Unive rsity of MODERNA 12+ YRS 00:00:00 [place] Med ical VACCINE Branch SARS-COV-2 COVID-19 2020-09-17 Completed Unive rsity of MODERNA VACCINE 00:00:00 [place] [facility] ical Branch SARS-COV-2 COVID-19 2020-09-17 Completed Unive rsity of MODERNA 12+ YRS 00:00:00 [facility] ical VACCINE Branch Pneumococcal 2019-10-05 Completed University o f Polysaccharide, 00:00:00 [facility] ical PPSV23 (PNEUMOVAX) Branch Pneumococcal 2019-10-05 Completed University o f Polysaccharide, 00:00:00 [facility] ical PPSV23 (PNEUMOVAX) Branch Influenza High Dose 2019-06-12 Completed Unive rsity of 00:00:00 [facility] Influenza High Dose 2019-06-12 Completed Unive rsity of 00:00:00 [facility] Hepatitis A Adult 2019-03-29 Completed Univers ity of 00:00:00 [facility] Hepatitis A Adult 2019-03-29 Completed Univers ity of 00:00:00 [facility] DTAP 2019-03-12 Completed University of 00:00:00 [facility] DTAP 2019-03-12 Completed University of 00:00:00 [facility] HEPATITIS A 2018-09-29 Completed University of 00:00:00 [facility] TDAP 2018-09-29 Completed University of 00:00:00 [facility] HEPATITIS A 2018-09-29 Completed University of 00:00:00 [facility] TDAP 2018-09-29 Completed University of 00:00:00 [facility] Pneumococcal 2016-08-[address] [facility] Polysaccharide 00:00:00 Medical Ce nter (Pneumovax) Pneumococcal 2016-08-[address] [facility] Polysaccharide 00:00:00 Medical Ce nter (Pneumovax) Influenza (whole) 2016-06-10 Completed [facility] 00:00:00 of Medicine Td 2016-02-09 Completed [facility] 00:00:00 [facility] Td 2016-02-09 Completed [facility] 00:00:00 [facility] Influenza (whole) 2007-07-26 Completed [facility] 00:00:00 of Medicine Influenza (whole) 2006-06-15 Completed [facility] 00:00:00 of Medicine Influenza (whole) 2006-03-09 Completed [facility] 00:00:00 of Medicine Influenza (whole) 2005-11-10 Completed [facility] 00:00:00 of Medicine Influenza (whole) 2005-08-11 Completed [facility] 00:00:00 of Medicine Vital Signs Vital Name Observation Time Observation Value Comments Source Systolic blood 2022-06-01 23:52:00 132 mm[Hg] Univer sity of pressure [facility] Diastolic blood 2022-06-01 23:52:00 71 mm[Hg] [facility]ive [facility] Heart rate 2022-06-01 23:48:00 114 /min [facility] Body temperature 2022-06-01 23:48:00 36.89 Pattie [facility] Respiratory rate 2022-06-01 23:48:00 18 /min [facility] Body height 2022-06-01 23:48:00 180.3 cm [facility] Body weight 2022-06-01 23:48:00 101.424 kg [facility] BMI 2022-06-01 23:48:00 31.19 kg/m2 [facility] Oxygen saturation in 2022-06-01 23:48:00 97 /min [facility] Arterial blood by [facility] Pulse oximetry Branch HEIGHT 2022-05-03 07:32:00 180.3 cm WEIGHT 2022-05-03 07:32:00 100.699 kg HEIGHT 2022-05-03 07:32:00 180.3 cm WEIGHT 2022-05-03 07:32:00 100.699 kg HEIGHT 2022-05-03 07:32:00 180.3 cm WEIGHT 2022-05-03 07:32:00 100.699 kg Systolic blood 2022-01-13 16:42:00 116 mm[Hg] [facility] Medicine Diastolic blood 2022-01-13 16:42:00 70 mm[Hg] [facility] Heart rate 2022-01-13 16:42:00 77 /min [facility] Body height 2022-01-13 16:42:00 180.3 cm [facility] Body weight 2022-01-13 16:42:00 92.987 kg [facility] BMI 2022-01-13 16:42:00 28.59 kg/m2 [facility] Systolic blood 2022-05-03 17:31:00 97 mm[Hg] [facility] Diastolic blood 2022-05-03 17:31:00 50 mm[Hg] [facility] Heart rate 2022-05-03 17:31:00 96 /min [facility] Body temperature 2022-05-03 17:31:00 35.94 Pattie [facility] Respiratory rate 2022-05-03 17:31:00 18 /min [facility] Oxygen saturation in 2022-05-03 17:31:00 100 /min [facility] Arterial blood by Medical Ce nter Pulse oximetry Body height 2022-05-03 07:32:00 180.3 cm [facility] Body weight 2022-05-03 07:32:00 100.699 kg [facility] BMI 2022-05-03 07:32:00 30.96 kg/m2 [facility] Heart Rate 2021-12-13 01:12:[address] [facility] Fredo Respitory Rate 2021-12-13 01:12:24 Memori al Fredo Systolic (mm Hg) 2021-12-13 01:12:14 Sergei rial [place] Diastolic (mm Hg) 2021-12-13 01:12:14 Mem orial Fredo Heart Rate 2021-12-13 01:12:[address] [facility] Temperature Oral (F) 2021-12-13 01:11:[address] [facility] Height 2021-12-12 23:09:[address] [facility] Weight 2021-12-12 23:09:00 [facility] [place] BMI Calculated 2021-12-12 23:09:00 Memori al Fredo Heart Rate 2021-12-12 22:02:05 [facility] [place] Respitory Rate 2021-12-12 22:02:05 Memori al Fredo Systolic (mm Hg) 2021-12-12 22:01:44 Sergei acevedol [place] Diastolic (mm Hg) 2021-12-12 22:01:44 Mem orial [place] Temperature Oral (F) 2021-12-12 22:00:54 97.7 F [facility] [place] Systolic blood 2021-07-07 18:25:00 123 mm[Hg] [facility] pressure Diastolic blood 2021-07-07 18:25:00 72 mm[Hg] Metho dist [facility] pressure Heart rate 2021-07-07 18:25:00 84 /min [facility] Body temperature 2021-07-07 18:17:00 36.28 Pattie Meth [facility] Body height 2021-07-07 18:17:00 177.8 cm [facility] Body weight 2021-07-07 18:17:00 93.895 kg [facility] BMI 2021-07-07 18:17:00 29.70 kg/m2 [facility] Procedures Procedure Date / Time Performing Clinician Source Performed IR NEPHROSTOMY TUBE 2022-05-03 13:35:00 Milad Mendez [facility] POCT-GLUCOSE METER 2022-05-03 09:23:00 Milad Mendez [facility] CBC W/PLT COUNT & AUTO 2022-05-03 09:17:00 Kelle Velazco [facility] DIFFERENTIAL [place] PROTHROMBIN TIME/INR 2022-05-03 09:17:00 Kelle Velazco [facility] CBC W/PLT COUNT & AUTO 2022-05-03 09:17:00 Kelle Velazco [facility] DIFFERENTIAL [place] CULTURE, 2022-01-13 13:03:54 [facility] of URINE/SENSITIVITY ON ALL Medicin e CYTOLOGY, URINE 2022-01-13 13:03:54 [facility] of Medicine POCT URINALYSIS DIPSTICK 2022-01-13 00:00:00 Chris Lazaro [facility] POCT URINALYSIS DIPSTICK 2022-01-13 00:00:00 [facility] POCT-GLUCOSE METER 2022-01-05 11:47:00 [facility] METABOLIC PANEL 2022-01-05 04:12:00 [facility] CBC W/PLT COUNT & AUTO 2022-01-05 04:12:00 [facility] W/PLT COUNT & AUTO 2022-01-05 04:12:00 [facility] DIFFERENTIAL [facility] [place] URINE CULTURE 2022-01-04 20:26:00 [facility] GRAM STAIN 2022-01-04 20:26:00 [facility] IR PERCUTANEOUS 2022-01-04 18:44:00 [facility] NEPHROSTOMY TUBE Center PLACEMENT BASIC METABOLIC PANEL 2022-01-04 04:04:00 [facility] CBC W/PLT COUNT & AUTO 2022-01-04 04:04:00 [facility] DIFFERENTIAL [facility] CBC W/PLT COUNT & AUTO 2022-01-04 04:04:00 [facility] DIFFERENTIAL [facility] [place] URINALYSIS W/ REFLEX 2022-01-03 23:04:00 [facility] URINE CULTURE Center COMPREHENSIVE METABOLIC 2022-01-03 22:44:00 [facility] CBC W/PLT COUNT & AUTO 2022-01-03 22:44:00 [facility] DIFFERENTIAL Center PT/APTT 2022-01-03 22:44:00 [facility] PROTHROMBIN TIME/INR 2022-01-03 22:44:00 [facility] CBC W/PLT COUNT & AUTO 2022-01-03 22:44:00 Michael Burton [facility] MRI BRAIN WO CONTRAST 2021-07-09 19:50:00 Nirav Low Method ist [facility] Evens Tumor destruction [facility] nn Hernia repair [facility] Plan of Care Planned Activity Planned Date Details Comments Source Future Scheduled 2029-03-12 DTAP/TDAP/TD [facility] 00:[facility]00 VACCINES (3 - Td or Medical Center Tdap) [code = DTAP/TDAP/TD VACCINES (3 - Td or Tdap)] Future Scheduled 2029-03-12 DTAP/TDAP/TD [facility] Test 00:00:00 VACCINES (3 - Td or Medical Center Tdap) [code = DTAP/TDAP/TD VACCINES (3 - Td or Tdap)] Future Scheduled 2022-07-15 HEPATITIS B VACCINES [facility] Test 15:44:15 (1 of 3 - 3-dose Hospital series) [code = HEPATITIS B VACCINES (1 of 3 - 3-dose series)] Future Scheduled 2022-07-15 SHINGLES VACCINES (1 [facility] Test 15:44:15 of 2) [code = Hospital SHINGLES VACCINES (1 of 2)] Future Scheduled 2022-07-15 65+ PNEUMOCOCCAL Methodi [facility] Test 15:44:15 VACCINE (2 - PCV) Hospital [code = 65+ PNEUMOCOCCAL VACCINE (2 - PCV)] Future Scheduled 2022-07-15 COVID-19 VACCINE (4 Meth odist Test 15:44:15 - Booster for Hospital Moderna series) [code = COVID-19 VACCINE (4 - Booster for Moderna series)] Future Scheduled 2022-07-15 INFLUENZA VACCINE Method ist Test 15:44:15 [code = INFLUENZA Hospital VACCINE] Future Scheduled 2022-05-[address] [facility] Test 00:00:00 (#1) [code = Medical Center INFLUENZA VACCINE (#1)] Future Scheduled 2022-05-[address] [facility] Test 00:00:00 (#1) [code = Medical Center INFLUENZA VACCINE (#1)] Future Scheduled 2022-05-12 [...] Hospital VACCINE] Future Scheduled 2022-01-13 CULTURE, Ordered: [facility] Юлия ege of Test 13:03:54 URINE/SENSITIVITY ON 01/13/2022 Medicin e ALL [code = 61201-4] Future Scheduled 2022-01-13 CULTURE, Ordered: [facility] Юлия ege of Test 13:03:54 URINE/SENSITIVITY ON 01/13/2022 Medicin e ALL [code = 55879-3] Future Scheduled 2022-01-13 CYTOLOGY, URINE Ordered: [facility] C ollege of Test 13:03:54 [code = 99254] 01/13/2022 Medicine Future Scheduled 2022-01-13 CYTOLOGY, URINE Ordered: [facility] C ollege of Test 13:03:54 [code = 76284] 01/13/2022 Medicine Future Scheduled 2022-01-13 BMI FOLLOW UP PLAN [facility] of Test 12:47:39 [code = BMI FOLLOW Medicine UP PLAN] Future Scheduled 2022-01-13 ZOSTER VACCINE (1 of [facility] of Test 12:47:39 2) [code = ZOSTER Medicine VACCINE (1 of 2)] Future Scheduled 2022-01-13 MEDICARE AWV [facility] Юлия ege of Test 12:47:39 (Initial) [code = Medicine MEDICARE AWV (Initial)] Future Scheduled 2022-01-13 Pneumococcal 65+ (1 [facility] of Test 12:47:39 of 1 - PPSV23) [code Medicin e = Pneumococcal 65+ (1 of 1 - PPSV23)] Future Scheduled 2022-01-13 FLU VACCINE > 6 [facility] C olle of Test 12:47:39 MONTHS [code = FLU Medicine VACCINE > 6 MONTHS] Future Scheduled 2022-01-13 FALL SCREEN [code = [facility] of Test 12:47:39 FALL SCREEN] Medicine Future Scheduled 2022-01-13 TETANUS SHOT (ADULT) [facility] of Test 12:47:39 [code = TETANUS SHOT Medicin e (ADULT)] Future Scheduled 2021-09-19 COVID-19 VACCINE ([address] [facility] Test 00:00:00 - Booster for Medical Center Moderna series) [code = COVID-19 VACCINE (4 - Booster for Moderna series)] Future Scheduled 2021-09-19 COVID-19 VACCINE (4 CHI [...] RISK Medical C enter SCREENING] Future Scheduled 2021-09-[address] [...] 65+ YRS (2 - PCV)] Future Scheduled 2020-10-05 PNEUMOCOCCAL 65+ YRS [facility] Test 00:00:00 (2 - PCV) [code = Medical Ce nter PNEUMOCOCCAL 65+ YRS (2 - PCV)] Future Scheduled 2006-08-[address] [facility] Test 00:00:00 WELLNESS (YEAR 2 or Medical Center FIRST YEAR if no IPPE) [code = MEDICARE ANNUAL WELLNESS (YEAR 2 or FIRST YEAR if no IPPE)] Future Scheduled 2006-08-[address] [facility] Test 00:00:00 WELLNESS (YEAR 2 or Medical Center FIRST YEAR if no IPPE) [code = MEDICARE ANNUAL WELLNESS (YEAR 2 or FIRST YEAR if no IPPE)] Future Scheduled 1990 SHINGLES VACCINES ([address] [facility] Test 00:00:00 of 2) [code = Medical Center SHINGLES VACCINES (1 of 2)] Future Scheduled 1990 SHINGLES VACCINES ([address] [facility] Test 00:00:00 of 2) [code = Medical Center SHINGLES VACCINES (1 of 2)] Future Scheduled [address] [facility] Test 00:00:00 Counseling and Medical Cente r Screening (12+) [code = Tobacco Cessation Counseling and Screening (12+)] Encounters Start End Encounter Admission Attending Care Care Encounter Source Date/Time Date/Time Type Type Clinicians Facility Department ID 2022-01-27 Outpatient WILLARD CONNORS Surgery [id number] [facility] 08:47:36 CHRIS 2021-07-12 Emergency [facility] [id number] [facility]22-[facility]-12 2022-07-12 Refill Reba 1.2.840.1 [id number] Methodi 00:00:00 00:00:00 Dewayne 37399.1.1 800 [facility] 3.430.2.7 Hospit a .3.334910 l .8 2022-06-01 2022-06-01 [facility]patient [facility] [id number] Univers 18:40:00 19:08:11 [facility] 2022-06-01 2022-06-[address] [facility] 1.2.840.114 [id number] Univers 18:40:00 19:08:11 [facility] 350.1.13.10 [facility] 4.2.7.2.686 Too as SONIDO?BLEA [id number] [address] MEDICAL OFFICE BUILDING 2022-05-03 2022-05-03 Outpatient WILLARD SELLERS [facility] [id number] SLE 14:56:33 23:59:00 MILAD 2022-05-03 2022-05-03 [facility] Jason [facility] [id number] 08:00:00 23:59:00 [facility]counter [facility] 2022-05-03 2022-05-03 [facility] Jason [facility] [id number] 08:00:00 23:59:00 Encounter [facility] 2022-05-03 2022-05-03 Outpatient AMBIKA MENDEZ, [facility] Surgery [id number] [facility] 06:36:00 10:35:00 [place] 2022-05-03 2022-05-03 [facility] AMBIKA Mendez [facility] [id number] 06:36:00 10:35:00 Encounter [facility] 2022-05-03 2022-05-03 [facility] [id number] 06:36:00 10:35:00 Encounter [facility] 2022-05-03 2022-05-03 Surgery Virtual, [facility] [id number] 07:30:00 08:00:00 Surgeon [facility] 2022-05-03 2022-05-03 Surgery Jose Francisco, [facility] [id number] 07:30:00 08:00:00 [facility] 2022-05-03 2022-05-[address] [facility] [id number] 00:00:00 00:00:00 Only [facility] 2022-05-03 2022-05-[address] [facility] [id number] [facility] 00:[facility]00 00:00:00 [facility] 2022-05-03 2022-05-[address] [facility] [id number] 00:00:00 00:00:00 Only [facility] 2022-05-03 2022-05-[address] [facility] [id number] [facility] 00:[facility]00 00:00:00 [facility] 2022-04-21 2022-04-[address] [facility] [id number] 00:00:00 00:00:00 Orders [facility] 2022-04-21 2022-04-21 [facility] [id number] 00:00:00 00:00:00 Orders [facility] 2022-01-13 2022-01-13 Office HALIMA LAZARO 1.2.840.114 [id number] [facility] 11:15:18 11:15:18 Visit CHRIS AMBULATOR 350.1.13.21 College Y 0.2.7.2.686 of [id number] Medi jasper 300 e 2022-01-12 2022-01-12 Ambulatory nullFlavo [facility] [id number] Memoria 20:30:00 20:30:00 Pre-Reg r Urology 01 l Yazan Dorsey nn Time Share 2022-01-12 2022-01-12 Ambulatory nullFlavo [facility] [id number] Memoria 20:30:00 20:30:00 Pre-Reg r Urology 01 l Yazan Dorsey nn Time Share 2022-01-12 2022-01-12 Outpatient GIGIIE [facility] [id number] Memoria 15:30:00 15:30:00 01 brant Yoo 2022-01-12 2022-01-12 Outpatient Justin [facility] [id number] 15:30:00 15:30:00 Jazzy Vitale 01 2022-01-03 2022-01-05 [facility] [id number] 20:21:00 15:56:00 [facility] 2022-01-03 2022-01-05 Inpatient ER [facility] Urology [id number] [facility] 20:21:00 15:56:00 2022-01-03 2022-01-05 [facility] [id number] 20:21:00 15:56:00 Encounter Fidel Gonzalez [facility] 2022-01-03 2022-01-[address] [facility] [id number] [facility] 00:00:00 00:00:00 [facility] 2022-01-03 2022-01-[address] [facility] [id number] [facility] 00:[facility]00 00:00:00 [facility] 2021-12-21 2021-12-22 Outpatient nullFlavo [facility] Multi [id number] Memoria 18:35:00 04:59:59 r Specialty 00 l Clinic [facility] 2021-12-21 2021-12-22 Outpatient nullFlavo [facility] Multi [id number] Memoria 18:35:00 04:59:59 r Specialty 00 l Clinic [facility] 2021-12-21 2021-12-21 Outpatient Justin [facility] [id number] 13:35:00 23:59:59 Jazzy L 00 2021-12-21 2021-12-21 Outpatient MHIE IE [id number] Memoria 13:35:00 13:35:00 00 [facility] 2021-12-21 2021-12-[address] [facility] 1.2.840.114 [id number] Univers 00:00:00 00:00:00 [facility] 350.1.13.10 [facility] 4.2.7.2.686 Too as SONIDO?BLEA [id number] Mt migel[address] MEDICAL OFFICE BUILDING 2021-12-12 2021-12-[address] [facility] [id number] Memoria 21:21:00 01:15:00 n r Fredo 92 l [facility] 2021-12-12 2021-12-[address] [facility] [id number] Memoria 21:21:00 01:15:00 n r Fredo 92 l [facility] 2021-12-12 2021-12-12 Outpatient SHARONDA Gould KAYLANI [id number] 16:21:00 20:15:00 Zach 92 [place] 2021-12-02 2021-12-02 Outpatient Brandon MEANS [facility] [id number] Univers 13:00:00 13:45:36 BREANNA ewing [facility] 2021-12-02 2021-12-02 Ancillary Saul Weinberg [facility] 1.2.840. 114 [id number] Univers 13:00:00 13:45:36 Visit Breanna Means COCO 350.1.13.10 [place] PROF[place] [id number] Mt dical NAL 179 [facility] 2021-11-27 2021-11-27 Ancillary Lorri Weinberg [facility] 1.2.840 .114 [id number] Univers 13:00:00 13:40:39 Visit Breanna Means COCO 350.1.13.10 [place] [phone] Mt dical NAL 179 [facility] 2021-11-25 2021-11-25 Ancillary Lorri Weinberg [facility] 1.2.840 .114 [id number] Univers 08:00:00 08:45:00 Visit Clary Breanna L COCO 350.1.13.10 [place] [id number] Mt dical NAL 179 [facility] 2021-11-19 2021-11-19 Ancillary Elena Jaffe [facility] 1.2.84 0.114 [id number] Univers 13:00:00 13:52:36 Visit Breanna Means COCO 350.1.13.10 [place] [id number] Mt dical NAL 179 [facility] 2021-11-09 2021-11-09 Orders Doctor VARGAS 1.2.840.114 [id number] Univers 00:00:00 00:00:00 Only Unassigned, ROSI 350.1.13.10 [place] [facility] 4.2.7.2.686 Too as [id number] [place] [address] [address] 2021-09-13 2021-09-13 Outpatient R [facility] [id number] Univers 14:45:00 14:45:00 ity of [facility] 2021-07-24 2021-07-[address] [facility] 1.2.840.114 [id number] Univers 00:00:00 00:00:00 Jason SEPULVEDA 350.1.13.10 ity of [facility] 4.2.7.2.686 [place] joseph MIMI [id number] Mt j luis CASPER [address] BUILDING 2021-07-09 2021-07-09 [facility], 1.2.840.1 [id number] Methodi 13:19:33 23:59:00 Encounter Dewayne 01534.1.[address] Daren 3.430.2.7 Hospit a .3.868579 l .8 2021-07-09 2021-07-09 Travel 1.2.840.1 1.2.179.462 [id number] Methodi 00:00:00 00:00:[address] 3.430.2.7 0.2.7.3.698 Ho spita .3.834246 084.8 l .8 2021-07-07 2021-07-07 [facility] 1.2.840.1 [id number] Methodi 13:15:00 16:08:39 Visit Dewayne 22813.1.[address] Daren 3.430.2.7 Hospit a .3.026038 l .8 2021-07-07 2021-07-07 Travel 1.2.840.1 1.2.588.553 [id number] Methodi 00:00:00 00:00:[address] 3.430.2.7 0.2.7.3.698 Ho spita .3.370633 084.8 l .8 2021-06-15 2021-06-[address] [facility] 1.2.840.114 [id number] Univers 00:00:00 00:00:00 [facility] 350.1.13.10 ity of [place] 4.2.7.2.686 Too as Sonido?Blea [phone] Mt migelceci elin [address] [facility] 2021-06-12 2021-06-12 Travel 1.2.840.1 1.2.351.525 [id number] Methodi 00:00:00 00:00:[address] 3.430.2.7 0.2.7.3.698 Ho spita .3.629503 084.8 l .8 2021-06-11 2021-06-11 Telephone On, 1.2.840.1 [id number] Methodi 00:00:00 00:00:[address] Daren 3.430.2.7 Hospit a .3.725723 l .8 2021-05-20 2021-05-20 Imm/Inj Nurse, Adc Pob Immunization [facility] 1.2.840.114 [id number] Univers 13:10:10 13:10:33 Visit Anuel Galarza 350.1.13 .10 [facility] [place].2.[place] [id number] [place] dical [address] 2021-05-20 2021-05-20 Outpatient Brandon GALARZA [facility] [id number] Univers 13:10:00 13:10:00 ANUEL ewign [facility] 2021-01-29 2021-01-29 Outpatient R CLARY [facility] [id number] Univers 14:00:00 14:00:00 BREANNA ewing [facility] 2021-01-23 2021-01-23 Orders Doctor SAM 1.2.840.114 [id number] Univers 00:00:00 00:00:00 Only Unassigned, ROSI 350.1.13.10 [facility] [place] [facility] 4.2.7.2.686 Too as [phone] [address] 2021-01-21 2021-01-21 Ancillary Lorri Weinberg [facility] 1.2.840 .114 [id number] Univers 14:01:28 14:41:28 Visit Breanna Means 350.1.13.10 ity of [place] [phone] Mt dical nal 179 [facility] 2021-01-21 2021-01-[address] [facility] 1.2.840.114 [id number] Univers 00:00:00 00:00:00 Jason Sepulveda 350.1.13.10 ity of [place] [phone] Mt dical nal 092 [facility] 2021-01-19 2021-01-19 Ancillary Varsha Bey [facility] 1.2.840. 114 [id number] Univers 14:00:13 14:41:16 Visit Breanna Means 350.1.13.10 it[place] of [place] [phone] Mt dical nal 179 [facility] 2021-01-12 2021-01-12 Ancillary Fercho Samantha [facility] 1.2.840. 114 [id number] Univers 11:08:23 11:48:23 Visit Breanna Means 350.1.13.10 it[place] of [place] [phone] Mt dical nal 179 [facility] 2021-01-06 2021-01-[address] [facility] 1.2.323.755 [id number] Univers 08:31:00 13:37:00 Ricco Sepulveda 350.1.13.10 i ty of [place].2.[place] [phone] [facility] [address] [place] 2021-01-06 2021-01-06 Orders Doctor SAM 1.2.840.114 [id number] Univers 00:00:00 00:00:00 Only Unassigned, ROSI 350.1.13.10 [place] [facility] 4.2.7.2.686 Too as [phone] [facility] [address] [place] 2021-01-01 2021-01-01 Ancillary Varsha Bey [facility] 1.2.840. 114 [id number] Univers 15:17:58 16:03:58 Visit Breanna Means 350.1.13.10 it[place] of [place] [phone] Mt dical nal 179 [facility] 2020-12-30 2020-12-30 Ancillary Varsha Bey [facility] 1.2.840. 114 [id number] [facility] 15:11:48 16:47:07 Visit Breanna Means 350.1.13.10 it[place] [phone] Mt dical nal 179 [facility] 2020-12-25 2020-12-26 Ancillary Varsha Bey [facility] 1.2.840. 114 [id number] [facility] 15:13:25 08:42:39 Visit Breanna Means 350.1.13.10 it[place] of [place] [phone] Mt dical nal 179 [facility] 2020-12-23 2020-12-23 Ancillary Shirley Banks [facility] 1 .2.840.114 [id number] [facility] 11:09:48 12:04:08 Visit Breanna Means 350.1.13.10 ity of [place].2.[place] [phone] Mt dical nal 179 [facility] 2020-12-18 2020-12-18 Ancillary Shirley Banks [facility] 1 .2.840.114 [id number] Univers 09:53:00 10:42:16 Visit Breanna Means 350.1.13.10 it[place] of [place].2.[place] [phone] Mt dical nal 179 [facility] 2020-12-18 2020-12-18 Outpatient R CLARY [facility] [id number] [facility] 10:20:00 10:20:00 BREANNA ewing of [facility] 2020-12-18 2020-12-18 Orders Doctor VARGAS 1.2.840.114 [id number] Univers 00:00:00 00:00:00 Only Unassigned, ROSI 350.1.13.10 [place] [facility] 4.2.7.2.686 Too as [phone] [address] 2020-12-10 2020-12-[address] [facility] 1.2.508.829 [id number] Univers 00:00:00 00:00:00 Brendan Densonton 350.1.13.10 ity of [place].2.[place] [phone] Mt dicnd nal 059 [facility] 2020-12-08 2020-12-08 Orders Doctor SAM 1.2.840.114 [id number] Univers 00:00:00 00:00:00 Only Unassigned, ROSI 350.1.13.10 [place] [facility] 4.2.7.2.686 Too as [phone] [address] 2020-12-04 2020-12-[address] [facility] 1.2.840.114 [id number] Univers 00:00:00 00:00:00 Jason Sepulveda 350.1.13.10 it[place] of [place] [phone] [address] 2020-11-24 2020-11-24 Office Luís SCKUNAL 1.2.840.114 [id number] Univers 15:26:22 16:30:45 Visit Jason Sepulveda 350.1.13.10 ity of [place].2.[place] [phone] Mt dic[address] 2020-11-24 2020-11-24 Outpatient JASON PARIS [facility] [id number] Univers 15:40:00 15:40:00 JASON STALEY [facility] 2020-11-20 2020-11-20 Outpatient JASON PARIS [facility] [id number] Univers 13:00:00 13:00:00 JASON STALEY [facility] 2020-11-04 2020-11-04 Office Luís SCKUNAL 1.2.840.114 [id number] Univers 15:59:56 17:20:37 Visit Jason Sepulveda 350.1.13.10 ity [facility] 4[place]2.7.2.[place] [phone] Mt dical nal 092 [facility] 2020-11-04 2020-11-04 Outpatient JASON PARIS [facility] [id number] Univers 16:00:00 16:00:00 JASON STALEY [facility] 2020-10-15 2020-10-15 Outpatient Brandon JENKINS [facility] [id number] Univers 11:10:00 11:10:00 ASTRID [facility] 2020-10-10 2020-10-[address] [facility] 1.2.840.114 [id number] Univers 10:45:46 14:13:12 Visit Jason Sepulveda 350.1.13.10 ity [facility] [place]2.7.2.[place] [phone] Mt dical nal [address] [place] [address] 2020-10-10 2020-10-10 Outpatient Brandon JASON STALEY [facility] [id number] Univers 11:00:00 11:00:00 JASON STALEY ashtyn [facility] 2020-10-08 2020-10-08 [facility] 1.2.808.319 [id number] Univers 09:48:22 23:59:00 Encounter Jason VYAS 350.1.13.10 ity [place]2.[place] [phone] Mt j luis EASON 805 [facility] 2020-10-08 2020-10-08 Outpatient Brandon JASON STALEY [facility] [id number] Univers 10:00:00 10:00:00 JASON STALEY [facility] 2020-10-08 2020-10-08 [facility] 1.2.464.225 [id number] Univers 09:47:36 09:47:36 Encounter Jason VYAS 350.1.13.10 ity [place]2.[place] [phone] Mt dicceci VICTORY 805 [facility] 2020-10-08 2020-10-08 Hospital [facility] 1.2.333.317 [id number] Univers 09:46:50 09:46:50 Encounter Jason VYAS 350.1.13.10 ity of [facility] 4.2.7.2.[place] [phone] Mt dicceci EASON 805 [facility] 2020-09-30 2020-09-30 Telephone [facility] 1.2.840.114 [id number] Univers 00:00:00 00:00:00 Jason Sepulveda 350.1.13.10 ity of [place].2.[place] [phone] Mt dical nal 092 [facility] 2020-09-19 2020-09-19 [facility] 1.2.840.114 [id number] Univers 14:31:34 15:40:16 Visit Jason Sepulveda 350.1.13.10 ity of [place]2.[place] [phone] Mt dicnd nal 092 [facility] 2020-09-19 2020-09-19 Outpatient JASON PARIS [facility] [id number] Univers 14:40:00 14:40:00 JASON STALEY [facility] 2020-09-17 2020-09-17 Outpatient Brandon JENKINS [facility] [id number] Univers 10:50:00 10:50:00 ASTRID [facility] 2020-09-17 2020-09-[address] [facility] 1.2.840.114 [id number] Univers 00:00:00 00:00:00 Brendan Sepulveda 350.1.13.10 ity of [place] [phone] Mt dical nal 059 [facility] 2020-09-15 2020-09-15 Orders Doctor VARGAS 1.2.840.114 [id number] Univers 00:00:00 00:00:00 Only Unassigned, ROSI 350.1.13.10 [place] [facility] 4.2.7.2.686 Too as [phone] [address] 2020-09-10 2020-09-[address]ís [facility] 1.2.840.114 [id number] Univers 00:00:00 00:00:00 Jason Sepulveda 350.1.13.10 ity of [place].2.[place] [phone] Mt dical nal 092 [facility] 2020-09-09 2020-09-09 [place] [employer], [facility] 1.2.840.114 [id number] Univers 10:13:23 10:28:23 Visit LuísJason liz Jeffry Sepulveda 350.1.13 .10 ity of [place].2.[place] [phone] Mt dical nal 353 [facility] 2020-09-09 2020-09-09 Outpatient R JASON STALEY [facility] [id number] Univers 10:15:00 10:15:00 LUÍS JASON ity [facility] 2020-09-08 2020-09-08 Office Luís, [facility] 1.2.840.114 [id number] Univers 11:02:00 12:00:27 Visit Jason Jeffry Sepulveda 350.1.13.10 ity of [place].7.2.[place] [phone] Mt dical nal 092 [facility] 2020-09-08 2020-09-08 Outpatient R JASON STALEY [facility] [id number] Univers 11:00:00 11:00:00 JASON STALEY ity of [facility] 2020-08-28 2020-08-[address] [facility] 1.2.840.114 [id number] Univers 00:00:00 00:00:00 Brendan Sepulveda 350.1.13.10 ity of [place].2.[place] [phone] Mt dical nal 059 [facility] 2020-08-20 2020-08-20 Ancillary Saul Weinberg [facility] 1.2.840. 114 [id number] Univers 14:56:11 15:36:11 Visit Breanna Means 350.1.13.10 it[place] of [place] 4[place].2.[place] [phone] Mt dical nal 179 [facility] 2020-08-20 2020-08-20 [facility] [id number] Univers 15:00:00 15:00:00 BREANNA ity of [facility] 2020-08-06 2020-08-[address] Luís [facility] 1.2.840.114 [id number] Univers 00:00:00 00:00:00 Jason Sepulveda 350.1.13.10 it[place] of [place].2.[place] [phone] Mt dical nal 092 [facility] 2020-08-06 2020-08-06 Orders Doctor SAM 1.2.840.114 [id number] Univers 00:00:00 00:00:00 Only Unassigned, ROSI 350.1.13.10 [place] [facility] 4.2.7.2.686 Too as [phone] [address] 2020-08-05 2020-08-05 Ancillary Saul Weinberg [facility] 1.2.840. 114 [id number] Univers 16:31:08 17:11:08 Visit Breanna Means 350.1.13.10 it[place] of [place].2.[place] [phone] Mt dical nal 179 [facility] 2020-07-29 2020-07-29 Ancillary Saul Weinberg [facility] 1.2.840. 114 [id number] Univers 15:31:18 16:11:18 Visit Breanna Means 350.1.13.10 it[place] of [place].2.[place] [phone] Mt dical nal 179 [facility] 2020-07-28 2020-07-28 Outpatient R RAFAEL [facility] [id number] Univers 11:20:00 11:20:00 BRENDAN fuentesy o f [facility] 2020-07-23 2020-07-23 Orders Doctor SAM 1.2.840.114 [id number] Univers 00:00:00 00:00:00 Only Unassigned, ROSI 350.1.13.10 [facility] 4.2.7.2.686 Too [place] [phone] [address] 2020-07-22 2020-07-22 Ancillary Saul Weinberg [facility] 1.2.840. 114 [id number] Univers 14:59:34 15:39:34 Visit Breanna Means 350.1.13.10 ity of [place].2.[place] [phone] Mt dical nal 179 [facility] 2020-07-15 2020-07-15 Ancillary Lorri Weinberg [facility] 1.2.840 .114 [id number] Univers 14:30:20 15:10:20 Visit Breanna Means 350.1.13.10 it[place] of [place].2.[place] [phone] Mt dical nal 179 [facility] 2020-07-15 2020-07-15 [facility] [id number] Univers 14:40:00 14:40:00 BREANNA ity [facility] 2020-07-11 2020-07-[address] [facility] 1.2.840.114 [id number] Univers 00:00:00 00:00:00 Brendan Sepulveda 350.1.13.10 it[place] of [place].2.[place] [phone] Mt dical nal 059 [facility] 2020-07-10 2020-07-10 Ancillary Jagdeep Elizabeth Shirley [facility] 1 .2.840.114 [id number] Univers 13:40:27 14:20:27 Visit Breanna Means 350.1.13.10 it[place] of [place].2.[place] [phone] Mt dical nal 179 [facility] 2020-07-09 2020-07-09 Ancillary Samantha Brantley [facility] 1.2.840. 114 [id number] Univers 10:32:38 11:12:38 Visit Breanna Means 350.1.13.10 it[place] of [place] 4[place].2.[place] [phone] Mt dical nal 179 [facility] 2020-07-09 2020-07-09 Outpatient R [facility] [id number] Univers 10:40:00 10:40:00 ity of [facility] 2020-07-04 2020-07-04 Ancillary Shirley Banks [facility] 1 .2.840.114 [id number] [facility] 11:16:46 11:56:46 Visit Breanna Means 350.1.13.10 it[place] of [place].2.[place] [phone] Mt dical nal 179 [facility] 2020-06-26 2020-06-26 Ancillary Lorri Weinberg [facility] 1.2.840 .114 [id number] Univers 12:03:21 12:43:21 Visit Breanna Means 350.1.13.10 ity of [place].2.[place] [phone] Mt dical nal 179 [facility] 2020-06-26 2020-06-[address] [facility] 1.2.840.114 [id number] Univers 00:00:00 00:00:00 Brendan Sepulveda 350.1.13.10 ity of [place].2.[place] [phone] Mt dical nal 059 [facility] 2020-06-24 2020-06-24 Ancillary Varsha Bey Manjinder [facility] 1.2.840. 114 [id number] Univers 11:37:06 12:17:06 Visit Breanna Means 350.1.13.10 ity of [place] 4[place].7.2.[place] [phone] Mt dical nal 179 [facility] 2020-06-19 2020-06-19 Ancillary Shirley Banks [facility] 1 .2.840.114 [id number] Univers 11:29:43 14:07:55 Visit Breanna Means Coco 350.1.13.10 ity of [place] 4[place].7.2.[place] [phone] Mt dical nal 179 [facility] 2020-06-19 2020-06-19 Outpatient R [facility] [id number] Univers 11:20:00 11:20:00 ity of [facility] 2020-06-17 2020-06-17 Ancillary Varsha Bey [facility] 1.2.840. 114 [id number] Univers 11:24:28 12:04:28 Visit Breanna Means Brant Sepulveda 350.1.13.10 ity of [place] 4[place].2.[place] [phone] Mt dical nal 179 [facility] 2020-06-13 2020-06-13 Orders Doctor VARGAS 1.2.840.114 [id number] Univers 00:00:00 00:00:00 Only Unassigned, ROSI 350.1.13.10 [facility] 4.2.7.2.686 Too [place] [phone] [address] 2020-06-11 2020-06-11 Ancillary Jagdeep Glenn Shirley [facility] 1 .2.840.114 [id number] Univers 14:07:48 16:06:14 Visit Breanna Means Coco 350.1.13.10 ity of [place].2.[place] [phone] Mt dical nal 179 [facility] 2020-06-11 2020-06-11 Outpatient [facility] [id number] Univers 14:20:00 14:20:00 BREANNA ity of [facility] 2020-05-05 2020-05-[address] [facility] 1.2.814.268 [id number] Univers 00:00:00 00:00:00 Brendan Sepulveda 350.1.13.10 it[place] of [place]2.[place] [phone] Mt dical nal 059 [facility] 2020-05-03 2020-05-03 Nurse SAM Figueredo 1.2.840.114 [id number] Univers 00:00:00 00:00:00 Triage Amie ARANDA 350.1.13.10 it y of HOSPITAL 4.2.7.2.686 Too as [phone] [address] 2020-04-10 2020-04-10 Ancillary Shirley Banks [place] 1 .2.840.114 [id number] Univers 15:27:41 16:07:41 Visit Breanna Means 350.1.13.10 ity of [place] 4[place].2.[place] [phone] Mt dical nal 179 [facility] 2020-04-08 2020-04-08 Ancillary Lorri Weinberg [facility] 1.2.840 .114 [id number] Univers 15:29:47 16:09:47 Visit Breanna Maens 350.1.13.10 ity of [place] 4[place].7.2.[place] [phone] Mt dical nal 179 [facility] 2020-04-04 2020-04-04 Ancillary Lorri Weinberg [facility] 1.2.840 .114 [id number] Univers 14:18:04 14:58:04 Visit Breanna Means 350.1.13.10 ity of [place] 4[place].2.[place] [phone] Mt dical nal 179 [facility] 2020-04-03 2020-04-[address] [facility] 1.2.840.114 [id number] [facility] 00:00:00 00:00:00 Brendan Sepulveda 350.1.13.10 ity of [place].7.2.[place] [phone] Mt dical nal 059 [facility] 2020-04-02 2020-04-02 Ancillary Lorri Weinberg [facility] 1.2.840 .114 [id number] Univers 14:59:32 15:39:32 Visit Breanna Means 350.1.13.10 it[place] of [place] 4[place].2.[place] [phone] Mt dical nal 179 [facility] 2020-03-26 2020-03-26 Tele[address] Luís [facility] 1.2.840.114 [id number] Univers 00:00:00 00:00:00 Jason Teran Coco 350.1.13.10 ity of [place] 4[place].7.2.[place] [phone] Mt dical nal 092 [facility] 2020-03-20 2020-03-20 Ancillary Saul Weinberg [facility] 1.2.840. 114 [id number] Univers 15:27:33 16:07:33 Visit Breanna Means 350.1.13.10 ity of [place] 4[place].7.2.[place] [phone] Mt dical nal 179 [facility] 2020-03-13 2020-03-13 Outpatient R [facility] [id number] Univers 15:40:00 15:40:00 ity of [facility] 2020-03-11 2020-03-11 Ancillary Saul Weinberg [facility] 1.2.840. 114 [id number] Univers 15:30:10 16:10:10 Visit Breanna Means 350.1.13.10 it[place] of [place] 4[place]7.2.[place] [phone] Mt dical nal 179 [facility] 2020-03-06 2020-03-06 Ancillary Lenard Lorri K [facility] 1.2.840 .114 [id number] Univers 15:36:47 16:16:47 Visit Breanna Means 350.1.13.10 ity of [place] 4[place].7.2.[place] [phone] Mt dical nal 179 [facility] 2020-03-03 2020-03-03 Ancillary Saul Weinberg [facility] 1.2.840. 114 [id number] Univers 15:41:05 16:21:05 Visit Breanna Means 350.1.13.10 ity of [place] 4[place].7.2.[place] [phone] Mt dical nal 179 [facility] 2020-02-27 2020-02-28 Ancillary Saul Weinberg [facility] 1.2.840. 114 [id number] Univers 14:57:04 13:44:25 Visit Breanna Means 350.1.13.10 ity of [place] 4[place].7.2.[place] [phone] Mt dical nal 179 [facility] 2020-02-21 2020-02-[address] [facility] 1.2.840. 114 [id number] Univers 14:15:09 14:55:09 Visit Breanna Means 350.1.13.10 ity of [place] 4[place].7.2.[place] [phone] Mt dical nal 179 [facility] 2020-02-18 2020-02-18 Ancillary Saul Weinberg [facility] 1.2.840. 114 [id number] [facility] 14:10:56 14:50:56 Visit Breanna Means 350.1.13.10 it[place] of [place] 4[place].7.2.[place] [phone] Mt dical nal 179 [facility] 2020-02-13 2020-02-13 Ancillary Shirley Banks [facility] 1 .2.840.114 [id number] Univers 13:40:00 14:24:13 Visit Breanna Means 350.1.13.10 it[place] of [place] 4[place].7.2.[place] [phone] Mt dical nal 179 [facility] 2020-02-11 2020-02-11 Outpatient Brandon MEANS [facility] [id number] Univers 15:20:00 15:20:00 BREANNA ity of [facility] 2020-02-08 2020-02-08 Ancillary Jagdeep ElizabethMagalyShirley [facility] 1 .2.840.114 [id number] Univers 13:04:37 14:04:37 Visit Breanna Means 350.1.13.10 ity of [place].2.[place] [phone] Mt dical nal 179 [facility] 2020-02-06 2020-02-06 Ancillary Lorri Weinberg [facility] 1.2.840 .114 [id number] Univers 13:02:54 14:02:54 Visit Breanna Means 350.1.13.10 it[place] of [place].2.[place] [phone] Mt dical nal 179 [facility] 2020-02-06 2020-02-[address] [facility] 1.2.840.114 [id number] Univers 00:00:00 00:00:00 Breanna [facility] 350.1.13.10 it y of Surgical 4.2.7.2.686 Too as Specialti [phone] Mt dical es 198 [facility] 2020-02-05 2020-02-[address] [facility] 1.2.263.288 [id number] Univers 00:00:00 00:00:00 Brendan Sepulveda 350.1.13.10 ity of [place] [phone] Mt dical nal 059 [facility] 2020-01-31 2020-01-31 [facility] 1.2.690.065 [id number] Univers 13:13:50 14:01:29 Visit Breanna Becker 350.1.13.10 it y of Surgical 4.2.7.2.686 Too as Specialti [phone] Mt dical es 198 [facility] 2020-01-31 2020-01-31 [facility] 1.2.840.114 [id number] Univers 08:43:00 08:43:00 Encounter Chris Canadensis 350.1.13.10 it[place] [facility]2.7.2.[facility] [phone] [address] 2020-01-31 2020-01-31 [facility] 1.2.840.114 [id number] Univers 08:43:00 08:43:00 Encounter Chris Canadensis 350.1.13.10 ity of [place] 4.2.7.2.686 [facility] [phone] [address] 2020-01-31 2020-01-31 Outpatient R [facility] [id number] Univers 08:42:11 08:42:00 CHRIS ity of [facility] 2020-01-31 2020-01-31 [facility] 1.2.840.114 [id number] Univers 08:42:00 08:42:00 Encounter Chris Canadensis 350.1.13.10 [place] of [place].2.[place] [id number] [address] 2020-01-31 2020-01-31 [facility] 1.2.840.114 [id number] Univers 08:42:00 08:42:00 Encounter Chris [place] [id number] [id number] [id number] [address] 2020-01-31 2020-01-31 [facility] [id number] Univers 00:00:00 00:00:00 Gene [place] [id number] [id number] [phone] [place] dical nal 059 [facility] 2020-01-29 2020-01-29 Ancillary Shirley Banks [facility] 1 .2.840.114 [id number] Univers 13:41:12 14:41:12 Visit Breanna Means [id number] [id number] [phone] Mt dical nal 179 [facility] 2020-01-29 2020-01-29 Outpatient R [facility] [id number] Univers 13:00:00 13:00:00 BREANNA ewing of [facility] 2020-01-21 2020-01-21 [facility] [id number] Univers 11:40:00 11:40:00 BRENDAN ewing o f [facility] 2020-01-21 2020-01-21 [facility] 1.2.840.114 [id number] Univers 08:09:01 08:29:01 ne Visit Brendan Sepulveda [id number] [id number] [id number] Mt dical nal 059 [facility] 2020-01-18 2020-01-18 [facility] 1.2.840.114 [id number] Univers 09:02:21 09:34:47 Visit Mariana Canales [facility] [id number] it y of Surgical [id number] Too as Specialti [phone] Mt dical es 198 [facility] 2020-01-18 2020-01-18 Outpatient R RU [facility] [id number] Univers 09:15:00 09:15:00 MARIANA ity of [facility] 2020-01-13 2020-01-13 [facility] 1.2.840.114 [id number] Univers 00:00:00 00:00:00 Christianoyanet Canadensis 350.1.13.10 it[place] of [place] [phone] [facility] nal 9 [facility] 2020-01-03 2020-01-03 [facility] 1.2.840.114 [id number] Univers 00:00:00 00:00:00 Brendan Sepulveda 350.1.13.10 it[place] of [place] [phone] Mt dicnd nal 059 [facility] 2019-12-20 2019-12-20 [facility] 1.2.840.114 [id number] Univers 00:00:00 00:00:00 Brendan Sepulveda 350.1.13.10 it[place] of [place] [phone] Mt dical nal 059 [facility] 2019-12-05 2019-12-05 [facility] 1.2.840.114 [id number] Univers 00:00:00 00:00:00 Jason Sepulveda 350.1.13.10 it[place] of [place] [phone] [facility] nal 092 [facility] 2019-12-04 2019-12-04 [facility] [id number] Univers 11:00:00 11:00:00 CHRIS ity of [facility] 2019-12-04 2019-12-04 Tele[facility]ici [facility] 1.2.840.114 [id number] Univers 10:20:22 10:40:22 ne Visit Chris Densonton 350.1.13.10 ity of [place] [phone] Mt dicnd nal [address] [place] [address] 2019-12-04 2019-12-04 Telephone [facility] 1.2.656.715 [id number] Univers 00:00:00 00:00:00 Chris Canadensis 350.1.13.10 i [place] of [place] [phone] Mt dicnd nal [address] [place] [address] 2019-11-29 2019-11-29 Outpatient R JASON STALEY [facility] [id number] Univers 12:08:34 23:59:00 JASON STALEY ity [facility] 2019-11-29 2019-11-29 [facility] 1.2.963.852 [id number] Univers 12:08:00 23:59:00 Encounter Jason Sepulveda 350.1.13.10 it[place] of [place] [phone] [facility] [address] [place] 2019-10-09 2019-11-27 Office [facility] 1.2.840.114 [id number] Univers 14:55:57 08:46:19 Visit Brendan Sepulveda 350.1.13.10 ity of [place] [phone] Mt dicnd nal 9 [facility] 2019-11-22 2019-11-22 [facility] 1.2.840.114 [id number] Univers 00:00:00 00:00:00 Ronstephanieyanet Canadensis 350.1.13.10 it[place] of [place] [phone] Mt dical nal 059 [facility] 2019-11-19 2019-11-19 Ancillary Shirley Banks [facility] 1 .2.840.114 [id number] Univers 14:02:31 14:42:31 Visit Breanna Means 350.1.13.10 ity of [place] [phone] Mt dical nal 179 [facility] 2019-11-15 2019-11-15 [facility] [id number] Univers 11:20:00 11:20:00 BREANNA fuentesashtyn [facility] 2019-11-08 2019-11-08 Ancillary Shirley Banks [facility] 1 .2.840.114 [id number] Univers 11:11:28 11:47:28 Visit Breanna Means 350.1.13.10 ity of [place] [phone] Mt dical nal 179 [facility] 2019-10-19 2019-11-07 Ancillary Lorri Weinberg Edi [facility] 1.2.840 .114 [id number] Univers 10:14:18 08:52:42 Visit Breanna Means 350.1.13.10 ity of [place] [phone] Mt dical nal 179 [facility] 2019-11-06 2019-11-06 Ancillary Shirley Banks [facility] 1 .2.840.114 [id number] Univers 10:33:10 11:13:10 Visit Breanna Means 350.1.13.10 ity of [place] [phone] Mt dical nal 179 [facility] 2019-11-06 2019-11-06 Outpatient R CLARY [facility] [id number] Univers 10:40:00 10:40:00 BREANNA kaylin [facility] 2019-11-05 2019-11-[address] [facility] 1.2.840.114 [id number] Univers 00:00:00 00:00:00 Brendan Sepulveda 350.1.13.10 ity of [place] [phone] Mt dical nal 059 [facility] 2019-11-05 2019-11-[address] [facility] 1.2.840.114 [id number] Univers 00:00:00 00:00:00 Ronjohn Coco 350.1.13.10 ity of [place] [phone] Mt dical nal 059 [facility] 2019-11-01 2019-11-01 Ancillary Shirley Banks [place] 1 .2.840.114 [id number] Univers 11:06:32 11:46:32 Visit Breanna Means 350.1.13.10 ity of [place] [phone] Mt dical nal 179 [facility] 2019-10-29 2019-10-29 Ancillary Shirley Banks [facility] 1 .2.840.114 [id number] Univers 11:11:05 11:51:05 Visit Breanna Means 350.1.13.10 ity of [place] [phone] Mt dical nal 179 [facility] 2019-10-26 2019-10-26 Ancillary Lorri Weinberg [place] 1.2.840 .114 [id number] Univers 10:35:15 11:26:09 Visit Breanna Means 350.1.13.10 ity of [place] [phone] Mt dical nal 179 [facility] 2019-10-25 2019-10-25 SAM Kamara 1.2.840.114 [id number] Univers 00:00:00 00:00:00 Management Jelly ARANDA 350.1.13.10 ity of [facility] 4.2.7.2.686 Too as [phone] [address] 2019-10-25 2019-10-[address]ís [facility] 1.2.840.114 [id number] Univers 00:00:00 00:00:00 Jason Jeffry Sepulveda 350.1.13.10 ity of [place] [phone] Mt dical nal 092 [facility] 2019-10-24 2019-10-24 Ancillary Lorri Weinberg [facility] 1.2.840 .114 [id number] Univers 11:14:15 11:54:15 Visit rBeanna Means 350.1.13.10 it[place] of [place] [phone] Mt dical nal 179 [facility] 2019-10-24 2019-10-[address] [facility] 1.2.606.764 [id number] Univers 00:00:00 00:00:00 Christianoyanet Coco 350.1.13.10 ity of [place] [phone] Mt dical nal 059 [facility] 2019-10-23 2019-10-23 Ancillary Lorri Weinberg [facility] 1.2.840 .114 [id number] Univers 15:30:50 16:10:50 Visit Breanna Means 350.1.13.10 ity of [place] [phone] Mt dical nal 179 [facility] 2019-10-23 2019-10-23 [facility] Luís [facility] 1.2.840.114 [id number] [facility] Univers 13:32:50 14:33:50 Visit Jason Sepulveda 350.1.13.10 ity of [place] [phone] Mt dical nal 092 [facility] 2019-09-17 2019-10-22 Ancillary Shirley Banks [facility] 1 .2.840.114 [id number] Univers 09:01:46 09:42:22 Visit Breanna Means 350.1.13.10 ity of [place] [phone] Mt dical nal 179 [facility] 2019-10-19 2019-10-19 Orders Doctor SAM 1.2.840.114 [id number] Univers 00:00:00 00:00:00 Only Unassigned, ROSI 350.1.13.10 [place] [facility] 4.2.7.2.686 Too as [phone] [address] 2019-10-18 2019-10-[address] [facility] 1.2.840.114 [id number] Univers 13:50:43 13:50:58 Visit Sendil Mackenzie Sepulveda 350.1.13.10 ity of [place] [phone] Mt dicnd nal 059 [facility] 2019-10-18 2019-10-18 Outpatient R JULISA [facility] [id number] Univers 10:30:00 13:50:58 SENDIL ity [facility] 2019-10-18 2019-10-18 [facility]phone [facility] 1.2.444.650 [id number] Univers 00:00:00 00:00:00 Brendan Sepulveda 350.1.13.10 ity of [place] [phone] Mt dical nal 059 [facility] 2019-10-18 2019-10-18 Orders Doctor SAM 1.2.840.114 [id number] Univers 00:00:00 00:00:00 Only Unassigned, ROSI 350.1.13.10 [place] [facility] 4.2.7.2.686 Too as [phone] [address] 2019-10-15 2019-10-15 Transition Aki Levy 1.2.840.114 [id number] Univers 00:00:00 00:00:00 of Care Martha Short 350.1.13.10 it y of [place] [phone] [address] 2019-10-12 2019-10-12 Outpatient R CLARY [facility] [id number] Univers 11:20:00 11:20:00 BREANNA ity [facility] 2019-10-09 2019-10-09 Outpatient R RAFAEL, [facility] [id number] Univers 15:00:00 16:27:15 QIANGJUN ity o f [facility] 2019-10-09 2019-10-09 Ancillary Lorri Weinberg [facility] 1.2.840 .114 [id number] Univers 10:28:34 11:37:49 Visit Breanna Means 350.1.13.10 ity of [place] [phone] Mt dical nal 179 [facility] 2019-10-08 2019-10-08 Transition Aki Lowe 1.2.840.114 [id number] Univers 00:00:00 00:00:00 of Care Yenifermaria del carmen Short 350.1.13.10 it y of [place].2.[place] [phone] [facility] [address] 2019-10-04 2019-10-05 Emergency Yuliana Harley [facility] 1.2.840.1 14 [id number] Univers 16:52:17 16:50:00 Efe Pugh 350.1.13.10 ity of [place] [phone] [facility] [address] 2019-10-03 2019-10-03 Ancillary Lorri Weinberg [facility] 1.2.840 .114 [id number] Univers 15:03:32 15:43:32 Visit Breanna Means 350.1.13.10 ity of [place] [phone] Mt dical nal 179 [facility] 2019-09-28 2019-09-28 Ancillary Shirley Banks [facility] 1 .2.840.114 [id number] Univers 10:51:31 11:58:26 Visit Breanna Means 350.1.13.10 ity of [place].2.[place] [phone] Mt dical nal 179 [facility] 2019-09-27 2019-09-27 Ancillary Lorri Weinberg [facility] 1.2.840 .114 [id number] [facility] 13:04:43 13:49:43 Visit Breanna Means 350.1.13.10 ity of [place].2.[place] [phone] Mt dical nal 179 [facility] 2019-09-27 2019-09-27 Orders Doctor SAM 1.2.840.114 [id number] Univers 00:00:00 00:00:00 Only Unassigned, ROSI 350.1.13.10 ity of [facility] 4.2.7.2.686 Too as [phone] [facility] [address] 2019-09-25 2019-09-25 Ancillary Lorri Weinberg [facility] 1.2.840 .114 [id number] [facility] 13:03:04 13:48:04 Visit Breanna Means 350.1.13.10 ity of [place] [phone] [facility] nal 179 [facility] Results Test Description Test Time Test Comments Results Result [facility] e Comments ANG, NEPHROSTOMY 2022-05-06 Reason for TUBE CHANGE, LEFT 17:22:00 Exam:->NEOPLAS M [facility]ATED [facility] : 1940 Sex: M FINAL REPORT Ultrasound and fluoroscopically guided left nephrostomy tube placement Clinical History: Collecting system access for chemotherapy administration. Modality: Sonography and fluoroscopy Veneer Glue Jointer Feedback: Mike Fischer MD. Printed Circuit Boards Inspector: Saul Sotelo M.D.. Sedation: Versed 3 mg [...] tract was dilated with 7 and 9 Welsh dilators. A 8.5 Welsh drainage catheter was placed into the left [...] Fischer Verified Date/Time: 05/06/2022 17:22:20 Reading Location: [place] [id number] [facility] Body Reading Room -Glucose meter 2022-05-03 09:58:14 Test Item Value Reference Range Interpretation Comme nts POC-Glucose Meter (test code = 107 mg/dL 70-110 : TESTED AT [facility] [address] [facility] 1538) [facility], 770 30: Bricklayer Helper/Techni raoul ID = [id number] for CAREN BLACKWELL ET Lab Interpretation (test code = Normal 34190-5) [facility] [id number] 09:58:14 Test Item Value Reference Range Interpretation Comments POC-Glucose Meter (test 107 mg/dL 70-110 : TE STED AT [facility] code = 1538) [address] [facility], 770 30: Bricklayer Helper/Techni raoul ID = [id number] for CAREN BLACKWELL ET Lab Interpretation (test Normal code = 44199-7) [facility]-GLUCOSE [id number] 09:58:14 Test Item Value Reference Range Interpretation Comments POC-GLUCOSE METER 107 mg/dL 70-110 : TESTED [facility] T [facility] 67[address] (BEAKER) (test code = BERTNE R [facility], 1538) [address]: Bricklayer Helper/Techni raoul ID = [id number] for KIRIT LUGO CBC W/PLT COUNT & AUTO [id number] 09:44:59 Test Item Value Reference Range Interpretation [...] PERCENT (BEAKER) (test code = 2801) PROTHROMBIN [id number] 09:44:04 Test Item Value Reference Range Interpretation Comments PROTIME (BEAKER) 12.7 seconds 11.9-14.2 (test code = 759) INR (BEAKER) (test 1.01 See_Comment [Automat ed message] code = 370) The system [employer] generated this result transmitted ref erence range: <=5.90. The reference range was not used to int erpret this result as normal/abnormal . RECOMMENDED COUMADIN/WARFARIN INR THERAPY RANGESSTANDARD DOSE: 2.0 - 3.0 Includes: PROPHYLAXIS for venous thrombosis, systemic embolization; TREATMENT for venous thrombosis and/or pulmonary embolus.HIGH RISK: Target INR is 2.5-3.5 for patients with mechanical heart valves.POCT URINALYSIS [id number] 00:00:00 Test Item Value Reference Range Interpretation Comments COLOR UA (test code = 5778-6) Karon YELLOW/STRAW CLARITY UA (test code = 21023-0) Clear CLEAR GLUCOSE UA (test code = 5792-7) Negative NEGATIVE BILIRUBIN UA (test code = 5770-3) Negative NEGATIVE KETONES UA (test code = 11518-7) Negative NEGATIVE SPECIFIC GRAVITY UA (test code [...] NEGATIVE REDUCING SUBSTANCES URINE (test code = 73506-8) [facility], PERC, EXTERNAL [id number] 19:13:00Needs left percutaneous nephrostomy tube placement (NOT PCNU), due to distal obstruction in left ureter. Reason for exam:->Severe left hydronephrosisMEMORIAL MEDICAL CENTERName: HEROELOBENITEZ Berrios KARL : 1940 Sex: MFINAL REPORT History: Left [...] the sheath within the collecting system. A Trunk Clubson wire was then placed and coiled within the left renal pelvis. The tract was dilated and an 8 Welsh pigtail external nephrostomy catheter was placed over [...] is reported as (Ka,r): 63 mGy Signed:Sam Lund Verified Date/Time: 01/07/2022 19:13:35 Reading Location: [place] [address] Angio Body Reading Room Urine [id number] 11:43:21 Test Item Value Reference Range Interpretation Comments Result (test code = 6463-4) No growth [facility] [id number] 11:43:21 Test Item Value Reference Range Interpretation Comments Result (test code = 6463-4) No growth [facility] [id number] 11:43:21 Test Item Value Reference Range Interpretation Comments CULTURE (BEAKER) (test code = 1095) No growth POCT-GLUCOSE [id number] 12:05:17 Test Item Value Reference Range Interpretation Comments POC-GLUCOSE METER 111 mg/dL 70-110 H : TESTED A T [facility] 6720 (BEAKER) (test code = KIZZY CARTAGENA [place], 1538) [address]: Bricklayer Helper/Techni raoul ID = [id number] for ANGELIA BURTON BASIC METABOLIC [id number] 05:57:55 Test Item Value Reference Range Interpretation [...] S NOT APPLICABLE FOR DIALYSIS PATIEN TS. Bricklayer Helper ID - PIAYA LCBC W/PLT COUNT & AUTO [id number] 05:37:43 Test Item Value Reference Range Interpretation [...] PERCENT (BEAKER) (test code = 2801) Gram [id number] 00:56:10 Test Item Value Reference Range Interpretation Comments Gram Stain Result (test No organisms seen code = 1123) [facility] [id number] 00:56:10 Test Item Value Reference Range Interpretation Comments Gram Stain Result (test No organisms seen code = 1123) [facility] CenterGRAM [id number] 00:56:10 Test Item Value Reference Range Interpretation Comments GRAM STAIN RESULT (BEAKER) <1+ WBCs (test code = 1123) GRAM STAIN RESULT (BEAKER) No organisms seen (test code = 74471) BASIC METABOLIC [id number] 05:12:35 Test Item Value Reference Range Interpretation [...] S NOT APPLICABLE FOR DIALYSIS PATIEN TS. Bricklayer Helper ID - PIAYA LCBC W/PLT COUNT & AUTO [id number] 04:30:47 Test Item Value Reference Range Interpretation [...] = 2801) Urinalysis w/Microscopic + Reflex to [id number] 23:36:22 Test Item Value Reference Range Interpretation Comments Color, UA (test code Yellow = 5778-6) Clarity, UA (test Clear code = 5767-9) Specific [place], UA 1.043 1.001-1.035 H (test code = 5811-5) pH, UA (test code = 6.0 5.0-8.0 5803-2) Protein, UA (test 20 mg/dL Negative A code = 67527-7) Glucose, UA (test Negative Negative code = 365) Ketones, UA (test Negative Negative code = 2514-8) Bilirubin, UA (test Negative Negative code = 39528-3) Blood, UA (test code Negative Negative = 35660-3) Nitrite, UA (test Negative Negative code = 5802-4) Leukocytes, UA (test Negative Negative code = 5799-2) Urobilinogen, UA 0.2 mg/dL 0.2-1.0 (test code = 43005-8) RBC, UA (test code = 1 See_Comment [Autom ated 36025-9) message] The system which generated this result [...] Bacteria, UA (test None Seen code = 63523-7) Crystals, Urine (test None Seen code = 83100-8) Specimen Source (test code = 2795) BOB (test code = BOB) Bricklayer Helper ID - [auto]Bricklayer Helper ID - tech Lab Interpretation Abnormal (test code = 64430-8) [facility] CenterUrinalysis w/Microscopic + Reflex to Culture 2022-01-03 23:36:22 Test Item Value Reference Range Interpretation Comments Color, UA (test code Yellow = 5778-6) Clarity, UA (test Clear code = 5767-9) Specific [place], UA 1.043 1.001-1.035 H (test code = 5811-5) pH, UA (test code = 6.0 5.0-8.0 5803-2) Protein, UA (test 20 mg/dL Negative A code = 53977-0) Glucose, UA (test Negative Negative code = 365) Ketones, UA (test Negative Negative code = 2514-8) Bilirubin, UA (test Negative Negative code = 88487-8) Blood, UA (test code Negative Negative = 39711-8) Nitrite, UA (test Negative Negative code = 5802-4) Leukocytes, UA (test Negative Negative code = 5799-2) Urobilinogen, UA 0.2 mg/dL 0.2-1.0 (test code = 24574-2) RBC, UA (test code = 1 See_Comment [Autom ated 99504-4) message] The system which generated this result [...] Bacteria, UA (test None Seen code = 04959-0) Crystals, Urine (test None Seen code = 36777-4) Specimen Source (test code = 2795) BOB (test code = BOB) Bricklayer Helper ID - [auto]Bricklayer Helper ID - tech Lab Interpretation Abnormal (test code = 89549-8) [facility] CenterUR[facility]ALYSIS W/ REFLEX URINE [id number] 23:36:22 Test Item Value Reference Range Interpretation [...] = 1521) SOURCE(BEAKER) (test code = 2795) Bricklayer Helper ID - [auto]Bricklayer Helper ID - techCOMPREHENSIVE METABOLIC [id number] 23:07:39 Test Item Value Reference Range Interpretation [...] S NOT APPLICABLE FOR DIALYSIS PATIEN TS. Bricklayer Helper ID - DBCBC W/PLT COUNT & AUTO [id number] 23:06:50 Test Item Value Reference Range Interpretation [...] 0-1 PERCENT (BEAKER) (test code = 2801) [id number] 23:01:04 Test Item Value Reference Range Interpretation [...] 2.5-3.5 for patients with mechanical heart valves.PROTHROMBIN TIME/[id number] 23:00:22 Test Item Value Reference Range Interpretation Comments PROTIME (BEAKER) 13.0 seconds 11.9-14.2 (test code = 759) INR (BEAKER) (test 1.00 See_Comment [Automat ed message] code = 370) The system [employer] generated this result transmitted ref erence range: <=5.90. The reference range was not used to int erpret this result as normal/abnormal . RECOMMENDED COUMADIN/WARFARIN INR THERAPY RANGESSTANDARD DOSE: 2.0 - 3.0 Includes: PROPHYLAXIS for venous thrombosis, systemic embolization; TREATMENT for venous thrombosis and/or pulmonary embolus.HIGH RISK: Target INR is 2.5-3.5 for patients with mechanical heart valves.URINE AND [id number] 19:16:00 Test Item Value Reference Range Interpretation Comments UA Color (test code = UA Color) YELLOW [facility] AND [id number] 19:16:00 Test Item Value Reference Range Interpretation Comments UA Color (test code = UA Color) YELLOW [facility] AND [id number] 19:16:00 Test Item Value Reference Range Interpretation Comments UA Turbidity (test code = UA CLOUDY Turbidity) [facility] AND [id number] 19:16:00 Test Item Value Reference Range Interpretation Comments UA Spec Grav (test code = UA Spec 1.016 1 1.001-1.035 Grav) [facility] AND [id number] 19:16:00 Test Item Value Reference Range Interpretation Comments UA pH (test code = UA pH) 6.5 1 5.0-8.0 [facility] AND [id number] 19:16:00 Test Item Value Reference Range Interpretation Comments UA Glucose (test code = UA Glucose) [facility]GATIVE [facility] [id number] 19:16:00 Test Item Value Reference Range Interpretation Comments UA Bili (test code = UA Bili) NEGATIVE [facility] [id number] 19:16:00 Test Item Value Reference Range Interpretation Comments UA Ketones (test code = UA Ketones) NEGATIVE [facility] [id number] 19:16:00 Test Item Value Reference Range Interpretation Comments UA Blood (test code = UA Blood) TRACE [facility] [id number] 19:16:00 Test Item Value Reference Range Interpretation Comments UA Protein (test code = UA Protein) TRACE [facility] [id number] 19:16:00 Test Item Value Reference Range Interpretation Comments UA Nitrite (test code = UA Nitrite) NEGATIVE [facility] [id number] 19:16:00 Test Item Value Reference Range Interpretation Comments UA Leuk Est (test code = UA Leuk NEGATIVE Est) [facility] [id number] 19:16:00 Test Item Value Reference Range Interpretation Comments UA WBC (test code = UA WBC) 6-10 [facility] [id number] 19:16:00 Test Item Value Reference Range Interpretation Comments UA RBC (test code = UA RBC) 3-10 [facility] [id number] 19:16:00 Test Item Value Reference Range Interpretation Comments UA Sq Epi (test code = UA Sq Epi) 0-5 [facility] [id number] 19:16:00 Test Item Value Reference Range Interpretation Comments UA Bacteria (test code = UA Bacteria) MANY [facility] [id number] 19:16:00 Test Item Value Reference Range Interpretation Comments UA Hyal Cast (test code = UA Hyal Cast) 0-5 [facility] [id number] 19:16:00 Test Item Value Reference Range Interpretation Comments UA Reflex (test code = UA Reflex) SEE COMMENT [facility] [id number] 19:16:00 Test Item Value Reference Range Interpretation Comments UA Turbidity (test code = UA CLOUDY Turbidity) [facility] [id number] 19:16:00 Test Item Value Reference Range Interpretation Comments UA Spec Grav (test code = UA Spec 1.016 1 1.001-1.035 Grav) [facility] [id number] 19:16:00 Test Item Value Reference Range Interpretation Comments UA pH (test code = UA pH) 6.5 1 5.0-8.0 [facility] [id number] 19:16:00 Test Item Value Reference Range Interpretation Comments UA Glucose (test code = UA Glucose) NEGATIVE [facility] [id number] 19:16:00 Test Item Value Reference Range Interpretation Comments UA Bili (test code = UA Bili) [facility]IVE [facility] [id number] 19:16:00 Test Item Value Reference Range Interpretation Comments UA Ketones (test code = UA Ketones) NEGATIVE [facility] [id number] 19:16:00 Test Item Value Reference Range Interpretation Comments UA Blood (test code = UA Blood) TRACE [facility] [id number] 19:16:00 Test Item Value Reference Range Interpretation Comments UA Protein (test code = UA Protein) TRACE [facility] [id number] 19:16:00 Test Item Value Reference Range Interpretation Comments UA Nitrite (test code = UA Nitrite) NEGATIVE [facility] [id number] 19:16:00 Test Item Value Reference Range Interpretation Comments UA Leuk Est (test code = UA Leuk NEGATIVE Est) [facility] [id number] 19:16:00 Test Item Value Reference Range Interpretation Comments UA WBC (test code = UA WBC) 6-10 [facility] [id number] 19:16:00 Test Item Value Reference Range Interpretation Comments UA RBC (test code = UA RBC) 3-10 [facility] [id number] 19:16:00 Test Item Value Reference Range Interpretation Comments UA Sq Epi (test code = UA Sq Epi) 0-5 [facility] [id number] 19:16:00 Test Item Value Reference Range Interpretation Comments UA Bacteria (test code = UA Bacteria) MANY [facility] [id number] 19:16:00 Test Item Value Reference Range Interpretation Comments UA Hyal Cast (test code = UA Hyal Cast) 0-5 [facility] [id number] 19:16:00 Test Item Value Reference Range Interpretation Comments UA Reflex (test code = UA Reflex) [facility] COMMENT [id number] 10:40:00 Test Item Value Reference Range Interpretation Comments POC-CREATININE 0.9 mg/dL 0.6-1.3 TESTED AT [facility] (BEAKER) (test 2457 [facility] code = 1859) [place] [address] POC-EGFR 82 mL/min/1.73M2 (BEAKER) (test code = 1860) BASIC METABOLIC [id number] 09:21:00 Test Item Value Reference Range Interpretation [...] ESTIMATED GFR. CREATINE KINASE (CK), TOTAL AND [id number] 08:57:00 Test Item Value Reference Range Interpretation Comments CREATINE KINASE TOTAL (BEAKER) 128 U/L 29-200 (test code = 380) CREATINE KINASE-MB (BEAKER) (test 3.6 ng/mL 0.0-6.6 code = 750) CREATINE KINASE-MB INDEX (BEAKER) 2.8 % (test code = 395) Effective 07/30/2014: CK-MB Reference Range ChangeNew: 0.0-6.6 Previous: 0.0-4.9CK-MB Reference Range:<6.7 Normal6.7-10.0 Borderline>10.0 Abnormal TROPONIN [id number] 08:57:00 Test Item Value Reference Range Interpretation [...] 29 pg/mL 0-100 (test code = 700) [id number] 08:50:00 Test Item Value Reference Range Interpretation Comments MAGNESIUM (BEAKER) (test code = 2.1 mg/dL 1.6-2.6 627) [id number] 08:47:00 Test Item Value Reference Range Interpretation [...] mechanical heart valves.CBC W/PLT COUNT & AUTO [id number] 08:36:00 Test Item Value Reference Range Interpretation [...]
[2022-08-15] MEDS ORDERED: KETOROLAC 30 MG/ML INJ ONE (01:14)
[2022-08-15 01:41] LABS: Absolute Lymphocytes (CBC) 1.5 K/uL (0.7-4.9); Hematocrit 37.2 % (39.6-49.0); Lymphocytes % 17.1 % (15.3-44.8); MPV 8.5 fL (7.6-11.3); RBC Red Blood Cell Count 3.69 M/uL (4.33-5.43)
[2022-08-15 01:52] LABS: Potassium 3.1 mmol/L (3.5-5.1)
[2022-08-15] MEDS ORDERED: DIAZEPAM 5 MG TABLET ONE (02:00)
[2022-08-15] MEDS ORDERED: HYDROCODONE/APAP 5/325 MG TAB ONE (02:01)
[2022-08-15 03:23] LABS: Urine Blood 3+ (Negative); Urine Glucose Negative (Negative); Urine Protein 1+ (Negative); Urine Specific Gravity 1.025 (1.005-1.030); Urine pH 5.5 (5.0-7.0)
[2022-08-15 03:48] LABS: Specific Gravity 1.023 (1.005-1.030); Urine Bacteria <20 /HPF (<20); Urine Bilirubin NEGATIVE (Negative); Urine Blood 3+ (OVER) (Negative); Urine Clarity Clear (Clear); Urine Color Yellow (Yellow); Urine Glucose NEGATIVE (Negative); Urine Mucus 1+ /HPF (None Seen); Urine Protein 1+ (Negative); Urine RBC >50 /HPF (None Seen); Urine Urobilinogen Normal (Normal); Urine pH 5.5 (5.0-7.0)
--- NOTE | 2022-08-15 04:02 | EDPHYS ---
Physician Documentation [facility] Name: Carlitos Peralta Age: 81 yrs Sex: Male : 1940 Arrival Date: 08/15/2022 Time: 00:57 Bed 4 Private MD: ED Physician Liu Fagan HPI: 08/15 01:48 This 81 yrs old Male presents to ER via EMS with complaints of left groin pain. ms3 01:48 The patient or guardian reports pain. sustained from arthritis There is no obvious ms3 deformity, The patient is not able to ambulate. The complaints affect the groin. Onset: The symptoms/episode began/occurred acutely, ongoing for months. Modifying factors: The symptoms are alleviated by nothing, the symptoms are aggravated by nothing. Associated signs and symptoms: Pertinent negatives: dysuria, fever, incontinence, vomiting. Severity of symptoms: At their worst the symptoms were severe, in the emergency department the symptoms are unchanged. Historical: - Allergies: 01:04 No Known Allergies; ll3 - PMHx: 01:04 a fib; Arthritis; CA; Hypertensive disorder; ll3 - PSHx: 01:04 colon cancer sx; hernia repair; mult eye sx; ll3 - Immunization history:: Client reports receiving the 2nd dose of the Covid vaccine. - Social history:: Smoking status: Patient/guardian denies using tobacco, Stopped _ months ago 3. ROS: 01:48 Constitutional: Negative for fever, and chills. Neck: Negative for injury, pain, and ms3 swelling, Cardiovascular: Negative for chest pain, and palpitations. Respiratory: Negative for shortness of breath, cough, wheezing, and pleuritic chest pain, Abdomen/GI: Negative for abdominal pain, nausea, vomiting, diarrhea, and constipation. 01:48 MS/extremity: Positive for left groin pain. 01:48 All other systems are negative. Exam: 01:48 Constitutional: This is a well developed, well nourished patient who is awake, alert, ms3 and in no acute distress. Head/Face: Normocephalic, atraumatic. Neck: Trachea midline, no cervical lymphadenopathy. Supple, full range of motion without nuchal rigidity, or vertebral point tenderness. No Meningismus. Chest/axilla: Normal chest wall appearance and motion. Nontender with no deformity. Cardiovascular: Regular rate and rhythm with a normal S1 and S2. No gallops, murmurs, or rubs. Normal PMI, no JVD. No pulse deficits. Respiratory: Lungs have equal breath sounds bilaterally, clear to auscultation and percussion. No rales, rhonchi or wheezes noted. No increased work of breathing, no retractions or nasal flaring. Abdomen/GI: Soft, non-tender, with normal bowel sounds. No distension or tympany. No guarding or rebound. No evidence of tenderness throughout. Skin: Warm, dry with normal turgor. Normal color with no rashes, no lesions, and no evidence of cellulitis. 01:48 Musculoskeletal/extremity: Extremities: noted in the left groin: pain, tenderness. Vital Signs: 01:00 BP 125 / 68; Pulse 93; Resp 17; Temp 97.9(O); Pulse Ox 100% on R/A; Weight 99.79 kg ll3 (R); Height 5 ft. 11 in. (180.34 cm); Pain 10/10; 02:21 BP 130 / 81; Pulse 88; Resp 18 S; Pulse Ox 100% on R/A; as6 03:38 BP 127 / 62; Pulse 96; Resp 16 S; Pulse Ox 99% on R/A; as6 04:27 BP 131 / 75; Pulse 93; Resp 16; Pulse Ox 96% on R/A; ll3 01:00 Body Mass Index 30.68 (99.79 kg, 180.34 cm) ll3 MDM: 01:08 Patient medically screened. ms3 01:48 Differential diagnosis: hip fracture, intertrochanteric fracture, femoral neck ms3 fracture, femoral shaft fracture, bursitis, arthritis, strain. 04:03 Data reviewed: vital signs, nurses notes, lab test result(s), radiologic studies, and ms3 as a result, I will discharge patient. Counseling: I had a detailed discussion with the patient and/or guardian regarding: the historical points, exam findings, and any diagnostic results supporting the discharge/admit diagnosis, lab results, radiology results, the need for outpatient follow up, to return to the emergency department if symptoms worsen or persist or if there are any questions or concerns that arise at home. ED course: Discussed labs and CT findings with patient. Patient to follow-up with Dr. Gomez in 1 to 2 days. Patient understands and agrees with plan. All questions were answered. Return precautions discussed include worsening symptoms, or any other concerns. Patient given prescription for tramadol.. 08/15 01:08 Order name: CBC with Diff; Complete Time: 02:45 ms3 08/15 01:08 Order name: BMP; Complete Time: 02:45 ms3 08/15 01:08 Order name: Urinalysis; Complete Time: 03:58 ms3 08/15 01:10 Order name: CT Abd/Pelvis - Without Contrast ms3 08/15 03:23 Order name: Urine Dipstick-Ancillary; Complete Time: 03:58 EDMS 08/15 03:52 Order name: Urine Culture EDMS Administered Medications: 01:29 Drug: Ketorolac 10 mg Route: IVP; Site: left antecubital; ll3 02:05 Drug: HYDROcodone-acetaminophen 5 mg-325 mg 1 tabs Route: PO; ll3 02:05 Drug: Valium (diazepam) 5 mg Route: PO; ll3 Disposition Summary: 08/15/22 04:01 Discharge Ordered Location: Home ms3 Condition: Stable ms3 Diagnosis - Pain in left hip ms3 - Hydronephrosis ms3 - Hypokalemia ms3 - Anemia, unspecified ms3 Followup: ms3 - With: Robin Gomez MD - When: 1 - 2 days - Reason: Recheck today's complaints Discharge Instructions: - Discharge Summary Sheet ms3 - Anemia ms3 - Joint Pain ms3 - Arthritis ms3 - Musculoskeletal Pain ms3 - Hip Pain ms3 Forms: - Medication Reconciliation Form ms3 - Thank You Letter ms3 - Antibiotic Education ms3 - Prescription Opioid Use ms3 Prescriptions: - Tramadol 50 mg Oral Tablet - take 1 tablet by ORAL route every 8 hours as needed; 12 tablet; Refills: 0, ms3 Product Selection Permitted Signatures: Dispatcher [employer] EDLiu Reardon DO DO ms3 Lina Izquierdo, RN RN ll3
--- NOTE | 2022-08-15 04:02 | ER ---
Nurse's Notes [facility] Name: Carlitos Peralta Age: 81 yrs Sex: Male : 1940 Arrival Date: 08/15/2022 Time: 00:57 Bed 4 Private MD: Diagnosis: Pain in left hip;Hydronephrosis;Hypokalemia;Anemia, unspecified Presentation: 08/15 01:00 Chief complaint: EMS states: Toned out for groin pain 10/, pt states pain started out ll3 of no where about 2 hours [employer]. Coronavirus screen: Vaccine status: Patient reports receiving the 2nd dose of the covid vaccine. At this time, the client does not indicate any symptoms associated with coronavirus-19. Ebola Screen: No symptoms or risks identified at this time. Initial Sepsis Screen: Does the patient meet any 2 criteria? No. Patient's initial sepsis screen is negative. Does the patient have a suspected source of infection? No. Patient's initial sepsis screen is negative. Risk Assessment: Do you want to hurt yourself or someone else? Patient reports no desire to harm self or others. Onset of symptoms was August 15, 2022. Care prior to arrival: IV initiated. 20 GA, in the left antecubital area. 01:00 Method Of Arrival: EMS: [facility] ll3 01:00 Acuity: LUISITO 3 ll3 Triage Assessment: 01:04 General: Appears in no apparent distress. uncomfortable, Behavior is cooperative. Pain: ll3 Complains of pain in groin Pain does not radiate. Pain currently is 10 out of 10 on a pain scale. Pain began 2 hours ago. Is continuous. Neuro: Level of Consciousness is awake, alert, obeys commands, Oriented to person, place, time, situation. Derm: Skin is pink, warm \T\ dry. Musculoskeletal: Reports pain in groin. Historical: - Allergies: 01:04 No Known Allergies; ll3 - PMHx: 01:04 a fib; Arthritis; CA; Hypertensive disorder; ll3 - PSHx: 01:04 colon cancer sx; hernia repair; mult eye sx; ll3 - Immunization history:: Client reports receiving the 2nd dose of the Covid vaccine. - Social history:: Smoking status: Patient/guardian denies using tobacco, Stopped _ months ago 3. Screenin:38 Abuse screen: Denies threats or abuse. Denies injuries from another. Nutritional as6 screening: No deficits noted. Tuberculosis screening: No symptoms or risk factors identified. Fall Risk None identified. Assessment: 01:06 General: See triage assessment. ll3 Vital Signs: 01:00 BP 125 / 68; Pulse 93; Resp 17; Temp 97.9(O); Pulse Ox 100% on R/A; Weight 99.79 kg ll3 (R); Height 5 ft. 11 in. (180.34 cm); Pain 10/10; 02:21 BP 130 / 81; Pulse 88; Resp 18 S; Pulse Ox 100% on R/A; as6 03:38 BP 127 / 62; Pulse 96; Resp 16 S; Pulse Ox 99% on R/A; as6 04:27 BP 131 / 75; Pulse 93; Resp 16; Pulse Ox 96% on R/A; ll3 01:00 Body Mass Index 30.68 (99.79 kg, 180.34 cm) ll3 ED Course: 00:57 Patient arrived in ED. mw2 01:00 Liu Fagna DO is Attending Physician. ms3 01:04 Triage completed. ll3 01:04 Arm band placed on Patient placed in an exam room, on a stretcher, on pulse oximetry. ll3 01:52 CT Abd/Pelvis - Without Contrast In Process Unspecified. EDMS 02:21 Cole Norton, GIANNA is Primary Nurse. as6 03:38 Bed in low position. Call light in reach. as6 04:00 Robin Gomez MD is Referral Physician. ms3 04:27 No provider procedures requiring assistance completed. IV discontinued, intact, ll3 bleeding controlled, No redness/swelling at site. Pressure dressing applied. Administered Medications: 01:29 Drug: Ketorolac 10 mg Route: IVP; Site: left antecubital; ll3 02:05 Drug: HYDROcodone-acetaminophen 5 mg-325 mg 1 tabs Route: PO; ll3 02:05 Drug: Valium (diazepam) 5 mg Route: PO; ll3 Medication: 03:38 VIS not applicable for this client. as6 Outcome: 04:01 Discharge ordered by . ms3 04:27 Discharged to home via wheelchair, with significant other. ll3 04:27 Condition: stable 04:27 Discharge instructions given to patient, significant other, Instructed on discharge instructions, follow up and referral plans. medication usage, Demonstrated understanding of instructions, follow-up care, medications, Prescriptions given X 1. 04:28 Patient left the ED. ll3 Signatures: Dispatcher [employer] EDMS Priti Anderson mw2 Liu Fagan DO DO ms3 Cole Norton RN RN as6 Lina Izquierdo RN RN ll3
[2022-08-15 04:33] VITALS: TEMP 97.9
[2022-08-15 04:37] VITALS: BP 131/75; O2SAT 96
--- NOTE | 2022-08-16 13:57 | RAD REPORT ---
EXAM DESCRIPTION: CT - Abdomen Pelvis Wo Contrast - 08/15/2022 6:55 am CLINICAL HISTORY: The patient is 81 years old and is Male; Left groin pain TECHNIQUE: Axial computed tomography images of the abdomen and pelvis without intravenous contrast. Sagittal and coronal reformatted images were created and reviewed. This CT exam was performed usi ng one or more of the following dose reduction techniques: automated exposure control, adjustment o f the mA and/or kV according to patient size, and/or use of iterative reconstruction technique. COMPARISON: CT the abdomen and pelvis March 24, 2022 FINDINGS: LUNG BASES: Unremarkable. No mass. No consolidation. ABDOMEN: LIVER: Several cysts are present within the liver, similar prior exam. GALLBLADDER AND BILE DUCTS: The gallbladder is physiologically distended. No calcified gallstones are seen. PANCREAS: Mild atrophy of the pancreas is present. No ductal dilation. SPLEEN: Unremarkable. ADRENALS: Unremarkable. No mass. KIDNEYS AND URETERS: The left kidney is atrophic. Mild left hydroureteronephrosis with associated left double-J ureteral stent is present. The left ureter is surgically moved to the superior aspect of the bladder. The right kidney is without hydronephrosis or hydroureter. The right kidney is normal in appearance. STOMACH AND BOWEL: The stomach is minimally distended with fluid and air. The small bowel is norm al in caliber. Stool is present throughout colon. There is no mucosal thickening or evidence of bowel obstruction. PELVIS: APPENDIX: The appendix is surgically absent. BLADDER: Unremarkable. No stones. REPRODUCTIVE: Unremarkable as visualized. ABDOMEN and PELVIS: INTRAPERITONEAL SPACE: Unremarkable. No free air. No significant fluid collection. BONES/JOINTS: Multilevel degenerative change of the spine is present. There is no acute fractur e. SOFT TISSUES: The soft tissues are normal. VASCULATURE: Atherosclerosis of the vasculature is present. The vessels are normal in caliber. No abdominal aortic aneurysm. LYMPH NODES: Unremarkable. No enlarged lymph nodes. IMPRESSION: Mild left hydroureteronephrosis with double-J ureteral stent in place. Minimal stranding is noted. The degree of dilatation has increased since prior exam. Electronically signed by: Yoko Beaver MD 08/15/2022 2:21 AM MANUFACTURING SUPPORT ENGINEER Due to temporary technical issues with the PACS/Fluency reporting system, reports are being signed by the in house radiologists without review as a courtesy to insure prompt reporting. The interpreting radiologist is fully responsible for the content of the report.
== END 2022-08-15 04:28 | disposition home or self-care (01) ==
LOC: ER 00:56
DX: M25.552 Pain in left hip (principal); N13.30 Unspecified hydronephrosis; E87.6 Hypokalemia; D64.9 Anemia, unspecified; I10 Essential (primary) hypertension; Z85.038 Personal history of other malignant neoplasm of large intestine
CPT/HCPCS: 36415; 74176; 80048; 81001; 81003; 85025; 87086; 87088; 96374; 99284

== ENCOUNTER 2022-11-01 06:45 | Day surgery (SDC) | payer OTHER ==
[2022-10-27 14:29] LABS: Absolute Lymphocytes (CBC) 1.5 K/uL (0.7-4.9); Hematocrit 41.9 % (39.6-49.0); MCV 98.6 fL (80-100); MPV 7.4 fL (7.6-11.3); RBC Red Blood Cell Count 4.25 M/uL (4.33-5.43)
[2022-10-27 14:42] LABS: Potassium 4.1 mmol/L (3.5-5.1)
[2022-11-01] MEDS ORDERED: Ringers Lactate 1,000 ML IV ONE (07:15)
[2022-11-01] MEDS ORDERED: propofoL 200 MG/20 ML VIAL IV ONE (07:28)
[2022-11-01] MEDS ORDERED: LIDOCAINE 1% MPF 5 ML VIAL ONE (07:29)
[2022-11-01] MEDS ORDERED: FENTANYL CITR 100 MCG/2 ML ONE (07:29)
[2022-11-01] MEDS ORDERED: ONDANSETRON 4 MG/2 ML VIAL ONE (07:30)
[2022-11-01] MEDS ORDERED: ROCURONIUM 50 MG/5 ML VIAL IV ONE (07:30)
[2022-11-01] MEDS ORDERED: GENTAMICIN 80 MG/100 ML BAG 0 MG/0 ML BAG IV ONE (07:33)
[2022-11-01] MEDS ORDERED: GENTAMICIN 100 MG/100 ML BAG 200 ML IV ONE (07:33)
[2022-11-01] MEDS: AMPICILLIN SODIUM 2 GM/VIAL VIAL ONE ×2 (07:40→07:58)
[2022-11-01] MEDS ORDERED: HYDROCORTISONE SUC 250 MG INJ ONE (08:00)
[2022-11-01] MEDS ORDERED: METHYLPREDNISOLONE 125 MG INJ ONE (08:00)
--- NOTE | 2022-11-01 09:07 | RAD REPORT ---
EXAM DESCRIPTION: RAD - Urethrocystogrphy Retrograde - 11/01/2022 9:02 am CLINICAL HISTORY: ICD N 20.0 FINDINGS: Fifteen fluoroscopic spot images obtained. Fluoroscopy time 2.5 minutes Left ureter was cannulated and contrast administered. Subsequently an ureteral stent was placed. Exam ination was performed by Dr Gomez
[2022-11-01] MEDS ORDERED: HYDROCODONE/APAP 5/325 MG TAB PO PRN (09:19)
[2022-11-01 13:26] VITALS: BP 115/56; TEMP 97.4; O2SAT 100
[2022-11-02] MEDS ORDERED: Gentamicin Inj 160 MG in NA CHLORIDE 0.9% 100 ML IV SCH (07:00)
--- NOTE | 2022-11-02 11:29 | OP ---
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 2.Left distal ureteral filling defect. 3.Status post intravesical and intrarenal gemcitabine chemotherapy. 4.Status post induction BCG. 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 2.Left distal ureteral filling defect. 3.Status post intravesical and intrarenal gemcitabine chemotherapy. 4.Status post induction BCG. 5.Recurrent bladder tumors. 6.Left ureteral orifice stenosis. 7.Left ureteral filling defect. Principal Procedures: 1.Cystoscopy. 2.Left retrograde pyelography. 3.Complex left ureteral stent exchange into reimplanted left ureter. 4.Transurethral resection of bladder tumour/cysto with multiple biopsies. 5.Fulguration of base of the resected tumor. Specimens: Bladder biopsies of the right posterior dome, anterior bladder neck, and trigone posterio r. Indication For Procedure: Mr. Peralta is an 82-year-old gentleman who presented to the [facility] with issues of left-sided hydronephrosis and found to have ureteral orifice stenosis as well as th e presence of some bladder tumors. He underwent multiple rounds of evaluation and management of what was suspected to be a left distal ureteral carcinoma and treatment with intravesical gemcitabine. S ubsequently with the identification of CIS of the bladder, he underwent an induction course of BCG. He presents today for restaging. Procedure In Detail: The patient was consented in the preoperative holding area before being transfe rred to the operative suite where general anesthesia was induced. He was given ampicillin 2 g and ge ntamicin 200 mg IV antimicrobial prophylaxis and pneumo boots were provided for DVT prophylaxis. He was placed in the lithotomy position, padded and secured to the table appropriately, and his genitali a was prepped with Hibiclens before being draped in standard fashion. The case was begun using a 22- Welsh rigid cystoscope to traverse the urethra and into the bladder with ease. The bladder was deco mpressed of fluid and some mild debris containing urine and refilled and washed with saline before be ing surveyed in its entirety. Within the posterior wall of the bladder to the right, near the dome w ere 2 sessile nodular tumors, approximately 1 cm in diameter. Additionally, in the bladder neck ante riorly, there was a papillary urothelial neoplasm also seen approximately 3 to 4 cm in diameter. The remainder of the bladder was free of mucosal lesion. The left ureteral stent was noted to emanate f rom the ureteral orifice. As a result, I started by grasping the stent and delivering the tip to the meatus, leaving the proximal coil within the mid proximal ureter. This was observed fluoroscopicall y. I then passed a Sensor wire up the stent and coiled it within the upper pole putatively of the ki dney. Over the Sensor wire, I removed the stent and placed a 5-Welsh ureteral access catheter to pe rform a retrograde pyelogram. Contrast was injected via the 5-Welsh ureteral access catheter and di d fill the upper pole and then I backed the catheter down into the pelvis so that it would fill the m id and lower pole calices. Within the infundibulum of the lower pole calyx, there did appear to be d ecreased filling, and eventually, I backed the 5-Welsh ureteral access catheter into the proximal ur eter and performed a retrograde pyelogram there to delineate the ureter and assess for any signs of f illing defect. At the level of the UPJ, there was still some stenosis as admin observed previously, but the contrast did pass. The catheter was further retracted into the distal ureter where contrast was again injected, and there was a filling defect across a large space of the ureteral lumen within the pelvic bone structure. As a result, I then attempted to pass a Sensor wire back via the 5-Welsh ureteral access catheter and into the kidney, but given the reimplanted ureter, this would not succe ssfully pass. Eventually, I did lose access and so I turned my attention to the bladder. I then utilized cold cup biopsy forceps to biopsy and remove the tumors from the right posterolateral wall and the anterior bladder neck region. These were sent for pathologic analysis. I then biopsie d areas of slightly erythematous mucosa in the posterior and trigone region of the bladder. These we re also sent for pathologic analysis. I carefully fulgurated each of the base of these biopsy sites to ensure absence of any residual tumor, but also to ensure complete hemostasis. Then using the cyst oscope and an angled Glidewire, now spent significant time gaining access back into the reimplanted l eft ureteral orifice and once I was able to regain access, I advanced a 5-Welsh ureteral access cath eter into the proximal ureter. I then passed this superstiff wire via the 5-Welsh ureteral access c atheter and coiled in the upper pole before removing the 5-Welsh ureteral access catheter and exchan ging it for a new 6-Welsh by 28 cm double-J ureteral stent. A coil was observed fluoroscopically in the upper pole and one cystoscopically was formed at the level of the ureteral orifice in the bladde r. I then decompressed the bladder of fluid urine and any debris, irrigating it to remove any and al l tumor cells, and then removed the cystoscope. The patient was taken out of the lithotomy position, awakened from general anesthesia, transferred to a stretcher, and then transferred to the recovery r o in good condition. Complications: None. Discharge Disposition: Given the recurrence of his bladder cancer despite attempts at intravesical c hemotherapy as well as intravesical immunotherapy, he may have no other option other than to consider proceeding with a cystectomy. A repeat induction course of BCG could certainly be attempted, but th is is unlikely to be successful given the rapid recurrence of his tumors. Given his need for hip rep lacement and significant pain associated with that, that may take precedence and this will all be dis cussed subsequently. JULIANNA/MODL Voice ID: [id number] Report ID: [id number]
== END 2022-11-01 11:30 | disposition home or self-care (01) ==
LOC: OR 06:45
PROVIDERS: ATTEND Urology
PROC: 0TBB8ZX Excision of Bladder, Via Natural or Artificial Opening Endoscopic, Diagnostic (ICD-10-PCS; 2022-11-01)
PROC: 0T778DZ Dilation of Left Ureter with Intraluminal Device, Via Natural or Artificial Opening Endoscopic (ICD-10-PCS; principal; 2022-11-01 07:30)
DX: C67.5 Malignant neoplasm of bladder neck (principal); C67.1 Malignant neoplasm of dome of bladder; N32.81 Overactive bladder; N39.0 Urinary tract infection, site not specified; Q62.10 Congenital occlusion of ureter, unspecified; R93.41 Abnormal radiologic findings on diagnostic imaging of renal pelvis, ureter, or bladder; I10 Essential (primary) hypertension; I48.91 Unspecified atrial fibrillation; Z85.038 Personal history of other malignant neoplasm of large intestine; Z85.51 Personal history of malignant neoplasm of bladder
CPT/HCPCS: 52332; 52235; 52204; 87088; 85025; 87086; 80048; 36415; 88305; 74450; 51610; J2704; J2001; J3010; J1580; J7120; J2930; J2405; J0290; J1720

== ENCOUNTER 2022-11-15 07:12 | Inpatient (IN) | payer OTHER ==
[2022-11-11 10:52] LABS: Absolute Lymphocytes (CBC) 1.5 K/uL (0.7-4.9); Hematocrit 41.6 % (39.6-49.0); Lymphocytes % 23.3 % (15.3-44.8); MCV 99.5 fL (80-100); MPV 8.3 fL (7.6-11.3); RBC Red Blood Cell Count 4.19 M/uL (4.33-5.43)
[2022-11-11 10:54] LABS: Protime INR 0.89
[2022-11-11 10:59] LABS: Specific Gravity 1.014 (1.005-1.030); Urine Bacteria <20 /HPF (<20); Urine Bilirubin NEGATIVE (Negative); Urine Blood 3+ (Negative); Urine Clarity Turbid (Clear); Urine Color Light-Yellow (Yellow); Urine Glucose NEGATIVE (Negative); Urine Mucus Slight /HPF (None Seen); Urine Protein 2+ (Negative); Urine RBC >50 /HPF (None Seen); Urine Urobilinogen Normal (Normal); Urine pH 5.5 (5.0-7.0)
[2022-11-11 11:08] LABS: Albumin 3.2 g/dL (3.4-5.0); Bilirubin Total 0.6 mg/dL (0.2-1.0); Potassium 4.3 mmol/L (3.5-5.1); Protein, Total 6.2 g/dL (6.4-8.2)
[2022-11-11 11:10] LABS: SARS-CoV-2 Antigen Rapid Res Negative (Negative)
--- NOTE | 2022-11-11 11:24 | RAD REPORT ---
EXAM DESCRIPTION: RAD - Chest Pa And Lat (2 Views) - 11/11/2022 10:41 am CLINICAL HISTORY: pre op pending hip replacement COMPARISON: Abdomen 1 View (KUB) dated 03/18/2022; Abdomen 1 View (KUB) dated 01/27/2022; Chest Single View dated 12/10/2021 FINDINGS: Lines: None. Lungs: No evidence of edema or pneumonia. Pleural: No significant pleural effusions or pneumothorax. Cardiac: Mild cardiomegaly. Mediastinum: Within normal limits. Bones: No acute fractures. Bridging osteophytes in the spine. Other: None IMPRESSION: No acute cardiopulmonary disease.
[2022-11-15] MEDS ORDERED: CELECOXIB 100 MG CAPSULE ONE (07:53)
[2022-11-15] MEDS ORDERED: CEFAZOLIN SODIUM 2 GM/VIAL ONE (07:53)
[2022-11-15] MEDS ORDERED: GABAPENTIN 100 MG CAP ONE (07:53)
[2022-11-15] MEDS ORDERED: NA CHLORIDE 0.9% 1,000 ML ONE ×2 (07:54→10:43)
[2022-11-15] MEDS ORDERED: Oxycodone HCl/Acetaminophen 1 TAB TAB ONE (07:54)
[2022-11-15] MEDS ORDERED: ACETAMINOPHEN 500 MG TAB ONE (07:54)
[2022-11-15] MEDS ORDERED: TRANEXAMIC ACID 1,000 MG/10 ML VIAL IV ONE (08:14)
[2022-11-15] MEDS ORDERED: LIDOCAINE 2% MPF 5 ML VIAL ONE (08:20)
[2022-11-15] MEDS ORDERED: propofoL 200 MG/20 ML VIAL IV ONE (08:20)
[2022-11-15] MEDS ORDERED: MIDAZOLAM HCL 2 MG/2 ML INJ ONE (08:20)
[2022-11-15] MEDS ORDERED: FENTANYL CITR 100 MCG/2 ML ONE (08:20)
[2022-11-15] MEDS ORDERED: ROCURONIUM 50 MG/5 ML VIAL IV ONE (08:20)
[2022-11-15] MEDS ORDERED: ONDANSETRON 4 MG/2 ML VIAL ONE (08:21)
[2022-11-15] MEDS ORDERED: Phenylephrine HCl 10 MG/ML 1 ML VIAL ONE (08:30)
[2022-11-15] MEDS ORDERED: NS 0.9% VIAL 10 ML ONE (08:30)
[2022-11-15] MEDS ORDERED: EPHEDRINE SULF 50 MG/ML VIAL ONE (10:03)
[2022-11-15] MEDS ORDERED: dexAMETHasone 10 MG/ML VIAL ONE (10:18)
[2022-11-15] MEDS ORDERED: DOCUSATE NA 100 MG CAP PO PRN (10:26)
[2022-11-15] MEDS ORDERED: ONDANSETRON 4 MG/2 ML VIAL IV PRN (10:26)
--- NOTE | 2022-11-15 10:26 | P.BOP ---
Preoperative diagnosis: Left hip arthritis Postoperative diagnosis: same Primary procedure: left total hip arthoplasty Estimated blood loss: 150 Anesthesia: General Transferred to: Recovery Room Condition: Good
[2022-11-15] MEDS ORDERED: KETOROLAC 30 MG/ML INJ ONE (10:31)
[2022-11-15] MEDS ORDERED: GLYCOPYRROLATE 0.2 MG/ML SYR ONE ×2 (10:33)
[2022-11-15] MEDS ORDERED: NEOSTIGMINE 1 MG/ML -10 ML VIAL ONE (10:34)
[2022-11-15] MEDS ORDERED: FENTANYL CITR 100 MCG/2 ML IV PRN (11:05)
--- NOTE | 2022-11-15 11:05 | RAD REPORT ---
EXAM DESCRIPTION: RAD - Hip Left 1 View - 11/15/2022 10:02 am CLINICAL HISTORY: Total hip replacement COMPARISON: None. FINDINGS: Single view of the left hip. A left hip prothesis has been placed. Hardware is in expected location. Adjacent soft tissue gas. Janes gical metallic instruments project over the mid femoral shaft. Surgical clips are noted in the left a spect of the pelvis. . IMPRESSION: Postoperative left hip with no unexpected finding.
[2022-11-15 11:17] LABS: Hematocrit 38.3 % (39.6-49.0)
--- OUTSIDE RECORDS SUMMARY | 2022-11-15 12:21 | XMS REPORT | Continuity of Care Document ---
:1940 Author Organization [facility] t Address [address] [facility] [address] [place] [address] Care Team Providers Name Role Phone SHARPLESS Primary Care Physician Unavailable Danny Schultz Attending Clinician Unavailable CHRIS LAZARO Attending Clinician Unavailable Dewayne Britton MD Attending Clinician SANA GUSMAN Attending Clinician Unavailable Fuad Blackburn Attending Clinician Sana Gusman MD Attending Clinician MILAD MENDEZ Attending Clinician Unavailable Milad Mendez MD Attending Clinician Virtual, Surgeon Attending Clinician Unavailable Diana Lake Attending Clinician Unavailable CHRIS LAZARO Attending Clinician Unavailable Jazzy Anderson Attending Clinician Geni Herrera MD Attending Clinician Fidel Gonzlaez MD Attending Clinician [phone] Andrew Neil MD Attending Clinician ANDREW NEIL Attending Clinician Unavailable Jason Staley MD Attending Clinician Zach Gould Attending Clinician BREANNA MEANS Attending Clinician Unavailable Lenard TOVAR, Saul Nguyen Attending Clinician Unavailable Breanna Means MD Attending Clinician Lenard TOVAR, Lorri Daley Attending Clinician Unavailable Alannah PT, Elena Stringer Attending Clinician Unavailable Doctor Unassigned, [place] Attending Clinician Unavailable Nurse, Adc Pob Immunization Attending Clinician Unavailable Anuel Galarza DO Attending Clinician ANUEL GALARZA Attending Clinician Unavailable Maida PT, Varsha Dunbar Attending Clinician Unavailable Samantha Brantley PT Attending Clinician Unavailable Ricco Rodriguez MD Attending Clinician Jagdeep Elizabeth PT, Shirley Attending Clinician Unavailable Brendan Hall MD Attending Clinician JASON STALEY Attending Clinician Unavailable JASON STALEY Attending Clinician Unavailable ASTRID JENKINS Attending Clinician Unavailable 2, [facility] Attending Clinician Unavailable BRENDAN HALL Attending Clinician Unavailable Bea KATZ, Amie Stringer Attending Clinician Unavailable Aubrey WHEELER, Chris Attending Clinician CHRIS BURGOS Attending Clinician Unavailable Julisa WHEELER, Gene K.H. Attending Clinician Mariana Edwards S Attending Clinician MARIANA VENCES Attending Clinician Unavailable Diana WHEELER, Jelly Kraft Attending Clinician GENE EGAN K.H. Attending Clinician Unavailable Martha Levy RN Attending Clinician Unavailable Chrissy KATZ, Yenifer Attending Clinician Barney Naiduya S Attending Clinician [...] Expiration Date Ally cm MEDICARE A B [id number] 2005 00:00:00 GENERIC MEDICARE [id number] 2015 SUPPLEMENT 00:00:00 MEDICARE PART A \\T\\ [id number] 2005 B 00:00:00 COMMERCIAL [id number] 2010 NON-CONTRACT 00:00:00 GENERIC MEDICARE PART A \\T\\ [id number] B - MEDICARE MEDIGAP-GENERIC - [id number] 2010 GENERIC PAYOR 00:00:00 AAR MEDICARE [id number] SUPPLEMENT PLAN - [facility] GENERIC-BEECH [id number] [facility] Problems Condition Condition Condition Status Onset Resolution Last Treating Co mments Source Name Details Category Date Date Treatment Clinician Date 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 [facility] [place] Hydrourete Hydrourete Disease Active [facility] r r 5-04 College 00:00: Medicin e Nephrostom Nephrostom Disease Active B aylor y status y status 5-04 Colleg e (HCCode) (HCCode) 00:00: of 00 Medicin e CHARY (acute CHARY (acute Disease Active [facility] kidney kidney 4-26 [facility] injury) injury) 00:[facility] Medical 00 Center Atrial Atrial Disease Active [facility] fibrillati fibrillati 4-26 Tracy kes on on 00:00: Medical [place] Benign Benign Disease Active [facility]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 4-26 [facility] HTN HTN 00:00: Medical Center Hydronephr Hydronephr Disease Active [facility] osis osis 24 [facility] [place] SEVERE SEVERE Diagnosis Active 2021-12-22 Henry hairston HYDRONEPHR HYDRONEPHR 12-12 21:45:00 l OSIS OSIS 00:00: Rodman Active 12/12/2021 [facility] HYDRONEHRO HYDRONEHR Diagnosis Active 2021-12-12 David SIS OSIS 02 15:22:00 l Active 00:00: Fredo 12/12/2021 [facility] Joint pain Joint pain Disease Active U nivers 3-10 ity of 00:00: [place] [facility] Abnormal Abnormal Disease Active Unive rs gait gait 3-10 ity of 00:00: [facility] Muscle Muscle Disease Active Univers weakness weakness 3-10 ity of 00:00: [place] [facility] Nonrheumat Nonrheumat Disease Active 2020-0 U nivers ic aortic ic aortic 5-11 ity of valve valve 00:00: [place] insufficie insufficie 00 Me dical ncy ncy Branch PAF PAF Disease Active 2020-0 Univers (paroxysma (paroxysma 5-11 it y of l atrial l atrial 00:00: [place] fibrillati fibrillati 00 Me dical on) on) Branch 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 00:00: [place] 00 [facility] Essential Essential Disease Active 2020-0 Uni vers hypertensi hypertensi 2-01 it y of on on 00:00: [place] 00 [facility] 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 00:00: [place] [facility] Dizzy Dizzy Disease Active 2020-0 Univers spells spells 2-01 ity of 00:00: [place] 00 [facility] 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, sinus a, sinus 2-01 ity of 00:00: [place] 00 [facility] Atypical Atypical Disease Active 2020-0 Unive rs chest pain chest pain 1-30 it y of 00:00: [place] 00 [facility] 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 a 1-23 ity of 00:00: [place] [facility] Meningioma Meningioma Disease Active 2015-[address] [facility]15 [facility] Center Brain Brain Disease Active 2015-[address] tumor tumor 2-15 [facility] Center Hyperlipid Hyperlipid Disease Active 2015-09 B aylor emia emia 209 College 00:00: of 00 Medicin e BPH BPH Disease Active 2015-09 [facility] (benign (benign 10-21 College prostatic prostatic 00:00: of hyperplasi hyperplasi 00 Me dicin a) a) e History of History of Disease Active 2015-09 [facility] colon colon 10-21 [place] cancer cancer 00:00: of 00 Medicin e Meningioma Meningioma Disease Active 2015-09 [facility] 10-21 [place] 00:00: of 00 Medicin e Tobacco Tobacco Disease Active 2015-09 [facility] abuse abuse 10-21 [place] 00:00: of 00 Medicin e Preoperati Preoperati Disease Active 2015-09 [facility] ve ve 10-21 [place] cardiovasc cardiovasc 00:00: of ular ular 00 Medicin examinatio examinatio e n n Focal Focal Disease Active 2015-[address] seizure seizure 206 [facility] Center Seizure Seizure Disease Active 2015-[address] 2-06 [facility] 00:[facility] Center Colon Colon Disease Active 2015-[address] cancer cancer 206 [facility] 00[facility] Center Alcohol Alcohol Disease Active 2015-[address] abuse abuse 2 [facility] 00:[facility] Medical [facility] Center Hyperlipid Hyperlipid Disease Active 2015-[address] emia emia 206 [facility] Center BPH BPH Disease Active 2015-[address] (benign (benign 2 [facility] prostatic prostatic 00:00: Medi emmanuel hyperplasi hyperplasi 00 Ce nter a) a) Sleep Sleep Disease Active [facility] apnea apnea 5-14 College 00:00: of 00 Medicin e Chest Chest Disease Active [facility] tightness tightness 5-14 Юлия ege 00:00: of 00 Medicin e Muscle Muscle Disease Active 2009-09 [facility] wasting wasting 10-10 College 00:00: of 00 Medicin e Decreased Decreased Disease Active 2009-09 Laurel maira appetite appetite 10-10 Colleg e 00:00: of 00 Medicin e Irritable Irritable Disease Active 2009-09 [place] maira 1-29 College 00:00: of 00 Medicin e ADENOCARCI ADENOCARCI Disease Active B aymaira NOMA, NOMA, 3-14 College COLON COLON 00:00: of 00 Medicin e DYSPNEA ON DYSPNEA ON Disease Active B roly EXERTION EXERTION 8-15 Colleg e 00:00: of 00 Medicin e COUGH COUGH Disease Active [facility] 8-15 College 00:00: of 00 Medicin e No known No known Disease Metho di active active st problems problems Hospit a l Muscle Muscle Problem Active 2022-01-14 Sergei kristina strain strain 23:33:48 l (disorder) (disorder) He rmann Active Problem 01/14/2022 [facility] Group [place] of [place] of Problem Active 2022-01-14 Me moria urinary urinary 23:33:48 l bladder bladder Fredo (finding) (finding) Active Problem 01/14/2022 Medical Group Penile Penile Problem Common pain pain [facility] [id number] Incomplete Problem Co mmon emptying [facility] of bladder [facility] [id number] BPH loc w Problem Com mon urin [facility] obs/LUTS - [facility] [id number] Pain in Problem Comm on [id number] left [facility] testicle [facility] [id number] 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) [facility] [id number] Ureter Problem Common filling [facility] defect [facility] [id number] Pelvic Problem Commo n 9101 pain in Spirit male [facility] [id number] 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 [facility] [id number] 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 [facility] 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 Spir it - [facility] [id number] Deep left Problem Co mmon [id number] inguinal Spirit pain [facility] [id number] Hip pain, Problem Comm on left [facility] [id number] Other Problem Common retention Spirit of urine [facility] [id number] 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 - [facility] ureter [facility] [id number] Pain of Problem Commo n left femur [facility] [id number] Status Problem Common post Spirit ureteral - [facility] [id number] Epididymit Problem Com mon is, left [facility] [id number] Ureteral Problem Commo n stricture, Spirit left [facility] [id number] Bladder Problem Commo n tumor [facility] [id number] Ureter, Problem Common ectopic [facility] [id number] Other Problem Common postproced [facility] ural - [facility] complicati [facility] genitourin asif system [id number] OAB Problem Common (overactiv Spirit e bladder) [facility] [id number] Pain, Problem Commo n [id number] joint, Spirit shoulder, - [facility] left [facility] Malignant Malignant Problem Com mon tumor of neoplasm Spirit ureter of - [facility] unspecifie [facility] Bladder Bladder Problem Common cancer cancer [facility] Allergies, Adverse Reactions, Alerts Allergy Allergy Status Severity Reaction(s) Onset Inactive Treating Comm ents Source Name Type Date Date Clinician Hydromor Propensi Active hallucina [facility] adverse 00:00: Medical reaction 00 [place] HYDROMOR Allergy Active [facility] PHONE 05-03 [facility] Center HYDROMOR DRUG Active Hallucinates Un pili PHONE INGREDI 05-03 ity of 00:00: [address] Branch delavird delavird Active Unknown Commo n ine ine [facility] hydromor hydromor Active Unknown Commo n phone phone [facility] NO KNOWN Drug Active Univers ALLERGIE Class ity of S [facility] NO KNOWN Allergy Active [facility] ALLERGIE S Social History Social Habit Start Date Stop Date Quantity Comments Source History [facility] Housing Places Medical Ce nter Lived History of Common Spirit - Tobacco Use [facility] Exposure to 2022-05-22 2022-06-01 Not sure University SARS-CoV-2 00:00:00 18:44:00 [facility] (event) Branch Alcohol intake 2022-05-03 2022-05-03 Current drinker of [facility]00 alcohol (finding) Medical Center History [facility] 2022-01-04 2022-01-[address] [facility] Housing Unable 00:00:00 00:00:00 Medical Ce nter to Pay History [facility] 2022-01-04 2022-01-[address] [facility] Homeless 00:00:00 00:00:00 Medical Center Last Year Tobacco use and 2022-01-03 2022-01-03 Never used [facility] exposure 00:00:00 00:00:00 [facility] Alcohol Comment 2021-07-07 2021-07-07 wine [employer] 00:00:00 00:00:00 Hospital Tobacco Comment 2016-08-25 2016-08-25 smokes pipe x6 [facility] yrs; previously Medical C enter educated Sex Assigned At [birth year] [employer] 00:00:00 00:00:00 Hospital Smoking Status Start Date Stop Date Source Former Smoker 2022-10-13 00:00:00 2022-10-13 Common [facility] Medical Ce nter Social History 2021-12-12 22:47:18 [facility] Occasional tobacco smoker 2012-01-25 00:00:00 [facility] Medications Ordered Filled Start Stop Current Ordering Indication Dosage Frequency Signature Comments Components Source Medication Medication Date Date Medication? Clinician (SIG) Name Name BCG BCG No 50mg Common 2-01 Spirit 00:00: - [facility] 00 [facility] BCG BCG No 50mg Common 2-01 Spirit 00:00: - [facility] 00 [facility] Amoxicillin Amoxicillin 2023-0 2023- No 1{table BID Amoxicilli -Pot -Pot 210-27 t} n-Pot Clavulanate Clavulanate 00:00: 00:00 Clavulanat 875-125 MG 875-125 MG 00 :00 e 875-125 MG Amoxicillin Amoxicillin 2023-0 2023- No 1{table BID Amoxicilli -Pot -Pot 10-13 t} n-Pot Clavulanate Clavulanate 00:00: 00:00 Clavulanat 875-125 MG 875-125 MG 00 :00 e 875-125 MG BCG BCG 2023-0 No 50mg Common 10-06 Spirit 00:00: - CHI 00 [facility] BCG BCG 2023-0 No 50mg Common 10-06 Spirit 00:00: - [facility]I 00 [facility] BCG BCG 2023-0 No 50mg Common 10-06 Spirit 00:00: - [facility]I 00 [facility] BCG BCG 2023-0 No 50mg Common 09-29 Spirit 00:00: - [facility]I 00 [facility] BCG BCG 2023-0 No 50mg Common 09-29 Spirit 00:00: - CHI 00 [facility] BCG BCG 2023-0 No 50mg Common 09-29 Spirit 00:00: - [facility]I 00 [facility] BCG BCG 2023-0 No 50mg Common 09-29 Spirit 00:00: - [facility]I 00 [facility] Amoxicillin Amoxicillin 2023-0 2023- No 1{table BID Amoxicilli -Pot -Pot 09-19 t} n-Pot Clavulanate Clavulanate 00:00: 00:00 Clavulanat 875-125 MG 875-125 MG 00 :00 e 875-125 MG BCG BCG 2023-0 No 50mg Common 09-15 Spirit 00:00: - [facility]I 00 [facility] BCG BCG 2023-0 No 50mg Common 09-15 Spirit 00:00: - [facility]I 00 [facility] BCG BCG 2023-0 No 50mg Common 09-15 Spirit 00:00: - [facility]I 00 [facility] BCG BCG 2023-0 No 50mg Common 09-15 Spirit 00:00: - [facility]I 00 [facility] BCG BCG 2023-0 No 50mg Common 1-04 Spirit 00:00: - [facility]I 00 [facility] BCG BCG 3-0 No 50mg Common 1-04 Spirit 00:00: - CHI 00 [facility] BCG BCG 2021-1 No 50mg Common 2- Spirit 00:00: - [facility]I 00 [facility] BCG BCG 2021-1 No 50mg Common 2- Spirit 00:00: - [facility]I 00 [facility] BCG BCG 2021-1 No 50mg Common 2- Spirit 00:00: - [facility]I 00 [facility] BCG BCG 2021-1 No 50mg Common 2- Spirit 00:00: - CHI 00 [facility] BCG BCG 2021-1 No 50mg Common 2- Spirit 00:00: - CHI 00 [facility] BCG BCG 2021-1 No 50mg Common 2- Spirit 00:00: - CHI 00 [facility] BCG BCG 2021-1 No 50mg Common 2- Spirit 00:00: - CHI 00 [facility] BCG BCG 2021-1 No 50mg Common 2- Spirit 00:00: - [facility]I 00 [facility] BCG BCG 2021-1 No 50mg Common 2- Spirit 00:00: - [facility]I 00 [facility] BCG BCG 2021-1 No 50mg Common 2- Spirit 00:00: - CHI 00 [facility] BCG BCG 2021-1 No 50mg Common 2- Spirit 00:00: - CHI 00 [facility] BCG BCG 2021-1 No 50mg Common 2-21 Spirit 00:00: - [facility]I 00 [facility] BCG BCG 2021-1 No 50mg Common 2- Spirit 00:00: - CHI 00 [facility] BCG BCG 2021-1 No 50mg Common 2- Spirit 00:00: - [facility]I 00 [facility] BCG BCG 2021-1 No 50mg Common 2-21 Spirit 00:00: - [facility]I 00 [facility] Lidocaine Lidocaine 2021-1 No 10mg Com mon 2- Spirit 00:00: - [facility]I 00 [facility] Kenalog Kenalog 2021-1 No 40mg Common (Triamcinol (Triamcinol 2-07 S pirit one) one) 00:00: - CHI 00 [facility] Lidocaine Lidocaine 2021- No 10mg Com 10-19 Spirit 00:00: - CHI 00 [facility] Kenalog Kenalog 2021- No 40mg Common (Triamcinol (Triamcinol 2-07 S pirit one) one) 00:00: - CHI 00 [facility] Lidocaine Lidocaine 2021- No 10mg Com 10-19 Spirit 00:00: - CHI 00 [facility] Kenalog Kenalog 2021- No 40mg Common (Triamcinol (Triamcinol 2-07 S pirit one) one) 00:00: - CHI 00 [facility] Lidocaine Lidocaine 2021- No 10mg Com 10-19 Spirit 00:00: - CHI 00 [facility] Kenalog Kenalog 2021- No 40mg Common (Triamcinol (Triamcinol 2-07 S pirit one) one) 00:00: - CHI 00 [facility] Lidocaine Lidocaine 2021- No 10mg Com 10-19 Spirit 00:00: - [facility]I 00 [facility] Kenalog Kenalog 2021- No 40mg Common (Triamcinol (Triamcinol 2-07 S pirit one) one) 00:00: - CHI 00 [facility] Lidocaine Lidocaine 2021- No 10mg Com 10-19 Spirit 00:00: - [facility]I 00 [facility] Kenalog Kenalog 2021- No 40mg Common (Triamcinol (Triamcinol 2-07 S pirit one) one) 00:00: - CHI [facility] Lidocaine Lidocaine 2021-1 No 10mg Com 10-19 Spirit 00:00: - CHI 00 [facility] Kenalog Kenalog 2021-1 No 40mg Common (Triamcinol (Triamcinol 2-07 S pirit one) one) 00:00: - CHI 00 [facility] Lidocaine Lidocaine 2021-1 No 10mg Com 10-19 Spirit 00:00: - [facility]I 00 [facility] Kenalog Kenalog 2021-1 No 40mg Common (Triamcinol (Triamcinol 2-07 S pirit one) one) 00:00: - CHI 00 [facility] Trospium Trospium 2021-3- No 1{table BID Trospium Chloride 20 Chloride 20 10-14 t} Chloride MG MG 00:00: 00:00 20 MG 00 :00 Trospium Trospium 2021- 2023- No 1{table BID Trospium Chloride 20 Chloride 20 10-14 t} Chloride MG MG 00:00: 00:00 20 MG 00 :00 Trospium Trospium 2021- 2023- No 1{table BID Trospium Chloride 20 Chloride 20 10-14 t} Chloride MG MG 00:00: 00:00 20 MG 00 :00 Trospium Trospium 2021-3- No 1{table BID Trospium Chloride 20 Chloride 20 10-14 t} Chloride MG MG 00:00: 00:00 20 MG 00 :00 Trospium Trospium 2021- 2023- No 1{table BID Trospium Chloride 20 Chloride 20 10-14 t} Chloride MG MG 00:00: 00:00 20 MG 00 :00 Trospium Trospium 2021- 2023- No 1{table BID Trospium Chloride 20 Chloride 20 10-14 t} Chloride MG MG 00:00: 00:00 20 MG 00 :00 Trospium Trospium 2021-3- No 1{table BID Trospium Chloride 20 Chloride 20 10-14 t} Chloride MG MG 00:00: 00:00 20 MG 00 :00 Trospium Trospium 2021- 2023- No 1{table BID Trospium Chloride 20 Chloride 20 10-14 t} Chloride MG MG 00:00: 00:00 20 MG 00 :00 carbidopa-l 2021-3- No 1{tbl} Q.5D TAKE 1 M ethodi evodopa 10-[address] (SINEMET 00:00: 05:59 MOUTH 2 Hospi ta CR) 50-200 00 :00 (TWO) l mg per CR TIMES A tablet DAY FOR 90 DAYS. carbidopa-l 2021-3- No 1{tbl} Q.5D TAKE 1 M ethodi evodopa 10-[address] (SINEMET 00:00: 05:59 MOUTH 2 Hospi ta CR) 50-200 00 :00 (TWO) l mg per CR TIMES A tablet DAY FOR 90 DAYS. econazole 2021-0 Yes QD Apply [facility] nitrate 8-25 topically [facility] (SPECTAZOLE 09:33: daily. [facility] ) 1 % cream 29 Center tamsulosin 2021-0 Yes .4mg QD Take 0.[address] [...] nitrate 8-25 topically [facility] (SPECTAZOLE 09:33: daily. [facility] emmanuel ) 1 % cream 29 Center tamsulosin 2021-0 Yes .4mg QD Take 0.[address] (FLOMAX) 8-25 mg by [facility] 0.4 mg Cp24 09:33: mouth Medic al 24 hr 29 nightly. Center capsule finasteride 2021-0 Yes 5mg QD Take [address] (PROSCAR) 5 8-25 by mouth Luke s mg tablet 09:33: nightly. Medi emmanuel 29 [place] silver 2021-0 Yes QD Apply [facility] sulfADIAZIN 8-25 topically Kristopher es E 09:33: daily. [facility]) 1 % cream famotidine 2021-0 Yes 20mg [...] 09:33: daily. Medical tablet 29 Center apixaban 0 Yes 2.5mg Q.5D Take 2.[address] (Eliquis) 8-25 mg by [facility] 2.5 mg Tab 09:33: mouth 2 Medi emmanuel tablet 29 (two) Center times daily. econazole 2021-0 Yes QD Apply [facility] nitrate 8-25 topically [facility] (SPECTAZOLE 09:33: daily. [facility] ) 1 % cream 29 Center tamsulosin 0 Yes .4mg QD Take 0.[address] (FLOMAX) 8-25 mg by [facility] 0.4 mg Cp24 09:33: mouth Medic al 24 hr 29 nightly. [place] capsule finasteride 2021-0 Yes 5mg QD Take [address] (PROSCAR) 5 8-25 by mouth Luke s mg tablet 09:33: nightly. [facility] emmanuel 29 Center silver 2021-0 Yes QD Apply [facility] sulfADIAZIN 8-25 topically Kristopher es E 09:33: daily. [facility]) 1 % cream famotidine 2021-0 Yes 20mg Q.5D Take [address] (PEPCID) 20 8-25 by mouth 2 Tracy kes MG tablet 09:33: (two) Medical 29 times Center daily. metoprolol 2021-0 Yes hypertensio 50mg QD Take [address] succinate 8-25 n by mouth [facility] (TOPROL-XL) 09:33: daily. Medi emmanuel 50 MG 24 hr 29 [place] tablet predniSONE Yes 20mg QD Take [address] (DELTASONE) 8-25 by mouth Luke s 20 MG 09:33: daily. Medical tablet 29 Center apixaban Yes 2.5mg Q.5D Take 2.[address] (Eliquis) 8-25 mg by [facility] 2.5 mg Tab 09:33: mouth 2 Medi emmanuel tablet 29 (two) Center times daily. meclizine Yes Take by Jemal solorio (ANTIVERT) 5-04 mouth. College 12.5 MG 11:52: of tablet 07 Medicin e B 2021- No Take by [facility]-C-F - 05-04 mouth. Colle ge olic Acid 11:51: 00:00 of (NEPHRO-VIT 48 :00 Medicin E) 0.8 MG e TABS lisinopriL 2021- No hypertensio 20mg QD Take [address] (PRINIVIL,Z 4-26 04-26 n by mouth Kristopher es ESTRIL) 20 13:05: 00:00 daily. Medi emmanuel MG tablet 14 :00 [place] lisinopriL 2021- No hypertensio 20mg QD Take [address] (PRINIVIL,Z 4-26 04-26 n by mouth Kristopher es ESTRIL) 20 13:05: 00:00 daily. Medi emmanuel MG tablet 14 :00 [place] lisinopriL 2021- No hypertensio 20mg QD Take [address] (PRINIVIL,Z 4-26 04-26 n by mouth Kristopher es ESTRIL) 20 13:05: 00:00 daily. Medi emmanuel MG tablet 14 :00 [place] lisinopriL Yes hypertensio 20mg QD Take 1 [...] doctor and have blood work repeated. ciprofloxac 202- No 500mg Q.5D Take [address] in HCl 4-26 05-03 tablet [facility] (CIPRO) 500 00:00: 23:59 (500 mg Me dical MG tablet 00 :00 total) by Cente r mouth 2 (two) times daily for 7 days. ciprofloxac 2021-0 2021- No 500mg Q.5D Take [address] in HCl 4-26 05-03 tablet [facility] (CIPRO) 500 00:00: 23:59 (500 mg Me dical MG tablet 00 :00 total) by Cente r mouth 2 (two) times daily for 7 days. ciprofloxac 2021-0 2- No 500mg Q.5D Take [address] in HCl 4-26 05-03 tablet [facility] (CIPRO) 500 00:00: 23:59 (500 mg Me dical MG tablet 00 :00 total) by [facility] mouth 2 (two) times daily for 7 days. amoxicillin Yes TAKE 1 [facility] -clavulanat 4-21 TABLET BY legagusto e 00:00: MOUTH of (AUGMENTIN) 00 EVERY 8 Medic in 500-125 MG HOURS FOR e per tablet 7 DAYS dexamethaso Yes TAKE 1 [facility] ne 4-18 TABLET BY [place] (DECADRON) 00:00: MOUTH of 4 MG tablet 00 TWICE A Medic in DAY e Robaxin 500 Yes 500 mg = 1 Memoria mg oral 4-11 tab, PO, l tablet 19:16: QID, X 7 Rodman 00 day, # 28 tab, 0 Refill(s), Pharmacy: [facility] #[id number], 180.34, cm, 12/12/21 18:09:00 CDT, Height, 94.545, kg, 12/12/21 18:09:00 CDT, Weight Robaxin 500 Yes 500 mg = 1 Memoria mg oral 4-11 tab, PO, l tablet 19:16: QID, X 7 Fredo 00 day, # 28 tab, 0 Refill(s), Pharmacy: [email or web address] #[id number], 180.34, cm, 12/12/21 18:09:00 CDT, Height, 94.545, kg, 12/12/21 18:09:00 CDT, Weight Robaxin 500 Yes 500 mg = 1 Memoria mg oral 4-11 tab, PO, l tablet 19:16: QID, X 7 Fredo 00 day, # 28 tab, 0 Refill(s), Pharmacy: [email or web address] #[id number], 180.34, cm, 12/12/21 18:09:00 CDT, Height, 94.545, kg, 12/12/21 18:09:00 CDT, Weight Robaxin 500 Yes 500 mg = 1 Memoria mg oral 4-11 tab, PO, l tablet 19:16: QID, X 7 Rodman 00 day, # 28 tab, 0 Refill(s), Pharmacy: [email or web address] #[id number], 180.34, cm, 12/12/21 18:09:00 CDT, Height, 94.545, kg, 12/12/21 18:09:00 CDT, Weight docusate No Notes: Memoria 4-03 (Same as: l 14:00: Colace) Fredo (Do Not Crush) thiamine No Notes: [facility]oria 4-03 (Same As: l 14:00: Vitamin Fredo 00 B1) docusate No Notes: [facility]oria 4-03 (Same as: l 14:00: Colace) Fredo 00 (Do Not Crush) thiamine No Notes: Memoria 4-03 (Same As: l 14:00: Vitamin Rodman 00 B1) docusate No Notes: Memoria 4-03 (Same as: l 14:00: Colace) Fredo 00 (Do Not Crush) thiamine No Notes: Memoria 4- (Same As: l 14:00: Vitamin Fredo 00 B1) docusate No Notes: Memoria 4- (Same as: l 14:00: Colace) Rodman 00 (Do Not Crush) thiamine No Notes: Memoria 4- (Same As: l 14:00: Vitamin Fredo 00 [...] tab, PO, l tablet 22:55: Daily, 0 Rodman 00 Refill(s) Metoprolol Yes 50 mg = 1 Me moria Succinate 4-02 tab, PO, l ER 50 mg 22:55: Daily, # Sunita nn oral 00 30 tab, 0 tablet, Refill(s) extended release predniSONE Yes 20 mg = 1 Me moria 20 mg oral 4-02 tab, PO, l tablet 22:55: Daily, 0 Rodman 00 Refill(s) Metoprolol Yes 50 mg = 1 Me moria Succinate 4-02 tab, PO, l ER 50 mg 22:55: Daily, # Sunita nn oral 00 30 tab, 0 tablet, Refill(s) extended release predniSONE 2022-0 Yes 20 mg = 1 Me moria 20 mg oral 4-02 tab, PO, l tablet 22:55: Daily, 0 Fredo 00 Refill(s) Metoprolol 2-0 Yes 50 mg = 1 Me moria Succinate 4-02 tab, PO, l ER 50 mg 22:55: Daily, # Sunita nn oral 00 30 tab, 0 tablet, Refill(s) extended release predniSONE 2022-0 Yes 20 mg = 1 Me moria 20 mg oral 4-02 tab, PO, l tablet 22:55: Daily, 0 Rodman 00 Refill(s) carbidopa-l 2021-0 Yes 1 tab, PO, Memoria evodopa 50 4-02 BID, # 60 l mg-200 mg 22:54: tab, 0 Eliot n oral 00 Refill(s) tablet, extended release lisinopril 2021-0 Yes 20 mg = 1 Me moria 20 mg oral 4-02 tab, PO, l tablet 22:54: Daily, # Fredo 00 30 tab, 0 Refill(s) lisinopril 2021-0 Yes 20 mg = 1 Me moria 20 mg oral 4-02 tab, PO, l tablet 22:54: Daily, # Rodman 00 30 tab, 0 Refill(s) carbidopa-l 2021-0 Yes 1 tab, PO, Memoria evodopa 50 4-02 BID, # 60 l mg-200 mg 22:54: tab, 0 Eliot n oral 00 Refill(s) tablet, extended release lisinopril 2-0 Yes 20 mg = 1 Me moria 20 mg oral 4-02 tab, PO, l tablet 22:54: Daily, # Rodman 00 30 tab, 0 Refill(s) carbidopa-l 2-0 Yes 1 tab, PO, Memoria evodopa 50 4-02 BID, # 60 l mg-200 mg 22:54: tab, 0 Eliot n oral 00 Refill(s) tablet, extended release lisinopril 2-0 Yes 20 mg = 1 Me moria 20 mg oral 4-02 tab, PO, l tablet 22:54: Daily, # Fredo 00 30 tab, 0 Refill(s) carbidopa-l 2-0 Yes 1 tab, PO, [facility]oria evodopa 50 4-02 BID, # 60 l mg-200 mg 22:54: tab, 0 Eliot n oral 00 Refill(s) tablet, extended release Eliquis 5 2021-0 Yes 5 mg, PO, Mem oria mg oral 4-02 Q12H, tab, l tablet 22:53: 0 Fredo 00 Refill(s), For Atrial Fibrilatio n Eliquis 5 2021-0 Yes 5 mg, PO, Mem oria mg oral 4-02 Q12H, tab, l tablet 22:53: 0 Fredo 00 Refill(s), For Atrial Fibrilatio n Eliquis 5 2021-0 Yes 5 mg, PO, Mem oria mg oral 4-02 Q12H, tab, l tablet 22:53: 0 Rodman 00 Refill(s), For Atrial Fibrilatio n Eliquis 5 2021-0 Yes 5 mg, PO, Mem oria mg oral 4-02 Q12H, tab, l tablet 22:53: 0 Rodman 00 Refill(s), For Atrial Fibrilatio n hydrALAZINE 0 Yes 50 mg = 1 M emoria 50 mg oral 4-02 tab, PO, l tablet 22:52: BID, 0 Rodman 00 Refill(s) hydrALAZINE 2021-0 Yes 50 mg = 1 M emoria 50 mg oral 4-02 tab, PO, l tablet 22:52: BID, 0 Fredo 00 Refill(s) hydrALAZINE 2021-0 Yes 50 mg = 1 M emoria 50 mg oral 4-02 tab, PO, l tablet 22:52: BID, 0 Fredo 00 Refill(s) hydrALAZINE 2021-0 Yes 50 mg = 1 M emoria 50 mg oral 4-02 tab, PO, l tablet 22:52: BID, 0 Fredo 00 Refill(s) D10W 2021-0 No 125 mL, Memoria (bolus) IV 4-02 999 ml/hr, l 22:32: Route: Fredo 00 IVPB, Drug Form: INJ, kg, PRN, PRN Blood Glucose Results, Start date: 12/12/21 17:32:00 CDT, Duration: 30 day, Stop date: 01/11/22 17:31:00 CDT, Infuse over: 0.1 hr, 0 D10W 2021-0 No 125 mL, Memoria (bolus) IV 4-02 999 ml/hr, l 22:32: Route: Rodman 00 IVPB, Drug Form: INJ, kg, PRN, PRN Blood Glucose Results, Start date: 12/12/21 17:32:00 CDT, Duration: 30 day, Stop date: 01/11/22 17:31:00 CDT, Infuse over: 0.1 hr, 0 D10W 2021-0 No 125 mL, Memoria (bolus) IV 4-02 999 ml/hr, l 22:32: Route: Rodman 00 IVPB, Drug Form: INJ, kg, PRN, PRN Blood Glucose Results, Start date: 12/12/21 17:32:00 CDT, Duration: 30 day, Stop date: 01/11/22 17:31:00 CDT, Infuse over: 0.1 hr, 0 D10W 2021-0 No 125 mL, Memoria (bolus) IV 4-02 999 ml/hr, l 22:32: Route: Fredo 00 IVPB, Drug Form: INJ, kg, PRN, PRN Blood Glucose Results, Start date: 12/12/21 17:32:00 CDT, Duration: 30 day, Stop date: 01/11/22 17:31:00 CDT, Infuse over: 0.1 hr, 0 Dextrose 2021-0 No 25 mL, Memoria 50% Syringe 12-12 Route: l (D50W) 22:06: IVP, kg, Rodman 00 PRN, PRN Blood Glucose Results, Start date: 12/12/21 17:06:00 CDT, Duration: 30 day, Stop date: 01/11/22 17:05:00 CDT glucagon 2021-0 No 1 mg, Memoria 12-12 Route: IM, l 22:06: Drug form: Rodman 00 PDR/INJ, PRN, kg, PRN Blood Glucose [...] 12-12 not exceed l 22:06: 4 gm/day. Fredo 00 (Same as: Tylenol) Dextrose No 25 mL, Memoria 50% Syringe 12-12 Route: l (D50W) 22:06: IVP, kg, Fredo PRN, PRN Blood Glucose Results, Start date: 12/12/21 17:06:00 CDT, Duration: 30 day, Stop date: 01/11/22 17:05:00 CDT glucagon 0 No 1 mg, Memoria 12-12 Route: IM, l 22:06: Drug form: Rodman 00 PDR/INJ, PRN, kg, PRN Blood Glucose Results, Start date: 12/12/21 17:06:00 CDT, Duration: 30 day, Stop date: 01/11/22 17:05:00 CDT, 0 ondansetron No Notes: Sergei kristina 12-12 (Same as: l 22:06: Zofran) MEDICATION WASTE Product Size: 4 mg Product Wasted: ___ mg melatonin No Notes: Memori a 12-12 (Same as: l 22:06: Melatonin) acetaminoph No Notes: Do M jorgitoria en 12-12 not exceed l 22:06: 4 gm/day. Rodman 00 (Same as: Tylenol) Dextrose No 25 mL, Memoria 50% Syringe 12-12 Route: l (D50W) 22:06: IVP, kg, Rodman 00 PRN, PRN Blood Glucose Results, Start date: 12/12/21 17:06:00 CDT, Duration: 30 day, Stop date: 01/11/22 17:05:00 CDT glucagon 2021-0 No 1 mg, Memoria 12-12 Route: IM, l 22:06: Drug form: Fredo 00 PDR/INJ, PRN, kg, PRN Blood Glucose [...] Yes 1 tab, PO, Dominick evodopa CR 4-02 BID, # 60 Юлия ege 50-200 MG 00:00: tab, 0 of TBCR 00 Refill(s) Medicin e predniSONE Yes TAKE 1 [facility] (DELTASONE) 3-25 TABLET BY [facility]ge 20 MG 00:00: MOUTH of tablet 00 EVERY Medicin MORNING e WITH FOOD GABAPENTIN 2020-09 Yes TAKE 1 Unive rs 100 mg 1-12 CAPSULE BY ity of capsule 00:00: MOUTH THREE Medical TIMES A Branch GABAPENTIN 2020-09 Yes TAKE 1 Unive rs [...] day for 90 days. gabapentin 2020-09 Yes [id number] 3 (three) [facility] (NEURONTIN) 0-[id number] 100 mg 00:00: 3D day. [facility] capsule 00 l gabapentin 2020-09 Yes [id number] 3 (three) [facility] (NEURONTIN) 0-[id number] 100 mg 00:00: 3D day. Hospita capsule 00 l gabapentin 2020-09 Yes [id number] 3 (three) [facility] (NEURONTIN) 0-[id number] 100 mg 00:00: 3D day. Hospita capsule 00 l hydrALAZINE 2020-0 Yes Q.5D 2 (two) [facility] (APRESOLINE 9-[address] ) 50 MG 00:00: day. Hospita tablet 00 l hydrALAZINE 2020-0 Yes 50 mg = 1 [facility] (APRESOLINE 9-22 tab, PO, Юлия ege ) 50 MG 00:00: BID, 0 of tablet 00 Refill(s) Medicin e hydrALAZINE 2020-0 Yes Q.5D 2 (two) [facility] (APRESOLINE 9-[address] ) 50 MG 00:00: day. Hospita tablet 00 l hydrALAZINE 202-0 Yes Q.5D 2 (two) [facility] (APRESOLINE 9-[address] ) 50 MG 00:00: day. Hospita tablet 00 l tamsulosin 2020-0 Yes [facility] (FLOMAX) [facility]-21 st 0.4 mg 00:00: Hospita capsule 00 l Tamsulosin 2020-0 Yes [facility] HCl 0.4 MG 06-02 [facility] 00:00: 00 Medicin e tamsulosin 2020-0 Yes [facility] (FLOMAX) [facility]-21 st 0.4 mg 00:00: Hospita capsule 00 l tamsulosin 2020-0 Yes [facility] (FLOMAX) 9- st 0.4 mg 00:00: Hospita capsule 00 [...] st 00:00: day. Hospita 00 l lisinopriL 2020-0 Yes 20mg QD 20 mg [facility] (PRINIVIL) [address] 20 mg 00:00: Hospita tablet 00 l lisinopriL 2020-0 Yes 20mg QD 20 mg [facility] (PRINIVIL) 05-[address] 20 mg 00:00: Hospita tablet 00 l metoprolol 2021-0 Yes QD daily. Metho di succinate 05-31 st XL 00:00: Hospita (TOPROL-XL) 00 l 50 mg 24 hr tablet metoprolol 2021-0 Yes QD daily. Metho di succinate 05-31 st XL 00:00: Hospita (TOPROL-XL) 00 l 50 mg 24 hr tablet lisinopriL 2020-0 Yes 20mg QD 20 mg [facility] (PRINIVIL) 05-[address] 20 mg 00:00: Hospita tablet 00 l metoprolol 2021-0 Yes QD daily. Metho di succinate 05-31 st XL 00:00: Hospita (TOPROL-XL) 00 l 50 mg 24 hr tablet carbidopa-l 2020-0 Yes [id number] 1{tbl} Take 1 [facility] evodopa 1-29 tablet by ity of 25-100 mg 00:00: mouth 3 [place] tablet 00 (three) Medical times Branch daily. carbidopa-l Yes [id number] 1{tbl} Take 1 [facility] evodopa 1-29 tablet [...] by mouth ity of capsule 11:32: at [place] [address] bedtime. Medical Branch finasteride 2019-09 Yes 5mg Take 5 mg U nivers 5 mg tablet 2-28 by mouth ity of 11:32: daily. [place] [address] Medical Branch nortriptyli 2019-09 Yes 50mg Take 50 mg Univers ne 50 mg 2-28 by mouth ity of capsule 11:32: at [place] [address] bedtime. Medical Branch finasteride 2019-09 Yes 5mg Take 5 mg U nivers 5 mg tablet 2-28 by mouth ity of 11:32: daily. [address] Branch tamsulosin 2019-09 Yes .4mg Take 0.4 Uni vers (FLOMAX) 2-28 mg by ity of 0.4 mg 24 11:28: mouth [place] hr capsule 44 daily. Medical Branch magnesium 2019-09 Yes Take by Unive rs oxide 400 2-28 mouth ity of mg 11:28: daily. [place] magnesium 44 Indication Medi emmanuel capsule s: Branch "supposed to help with my balance problem" tamsulosin 2019-09 Yes .4mg Take 0.4 Uni vers (FLOMAX) 2-28 mg by ity of 0.4 mg 24 11:28: mouth [place] hr capsule 44 daily. Medical Branch magnesium 2019-09 Yes Take by Unive rs oxide 400 2-28 mouth ity of mg 11:28: daily. [place] magnesium 44 Indication Medi emmanuel capsule s: Branch "supposed to help with my balance problem" lisinopriL 2019-09 Yes [id number] 10mg Take 1 U nivers 10 mg 2-17 tablet by ity of tablet 00:00: mouth 00 daily. Medical Branch lisinopriL 2019-09 Yes [id number] 10mg Take 1 U nivers 10 mg 2-17 tablet by ity of tablet 00:00: mouth 00 daily. Medical Branch hydrALAZINE 2019-09 Yes [id number] 50mg Take 1 [facility] 50 mg 0-15 tablet by ity of tablet 00:00: mouth 2 [place] (two) Medical times Branch daily. hydrALAZINE 2019-09 Yes [id number] 50mg Take 1 [facility] 50 mg 0-15 tablet by ity of tablet 00:00: mouth 2 [place] (two) Medical times Branch daily. levetiracet 2021- No TAKE 1 [facility]urel maira am (KEPPRA) 03-16 TABLET BY [facility] llege 500 MG 00:00: 00:00 MOUTH of tablet 00 :00 TWICE Medicin DAILY e finasteride 2015-09 Yes TK 1 T PO [facility] (PROSCAR) 5 2-26 QD College MG tablet 00:00: of 00 Medicin e Cyanocobala 2015-09- No 1000ug Take 1,000 [facility] min 10-21- mcg by [place] (VITAMIN 00:00: 00:00 mouth of B-12 CR) 00 :00 daily. Medicin 1000 MCG e TBCR sildenafil 2021- No 50mg 1 Tab. [facility] citrate 01-29 take 1 hr Colleg e (VIAGRA) 50 00:00: 00:00 before of MG tablet 00 :00 sexual Medicin activity e ASPIRIN 81 2006-09 Yes po qd [facility] MG PO TABS 1-27 [place] 00:00: of 00 Medicin e PRED FORTE 2021- No 1 gtt os [facility] 1 % OP SUSP 01-17 q4 [place] 00:00: 00:00 of 00 :00 Medicin e Furosemide Furosemide No 1{table QD Furosemide 20 MG 20 MG t} 20 MG Meclizine Meclizine No 1{table QD Meclizine HCl 25 MG HCl 25 MG t_as_ne HCl 25 MG eded} Carbidopa-L Carbidopa-L No 1{table Carbidopa- evodopa evodopa t_as_ne Levodopa 25-100 MG 25-100 MG eded} 25-100 MG Eliquis Eliquis No Eliquis hydrALAZINE hydrALAZINE No 1{table TID hydrALAZIN HCl 50 MG HCl 50 MG t_with_ E HCl 50 food} MG predniSONE predniSONE No 1{table QD predniSONE 10 MG 10 MG t} 10 MG Metoprolol Metoprolol No 1{capsu QD Metoprolol Succinate Succinate le} Succinate 50 MG 50 MG 50 MG Tamsulosin Tamsulosin No 1{capsu QD Tamsulosin HCl 0.4 MG HCl 0.4 MG le} HCl 0.4 MG Tamsulosin Tamsulosin No 1{capsu QD Tamsulosin HCl 0.4 MG HCl 0.4 MG le} HCl 0.4 MG Eliquis Eliquis No Eliquis predniSONE predniSONE No 1{table QD predniSONE 10 MG 10 MG t} 10 MG Gabapentin Gabapentin No 1{capsu QD Gabapentin 100 MG 100 MG le} 100 MG Carbidopa-L Carbidopa-L No 1{table Carbidopa- evodopa evodopa t_as_ne Levodopa 25-100 MG 25-100 MG eded} 25-100 MG Metoprolol Metoprolol No 1{capsu QD Metoprolol Succinate Succinate le} Succinate 50 MG 50 MG 50 MG hydrALAZINE hydrALAZINE No 1{table TID hydrALAZIN HCl 50 MG HCl 50 MG t_with_ E HCl 50 food} MG Furosemide Furosemide No 1{table QD Furosemide 20 MG 20 MG t} 20 MG Lisinopril Lisinopril No 1{table QD Lisinopril 20 MG 20 MG t} 20 MG Klor-Con 10 Klor-Con 10 No 1{table BID Klor-Con 10 MEQ 10 MEQ t_with_ 10 10 MEQ food} Meclizine Meclizine No 1{table QD Meclizine HCl 25 MG HCl 25 MG t_as_ne HCl 25 MG eded} Metoprolol Metoprolol No 1{capsu QD Metoprolol Succinate Succinate le} Succinate 50 MG 50 MG 50 MG Furosemide Furosemide No 1{table QD Furosemide 20 MG 20 MG t} 20 MG hydrALAZINE hydrALAZINE No 1{table TID hydrALAZIN HCl 50 MG HCl 50 MG t_with_ E HCl 50 food} MG Klor-Con 10 Klor-Con 10 No 1{table BID Klor-Con 10 MEQ 10 MEQ t_with_ 10 10 MEQ food} Gabapentin Gabapentin No 1{capsu QD Gabapentin 100 MG 100 MG le} 100 MG predniSONE predniSONE No 1{table QD predniSONE 10 MG 10 MG t} 10 MG Tamsulosin Tamsulosin No 1{capsu QD Tamsulosin HCl 0.4 MG HCl 0.4 MG le} HCl 0.4 MG Lisinopril Lisinopril No 1{table QD Lisinopril 20 MG 20 MG t} 20 MG Meclizine Meclizine No 1{table QD Meclizine HCl 25 MG HCl 25 MG t_as_ne HCl 25 MG eded} Eliquis Eliquis No Eliquis Carbidopa-L Carbidopa-L No 1{table Carbidopa- evodopa evodopa t_as_ne Levodopa 25-100 MG 25-100 MG eded} 25-100 MG Furosemide Furosemide No 1{table QD Furosemide 20 MG 20 MG t} 20 MG hydrALAZINE hydrALAZINE No 1{table TID hydrALAZIN HCl 50 MG HCl 50 MG t_with_ E HCl 50 food} MG Meclizine Meclizine No 1{table QD Meclizine HCl 25 MG HCl 25 MG t_as_ne HCl 25 MG eded} Lisinopril Lisinopril No 1{table QD Lisinopril 20 MG 20 MG t} 20 MG predniSONE predniSONE No 1{table QD predniSONE 10 MG 10 MG t} 10 MG Eliquis Eliquis No Eliquis Carbidopa-L Carbidopa-L No 1{table Carbidopa- evodopa evodopa t_as_ne Levodopa 25-100 MG 25-100 MG eded} 25-100 MG Klor-Con 10 Klor-Con 10 No 1{table BID Klor-Con 10 MEQ 10 MEQ t_with_ 10 10 MEQ food} Metoprolol Metoprolol No 1{capsu QD Metoprolol Succinate Succinate le} Succinate 50 MG 50 MG 50 MG Tamsulosin Tamsulosin No 1{capsu QD Tamsulosin HCl 0.4 MG HCl 0.4 MG le} HCl 0.4 MG Gabapentin Gabapentin No 1{capsu QD Gabapentin 100 MG 100 MG le} 100 MG Lisinopril Lisinopril No 1{table QD Lisinopril 20 MG 20 MG t} 20 MG Meclizine Meclizine No 1{table QD Meclizine HCl 25 MG HCl 25 MG t_as_ne HCl 25 MG eded} predniSONE predniSONE No 1{table QD predniSONE 10 MG 10 MG t} 10 MG Metoprolol Metoprolol No 1{capsu QD Metoprolol Succinate Succinate le} Succinate 50 MG 50 MG 50 MG hydrALAZINE hydrALAZINE No 1{table TID hydrALAZIN HCl 50 MG HCl 50 MG t_with_ E HCl 50 food} MG Eliquis Eliquis No Eliquis Tamsulosin Tamsulosin No 1{capsu QD Tamsulosin HCl 0.4 MG HCl 0.4 MG le} HCl 0.4 MG Klor-Con 10 Klor-Con 10 No 1{table BID Klor-Con 10 MEQ 10 MEQ t_with_ 10 10 MEQ food} Furosemide Furosemide No 1{table QD Furosemide 20 MG 20 MG t} 20 MG Gabapentin Gabapentin No 1{capsu QD Gabapentin 100 MG 100 MG le} 100 MG Carbidopa-L Carbidopa-L No 1{table Carbidopa- evodopa evodopa t_as_ne Levodopa 25-100 MG 25-100 MG eded} 25-100 MG Lisinopril Lisinopril No 1{table QD Lisinopril 20 MG 20 MG t} 20 MG Meclizine Meclizine No 1{table QD Meclizine HCl 25 MG HCl 25 MG t_as_ne HCl 25 MG eded} predniSONE predniSONE No 1{table QD predniSONE 10 MG 10 MG t} 10 MG Metoprolol Metoprolol No 1{capsu QD Metoprolol Succinate Succinate le} Succinate 50 MG 50 MG 50 MG hydrALAZINE hydrALAZINE No 1{table TID hydrALAZIN HCl 50 MG HCl 50 MG t_with_ E HCl 50 food} MG Eliquis Eliquis No Eliquis Tamsulosin Tamsulosin No 1{capsu QD Tamsulosin HCl 0.4 MG HCl 0.4 MG le} HCl 0.4 MG Klor-Con 10 Klor-Con 10 No 1{table BID Klor-Con 10 MEQ 10 MEQ t_with_ 10 10 MEQ food} Furosemide Furosemide No 1{table QD Furosemide 20 MG 20 MG t} 20 MG Gabapentin Gabapentin No 1{capsu QD Gabapentin 100 MG 100 MG le} 100 MG Carbidopa-L Carbidopa-L No 1{table Carbidopa- evodopa evodopa t_as_ne Levodopa 25-100 MG 25-100 MG eded} 25-100 MG Metoprolol Metoprolol No 1{capsu QD Metoprolol Succinate Succinate le} Succinate 50 MG 50 MG 50 MG Meclizine Meclizine No 1{table QD Meclizine HCl 25 MG HCl 25 MG t_as_ne HCl 25 MG eded} Gabapentin Gabapentin No 1{capsu QD Gabapentin 100 MG 100 MG le} 100 MG Furosemide Furosemide No 1{table QD Furosemide 20 MG 20 MG t} 20 MG Tamsulosin Tamsulosin No 1{capsu QD Tamsulosin HCl 0.4 MG HCl 0.4 MG le} HCl 0.4 MG predniSONE predniSONE No 1{table QD predniSONE 10 MG 10 MG t} 10 MG hydrALAZINE hydrALAZINE No 1{table TID hydrALAZIN HCl 50 MG HCl 50 MG t_with_ E HCl 50 food} MG Carbidopa-L Carbidopa-L No 1{table Carbidopa- evodopa evodopa t_as_ne Levodopa 25-100 MG 25-100 MG eded} 25-100 MG Lisinopril Lisinopril No 1{table QD Lisinopril 20 MG 20 MG t} 20 MG Klor-Con 10 Klor-Con 10 No 1{table BID Klor-Con 10 MEQ 10 MEQ t_with_ 10 10 MEQ food} Eliquis Eliquis No Eliquis Meclizine Meclizine No 1{table QD Meclizine HCl 25 MG HCl 25 MG t_as_ne HCl 25 MG eded} Carbidopa-L Carbidopa-L No 1{table Carbidopa- evodopa evodopa t_as_ne Levodopa 25-100 MG 25-100 MG eded} 25-100 MG Eliquis Eliquis No Eliquis Klor-Con 10 Klor-Con 10 No 1{table BID Klor-Con 10 MEQ 10 MEQ t_with_ 10 10 MEQ food} Tamsulosin Tamsulosin No 1{capsu QD Tamsulosin HCl 0.4 MG HCl 0.4 MG le} HCl 0.4 MG Furosemide Furosemide No 1{table QD Furosemide 20 MG 20 MG t} 20 MG Lisinopril Lisinopril No 1{table QD Lisinopril 20 MG 20 MG t} 20 MG predniSONE predniSONE No 1{table QD predniSONE 10 MG 10 MG t} 10 MG Metoprolol Metoprolol No 1{capsu QD Metoprolol Succinate Succinate le} Succinate 50 MG 50 MG 50 MG hydrALAZINE hydrALAZINE No 1{table TID hydrALAZIN HCl 50 MG HCl 50 MG t_with_ E HCl 50 food} MG Gabapentin Gabapentin No 1{capsu QD Gabapentin 100 MG 100 MG le} 100 MG Gabapentin Gabapentin No 1{capsu QD Gabapentin 100 MG 100 MG le} 100 MG Lisinopril Lisinopril No 1{table QD Lisinopril 20 MG 20 MG t} 20 MG Klor-Con 10 Klor-Con 10 No 1{table BID Klor-Con 10 MEQ 10 MEQ t_with_ 10 10 MEQ food} Immunizations Ordered Immunization Filled Immunization Date Status Commen ts Source Name Name SARS-COV-2 COVID-19 2021-05-20 Completed Unive rsity of MODERNA VACCINE 00:00:[address] [facility] SARS-COV-2 COVID-19 2021-05-20 Completed Unive rsity of MODERNA 12+ YRS 00:00:00 [facility] VACCINE Branch SARS-COV-2 COVID-19 2020-10-15 Completed Unive rsity of MODERNA VACCINE 00:00:[address] [facility] SARS-COV-2 COVID-19 2020-10-15 Completed Unive rsity of MODERNA 12+ YRS 00:00:00 [facility] VACCINE Branch SARS-COV-2 COVID-19 2020-09-17 Completed Unive rsity of MODERNA VACCINE 00:00:[address] [facility] SARS-COV-2 COVID-19 2020-09-17 Completed Unive rsity of MODERNA 12+ YRS 00:00:00 [facility] VACCINE Branch Pneumococcal 2019-10-05 Completed University o f Polysaccharide, 00:00:00 [facility] PPSV23 (PNEUMOVAX) Branch Pneumococcal 2019-10-05 Completed University o f Polysaccharide, 00:00:00 [facility] PPSV23 (PNEUMOVAX) [place] Influenza High Dose 2019-06-12 Completed Unive rsity of 00:00:00 [facility] Influenza High Dose 2019-06-12 Completed Unive rsity of 00:00:00 [facility] Hepatitis A Adult 2019-03-29 Completed Univers ity of 00:00:00 [facility] Hepatitis A Adult 2019-03-29 Completed Univers ity of 00:00:00 [facility] DTAP 2019-03-12 Completed University of 00:00:00 [facility] DTAP 2019-03-12 Completed University of 00:00:00 [facility] HEPATITIS A 2018-09-29 Completed University of 00:00:00 [facility] TDAP 2018-09-29 Completed University of 00:00:00 [facility] HEPATITIS A 2018-09-29 Completed University of 00:00:00 [facility] TDAP 2018-09-29 Completed University of 00:00:00 [facility] Pneumococcal 2016-08-[address] [facility] Polysaccharide 00:00:00 [facility] Ce [facility]ter (Pneumovax) Pneumococcal 2016-08-[address] [facility] Polysaccharide 00:00:00 Medical Ce [facility]ter (Pneumovax) Pneumococcal 2016-08-[address] [facility] Polysaccharide 00:00:00 Medical Ce nter (Pneumovax) Influenza (whole) 2016-06-10 Completed [facility] 00:00:00 of Medicine Td 2016-02-09 Completed University of 00:00:00 [facility] Td 2016-02-09 Completed University of 00:00:00 [facility] Influenza (whole) 2007-07-26 Completed [facility] 00:00:00 of Medicine Influenza (whole) 2006-06-15 Completed [facility] 00:00:00 of Medicine Influenza (whole) 2006-03-09 Completed [facility] 00:00:00 of Medicine Influenza (whole) 2005-11-10 Completed [facility] 00:00:00 of Medicine Influenza (whole) 2005-08-11 Completed [facility] 00:00:00 of Medicine Vital Signs Vital Name Observation Time Observation Value Comments Source height 2022-10-13 13:00:00 71 [in_i] [facility] weight 2022-10-13 13:00:00 214 [lb_av] [facility] temperature 2022-10-13 13:00:00 98.6 [degF] [facility] bmi 2022-10-13 13:00:00 29.84 kg/m2 [facility] height 2022-10-06 13:00:00 71 [in_i] [facility] weight 2022-10-06 13:00:00 214 [lb_av] [facility] temperature 2022-10-06 13:00:00 98.6 [degF] [facility] bmi 2022-10-06 13:00:00 29.84 kg/m2 [facility]00:00 94 % Common [facility] blood pressure 2022-10-06 13:00:00 132 mm[Hg] [facility] blood pressure 2022-10-06 13:00:00 68 mm[Hg] [facility] height 2022-09-15 15:15:00 71 [in_i] [facility] weight 2022-09-15 15:15:00 214 [lb_av] [facility] temperature 2022-09-15 15:15:00 98.6 [degF] [facility] bmi 2022-09-15 15:15:00 29.84 kg/m2 [facility] oximetry 2022-09-15 15:15:00 96 % [facility] 2022-09-15 15:15:00 16 /min Comm on [facility] blood pressure 2022-09-15 15:15:00 126 mm[Hg] [facility] blood pressure 2022-09-15 15:15:00 68 mm[Hg] [facility] height 2022-09-08 13:00:00 71 [in_i] Common S pirit [facility] weight 2022-09-08 13:00:00 214 [lb_av] [facility] temperature 2022-09-08 13:00:00 97.3 [degF] [facility] bmi 2022-09-08 13:00:00 29.84 kg/m2 [facility] oximetry 2022-09-08 13:00:00 99 % Common S pirit [facility] blood pressure 2022-09-08 13:00:00 136 mm[Hg] Common Spirit - systolic [facility] blood pressure 2022-09-08 13:00:00 84 mm[Hg] Common [facility] - diastolic [facility] height 2022-09-01 13:15:00 71 [in_i] Common [facility] weight 2022-09-01 13:15:00 214 [lb_av] [facility] temperature 2022-09-01 13:15:00 97.8 [degF] Common [facility] bmi 2022-09-01 13:15:00 29.84 kg/m2 [facility] oximetry 2022-09-01 13:15:00 96 % [facility] respiratory rate 2022-09-01 13:15:00 16 /min Comm on Spirit - [facility] blood pressure 2022-09-01 13:15:00 154 mm[Hg] Common [facility] - systolic [facility] blood pressure 2022-09-01 13:15:00 68 mm[Hg] Common [facility] - diastolic [facility] Systolic blood 2022-06-01 23:52:00 132 mm[Hg] [facility] Diastolic blood 2022-06-01 23:52:00 71 mm[Hg] [facility] Heart rate 2022-06-01 23:48:00 114 /min [facility] Body temperature 2022-06-01 23:48:00 36.89 Pattie [facility] Respiratory rate 2022-06-01 23:48:00 18 /min [facility] Body height 2022-06-01 23:48:00 180.3 cm [facility] Body weight 2022-06-01 23:48:00 101.424 kg [facility] BMI 2022-06-01 23:48:00 31.19 kg/m2 [facility] Oxygen saturation in 2022-06-01 23:48:00 97 /min [facility] Arterial blood by [facility] Pulse oximetry Branch HEIGHT 2022-05-03 07:32:00 180.3 cm WEIGHT 2022-05-03 07:32:00 100.699 kg HEIGHT 2022-05-03 07:32:00 180.3 cm WEIGHT 2022-05-03 07:32:00 100.699 kg HEIGHT 2022-05-03 07:32:00 180.3 cm WEIGHT 2022-05-03 07:32:00 100.699 kg Systolic blood 2022-01-13 16:42:00 116 mm[Hg] [facility] pressure Medicine Diastolic blood 2022-01-13 16:42:00 70 mm[Hg] [facility] pressure Medicine Heart rate 2022-01-13 16:42:00 77 /min [facility] Body height 2022-01-13 16:42:00 180.3 cm [facility] Body weight 2022-01-13 16:42:00 92.987 kg [facility] BMI 2022-01-13 16:42:00 28.59 kg/m2 [facility] Systolic blood 2022-05-03 17:31:00 97 mm[Hg] [facility] Diastolic blood 2022-05-03 17:31:00 50 mm[Hg] [facility] Heart rate 2022-05-03 17:31:00 96 /min [facility] Body temperature 2022-05-03 17:31:00 35.94 Pattie [facility] Respiratory rate 2022-05-03 17:31:00 18 /min [facility] Oxygen saturation in 2022-05-03 17:31:00 100 /min [facility] Arterial blood by Medical Ce nter Pulse oximetry Body height 2022-05-03 07:32:00 180.3 cm [facility] Body weight 2022-05-03 07:32:00 100.699 kg [facility] BMI 2022-05-03 07:32:00 30.96 kg/m2 [facility] Heart Rate 2021-12-13 01:12:24 [facility] Respitory Rate 2021-12-13 01:12:24 Memori al [facility] Systolic (mm Hg) 2021-12-13 01:12:14 Sergei rial [facility]o Diastolic (mm Hg) 2021-12-13 01:12:14 Mem orial [facility] Heart Rate 2021-12-13 01:12:14 [facility] Temperature Oral (F) 2021-12-13 01:11:50 97.6 F [facility] Height 2021-12-12 23:09:00 180.34 cm [facility] Weight 2021-12-12 23:09:00 [facility] BMI Calculated 2021-12-12 23:09:00 Memori al [facility] Heart Rate 2021-12-12 22:02:05 [facility] Respitory Rate 2021-12-12 22:02:05 Memori al [facility] Systolic (mm Hg) 2021-12-12 22:01:44 Sergei rial [facility] Diastolic (mm Hg) 2021-12-12 22:01:44 Mem orial [facility] Temperature Oral (F) 2021-12-12 22:00:54 97.7 F [facility] Systolic blood 2021-07-07 18:25:00 123 mm[Hg] [facility] pressure Diastolic blood 2021-07-07 18:25:00 72 mm[Hg] Metho dist [facility] pressure Heart rate 2021-07-07 18:25:00 84 /min [facility] Body temperature 2021-07-07 18:17:00 36.28 [facility] height 2021-07-07 18:17:00 177.8 cm [facility] Body weight 2021-07-07 18:17:00 93.895 kg [facility] BMI 2021-07-07 18:17:00 29.70 kg/m2 [facility] Procedures Procedure Date / Time Performing Clinician Source Performed IR NEPHROSTOMY TUBE 2022-05-03 13:35:00 Milad eMndez [facility] LEFT Center POCT-GLUCOSE METER 2022-05-03 09:23:00 Milad Mendez [facility] CBC W/PLT COUNT & AUTO 2022-05-03 09:17:00 Kelle Velazco [facility] DIFFERENTIAL Center PROTHROMBIN TIME/INR 2022-05-03 09:17:00 Kelle Velazco [facility] CBC W/PLT COUNT & AUTO 2022-05-03 09:17:00 Kelle Velazco [facility] DIFFERENTIAL Center CULTURE, 2022-01-13 13:03:54 [facility] URINE/SENSITIVITY ON ALL Medicin e CYTOLOGY, URINE 2022-01-13 13:03:54 [facility] Medicine POCT URINALYSIS DIPSTICK 2022-01-13 00:00:00 Chris Lazaro [facility] POCT URINALYSIS DIPSTICK 2022-01-13 00:00:00 [facility] POCT-GLUCOSE METER 2022-01-05 11:47:00 Andrew Neil [facility] BASIC METABOLIC PANEL 2022-01-05 04:12:00 [facility] CBC W/PLT COUNT & AUTO 2022-01-05 04:12:00 Salvador [facility] DIFFERENTIAL [facility] CBC W/PLT COUNT & AUTO 2022-01-05 04:12:00 Latesha [facility]ENTIAL [facility] [place] URINE CULTURE 2022-01-04 20:26:00 Andrew Neil [facility] GRAM STAIN 2022-01-04 20:26:00 Andrew Neil Talib [facility] IR PERCUTANEOUS 2022-01-04 18:44:00 Andrew Neil [facility] NEPHROSTOMY TUBE Center PLACEMENT BASIC METABOLIC PANEL 2022-01-04 04:04:00 Latesha [facility] CBC W/PLT COUNT & AUTO 2022-01-04 04:04:00 Omarballad health [facility] DIFFERENTIAL [facility] [place] CBC W/PLT COUNT & AUTO 2022-01-04 04:04:00 Omarballad health [facility] DIFFERENTIAL [facility]endu [place] URINALYSIS W/ REFLEX 2022-01-03 23:04:00 [facility] URINE CULTURE Center COMPREHENSIVE METABOLIC 2022-01-03 22:44:00 [facility] PANEL Center CBC W/PLT COUNT & AUTO 2022-01-03 22:44:00 [facility] PT/APTT 2022-01-03 22:44:00 [facility] PROTHROMBIN TIME/INR 2022-01-03 22:44:00 [facility] CBC W/PLT COUNT & AUTO 2022-01-03 22:44:00 [facility] DIFFERENTIAL Center MRI BRAIN WO CONTRAST 2021-07-09 19:50:00 [facility] destruction [facility] Hernia repair [facility] Plan of Care Planned Activity Planned Date [...] (3 - Td or Tdap)] Future Scheduled 2022-11-15 SHINGLES VACCINES (1 Met hodist Test 12:14:06 of 2) [code = Hospital SHINGLES VACCINES (1 of 2)] Future Scheduled 2022-11-15 65+ PNEUMOCOCCAL Methodi st Test 12:14:06 VACCINE (2 - PCV) Hospital [code = 65+ PNEUMOCOCCAL VACCINE (2 - PCV)] Future Scheduled 2022-11-15 COVID-19 VACCINE (4 Meth odist Test 12:14:06 - Booster for Hospital Moderna series) [code = COVID-19 VACCINE (4 - Booster for Moderna series)] Future Scheduled 2022-11-15 INFLUENZA VACCINE Method ist Test 12:14:06 [code = INFLUENZA Hospital VACCINE] Future Scheduled 2022-09-[address] [facility] Test 00:00:00 (12+) [code = [facility] Center DEPRESSION SCREENING (12+)] Future Scheduled 2022-09-12 FALLS RISK SCREENING [facility] Test 00:00:00 [code = FALLS RISK Medical C enter SCREENING] Future Scheduled 2022-07-15 HEPATITIS B VACCINES Met [...] [facility] 00:[facility]00 (#1) [code = [facility] Center INFLUENZA VACCINE (#1)] Future Scheduled 2022-05-[address] [facility] Test 00:00:00 (#1) [code = [facility] Center INFLUENZA VACCINE (#1)] Future Scheduled 2022-05-13 [...] Hospital VACCINE] Future Scheduled 2022-01-13 CULTURE, Ordered: [facility] Юлия ege of Test 13:03:54 URINE/SENSITIVITY ON 01/13/2022 Medicin e ALL [code = 26670-4] Future Scheduled 2022-01-13 CULTURE, Ordered: [facility] Юлия ege of Test 13:03:54 URINE/SENSITIVITY ON 01/13/2022 Medicin e ALL [code = 65375-8] Future Scheduled 2022-01-13 CYTOLOGY, URINE Ordered: [facility] C ollege of Test 13:03:54 [code = 16141] 01/13/2022 Medicine Future Scheduled 2022-01-13 CYTOLOGY, URINE Ordered: [facility] C ollege of Test 13:03:54 [code = 39112] 01/13/2022 Medicine Future Scheduled 2022-01-13 BMI FOLLOW UP PLAN [facility] of Test 12:47:39 [code = BMI FOLLOW Medicine UP PLAN] Future Scheduled 2022-01-13 ZOSTER VACCINE (1 of [facility] of Test 12:47:39 2) [code = ZOSTER Medicine VACCINE (1 of 2)] Future Scheduled 2022-01-13 MEDICARE AWV [facility] Юлия ege of Test 12:47:39 (Initial) [code = Medicine MEDICARE AWV (Initial)] Future Scheduled 2022-01-13 Pneumococcal 65+ (1 [place] of Test 12:47:39 of 1 - PPSV23) [code Medicin e = Pneumococcal 65+ (1 of 1 - PPSV23)] Future Scheduled 2022-01-13 FLU VACCINE > 6 [facility] ollege of Test 12:47:39 MONTHS [code = FLU Medicine VACCINE > 6 MONTHS] Future Scheduled 2022-01-13 FALL SCREEN [code = [employer] of Test 12:47:39 FALL SCREEN] Medicine Future Scheduled 2022-01-13 TETANUS SHOT (ADULT) [facility] of Test 12:47:39 [code = TETANUS SHOT [...] = Tobacco Cessation Counseling and Screening (12+)] Future Scheduled [address] [facility] Test 00:00:00 [facility]ing [facility] Cent[facility] r Screening (12+) [code = Tobacco Cessation Counseling and Screening (12+)] Encounters Start End Encounter Admission Attending Care Care Encounter Source Date/Time Date/Time Type Type Clinicians Facility Department ID 2022-11-04 Outpatient ETHAN Schultz [facility] [id number] Common 16:23:03 Danny [id number] [facility] 2022-09-01 Outpatient Antoine, STLMLC STLMLC [id number] Common 13:01:02 Danny [id number] [facility] 2022-01-27 Outpatient AMBIKA LAZARO, SLE Surgery [id number] SLE 08:47:36 CHRIS 2021-07-12 Emergency [facility] [id number] Univers 15:28:30 ity [facility] 2022-10-14 2022-10-14 (TEL) STLMLC STLMLC [id number] Co mmon 00:00:00 00:00:00 [facility] 2022-10-13 2022-10-13 OFFICE STLMLC STLMLC [id number] Co mmon 00:00:00 00:00:00 VISIT Spirit ESTAB PT - [facility] LEVEL 2 [facility] 2022-10-06 2022-10-06 (PROC) STLMLC STLMLC [id number] Co mmon 00:00:00 00:00:00 Procedure Spir it [facility] 2022-09-29 2022-09-29 (PROC) STLMLC STLMLC [id number] Co mmon 00:00:00 00:00:00 Procedure Spir it [facility] 2022-09-19 2022-09-19 (TEL) STLMLC STLMLC [id number] Co mmon 00:00:00 00:00:00 [facility] 2022-09-15 2022-09-15 (PROC) STLMLC STLMLC [id number] Co mmon 00:00:00 00:00:00 Procedure Spir it [facility] 2022-09-08 2022-09-08 (PROC) STLMLC STLMLC [id number] Co mmon 00:00:00 00:00:00 Procedure Spir it [facility] 2022-09-01 2022-09-01 OFFICE STLMLC STLMLC [id number] Co mmon 00:00:00 00:00:00 VISIT EST Spir it PT LEVEL 3 [facility] 2022-07-12 2022-07-12 Refill Reba, 1.2.840.1 [id number] Methodi 00:00:00 00:00:[address] [facility] 3.430.2.7 Hospit a .3.751740 l .8 2022-07-12 2022-07-12 Refill Reba, 1.2.840.1 [id number] Methodi 00:00:00 00:00:[address] [facility] 3.430.2.7 Hospit a .3.982335 l .8 2022-06-01 2022-06-01 [id number] Univers 18:40:00 19:08:11 [facility] 2022-06-01 2022-06-01 Urgent Fuad Lam [facility] 1.2.840.114 [id number] Univers 18:40:00 19:08:11 Jose Angel [facility] 350.1.13.10 [facility] 4.2.7.2.686 Too as SONIDO?BLEA [id number] [address] MEDICAL OFFICE BUILDING 2022-05-03 2022-05-03 Outpatient [facility]BIKA [facility] [id number] [facility] 14:56:33 23:59:00 [place] 2022-05-03 2022-05-03 [id number] 08:00:00 23:59:00 Encounter [facility] 2022-05-03 2022-05-03 [facility] [id number] 08:00:00 23:59:00 Encounter [facility] 2022-05-03 2022-05-03 [facility] [id number] 06:36:00 10:35:00 Encounter [facility] 2022-05-03 2022-05-03 [facility] AMBIKA Mendez [facility] [id number] 06:36:00 10:35:00 Encounter [facility] 2022-05-032022-05-03 Outpatient EL VANESSA, SLE Surgery [id number] SLE 06:36:00 10:35:00 [place] 2022-05-03 2022-05-03 Surgery [facility] [id number] 07:30:00 08:00:00 [facility] 2022-05-03 2022-05-03 Surgery Jose Francisco, [facility] [id number] 07:30:00 08:00:00 [facility] 2022-05-03 2022-05-03 [facility] [id number] 00:00:00 00:00:00 Only [facility] 2022-05-03 2022-05-03 Travel [facility] [id number] [facility] 00:[facility]00 00:00:00 [facility] 2022-05-03 2022-05-03 Orders Aleksandra [facility] [id number] 00:00:00 00:00:00 Only [facility] 2022-05-03 2022-05-03 Travel [facility] [id number] [facility] 00:[facility]00 00:00:00 [facility] 2022-04-21 2022-04-21 Outside [facility] [id number] 00:00:00 00:00:00 Orders [facility] 2022-04-21 2022-04-21 [facility] [id number] 00:00:00 00:00:00 Orders [facility] 2022-01-13 2022-01-13 Office HALIMA LAZARO 1.2.840.[id number] [place] [address] 11:15:18 11:15:18 Visit CHRIS AMBULATOR 350.1.13.21 College Y 0.2.7.2.686 of [id number] Medi jasper 300 e 2022-01-12 2022-01-12 Ambulatory nullFlavo [facility] [id number] Memoria 20:30:00 20:30:00 Pre-Reg r Urology 01 l Yazan Dorsey nn Time Share 2022-01-12 2022-01-12 Ambulatory nullFlavo [facility] [id number] Memoria 20:30:00 20:30:00 Pre-Reg r Urology 01 brant Dorsey nn Time Share 2022-01-12 2022-01-12 Outpatient VALERIA GIGIMAGALI [id number] Memoria 15:30:00 15:30:00 01 brant Yoo 2022-01-12 2022-01-12 Outpatient Angélicajulianna [facility] [id number] 15:30:00 15:30:00 Jazzy L 01 2022-01-03 2022-01-05 [facility] [id number] 20[facility]21:00 15:56:00 [facility] 2022-01-03 2022-01-05 [facility] [id number] 20:21:00 15:56:00 Encounter [facility] 2022-01-03 2022-01-05 Inpatient ER [facility] [id number] SLE 20:21:00 15:56:00 2022-01-03 2022-01-03 Travel [facility] [id number] [facility] 00:00:00 00:00:00 [facility] 2022-01-03 2022-01-03 Travel [facility] [id number] [facility] 00:00:00 00:00:00 [facility] 2021-12-21 2021-12-22 Outpatient nullFlavo [facility] 41 [id number] Memoria 18:35:00 04:59:59 r Specialty 00 l [facility] 2021-12-21 2021-12-22 Outpatient nullFlavo [facility] 41 [id number] Memoria 18:35:00 04:59:59 r Specialty 00 l [facility] 2021-12-21 2021-12-21 Outpatient Justin [facility] [id number] 13:35:00 23:59:59 Jazzy L 00 2021-12-21 2021-12-21 Outpatient MHIE MHIE [id number] Memoria 13:35:00 13:35:00 00 l Fredo 2021-12-21 2021-12-21 Telephone Luís [facility] 1.2.840.114 [id number] Univers 00:00:00 00:00:00 [facility] 350.1.13.10 ity of [place] 4.2.7.2.686 Too as SONIDO?BLEA [phone] Ky dical KNEY 092 [facility] OFFICE [facility] 2021-12-12 2021-12-13 Observatio nullFlavo [facility] [id number] Memoria 21:21:00 01:15:00 n brandon Fredo 92 l [facility] 2021-12-12 2021-12-13 Observatio nullFlavo [facility] [id number] Memoria 21:21:00 01:15:00 n brandon Yoo 92 l [facility] 2021-12-12 2021-12-12 Outpatient Ajibade, MHPL PL [id number] 16:21:00 20:15:00 Zach 92 [facility] 2021-12-02 2021-12-02 Outpatient Brandon MEANS [facility] [id number] Univers 13:00:00 13:45:36 BREANNA ewing [facility] 2021-12-02 2021-12-02 Ancillary Saul Weinberg [facility] 1.2.840. 114 [id number] Univers 13:00:00 13:45:36 Visit Breanna Means 350.1.13.10 [place] [id number] [place] dical NAL 179 [facility] 2021-11-27 2021-11-27 Ancillary Lorri Weinberg [facility] 1.2.840 .114 [id number] Univers 13:00:00 13:40:39 Visit Breanna Means 350.1.13.10 [facility] [place] [id number] [place] dical NAL 179 [facility] 2021-11-25 2021-11-25 Ancillary Lorri Weinberg [facility] 1.2.840 .114 [id number] Univers 08:00:00 08:45:00 Visit Breanna Means 350.1.13.10 [facility]y [facility] [place] [id number] [place] dical NAL 179 [facility] 2021-11-19 2021-11-19 Ancillary Elena Jaffe [facility] 1.2.84 0.114 [id number] Univers 13:00:00 13:52:36 Visit Breanna Means 350.1.13.10 ity [facility] [place] [phone] [place] dical NAL [address] [facility] 2021-11-09 2021-11-09 Orders Doctor SAM 1.2.840.114 [id number] Univers 00:00:00 00:00:00 Only Unassigned, ROSI 350.1.13.10 ity of [place] [facility] 4.2.7.2.686 Too as [id number] [address] 2021-09-13 2021-09-13 Outpatient R [facility] [id number] Univers 14:45:00 14:45:00 ity of [facility] 2021-07-24 2021-07-24 Manuela Staley [facility] 1.2.840.114 [id number] Univers 00:00:00 00:00:00 Jason SEPULVEDA 350.1.13.10 ity of [place] [phone] [place] dical NAL 092 [facility] 2021-07-09 2021-07-09 Hospital Reba 1.2.840.1 [id number] Methodi 13:19:33 23:59:00 Encounter Dewayne 44854.1.1 444 [facility] 3.430.2.7 Hospit a .3.729050 l .8 2021-07-09 2021-07-09 Travel 1.2.840.1 1.2.712.167 [id number] Methodi 00:00:00 00:00:[address] 3.430.2.7 0.2.7.3.698 Ho spita .3.719834 084.8 l .8 2021-07-07 2021-07-07 Office Reba, 1.2.840.1 [id number] Methodi 13:15:00 16:08:39 Visit Dewayne 62910.1.[address] [facility] 3.430.2.7 Hospit a .3.882787 l .8 2021-07-07 2021-07-07 Travel 1.2.840.1 1.2.274.163 [id number] Methodi 00:00:00 00:00:[address] 3.430.2.7 0.2.7.3.698 Ho spita .3.883010 084.8 l .8 2021-06-15 2021-06-15 Telephone Luís WVKUNAL 1.2.840.114 [id number] [facility] 00:00:00 00:00:00 [facility] 350.1.13.10 [facility] 4.2.7.2.686 Too as Sonido?Blea [id number] [address] Office [facility] 2021-06-12 2021-06-12 Travel 1.2.840.1 1.2.227.160 [id number] Methodi 00:00:00 00:00:[address] 3.430.2.7 0.2.7.3.698 Ho spita .3.560398 084.8 l .8 2021-06-11 2021-06-11 Telephone Reba, 1.2.840.1 [id number] Methodi 00:00:00 00:00:[address] [facility] 3.430.2.7 Hospit a .3.699406 l .8 2021-05-20 2021-05-20 Imm/Inj Nurse, Adc Pob Immunization [facility] 1.2.840.114 [id number] Univers 13:10:10 13:10:33 Visit Anuel Galarza 350.1.13 .10 it[place] of [place] [phone] [place] dical nal 421 [facility] 2021-05-20 2021-05-20 Outpatient R MICHELLE [facility] [id number] Univers 13:10:00 13:10:00 ANUEL ewing [facility] 2021-01-29 2021-01-29 Outpatient R CLARY [facility] [id number] Univers 14:00:00 14:00:00 BREANNA ashtyn [facility] 2021-01-23 2021-01-23 Orders Doctor SAM 1.2.840.114 [id number] Univers 00:00:00 00:00:00 Only Unassigned, ROSI 350.1.13.10 ity of [place] [facility] 4.2.7.2.686 Too as [id number] [address] 2021-01-21 2021-01-21 Ancillary Lorri Weinberg [facility] 1.2.840 .114 [id number] Univers 14:01:28 14:41:28 Visit Breanna Means 350.1.13.10 ity of [place] [phone] Ky dical nal 179 [facility] 2021-01-21 2021-01-21 Telephone Luís [facility] 1.2.840.114 [id number] Univers 00:00:00 00:00:00 Jason Sepulveda 350.1.13.10 ity of [place] [phone] Ky dical nal 092 [facility] 2021-01-19 2021-01-19 Ancillary Varsha Bey [facility] 1.2.840. 114 [id number] Univers 14:00:13 14:41:16 Visit Breanna Means 350.1.13.10 it[place] of [place] [phone] Ky dical nal 179 [facility] 2021-01-12 2021-01-12 Ancillary Samantha Brantley [facility] 1.2.840. 114 [id number] Univers 11:08:23 11:48:23 Visit Breanna Means 350.1.13.10 [place] of [place] [phone] [place] dical nal 179 [facility] 2021-01-06 2021-01-06 Emergency Rodriguez, [facility] 1.2.357.718 [id number] Univers 08:31:00 13:37:00 Ricco Sepulveda 350.1.13.10 i [place] [phone] [facility] [address] 2021-01-06 2021-01-06 Orders Doctor SAM 1.2.840.114 [id number] Univers 00:00:00 00:00:00 Only Unassigned, ROSI 350.1.13.10 ity of [place] [facility] 4.2.7.2.686 Too as [phone] [facility] [address] 2021-01-01 2021-01-01 Ancillary Varsha Bey [facility] 1.2.840. 114 [id number] Univers 15:17:58 16:03:58 Visit Breanna Means 350.1.13.10 [phone] [place] [address] [facility] 2020-12-30 2020-12-30 Ancillary Varsha Bey [facility] 1.2.840. 114 [id number] Univers 15:11:48 16:47:07 Visit Breanna Means 350.1.13.10 [phone] [place] [address] [facility] 2020-12-25 2020-12-26 Ancillary Varsha Bey [facility] 1.2.840. 114 [id number] [facility] 15:13:25 08:42:39 Visit Breanna Means 350.1.13.10 [phone] [place] [address] [facility] 2020-12-23 2020-12-23 Ancillary Shirley Banks [facility] 1 .2.840.114 [id number] [facility] 11:09:48 12:04:08 Visit Breanna Means 350.1.13.10 [place] [phone] [place] d[place] 179 [facility] 2020-12-18 2020-12-18 Ancillary Shirley Banks [facility] 1 .2.840.114 [id number] [facility] 09:53:00 10:42:16 Visit Breanna Means 350.1.13.10 it[place] [phone] [place] d[place] 179 [facility] 2020-12-18 2020-12-18 Outpatient R CLARY [facility] [id number] [facility] 10:20:00 10:20:00 BREANNA ewing [facility] 2020-12-18 2020-12-18 Orders Doctor SAM 1.2.840.114 [id number] Univers 00:00:00 00:00:00 Only Unassigned, ROSI 350.1.13.10 ity of [place] [facility] 4.2.7.2.686 Too as [phone] [address] 2020-12-10 2020-12-10 Telephone [facility] 1.2.455.607 [id number] Univers 00:00:00 00:00:00 Brendan Sepulveda 350.1.13.10 it[place] [phone] [place] dical [place]al 059 [facility] 2020-12-08 2020-12-08 Orders Doctor SAM 1.2.840.114 [id number] Univers 00:00:00 00:00:00 Only Unassigned, ROSI 350.1.13.10 ity of [facility] 4.2.7.2.686 Too as [phone] [address] 2020-12-04 2020-12-04 Telephone Luís [facility] 1.2.840.114 [id number] Univers 00:00:00 00:00:00 Jason Jeffry Sepulveda 350.1.13.10 it[place] [phone] [address] 2020-11-24 2020-11-24 Office [facility] 1.2.840.114 [id number] Univers 15:26:22 16:30:45 Visit Jason Jeffry Sepulveda 350.1.13.10 it[place] [phone] [address] 2020-11-24 2020-11-24 Outpatient JASON PARIS [facility] [id number] Univers 15:40:00 15:40:00 JASON STALEY [facility] 2020-11-20 2020-11-20 Outpatient JASON PARIS [facility] [id number] Univers 13:00:00 13:00:00 JASON STALEY [facility] 2020-11-04 2020-11-04 Office Luís [facility] 1.2.840.114 [id number] Univers 15:59:56 17:20:37 Visit Jason Sepulveda 350.1.13.10 it[place] [phone] [address] 2020-11-04 2020-11-04 Outpatient JASON PARIS [facility] [id number] Univers 16:00:00 16:00:00 JASON STALEY [facility] 2020-10-15 2020-10-15 Outpatient Brandon JENKINS [facility] [id number] Univers 11:10:00 11:10:00 ASTRID ashtyn [facility] 2020-10-10 2020-10-10 Office [facility] 1.2.840.114 [id number] Univers 10:45:46 14:13:12 Visit Jason Sepulveda 350.1.13.10 it[place] [phone] [place] dical nal 092 [facility] 2020-10-10 2020-10-10 Outpatient Brandon POONJASON Castañeda [facility] [id number] Univers 11:00:00 11:00:00 JASON STALEY [facility] 2020-10-08 2020-10-08 [facility] 1.2.391.853 [id number] Univers 09:48:22 23:59:00 Encounter Jason Gene SPECIALTY 350.1.13.10 it[place] [phone] Ky dical FROILANAshtyn [address] [place] [address] 2020-10-08 2020-10-08 Outpatient Brandon POONJASON Castañeda [facility] [id number] Univers 10:00:00 10:00:00 JASON STALEY [facility] 2020-10-08 2020-10-08 [facility] 1.2.521.975 [id number] Univers 09:47:36 09:47:36 Encounter Jason Gene SPECIALTY 350.1.13.10 it[place] [phone] Ky dical VICTORAshtyn [address] [place] [address] 2020-10-08 2020-10-08 [facility] 1.2.815.762 [id number] Univers 09:46:50 09:46:50 Encounter Jason Gene SPECIALTY 350.1.13.10 it[place] [phone] Ky dical FROILANY [address] [place] [address] 2020-09-30 2020-09-30 [facility] 1.2.840.114 [id number] Univers 00:00:00 00:00:00 Jason Sepulveda 350.1.13.10 it[place] [phone] [place] dical nal 092 [facility] 2020-09-19 2020-09-19 Office Luís [facility] 1.2.840.114 [id number] Univers 14:31:34 15:40:16 Visit Jason Sepulveda 350.1.13.10 it[place] [phone] [place] dical nal 092 [facility] 2020-09-19 2020-09-19 Outpatient R JASON STALEY [facility] [id number] Univers 14:40:00 14:40:00 JASON STALEY [facility] 2020-09-17 2020-09-17 Outpatient Brandon JENKINS [facility] [id number] Univers 10:50:00 10:50:00 ASTRID [facility] 2020-09-17 2020-09-17 Ref[facility]ather [facility] 1.2.840.114 [id number] Univers 00:00:00 00:00:00 Brendan Sepulveda 350.1.13.10 it[place] of [place] [phone] [place] dicnm nal 059 [facility] 2020-09-15 2020-09-15 Orders Doctor SAM 1.2.840.114 [id number] Univers 00:00:00 00:00:00 Only Unassigned, ROSI 350.1.13.10 ity of [place] [facility] 4.2.7.2.686 Too as [phone] [address] 2020-09-10 2020-09-10 Telephone Luís [facility] 1.2.840.114 [id number] Univers 00:00:00 00:00:00 Jason Sepulveda 350.1.13.10 it[place] [phone] [place] dical nal 092 [facility] 2020-09-09 2020-09-09 Lead Custodian 2, Adc Lab [facility] 1.2.840.114 [id number] Univers 10:13:23 10:28:23 Visit Jason [place] 350.1.13 .10 it[place] of [place] [phone] [place] dical nal 353 [facility] 2020-09-09 2020-09-09 Outpatient JASON PARIS [facility] [id number] Univers 10:15:00 10:15:00 JASON STALEY itashtyn [facility] 2020-09-08 2020-09-08 Office Luís [facility] 1.2.840.114 [id number] Univers 11:02:00 12:00:27 Visit Jason [place] 350.1.13.10 it[place] of [place] [phone] [place] dical nal 092 [facility] 2020-09-08 2020-09-08 Outpatient R JASON STALEY [facility] [id number] Univers 11:00:00 11:00:00 JASON STALEY [facility] 2020-08-28 2020-08-28 [facility] 1.2.840.114 [id number] Univers 00:00:00 00:00:00 Brendan Sepulveda 350.1.13.10 it[place] of [place] [phone] [place] dical nal 059 [facility] 2020-08-20 2020-08-20 Ancillary Lenard Saul Nguyen [facility] .2.840. 114 [id number] Univers 14:56:11 15:36:11 Visit Breanna Means 350.1.13.10 it[place] of [place] [phone] [place] dical nal 179 [facility] 2020-08-20 2020-08-20 Outpatient Brandon MEANS [facility] [id number] Univers 15:00:00 15:00:00 BREANNA ewing [facility] 2020-08-06 2020-08-06 Telephone [facility] .2.840.114 [id number] Univers 00:00:00 00:00:00 Jason Sepulveda 350.1.13.10 it[place] of [place] [phone] [place] dical nal 092 [facility] 2020-08-06 2020-08-06 Orders Doctor SAM 1.2.840.114 [id number] Univers 00:00:00 00:00:00 Only Unassigned, ROSI 350.1.13.10 ity of [place] [facility] 4.2.7.2.686 Too as [phone] [address] 2020-08-05 2020-08-05 Ancillary Saul Weinberg [facility] 1.2.840. 114 [id number] Univers 16:31:08 17:11:08 Visit Breanna Means 350.1.13.10 it[place] [phone] [place] dical nal 179 [facility] 2020-07-29 2020-07-29 Ancillary Saul Weinbegr [facility] 1.2.840. 114 [id number] Univers 15:31:18 16:11:18 Visit Breanna Means 350.1.13.10 it[place] of [place] [phone] [place] dicnm nal 179 [facility] 2020-07-28 2020-07-28 Outpatient Brandon HALL, [facility] [id number] Univers 11:20:00 11:20:00 BRENDAN ewing o f [facility] 2020-07-23 2020-07-23 Orders Doctor SAM 1.2.840.114 [id number] Univers 00:00:00 00:00:00 Only Unassigned, ROSI 350.1.13.10 ity of [place] [facility] 4.2.7.2.686 Too as [phone] [address] 2020-07-22 2020-07-22 Ancillary Saul Weinberg [facility] 1.2.840. 114 [id number] Univers 14:59:34 15:39:34 Visit Breanna Means 350.1.13.10 it[place] [phone] [place] dical nal 179 [facility] 2020-07-15 2020-07-15 Ancillary Lorri Weinberg [facility] 1.2.840 .114 [id number] Univers 14:30:20 15:10:20 Visit Breanna Means 350.1.13.10 it[place] of [place] [phone] [place] dical nal 179 [facility] 2020-07-15 2020-07-15 [facility] [id number] Univers 14:40:00 14:40:00 BREANNA ity of [facility] 2020-07-11 2020-07-11 Refill Rafael [facility] 1.2.840.114 [id number] Univers 00:00:00 00:00:00 Brendan Sepulveda 350.1.13.10 [place] [phone] [place] dical nal 059 [facility] 2020-07-10 2020-07-10 Ancillary Shirley Banks [facility] 1 .2.840.114 [id number] Univers 13:40:27 14:20:27 Visit Breanna Means 350.1.13.10 it[place] [phone] [place] dical nal 179 [facility] 2020-07-09 2020-07-09 Ancillary Samantha Brantley [facility] 1.2.840. 114 [id number] Univers 10:32:38 11:12:38 Visit Breanna Means 350.1.13.10 it[place] [phone] [place] dical nal 179 [facility] 2020-07-09 2020-07-09 Outpatient R [facility] [id number] Univers 10:40:00 10:40:00 ity of [facility] 2020-07-04 2020-07-04 Ancillary Jagdeep Elizabeth Shirley [facility] 1 .2.840.114 [id number] Univers 11:16:46 11:56:46 Visit Breanna eMans 350.1.13.10 it[place] of [place] [phone] [place] dical nal 179 [facility] 2020-06-26 2020-06-26 Ancillary Lorri Weinberg [facility] 1.2.840 .114 [id number] Univers 12:03:21 12:43:21 Visit Breanna Means 350.1.13.10 it[place] [phone] [place] dical nal 179 [facility] 2020-06-26 2020-06-26 Refheather Hall [facility] 1.2.840.114 [id number] Univers 00:00:00 00:00:00 Brendan Sepulveda 350.1.13.10 [place] [phone] [place] dical nal 059 [facility] 2020-06-24 2020-06-24 Ancillary Varsha Bey [facility] 1.2.840. 114 [id number] Univers 11:37:06 12:17:06 Visit Breanna Means 350.1.13.10 it[place] [phone] [place] dical nal 179 [facility] 2020-06-19 2020-06-19 Ancillary Shirley Banks [facility] 1 .2.840.114 [id number] Univers 11:29:43 14:07:55 Visit Breanna Means 350.1.13.10 it[place] [phone] [place] dical nal 179 [facility] 2020-06-19 2020-06-19 Outpatient R [facility] [id number] Univers 11:20:00 11:20:00 ity of [facility] 2020-06-17 2020-06-17 Ancillary Varsha Bey [facility] 1.2.840. 114 [id number] Univers 11:24:28 12:04:28 Visit Breanna Means 350.1.13.10 it[place] [phone] [place] dical nal 179 [facility] 2020-06-13 2020-06-13 Orders Doctor SAM 1.2.840.114 [id number] Univers 00:00:00 00:00:00 Only Unassigned, ROSI 350.1.13.10 ity of [place] [facility] 4.2.7.2.686 Too as [phone] [facility] [address] [place] 2020-06-11 2020-06-11 Ancillary Jagdeep Shirley Elizabeth [facility] 1 .2.840.114 [id number] Univers 14:07:48 16:06:14 Visit Breanna Means 350.1.13.10 it[place] [phone] [place] dicnm nal 179 [facility] 2020-06-11 2020-06-11 [facility] [id number] Univers 14:20:00 14:20:00 BREANNA ity [facility] 2020-05-05 2020-05-05 Telephone Rafael [facility] 1.2.753.981 [id number] Univers 00:00:00 00:00:00 Brendan Sepulveda 350.1.13.10 [place] [phone] [place] dicnm nal 059 [facility] 2020-05-03 2020-05-03 Nurse SAM Figueredo 1.2.840.114 [id number] Univers 00:00:00 00:00:00 Triage Amie ARANDA 350.1.13.10 it y of HOSPITAL 4.2.7.2.686 Too as [phone] [facility] [address] [place] 2020-04-10 2020-04-10 Ancillary Jagdeep Shirley Elizabeth [facility] 1 .2.840.114 [id number] Univers 15:27:41 16:07:41 Visit Breanna Means 350.1.13.10 it[place] [phone] [place] dical nal 179 [facility] 2020-04-08 2020-04-08 Ancillary Lorri Weinberg [facility] 1.2.840 .114 [id number] Univers 15:29:47 16:09:47 Visit Breanna Means 350.1.13.10 it[place] [phone] [place] dical nal 179 [facility] 2020-04-04 2020-04-04 Ancillary Lorri Weinberg [facility] 1.2.840 .114 [id number] Univers 14:18:04 14:58:04 Visit Breanna Means 350.1.13.10 it[place] of [place] [phone] [place] dical nal 179 [facility] 2020-04-03 2020-04-03 Manuela Hall [facility] 1.2.840.114 [id number] Univers 00:00:00 00:00:00 Brendan Sepulveda 350.1.13.10 it[place] of [place] [phone] [place] dical nal 059 [facility] 2020-04-02 2020-04-02 Ancillary Lorri Weinberg [facility] 1.2.840 .114 [id number] Univers 14:59:32 15:39:32 Visit Breanna Means 350.1.13.10 it[place] of [place] [phone] [place] dical nal 179 [facility] 2020-03-26 2020-03-26 Sg Staley [facility] 1.2.840.114 [id number] Univers 00:00:00 00:00:00 Jason Sepulveda 350.1.13.10 it[place] of [place] [phone] [place] dical nal 092 [facility] 2020-03-20 2020-03-20 Ancillary Saul Weinberg [facility] 1.2.840. 114 [id number] Univers 15:27:33 16:07:33 Visit Breanna Means 350.1.13.10 it[place] of [place] [phone] [place] dical nal 179 [facility] 2020-03-13 2020-03-13 Outpatient R [facility] [id number] Univers 15:40:00 15:40:00 ity of [facility] 2020-03-11 2020-03-11 Ancillary Lenard Saul Nguyen [facility] 1.2.840. 114 [id number] Univers 15:30:10 16:10:10 Visit Breanna Means 350.1.13.10 it[place] of [place] [phone] [place] dical nal 179 [facility] 2020-03-06 2020-03-06 Ancillary Lorri Weinberg [facility] 1.2.840 .114 [id number] Univers 15:36:47 16:16:47 Visit Breanna Means 350.1.13.10 it[place] of [place]2.[place] [phone] [place] dical nal 179 [facility] 2020-03-03 2020-03-03 Ancillary Lenard Saul Patrick [facility] 1.2.840. 114 [id number] Univers 15:41:05 16:21:05 Visit Breanna Means 350.1.13.10 it[place] of [place] [phone] [place] dical nal 179 [facility] 2020-02-27 2020-02-28 Ancillary Lenard Saul Patrick [facility] 1.2.840. 114 [id number] Univers 14:57:04 13:44:25 Visit Breanna Means 350.1.13.10 it[place] of [place]2.[place] [phone] [place] dical nal 179 [facility] 2020-02-21 2020-02-21 Ancillary Lenard Saul Patrick [facility] 1.2.840. 114 [id number] Univers 14:15:09 14:55:09 Visit Breanna Means 350.1.13.10 ity of [place] [phone] Ky dical nal 179 [facility] 2020-02-18 2020-02-18 Ancillary Saul Weinberg [facility] 1.2.840. 114 [id number] Univers 14:10:56 14:50:56 Visit Breanna Means 350.1.13.10 it[place] of [place]2.[place] [phone] [place] dical nal 179 [facility] 2020-02-13 2020-02-13 Ancillary Shirley Banks [facility] 1 .2.840.114 [id number] Univers 13:40:00 14:24:13 Visit Breanna Means 350.1.13.10 it[place] of [place] [phone] [place] dical nal 179 [facility] 2020-02-11 2020-02-11 Outpatient R CLARY [facility] [id number] [facility] 15:20:00 15:20:00 BREANNA ity of [facility] 2020-02-08 2020-02-08 Ancillary Shirley Banks [facility] 1 .2.840.114 [id number] Univers 13:04:37 14:04:37 Visit Breanna Means 350.1.13.10 it[place] of [place] [phone] [place] dical nal 179 [facility] 2020-02-06 2020-02-06 Ancillary Lorri Weinberg [facility] 1.2.840 .114 [id number] Univers 13:02:54 14:02:54 Visit Breanna Means 350.1.13.10 it[place] of [place] [phone] [place] dical nal 179 [facility] 2020-02-06 2020-02-06 Telephone Clary [facility] 1.2.840.114 [id number] Univers 00:00:00 00:00:00 Breanna [facility] 350.1.13.10 it y of Surgical 4.2.7.2.686 Too as Specialti [phone] Ky dical es 198 [facility] 2020-02-05 2020-02-05 Telephone Rafael [facility] 1.2.076.388 [id number] Univers 00:00:00 00:00:00 Brendan [place] 350.1.13.10 it[place] [phone] [place] dical nal 059 [facility] 2020-01-31 2020-01-31 Office Clary [facility] 1.2.448.810 [id number] Univers 13:13:50 14:01:29 Visit Breanna Vitale [facility] 350.1.13.10 it y of Surgical 4.2.7.2.686 Too as Specialti [phone] Ky dical es 198 [facility] 2020-01-31 2020-01-31 [facility] 1.2.840.114 [id number] Univers 08:43:00 08:43:00 Encounter Chris [place] 350.1.13.10 [place] [phone] [address] 2020-01-31 2020-01-31 [facility] 1.2.840.114 [id number] Univers 08:43:00 08:43:00 Encounter Chris [place] 350.1.13.10 [place] [phone] [address] 2020-01-31 2020-01-31 Outpatient [facility] [id number] Univers 08:42:11 08:42:00 CHRIS ity of [facility] 2020-01-31 2020-01-31 [facility] 1.2.840.114 [id number] Univers 08:42:00 08:42:00 Encounter Chris [place] 350.1.13.10 it[place] of [place] [phone] [address] 2020-01-31 2020-01-31 [facility] 1.2.840.114 [id number] Univers 08:42:00 08:42:00 Encounter Chris [place] 350.1.13.10 [place] [phone] [address] 2020-01-31 2020-01-31 Telephone [facility] 1.2.165.333 [id number] Univers 00:00:00 00:00:00 Gene McgeeLeatha Sepulveda 350.1.13.10 ity of [place] [phone] [place] dical nal 059 [facility] 2020-01-29 2020-01-29 Ancillary Jagdeep Shirley Elizabeth [facility] 1 .2.840.114 [id number] Univers 13:41:12 14:41:12 Visit Breanna Means 350.1.13.10 ity of [place] [phone] [place] dical nal 179 [facility] 2020-01-29 2020-01-29 Outpatient R CLARY [facility] [id number] Univers 13:00:00 13:00:00 BREANNA ewing [facility] 2020-01-21 2020-01-21 [facility] [id number] Univers 11:40:00 11:40:00 BRENDAN ewing o f [facility] 2020-01-21 2020-01-21 Telemedici [facility] 1.2.840.114 [id number] Univers 08:09:01 08:29:01 ne Visit Brendan Sepulveda 350.1.13.10 it[place] [phone] [place] dical nal 059 [facility] 2020-01-18 2020-01-18 Office [facility] 1.2.840.114 [id number] Univers 09:02:21 09:34:47 Visit [facility] 350.1.13.10 it y of Surgical 4.2.7.2.686 Too as Specialti [phone] Ky dical es 198 [facility] 2020-01-18 2020-01-18 Outpatient [facility] [id number] Univers 09:15:00 09:15:00 MARIANA ewing [facility] 2020-01-13 2020-01-13 Refill [facility] 1.2.840.114 [id number] Univers 00:00:00 00:00:00 Brendan [place] 350.1.13.10 [place] [phone] Ky dicnm nal 9 [facility] 2020-01-03 2020-01-03 [facility] 1.2.840.114 [id number] Univers 00:00:00 00:00:00 Brendan [place] 350.1.13.10 [place] [phone] [place] dic[place]al [address] [place] [address] 2019-12-20 2019-12-20 [facility] 1.2.840.114 [id number] Univers 00:00:00 00:00:00 Ronstephanieyanet [place] 350.1.13.10 it[place] [phone] [address] 2019-12-05 2019-12-05 Telephone [facility] 1.2.840.114 [id number] [facility] 00:00:00 00:00:00 Jason Sepulveda 350.1.13.10 [place] [phone] [address] 2019-12-04 2019-12-04 Outpatient R AUBREY [facility] [id number] Univers 11:00:00 11:00:00 CHRIS ity of [facility] 2019-12-04 2019-12-04 Telemedici [facility] 1.2.840.114 [id number] Univers 10:20:22 10:40:22 ne Visit Chris Kendra 350.1.13.10 [place] [phone] [address] 2019-12-04 2019-12-04 Telephone [facility] [id number] [id number] Univers 00:00:00 00:00:00 Chris Kendra 350.1.13.10 i [place] [phone] [place] 059 [facility] 2019-11-29 2019-11-29 Outpatient R JASON STALEY [facility] [id number] Univers 12:08:34 23:59:00 JASON STALEY ity of [facility] 2019-11-29 2019-11-29 [facility] [id number] Univers 12:08:00 23:59:00 Encounter Jason Teran Kendra 350.1.13.10 [place] [phone] [facility] [address] [place] [address] 2019-10-09 2019-11-27 Office Rafael [facility] 1.2.840.114 [id number] Univers 14:55:57 08:46:19 Visit Brendan Sepulveda 350.1.13.10 [place] [phone] [place] 059 [facility] 2019-11-22 2019-11-22 Refill [facility] 1.2.840.114 [id number] Univers 00:00:00 00:00:00 Ronstephanieyanet Kendra 350.1.13.10 [phone] [place] 059 [facility] 2019-11-19 2019-11-19 Ancillary Shirley Banks [facility] 1 .2.840.114 [id number] Univers 14:02:31 14:42:31 Visit Breanna Means 350.1.13.10 [phone] [place] 179 [facility] 2019-11-15 2019-11-15 Outpatient Brandon [facility] [id number] Univers 11:20:00 11:20:00 BREANNA ewing of [facility] 2019-11-08 2019-11-08 Ancillary Shirley Banks [facility] 1 .2.840.114 [id number] Univers 11:11:28 11:47:28 Visit Breanna Means 350.1.13.10 [place] [phone] [place] 179 [facility] 2019-10-19 2019-11-07 Ancillary Lorri Weinberg [facility] 1.2.840 .114 [id number] Univers 10:14:18 08:52:42 Visit Breanna Means 350.1.13.10 [place] [phone] [place] dic[place] nal 179 [facility] 2019-11-06 2019-11-06 Ancillary Shirley Banks [facility] 1 .2.840.114 [id number] [facility] 10:33:10 11:13:10 Visit Breanna Means 350.1.13.10 [place] [phone] [facility] Services [address] [facility] 2019-11-06 2019-11-06 [facility] [id number] Univers 10:40:00 10:40:00 BREANNA ewing [facility] 2019-11-05 2019-11-05 [facility] 1.2.840.114 [id number] Univers 00:00:00 00:00:00 Brendan Sepulveda 350.1.13.10 it[place] [phone] [facility] [address] [place] [address] 2019-11-05 2019-11-05 Refill Rafael [facility] 1.2.840.114 [id number] Univers 00:00:00 00:00:00 Brendan Sepulveda 350.1.13.10 [place] [phone] [place] dic[place] nal 0[address] [facility] 2019-11-01 2019-11-01 Ancillary Shirley Banks [facility] 1 .2.840.114 [id number] Univers 11:06:32 11:46:32 Visit Breanna Means 350.1.13.10 [place] [phone] [place] dical [place]al 179 [facility] 2019-10-29 2019-10-29 Ancillary Shirley Banks [facility] 1 .2.840.114 [id number] Univers 11:11:05 11:51:05 Visit Breanna Means 350.1.13.10 [place] [phone] [place] dical [place]al 179 [facility] 2019-10-26 2019-10-26 Ancillary Lorri Weinberg [facility] 1.2.840 .114 [id number] [facility] 10:35:15 11:26:09 Visit Breanna Means 350.1.13.10 it[place] [phone] [place] 179 [facility] 2019-10-25 2019-10-25 Case SAM Ortiz 1.2.840.114 [id number] Univers 00:00:00 00:00:00 [facility] ROSI 350.1.13.10 ity of [facility] 4.2.7.2.686 Too as [phone] [address] 2019-10-25 2019-10-25 Telephone [facility] 1.2.840.114 [id number] Univers 00:00:00 00:00:00 Jason Sepulveda 350.1.13.10 it[place] [phone] [place] dical [place]al 092 [facility] 2019-10-24 2019-10-24 Ancillary Lorri Weinberg [facility] 1.2.840 .114 [id number] Univers 11:14:15 11:54:15 Visit Breanna Means 350.1.13.10 it[place] [phone] [place] dical [place]al 179 [facility] 2019-10-24 2019-10-24 Telephone Rafael [facility] [id number] Univers 00:00:00 00:00:00 Brendan Sepulveda 350.1.13.10 it[place] [phone] [place] 059 [facility] 2019-10-23 2019-10-23 Ancillary Lorri Weinberg [facility] 1.2.840 .114 [id number] Univers 15:30:50 16:10:50 Visit Breanna Means 350.1.13.10 it[place] of [place] [phone] [place] dical [place]al 179 [facility] 2019-10-23 2019-10-23 Office Luís, [facility] 1.2.840.114 [id number] Univers 13:32:50 14:33:50 Visit Jason Sepulveda 350.1.13.10 it[place] of [place] [phone] [place] dical [place]al 092 [facility] 2019-09-17 2019-10-22 Ancillary Shirley Banks [facility] 1 .2.840.114 [id number] Univers 09:01:46 09:42:22 Visit Breanna Means 350.1.13.10 it[place] of [place] [phone] [place] dical [place] 179 [facility] 2019-10-19 2019-10-19 Orders Doctor SAM 1.2.840.114 [id number] Univers 00:00:00 00:00:00 Only Unassigned, ROSI 350.1.13.10 ity of [facility] [facility] 4.2.7.2.686 Too as [phone] [facility] emmanuel [address] 2019-10-18 2019-10-18 Office Julisa [facility] 1.2.840.114 [id number] Univers 13:50:43 13:50:58 Visit Gene Sepulveda 350.1.13.10 it[place] [phone] [place] dical [place]al 059 [facility] 2019-10-18 2019-10-18 Outpatient R JULISA [facility] [id number] Univers 10:30:00 13:50:58 SENDIL ity of [facility] 2019-10-18 2019-10-18 Telephone Rafael [facility] [id number] Univers 00:00:00 00:00:00 Brendan Sepulveda 350.1.13.10 it[place] of [place] [phone] [place] dical [place]al 059 [facility] 2019-10-18 2019-10-18 Orders Doctor SAM 1.2.840.114 [id number] Univers 00:00:00 00:00:00 Only Unassigned, ROSI 350.1.13.10 [facility] 4.2.7.2.686 Too as [phone] [address] 2019-10-15 2019-10-15 Transition Aki Levy 1.2.840.114 [id number] Univers 00:00:00 00:00:00 of Care Martha Short 350.1.13.10 it y of [place] [phone] [facility] [address] 2019-10-12 2019-10-12 Outpatient R CLARY [facility] [id number] Univers 11:20:00 11:20:00 BREANNA ewing of [facility] 2019-10-09 2019-10-09 Outpatient R RAFAEL [facility] [id number] Univers 15:00:00 16:27:15 BRENDAN ewing o f [facility] 2019-10-09 2019-10-09 Ancillary Lorri Weinberg [facility] 1.2.840 .114 [id number] Univers 10:28:34 11:37:49 Visit Breanna Means 350.1.13.10 it[place] [phone] [place] dical [place]al [address] [facility] 2019-10-08 2019-10-08 Transition Aki Lowe 1.2.840.114 [id number] Univers 00:00:00 00:00:00 of Care Yenifer Short 350.1.13.10 it y of [place] [phone] [facility] [address] 2019-10-04 2019-10-05 Emergency Yuliana Harley [facility] 1.2.840.1 14 [id number] Univers 16:52:17 16:50:00 Efe Pugh 350.1.13.10 it[place] of [place] [phone] [facility] [address] 2019-10-03 2019-10-03 Ancillary Lorri Weinberg [facility] 1.2.840 .114 [id number] Univers 15:03:32 15:43:32 Visit Breanna Means 350.1.13.10 it[place] [phone] [place] dical [place]al 179 [facility] 2019-09-28 2019-09-28 Ancillary Shirley Banks [facility] 1 .2.840.114 [id number] Univers 10:51:31 11:58:26 Visit Breanna Means 350.1.13.10 it[place] of [place] [phone] [place] dical [place]al 179 [facility] 2019-09-27 2019-09-27 Ancillary Lorri Weinberg [facility] 1.2.840 .114 [id number] Univers 13:04:43 13:49:43 Visit Breanna Means 350.1.13.10 it[place] of [place] [phone] [place] dical [place]al 179 [facility] 2019-09-27 2019-09-27 Orders Doctor SAM 1.2.840.114 [id number] Univers 00:00:00 00:00:00 Only Unassigned, ROSI 350.1.13.10 ity of [place] [facility] 4.2.7.2.686 Too as [phone] [facility] [address] 2019-09-25 2019-09-25 Ancillary Lorri Weinberg [facility] 1.2.840 .114 [id number] [facility] 13:03:04 13:48:04 Visit Breanna Means 350.1.13.10 ity of [place] 4.2.7.2.686 Ofe Banks [phone] [place] 179 [facility] Results Test Description Test Time Test Comments Results Result Sour e Comments ANG, NEPHROSTOMY 2022-05-06 Reason for TUBE CHANGE, LEFT 17:22:00 Exam:->NEOPLAS M RELATED [facility] 1940 Sex: M FINAL REPORT Ultrasound and fluoroscopically guided left nephrostomy tube placement Clinical History: Collecting system access for chemotherapy administration. Modality: Sonography and fluoroscopy Occupational Therapy Asst: Mike Fischer MD. Gin Feeder: Saul Sotelo M.D.. Sedation: Versed 3 mg [...] tract was dilated with 7 and 9 Palestinian dilators. A 8.5 Palestinian drainage catheter was placed into the left [...] of left nephrostomy tube. Signed: Mike Fischer MDRepst. louis behavioral [facility] institute Verified Date/Time: 05/06/2022 17:22:20 Reading Location: [address] Body Reading Room -Glucose meter 2022-05-03 09:58:14 Test Item Value Reference Range Interpretation Comme [facility] POC-Glucose Meter (test code = 107 mg/dL 70-110 : TESTED AT [facility] [address] [facility] 1538) [facility], [facility] 30: Tax Services Professional/Techni raoul ID = [id number] for CAREN BLACKWELL ET Lab Interpretation (test code = Normal 96313-7) [facility]-Glucose [id number] 09:58:14 Test Item Value Reference Range Interpretation Comments POC-Glucose Meter (test 107 mg/dL 70-110 : TE STED AT [facility] code = 1538) [address] [facility], 770 30: Tax Services Professional/Techni raoul ID = [id number] for CAREN BLACKWELL ET Lab Interpretation (test Normal code = 81390-8) [facility] [id number] 09:58:14 Test Item Value Reference Range Interpretation Comments POC-Glucose Meter (test 107 mg/dL 70-110 : TE STED AT [facility] code = 1538) [address] [facility], 770 30: Tax Services Professional/Techni raoul ID = [id number] for CAREN BLACKWELL ET Lab Interpretation (test Normal code = 93119-4) [facility]-GLUCOSE [id number] 09:58:14 Test Item Value Reference Range Interpretation Comments POC-GLUCOSE METER 107 mg/dL 70-110 : TESTED A T [facility] 6720 (BEAKER) (test code = [facility] Brandon [facility], 1538) [address]: Tax Services Professional/Techni raoul ID = [id number] for KIRIT LUGO CBC W/PLT COUNT & AUTO [id number] 09:44:59 Test Item Value Reference Range Interpretation [...] PERCENT (BEAKER) (test code = 2801) PROTHROMBIN TIME/[id number] 09:44:04 Test Item Value Reference Range Interpretation Comments PROTIME (BEAKER) 12.7 seconds 11.9-14.2 (test code = 759) INR (BEAKER) (test 1.01 See_Comment [Automat ed message] code = 370) The system Crowdpark generated this result transmitted ref erence range: <=5.90. The reference range was not used to int erpret this result as normal/abnormal . RECOMMENDED COUMADIN/WARFARIN INR THERAPY RANGESSTANDARD DOSE: 2.0 - 3.0 Includes: PROPHYLAXIS for venous thrombosis, systemic embolization; TREATMENT for venous thrombosis and/or pulmonary embolus.HIGH RISK: Target INR is 2.5-3.5 for patients with mechanical heart valves.POCT URINALYSIS [id number] 00:00:00 Test Item Value Reference Range Interpretation Comments COLOR UA (test code = 5778-6) Karon YELLOW/STRAW CLARITY UA (test code = 49279-4) Clear CLEAR GLUCOSE UA (test code = 5792-7) Negative NEGATIVE BILIRUBIN UA (test code = 5770-3) Negative NEGATIVE KETONES UA (test code = 21073-8) Negative NEGATIVE SPECIFIC GRAVITY UA (test code [...] NEGATIVE REDUCING SUBSTANCES URINE (test code = 26532-8) [facility], PERC, EXTERNAL [id number] 19:13:00Needs left percutaneous nephrostomy tube placement (NOT PCNU), due to distal obstruction in left ureter. Reason for exam:->Severe left hydronephrosisST. [facility]: [facility] : 1940 Sex: MFINAL REPORT History: Left [...] The tract was dilated and an 8 Palestinian pigtail external nephrostomy catheter was placed over [...] is reported as (Ka,r): 63 mGy Signed:Sam Lundepventura Verified Date/Time: 01/07/2022 19:13:35 Reading Location: [place] [address] Angio Body Reading Room Urine [id number] 11:43:21 Test Item Value Reference Range Interpretation Comments Result (test code = 6463-4) No growth [facility] [id number] 11:43:21 Test Item Value Reference Range Interpretation Comments Result (test code = 6463-4) No growth [facility] [id number] 11:43:21 Test Item Value Reference Range Interpretation Comments Result (test code = 6463-4) No growth [facility] [id number] 11:43:21 Test Item Value Reference Range Interpretation Comments CULTURE (BEAKER) (test code = 1095) No growth POCT-GLUCOSE [id number] 12:05:17 Test Item Value Reference Range Interpretation Comments POC-GLUCOSE METER 111 mg/dL 70-110 H : TESTED A T [facility] 6720 (BEAKER) (test code = [place], 1538) [address]: Tax Services Professional/Techni raoul ID = [id number] for ANGELIA BURTON BASIC METABOLIC [id number] 05:57:55 Test Item Value Reference Range Interpretation [...] S NOT APPLICABLE FOR DIALYSIS PATIEN TS. Tax Services Professional ID - PIAYA LCBC W/PLT COUNT & AUTO [id number] 05:37:43 Test Item Value Reference Range Interpretation [...] PERCENT (BEAKER) (test code = 2801) Gram [id number] 00:56:10 Test Item Value Reference Range Interpretation Comments Gram Stain Result (test No organisms seen code = 1123) [facility] [id number] 00:56:10 Test Item Value Reference Range Interpretation Comments Gram Stain Result (test No organisms seen code = 1123) [facility] [id number] 00:56:10 Test Item Value Reference Range Interpretation Comments Gram Stain Result (test No organisms seen code = 1123) [facility] [id number] 00:56:10 Test Item Value Reference Range Interpretation Comments GRAM STAIN RESULT (BEAKER) <1+ WBCs (test code = 1123) GRAM STAIN RESULT (BEAKER) No organisms seen (test code = 56815) BASIC METABOLIC [id number] 05:12:35 Test Item Value Reference Range Interpretation [...] S NOT APPLICABLE FOR DIALYSIS PATIEN TS. Tax Services Professional ID - PIAYA LCBC W/PLT COUNT & AUTO [id number] 04:30:47 Test Item Value Reference Range Interpretation [...] = 2801) Urinalysis w/Microscopic + Reflex to [id number] 23:36:22 Test Item Value Reference Range Interpretation Comments Color, UA (test code Yellow = 5778-6) Clarity, UA (test Clear code = 5767-9) Specific [place], UA 1.043 1.001-1.035 H (test code = 5811-5) pH, UA (test code = 6.0 5.0-8.0 5803-2) Protein, UA (test 20 mg/dL Negative A code = 13999-8) Glucose, UA (test Negative Negative code = 365) Ketones, UA (test Negative Negative code = 2514-8) Bilirubin, UA (test Negative Negative code = 34985-1) Blood, UA (test code Negative Negative = 78825-5) Nitrite, UA (test Negative Negative code = 5802-4) Leukocytes, UA (test Negative Negative code = 5799-2) Urobilinogen, UA 0.2 mg/dL 0.2-1.0 (test code = 15279-9) RBC, UA (test code = 1 See_Comment [Autom ated 01378-8) message] The system which generated this result [...] Bacteria, UA (test None Seen code = 81244-8) Crystals, Urine (test None Seen code = 72134-6) Specimen Source (test code = 2795) BOB (test code = BOB) Tax Services Professional ID - [auto]Tax Services Professional ID - tech Lab Interpretation Abnormal (test code = 96512-7) [facility]inal[facility] w/Microscopic + Reflex to Culture 2022-01-03 23:36:22 Test Item Value Reference Range Interpretation Comments Color, UA (test code Yellow = 5778-6) Clarity, UA (test Clear code = 5767-9) Specific [place], UA 1.043 1.001-1.035 H (test code = 5811-5) pH, UA (test code = 6.0 5.0-8.0 5803-2) Protein, UA (test 20 mg/dL Negative A code = 05752-3) Glucose, UA (test Negative Negative code = 365) Ketones, UA (test Negative Negative code = 2514-8) Bilirubin, UA (test Negative Negative code = 20037-2) Blood, UA (test code Negative Negative = 30848-4) Nitrite, UA (test Negative Negative code = 5802-4) Leukocytes, UA (test Negative Negative code = 5799-2) Urobilinogen, UA 0.2 mg/dL 0.2-1.0 (test code = 51732-0) RBC, UA (test code = 1 See_Comment [Autom ated 30194-9) message] The system which generated this result [...] Bacteria, UA (test None Seen code = 13090-3) Crystals, Urine (test None Seen code = 79242-6) Specimen Source (test code = 2795) BOB (test code = BOB) Tax Services Professional ID - [auto]Tax Services Professional ID - tech Lab Interpretation Abnormal (test code = 60777-1) [facility] w/Microscopic + Reflex to Culture 2022-01-03 23:36:22 Test Item Value Reference Range Interpretation Comments Color, UA (test code Yellow = 5778-6) Clarity, UA (test Clear code = 5767-9) Specific [place], UA 1.043 1.001-1.035 H (test code = 5811-5) pH, UA (test code = 6.0 5.0-8.0 5803-2) Protein, UA (test 20 mg/dL Negative A code = 65299-2) Glucose, UA (test Negative Negative code = 365) Ketones, UA (test Negative Negative code = 2514-8) Bilirubin, UA (test Negative Negative code = 02023-2) Blood, UA (test code Negative Negative = 48970-8) Nitrite, UA (test Negative Negative code = 5802-4) Leukocytes, UA (test Negative Negative code = 5799-2) Urobilinogen, UA 0.2 mg/dL 0.2-1.0 (test code = 52176-1) RBC, UA (test code = 1 See_Comment [Autom ated 00801-8) message] The system which generated this result [...] Bacteria, UA (test None Seen code = 68746-5) Crystals, Urine (test None Seen code = 70521-5) Specimen Source (test code = 2795) BOB (test code = BOB) Tax Services Professional ID - [auto]Tax Services Professional ID - tech Lab Interpretation Abnormal (test code = 36641-4) [facility] W/ REFLEX URINE [id number] 23:36:22 Test Item Value Reference Range Interpretation [...] = 1521) SOURCE(BEAKER) (test code = 2795) Tax Services Professional ID - [auto]Tax Services Professional ID - techCOMPREHENSIVE METABOLIC [id number] 23:07:39 Test Item Value Reference Range Interpretation [...] S NOT APPLICABLE FOR DIALYSIS PATIEN TS. Tax Services Professional ID - DBCBC W/PLT COUNT & AUTO [id number] 23:06:50 Test Item Value Reference Range Interpretation [...] 0-1 PERCENT (BEAKER) (test code = 2801) [id number] 23:01:04 Test Item Value Reference Range Interpretation [...] 2.5-3.5 for patients with mechanical heart valves.PROTHROMBIN TIME/[id number] 23:00:22 Test Item Value Reference Range Interpretation Comments PROTIME (BEAKER) 13.0 seconds 11.9-14.2 (test code = 759) INR (BEAKER) (test 1.00 See_Comment [Automat ed message] code = 370) The system Crowdpark generated this result transmitted ref erence range: <=5.90. The reference range was not used to int erpret this result as normal/abnormal . RECOMMENDED COUMADIN/WARFARIN INR THERAPY RANGESSTANDARD DOSE: 2.0 - 3.0 Includes: PROPHYLAXIS for venous thrombosis, systemic embolization; TREATMENT for venous thrombosis and/or pulmonary embolus.HIGH RISK: Target INR is 2.5-3.5 for patients with mechanical heart valves.URINE AND [id number] 19:16:00 Test Item Value Reference Range Interpretation Comments UA Ketones (test code = UA Ketones) NEGATIVE [facility] AND [id number] 19:16:00 Test Item Value Reference Range Interpretation Comments UA Color (test code = UA Color) YELLOW [facility] AND [id number] 19:16:00 Test Item Value Reference Range Interpretation Comments UA Turbidity (test code = UA CLOUDY Turbidity) [facility] AND [id number] 19:16:00 Test Item Value Reference Range Interpretation Comments UA Spec Grav (test code = UA Spec 1.016 1 1.001-1.035 Grav) [facility] AND [id number] 19:16:00 Test Item Value Reference Range Interpretation Comments UA pH (test code = UA pH) 6.5 1 5.0-8.0 [facility] AND [id number] 19:16:00 Test Item Value Reference Range Interpretation Comments UA Glucose (test code = UA Glucose) NEGATIVE [facility] AND [id number] 19:16:00 Test Item Value Reference Range Interpretation Comments UA Bili (test code = UA Bili) NEGATIVE [facility] AND [id number] 19:16:00 Test Item Value Reference Range Interpretation Comments UA Ketones (test code = UA Ketones) NEGATIVE [facility] AND [id number] 19:16:00 Test Item Value Reference Range Interpretation Comments UA Blood (test code = UA Blood) TRACE [facility] [id number] 19:16:00 Test Item Value Reference Range Interpretation Comments UA Protein (test code = UA Protein) TRACE [facility] [id number] 19:16:00 Test Item Value Reference Range Interpretation Comments UA Nitrite (test code = UA Nitrite) NEGATIVE [facility] [id number] 19:16:00 Test Item Value Reference Range Interpretation Comments UA Leuk Est (test code = UA Leuk NEGATIVE Est) [facility] [id number] 19:16:00 Test Item Value Reference Range Interpretation Comments UA WBC (test code = UA WBC) 6-10 [facility] [id number] 19:16:00 Test Item Value Reference Range Interpretation Comments UA RBC (test code = UA RBC) 3-10 [facility] [id number] 19:16:00 Test Item Value Reference Range Interpretation Comments UA Sq Epi (test code = UA Sq Epi) 0-5 [facility] [id number] 19:16:00 Test Item Value Reference Range Interpretation Comments UA Bacteria (test code = UA Bacteria) MANY [facility] [id number] 19:16:00 Test Item Value Reference Range Interpretation Comments UA Hyal Cast (test code = UA Hyal Cast) 0-5 [facility] [id number] 19:16:00 Test Item Value Reference Range Interpretation Comments UA Reflex (test code = UA Reflex) SEE COMMENT [facility] [id number] 19:16:00 Test Item Value Reference Range Interpretation Comments UA Blood (test code = UA Blood) TRACE [facility] [id number] 19:16:00 Test Item Value Reference Range Interpretation Comments UA Protein (test code = UA Protein) TRACE [facility] [id number] 19:16:00 Test Item Value Reference Range Interpretation Comments UA Nitrite (test code = UA Nitrite) NEGATIVE [facility] [id number] 19:16:00 Test Item Value Reference Range Interpretation Comments UA Leuk Est (test code = UA Leuk NEGATIVE Est) [facility] [id number] 19:16:00 Test Item Value Reference Range Interpretation Comments UA WBC (test code = UA WBC) 6-10 [facility] [id number] 19:16:00 Test Item Value Reference Range Interpretation Comments UA RBC (test code = UA RBC) 3-10 [facility] [id number] 19:16:00 Test Item Value Reference Range Interpretation Comments UA Sq Epi (test code = UA Sq Epi) 0-5 [facility] [id number] 19:16:00 Test Item Value Reference Range Interpretation Comments UA Bacteria (test code = UA Bacteria) MANY [facility] [id number] 19:16:00 Test Item Value Reference Range Interpretation Comments UA Color (test code = UA Color) YELLOW [facility] [id number] 19:16:00 Test Item Value Reference Range Interpretation Comments UA Hyal Cast (test code = UA Hyal Cast) 0-5 [facility] [id number] 19:16:00 Test Item Value Reference Range Interpretation Comments UA Reflex (test code = UA Reflex) SEE COMMENT [facility] [id number] 19:16:00 Test Item Value Reference Range Interpretation Comments UA Turbidity (test code = UA CLOUDY Turbidity) [facility] AND [id number] 19:16:00 Test Item Value Reference Range Interpretation Comments UA Spec Grav (test code = UA Spec 1.016 1 1.001-1.035 Grav) [facility] AND [id number] 19:16:00 Test Item Value Reference Range Interpretation Comments UA pH (test code = UA pH) 6.5 1 5.0-8.0 [facility] AND [id number] 19:16:00 Test Item Value Reference Range Interpretation Comments UA Glucose (test code = UA Glucose) NEGATIVE [facility] [id number] 19:16:00 Test Item Value Reference Range Interpretation Comments UA Bili (test code = UA Bili) NEGATIVE [facility] [id number] 19:16:00 Test Item Value Reference Range Interpretation Comments UA Ketones (test code = UA Ketones) NEGATIVE [facility] [id number] 19:16:00 Test Item Value Reference Range Interpretation Comments UA Blood (test code = UA Blood) TRACE [facility] [id number] 19:16:00 Test Item Value Reference Range Interpretation Comments UA Protein (test code = UA Protein) TRACE [facility] AND [id number] 19:16:00 Test Item Value Reference Range Interpretation Comments UA Nitrite (test code = UA Nitrite) NEGATIVE [facility] AND [id number] 19:16:00 Test Item Value Reference Range Interpretation Comments UA Leuk Est (test code = UA Leuk NEGATIVE Est) [facility] AND [id number] 19:16:00 Test Item Value Reference Range Interpretation Comments UA WBC (test code = UA WBC) 6-[address] [facility] AND [id number] 19:16:00 Test Item Value Reference Range Interpretation Comments UA RBC (test code = UA RBC) 3-[address] [facility] AND [id number] 19:16:00 Test Item Value Reference Range Interpretation Comments UA Sq Epi (test code = UA Sq Epi) 0-[address] [facility] AND [id number] 19:16:00 Test Item Value Reference Range Interpretation Comments UA Bacteria (test code = UA Bacteria) MANY [facility] AND [id number] 19:16:00 Test Item Value Reference Range Interpretation Comments UA Hyal Cast (test code = UA Hyal Cast) 0-[address] [facility] AND [id number] 19:16:00 Test Item Value Reference Range Interpretation Comments UA Reflex (test code = UA Reflex) SEE COMMENT [facility] AND [id number] 19:16:00 Test Item Value Reference Range Interpretation Comments UA Color (test code = UA Color) YELLOW [facility] AND [id number] 19:16:00 Test Item Value Reference Range Interpretation Comments UA Turbidity (test code = UA CLOUDY Turbidity) [facility] AND [id number] 19:16:00 Test Item Value Reference Range Interpretation Comments UA Spec Grav (test code = UA Spec 1.016 1 1.001-1.035 Grav) [facility] AND [id number] 19:16:00 Test Item Value Reference Range Interpretation Comments UA pH (test code = UA pH) 6.5 1 5.0-8.[address] [facility] AND [id number] 19:16:00 Test Item Value Reference Range Interpretation Comments UA Glucose (test code = UA Glucose) NEGATIVE [facility] [id number] 19:16:00 Test Item Value Reference Range Interpretation Comments [facility] Bili (test code = [facility]A Bili) [facility] [id number] 19:16:00 Test Item Value Reference Range Interpretation Comments UA Ketones (test code = UA Ketones) NEGATIVE [facility] [id number] 19:16:00 Test Item Value Reference Range Interpretation Comments UA Blood (test code = UA Blood) TRACE [facility] [id number] 19:16:00 Test Item Value Reference Range Interpretation Comments UA Protein (test code = UA Protein) TRACE [facility] [id number] 19:16:00 Test Item Value Reference Range Interpretation Comments UA Nitrite (test code = UA Nitrite) NEGATIVE [facility] [id number] 19:16:00 Test Item Value Reference Range Interpretation Comments UA Leuk Est (test code = UA Leuk NEGATIVE Est) [facility] [id number] 19:16:00 Test Item Value Reference Range Interpretation Comments UA WBC (test code = UA WBC) 6-10 [facility] [id number] 19:16:00 Test Item Value Reference Range Interpretation Comments UA RBC (test code = UA RBC) 3-10 [facility] [id number] 19:16:00 Test Item Value Reference Range Interpretation Comments UA Sq Epi (test code = UA Sq Epi) 0-5 [facility] [id number] 19:16:00 Test Item Value Reference Range Interpretation Comments UA Bacteria (test code = UA Bacteria) MANY [facility] [id number] 19:16:00 Test Item Value Reference Range Interpretation Comments UA Hyal Cast (test code = UA Hyal Cast) 0-5 [facility] [id number] 19:16:00 Test Item Value Reference Range Interpretation Comments UA Reflex (test code = UA Reflex) SEE COMMENT [facility] [id number] 19:16:00 Test Item Value Reference Range Interpretation Comments UA Color (test code = UA Color) YELLOW [facility] [id number] 19:16:00 Test Item Value Reference Range Interpretation Comments UA Turbidity (test code = UA CLOUDY Turbidity) [facility] [id number] 19:16:00 Test Item Value Reference Range Interpretation Comments UA Spec Grav (test code = UA Spec 1.016 1 1.001-1.035 Grav) [facility] AND [id number] 19:16:00 Test Item Value Reference Range Interpretation Comments UA pH (test code = UA pH) 6.5 1 5.0-8.[address] [facility] AND [id number] 19:16:00 Test Item Value Reference Range Interpretation Comments UA Glucose (test code = UA Glucose) NEGATIVE [facility] AND [id number] 19:16:00 Test Item Value Reference Range Interpretation Comments UA Bili (test code = UA Bili) [id number] 10:40:00 Test Item Value Reference Range Interpretation Comments POC-CREATININE 0.9 mg/dL 0.6-1.[address] [facility] (BEAKER) (test 245[address] [facility] code = 1859) [facility] 7703 0 POC-EGFR 82 mL/min/1.73M2 (BEAKER) (test code = 1860) BASIC METABOLIC [id number] 09:21:00 Test Item Value Reference Range Interpretation [...] ESTIMATED GFR. CREATINE KINASE (CK), TOTAL AND [id number] 08:57:00 Test Item Value Reference Range Interpretation Comments CREATINE KINASE TOTAL (BEAKER) 128 U/L 29-200 (test code = 380) CREATINE KINASE-MB (BEAKER) (test 3.6 ng/mL 0.0-6.6 code = 750) CREATINE KINASE-MB INDEX (BEAKER) 2.8 % (test code = 395) Effective 07/30/2014: CK-MB Reference Range ChangeNew: 0.0-6.6 Previous: 0.0-4.9CK-MB Reference Range:<6.7 Normal6.7-10.0 Borderline>10.0 Abnormal TROPONIN [id number] 08:57:00 Test Item Value Reference Range Interpretation [...] 29 pg/mL 0-100 (test code = 700) [id number] 08:50:00 Test Item Value Reference Range Interpretation Comments MAGNESIUM (BEAKER) (test code = 2.1 mg/dL 1.6-2.6 627) [id number] 08:47:00 Test Item Value Reference Range Interpretation [...] mechanical heart valves.CBC W/PLT COUNT & AUTO [id number] 08:36:00 Test Item Value Reference Range Interpretation [...]
[2022-11-15 12:52] VITALS: BMI 30.5
[2022-11-15] MEDS ORDERED: INFLUENZA VACCINE (for 6+ mo) 0.5 ML DOSE IMVAC ONE (14:00)
[2022-11-15] MEDS ORDERED: PNEUMOCOCCAL VACCINE 0.5 ML IMVAC ONE (14:00)
[2022-11-15] MEDS: CEFAZOLIN 1 GM in NA CHLORIDE 0.9% 50 ML IVPB SCH (16:26)
[2022-11-15] MEDS ORDERED: HOME MED 1 EA UNK (Meclizine Hcl [Meclizine Hcl] 25 MG Tablet) PO PRN (17:59)
[2022-11-15] MEDS ORDERED: ACETAMINOPHEN 500 MG TAB PO PRN (17:59)
[2022-11-15 18:00] LABS: Hematocrit 42.9 % (39.6-49.0)
--- NOTE | 2022-11-15 18:05 | P.HP ---
Certification for Inpatient Patient admitted to: Inpatient With expected LOS: >2 Midnights Practitioner: I am a practitioner with admitting privileges, knowledge of patient current condition, hospital course, and medical plan of care. 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 HAS CHORNIC EDEMA AND ULCERS IN LEGS. HE NEEDED SUGERY HE HAS HAD SEVERE PAIN IN L HIP. HE IS ALREADY BETTER WITH PAIN TODAY JUST AFTER SURGERY Allergies delavirdine Allergy (Verified 11/11/22 10:49) Hallucinations hydrocodone Allergy (Verified 11/11/22 10:49) Bad Dreams hydromorphone [From Dilaudid] Allergy (Verified 11/11/22 10:49) Hallucinations tramadol Allergy (Verified 11/11/22 10:49) Hallucinations Home medications list reviewed: Yes Home Medications: Carbidopa/Levodopa [Carbidopa-Levo ER 50-200 Tab] 1 tab PO DAILY 12/11/21 Gabapentin 100 mg PO SEECOM 03/24/22 Tamsulosin [Flomax*] 0.4 mg PO BEDTIME #90 cap 03/29/22 predniSONE [Deltasone*] 10 mg PO DAILY 05/18/22 Cholecalciferol (Vitamin D3) [Vitamin D 5,000 IU Cap*] 5,000 unit PO DAILY #30 cap 05/25/22 Metoprolol Succinate 75 mg PO DAILY 06/22/22 Apixaban [Eliquis] 5 mg PO BID 07/27/22 Furosemide [Lasix] 20 mg PO BID 07/27/22 Tizanidine HCl [Zanaflex] 1 tab PO BEDTIME 10/27/22 Amox/Clavulanate [Augmentin 875-125 Tab] 875 mg PO BID #14 tab 11/01/22 Hydrocodone/Acetaminophen [Hydrocodone-Acetamin 5-325 mg] 1 tab PO Q6HR PRN #12 11/01/22 Acetaminophen [Acetaminophen Extra Strength] 500 mg PO PRN PRN 11/11/22 Meclizine HCl 25 mg PO DAILYPRN PRN 11/11/22 Potassium Chloride [Klor-Con M10] 10 meq PO BIDWM 11/11/22 - Past Medical/Surgical History Has patient received pneumonia vaccine in the past: No Diabetic: No -: afib -: colon CA -: bladder CA-current -: prostate CA -: HTN -: arthritis -: POLYMYALGIA RHEUMATICA- STEROIDS -: inguinal hernia repair -: brain tumor removed (benign) -: Colectomy due to colon cancer -: bladder cancer procedure -: stent placed in ureter -: artificial left eye - Family History Family History: Reviewed- Non-Contributory - Family History Father -: Other (see notes) Notes: brain tumor Mother -: Other (see notes) Notes: arthritis and multiple issues cannot remember - Social History Smoking Status: Former smoker Alcohol use: Yes CD- Drugs: No Caffeine use: Yes Place of Residence: Home Review of Systems 10-point ROS is otherwise unremarkable General: Weakness Physical Examination - Vital Signs Temperature: 96.9 F Blood Pressure: 115/60 Pulse: 73 Respirations: 16 Pulse Ox (%): 97 - Physical Exam General: Oriented x3, Mild distress HEENT: Atraumatic, PERRLA, Mucous membr. moist/pink, EOMI, Sclerae nonicteric Neck: Supple, 2+ carotid pulse no bruit, No LAD, Without JVD or thyroid abnormality Respiratory: Clear to auscultation bilaterally, Normal air movement Cardiovascular: Regular rate/rhythm, Normal S1 S2 Gastrointestinal: Normal bowel sounds, No tenderness Musculoskeletal: No tenderness Integumentary: No rashes Neurological: Normal gait, Normal speech, Normal strength at 5/5 x4 extr, Normal tone, Normal affect Lymphatics: No axilla or inguinal lymphadenopathy - Studies Laboratory Data (last 24 hrs) 11/15/22 10:53: Hgb 12.5 L, Hct 38.3 L Assessment and Plan - Problems (Diagnosis) (1) Hip joint replacement status Current Visit: Yes Status: Chronic Plan: PT CONSULT REHAB CONSULT HE GETS HALLUCINATES WITH NARCOTICS AND REFUSED TO TAKE NORCO TRY FENTANYL IF IT WORKS. ELIQUIS CONTINUE HE TAKES THIS FOR A FIB. AIR MATTRESS. Qualifiers: Laterality: left Qualified Code(s): Z96.642 - Presence of left artificial hip joint (2) Venous stasis ulcer Current Visit: Yes Status: Chronic Plan: STIMULEN POWDER AND COBAN LIGHT (3) Bladder cancer Current Visit: Yes Status: Chronic (4) History of atrial fibrillation Current Visit: Yes Status: Chronic Plan: STABLE ON AC ALREADY - Advance Directives Does patient have a Living Will: Yes Does patient have a Durable POA for Healthcare: Yes
[2022-11-15] MEDS ORDERED: MECLIZINE HCL 12.5 MG TAB PO PRN (18:27)
--- NOTE | 2022-11-15 20:38 | OP ---
Surgeon: Talib Montesinos MD Preoperative Diagnosis: Left hip arthritis. Postoperative Diagnosis: Left hip arthritis. Procedure: Left total hip arthroplasty using the Zahira system. Estimated Blood Loss: 150 cc. Complications: There were no complications. Indications For Operation: Mr. Peralta is an 82-year-old gentleman, who unfortunately has debilitat ing hip pain in his left side. He is currently being treated for urinary cancer and I have spoken wi th his urologist as well as his primary care physician and he does have a slight pause in his treatme nt, which would allow for operative intervention regarding his hip and the hip was so debilitating. The patient is essentially miserable at this point, and risks, benefits, and alternatives have been d iscussed and he was seen by the wound center for some nonhealing ulcers. He was told that given his cancer diagnosis as well as the medial compromise and other fractures that he is at increased risk fo r complications, he says he understands things as presented and wishes to proceed. Description Of Procedure: Patient was taken to the operating room and placed in supine position. Ge neral anesthesia was obtained by the staff. Following this, he was then rolled right side down with his left lower extremity after being prepped and draped in usual sterile fashion for the procedure. A standard posterolateral incision taken down carefully through the skin and soft tissues. Meticulou s hemostasis has been maintained using Bovie electrocautery. This leads down to the fascia. A small stab wound was made in the fascia and the gluteal tendon was then palpated to ensure correct placeme nt of the incision. This was then taken gently up carefully near the tip of the greater trochanter. This was gently curved posteriorly with the gluteus boni muscles being spread using finger pressu re. The sciatic nerve was then palpated and protected as a significant amount of fat as well as some bursal tissue was removed to allow for better visualization. After this, the capsule and external r otators were then taken down and tagged for later repair. This leads down to the hip. The hip was t hen gently dislocated and a standard neck cut or perhaps slightly shorter than standard neck cut was performed. The head was then sized using ring gauges. After this, the acetabulum was inspected and any soft tissue was removed. There was also found to be a loose body, which was removed. The labrum was then removed and it was then sequentially reamed until there was significant bleeding bone throu ghout. After this, the cup was then placed in standard fashion and attention was turned to the femur . scrap cutter was used to lateralize and the canal finding reamer was then placed. It was then broac hed up until it was a very firm fit and fill of the stem. After this, the hip was then x-rayed. Cuf f appears to be doing quite well. The broach appears to be appropriately sized. A liner was then pl aced within the cup and the final stem was then placed. It was then trialed using a standard. This may actually be quite good. However, the decision was made to go to a +4 as he is very low demand an d do not want to have any concerns about dislocation if possible. This is also relocated and does co me to full extension. After this, the trial ball was removed. The final ball was then placed. He d oes come to flexion over 90 degrees with internal rotation over 45 degrees with full adduction withou t sign of dislocation. The wound was copiously irrigated and external rotators were then repaired ba ck to the trochanter via the bone tunnels. This was then irrigated and the skin was closed in a wate rtight fashion using heavy Vicryl sutures, followed by closure of the skin using Vicryl sutures, foll owed by michael. He was then placed in Aquacel dressing, awakened, and taken to recovery room in goo d condition with no complications. /MAVIS Voice ID: [id number] Report ID: [id number]
[2022-11-15] MEDS: FUROSEMIDE 20 MG TABLET PO SCH (21:00)
[2022-11-15] MEDS ORDERED: HOME MED 1 EA UNK (Tizanidine Hcl [Zanaflex] 2 MG Capsule) PO SCH (21:00)
[2022-11-15] MEDS: APIXABAN 5 MG TABLET PO SCH (21:38)
[2022-11-15] MEDS: GABAPENTIN 100 MG CAP PO SCH (21:39)
[2022-11-15] MEDS: TAMSULOSIN 0.4 MG SR CAP PO SCH (21:40)
[2022-11-15] MEDS: TIZANIDINE 4 MG TABLET PO SCH (21:41)
[2022-11-16] MEDS: CEFAZOLIN 1 GM in NA CHLORIDE 0.9% 50 ML IVPB SCH ×2 (00:17→11:43)
[2022-11-16 03:34] LABS: Hematocrit 40.9 % (39.6-49.0)
[2022-11-16] MEDS ORDERED: POTASSIUM CHLORIDE 10 MEQ PO SCH (08:00)
[2022-11-16] MEDS ORDERED: POLYETHYL GLY 3350 17 GM/DOSE PO PRN (08:04)
[2022-11-16] MEDS ORDERED: CARBIDOPA PO SCH (09:00)
[2022-11-16] MEDS: LEVODOPA PO SCH (09:00)
[2022-11-16] MEDS: CARBIDOPA PO SCH (09:00)
[2022-11-16] MEDS: METOPROLOL XL 25 MG TAB PO SCH (09:00)
[2022-11-16] MEDS ORDERED: ENOXAPARIN 40 MG/0.4 ML SQ SCH (09:00)
[2022-11-16] MEDS ORDERED: LEVODOPA PO SCH (09:00)
[2022-11-16] MEDS: VITAMIN D 5,000 UNIT CAP PO SCH (11:43)
[2022-11-16] MEDS: FUROSEMIDE 20 MG TABLET PO SCH ×2 (11:44→21:53)
[2022-11-16] MEDS: APIXABAN 5 MG TABLET PO SCH ×2 (11:44→21:52)
[2022-11-16] MEDS: GABAPENTIN 100 MG CAP PO SCH ×2 (11:45→21:53)
[2022-11-16] MEDS: POTASSIUM CL SA 10 MEQ TAB PO SCH ×2 (12:22→17:16)
--- NOTE | 2022-11-16 21:27 | P.PN ---
Subjective Date of Service: 11/16/22 Chief Complaint: HIP SURGERY Subjective: Improving HE IS NOT ABLE TO URINATE OR HAVE BM. HE REFUSES BOTH ZARAGOZA AND ENEMA. HE IS STABLE OTHERWISE. Review of Systems 10-point ROS is otherwise unremarkable General: Weakness Physical Examination - Vital Signs Temperature: 97.0 F Blood Pressure: 102/62 Pulse: 86 Respirations: 16 Pulse Ox (%): 97 - Physical Exam General: Oriented x3, Mild distress HEENT: Atraumatic, PERRLA, EOMI Neck: Supple, JVD not distended Respiratory: Clear to auscultation bilaterally, Normal air movement Cardiovascular: Regular rate/rhythm, Normal S1 S2 Gastrointestinal: Normal bowel sounds, No tenderness Musculoskeletal: No tenderness Integumentary: No rashes Neurological: Normal speech, Normal tone, Normal affect Lymphatics: No axilla or inguinal lymphadenopathy - Studies Laboratory Data (last 24 hrs) 11/16/22 02:59: Hgb 13.2 L, Hct 40.9 Medications List Reviewed: Yes Assessment And Plan - Current Problems (Diagnosis) (1) Hip joint replacement status Current Visit: Yes Status: Chronic Plan: PT CONSULT REHAB CONSULT HE GETS HALLUCINATES WITH NARCOTICS AND REFUSED TO TAKE NORCO TRY FENTANYL IF IT WORKS. ELIQUIS CONTINUE HE TAKES THIS FOR A FIB. AIR MATTRESS. PT HE MAY GO TO REHAB IN AM. Qualifiers: Laterality: left Qualified Code(s): Z96.642 - Presence of left artificial hip joint (2) Venous stasis ulcer Current Visit: Yes Status: Chronic Plan: STIMULEN POWDER AND COBAN LIGHT (3) Bladder cancer Current Visit: Yes Status: Chronic (4) History of atrial fibrillation Current Visit: Yes Status: Chronic Plan: STABLE ON AC ALREADY
[2022-11-16] MEDS: TAMSULOSIN 0.4 MG SR CAP PO SCH (21:52)
[2022-11-16] MEDS: TIZANIDINE 4 MG TABLET PO SCH (21:52)
[2022-11-17 03:47] LABS: Hematocrit 38.5 % (39.6-49.0)
[2022-11-17] MEDS: POTASSIUM CL SA 10 MEQ TAB PO SCH (08:00)
[2022-11-17 08:43] VITALS: BP 131/63; TEMP 97.7
[2022-11-17] MEDS: CARBIDOPA PO SCH (09:00)
[2022-11-17] MEDS ORDERED: FUROSEMIDE 20 MG TABLET PO SCH (09:00)
[2022-11-17] MEDS: LEVODOPA PO SCH (09:00)
[2022-11-17] MEDS ORDERED: ACETAMINOPHEN 325 MG TABLET PO PRN (09:49)
[2022-11-17] MEDS ORDERED: INFLUENZA VACCINE (for 6+ mo) 0.5 ML DOSE IMVAC ONE (10:00)
[2022-11-17] MEDS ORDERED: PNEUMOCOCCAL VACCINE 0.5 ML IMVAC ONE (10:00)
[2022-11-17 10:08] VITALS: O2SAT 98
[2022-11-17] MEDS: METOPROLOL XL 25 MG TAB PO SCH (10:11)
[2022-11-17] MEDS: APIXABAN 5 MG TABLET PO SCH (10:12)
[2022-11-17] MEDS: VITAMIN D 5,000 UNIT CAP PO SCH (10:12)
[2022-11-17] MEDS: GABAPENTIN 100 MG CAP PO SCH (10:12)
--- NOTE | 2022-11-17 21:20 | P.DS ---
Admission Date: 11/15/22 Discharge Date: 11/17/22 Disposition: TRANSFER TO INPATIENT REHAB Reason for Admission: HIP SURGERY - Problems (1) Hip joint replacement status Status: Chronic Qualifiers: Laterality: left Qualified Code(s): Z96.642 - Presence of left artificial hip joint (2) Venous stasis ulcer Status: Chronic (3) Bladder cancer Status: Chronic (4) History of atrial fibrillation Status: Chronic Brief History of Present Illness: TREVA HAS HAD SEVERE DJD OF L HIP, HAS BLADDER CANCER WITH INVASION OF URETER L SIDE. HAS CHORNIC EDEMA AND ULCERS IN LEGS. HE NEEDED SUGERY HE HAS HAD SEVERE PAIN IN L HIP. HE IS ALREADY BETTER WITH PAIN TODAY JUST AFTER SURGERY Hospital Course: TREVA WENT THROUGH L HIP REPLACEMENT. HE IS STABLE. HE WILL NOW GO TO REHAB FOR PT. HIS BLADDER CANCER IS TAKEN CARE BY DR. MENDEZ. Vital Signs/Physical Exam: Temp Pulse Resp BP Pulse Ox 97.7 F 86 18 131/63 98 11/17/22 08:00 11/17/22 10:11 11/17/22 08:00 11/17/22 10:11 11/17/22 08:00 Laboratory Data at Discharge: WBC 6.60 K/uL (4.3-10.9) 11/11/22 10:25 Hgb 12.6 g/dL (13.6-17.9) L 11/17/22 03:14 Hct 38.5 % (39.6-49.0) L 11/17/22 03:14 Plt Count 179 K/uL (152-406) 11/11/22 10:25 PT 9.8 SECONDS (9.5-12.5) 11/11/22 10:25 INR 0.89 11/11/22 10:25 APTT 27.6 SECONDS (24.3-36.9) 11/11/22 10:25 Sodium 140 mmol/L (136-145) 11/11/22 10:25 Potassium 4.3 mmol/L (3.5-5.1) 11/11/22 10:25 BUN 18 mg/dL (7-18) 11/11/22 10:25 Creatinine 1.15 mg/dL (0.70-1.30) 11/11/22 10:25 Glucose 90 mg/dL (74-106) 11/11/22 10:25 Total Bilirubin 0.6 mg/dL (0.2-1.0) 11/11/22 10:25 AST 21 U/L (15-37) 11/11/22 10:25 ALT 21 U/L (16-61) 11/11/22 10:25 Alkaline Phosphatase 42 U/L (45-117) L 11/11/22 10:25 Home Medications: Carbidopa/Levodopa [Carbidopa-Levo ER 50-200 Tab] 1 tab PO DAILY 12/11/21 Gabapentin 100 mg PO SEECOM 03/24/22 Tamsulosin [Flomax*] 0.4 mg PO BEDTIME #90 cap 03/29/22 predniSONE [Deltasone*] 10 mg PO DAILY 05/18/22 Cholecalciferol (Vitamin D3) [Vitamin D 5,000 IU Cap*] 5,000 unit PO DAILY #30 cap 05/25/22 Metoprolol Succinate 75 mg PO DAILY 06/22/22 Apixaban [Eliquis] 5 mg PO BID 07/27/22 Furosemide [Lasix] 20 mg PO DAILY 07/27/22 Tizanidine HCl [Zanaflex] 1 tab PO BEDTIME 10/27/22 Amox/Clavulanate [Augmentin 875-125 Tab] 875 mg PO BID #14 tab 11/01/22 Acetaminophen [Acetaminophen Extra Strength] 500 mg PO PRN PRN 11/11/22 Meclizine HCl 25 mg PO DAILYPRN PRN 11/11/22 Potassium Chloride [Klor-Con M10] 10 meq PO BIDWM 11/11/22 Followup: Talib Montesinos MD [ACTIVE - CAN ADMIT] -
== END 2022-11-17 11:00 | DRG 470 ==
LOC: OR 07:12 → 2ND 12:11
PROVIDERS: ADMIT Orthopaedic Surgery; ATTEND Orthopaedic Surgery
PROC: 0SRB01Z Replacement of Left Hip Joint with Metal Synthetic Substitute, Open Approach (ICD-10-PCS; principal; 2022-11-15 08:30)
DX: M16.12 Unilateral primary osteoarthritis, left hip (principal); I48.20 Chronic atrial fibrillation, unspecified; C67.9 Malignant neoplasm of bladder, unspecified; I10 Essential (primary) hypertension; I83.009 Varicose veins of unspecified lower extremity with ulcer of unspecified site; Z23 Encounter for immunization; Z88.5 Allergy status to narcotic agent; Z88.8 Allergy status to other drugs, medicaments and biological substances; Z79.52 Long term (current) use of systemic steroids; Z85.46 Personal history of malignant neoplasm of prostate; Z79.01 Long term (current) use of anticoagulants; Z79.899 Other long term (current) drug therapy; Z85.038 Personal history of other malignant neoplasm of large intestine; Z87.891 Personal history of nicotine dependence; Z20.822 Contact with and (suspected) exposure to COVID-19
CPT/HCPCS: 36415; 71046; 80053; 81001; 82947; 85014; 85018; 85025; 85610; 85730; 86850; 86900; 86901; 87086; 87088; 87811; 88305; 88311; 90471; 90732; 97110; 97116; 97161; 97530; A4216; A6010; J0690; J1100; J2001; J2250; J2370; J2405; J2704; J2710; J3010; J7030; Q2035

== ENCOUNTER 2022-11-17 11:15 | Inpatient (IN) | payer OTHER ==
--- OUTSIDE RECORDS SUMMARY | 2022-11-17 11:30 | XMS REPORT | Continuity of Care Document ---
:1940 Author Organization [facility] t Address [address] [facility] [address] [place] [address] Care Team Providers Name Role Phone SHARPLESS [...] Attending Clinician Fidel Gonzalez MD Attending Clinician [phone] Andrew Neil MD Attending Clinician ANDREW NEIL Attending Clinician Unavailable Jason Staley MD Attending Clinician Zach Gould Attending Clinician [phone] BREANNA MEANS Attending Clinician Unavailable Lenard TOVAR, Saul Nguyen Attending Clinician Unavailable Breanna Means MD Attending Clinician Lenard TOVAR, Lorri Daley Attending Clinician Unavailable Alannah PT, Elena Stringer Attending Clinician Unavailable Doctor Unassigned, Acacia Villas Attending Clinician Unavailable Nurse, Adc Pob Immunization [...] Unavailable ASTRID JENKINS Attending Clinician Unavailable 2, [facility] Attending Clinician Unavailable BRENDAN HALL Attending [...] Clinician Barney Naiduya S Attending Clinician Efe Pguh MD Attending Clinician DENNY KRISHNAN Attending Clinician Unavailable DIMA REA Attending Clinician Unavailable CHRIS LAZARO Admitting Clinician Unavailable MILAD MENDEZ Admitting Clinician Unavailable FIDEL GONZALEZ Admitting Clinician Unavailable Zach Gould Admitting Clinician CHRIS BURGOS Admitting Clinician Unavailable JASON STALEY Admitting Clinician Unavailable Efe Pugh MD Admitting Clinician Payers Payer Name Policy Type Policy Number Effective Date Expiration Date Ally cm MEDICARE A B [id number] 2005 00:00:00 GENERIC MEDICARE [id number] 2015 SUPPLEMENT 00:00:00 MEDICARE PART A \\T\\ [id number] 2005 B 00:00:00 COMMERCIAL [id number] 2010 NON-CONTRACT 00:00:00 GENERIC MEDICARE PART A \\T\\ [id number] B - MEDICARE MEDIGAP-GENERIC - [id number] 2010 GENERIC PAYOR 00:00:00 AAR MEDICARE [id number] SUPPLEMENT PLAN - [facility] [id number] [facility] Problems Condition Condition Condition Status Onset Resolution Last Treating Co mments Source Name Details Category Date Date Treatment Clinician Date 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 [facility] 00 [place] Hydrourete Hydrourete Disease Active B aylor r [...] 4-26 Tracy kes on on 00:00: Medical [place] Benign Benign Disease Active [facility]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 4-26 [facility] HTN [facility]N [facility] Hydronephr Hydronephr Disease Active [facility] osis osis 24 [facility] 00 [place] SEVERE SEVERE Diagnosis Active 2021-12-22 Henry hairston HYDRONEPHR HYDRONEPHR 12-12 21:45:00 l OSIS OSIS 00:00: [place] Active 12/12/2021 [facility] HYDRONEHRO HYDRONEHR Diagnosis Active 2021-12-12 David SIS OSIS 02 15:22:00 l Active 00:00: [place] 12/12/2021 [facility] Joint pain Joint pain Disease Active U nivers 3-10 ity of 00:00: [place] [facility] Abnormal Abnormal Disease Active Unive rs gait gait 3-10 ity of 00:00: [place] [facility] Muscle Muscle Disease Active Univers weakness weakness 3-10 ity of 00:00: [place] [facility] Nonrheumat Nonrheumat Disease Active 2020-0 U nivers ic aortic ic aortic 5-11 ity of valve valve 00:00: [place] insufficie insufficie 00 Me dical ncy ncy Branch PAF PAF Disease Active 2020-0 Univers (paroxysma (paroxysma 5-11 it y of l atrial l atrial 00:00: [place] fibrillati fibrillati 00 Me dical on) on) Branch 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 00:00: [place] 00 [facility] Essential Essential Disease Active 2020-0 Uni vers hypertensi hypertensi 2-01 it y of on on 00:00: [place] 00 [facility] 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 00:00: [place] [facility] Dizzy Dizzy Disease Active 2020-0 Univers spells spells 2-01 ity of 00:00: [place] 00 [facility] 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, sinus a, sinus 2-01 ity of 00:00: [place] 00 [facility] Atypical Atypical Disease Active 2020-0 Unive rs chest pain chest pain 1-30 it y of 00:00: [place] 00 [facility] 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 a 1-23 ity of 00:00: [place] [facility] Meningioma Meningioma Disease Active 2015-[address] [facility] Brain Brain Disease Active 2015-[address] [facility] tumor tumor 2-15 [facility] Center Hyperlipid Hyperlipid Disease Active 2015-09 B aylor emia emia 209 College 00:00: of 00 Medicin e BPH BPH Disease Active 2015-09 [facility] (benign (benign 10-21 College prostatic prostatic 00:00: of hyperplasi hyperplasi 00 Me dicin a) a) e History of History of Disease Active 2015-09 [facility] colon colon 10-21 [place] cancer cancer 00:00: of 00 Medicin e Meningioma Meningioma Disease Active 2015-09 [facility] 10-21 [facility] 00:00: of 00 Medicin e Tobacco Tobacco Disease Active 2015-09 [facility] abuse abuse 10-21 [facility] 00:00: of 00 Medicin e Preoperati Preoperati Disease Active 2015-09 [facility] ve ve 10-21 [place] cardiovasc cardiovasc 00:00: of ular ular 00 [...] a) a) Sleep Sleep Disease Active [facility] apnea apnea 5-14 College 00:00: of 00 Medicin e Chest Chest Disease Active [facility] tightness tightness 5-14 Юлия ege 00:00: of 00 Medicin e Muscle Muscle Disease Active 2009-09 [facility] wasting wasting 10-10 College 00:00: of 00 Medicin e Decreased Decreased Disease Active 2009-09 [place] maira appetite appetite 10-10 Colleg e 00:00: of 00 Medicin e Irritable Irritable Disease Active 2009-09 [place] maira 1-29 College 00:00: of 00 Medicin e ADENOCARCI ADENOCARCI Disease Active B aymaira NOMA, NOMA, 3-14 College COLON COLON 00:00: of 00 Medicin e DYSPNEA ON DYSPNEA ON Disease Active B roly EXERTION EXERTION 8-15 Colleg e 00:00: of 00 Medicin e COUGH COUGH Disease Active [facility] 8-15 College 00:00: of 00 Medicin e [...] Group Penile Penile Problem Common pain pain [facility] [id number] Incomplete Problem Co mmon emptying [facility] of bladder [facility] [id number] BPH loc w Problem Com mon urin [facility] obs/LUTS - [facility] [id number] Pain in Problem Comm on [id number] left [facility] testicle [facility] [id number] 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 [facility] [id number] [place] [id number] 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 [id number] Pain of Problem Commo n left femur [facility] [id number] Status Problem Common post Spirit ureteral - 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 [facility] [id number] Bladder Problem Commo n tumor [facility] [id number] Ureter, Problem Common ectopic [facility] [id number] Other Problem Common postproced [facility] ural - [facility] complicati [facility] Medical of Center genitourin asif system [id number] OAB Problem Common (overactiv Spirit e bladder) [facility] [id number] Pain, Problem Commo n [id number] joint, Spirit shoulder, - [facility] left [facility] Malignant Malignant Problem Com mon tumor of neoplasm Spirit ureter of - [facility] unspecifie [facility] Bladder Bladder Problem Common cancer cancer [facility] Allergies, Adverse Reactions, Alerts Allergy Allergy Status Severity Reaction(s) Onset Inactive Treating Comm ents Source Name Type Date Date Clinician Hydromor Propensi Active hallucina [facility] [facility] adverse 00:00: Medical reaction 00 Center s HYDROMOR Allergy Active [facility] PHONE 05-03 [facility] Center HYDROMOR DRUG Active Hallucinates Un pili PHONE INGREDI 05-03 ity of 00:00: [address] Branch delavird delavird Active Unknown Commo n ine ine [facility] hydromor hydromor Active Unknown Commo n phone phone [facility] NO KNOWN Allergy Active [facility] ALLERGIE S NO KNOWN Drug Active Univers ALLERGIE Class ity of S [place] [facility] Social History Social Habit Start Date Stop Date Quantity Comments Source History [facility] Places Medical Ce nter Lived History of Common Spirit - Tobacco Use [facility] Exposure to 2022-05-22 2022-06-01 Not sure University SARS-CoV-2 00:00:00 18:44:00 [place] [facility] (event) [facility] Alcohol intake 2022-05-03 2022-05-03 Current drinker of [facility] I [facility] kes 00:00:00 00:00:00 alcohol (finding) Medical Center History [facility] 2022-01-04 2022-01-[address] [employer] Housing Unable 00:00:00 00:00:00 Medical Ce nter to Pay History [facility] 2022-01-04 2022-01-[address] [employer] [facility] Homeless 00:00:00 00:00:00 Medical Center Last Year Tobacco use and 2022-01-03 2022-01-03 Never used [facility] exposure 00:00:00 00:00:00 [facility] Alcohol Comment 2021-07-07 2021-07-07 wine [facility] 00:00:00 00:00:00 Hospital Tobacco Comment 2016-08-25 2016-08-25 smokes pipe x6 [facility] yrs; previously Medical C enter educated Sex Assigned At [birth year] [facility] 00:00:00 00:00:00 Hospital Smoking Status Start Date Stop Date Source Former Smoker 2022-10-13 00:00:00 2022-10-13 Common Sp[facility] Medical Ce nter Social History 2021-12-12 22:47:[address] [facility] [place] [place] Occasional tobacco smoker 2012-01-25 00:00:00 [facility] Medications Ordered Filled Start Stop Current Ordering Indication Dosage Frequency Signature Comments Components Source Medication Medication Date Date Medication? Clinician (SIG) Name Name BCG BCG No 50mg Common 2-01 Spirit 00[facility]: [facility] BCG BCG No 50mg Common 2-01 [facility] 00:00: - [facility] Amoxicillin Amoxicillin 2023-0 2023- No 1{table BID [...] Common 10-06 Spirit 00:00: - [facility] BCG BCG 2023-0 No 50mg Common 10-06 Spirit 00:00: - [facility] BCG BCG 2023-0 No 50mg Common 10-06 Spirit 00:00: - [facility] BCG BCG 2023-0 No 50mg Common 09-29 Spirit 00:00: - [facility] BCG BCG 2023-0 No 50mg Common 09-29 Spirit 00:00: - [facility] BCG BCG 2023-0 No 50mg Common 09-29 Spirit 00:00: - [facility] BCG BCG 2023-0 No 50mg Common 09-29 Spirit 00:00: - [facility] Amoxicillin Amoxicillin 2023-0 2023- No 1{table BID Amoxicilli -Pot -Pot 09-19 t} n-Pot Clavulanate Clavulanate 00:00: 00:00 Clavulanat 875-125 MG 875-125 MG 00 :00 e 875-125 MG BCG BCG 2023-0 No 50mg Common 09-15 Spirit 00:00: - [facility] BCG BCG 2023-0 No 50mg Common 09-15 Spirit 00:00: - [facility] BCG BCG 2023-0 No 50mg Common 09-15 Spirit 00:00: - [facility] BCG BCG 2023-0 No 50mg Common 09-15 Spirit 00:00: - [facility] BCG BCG 2023-0 No 50mg Common 1-04 Spirit 00:00: - [facility] BCG BCG 3-0 No 50mg Common 1-04 Spirit 00:00: - [facility] BCG BCG 2021-1 No 50mg Common 2- Spirit 00:00: - [facility] BCG BCG 2021-1 No 50mg Common 2- Spirit 00:00: - [facility] BCG BCG 2021-1 No 50mg Common 2- Spirit 00:00: - [facility] BCG BCG 2021-1 No 50mg Common 2- Spirit 00:00: - [facility] BCG BCG 2021-1 No 50mg Common 2- Spirit 00:00: - [facility] BCG BCG 2021-1 No 50mg Common 2- Spirit 00:00: - [facility] BCG BCG 2021-1 No 50mg Common 2- Spirit 00:00: - [facility] BCG BCG 2021-1 No 50mg Common 2- Spirit 00:00: - [facility] BCG BCG 2021-1 No 50mg Common 2- Spirit 00:00: - [facility] BCG BCG 2021-1 No 50mg Common 2- Spirit 00:00: - [facility] BCG BCG 2021-1 No 50mg Common 2- Spirit 00:00: - [facility] BCG BCG 2021-1 No 50mg Common 2-21 Spirit 00:00: - [facility] BCG BCG 2021-1 No 50mg Common 2- Spirit 00:00: - [facility] BCG BCG 2021-1 No 50mg Common 2- Spirit 00:00: - [facility] BCG BCG 2021-1 No 50mg Common 2-21 Spirit 00:00: - [facility] Lidocaine Lidocaine 2021-1 No 10mg Com mon 2- Spirit 00:00: - [facility] Kenalog Kenalog 2021-1 No 40mg Common (Triamcinol (Triamcinol 2-07 S pirit one) one) 00:00: - [facility] Lidocaine Lidocaine 2021- No 10mg Com 10-19 Spirit 00:00: - [facility] Kenalog Kenalog 2021- No 40mg Common (Triamcinol (Triamcinol 2-07 S pirit one) one) 00:00: - [facility] Lidocaine Lidocaine 2021- No 10mg Com 10-19 Spirit 00:00: - [facility] Kenalog Kenalog 2021- No 40mg Common (Triamcinol (Triamcinol 2-07 S pirit one) one) 00:00: - [facility] Lidocaine Lidocaine 2021- No 10mg Com 10-19 Spirit 00:00: - [facility] Kenalog Kenalog 2021- No 40mg Common (Triamcinol (Triamcinol 2-07 S pirit one) one) 00:00: - [facility] Lidocaine Lidocaine 2021- No 10mg Com 10-19 Spirit 00:00: - [facility] Kenalog Kenalog 2021- No 40mg Common (Triamcinol (Triamcinol 2-07 S pirit one) one) 00:00: - [facility] Lidocaine Lidocaine 2021- No 10mg Com 10-19 Spirit 00:00: - [facility] Kenalog Kenalog 2021- No 40mg Common (Triamcinol (Triamcinol 2-07 S pirit one) one) 00:00: - [facility] Lidocaine Lidocaine 2021-1 No 10mg Com 10-19 Spirit 00:00: - [facility] Kenalog Kenalog 2021-1 No 40mg Common (Triamcinol (Triamcinol 2-07 S pirit one) one) 00:00: - [facility] Lidocaine Lidocaine 2021-1 No 10mg Com 10-19 Spirit 00:00: - [facility] Kenalog Kenalog 2021-1 No 40mg Common (Triamcinol (Triamcinol 2-07 S pirit one) one) 00:00: - [facility] Trospium Trospium 2021-3- No 1{table BID Trospium [...] A tablet DAY FOR 90 DAYS. carbidopa-l 2021-09- No 1{tbl} Q.5D TAKE 1 M ethodi evodopa 0-31 10-[address] (SINEMET 00:00: 05:59 [...] 29 Center [facility]) 1 % cream famotidine 0 Yes 20mg Q.5D Take [address] (PEPCID) 20 8-25 by mouth 2 Tracy kes MG tablet 09:33: (two) Medical 29 times Center daily. metoprolol 0 Yes hypertensio 50mg QD Take 50 mg [...] topically Kristopher es E 09:33: daily. Medical (FITHIANDENE, 29 [facility]) 1 % cream famotidine 2021-0 Yes 20mg [...] nitrate 8-25 topically [facility] (SPECTAZOLE 09:33: daily. [facility] emmanuel ) 1 % cream 29 Center tamsulosin 2021-0 Yes .4mg QD Take 0.[address] (FLOMAX) 8-25 mg by [facility] 0.4 mg Cp24 09:33: mouth Medic al 24 hr 29 nightly. Center capsule finasteride 2-0 Yes 5mg QD Take [address] (PROSCAR) 5 8-25 by mouth Luke s mg tablet 09:33: nightly. Medi emmanuel 29 Center silver 2021-0 Yes QD Apply [facility] sulfADIAZIN 8-25 topically Kristopher es E 09:33: daily. Medical (SILVADENE, 29 Center [facility]) 1 % cream famotidine 2021-0 Yes 20mg [...] topically Kristopher es E 09:33: daily. Medical (NAKITADENE, 29 [facility]) 1 % cream famotidine 2021-0 Yes 20mg Q.5D Take [address] (PEPCID) 20 8-25 by mouth 2 Tracy kes MG tablet 09:33: (two) Medical 29 times Center daily. metoprolol 2-0 Yes hypertensio 50mg QD Take [address] succinate 8-25 n by mouth [facility] (TOPROL-XL) 09:33: daily. Medi emmanuel 50 MG 24 hr 29 Center tablet predniSONE 2-0 Yes 20mg QD Take 20 mg C [...] Medicin e B 2021- No Take by [facility] 5- 05-04 mouth. Colle ge olic Acid 11:51: 00:00 of (NEPHRO-VIT 48 :00 Medicin E) 0.8 MG e TABS lisinopriL 2021- No hypertensio 20mg QD Take [address] (PRINIVIL,Z 4-26 04-26 n by mouth Kristopher es ESTRIL) 20 13:05: 00:00 daily. Medi emmanuel MG tablet 14 :00 [place] lisinopriL 2021- No hypertensio 20mg QD Take [address] (PRINIVIL,Z 4-26 04-26 n by mouth Kristopher es ESTRIL) 20 13:05: 00:00 daily. Medi emmanuel MG tablet 14 :00 [place] lisinopriL 2021- No hypertensio 20mg QD Take [address] (PRINIVIL,Z 4-26 04-26 n by mouth Kristopher es ESTRIL) 20 13:05: 00:00 daily. Medi memanuel MG tablet 14 :00 [place] lisinopriL 2021- No hypertensio 20mg QD Take [address] (PRINIVIL,Z 4-26 04-26 n by mouth Kristopher es ESTRIL) 20 13:05: 00:00 daily. Medi emmanuel MG tablet 14 :00 [place] lisinopriL Yes hypertensio 20mg QD Take 1 [...] doctor and have blood work repeated. lisinopriL 0 Yes hypertensio 20mg QD Take 1 CHI [...] (two) times daily for 7 days. ciprofloxac 0 2021- No 500mg Q.5D Take [address] in HCl 4-26 05-03 tablet [facility] (CIPRO) 500 00:00: 23:59 (500 mg Me dical MG tablet 00 :00 total) by Cente r mouth 2 (two) times daily for 7 days. ciprofloxac 0 2021- No 500mg Q.5D Take 1 CH [...] 1 Bayl or ne 4-18 TABLET BY [facility] (DECADRON) 00:00: MOUTH of 4 MG tablet 00 TWICE A Medic in DAY e Robaxin 500 0 Yes 500 mg = 1 Memoria mg oral 4-11 tab, PO, l tablet 19:16: QID, X 7 [place] day, # 28 tab, 0 Refill(s), Pharmacy: [id number], 180.34, cm, 12/12/21 18:09:00 CDT, Height, 94.545, kg, 12/12/21 18:09:00 CDT, Weight Robaxin 500 0 Yes 500 mg = 1 Memoria mg oral 4-11 tab, PO, l tablet 19:16: QID, X 7 [place] day, # 28 tab, 0 Refill(s), Pharmacy: [facility] #[id number], 180.34, cm, 12/12/21 18:09:00 CDT, Height, 94.545, kg, 12/12/21 18:09:00 CDT, Weight Robaxin 500 2021-0 Yes 500 mg = 1 Memoria mg oral 4-11 tab, PO, l tablet 19:16: QID, X 7 [place] day, # 28 tab, 0 Refill(s), Pharmacy: [facility] #[id number], 180.34, cm, 12/12/21 18:09:00 CDT, Height, 94.545, kg, 12/12/21 18:09:00 CDT, Weight Robaxin 500 2021-0 Yes 500 mg = 1 Memoria mg oral 4-11 tab, PO, l tablet 19:16: QID, X 7 [place] day, # 28 tab, 0 Refill(s), Pharmacy: [facility] #[id number], 180.34, cm, 12/12/21 18:09:00 CDT, Height, 94.545, kg, 12/12/21 18:09:00 CDT, Weight Robaxin 500 2021-0 Yes 500 mg = 1 Memoria mg oral 4-11 tab, PO, l tablet 19:16: QID, X 7 Fredo 00 day, # 28 tab, 0 Refill(s), Pharmacy: [id number], 180.34, cm, 12/12/21 18:09:00 CDT, Height, 94.545, kg, 12/12/21 18:09:00 CDT, Weight docusate No Notes: Memoria 4-03 (Same as: l 14:00: Colace) [place] 00 (Do Not Crush) thiamine No Notes: Memoria 4-03 (Same As: l 14:00: Vitamin [place] 00 B1) docusate No Notes: Memoria 4-03 (Same as: l 14:00: Colace) [place] 00 (Do Not Crush) thiamine No Notes: Memoria 4-03 (Same As: l 14:00: Vitamin [place] 00 B1) docusate No Notes: Memoria 4-03 [...] Memoria 4-03 (Same As: l 14:00: Vitamin [place] 00 B1) pneumococca No Notes: Sergei kristina [...] tab, PO, l tablet 22:55: Daily, 0 [place] 00 Refill(s) Metoprolol Yes 50 mg = 1 Me moria Succinate 4-02 tab, PO, l ER 50 mg 22:55: Daily, # Sunita nn oral 00 30 tab, 0 tablet, Refill(s) extended release predniSONE Yes 20 mg = 1 Me moria 20 mg oral 4-02 tab, PO, l tablet 22:55: Daily, 0 [place] 00 Refill(s) Metoprolol 0 Yes 50 mg = 1 Me moria Succinate 4-02 tab, PO, l ER 50 mg 22:55: Daily, # Sunita nn oral 00 30 tab, 0 tablet, Refill(s) extended release predniSONE 0 Yes 20 mg = 1 Me moria 20 mg oral 4-02 tab, PO, l tablet 22:55: Daily, 0 Fredo 00 Refill(s) Metoprolol 0 Yes 50 mg = 1 Me moria Succinate 4-02 tab, PO, l ER 50 mg 22:55: Daily, # Sunita nn oral 00 30 tab, 0 tablet, Refill(s) extended release predniSONE 0 Yes 20 mg = 1 Me moria 20 mg oral 4-02 tab, PO, l tablet 22:55: Daily, 0 [place] 00 Refill(s) Metoprolol 2022-0 Yes 50 mg = 1 Me moria Succinate 4-02 tab, PO, l ER 50 mg 22:55: Daily, # Sunita nn oral 00 30 tab, 0 tablet, Refill(s) extended release predniSONE 2-0 Yes 20 mg = 1 Me moria 20 mg oral 4-02 tab, PO, l tablet 22:55: Daily, 0 [place] 00 Refill(s) carbidopa-l 2022-0 Yes 1 tab, PO, Memoria evodopa 50 4-02 BID, # 60 l mg-200 mg 22:54: tab, 0 Eliot n oral 00 Refill(s) tablet, extended release lisinopril 2022-0 Yes 20 mg = 1 Me moria 20 mg oral 4-02 tab, PO, l tablet 22:54: Daily, # Fredo 00 30 tab, 0 Refill(s) lisinopril 2022-0 Yes 20 mg = 1 Me moria 20 mg oral 4-02 tab, PO, l tablet 22:54: Daily, # Fredo 00 30 tab, 0 Refill(s) carbidopa-l 2-0 Yes 1 tab, PO, Memoria evodopa 50 4-02 BID, # 60 l mg-200 mg 22:54: tab, 0 Eliot n oral 00 Refill(s) tablet, extended release lisinopril 2022-0 Yes 20 mg = 1 Me moria 20 mg oral 4-02 tab, PO, l tablet 22:54: Daily, # Fredo 00 30 tab, 0 Refill(s) carbidopa-l 2022-0 Yes 1 tab, PO, Memoria evodopa 50 4-02 BID, # 60 l mg-200 mg 22:54: tab, 0 Eliot n oral 00 Refill(s) tablet, extended release lisinopril 2022-0 Yes 20 mg = 1 Me moria 20 mg oral 4-02 tab, PO, l tablet 22:54: Daily, # Fredo 00 30 tab, 0 Refill(s) carbidopa-l 2022-0 Yes 1 tab, PO, Memoria evodopa 50 4-02 BID, # 60 l mg-200 mg 22:54: tab, 0 Eliot n oral 00 Refill(s) tablet, extended release lisinopril 2022-0 Yes 20 mg = 1 Me moria 20 mg oral 4-02 tab, PO, l tablet 22:54: Daily, # Fredo 00 30 tab, 0 Refill(s) carbidopa-l 2021-0 Yes 1 tab, PO, Memoria evodopa 50 4-02 BID, # 60 l mg-200 mg 22:54: tab, 0 Eliot n oral 00 Refill(s) tablet, extended release Eliquis 5 0 Yes 5 mg, PO, Mem oria mg [...] 4-02 Q12H, tab, l tablet 22:53: 0 [place] 00 Refill(s), For Atrial Fibrilatio n Eliquis 5 0 Yes 5 mg, PO, Mem oria mg [...] tab, PO, l tablet 22:52: BID, 0 [place] 00 Refill(s) hydrALAZINE 2021-0 Yes 50 mg = 1 M emoria 50 mg oral 4-02 tab, PO, l tablet 22:52: BID, 0 Fredo 00 Refill(s) hydrALAZINE 2021-0 Yes 50 mg = 1 M emoria 50 mg oral 4-02 tab, PO, l tablet 22:52: BID, 0 [place] 00 Refill(s) hydrALAZINE 2021-0 Yes 50 mg = 1 M emoria 50 mg oral 4-02 tab, PO, l tablet 22:52: BID, 0 Refill(s) hydrALAZINE Yes 50 mg = 1 M emoria 50 mg oral 4-02 tab, PO, l tablet 22:52: BID, 0 Refill(s) D10W 2021-0 No 125 mL, Memoria (bolus) IV 4-02 999 ml/hr, l 22:32: Route: Fredo 00 IVPB, Drug Form: INJ, kg, PRN, PRN Blood Glucose Results, Start date: 12/12/21 17:32:00 CDT, Duration: 30 day, Stop date: 01/11/22 17:31:00 CDT, Infuse over: 0.1 hr, 0 D10W 2021-0 No 125 mL, Memoria (bolus) IV 4-02 999 ml/hr, l 22:32: Route: IVPB, Drug Form: INJ, kg, PRN, PRN Blood Glucose Results, Start date: 12/12/21 17:32:00 CDT, Duration: 30 day, Stop date: 01/11/22 17:31:00 CDT, Infuse over: 0.1 hr, 0 D10W 2021-0 No 125 mL, Memoria (bolus) IV 4-02 999 ml/hr, l 22:32: Route: IVPB, Drug Form: INJ, kg, PRN, PRN Blood Glucose Results, Start date: 12/12/21 17:32:00 CDT, Duration: 30 day, Stop date: 01/11/22 17:31:00 CDT, Infuse over: 0.1 hr, 0 D10W 2021-0 No 125 mL, Memoria (bolus) IV 4-02 999 ml/hr, l 22:32: Route: IVPB, Drug Form: INJ, kg, PRN, PRN Blood Glucose Results, Start date: 12/12/21 17:32:00 CDT, Duration: 30 day, Stop date: 01/11/22 17:31:00 CDT, Infuse over: 0.1 hr, 0 D10W 2021-0 No 125 mL, Memoria (bolus) IV 4-02 999 ml/hr, l 22:32: Route: [place] 00 IVPB, Drug Form: INJ, kg, PRN, [...] 22:06: 4 gm/day. (Same as: Tylenol) Dextrose 2021-0 No 25 mL, Memoria 50% Syringe 12-12 Route: l (D50W) 22:06: IVP, kg, Fredo 00 PRN, PRN Blood Glucose Results, Start date: 12/12/21 17:06:00 CDT, Duration: 30 day, Stop date: 01/11/22 17:05:00 CDT glucagon 2021-0 No 1 mg, Memoria 12-12 Route: IM, l 22:06: Drug form: [place] 00 PDR/INJ, PRN, kg, PRN Blood Glucose [...] 12-12 not exceed l 22:06: 4 gm/day. [place] 00 (Same as: Tylenol) Dextrose No 25 mL, Memoria 50% Syringe 12-12 Route: l (D50W) 22:06: IVP, kg, [place] 00 PRN, PRN Blood Glucose Results, Start date: 12/12/21 17:06:00 CDT, Duration: 30 day, Stop date: 01/11/22 17:05:00 CDT glucagon No 1 mg, Memoria 12-12 Route: IM, l 22:06: Drug form: [place] 00 PDR/INJ, PRN, kg, PRN Blood Glucose Results, Start date: 12/12/21 17:06:00 CDT, Duration: 30 day, Stop date: 01/11/22 17:05:00 CDT, 0 ondansetron No Notes: Sergei kristina 12-12 (Same as: l 22:06: Zofran) MEDICATION WASTE Product Size: 4 mg Product Wasted: ___ mg melatonin No Notes: Memori a 12-12 (Same as: l 22:06: Melatonin) Fredo 00 acetaminoph No Notes: Do M emoria en [...] 12-12 Route: IM, l 22:06: Drug form: [place] 00 PDR/INJ, PRN, kg, PRN Blood Glucose [...] 12-12 not exceed l 22:06: 4 gm/day. [place] 00 (Same as: Tylenol) Dextrose No 25 mL, Memoria 50% Syringe 12-12 Route: l (D50W) 22:06: IVP, kg, [place] PRN, PRN Blood Glucose Results, Start date: [...] 12-12 not exceed l 22:06: 4 gm/day. [place] 00 (Same as: Tylenol) metoprolol Yes 50 mg = 1 Ba [facility] (TOPROL-XL) 4-02 tab, PO, Юлия ege 50 MG XL 00:00: Daily, # of tablet 00 30 tab, 0 Medicin Refill(s) e Carbidopa-L Yes 1 tab, PO, [facility] evodopa CR 4-02 BID, # 60 Юлия ege 50-200 MG 00:00: tab, 0 of TBCR 00 Refill(s) Medicin e predniSONE Yes TAKE 1 [facility] (DELTASONE) 3-25 TABLET BY Col lege 20 MG 00:00: MOUTH of tablet 00 EVERY Medicin MORNING e WITH FOOD GABAPENTIN 2020-09 Yes TAKE 1 Unive rs 100 mg 1-12 CAPSULE BY ity of capsule 00:00: MOUTH [place] 00 THREE Medical TIMES A Branch DAY GABAPENTIN 2020-09 Yes TAKE 1 Unive rs 100 mg 1-12 CAPSULE BY ity of capsule 00:00: MOUTH [place] 00 THREE Medical TIMES A Branch DAY [...] day for 90 days. gabapentin 2020-09 Yes Q.[id number] 3 (three) [facility] (NEURONTIN) 0-[id number] 100 mg 00:00: 3D day. Hospita capsule 00 l gabapentin 2020-09 Yes Q.[id number] 3 (three) [facility] (NEURONTIN) 0-[id number] 100 mg 00:00: 3D day. Hospita capsule 00 l gabapentin 2020-09 Yes Q.[id number] 3 (three) [facility] (NEURONTIN) 0-[id number] 100 mg 00:00: 3D day. Hospita capsule 00 l gabapentin 1-1 Yes Q.[id number] 3 (three) [facility] (NEURONTIN) 0-[id number] 100 mg 00:00: 3D day. Hospita capsule 00 l hydrALAZINE 1-0 Yes Q.5D 2 (two) Met hodi (APRESOLINE 9-[address] ) 50 MG 00:00: day. Hospita tablet 00 l hydrALAZINE 2021-0 Yes 50 mg = 1 B aylor (APRESOLINE 9-22 tab, PO, Юляи ege ) 50 MG 00:00: BID, 0 of tablet 00 Refill(s) Medicin e hydrALAZINE 1-0 Yes Q.5D 2 (two) Met hodi (APRESOLINE 9-[address] ) 50 MG 00:00: day. Hospita tablet 00 l hydrALAZINE 2021-0 Yes Q.5D 2 (two) Met hodi (APRESOLINE 9-[address] ) 50 MG 00:00: day. Hospita tablet 00 l hydrALAZINE 2021-0 Yes Q.5D 2 (two) Met hodi (APRESOLINE 9-[address] ) 50 MG 00:00: day. Hospita tablet 00 l tamsulosin 1-0 Yes [facility] (FLOMAX) 9-21 st 0.4 mg 00:00: Hospita capsule 00 l Tamsulosin 1-0 Yes [facility] HCl 0.4 MG 9-21 College CAPS 00:00: of 00 Medicin e tamsulosin 1-0 Yes [facility] (FLOMAX) 9-21 st 0.4 mg 00:00: Hospita capsule 00 l tamsulosin 2021-0 Yes [facility] (FLOMAX) 9-21 st 0.4 mg 00:00: Hospita capsule 00 l tamsulosin 2021-0 Yes [facility] (FLOMAX) 9-21 st 0.4 mg 00:00: Hospita capsule 00 l Eliquis 5 1-0 Yes Q.5D 2 (two) Metho di mg tablet 9-[address] 00:00: day. Hospita 00 l Eliquis 5 2021-0 Yes Q.5D 2 (two) Metho di mg tablet 9-[address] 00:00: day. Hospita 00 l Eliquis 5 2021-0 Yes Q.5D 2 (two) Metho di mg tablet 9-[address] 00:00: day. Hospita 00 l Eliquis 5 2021-0 Yes Q.5D 2 (two) Metho di mg tablet 9-[address] 00:00: day. Hospita 00 l metoprolol 2021-0 Yes QD daily. Metho di succinate 05-31 st XL 00:00: Hospita (TOPROL-XL) 00 l 50 mg 24 hr tablet lisinopriL 2021-0 Yes 20mg QD 20 mg Method i (PRINIVIL) 05-[address] 20 mg 00:00: Hospita tablet 00 l metoprolol 2021-0 Yes QD daily. Metho di succinate 05-31 st XL 00:00: Hospita (TOPROL-XL) 00 l 50 mg 24 hr tablet lisinopriL 2021-0 Yes 20mg QD 20 mg Method i (PRINIVIL) 05-[address] 20 mg 00:00: Hospita tablet 00 l metoprolol 2021-0 Yes QD daily. Metho di succinate 05-31 st XL 00:00: Hospita (TOPROL-XL) 00 l 50 mg 24 hr tablet lisinopriL 2021-0 Yes 20mg QD 20 mg Method i (PRINIVIL) 05-[address] 20 mg 00:00: Hospita tablet 00 l metoprolol 2021-0 Yes QD daily. Metho di succinate 05-31 st XL 00:00: Hospita (TOPROL-XL) 00 l 50 mg 24 hr tablet lisinopriL 2021-0 Yes 20mg QD 20 mg Method i (PRINIVIL) -[address] 20 mg 00:00: Hospita tablet 00 l carbidopa-l 2021-0 Yes [id number] 1{tbl} Take 1 Univers evodopa 1-29 tablet by ity of 25-100 mg 00:00: mouth 3 [place] tablet 00 (three) Medical times Branch daily. carbidopa-l 2021-0 Yes [id number] 1{tbl} Take 1 Univers evodopa 1-29 tablet by ity of 25-100 mg 00:00: mouth 3 [place] tablet 00 (three) Medical times Branch daily. apixaban 2021-0 Yes [id number] 5mg Take 1 Univers (ELIQUIS) [...] by mouth ity of capsule 11:32: at [place] [address] bedtime. Medical Branch finasteride 2019-09 Yes 5mg Take 5 mg U nivers 5 mg tablet 2-28 by mouth ity of 11:32: daily. [place] [address] Medical Branch nortriptyli 2019-09 Yes 50mg Take 50 mg Univers ne 50 mg 2-28 by mouth ity of capsule 11:32: at [place] [address] bedtime. Medical Branch finasteride 2019-09 Yes 5mg Take 5 mg U nivers 5 mg tablet 2-28 by mouth ity of 11:32: daily. [place] [address] Medical Branch tamsulosin 2019-09 Yes .4mg Take 0.4 Uni vers (FLOMAX) 2-28 mg by ity of 0.4 mg 24 11:28: mouth [place] hr capsule 44 daily. Medical Branch magnesium 2019-09 Yes Take by Unive rs oxide 400 2-28 mouth ity of mg 11:28: daily. [place] magnesium 44 Indication Medi emmanuel capsule s: Branch "supposed to help with my balance problem" tamsulosin 2019-09 Yes .4mg Take 0.4 Uni vers (FLOMAX) 2-28 mg by ity of 0.4 mg 24 11:28: mouth [place] hr capsule 44 daily. Medical Branch magnesium 2019-09 Yes Take by Unive rs oxide 400 2-28 mouth ity of mg 11:28: daily. [place] magnesium 44 Indication Medi emmanuel capsule s: Branch "supposed to help with my balance problem" lisinopriL 2019-09 Yes [id number] 10mg Take 1 U nivers 10 mg 2-17 tablet by ity of tablet 00:00: mouth [place] 00 daily. Medical Branch lisinopriL 2019-09 Yes [id number] 10mg Take 1 U nivers 10 mg 2-17 tablet by ity of tablet 00:00: mouth 00 daily. Medical Branch hydrALAZINE 2019-09 Yes [id number] 50mg Take 1 Univers 50 mg 0-15 tablet by ity of tablet 00:00: mouth 2 (two) Medical times Branch daily. hydrALAZINE 2019-09 Yes [id number] 50mg Take 1 Univers 50 mg 0-15 tablet by ity of tablet 00:00: mouth 2 (two) Medical times Branch daily. levetiracet 2021- No TAKE 1 [place] maira am (KEPPRA) 7-01 14-04 TABLET BY Co llege 500 MG 00:00: 00:00 MOUTH of tablet 00 :00 TWICE Medicin DAILY e finasteride 2015-09 Yes TK 1 T PO B aylor (PROSCAR) 5 2-26 QD College MG tablet 00:00: of 00 Medicin e Cyanocobala 2015-09- No 1000ug Take 1,000 [facility] min 2- mcg by [place] (VITAMIN 00:00: 00:00 mouth of B-12 CR) 00 :00 daily. Medicin 1000 MCG e TBCR sildenafil 2021- No 50mg 1 Tab. [facility] or citrate 01-29 take 1 hr Colleg e (VIAGRA) 50 00:00: 00:00 before of MG tablet 00 :00 sexual Medicin activity e ASPIRIN 81 2006-09 Yes po qd Dominick MG PO TABS 1-27 [place] 00:00: of 00 Medicin e PRED FORTE 2021- No 1 gtt os Ba ylor 1 % OP SUSP 01-17 q4 [place] 00:00: 00:00 of 00 :00 Medicin e [...] Completed Unive rsity of MODERNA VACCINE 00:00:00 [facility] SARS-COV-2 COVID-19 2021-05-20 Completed Unive rsity of MODERNA 12+ YRS 00:00:00 [facility] VACCINE Branch SARS-COV-2 COVID-19 2020-10-15 Completed Unive rsity of MODERNA VACCINE 00:00:00 [facility] SARS-COV-2 COVID-19 2020-10-15 Completed Unive rsity of MODERNA 12+ YRS 00:00:00 [facility] VACCINE Branch SARS-COV-2 COVID-19 2020-09-17 Completed Unive rsity of MODERNA VACCINE 00:00:00 [facility] SARS-COV-2 COVID-19 2020-09-17 Completed Unive rsity of MODERNA 12+ YRS 00:00:00 [facility] VACCINE Branch Pneumococcal 2019-10-05 Completed University o f Polysaccharide, 00:00:00 [facility] PPSV23 (PNEUMOVAX) Branch Pneumococcal 2019-10-05 Completed University o f Polysaccharide, 00:00:00 [facility] PPSV23 (PNEUMOVAX) Branch Influenza High Dose 2019-06-12 Completed Unive rsity of 00:00:00 [facility] Influenza High Dose 2019-06-12 Completed Unive rsity of 00:00:00 [facility] Hepatitis A Adult 2019-03-29 Completed Univers ity of 00:00:00 [facility] Hepatitis A Adult 2019-03-29 Completed Univers ity of 00:00:00 [facility] DTAP 2019-03-12 Completed University of 00:00:00 [facility] DTAP 2019-03-12 Completed University of 00:00:00 [facility] HEPATITIS A 2018-09-29 Completed University of 00:00:00 [facility] TDAP 2018-09-29 Completed University of 00:00:00 [facility] HEPATITIS A 2018-09-29 Completed University of 00:00:00 [facility] TDAP 2018-09-29 Completed University of 00:00:00 [facility] Pneumococcal 2016-08-[address] [facility] Polysaccharide 00:00:00 Medical Ce nter (Pneumovax) Pneumococcal 2016-08-[address] [facility] Polysaccharide 00:00:00 Medical Ce nter (Pneumovax) Pneumococcal 2016-08-[address] [facility] Polysaccharide 00:00:00 Medical Ce nter (Pneumovax) Pneumococcal 2016-08-[address] [facility] Polysaccharide 00:00:00 Medical Ce nter (Pneumovax) Influenza (whole) 2016-06-10 [address] [facility] 00:00:00 of Medicine Td 2016-02-09 Completed University of 00:00:00 [facility] Td 2016-02-09 Completed University of 00:00:00 [facility] Influenza (whole) 2007-07-26 Completed [facility] 00:00:00 of Medicine Influenza (whole) 2006-06-15 Completed [facility] 00:00:00 of Medicine Influenza (whole) 2006-03-09 Completed [facility] 00:00:00 of Medicine Influenza (whole) 2005-11-10 Completed [facility] 00:00:00 of Medicine Influenza (whole) 2005-08-11 Completed [facility] 00:00:00 of Medicine Vital Signs Vital Name Observation Time Observation Value Comments Source height 2022-10-13 13:00:00 71 [in_i] [facility] weight 2022-10-13 13:00:00 214 [lb_av] [facility] temperature 2022-10-13 13:00:00 98.6 [degF] [facility] bmi 2022-10-13 13:00:00 29.84 kg/m2 Common S pirit - [facility] height 2022-10-06 13:00:00 71 [in_i] Common S pirit [facility] weight 2022-10-06 13:00:00 214 [lb_av] Common S pirit [facility] temperature 2022-10-06 13:00:00 98.6 [degF] Common S pirit [facility] bmi 2022-10-06 13:00:00 29.84 kg/m2 Common S pirit [facility] oximetry 2022-10-06 13:00:00 94 % [facility] 2022-10-06 13:00:00 132 mm[Hg] [facility] - systolic [facility] blood pressure 2022-10-06 13:00:00 68 mm[Hg] [facility] - diastolic [facility] height 2022-09-15 15:15:00 71 [in_i] Common S pirit [facility] weight 2022-09-15 15:15:00 214 [lb_av] Common S pirit [facility] temperature 2022-09-15 15:15:00 98.6 [degF] [facility] 2022-09-15 15:15:00 29.84 kg/m2 [facility] oximetry 2022-09-15 15:15:00 96 % [facility] respiratory rate 2022-09-15 15:15:00 16 /min Comm on Spirit - [facility] blood pressure 2022-09-15 15:15:00 126 mm[Hg] [facility] - systolic [facility] blood pressure 2022-09-15 15:15:00 68 mm[Hg] [facility] - diastolic [facility] height 2022-09-08 13:00:00 71 [in_i] [facility] weight 2022-09-08 13:00:00 214 [lb_av] Common S pirit [facility] temperature 2022-09-08 13:00:00 97.3 [degF] Common [facility] bmi 2022-09-08 13:00:00 29.84 kg/m2 Common [facility] oximetry 2022-09-08 13:00:00 99 % Common [facility] blood pressure 2022-09-08 13:00:00 136 mm[Hg] Common [facility] - systolic [facility] blood pressure 2022-09-08 13:00:00 84 mm[Hg] Common [facility] - diastolic [facility] height 2022-09-01 13:15:00 71 [in_i] [facility] weight 2022-09-01 13:15:00 214 [lb_av] [facility] temperature 2022-09-01 13:15:00 97.8 [degF] Common [facility] bmi 2022-09-01 13:15:00 29.84 kg/m2 Common [facility] oximetry 2022-09-01 13:15:00 96 % [facility] respiratory rate 2022-09-01 13:15:00 16 /min Comm on [facility] blood pressure 2022-09-01 13:15:00 154 mm[Hg] Common [facility] - systolic [facility] blood pressure 2022-09-01 13:15:00 68 mm[Hg] Common [facility] - diastolic [facility] Systolic blood 2022-06-01 23:52:00 132 mm[Hg] Univer sity of [facility] Diastolic blood 2022-06-01 23:52:00 71 mm[Hg] Unive rsity of pressure [facility] Heart rate 2022-06-01 23:48:00 114 /min Universi ty [facility] Body temperature 2022-06-01 23:48:00 36.89 Pattie Univ ersity of [facility] Respiratory rate 2022-06-01 23:48:00 18 /min [facility] height 2022-06-01 23:48:00 180.3 cm Universi [facility] Body weight 2022-06-01 23:48:00 101.424 kg [facility] BMI 2022-06-01 23:48:00 31.19 kg/m2 [facility] Oxygen saturation in 2022-06-01 23:48:00 97 /min University Arterial blood by [facility] Pulse oximetry Branch HEIGHT 2022-05-03 07:32:00 180.3 cm WEIGHT 2022-05-03 07:32:00 100.699 kg HEIGHT 2022-05-03 07:32:00 180.3 cm WEIGHT 2022-05-03 07:32:00 100.699 kg HEIGHT 2022-05-03 07:32:00 180.3 cm WEIGHT 2022-05-03 07:32:00 100.699 kg Systolic blood 2022-01-13 16:42:00 116 mm[Hg] [facility] pressure Medicine Diastolic blood 2022-01-13 16:42:00 70 mm[Hg] [facility] pressure Medicine Heart rate 2022-01-13 16:42:00 77 /min [facility] height 2022-01-13 16:42:00 180.3 cm [facility] Body weight 2022-01-13 16:42:00 92.987 kg [facility] BMI 2022-01-13 16:42:00 28.59 kg/m2 [facility] Systolic blood 2022-05-03 17:31:00 97 mm[Hg] [facility] Diastolic blood 2022-05-03 17:31:00 50 mm[Hg] [facility] Heart rate 2022-05-03 17:31:00 96 /min [facility] Body temperature 2022-05-03 17:31:00 35.94 Pattie [facility] Respiratory rate 2022-05-03 17:31:00 18 /min [facility] Oxygen saturation in 2022-05-03 17:31:00 100 /min [facility] Arterial blood by Medical nter Pulse oximetry Body height 2022-05-03 07:32:00 180.3 cm [facility] Body weight 2022-05-03 07:32:00 100.699 kg [facility] BMI 2022-05-03 07:32:00 30.96 kg/m2 [facility] Heart Rate 2021-12-13 01:12:24 [facility] [place] Respitory Rate 2021-12-13 01:12:24 Memori al [place] Systolic (mm Hg) 2021-12-13 01:12:14 Sergei rial [place] Diastolic (mm Hg) 2021-12-13 01:12:14 Mem orial [place] Heart Rate 2021-12-13 01:12:14 [facility] [place] Temperature Oral (F) 2021-12-13 01:11:50 97.6 F [facility] Height 2021-12-12 23:09:00 180.34 cm [facility] [place] Weight 2021-12-12 23:09:00 [facility] [place] BMI Calculated 2021-12-12 23:09:00 Memori al [place] Heart Rate 2021-12-12 22:02:05 [facility] [place] Respitory Rate 2021-12-12 22:02:05 Memori al [place] Systolic (mm Hg) 2021-12-12 22:01:44 Sergei rial [place] Diastolic (mm Hg) 2021-12-12 22:01:44 Mem orial [place] Temperature Oral (F) 2021-12-12 22:00:54 97.7 F [facility] [place] Systolic blood 2021-07-07 18:25:00 123 mm[Hg] [facility] pressure Diastolic blood 2021-07-07 18:25:00 72 mm[Hg] [facility] [place] [facility] pressure Heart rate 2021-07-07 18:25:00 84 /[facility] temperature 2021-07-07 18:17:00 36.28 Pattie Meth odist [facility] Body height 2021-07-07 18:17:00 177.8 cm [facility] Body weight 2021-07-07 18:17:00 93.895 kg [facility] BMI 2021-07-07 18:17:00 29.70 kg/m2 [facility] Procedures Procedure Date / Time Performing Clinician Source Performed IR NEPHROSTOMY TUBE 2022-05-03 13:35:00 Milad Mendez [facility] - LEFT Center POCT-GLUCOSE METER 2022-05-03 09:23:00 Milad Mendez [facility] CBC W/PLT COUNT & AUTO 2022-05-03 09:17:00 Kelle Velazco [facility] Center PROTHROMBIN TIME/INR 2022-05-03 09:17:00 Kelle Velazco [facility] CBC W/PLT COUNT & AUTO 2022-05-03 09:17:00 K[facility] Vel[facility]co [facility] [place] [facility] DIFFERENTIAL Center CULTURE, 2022-01-13 13:03:54 [facility] of URINE/SENSITIVITY ON ALL Medicin e CYTOLOGY, URINE 2022-01-13 13:03:54 [facility] Medicine POCT URINALYSIS DIPSTICK 2022-01-13 00:00:00 Chris Lazaro [facility] POCT URINALYSIS DIPSTICK 2022-01-13 00:00:00 [facility] POCT-GLUCOSE METER 2022-01-05 11:47:00 Andrew Neil [facility] BASIC METABOLIC PANEL 2022-01-05 04:12:00 [facility] [place] CBC W/PLT COUNT & AUTO 2022-01-05 04:12:00 [facility] [place] CBC W/PLT COUNT & AUTO 2022-01-05 04:12:00 [facility] DIFFERENTIAL Rasendu [place] URINE CULTURE 2022-01-04 20:26:00 Andrew Neil [facility] GRAM STAIN 2022-01-04 20:26:00 Andrew Neil [facility] IR PERCUTANEOUS 2022-01-04 18:44:[address] [facility] NEPHROSTOMY TUBE Center PLACEMENT BASIC METABOLIC PANEL 2022-01-04 04:04:00 [facility] [place] CBC W/PLT COUNT & AUTO 2022-01-04 04:04:00 [facility] Rasendu Center CBC W/PLT COUNT & AUTO 2022-01-04 04:04:00 [facility] Ras[facility]u Center URINALYSIS W/ REFLEX 2022-01-03 23:04:00 [facility] URINE CULTURE Center COMPREHENSIVE METABOLIC 2022-01-03 22:44[facility] CBC W/PLT COUNT & AUTO 2022-01-03 22:44:00 [facility] PT/APTT 2022-01-03 22:44:00 [facility] PROTHROMBIN TIME/INR 2022-01-03 22:44:00 [facility] CBC W/PLT COUNT & AUTO 2022-01-03 22:44:00 [facility] MRI BRAIN WO CONTRAST 2021-07-09 19:50:00 [facility] Hernia repair [facility] Plan of Care Planned Activity Planned [...] [code = INFLUENZA Hospital VACCINE] Future Scheduled 2022-11-15 SHINGLES VACCINES (1 Met [...] Medical Center DEPRESSION SCREENING (12+)] Future Scheduled 2022-09-12 FALLS RISK SCREENING [facility] Test 00:00:00 [code = FALLS RISK Medical C enter SCREENING] Future Scheduled 2022-09-[address] [facility] Test 00:00:00 (12+) [code = Medical Center DEPRESSION SCREENING (12+)] Future Scheduled 2022-09-12 [...] Hospital VACCINE] Future Scheduled 2022-01-13 CULTURE, Ordered: [facility] Юлия ege of Test 13:03:54 URINE/SENSITIVITY ON 01/13/2022 Medicin e ALL [code = 67425-3] Future Scheduled 2022-01-13 CULTURE, Ordered: [facility] Юлия ege of Test 13:03:54 URINE/SENSITIVITY ON 01/13/2022 Medicin e ALL [code = 58882-8] Future Scheduled 2022-01-13 CYTOLOGY, URINE Ordered: [facility] C ollege of Test 13:03:54 [code = 35132] 01/13/2022 Medicine Future Scheduled 2022-01-13 CYTOLOGY, URINE Ordered: [facility] C ollege of Test 13:03:54 [code = 04374] 01/13/2022 Medicine Future Scheduled 2022-01-13 BMI FOLLOW UP PLAN [facility] of Test 12:47:39 [code = BMI FOLLOW Medicine UP PLAN] Future Scheduled 2022-01-13 ZOSTER VACCINE (1 of [facility] of Test 12:47:39 2) [code = ZOSTER Medicine VACCINE (1 of 2)] Future Scheduled 2022-01-13 MEDICARE AWV [facility] Юлия ege of Test 12:47:39 (Initial) [code = Medicine MEDICARE AWV (Initial)] Future Scheduled 2022-01-13 Pneumococcal 65+ (1 [facility] or [place] of Test 12:47:39 of 1 - PPSV23) [code Medicin e = Pneumococcal 65+ (1 of 1 - PPSV23)] Future Scheduled 2022-01-13 FLU VACCINE > 6 [facility] C ollege of Test 12:47:39 MONTHS [code = FLU Medicine VACCINE > 6 MONTHS] Future Scheduled 2022-01-13 FALL SCREEN [code = [facility] or College of Test 12:47:39 FALL SCREEN] Medicine Future Scheduled 2022-01-13 TETANUS SHOT (ADULT) [facility] of Test 12:47:39 [code = TETANUS [...] Facility Department ID 2022-11-[address] [facility] [id number] Common 16:23:03 Danny [id number] [facility] 2022-09-01 Outpatient Antoine, STLMLC STLMLC [id number] Common 13:01:02 Danny [id number] [facility] 2022-01-27 Outpatient AMBIKA LAZARO, SLE Surgery [id number] SLE 08:47:36 [facility] 2021-07-12 Emergency [facility] [id number] Univers 15:28:30 ity [facility] 2022-10-14 2022-10-14 (TEL) STLMLC STLMLC [id number] Co mmon 00:00:00 00:00:00 [facility] 2022-10-13 2022-10-13 OFFICE STLMLC STLMLC [id number] Co mmon 00:00:00 00:00:00 VISIT Spirit ESTAB PT - [facility] LEVEL 2 [facility] 2022-10-06 2022-10-06 (PROC) STLMLC STLMLC [id number] Co mmon 00:00:00 00:00:00 Procedure Spir it [facility] 2022-09-29 2022-09-29 (PROC) STLMLC STLMLC [id number] Co mmon 00:00:00 00:00:00 Procedure Spir it [facility] 2022-09-19 2022-09-19 (TEL) STLMLC STLMLC [id number] Co mmon 00:00:00 00:00:00 [facility] 2022-09-15 2022-09-15 (PROC) STLMLC STLMLC [id number] Co mmon 00:00:00 00:00:00 Procedure Spir it [facility] 2022-09-08 2022-09-08 (PROC) STLMLC STLMLC [id number] Co mmon 00:00:00 00:00:00 Procedure Spir it [facility] 2022-09-01 2022-09-01 OFFICE STLMLC STLMLC [id number] Co mmon 00:00:00 00:00:00 VISIT EST Spir it PT LEVEL 3 [facility] 2022-07-12 2022-07-12 Refheather Britton, 1.2.840.1 [id number] Methodi 00:00:00 00:00:[address] [facility] 3.430.2.7 Hospit a .3.685071 l .8 2022-07-12 2022-07-12 Manuela Britton, 1.2.840.1 [id number] 7797 Methodi 00:00:00 00:00:00 Dewayne 09147.1.1 800 [facility] 3.430.2.7 Hospit a .3.700748 l .8 2022-06-01 2022-06-01 Outpatient Brandon [facility] [id number] Univers 18:40:00 19:08:11 [facility] 2022-06-01 2022-06-01 Urgent Fuad Lam [facility] 1.2.840.114 [id number] Univers 18:40:00 19:08:11 Jose Angel [facility] 350.1.13.10 [facility] 4.2.7.2.686 Too as SONIDO?BLEA [id number] [address] MEDICAL OFFICE BUILDING 2022-05-03 2022-05-03 [facility] [id number] [facility] 14:56:33 23:59:00 [place] 2022-05-03 2022-05-03 [facility] [id number] 08:00:00 23:59:00 Encounter [facility] 2022-05-03 2022-05-03 [facility] [id number] 08:00:00 23:59:00 Encounter [facility] 2022-05-03 2022-05-03 [facility] [id number] 06:36:00 10:35:00 Encounter [facility] 2022-05-03 2022-05-03 Outpatient LONDON ESLLERS Surgery [id number] SLE 06:36:00 10:35:00 [place] 2022-05-03 2022-05-03 [facility] [id number] 06:36:00 10:35:00 Encounter [facility] 2022-05-03 2022-05-03 Surgery [facility] [id number] 07:30:00 08:00:00 [facility] 2022-05-03 2022-05-03 Surgery [facility] [id number] 07:30:00 08:00:00 [facility] 2022-05-03 2022-05-03 [facility] [id number] 00:00:00 00:00:00 Only [facility] 2022-05-03 2022-05-03 Travel [facility] [id number] [facility] 00:00[facility]00 00:00:00 [facility] 2022-05-03 2022-05-03 [facility] [id number] 00:00:00 00:00:00 Only [facility] 2022-05-03 2022-05-03 Travel [facility] [id number] [facility] 00:[facility]00 00:00:00 [facility] 2022-04-21 2022-04-21 [facility] [id number] 00:00:00 00:00:00 Orders [facility] 2022-04-21 2022-04-21 [facility] [id number] 00:00:00 00:00:00 Orders [facility] 2022-01-13 2022-01-13 Office HALIMA LAZARO 1.2.840.[id number] [place] [address] 11:15:18 11:15:18 Visit CHRIS AMBULATOR 350.1.13.21 College Y 0.2.7.2.686 of [id number] Medi jasper 300 e 2022-01-12 2022-01-12 Ambulatory nullFlavo [facility] [id number] Memoria 20:30:00 20:30:00 Pre-Reg r Urology 01 l Yazan Dorsey nn Time Share 2022-01-12 2022-01-12 Ambulatory nullFlavo [facility] [id number] Memoria 20:30:00 20:30:00 Pre-Reg r Urology 01 brant Dorsey nn Time Share 2022-01-12 2022-01-12 Outpatient VALERIA GIGIMAGALI [id number] Memoria 15:30:00 15:30:00 01 brant Fredo 2022-01-12 2022-01-12 Outpatient JustinJIMY [facility] [id number] 15:30:00 15:30:00 Jazzy L 01 2022-01-03 2022-01-05 [facility] [id number] 20:21:00 15:56:00 Encounter Fidel Gonzalez janine [facility] 2022-01-03 2022-01-05 [facility] [id number] 20:21:00 15:56:00 Encounter Fidel Gonzalez janine [facility] 2022-01-03 2022-01-05 Inpatient ER SELENA [facility] Urology [id number] SLE 20:21:00 15:56:00 2022-01-03 2022-01-03 Travel [facility] [id number] [facility] 00:00:00 00:00:00 [facility] 2022-01-03 2022-01-03 Travel [facility] [id number] [facility] 00:00:00 00:00:00 [facility] 2021-12-21 2021-12-22 Outpatient nullFlavo [facility] 41 [id number] Memoria 18:35:00 04:59:59 r Specialty 00 l [facility] 2021-12-21 2021-12-22 Outpatient nullFlavo [facility] 41 [id number] Memoria 18:35:00 04:59:59 r Specialty 00 l [facility] 2021-12-21 2021-12-21 Outpatient JustinJIMY [facility] [id number] 13:35:00 23:59:59 Jazzy L 00 2021-12-21 2021-12-21 Outpatient MHIE MHIE [id number] Memoria 13:35:00 13:35:00 00 l Fredo 2021-12-21 2021-12-21 Telephone Luís [facility] 1.2.840.114 [id number] Univers 00:00:00 00:00:00 [facility] 350.1.13.10 ity of [place] 4.2.7.2.686 Too as SONIDO?BLEA [phone] Ri dical KNEY 092 [facility] OFFICE [facility] 2021-12-12 2021-12-13 Observatio nullFlavo [facility] [id number] Memoria 21:21:00 01:15:00 n brandon Yoo 92 l [facility] 2021-12-12 2021-12-13 Observatio nullFlavo [facility] [id number] Memoria 21:21:00 01:15:00 n brandon Yoo 92 l [facility] 2021-12-12 2021-12-12 Outpatient Ajibade, MH[facility] PL [id number] 16:21:00 20:15:00 Zach 92 [place] 2021-12-02 2021-12-02 Outpatient Brandon [facility] [id number] Univers 13:00:00 13:45:36 BREANNA ewing [facility] 2021-12-02 2021-12-02 Ancillary Saul Weinberg [facility] 1.2.840. 114 [id number] Univers 13:00:00 13:45:36 Visit Breanna Means 350.1.13.10 ity [facility] [place] [phone] Ri dical NAL 179 [facility] 2021-11-27 2021-11-27 Ancillary Lorri Weinberg [facility] 1.2.840 .114 [id number] Univers 13:00:00 13:40:39 Visit Breanna Means 350.1.13.10 ity of [facility] 4.[place].7.2.[place] [phone] Ri dical NAL 179 [facility] 2021-11-25 2021-11-25 Ancillary Lorri Weinberg [facility] 1.2.840 .114 [id number] Univers 08:00:00 08:45:00 Visit Breanna Means 350.1.13.10 ity of [place] [phone] Ri dical NAL 179 [facility] 2021-11-19 2021-11-19 Ancillary Elena Jaffe [facility] 1.2.84 0.114 [id number] Univers 13:00:00 13:52:36 Visit Breanna Means 350.1.13.10 ity of [facility] [place].2.[place] [phone] Ri dical NAL 179 [facility] 2021-11-09 2021-11-09 Orders Doctor SAM 1.2.840.114 [id number] Univers 00:00:00 00:00:00 Only Unassigned, ROSI 350.1.13.10 ity of [facility] 4.2.7.2.686 Too as [phone] [address] 2021-09-13 2021-09-13 Outpatient R [facility] [id number] Univers 14:45:00 14:45:00 ity of [facility] 2021-07-24 2021-07-24 Manuela Staley [facility] 1.2.840.114 [id number] Univers 00:00:00 00:00:00 Jason SEPULVEDA 350.1.13.10 it[place] of [place] [phone] Ri dical NAL 092 [facility] 2021-07-09 2021-07-09 [facility] 1.2.840.1 [id number] Methodrose 13:19:33 23:59:00 Encounter Dewayne 45587.1.1 444 [facility] 3.430.2.7 Hospit a .3.117201 l .8 2021-07-09 2021-07-09 Travel 1.2.840.1 1.2.660.655 1055 [id number] Methodi 00:00:00 00:00:[address] 3.430.2.7 0.2.7.3.698 Ho spita .3.290650 084.8 l .8 2021-07-07 2021-07-07 Office Reba, 1.2.840.1 [id number] Methodi 13:15:00 16:08:39 Visit Dewayne 92555.1.[address] [facility] 3.430.2.7 Hospit a .3.536143 l .8 2021-07-07 2021-07-07 Travel 1.2.840.1 1.2.918.892 8032 [id number] Methodi 00:00:00 00:00:[address] 3.430.2.7 0.2.7.3.698 Ho spita .3.288106 084.8 l .8 2021-06-15 2021-06-15 Telephone Luís IDKUNAL 1.2.840.114 [id number] [facility] 00:00:00 00:00:00 [facility].13.10 [facility] 4.2.7.2.686 Too as Sonido?Blea [phone] [address] Office [facility] 2021-06-12 2021-06-12 Travel 1.2.840.1 1.2.049.197 [id number] [id number] Methodi 00:00:00 00:00:[address] 3.430.2.7 0.2.7.3.698 Ho spita .3.671217 084.8 l .8 2021-06-11 2021-06-11 Telephone Reba, 1.2.840.1 [id number] Methodi 00:00:00 00:00:[address] [facility] 3.430.2.7 Hospit a .3.817493 l .8 2021-05-202021-05-20 Imm/Inj Nurse, Adc Pob Immunization [facility] 1.2.840.114 [id number] Univers 13:10:10 13:10:33 Visit Anuel Galarza 350.1.13 .10 ity of [place] [phone] Ri dical nal 421 [facility] 2021-05-20 2021-05-20 Outpatient R MICHELLE [facility] [id number] Univers 13:10:00 13:10:00 ANUEL ewing [facility] 2021-01-29 2021-01-29 Outpatient R CLARY [facility] [id number] Univers 14:00:00 14:00:00 BREANNA ashtyn [facility] 2021-01-23 2021-01-23 Orders Doctor SAM 1.2.840.114 [id number] Univers 00:00:00 00:00:00 Only Unassigned, ROSI 350.1.13.10 ity of [facility] 4.2.7.2.686 Too as [phone] [address] 2021-01-21 2021-01-21 Ancillary Lorri Weinberg [facility] 1.2.840 .114 [id number] Univers 14:01:28 14:41:28 Visit Breanna Means 350.1.13.10 ity of [place] [phone] Ri dical nal 179 [facility] 2021-01-21 2021-01-21 Telephone Luís [facility] 1.2.840.114 [id number] Univers 00:00:00 00:00:00 Jason Sepulveda 350.1.13.10 ity of [place] [phone] Ri dical nal 092 [facility] 2021-01-19 2021-01-19 Ancillary Varsha Bey [facility] 1.2.840. 114 [id number] Univers 14:00:13 14:41:16 Visit Breanna Means 350.1.13.10 ity of [place] [phone] Ri dical nal 179 [facility] 2021-01-12 2021-01-12 Ancillary Samantha Brantley [place] 1.2.840. 114 [id number] Univers 11:08:23 11:48:23 Visit Breanna Means 350.1.13.10 it[place] of [place] [phone] Ri dical nal 179 [facility] 2021-01-06 2021-01-06 Emergency Rodriguez, [facility] 1.2.356.060 [id number] Univers 08:31:00 13:37:00 Ricco Sepulveda 350.1.13.10 i ty of [place].2.[place] [phone] [facility] 084 [place] 2021-01-06 2021-01-06 Orders Doctor SAM 1.2.840.114 [id number] Univers 00:00:00 00:00:00 Only Unassigned, ROSI 350.1.13.10 ity of [facility] 4.2.7.2.686 Too as [phone] [facility] 009 [place] 2021-01-01 2021-01-01 Ancillary Varsha Bey [facility] 1.2.840. 114 [id number] Univers 15:17:58 16:03:58 Visit Breanna Means 350.1.13.10 ity of [place].2.[place] [phone] Ri dical nal 179 [facility] 2020-12-30 2020-12-30 Ancillary Varsha Bey [facility] 1.2.840. 114 [id number] Univers 15:11:48 16:47:07 Visit Breanna Means 350.1.13.10 ity of [place] [phone] Ri dical nal 179 [facility] 2020-12-25 2020-12-26 Ancillary Varsha Bey [facility] 1.2.840. 114 [id number] Univers 15:13:25 08:42:39 Visit Breanna Means 350.1.13.10 ity of [place] [phone] Ri dical nal 179 [facility] 2020-12-23 2020-12-23 Ancillary Shirley Banks [facility] 1 .2.840.114 [id number] [facility] 11:09:48 12:04:08 Visit Breanna Means 350.1.13.10 ity of [place] [phone] Ri dical nal 179 [facility] 2020-12-18 2020-12-18 Ancillary Shirley Banks [facility] 1 .2.840.114 [id number] [facility] 09:53:00 10:42:16 Visit Breanna Means 350.1.13.10 it[place] of [place] [phone] Ri dical nal 179 [facility] 2020-12-18 2020-12-18 [facility] [id number] [facility] 10:20:00 10:20:00 BREANNA ewing [facility] 2020-12-18 2020-12-18 Orders Doctor SAM 1.2.840.114 [id number] Univers 00:00:00 00:00:00 Only Unassigned, ROSI 350.1.13.10 ity of [facility] 4.2.7.2.686 Too as [phone] [address] 2020-12-10 2020-12-10 Telephone [facility] 1.2.675.529 [id number] Univers 00:00:00 00:00:00 Brendan Sepulveda 350.1.13.10 ity of [place] [phone] Ri dical nal 059 [facility] 2020-12-08 2020-12-08 Orders Doctor SAM 1.2.840.114 [id number] Univers 00:00:00 00:00:00 Only Unassigned, ROSI 350.1.13.10 ity of [facility] 4.2.7.2.686 Too as [phone] [address] 2020-12-04 2020-12-04 Telephone Luís [facility] 1.2.840.114 [id number] Univers 00:00:00 00:00:00 Jason [place] 350.1.13.10 ity of [place] [phone] [address] 2020-11-24 2020-11-24 [facility] 1.2.840.114 [id number] Univers 15:26:22 16:30:45 Visit Jason Teran Kendra 350.1.13.10 ity of [place] [phone] [address] 2020-11-24 2020-11-24 Outpatient JASON [facility] [id number] Univers 15:40:00 15:40:00 JASON STALEY [facility] 2020-11-20 2020-11-20 Outpatient JASON [facility] [id number] Univers 13:00:00 13:00:00 JASON STALEY [facility] 2020-11-04 2020-11-04 [facility] 1.2.840.114 [id number] Univers 15:59:56 17:20:37 Visit Jason Sepulveda 350.1.13.10 ity of [place] [phone] [address] 2020-11-04 2020-11-04 Outpatient JASON [facility] [id number] Univers 16:00:00 16:00:00 JASON STALEY [facility] 2020-10-15 2020-10-15 Outpatient Brandon JENKINS [facility] [id number] Univers 11:10:00 11:10:00 ASTRID ashtyn [facility] 2020-10-10 2020-10-10 [facility] 1.2.840.114 [id number] Univers 10:45:46 14:13:12 Visit Jason Sepulveda 350.1.13.10 ity of [place]2.[place] [phone] Ri dical nal 092 [facility] 2020-10-10 2020-10-10 Outpatient Brandon POONJASON Castañeda [facility] [id number] Univers 11:00:00 11:00:00 JASON STALEY [facility] 2020-10-08 2020-10-08 [facility] 1.2.308.258 [id number] Univers 09:48:22 23:59:00 Encounter Jason Gene SPECIALTY 350.1.13.10 it[place] [phone] Ri j luis EASON [address] [place] [address] 2020-10-08 2020-10-08 Outpatient Brandon POONJASON Castañeda [facility] [id number] Univers 10:00:00 10:00:00 JASON STALEY [facility] 2020-10-08 2020-10-08 [facility] 1.2.499.408 [id number] Univers 09:47:36 09:47:36 Encounter Jason Gene LILLIAM 350.1.13.10 ity [place] [phone] Ri dicceci EASON [address] [place] [address] 2020-10-08 2020-10-08 [facility] 1.2.354.690 [id number] Univers 09:46:50 09:46:50 Encounter Jason Gene SPECIALTY 350.1.13.10 ity [place]2.[place] AT [phone] Ri dical JENARO [address] [place] [address] 2020-09-30 2020-09-30 [facility] 1.2.840.114 [id number] Univers 00:00:00 00:00:00 Jason Sepulveda 350.1.13.10 ity of [place] [phone] Ri dical nal 092 [facility] 2020-09-19 2020-09-19 Office Luís [facility] 1.2.840.114 [id number] Univers 14:31:34 15:40:16 Visit Jason Sepulveda 350.1.13.10 ity of [place] [phone] Ri dical nal 092 [facility] 2020-09-19 2020-09-19 Outpatient R JASON STALEY [facility] [id number] Univers 14:40:00 14:40:00 JASON STALEY [facility] 2020-09-17 2020-09-17 Outpatient Brandon JENKINS [facility] [id number] Univers 10:50:00 10:50:00 ASTRID [facility] 2020-09-17 2020-09-17 [facility] 1.2.840.114 [id number] Univers 00:00:00 00:00:00 Brendan Sepulveda 350.1.13.10 ity of [place] [phone] Ri dical nal 059 [facility] 2020-09-15 2020-09-15 Orders Doctor SAM 1.2.840.114 [id number] Univers 00:00:00 00:00:00 Only Unassigned, ROSI 350.1.13.10 ity of [facility] 4.2.7.2.686 Too as [phone] [address] 2020-09-10 2020-09-10 Telephone Luís [facility] 1.2.840.114 [id number] Univers 00:00:00 00:00:00 Jason Sepulveda 350.1.13.10 it[place] of [place] [phone] Ri dical nal 092 [facility] 2020-09-09 2020-09-09 Under Water Assistant 2, Adc Lab [facility] 1.2.840.114 [id number] Univers 10:13:23 10:28:23 Visit Jason Staley Kendra 350.1.13 .10 ity of [place].2.[place] [phone] Ri dical nal 353 [facility] 2020-09-09 2020-09-09 Outpatient JASON [facility] [id number] Univers 10:15:00 10:15:00 JASON STALEY itashtyn [facility] 2020-09-08 2020-09-08 Office Luís [facility] 1.2.840.114 [id number] Univers 11:02:00 12:00:27 Visit Jason Teran Kendra 350.1.13.10 ity of [place] [phone] Ri dical nal 092 [facility] 2020-09-08 2020-09-08 Outpatient R JASON STALEY [facility] [id number] Univers 11:00:00 11:00:00 JASON STALEY [facility] 2020-08-28 2020-08-28 [facility] 1.2.840.114 [id number] Univers 00:00:00 00:00:00 Brendan Sepulveda 350.1.13.10 ity of [place] [phone] Ri dical nal 059 [facility] 2020-08-20 2020-08-20 Ancillary Lenard Saul Nguyen [facility] 1.2.840. 114 [id number] Univers 14:56:11 15:36:11 Visit Breanna Means 350.1.13.10 ity of [place] [phone] Ri dical nal 179 [facility] 2020-08-20 2020-08-20 [facility]patient [facility] [id number] Univers 15:00:00 15:00:00 BREANNA weing [facility] 2020-08-06 2020-08-06 Telephone [facility] .2.840.114 [id number] Univers 00:00:00 00:00:00 Jason Sepulveda 350.1.13.10 it[place] of [place] [phone] Ri dical nal 092 [facility] 2020-08-06 2020-08-06 Orders Doctor SAM 1.2.840.114 [id number] Univers 00:00:00 00:00:00 Only Unassigned, ROSI 350.1.13.10 ity of [place] [facility] 4.2.7.2.686 Too as [phone] [address] 2020-08-05 2020-08-05 Ancillary Saul Weinberg [facility] 1.2.840. 114 [id number] Univers 16:31:08 17:11:08 Visit Breanna Means 350.1.13.10 ity of [place] [phone] Ri dical nal 179 [facility] 2020-07-29 2020-07-29 Ancillary Saul Weinberg [facility] 1.2.840. 114 [id number] Univers 15:31:18 16:11:18 Visit Breanna Means 350.1.13.10 it[place] of [place] [phone] Ri dicwi nal 179 [facility] 2020-07-28 2020-07-28 Outpatient Brandon HALL, [facility] [id number] Univers 11:20:00 11:20:00 BRENDAN itashtyn o f [facility] 2020-07-23 2020-07-23 Orders Doctor SAM 1.2.840.114 [id number] Univers 00:00:00 00:00:00 Only Unassigned, ROSI 350.1.13.10 ity of [place] [facility] 4.2.7.2.686 Too as [phone] [address] 2020-07-22 2020-07-22 Ancillary Saul Weinberg [facility] 1.2.840. 114 [id number] Univers 14:59:34 15:39:34 Visit Breanna Means 350.1.13.10 it[place] of [place] [phone] Ri dical nal 179 [facility] 2020-07-15 2020-07-15 Ancillary Lorri Weinberg [facility] 1.2.840 .114 [id number] Univers 14:30:20 15:10:20 Visit Breanna Means 350.1.13.10 it[place] of [place] [phone] Ri dical nal 179 [facility] 2020-07-15 2020-07-15 [id number] Univers 14:40:00 14:40:00 BREANNA ity of [facility] 2020-07-11 2020-07-11 Refill Rafael [facility] 1.2.840.114 [id number] Univers 00:00:00 00:00:00 Brendan Sepulveda 350.1.13.10 [place] [phone] Ri dical nal 059 [facility] 2020-07-10 2020-07-10 Ancillary Shirley Banks [facility] 1 .2.840.114 [id number] Univers 13:40:27 14:20:27 Visit Breanna Means 350.1.13.10 [place] [phone] Ri dical nal 179 [facility] 2020-07-09 2020-07-09 Ancillary Samantha Brantley [facility] 1.2.840. 114 [id number] Univers 10:32:38 11:12:38 Visit Breanna Means 350.1.13.10 [place] [phone] Ri dical nal 179 [facility] 2020-07-09 2020-07-09 Outpatient R [facility] [id number] Univers 10:40:00 10:40:00 ity of [facility] 2020-07-04 2020-07-04 Ancillary Jagdeep Elizabeth Shilrey [facility] 1 .2.840.114 [id number] Univers 11:16:46 11:56:46 Visit Breanna Means 350.1.13.10 [place] [phone] Ri dical nal [address] [facility] 2020-06-26 2020-06-26 Ancillary Lorri Weinberg [facility] 1.2.840 .114 [id number] Univers 12:03:21 12:43:21 Visit Breanna Means 350.1.13.10 [place] [phone] Ri dical nal [address] [facility] 2020-06-26 2020-06-26 Refheather Hall [facility] 1.2.840.114 [id number] Univers 00:00:00 00:00:00 Brendan Sepulveda 350.1.13.10 [place] [phone] Ri dical nal 059 [facility] 2020-06-24 2020-06-24 Ancillary Varsha Bey [facility] 1.2.840. 114 [id number] Univers 11:37:06 12:17:06 Visit Breanna Means 350.1.13.10 [place] [phone] Ri dical nal 179 [facility] 2020-06-19 2020-06-19 Ancillary Shirley Banks [facility] 1 .2.840.114 [id number] Univers 11:29:43 14:07:55 Visit Breanna Means 350.1.13.10 [place] [phone] Ri dical nal 179 [facility] 2020-06-19 2020-06-19 Outpatient R [facility] [id number] Univers 11:20:00 11:20:00 ity of [facility] 2020-06-17 2020-06-17 Ancillary Varsha Bey [facility] 1.2.840. 114 [id number] Univers 11:24:28 12:04:28 Visit Breanna Means 350.1.13.10 [place] [phone] Ri dical nal 179 [facility] 2020-06-13 2020-06-13 Orders Doctor SAM 1.2.840.114 [id number] Univers 00:00:00 00:00:00 Only Unassigned, ROSI 350.1.13.10 ity of [facility] 4.2.7.2.686 Too as [phone] [facility] [address] [place] 2020-06-11 2020-06-11 Ancillary Jagdeep Shirley Elizabeth [facility] 1 .2.840.114 [id number] Univers 14:07:48 16:06:14 Visit Breanna Means 350.1.13.10 [place] [phone] Ri dicwi nal 179 [facility] 2020-06-11 2020-06-11 [facility] [id number] Univers 14:20:00 14:20:00 BREANNA ity [facility] 2020-05-05 2020-05-05 Telephone Rafael [facility] 1.2.006.668 [id number] Univers 00:00:00 00:00:00 Brendan Sepulveda 350.1.13.10 [place] [phone] Ri dicwi nal 059 [facility] 2020-05-03 2020-05-03 Nurse SAM Figueredo 1.2.840.114 [id number] Univers 00:00:00 00:00:00 Triage Amie ARANDA 350.1.13.10 it y of HOSPITAL 4.2.7.2.686 Too as [phone] [facility] [address] [place] 2020-04-10 2020-04-10 Ancillary Jagdeep Shirley Elizabeth [facility] 1 .2.840.114 [id number] Univers 15:27:41 16:07:41 Visit Breanna Means 350.1.13.10 [place] [phone] Ri dical nal 179 [facility] 2020-04-08 2020-04-08 Ancillary Lorri Weinberg [facility] 1.2.840 .114 [id number] Univers 15:29:47 16:09:47 Visit Breanna Means 350.1.13.10 [place] [phone] Ri dical nal [address] [facility] 2020-04-04 2020-04-04 Ancillary Lorri Weinberg [facility] 1.2.840 .114 [id number] Univers 14:18:04 14:58:04 Visit Breanna Means 350.1.13.10 [place] [phone] Ri dical nal 179 [facility] 2020-04-03 2020-04-03 Manuela Hall [facility] 1.2.840.114 [id number] Univers 00:00:00 00:00:00 Brendan Sepulveda 350.1.13.10 [place] [phone] Ri dical nal 059 [facility] 2020-04-02 2020-04-02 Ancillary Lorri Weinberg [facility] 1.2.840 .114 [id number] Univers 14:59:32 15:39:32 Visit Breanna Means 350.1.13.10 [place] [phone] Ri dical nal 179 [facility] 2020-03-26 2020-03-26 Sg Staley [facility] 1.2.840.114 [id number] Univers 00:00:00 00:00:00 Jason Sepulveda 350.1.13.10 [place] [phone] Ri dical nal 092 [facility] 2020-03-20 2020-03-20 Ancillary Saul Weinberg [facility] 1.2.840. 114 [id number] Univers 15:27:33 16:07:33 Visit Breanna Means 350.1.13.10 [place] [phone] Ri dical nal [address] [facility] 2020-03-13 2020-03-13 Outpatient R [facility] [id number] Univers 15:40:00 15:40:00 ity of [facility] 2020-03-11 2020-03-11 Ancillary Lenard Saul Nguyen [facility] 1.2.840. 114 [id number] Univers 15:30:10 16:10:10 Visit Breanna Means 350.1.13.10 [place] [phone] Ri dical nal 179 [facility] 2020-03-06 2020-03-06 Ancillary Lorri Weinberg [facility] 1.2.840 .114 [id number] Univers 15:36:47 16:16:47 Visit Breanna Means 350.1.13.10 [place] [phone] Ri dical nal 179 [facility] 2020-03-03 2020-03-03 Ancillary Lenard Saul Nguyen [facility] 1.2.840. 114 [id number] Univers 15:41:05 16:21:05 Visit Breanna Means 350.1.13.10 [place] [phone] Ri dical nal 179 [facility] 2020-02-27 2020-02-28 Ancillary Lenard Saul Nguyen [facility] 1.2.840. 114 [id number] Univers 14:57:04 13:44:25 Visit Breanna Means 350.1.13.10 [place] [phone] Ri dical nal 179 [facility] 2020-02-21 2020-02-21 Ancillary Lenard Saul Nguyen [facility] 1.2.840. 114 [id number] Univers 14:15:09 14:55:09 Visit Breanna Means 350.1.13.10 [place] [phone] Ri dical nal 179 [facility] 2020-02-18 2020-02-18 Ancillary Saul Weinberg [facility] 1.2.840. 114 [id number] Univers 14:10:56 14:50:56 Visit Breanna Means 350.1.13.10 [place] [phone] Ri dical nal 179 [facility] 2020-02-13 2020-02-13 Ancillary Shirley Banks [facility] 1 .2.840.114 [id number] Univers 13:40:00 14:24:13 Visit Breanna Means 350.1.13.10 [place] [phone] Ri dical nal 179 [facility] 2020-02-11 2020-02-11 Outpatient R CLARY [facility] [id number] [facility] 15:20:00 15:20:00 BREANNA ity of [facility] 2020-02-08 2020-02-08 Ancillary Shirley Banks [facility] 1 .2.840.114 [id number] Univers 13:04:37 14:04:37 Visit Breanna Means 350.1.13.10 [place] [phone] Ri dical nal 179 [facility] 2020-02-06 2020-02-06 Ancillary Lorri Weinberg [facility] 1.2.840 .114 [id number] Univers 13:02:54 14:02:54 Visit Breanna Means 350.1.13.10 [place] [phone] Ri dical nal 179 [facility] 2020-02-06 2020-02-06 Telephone Clary [facility] 1.2.840.114 [id number] Univers 00:00:00 00:00:00 Breanna [facility] 350.1.13.10 it y of Surgical 4.2.7.2.686 Too as Specialti [phone] Ri dical es 198 [facility] 2020-02-05 2020-02-05 Telephone Rafael [facility] 1.2.192.279 [id number] Univers 00:00:00 00:00:00 Brendan [place] 350.1.13.10 [place] [phone] Ri dical nal [address] [facility] 2020-01-31 2020-01-31 [facility] 1.2.385.234 [id number] Univers 13:13:50 14:01:29 Visit Breanna Vitale [facility] 350.1.13.10 it y of Surgical 4.2.7.2.686 Too as Specialti [phone] Ri dical es 198 [facility] 2020-01-31 2020-01-31 [facility] 1.2.840.114 [id number] Univers 08:43:00 08:43:00 Encounter Chris [place] 350.1.13.10 [place] [phone] [address] 2020-01-31 2020-01-31 [facility] 1.2.840.114 [id number] Univers 08:43:00 08:43:00 Encounter Chris [place] 350.1.13.10 [place] [phone] [address] 2020-01-31 2020-01-31 Outpatient R [facility] [id number] Univers 08:42:11 08:42:00 CHRIS ity of [facility] 2020-01-31 2020-01-31 [facility] 1.2.840.114 [id number] Univers 08:42:00 08:42:00 Encounter Chris [place] 350.1.13.10 [place] [phone] [address] 2020-01-31 2020-01-31 [facility] 1.2.840.114 [id number] Univers 08:42:00 08:42:00 Encounter Chris [place] 350.1.13.10 [place] [phone] [address] 2020-01-31 2020-01-31 Telephone [facility] 1.2.497.516 [id number] Univers 00:00:00 00:00:00 Gene Mann Kendra 350.1.13.10 [place] [phone] Ri dical nal 059 [facility] 2020-01-29 2020-01-29 Ancillary Jagdeep Shirley Elizabeth [facility] 1 .2.840.114 [id number] Univers 13:41:12 14:41:12 Visit Breanna Means 350.1.13.10 [place] [phone] Ri dicwi nal 179 [facility] 2020-01-29 2020-01-29 Outpatient R [facility] [id number] Univers 13:00:00 13:00:00 BREANNA ewing [facility] 2020-01-21 2020-01-21 [facility] [id number] Univers 11:40:00 11:40:00 BRENDAN ewing o f [facility] 2020-01-21 2020-01-21 Telemedici [facility] 1.2.840.114 [id number] Univers 08:09:01 08:29:01 ne Visit Brendan Sepulveda 350.1.13.10 [place] [phone] Ri dical nal 059 [facility] 2020-01-18 2020-01-18 Office [facility] 1.2.840.114 [id number] Univers 09:02:21 09:34:47 Visit [facility] 350.1.13.10 it y of Surgical 4.2.7.2.686 Too as Specialti [phone] Ri dical es 198 [facility] 2020-01-18 2020-01-18 Outpatient [facility] [id number] Univers 09:15:00 09:15:00 MARIANA ewing [facility] 2020-01-13 2020-01-13 [facility] 1.2.840.114 [id number] Univers 00:00:00 00:00:00 Brendan [place] 350.1.13.10 [place] [phone] Ri dicwi nal 9 [facility] 2020-01-03 2020-01-03 [facility] 1.2.840.114 [id number] Univers 00:00:00 00:00:00 Brendan [place] 350.1.13.10 [place] [phone] [facility] nal [address] [place] [address] 2019-12-20 2019-12-20 [facility] 1.2.840.114 [id number] Univers 00:00:00 00:00:00 Brendan [place] 350.1.13.10 [place] [phone] [address] 2019-12-05 2019-12-05 Telephone [facility] 1.2.840.114 [id number] [facility] 00:00:00 00:00:00 Jason Sepulveda 350.1.13.10 [place] [phone] [address] 2019-12-04 2019-12-04 Outpatient R AUBREY [facility] [id number] Univers 11:00:00 11:00:00 CHRIS ity of [facility] 2019-12-04 2019-12-04 Telemedici [facility] 1.2.840.114 [id number] Univers 10:20:22 10:40:22 ne Visit Chris [place] 350.1.13.10 [place] [phone] [address] 2019-12-04 2019-12-04 Telephone [facility] 1.2.128.873 [id number] Univers 00:00:00 00:00:00 Chris [place] 350.1.13.10 i [place] [phone] Ri dical nal 059 [facility] 2019-11-29 2019-11-29 Outpatient R JASON STALEY [facility] [id number] Univers 12:08:34 23:59:00 JASON STALEY ity of [facility] 2019-11-29 2019-11-29 [facility] 1.2.522.095 [id number] Univers 12:08:00 23:59:00 Encounter Jason Teran Kendra 350.1.13.10 [place] [phone] [facility] [address] [place] [address] 2019-10-09 2019-11-27 Office [facility] 1.2.840.114 [id number] Univers 14:55:57 08:46:19 Visit Brendan Sepulveda 350.1.13.10 [place] [phone] Ri dical nal 059 [facility] 2019-11-22 2019-11-22 [facility]ill [facility] 1.2.840.114 [id number] Univers 00:00:00 00:00:00 Brendan Sepulveda 350.1.13.10 [place] [phone] Ri dical nal 059 [facility] 2019-11-19 2019-11-19 Ancillary Shirley Banks [facility] 1 .2.840.114 [id number] Univers 14:02:31 14:42:31 Visit Breanna Means 350.1.13.10 [place] [phone] Ri dical nal 179 [facility] 2019-11-15 2019-11-15 Outpatient Brandon [facility] [id number] Univers 11:20:00 11:20:00 BREANNA ewing of [facility] 2019-11-08 2019-11-08 Ancillary Shirley Banks [facility] 1 .2.840.114 [id number] Univers 11:11:28 11:47:28 Visit Breanna Means 350.1.13.10 [place] [phone] Ri dicwi nal 179 [facility] 2019-10-19 2019-11-07 Ancillary Lorri Weinberg [facility] 1.2.840 .114 [id number] Univers 10:14:18 08:52:42 Visit Breanna Means 350.1.13.10 [place] [phone] [facility] nal 179 [facility] 2019-11-06 2019-11-06 Ancillary Shirley Banks [facility] 1 .2.840.114 [id number] [facility] 10:33:10 11:13:10 Visit Breanna Means 350.1.13.10 [place] [phone] [facility] 179 [facility] 2019-11-06 2019-11-06 [facility] [id number] Univers 10:40:00 10:40:00 BREANNA ewing [facility] 2019-11-05 2019-11-05 Refill Rafael [facility] 1.2.840.114 [id number] Univers 00:00:00 00:00:00 Brendan Sepulveda 350.1.13.10 [place] [phone] [facility] [address] [place] [address] 2019-11-05 2019-11-05 Refill Rafael [facility] 1.2.840.114 [id number] Univers 00:00:00 00:00:00 Brendan Sepulveda 350.1.13.10 [place] [phone] [facility] nal 059 [facility] 2019-11-01 2019-11-01 Ancillary Shirley Banks [facility] 1 .2.840.114 [id number] Univers 11:06:32 11:46:32 Visit Breanna Means 350.1.13.10 [place] [phone] Ri dical nal 179 [facility] 2019-10-29 2019-10-29 Ancillary Shirley Banks [facility] 1 .2.840.114 [id number] Univers 11:11:05 11:51:05 Visit Breanna Means 350.1.13.10 [place] [phone] Ri dical nal 179 [facility] 2019-10-26 2019-10-26 Ancillary Lorri Weinberg [facility] 1.2.840 .114 [id number] [facility] 10:35:15 11:26:09 Visit Breanna Means 350.1.13.10 [place] [phone] Ri dical nal 179 [facility] 2019-10-25 2019-10-25 Case SAM Ortiz 1.2.840.114 [id number] Univers 00:00:00 00:00:00 [facility] 350.1.13.10 ity of [facility] 4.2.7.2.686 Too as [phone] [address] 2019-10-25 2019-10-25 Telephone [facility] 1.2.840.114 [id number] Univers 00:00:00 00:00:00 Jason Sepulveda 350.1.13.10 [place] [phone] Ri dical nal 092 [facility] 2019-10-24 2019-10-24 Ancillary Lorri Weinberg [facility] 1.2.840 .114 [id number] Univers 11:14:15 11:54:15 Visit Breanna Means 350.1.13.10 [place] [phone] Ri dical nal 179 [facility] 2019-10-24 2019-10-24 Telephone [facility] 1.2.809.565 [id number] Univers 00:00:00 00:00:00 Brendan Sepulveda 350.1.13.10 [place] [phone] Ri dical nal 059 [facility] 2019-10-23 2019-10-23 Ancillary Lorri Weinberg [facility] 1.2.840 .114 [id number] Univers 15:30:50 16:10:50 Visit Breanna Means 350.1.13.10 [place] [phone] Ri dical nal 179 [facility] 2019-10-23 2019-10-23 Office Luís [facility] 1.2.840.114 [id number] Univers 13:32:50 14:33:50 Visit Jason Sepulveda 350.1.13.10 [place] [phone] Ri dical nal 092 [facility] 2019-09-17 2019-10-22 Ancillary Shirley Banks [facility] 1 .2.840.114 [id number] Univers 09:01:46 09:42:22 Visit Breanna Means 350.1.13.10 [place] [phone] Ri dical nal 179 [facility] 2019-10-19 2019-10-19 Orders Doctor SAM 1.2.840.114 [id number] Univers 00:00:00 00:00:00 Only Unassigned, ROSI 350.1.13.10 ity of [place] [facility] 4.2.7.2.686 Too as [phone] [facility] emmanuel [address] 2019-10-18 2019-10-18 Office Julisa [facility] 1.2.840.114 [id number] Univers 13:50:43 13:50:58 Visit Gene Sepulveda 350.1.13.10 [place] [phone] Ri dical nal 059 [facility] 2019-10-18 2019-10-18 Outpatient R JULISA [facility] [id number] Univers 10:30:00 13:50:58 SENDIL ity of [facility] 2019-10-18 2019-10-18 Telephone Rafael [facility] 1.2.680.537 [id number] Univers 00:00:00 00:00:00 Brendan Sepulveda 350.1.13.10 [place] [phone] Ri dical nal 059 [facility] 2019-10-18 2019-10-18 Orders Doctor SAM 1.2.840.114 [id number] Univers 00:00:00 00:00:00 Only Unassigned, ROSI 350.1.13.10 ity of [place] [facility] 4.2.7.2.686 Too as [phone] [address] 2019-10-15 2019-10-15 Transition Aki Levy 1.2.840.114 [id number] Univers 00:00:00 00:00:00 of Care Martha Short 350.1.13.10 it y of [place] [phone] [facility] [address] 2019-10-12 2019-10-12 Outpatient R CLARY [facility] [id number] Univers 11:20:00 11:20:00 BREANNA ewing [facility] 2019-10-09 2019-10-09 Outpatient R ARFAEL [facility] [id number] Univers 15:00:00 16:27:15 BRENDAN ewing o f [facility] 2019-10-09 2019-10-09 Ancillary Lorri Weinberg [facility] 1.2.840 .114 [id number] Univers 10:28:34 11:37:49 Visit Breanna Means 350.1.13.10 [place] [phone] Ri dical nal 179 [facility] 2019-10-08 2019-10-08 Transition Aki Lowe 1.2.840.114 [id number] Univers 00:00:00 00:00:00 of Care Yenifer Short 350.1.13.10 it [place] [phone] [facility] [address] 2019-10-04 2019-10-05 Emergency Yuliana Harley [facility] 1.2.840.1 14 [id number] Univers 16:52:17 16:50:00 Efe Pugh 350.1.13.10 [place] [phone] [facility] [address] 2019-10-03 2019-10-03 Ancillary Lorri Weinberg [facility] 1.2.840 .114 [id number] Univers 15:03:32 15:43:32 Visit Breanna Means 350.1.13.10 [place] [phone] Ri dical nal 179 [facility] 2019-09-28 2019-09-28 Ancillary Shirley Banks [facility] 1 .2.840.114 [id number] Univers 10:51:31 11:58:26 Visit Breanna Means 350.1.13.10 [place] [phone] Ri dical nal 179 [facility] 2019-09-27 2019-09-27 Ancillary Lorri Weinberg [facility] 1.2.840 .114 [id number] Univers 13:04:43 13:49:43 Visit Breanna Means 350.1.13.10 [place] [phone] Ri dical nal 179 [facility] 2019-09-27 2019-09-27 Orders Doctor SAM 1.2.840.114 [id number] Univers 00:00:00 00:00:00 Only Unassigned, ROSI 350.1.13.10 ity of [place] [facility] 4.2.7.2.686 Too as [phone] [facility] [address] 2019-09-25 2019-09-25 Ancillary Lorri Weinberg [facility] 1.2.840 .114 [id number] Univers 13:03:04 13:48:04 Visit Breanna Means 350.1.13.10 ity of [place] 4.2.7.2.686 Ofe Banks [phone] Ri dical nal 179 [facility] Results Test Description Test Time Test Comments Results Result Sour e Comments ANG, NEPHROSTOMY 2022-05-06 Reason for TUBE CHANGE, LEFT 17:22:00 Exam:->NEOPLAS M RELATED [facility] : 1940 Sex: M FINAL REPORT Ultrasound and fluoroscopically guided left nephrostomy tube placement Clinical History: Collecting system access for chemotherapy administration. Modality: Sonography and fluoroscopy Credit Card Interviewer: Mike Fischer MD. Assistant Press Operator Offset: Saul Sotelo M.D.. Sedation: Versed 3 mg [...] tract was dilated with 7 and 9 Uzbek dilators. A 8.5 Uzbek drainage catheter was placed into the left [...] of left nephrostomy tube. Signed: Mike Fischer MDReport Verified Date/Time: 05/06/2022 17:22:20 Reading Location: [address] Body Reading Room -Glucose meter 2022-05-03 09:58:14 Test Item Value Reference Range Interpretation Comme [facility] POC-Glucose Meter (test code = 107 mg/dL 70-110 : TESTED AT [facility] [address] [facility] 1538) [facility], [facility] 30: Trust Administrative Assistant/Techni raoul ID = [id number] for CAREN BLACKWELL ET Lab Interpretation (test code = Normal 41149-7) [facility]-Glucose [id number] 09:58:14 Test Item Value Reference Range Interpretation Comments POC-Glucose Meter (test 107 mg/dL 70-110 : TE STED AT [facility] code = 1538) [address] [facility], 770 30: Trust Administrative Assistant/Techni raoul ID = [id number] for CAREN BLACKWELL ET Lab Interpretation (test Normal code = 62481-5) [facility]-Glucose [id number] 09:58:14 Test Item Value Reference Range Interpretation Comments POC-Glucose Meter (test 107 mg/dL 70-110 : TE STED AT [facility] code = 1538) [address] [place] [address], 770 30: Trust Administrative Assistant/Techni raoul ID = [id number] for CAREN BLACKWELL ET Lab Interpretation (test Normal code = 47509-2) [facility]-Glucose [id number] 09:58:14 Test Item Value Reference Range Interpretation Comments POC-Glucose Meter (test 107 mg/dL 70-110 : TE STED AT [facility] code = 1538) [address] [place] [address], 770 30: Trust Administrative Assistant/Techni raoul ID = [id number] for CAREN BLACKWELL ET Lab Interpretation (test Normal code = 36988-9) [facility]-GLUCOSE [id number] 09:58:14 Test Item Value Reference Range Interpretation Comments POC-GLUCOSE METER 107 mg/dL 70-110 : TESTED A T [facility] 6720 (BEAKER) (test code = [facility] [place] [facility], 1538) [address]576: Trust Administrative Assistant/Techni raoul ID = [id number] for KIRIT LUGO CBC W/PLT COUNT & AUTO [id number] 09:44:59 Test Item Value Reference Range Interpretation [...] PERCENT (BEAKER) (test code = 2801) PROTHROMBIN [id number] 09:44:04 Test Item Value Reference Range Interpretation Comments PROTIME (BEAKER) 12.7 seconds 11.9-14.2 (test code = 759) INR (BEAKER) (test 1.01 See_Comment [Automat ed message] code = 370) The system [employer] generated this result transmitted ref erence range: <=5.90. The reference range was not used to int erpret this result as normal/abnormal . RECOMMENDED COUMADIN/WARFARIN INR THERAPY RANGESSTANDARD DOSE: 2.0 - 3.0 Includes: PROPHYLAXIS for venous thrombosis, systemic embolization; TREATMENT for venous thrombosis and/or pulmonary embolus.HIGH RISK: Target INR is 2.5-3.5 for patients with mechanical heart valves.POCT URINALYSIS [id number] 00:00:00 Test Item Value Reference Range Interpretation Comments COLOR UA (test code = 5778-6) Karon YELLOW/STRAW CLARITY UA (test code = 08257-3) Clear CLEAR GLUCOSE UA (test code = 5792-7) Negative NEGATIVE BILIRUBIN UA (test code = 5770-3) Negative NEGATIVE KETONES UA (test code = 57149-4) Negative NEGATIVE SPECIFIC GRAVITY UA (test code [...] NEGATIVE REDUCING SUBSTANCES URINE (test code = 31798-2) [facility], PERC, EXTERNAL [id number] 19:13:00Needs left percutaneous nephrostomy tube placement (NOT PCNU), due to distal obstruction in left ureter. Reason for exam:->Severe left hydronephrosisJ[facility]OLD [facility]BOLLEDO : 1940 Sex: MFINAL REPORT [...] The tract was dilated and an 8 Uzbek pigtail external nephrostomy catheter was placed over [...] Lund Verified Date/Time: 01/07/2022 19:13:35 Reading Location: [facility] P048 Angio Body Reading Room [facility] [id number] 11:43:21 Test Item Value Reference Range Interpretation Comments Result (test code = 6463-4) [facility] [id number] 11:43:21 Test Item Value Reference Range Interpretation Comments Result (test code = 6463-4) No [facility] [id number] 11:43:21 Test Item Value Reference Range Interpretation Comments Result (test code = 6463-4) No growth [facility] [id number] 11:43:21 Test Item Value Reference Range Interpretation Comments Result (test code = 6463-4) No growth [facility] [id number] 11:43:21 Test Item Value Reference Range Interpretation Comments CULTURE (BEAKER) (test code = 1095) No growth POCT-GLUCOSE [id number] 12:05:17 Test Item Value Reference Range Interpretation Comments POC-GLUCOSE METER 111 mg/dL 70-110 H : TESTED A T [facility] 6720 (BEAKER) (test code = [place], 1538) [address]: Trust Administrative Assistant/Techni raoul ID = [id number] for ANGELIA BURTON BASIC METABOLIC [id number] 05:57:55 Test Item Value Reference Range Interpretation [...] S NOT APPLICABLE FOR DIALYSIS PATIEN TS. Trust Administrative Assistant ID - PIMARCUS LCBC W/PLT COUNT & AUTO [id number] 05:37:43 Test Item Value Reference Range Interpretation [...] PERCENT (BEAKER) (test code = 2801) Gram [id number] 00:56:10 Test Item Value Reference Range Interpretation Comments Gram Stain Result (test No organisms seen code = 1123) [facility] [id number] 00:56:10 Test Item Value Reference Range Interpretation Comments Gram Stain Result (test No organisms seen code = 1123) [facility] [id number] 00:56:10 Test Item Value Reference Range Interpretation Comments Gram Stain Result (test No organisms seen code = 1123) [facility] [id number] 00:56:10 Test Item Value Reference Range Interpretation Comments Gram Stain Result (test No organisms seen code = 1123) [facility] [id number] 00:56:10 Test Item Value Reference Range Interpretation Comments GRAM STAIN RESULT (BEAKER) <1+ WBCs (test code = 1123) GRAM STAIN RESULT (BEAKER) No organisms seen (test code = 45898) BASIC METABOLIC [id number] 05:12:35 Test Item Value Reference Range Interpretation [...] S NOT APPLICABLE FOR DIALYSIS PATIEN TS. Trust Administrative Assistant ID - PIAYA LCBC W/PLT COUNT & AUTO [id number] 04:30:47 Test Item Value Reference Range Interpretation [...] = 2801) Urinalysis w/Microscopic + Reflex to [id number] 23:36:22 Test Item Value Reference Range Interpretation Comments Color, UA (test code Yellow = 5778-6) Clarity, UA (test Clear code = 5767-9) Specific [place], UA 1.043 1.001-1.035 H (test code = 5811-5) pH, UA (test code = 6.0 5.0-8.0 5803-2) Protein, UA (test 20 mg/dL Negative A code = 96524-8) Glucose, UA (test Negative Negative code = 365) Ketones, UA (test Negative Negative code = 2514-8) Bilirubin, UA (test Negative Negative code = 49200-8) Blood, UA (test code Negative Negative = 81170-4) Nitrite, UA (test Negative Negative code = 5802-4) Leukocytes, UA (test Negative Negative code = 5799-2) Urobilinogen, UA 0.2 mg/dL 0.2-1.0 (test code = 27617-1) RBC, UA (test code = 1 See_Comment [Autom ated 57897-6) message] The system which generated this result [...] Bacteria, UA (test None Seen code = 99225-2) Crystals, Urine (test None Seen code = 52341-7) Specimen Source (test code = 2795) BOB (test code = BOB) Trust Administrative Assistant ID - [auto]Trust Administrative Assistant ID - tech Lab Interpretation Abnormal (test code = 44889-1) [facility]scopic + Reflex to Culture 2022-01-03 23:36:22 Test Item Value Reference Range Interpretation Comments Color, UA (test code Yellow = 5778-6) Clarity, UA (test Clear code = 5767-9) Specific [place], UA 1.043 1.001-1.035 H (test code = 5811-5) pH, UA (test code = 6.0 5.0-8.0 5803-2) Protein, UA (test 20 mg/dL Negative A code = 75827-1) Glucose, UA (test Negative Negative code = 365) Ketones, UA (test Negative Negative code = 2514-8) Bilirubin, UA (test Negative Negative code = 01165-0) Blood, UA (test code Negative Negative = 92660-9) Nitrite, UA (test Negative Negative code = 5802-4) Leukocytes, UA (test Negative Negative code = 5799-2) Urobilinogen, UA 0.2 mg/dL 0.2-1.0 (test code = 76155-4) RBC, UA (test code = 1 See_Comment [Autom ated 03030-9) message] The system which generated this result [...] Bacteria, UA (test None Seen code = 04667-2) Crystals, Urine (test None Seen code = 67051-5) Specimen Source (test code = 2795) BOB (test code = BOB) Trust Administrative Assistant ID - [auto]Trust Administrative Assistant ID - tech Lab Interpretation Abnormal (test code = 32936-2) [facility]/Microscopic + Reflex to Culture 2022-01-03 23:36:22 Test Item Value Reference Range Interpretation Comments Color, UA (test code Yellow = 5778-6) Clarity, UA (test Clear code = 5767-9) Specific [place], UA 1.043 1.001-1.035 H (test code = 5811-5) pH, UA (test code = 6.0 5.0-8.0 5803-2) Protein, UA (test 20 mg/dL Negative A code = 32639-7) Glucose, UA (test Negative Negative code = 365) Ketones, UA (test Negative Negative code = 2514-8) Bilirubin, UA (test Negative Negative code = 68606-1) Blood, UA (test code Negative Negative = 41815-3) Nitrite, UA (test Negative Negative code = 5802-4) Leukocytes, UA (test Negative Negative code = 5799-2) Urobilinogen, UA 0.2 mg/dL 0.2-1.0 (test code = 12246-4) RBC, UA (test code = 1 See_Comment [Autom ated 75422-7) message] The system which generated this result [...] Bacteria, UA (test None Seen code = 84950-0) Crystals, Urine (test None Seen code = 93559-6) Specimen Source (test code = 2795) BOB (test code = BOB) Trust Administrative Assistant ID - [auto]Trust Administrative Assistant ID - tech Lab Interpretation Abnormal (test code = 20577-1) [facility]/Microscopic + Reflex to Culture 2022-01-03 23:36:22 Test Item Value Reference Range Interpretation Comments Color, UA (test code Yellow = 5778-6) Clarity, UA (test Clear code = 5767-9) Specific [place], UA 1.043 1.001-1.035 H (test code = 5811-5) pH, UA (test code = 6.0 5.0-8.0 5803-2) Protein, UA (test 20 mg/dL Negative A code = 40031-9) Glucose, UA (test Negative Negative code = 365) Ketones, UA (test Negative Negative code = 2514-8) Bilirubin, UA (test Negative Negative code = 07813-1) Blood, UA (test code Negative Negative = 91863-3) Nitrite, UA (test Negative Negative code = 5802-4) Leukocytes, UA (test Negative Negative code = 5799-2) Urobilinogen, UA 0.2 mg/dL 0.2-1.0 (test code = 23191-1) RBC, UA (test code = 1 See_Comment [Autom ated 80652-0) message] The system which generated this result [...] Bacteria, UA (test None Seen code = 63625-1) Crystals, Urine (test None Seen code = 17696-1) Specimen Source (test code = 2795) BOB (test code = BOB) Trust Administrative Assistant ID - [auto]Trust Administrative Assistant ID - tech Lab Interpretation Abnormal (test code = 00216-7) [facility]/ REFLEX URINE [id number] 23:36:22 Test Item Value Reference Range Interpretation [...] = 1521) SOURCE(BEAKER) (test code = 2795) Trust Administrative Assistant ID - [auto]Trust Administrative Assistant ID - techCOMPREHENSIVE METABOLIC [id number] 23:07:39 Test Item Value Reference Range Interpretation [...] S NOT APPLICABLE FOR DIALYSIS PATIEN TS. Trust Administrative Assistant ID - DBCBC W/PLT COUNT & AUTO [id number] 23:06:50 Test Item Value Reference Range Interpretation [...] 0-1 PERCENT (BEAKER) (test code = 2801) [id number] 23:01:04 Test Item Value Reference Range Interpretation [...] 2.5-3.5 for patients with mechanical heart valves.PROTHROMBIN [id number] 23:00:22 Test Item Value Reference Range Interpretation Comments PROTIME (BEAKER) 13.0 seconds 11.9-14.2 (test code = 759) INR (BEAKER) (test 1.00 See_Comment [Automat ed message] code = 370) The system [employer] generated this result transmitted ref erence range: <=5.90. The reference range was not used to int erpret this result as normal/abnormal . RECOMMENDED COUMADIN/WARFARIN INR THERAPY RANGESSTANDARD DOSE: 2.0 - 3.0 Includes: PROPHYLAXIS for venous thrombosis, systemic embolization; TREATMENT for venous thrombosis and/or pulmonary embolus.HIGH RISK: Target INR is 2.5-3.5 for patients with mechanical heart valves.URINE AND [id number] 19:16:00 Test Item Value Reference Range Interpretation Comments UA Bacteria (test code = UA Bacteria) [facility] [id number] 19:16:00 Test Item Value Reference Range Interpretation Comments UA Hyal Cast (test code = UA Hyal Cast) 0-5 [facility] AND [id number] 19:16:00 Test Item Value Reference Range Interpretation Comments UA Reflex (test code = UA Reflex) [facility]MENT [facility] [id number] 19:16:00 Test Item Value Reference Range Interpretation Comments UA Color (test code = UA Color) YELLOW [facility] [id number] 19:16:00 Test Item Value Reference Range Interpretation Comments UA Color (test code = UA Color) YELLOW [facility] [id number] 19:16:00 Test Item Value Reference Range Interpretation Comments UA Turbidity (test code = UA CLOUDY Turbidity) [facility] [id number] 19:16:00 Test Item Value Reference Range Interpretation Comments UA Turbidity (test code = UA CLOUDY Turbidity) [facility] [id number] 19:16:00 Test Item Value Reference Range Interpretation Comments UA Spec Grav (test code = UA Spec 1.016 1 1.001-1.035 Grav) [facility] [id number] 19:16:00 Test Item Value Reference Range Interpretation Comments UA pH (test code = UA pH) 6.5 1 5.0-8.0 [facility] [id number] 19:16:00 Test Item Value Reference Range Interpretation Comments UA Glucose (test code = UA Glucose) NEGATIVE [facility] [id number] 19:16:00 Test Item Value Reference Range Interpretation Comments UA Bili (test code = UA Bili) NEGATIVE [facility] [id number] 19:16:00 Test Item Value Reference Range Interpretation Comments UA Ketones (test code = UA Ketones) NEGATIVE [facility] [id number] 19:16:00 Test Item Value Reference Range Interpretation Comments UA Blood (test code = UA Blood) TRACE [facility] [id number] 19:16:00 Test Item Value Reference Range Interpretation Comments UA Protein (test code = UA Protein) [facility]ACE [facility] [id number] 19:16:00 Test Item Value Reference Range Interpretation Comments UA Nitrite (test code = UA Nitrite) NEGATIVE [facility] [id number] 19:16:00 Test Item Value Reference Range Interpretation Comments UA Leuk Est (test code = UA Leuk NEGATIVE Est) [facility] [id number] 19:16:00 Test Item Value Reference Range Interpretation Comments UA WBC (test code = UA WBC) 6-10 [facility] [id number] 19:16:00 Test Item Value Reference Range Interpretation Comments UA RBC (test code = UA RBC) 3-10 [facility] [id number] 19:16:00 Test Item Value Reference Range Interpretation Comments UA Sq Epi (test code = UA Sq Epi) 0-5 [facility] [id number] 19:16:00 Test Item Value Reference Range Interpretation Comments UA Bacteria (test code = UA Bacteria) [facility] [id number] 19:16:00 Test Item Value Reference Range Interpretation Comments UA Hyal Cast (test code = UA Hyal Cast) 0-5 [facility] [id number] 19:16:00 Test Item Value Reference Range Interpretation Comments UA Reflex (test code = UA Reflex) SEE COMMENT [facility] [id number] 19:16:00 Test Item Value Reference Range Interpretation Comments UA Spec Grav (test code = UA Spec 1.016 1 1.001-1.035 Grav) [facility] AND [id number] 19:16:00 Test Item Value Reference Range Interpretation Comments UA pH (test code = UA pH) 6.5 1 5.0-8.0 [facility] [id number] 19:16:00 Test Item Value Reference Range Interpretation Comments UA Glucose (test code = UA Glucose) NEGATIVE [facility] [id number] 19:16:00 Test Item Value Reference Range Interpretation Comments UA Bili (test code = UA Bili) NEGATIVE [facility] [id number] 19:16:00 Test Item Value Reference Range Interpretation Comments UA Ketones (test code = UA Ketones) NEGATIVE [facility] [id number] 19:16:00 Test Item Value Reference Range Interpretation Comments UA Blood (test code = UA Blood) TRACE [facility] [id number] 19:16:00 Test Item Value Reference Range Interpretation Comments UA Protein (test code = UA Protein) TRACE [facility] [id number] 19:16:00 Test Item Value Reference Range Interpretation Comments UA Nitrite (test code = UA Nitrite) NEGATIVE [facility] [id number] 19:16:00 Test Item Value Reference Range Interpretation Comments UA Leuk Est (test code = UA Leuk NEGATIVE Est) [facility] [id number] 19:16:00 Test Item Value Reference Range Interpretation Comments UA WBC (test code = UA WBC) 6-10 [facility] [id number] 19:16:00 Test Item Value Reference Range Interpretation Comments UA RBC (test code = UA RBC) 3-10 [facility] [id number] 19:16:00 Test Item Value Reference Range Interpretation Comments UA Sq Epi (test code = UA Sq Epi) 0-5 [facility] [id number] 19:16:00 Test Item Value Reference Range Interpretation Comments UA Bacteria (test code = UA Bacteria) MANY [facility] AND [id number] 19:16:00 Test Item Value Reference Range Interpretation Comments UA Hyal Cast (test code = UA Hyal Cast) 0-5 [facility] AND [id number] 19:16:00 Test Item Value Reference Range Interpretation Comments UA Reflex (test code = UA Reflex) SEE COMMENT [facility] AND [id number] 19:16:00 Test Item Value Reference Range Interpretation Comments UA Color (test code = UA Color) YELLOW [facility] AND [id number] 19:16:00 Test Item Value Reference Range Interpretation Comments UA Turbidity (test code = UA CLOUDY Turbidity) [facility] AND [id number] 19:16:00 Test Item Value Reference Range Interpretation Comments UA Spec Grav (test code = UA Spec 1.016 1 1.001-1.035 Grav) [facility] AND [id number] 19:16:00 Test Item Value Reference Range Interpretation Comments UA pH (test code = UA pH) 6.5 1 5.0-8.0 [facility] AND [id number] 19:16:00 Test Item Value Reference Range Interpretation Comments UA Glucose (test code = UA Glucose) NEGATIVE [facility] AND [id number] 19:16:00 Test Item Value Reference Range Interpretation Comments UA Bili (test code = UA Bili) NEGATIVE [facility] AND [id number] 19:16:00 Test Item Value Reference Range Interpretation Comments UA Ketones (test code = UA Ketones) NEGATIVE [facility] AND [id number] 19:16:00 Test Item Value Reference Range Interpretation Comments UA Blood (test code = UA Blood) TRACE [facility] AND [id number] 19:16:00 Test Item Value Reference Range Interpretation Comments UA Protein (test code = UA Protein) TRACE [facility] AND [id number] 19:16:00 Test Item Value Reference Range Interpretation Comments UA Nitrite (test code = UA Nitrite) NEGATIVE [facility] AND [id number] 19:16:00 Test Item Value Reference Range Interpretation Comments UA Leuk Est (test code = UA Leuk NEGATIVE Est) [facility] AND [id number] 19:16:00 Test Item Value Reference Range Interpretation Comments UA WBC (test code = UA WBC) 6-10 [facility] AND [id number] 19:16:00 Test Item Value Reference Range Interpretation Comments UA RBC (test code = UA RBC) 3-10 [facility] AND [id number] 19:16:00 Test Item Value Reference Range Interpretation Comments UA Sq Epi (test code = UA Sq Epi) 0-5 [facility] AND [id number] 19:16:00 Test Item Value Reference Range Interpretation Comments UA Bacteria (test code = UA Bacteria) MANY [facility] AND [id number] 19:16:00 Test Item Value Reference Range Interpretation Comments UA Hyal Cast (test code = UA Hyal Cast) 0-5 [facility] AND [id number] 19:16:00 Test Item Value Reference Range Interpretation Comments UA Reflex (test code = UA Reflex) SEE COMMENT [facility] AND [id number] 19:16:00 Test Item Value Reference Range Interpretation Comments UA Color (test code = UA Color) YELLOW [facility] AND [id number] 19:16:00 Test Item Value Reference Range Interpretation Comments UA Turbidity (test code = UA CLOUDY Turbidity) [facility] AND [id number] 19:16:00 Test Item Value Reference Range Interpretation Comments UA Spec Grav (test code = UA Spec 1.016 1 1.001-1.035 Grav) [facility] AND [id number] 19:16:00 Test Item Value Reference Range Interpretation Comments UA pH (test code = UA pH) 6.5 1 5.0-8.0 [facility] AND [id number] 19:16:00 Test Item Value Reference Range Interpretation Comments UA Glucose (test code = UA Glucose) NEGATIVE [facility] AND [id number] 19:16:00 Test Item Value Reference Range Interpretation Comments UA Bili (test code = UA Bili) NEGATIVE [facility] AND [id number] 19:16:00 Test Item Value Reference Range Interpretation Comments UA Ketones (test code = UA Ketones) NEGATIVE [facility] AND [id number] 19:16:00 Test Item Value Reference Range Interpretation Comments UA Blood (test code = UA Blood) [facility] [id number] 19:16:00 Test Item Value Reference Range Interpretation Comments UA Protein (test code = UA Protein) [facility] [id number] 19:16:00 Test Item Value Reference Range Interpretation Comments UA Nitrite (test code = UA Nitrite) NEGATIVE [facility] [id number] 19:16:00 Test Item Value Reference Range Interpretation Comments UA Leuk Est (test code = UA Leuk NEGATIVE Est) [facility] [id number] 19:16:00 Test Item Value Reference Range Interpretation Comments UA WBC (test code = UA WBC) 6-10 [facility] [id number] 19:16:00 Test Item Value Reference Range Interpretation Comments UA RBC (test code = UA RBC) 3-10 [facility] [id number] 19:16:00 Test Item Value Reference Range Interpretation Comments UA Sq Epi (test code = UA Sq Epi) 0-5 [facility] [id number] 19:16:00 Test Item Value Reference Range Interpretation Comments UA Bacteria (test code = UA Bacteria) [facility]ANY [facility] [id number] 19:16:00 Test Item Value Reference Range Interpretation Comments UA Hyal Cast (test code = UA Hyal Cast) 0-5 [facility] AND [id number] 19:16:00 Test Item Value Reference Range Interpretation Comments UA Reflex (test code = UA Reflex) SEE COMMENT [facility] [id number] 19:16:00 Test Item Value Reference Range Interpretation Comments UA Color (test code = UA Color) YELLOW [facility] [id number] 19:16:00 Test Item Value Reference Range Interpretation Comments UA Turbidity (test code = UA CLOUDY Turbidity) [facility] [id number] 19:16:00 Test Item Value Reference Range Interpretation Comments UA Spec Grav (test code = UA Spec 1.016 1 1.001-1.035 Grav) [facility] AND [id number] 19:16:00 Test Item Value Reference Range Interpretation Comments UA pH (test code = UA pH) 6.5 1 5.0-8.0 [facility] [id number] 19:16:00 Test Item Value Reference Range Interpretation Comments UA Glucose (test code = UA Glucose) NEGATIVE [facility] [id number] 19:16:00 Test Item Value Reference Range Interpretation Comments UA Bili (test code = UA Bili) NEGATIVE [facility] [id number] 19:16:00 Test Item Value Reference Range Interpretation Comments UA Ketones (test code = UA Ketones) NEGATIVE [facility] [id number] 19:16:00 Test Item Value Reference Range Interpretation Comments UA Blood (test code = UA Blood) [facility]ACE [facility] [id number] 19:16:00 Test Item Value Reference Range Interpretation Comments UA Protein (test code = UA Protein) [facility] [id number] 19:16:00 Test Item Value Reference Range Interpretation Comments UA Nitrite (test code = UA Nitrite) NEGATIVE [facility] [id number] 19:16:00 Test Item Value Reference Range Interpretation Comments UA Leuk Est (test code = UA Leuk NEGATIVE Est) [facility] [id number] 19:16:00 Test Item Value Reference Range Interpretation Comments UA WBC (test code = UA WBC) 6-10 [facility] [id number] 19:16:00 Test Item Value Reference Range Interpretation Comments UA RBC (test code = UA RBC) 3-10 [facility] [id number] 19:16:00 Test Item Value Reference Range Interpretation Comments UA Sq Epi (test code = UA Sq Epi) 0-5 [facility] CenterSjmlxlnOKJN-[id number] 10:40:00 Test Item Value Reference Range Interpretation Comments POC-CREATININE 0.9 mg/dL 0.6-1.3 [facility] (test [address] [facility] code = 1859) [facility] 7703 0 POC-EGFR 82 mL/min/1.73M2 (BEAKER) (test code = 1860) BASIC METABOLIC [id number] 09:21:00 Test Item Value Reference Range Interpretation [...] ESTIMATED GFR. CREATINE KINASE (CK), TOTAL AND [id number] 08:57:00 Test Item Value Reference Range Interpretation Comments CREATINE KINASE TOTAL (BEAKER) 128 U/L 29-200 (test code = 380) CREATINE KINASE-MB (BEAKER) (test 3.6 ng/mL 0.0-6.6 code = 750) CREATINE KINASE-MB INDEX (BEAKER) 2.8 % (test code = 395) Effective 07/30/2014: CK-MB Reference Range ChangeNew: 0.0-6.6 Previous: 0.0-4.9CK-MB Reference Range:<6.7 Normal6.7-10.0 Borderline>10.0 Abnormal TROPONIN [id number] 08:57:00 Test Item Value Reference Range Interpretation [...] 29 pg/mL 0-100 (test code = 700) [id number] 08:50:00 Test Item Value Reference Range Interpretation Comments MAGNESIUM (BEAKER) (test code = 2.1 mg/dL 1.6-2.6 627) [id number] 08:47:00 Test Item Value Reference Range Interpretation [...] mechanical heart valves.CBC W/PLT COUNT & AUTO [id number] 08:36:00 Test Item Value Reference Range Interpretation [...]
[2022-11-17] MEDS ORDERED: HYDROCODONE/APAP 5/325 MG TAB PO PRN (11:54)
[2022-11-17] MEDS ORDERED: MECLIZINE HCL 12.5 MG TAB PO PRN (12:14)
[2022-11-17] MEDS ORDERED: DOCUSATE NA 100 MG CAP PO PRN (12:15)
[2022-11-17] MEDS ORDERED: ONDANSETRON 4 MG (ODT) TAB PO PRN (12:21)
[2022-11-17] MEDS ORDERED: POLYETHYL GLY 3350 17 GM/DOSE PO PRN (12:30)
[2022-11-17] MEDS ORDERED: MELATONIN 3 MG TABLET PO PRN (13:28)
[2022-11-17 15:11] LABS: Specific Gravity 1.015 (1.005-1.030); Urine Bacteria None Seen /HPF (<20); Urine Bilirubin NEGATIVE (Negative); Urine Blood 3+ (OVER) (Negative); Urine Clarity Turbid (Clear); Urine Color Light-Yellow (Yellow); Urine Crystals Unidentified Few /HPF (None Seen); Urine Glucose NEGATIVE (Negative); Urine Mucus Slight /HPF (None Seen); Urine Protein 1+ (Negative); Urine RBC >50 /HPF (None Seen); Urine Urobilinogen Normal (Normal); Urine WBC Clump Rare /HPF (None Seen)
[2022-11-17] MEDS: POTASSIUM CL SA 10 MEQ TAB PO SCH (19:18)
[2022-11-17] MEDS: TAMSULOSIN 0.4 MG SR CAP PO SCH (19:18)
[2022-11-17] MEDS: CRANBERRY FRUIT EXTRACT 200 MG CAP PO SCH (19:18)
[2022-11-17] MEDS: GABAPENTIN 100 MG CAP PO SCH (19:18)
[2022-11-17] MEDS: TIZANIDINE 4 MG TABLET PO SCH (19:18)
[2022-11-17] MEDS: AMOX/K CLAV 875 MG TAB PO SCH (19:18)
[2022-11-17] MEDS: APIXABAN 5 MG TABLET PO SCH (19:19)
[2022-11-17] MEDS: DOCUSATE NA/SENNA CONC 1 TAB PO PRN (19:19)
[2022-11-18 04:36] LABS: Absolute Lymphocytes (CBC) 1.5 K/uL (0.7-4.9); Hematocrit 35.6 % (39.6-49.0); Lymphocytes % 22.8 % (15.3-44.8); MCV 99.4 fL (80-100); MPV 8.7 fL (7.6-11.3); RBC Red Blood Cell Count 3.58 M/uL (4.33-5.43)
[2022-11-18 04:56] LABS: Albumin 2.5 g/dL (3.4-5.0); Magnesium 2.3 mg/dL (1.6-2.4); Potassium 4.3 mmol/L (3.5-5.1); Prealbumin 15.9 mg/dL (20-40)
--- NOTE | 2022-11-18 05:20 | HP ---
Date of Admission: 11/17/2022 [id number] Admission History And Physical Time Of Service: 1 p.m. Chief Complaint: "I had left hip surgery." History Of Present Illness: Mr. Peralta is an 82-year-old patient who was in the hospital on November 15 for a total hip arthroplasty by Dr. Montesinos after he was discovered by Dr. 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 The patient said he had ongoing pain and was evaluated by Dr. Montesinos and the finding was as described. He has comorbid Parkinson disease, bladder cancer, chronic anemia, venous ulcer in the lower extremity, and following surgery, he has had significant difficulty recovering as he has had allergies to different pain medications and was insonate. He did have a slight decrease of his hemoglobin postoperatively, but it did not drop very significantly. He did have a hemoglobin of 13.2 on 11/16/2022. He did have urinalysis showing 3+ red blood cells. White blood cells greater than 50, total protein 2+, and that finding was consistent with his bladder cancer history. He did begin some PT and OT post surgery, but he had significant pain and did, however, receive fentanyl with some medication of the pain and was ready to begin an aggressive physical and occupational therapy and an appropriate environment, which is the inpatient rehabilitation to be medically managed. Past Medical History: Severe degenerative disease of the left hip, Parkinson disease by cancer, chronic anemia, venous ulcer in the lower extremity. Past Surgical History: Cystoscopy and TURP for bladder cancer. 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 Family History: Father had a brain tumor. Allergies: HYDROMORPHONE. Home Medications: Carbidopa/levodopa 50/200 twice daily, hydralazine 50 mg twice daily, metoprolol 50 mg daily, gabapentin 100 mg 3 times daily, Flomax 0.1 mg at bedtime, Lasix 20 mg daily, Zestril 20 mg daily, potassium 10 mEq 3 times daily, prednisone 10 mg daily. Social History: Smoked in the past. Drank alcohol occasionally. No IV drugs or cocaine. Review of Systems: Does report some pain at the surgical site, but he says it around 4/10. Mild swelling in the left lower extremity, where he had total hip arthroplasty in the left side. Otherwise, some generalized myalgias. He denies any rash, headache, weight change. No active psychiatric issues. He did have some problems with stool and has had constipation prior to coming into the hospital and after surgery. He is again on stool softeners for that. Otherwise, negative on 10- point systems review. Laboratory Studies: White blood cell count 8.7, hemoglobin 12.4. Chemistries: Sodium 139, potassium 3.1, chloride 104, carbon dioxide 27, BUN 11, creatinine 1.41, calcium is 9.0. Urinalysis 3+ blood, greater than 500 esterase, greater than 50 red blood cells, greater than 50 white blood cells. Imaging: Hip x-ray on 11/15/2022 shows left hip prosthesis is in place. Hardware is in expected location. Adjacent soft tissue gas noted. Surgical metallic instruments project over the mid femoral shaft. Surgical clips noted in the left aspect of the pelvis. Impression is a postoperative hip with no unexpected findings. Physical Examination: Vital Signs: Blood pressure 138/73, pulse 92, respiratory rate 16, temperature 97.8, oxygen saturation 98%. General: Mr. Peralta is sitting in a chair, getting on with therapy. 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 Otherwise, he is normocephalic, atraumatic. Sclerae anicteric. Oropharynx is moist. Neck: Supple. Chest: Clear. Heart: Regular. Extremities: Mild edema in the left more than right lower extremity. He does have some give-way in terms of strength in the lower extremity on the left. Otherwise, no focal deficits. Current Level Of Functioning: Currently, he did ambulate 40 feet twice with minimal assistance using a rolling walker. He did have upright posture and was able to maintain correct distance in the rolling walker while ambulating. He did perform [id number]-[id number]-ktu transfers with maximum assistance, multiple pvc-pt-xatxa transfers with maximal assistance. He has a rolling walker, stand pivot transfers with maximum assistance using a rolling walker. Rehabilitation Assessment And Plan: His rehabilitation impairment category is 08 Orthopedic, lower extremity joint replacement. His impairment code is 08.51, status post unilateral hip replacement. His etiologic diagnosis severe degenerative joint disease, active comorbidities, atrial fibrillation, Parkinson disease, prostate cancer, venous stasis ulcer, polymyalgia rheumatica. Plan: 1. Physical and occupational therapy 3 hours daily and Speech will be also needed half an hour daily and both of 5 of 7 days weekly. 2. For urinary tract infection, he will continue Augmentin twice daily, complete 7 days. Cultures will be evaluated. Continue Tylenol Extra Strength 500 mg every 4 hours for moderate pain. Continue Eliquis 5 mg twice daily for DVT prophylaxis. Continue vitamin D 5000 units daily for low vitamin D level, chronic. Continue Colace 200 mg daily for constipation. Continue Lasix 20 mg daily for retention. Continue gabapentin 200 mg at bedtime for neuropathic pain and 100 mg in the morning. 3. Meclizine 25 mg for vertigo. 4. Melatonin 3 mg at night for insomnia. 5. Toprol 75 mg daily for heart rate and blood pressure control. 6. Zofran 4 mg every 4 hours as needed for nausea. 7. Potassium 10 mEq twice daily for low potassium level. 8. Deltasone 10 mg daily for his pulmonary issues. 9. He will continue Flomax for urinary retention and Zanaflex 2 mg at bedtime for muscle spasms. Impacted Comorbid Conditions: He does have multiple comorbid conditions which can make his recovery after total hip arthroplasty challenging; however, he has had comorbid conditions that are mitigated by medications as noted and his pain will be managed with Lidoderm patch as appropriate. His constipation addressed with suppository or Fleet enema if need be, and the risk of deep vein thrombosis aggressively managed with Eliquis as noted. Rehab specific plan: As noted, he will have 3 hours of physical and occupational therapy, 5 to 7 days. Next, he will have up to half an hour speech therapy daily upto 5 to 7 days as appropriate. Comorbidities will be addressed as needed. He has a good understanding of the admission process to the rehabilitation unit and has a potential to make good improvement and he does have an ongoing need for both physical and occupational therapy and to be evaluated and determine if speech therapy is appropriate as well. He will require ongoing nutrition services, wound care services, and aggressive medical management of his multiple comorbid conditions. Given his complex condition and risk of further medical and rehabilitation complication, given the process to total hip arthroplasty, he cannot be safely or effectively go to rehabilitation on a lower level facility such as care home. Barriers To Discharge: He does have left eye prosthesis, may have some depth perception issues and would require visual guidance as he ambulates to reduce his chances of falling and injury. He does have a urinary tract infection and antibiotics will continue as appropriate. Expected Length Of Stay: 14 days. Disposition: Home. Prognosis: At this point is good. Rehabilitation Goals: 1. Become independent with upper and lower body dressing, transferring, toileting, and showering. 2. Become independent with ambulation beyond household distances up to 650 feet with modified independence to independence. 3. Up and down at least 5 steps with modified independence to independence. I acknowledge that I personally performed a full physical examination on Mr. Carlitos Peralta nowhere within 24 hours of his arrival to the inpatient rehabilitation unit and determined that he is able to tolerate the course of treatment as outlined at the intensity level as stated. A detailed individualized plan of care for him will be completed by hospital day 4 based on the pre-admission screen, history and physical, and therapy evaluations. HARDY Voice ID: [id number] BILL
[2022-11-18] MEDS ORDERED: METOPROLOL XL 25 MG TAB PO SCH (06:00)
[2022-11-18] MEDS ORDERED: FUROSEMIDE 20 MG TABLET PO SCH (08:00)
[2022-11-18] MEDS ORDERED: LEVODOPA PO SCH (08:00)
[2022-11-18] MEDS ORDERED: CARBIDOPA PO SCH (08:00)
[2022-11-18] MEDS: APIXABAN 5 MG TABLET PO SCH ×2 (08:38→19:45)
[2022-11-18] MEDS: predniSONE 10 MG TAB PO SCH (08:39)
[2022-11-18] MEDS: METOPROLOL XL 25 MG TAB PO SCH (08:39)
[2022-11-18] MEDS: GABAPENTIN 100 MG CAP PO SCH ×2 (08:42→19:46)
[2022-11-18] MEDS: ACETAMINOPHEN 500 MG TAB PO PRN (08:49)
[2022-11-18] MEDS: POTASSIUM CL SA 10 MEQ TAB PO SCH ×2 (08:49→19:44)
[2022-11-18] MEDS: VITAMIN D 5,000 UNIT CAP PO SCH (08:50)
[2022-11-18] MEDS: AMOX/K CLAV 875 MG TAB PO SCH ×2 (08:51→19:45)
[2022-11-18] MEDS: CRANBERRY FRUIT EXTRACT 200 MG CAP PO SCH ×2 (08:54→19:45)
--- NOTE | 2022-11-18 09:39 | P.RH.PN ---
Estimated Length of Stay: 14 Expected Discharge Date: 11/26/22 Discharge Disposition Plan: Home Family Support: Yes Senior Living Goal: Mobility, Transfers, Self Care Vital Signs: Last Vital Signs Temp 97.6 F 11/18/22 07:44 Pulse 101 H 11/18/22 08:55 Resp 18 11/18/22 07:44 BP 108/56 L 11/18/22 08:55 Pulse Ox 98 11/18/22 07:44 Laboratory: Laboratory Last Values WBC 6.50 K/uL (4.3-10.9) 11/18/22 04:09 RBC 3.58 M/uL (4.33-5.43) L 11/18/22 04:09 Hgb 11.6 g/dL (13.6-17.9) L 11/18/22 04:09 Hct 35.6 % (39.6-49.0) L 11/18/22 04:09 MCV 99.4 fL (80-100) 11/18/22 04:09 MCH 32.4 pg (27.0-35.0) 11/18/22 04:09 MCHC 32.6 g/dL (32.0-36.0) 11/18/22 04:09 RDW 16.8 % (12.1-15.2) H 11/18/22 04:09 Plt Count 138 K/uL (152-406) L 11/18/22 04:09 MPV 8.7 fL (7.6-11.3) 11/18/22 04:09 Neutrophils % 61.5 % (41.7-73.7) 11/18/22 04:09 Lymphocytes % 22.8 % (15.3-44.8) 11/18/22 04:09 Monocytes % 12.1 % (3.3-12.3) 11/18/22 04:09 Eosinophils % 2.9 % (0-4.4) 11/18/22 04:09 Basophils % 0.7 % (0-1.3) 11/18/22 04:09 Absolute Neutrophils 4.0 K/uL (1.8-8.0) 11/18/22 04:09 Absolute Lymphocytes 1.5 K/uL (0.7-4.9) 11/18/22 04:09 Absolute Monocytes 0.8 K/uL (0.1-1.3) 11/18/22 04:09 Absolute Eosinophils 0.2 K/uL (0-0.5) 11/18/22 04:09 Absolute Basophils 0.0 K/uL (0-0.5) 11/18/22 04:09 Sodium 140 mmol/L (136-145) 11/18/22 04:09 Potassium 4.3 mmol/L (3.5-5.1) 11/18/22 04:09 Chloride 110 mmol/L (98-107) H 11/18/22 04:09 Carbon Dioxide 28 mmol/L (21-32) 11/18/22 04:09 Anion Gap 6.3 mEq/L (5.0-15.0) 11/18/22 04:09 BUN 27 mg/dL (7-18) H 11/18/22 04:09 Creatinine 1.15 mg/dL (0.70-1.30) 11/18/22 04:09 Est GFR (CKD-EPI) 64 ml/min (=/>90) L 11/18/22 04:09 Glucose 105 mg/dL (74-106) 11/18/22 04:09 Calcium 8.3 mg/dL (8.5-10.1) L 11/18/22 04:09 Magnesium 2.3 mg/dL (1.6-2.4) 11/18/22 04:09 Albumin 2.5 g/dL (3.4-5.0) L 11/18/22 04:09 Prealbumin 15.9 mg/dL (20-40) L 11/18/22 04:09 Urine Color Light-yellow (Yellow) 11/17/22 13:20 Urine Clarity Turbid (Clear) H 11/17/22 13:20 Urine pH 6.0 (5.0-7.0) 11/17/22 13:20 Ur Specific [place] 1.015 (1.005-1.030) 11/17/22 13:20 Glucose (UA)(Auto) Negative (Negative) 11/17/22 13:20 Urine Ketones Negative (Negative) 11/17/22 13:20 Urine Blood 3+ (over) (Negative) H 11/17/22 13:20 Urine Nitrite Negative (Negative) 11/17/22 13:20 Urine Bilirubin Negative (Negative) 11/17/22 13:20 Urine Urobilinogen Normal (Normal) 11/17/22 13:20 Ur Leukocyte Esterase 500 [place]/uL (Negative) H 11/17/22 13:20 Urine RBC >50 /HPF (None Seen) H 11/17/22 13:20 Urine WBC >50 /HPF (<5) H 11/17/22 13:20 Urine WBC Clumps Rare /HPF (None Seen) 11/17/22 13:20 Ur Squamous Epith Cells <5 /HPF (None Seen) 11/17/22 13:20 U Non-Squamous Epi Cells <5 /HPF (None Seen) 11/17/22 13:20 Unidentified Crystals Few /HPF (None Seen) 11/17/22 13:20 Urine Bacteria None seen /HPF (<20) 11/17/22 13:20 Hyaline Casts 0-5 /LPF (None Seen) 11/17/22 13:20 Urine Mucus Slight /HPF (None Seen) 11/17/22 13:20 Urine Culture Reflexed Reflexed 11/17/22 13:20 Urine Total Protein 1+ (Negative) H 11/17/22 13:20 SARS-CoV-2 Rap RNA(RT-PCR) Negative (NEGATIVE) 11/18/22 04:10 Weight: 218 lb Wound Present: Yes Closed Surgical Incision Present: Yes Physician Update: His labs are stable with normal renal function. Mild malnutrition and anemic. Bed mobility at max assistance and sit to stand transfer. Walked 40' x 2 at minimum assistance. His parkinsonism presents moderate difficulty with him doing ADL and ambulating with modified independence. However, he is motivated to improve well. He has patient care assistant assistance at home. Labs reviewed and are stable. He has postural instability with a halting gait and tendency to fall with bradykinesia. Summary: Patient's care plan and shelter goals have been reviewed and revised as necessary. Please see the Rehabilitation Signature page for all necessary signatures.
[2022-11-18] MEDS ORDERED: CARBIDOPA/LEVODOPA 25/100 TAB PO SCH (13:00)
--- NOTE | 2022-11-18 19:35 | PN ---
Date of Progress Note: 11/18/2022 Time Of Service: 1 p.m. Subjective: Mr. Peralta is doing well. He is on his way to the gym to begin therapy. He does repo rt some pain that is up to 7/10 in his left total hip arthroplasty region, but lowest baseline around 3-4. Otherwise, he has no new complaints. Review of Systems: No fevers, chills. He has some myalgias, arthralgias. No rash, headache, weight change. No psychia tric issues. No gastrointestinal or genitourinary issues. Physical Examination: Vital Signs: Blood pressure 114/65, pulse 94, respiratory rate 16, temperature 97.6. General: Mr. Peralta is sitting in a wheelchair, getting ready to begin his therapy in the gym. HEENT: He does have a left eye prosthesis. Otherwise, he is normocephalic, atraumatic. Sclerae ani cteric. Oropharynx moist. Neck: Supple. Extremities: He does have some mild edema on the left lower extremity where he had a total hip arthr oplasty and his right foot is bandaged where there is ulceration noted. Also as he did shower, there is a stage II reported on his coccygeal region. Laboratory Studies: White blood cell count 6.5, hemoglobin 11.6, platelets 138. Chemistries; sodium 142, potassium 4.3, chloride 110, carbon dioxide 28, BUN 27, creatinine 1.15. Prealbumin 15.9. Uri nalysis; 3+ blood, 500 leukocyte esterase, greater than 50 red blood cells, greater than 50 white blo od cells, no bacteria seen. COVID-19 testing is negative. X-ray/imaging: X-ray and imaging none. Medications: Extra Strength Tylenol 500 mg every 4 hours, Augmentin 875-125 every 12 hours for his u rinary tract infection that he had prior to coming to the unit, Eliquis 5 mg twice daily, vitamin D3 5000 units daily, Colace 200 mg daily, Lasix 20 mg daily, gabapentin 200 mg at bedtime and 100 mg vita ly, Pedro 1 packet twice daily, lidocaine patches 2 patches topically daily, Antivert 25 mg daily as needed, melatonin 3 mg at bedtime, Toprol-XL 75 mg daily, Zofran 4 mg q.6 hours as needed, Deltasone 10 mg daily, potassium 10 mEq twice daily, Senokot S two at bedtime, Flomax 0.4 mg at bedtime, Zanafl ex 2 mg at bedtime. The patient will restart carbidopa-levodopa 25-200 daily once he brings it from home. Current Functional Status: Currently, Mr. Peralta is able to perform supine to sit transfers with m aximum assistance, multiple lgb-tw-ikhyr transfers with moderate assistance with a rolling walker, st and pivot transfers with moderate assistance using a rolling walker. He ambulated 75 feet twice, 125 feet twice with contact guard assistance using a rolling walker. Progress Towards Rehabilitation Goals: At this point, he is beginning to make fair progress toward h is goals of becoming independent with upper and lower body dressing, transferring, toileting, showeri ng, ambulating at least 250 feet with modified independence and potentially going up down 5 or 10 kar ps with modified independence. Assessment And Plan: Mr. Peralta is an 82-year-old patient, admitted to rehabilitation unit with le ft total hip arthroplasty. He has comorbid atrial fibrillation, parkinsonism, prostate cancer, venou s stasis ulcer, polymyalgia rheumatica. Plan: 1.Physical and occupational therapy as directed for 3 hours daily 5 of 7 days. 2.Continue Augmentin for urinary tract infection to complete 7 days. 3.Use Tylenol adding a patch for pain due to his arthroplasty and as needed. 4.He will continue Eliquis 5 mg twice a day for his atrial fibrillation and DVT prophylaxis. 5.Vitamin D3 for low vitamin D level. 6.Lasix for fluid retention. 7.Gabapentin for neuropathic pain. 8.Flomax for urinary retention. 9.Comorbidities are continuing to impact rehabilitation process at this point. His urinary tract in fection is being managed with Augmentin. 10.His parkinsonism is managed with Sinemet. Please note, the issue of his Parkinson disease is gabrielle y important to address as he does have a high risk of falling given his postural instability as slowe r and more festinating gait to involve leg turning and tendency as a drop in blood pressure due to hi s autonomic dysfunction related to Parkinson. He is carefully monitored for changes such as the auto nomic dysfunction related to orthostatic hypotension. SCD, SHARLENE hose, abdominal binders, and pressure support will be used. LB/MODL Voice ID: [id number] Report ID: [id number]
[2022-11-18] MEDS: TIZANIDINE 4 MG TABLET PO SCH (19:45)
[2022-11-18] MEDS: TAMSULOSIN 0.4 MG SR CAP PO SCH (19:45)
[2022-11-18] MEDS: JUVEN PACKET PO SCH (19:55)
[2022-11-19] MEDS ORDERED: CARBIDOPA PO SCH (06:30)
[2022-11-19] MEDS ORDERED: LEVODOPA PO SCH (06:30)
[2022-11-19] MEDS: CARBIDOPA PO SCH (07:32)
[2022-11-19] MEDS: LEVODOPA PO SCH (07:32)
[2022-11-19] MEDS: JUVEN PACKET PO SCH ×3 (07:45→20:00)
[2022-11-19] MEDS: CRANBERRY FRUIT EXTRACT 200 MG CAP PO SCH ×2 (07:45→20:00)
[2022-11-19] MEDS: AMOX/K CLAV 875 MG TAB PO SCH ×2 (07:45→20:00)
[2022-11-19] MEDS: GABAPENTIN 100 MG CAP PO SCH ×2 (07:46→20:01)
[2022-11-19] MEDS: predniSONE 10 MG TAB PO SCH (07:46)
[2022-11-19] MEDS: METOPROLOL XL 25 MG TAB PO SCH (07:46)
[2022-11-19] MEDS: APIXABAN 5 MG TABLET PO SCH ×2 (07:46→20:00)
[2022-11-19] MEDS: FUROSEMIDE 20 MG TABLET PO SCH (07:47)
[2022-11-19] MEDS: POTASSIUM CL SA 10 MEQ TAB PO SCH ×2 (07:48→20:00)
[2022-11-19] MEDS: VITAMIN D 5,000 UNIT CAP PO SCH (07:55)
[2022-11-19] MEDS: LIDOCAINE 4% PATCH TOP SCH (08:49)
[2022-11-19] MEDS: ACETAMINOPHEN 500 MG TAB PO PRN (10:46)
--- NOTE | 2022-11-19 13:56 | P.PN ---
Subjective Date of Service: 11/19/22 Chief Complaint: WEAK, PAIN FROM HIP SURGERY Subjective: Improving HE CAN'T TOLERATE ANY NARCOTICS. HE TAKES TYLENOL. ULCER IN LEGS ARE CARED BY STIMULEN. Review of Systems 10-point ROS is otherwise unremarkable Physical Examination - Vital Signs Temperature: 98 F Blood Pressure: 140/66 Pulse: 83 Respirations: 16 Pulse Ox (%): 96 - Physical Exam General: Oriented x3, Mild distress HEENT: Atraumatic, PERRLA, EOMI Neck: Supple, JVD not distended Respiratory: Clear to auscultation bilaterally, Normal air movement Cardiovascular: Regular rate/rhythm, Normal S1 S2, Edema (ULCERS ARE DRYING HEALING WELL.) Gastrointestinal: Normal bowel sounds, No tenderness Musculoskeletal: No tenderness Integumentary: No rashes Neurological: Normal speech, Normal tone, Normal affect Lymphatics: No axilla or inguinal lymphadenopathy - Studies Medications List Reviewed: Yes Assessment And Plan - Current Problems (Diagnosis) (1) Aftercare following hip joint replacement surgery Current Visit: Yes Status: Acute Plan: CONT PT HE IS DOING GOOD STABLE. Qualifiers: Laterality: left Qualified Code(s): Z47.1 - Aftercare following joint replacement surgery; Z96.642 - Presence of left artificial hip joint (2) Venous stasis ulcer Current Visit: No Status: Chronic Plan: BILAT ULCERS ARE FROM VENOUS STASIS, ULCER COMPRESSION OFF LOAD CONTINUE STIMULEN. Qualifiers: Laterality: unspecified laterality
--- NOTE | 2022-11-19 16:28 | PN ---
Date of Progress Note: 11/19/2022 Time Of Service: 10:00 a.m. Subjective: Mr. Peralta report some pain at the side of his total hip arthroplasty, and he is recei ving pain patches in addition to the Tylenol. He does not want stronger medications. Max, his pain is 7/10 and minimal 3/10. He was worried about taking too much fluid pills which is Lasix and I was told that he will be put on 10 mg instead of 20 with daily weights. He had another concern regarding his Parkinson's medication. It is now brought by his daughter who was in the room and it will be ad ded to his regimen, where it states Sinemet 50/200, will be given around 8:00 a.m. prior to him start ing therapy and in empty stomach. Review of Systems: General: He reports some mild pain is noted in the left hip total replacement area and myalgias in t he region as well. HEENT: He otherwise is normocephalic, atraumatic. Sclerae anicteric. Oropharynx is moist. Neck: Supple. Chest: Clear. Heart: Regular. Extremities: Show mild edema on the left side and in the right as well. Physical Examination: Vital Signs: Blood pressure 140/66, pulse 83, respiratory rate 16, temperature 98, oxygen saturation 96%. Weight 218 pounds. Height 5 feet 11 inches, BMI 30.4. General: Mr. Peralta is resting comfortably in a chair beside the bed. HEENT: He is normocephalic, atraumatic. His sclerae are anicteric. Oropharynx is moist. Neck: Supple. Chest: Clear. Heart: Regular. Extremities: Show mild edema bilaterally. He does have some give-way weakness on the left lower ext remity. Otherwise, no roberto focal deficits. Laboratory Studies: No new laboratory studies compared to yesterday. X-ray Imaging: No new x-rays or imaging. Medications: As listed, medicines remain unchanged. He is on Eliquis 5 mg twice daily completing Au gmentin for urinary tract infection. Vitamin D, Colace, Lasix, gabapentin, lidocaine patch, Antivert , melatonin, Toprol, Zofran, prednisone, Zanaflex, and Flomax. Those are already listed in and are u nchanged. Current Functional Status: Currently, Mr. Perlata was able to ambulate 250 feet with contact guard assistance using a rolling walker. He did sit to stand transfers with moderate assistance using a ro lling walker. He did perform stand and pivot transfers at moderate assistance using a rolling walker . In addition, supine to sit transfers with contact guard assistance and verbal cues. He did ambula te to the gym with a rolling walker with contact guard assistance. Progress Towards Rehabilitation Goals: Mr. Peralta is making fair to good progress overall with his rehabilitation goals which do include an independently transferring from bed to chair to wallet thro ugh shower, dressing upper and lower body, and ambulating 250 feet with modified independence. Also, he would have a goal of modified independence and going up and down 10-15 steps. Assessment: Mr. Peralta is an 82-year-old patient with left total hip arthroplasty. He has atrial fibrillation, parkinsonism, prostate cancer, venous stasis ulcer, polymyalgia rheumatica. Plan: 1.Continue with physical and occupational therapy as indicated. 2.Complete Augmentin for urinary tract infection. 3.Use Tylenol and lidocaine patches for pain in the left hip. 4.Eliquis 5 mg twice daily for atrial fibrillation and DVT prophylaxis. 5.Continue vitamin D for vitamin D level. 6.Continue with Lasix with daily weights for fluid management. 7.Continue gabapentin for neuropathic pain. 8.Continue Flomax for urine retention. 9.Continue with Sinemet 50/200 daily for Parkinsonism. There is a concern of orthostatic hypotensio n and as appropriate, he will have SHARLENE hose and abdominal binders put in place. Comorbidities That Continue To Impact Rehabilitation Process: At this point, he has fluid management with edema impacting his rehabilitation but not in any significant way. He is having fluid manageme nt with Lasix for extra fluid removal. There is some mild fluid restriction and he will have daily w eights. He is also completing Augmentin for his urinary tract infection and his parkinsonism which c an increase his risk of postural instability and falls. He is addressed with the medication restarti ng at 50/200 in the morning 30 minutes away from his breakfast. LB/MODL Voice ID: [id number] Report ID: [id number]
[2022-11-19] MEDS: TIZANIDINE 4 MG TABLET PO SCH (20:01)
[2022-11-19] MEDS: TAMSULOSIN 0.4 MG SR CAP PO SCH (20:09)
[2022-11-20] MEDS: JUVEN PACKET PO SCH ×2 (08:00→20:00)
[2022-11-20] MEDS: LIDOCAINE 4% PATCH TOP SCH (08:16)
[2022-11-20] MEDS: FUROSEMIDE 20 MG TABLET PO SCH (08:17)
[2022-11-20] MEDS: CRANBERRY FRUIT EXTRACT 200 MG CAP PO SCH ×2 (08:17→20:31)
[2022-11-20] MEDS: AMOX/K CLAV 875 MG TAB PO SCH ×2 (08:18→20:30)
[2022-11-20] MEDS: ACETAMINOPHEN 500 MG TAB PO PRN ×2 (08:18→12:51)
[2022-11-20] MEDS: APIXABAN 5 MG TABLET PO SCH ×2 (08:19→20:31)
[2022-11-20] MEDS: POTASSIUM CL SA 10 MEQ TAB PO SCH ×2 (08:19→20:32)
[2022-11-20] MEDS: predniSONE 10 MG TAB PO SCH (08:19)
[2022-11-20] MEDS: VITAMIN D 5,000 UNIT CAP PO SCH (08:19)
[2022-11-20] MEDS: GABAPENTIN 100 MG CAP PO SCH ×2 (08:19→20:31)
[2022-11-20] MEDS: LEVODOPA PO SCH (08:22)
[2022-11-20] MEDS: CARBIDOPA PO SCH (08:22)
[2022-11-20] MEDS: METOPROLOL XL 25 MG TAB PO SCH (08:23)
--- NOTE | 2022-11-20 08:58 | P.PN ---
Subjective Date of Service: 11/20/22 Chief Complaint: WEAK, PAIN FROM HIP SURGERY Subjective: Improving HE CAN'T TOLERATE ANY NARCOTICS. HE TAKES TYLENOL. ULCER IN LEGS ARE CARED BY STIMULEN. DOING PT DAILY. HE HAS NO MAJOR PAIN. Physical Examination - Vital Signs Temperature: 97.3 F Blood Pressure: 134/77 Pulse: 86 Respirations: 20 Pulse Ox (%): 94 - Physical Exam General: Oriented x3, Mild distress HEENT: Atraumatic, PERRLA, EOMI Neck: Supple, JVD not distended Respiratory: Clear to auscultation bilaterally, Normal air movement Cardiovascular: Regular rate/rhythm, Normal S1 S2 Gastrointestinal: Normal bowel sounds, No tenderness Musculoskeletal: No tenderness Integumentary: No rashes Neurological: Normal speech, Normal tone, Normal affect Lymphatics: No axilla or inguinal lymphadenopathy - Studies Microbiology Data (last 24 hrs): 11/17/22 13:20 Clean Catch Urine Blair Count - Final No growth. 11/17/22 13:20 Clean Catch Urine - Final No growth. Medications List Reviewed: Yes Assessment And Plan - Current Problems (Diagnosis) (1) Aftercare following hip joint replacement surgery Current Visit: Yes Status: Acute Plan: CONT PT HE IS DOING GOOD STABLE. Qualifiers: Laterality: left Qualified Code(s): Z47.1 - Aftercare following joint replacement surgery; Z96.642 - Presence of left artificial hip joint (2) Venous stasis ulcer Current Visit: No Status: Chronic Plan: BILAT ULCERS ARE FROM VENOUS STASIS, ULCER COMPRESSION OFF LOAD CONTINUE STIMULEN. ULCERS ARE DRYING WELL. CONTINUE COBAN LIGHT AND STIMULEN. AUTOMATIC GLOVE FORMER , HE WILL NEED FARROW WRAPS. Qualifiers: Laterality: unspecified laterality
[2022-11-20] MEDS: TIZANIDINE 4 MG TABLET PO SCH (20:31)
[2022-11-20] MEDS: TAMSULOSIN 0.4 MG SR CAP PO SCH (20:32)
[2022-11-20] MEDS: DOCUSATE NA/SENNA CONC 1 TAB PO PRN (20:32)
[2022-11-21] MEDS: LIDOCAINE 4% PATCH TOP SCH (07:42)
[2022-11-21] MEDS: JUVEN PACKET PO SCH ×2 (08:00→20:00)
[2022-11-21] MEDS: CARBIDOPA PO SCH (08:35)
[2022-11-21] MEDS: LEVODOPA PO SCH (08:35)
[2022-11-21] MEDS: GABAPENTIN 100 MG CAP PO SCH ×2 (08:37→20:22)
[2022-11-21] MEDS: APIXABAN 5 MG TABLET PO SCH ×2 (08:37→20:21)
[2022-11-21] MEDS: FUROSEMIDE 20 MG TABLET PO SCH (08:37)
[2022-11-21] MEDS: VITAMIN D 5,000 UNIT CAP PO SCH (08:38)
[2022-11-21] MEDS: POTASSIUM CL SA 10 MEQ TAB PO SCH ×2 (08:38→20:22)
[2022-11-21] MEDS: ACETAMINOPHEN 500 MG TAB PO PRN (08:38)
[2022-11-21] MEDS: METOPROLOL XL 25 MG TAB PO SCH (08:39)
[2022-11-21] MEDS: CRANBERRY FRUIT EXTRACT 200 MG CAP PO SCH ×2 (09:35→20:21)
[2022-11-21] MEDS: AMOX/K CLAV 875 MG TAB PO SCH ×2 (09:35→20:21)
[2022-11-21] MEDS: TIZANIDINE 4 MG TABLET PO SCH (20:21)
[2022-11-21] MEDS: TAMSULOSIN 0.4 MG SR CAP PO SCH (20:21)
--- NOTE | 2022-11-21 22:00 | P.PN ---
Subjective Date of Service: 11/21/22 Chief Complaint: WEAK, PAIN FROM HIP SURGERY Subjective: Improving HE CAN'T TOLERATE ANY NARCOTICS. HE TAKES TYLENOL. ULCER IN LEGS ARE CARED BY STIMULEN. DOING PT DAILY. HE HAS NO MAJOR PAIN. Review of Systems 10-point ROS is otherwise unremarkable General: Weakness Musculoskeletal: As per HPI Physical Examination - Vital Signs Temperature: 97.0 F Blood Pressure: 109/58 Pulse: 89 Respirations: 18 Pulse Ox (%): 99 - Physical Exam General: Oriented x3, Mild distress HEENT: Atraumatic, PERRLA, EOMI Neck: Supple, JVD not distended Respiratory: Clear to auscultation bilaterally, Normal air movement Cardiovascular: Regular rate/rhythm, Normal S1 S2 Gastrointestinal: Normal bowel sounds, No tenderness Musculoskeletal: No tenderness Integumentary: No rashes Neurological: Normal speech, Normal tone, Normal affect Lymphatics: No axilla or inguinal lymphadenopathy - Studies Medications List Reviewed: Yes Assessment And Plan - Current Problems (Diagnosis) (1) Aftercare following hip joint replacement surgery Current Visit: Yes Status: Acute Plan: CONT PT HE IS DOING GOOD STABLE. PT IS DOING WORK WITH HIM. HE NEEDS TO WALK WITH WALKER HE REFUSED TO DO BUT I TRIED TO CONVINCE. Qualifiers: Laterality: left Qualified Code(s): Z47.1 - Aftercare following joint replacement surgery; Z96.642 - Presence of left artificial hip joint (2) Venous stasis ulcer Current Visit: No Status: Chronic Plan: BILAT ULCERS ARE FROM VENOUS STASIS, ULCER COMPRESSION OFF LOAD CONTINUE STIMULEN. ULCERS ARE DRYING WELL. CONTINUE COBAN LIGHT AND STIMULEN. POST GRADUATE INTERN , HE WILL NEED FARROW WRAPS. Qualifiers: Laterality: unspecified laterality
[2022-11-22 05:25] VITALS: BMI 30.1
[2022-11-22] MEDS: ACETAMINOPHEN 500 MG TAB PO PRN (06:57)
[2022-11-22] MEDS: JUVEN PACKET PO SCH ×2 (08:00→19:40)
[2022-11-22] MEDS: LIDOCAINE 4% PATCH TOP SCH (08:52)
[2022-11-22] MEDS: METOPROLOL XL 25 MG TAB PO SCH (08:53)
[2022-11-22] MEDS: CRANBERRY FRUIT EXTRACT 200 MG CAP PO SCH ×2 (08:53→19:40)
[2022-11-22] MEDS: GABAPENTIN 100 MG CAP PO SCH ×2 (08:53→19:41)
[2022-11-22] MEDS: APIXABAN 5 MG TABLET PO SCH ×2 (08:54→19:41)
[2022-11-22] MEDS: AMOX/K CLAV 875 MG TAB PO SCH ×2 (08:54→19:41)
[2022-11-22] MEDS: POTASSIUM CL SA 10 MEQ TAB PO SCH ×2 (08:54→19:41)
[2022-11-22] MEDS: CARBIDOPA PO SCH (08:55)
[2022-11-22] MEDS: VITAMIN D 5,000 UNIT CAP PO SCH (08:55)
[2022-11-22] MEDS: LEVODOPA PO SCH (08:55)
[2022-11-22] MEDS: FUROSEMIDE 20 MG TABLET PO SCH (08:55)
[2022-11-22] MEDS: TAMSULOSIN 0.4 MG SR CAP PO SCH (19:41)
[2022-11-22] MEDS: TIZANIDINE 4 MG TABLET PO SCH (19:41)
[2022-11-23] MEDS: CARBIDOPA PO SCH (07:40)
[2022-11-23] MEDS: LEVODOPA PO SCH (07:40)
[2022-11-23] MEDS: VITAMIN D 5,000 UNIT CAP PO SCH (08:00)
[2022-11-23] MEDS: JUVEN PACKET PO SCH ×2 (08:00→20:00)
[2022-11-23] MEDS: POTASSIUM CL SA 10 MEQ TAB PO SCH ×2 (08:03→20:52)
[2022-11-23] MEDS: AMOX/K CLAV 875 MG TAB PO SCH ×2 (08:03→20:52)
[2022-11-23] MEDS: METOPROLOL XL 25 MG TAB PO SCH (08:04)
[2022-11-23] MEDS: FUROSEMIDE 20 MG TABLET PO SCH (08:04)
[2022-11-23] MEDS: CRANBERRY FRUIT EXTRACT 200 MG CAP PO SCH ×2 (08:04→20:52)
[2022-11-23] MEDS: APIXABAN 5 MG TABLET PO SCH ×2 (08:04→20:52)
[2022-11-23] MEDS: GABAPENTIN 100 MG CAP PO SCH ×2 (08:05→20:51)
[2022-11-23] MEDS: LIDOCAINE 4% PATCH TOP SCH (08:07)
[2022-11-23] MEDS: TAMSULOSIN 0.4 MG SR CAP PO SCH (20:51)
[2022-11-23] MEDS: TIZANIDINE 4 MG TABLET PO SCH (20:51)
--- NOTE | 2022-11-23 21:29 | P.PN ---
Subjective Date of Service: 11/23/22 Chief Complaint: WEAK, PAIN FROM HIP SURGERY Subjective: Improving HE CAN'T TOLERATE ANY NARCOTICS. HE TAKES TYLENOL. ULCER IN LEGS ARE CARED BY STIMULEN. DOING PT DAILY. HE HAS NO MAJOR PAIN. DOING PT FOR HIP REPLACEMENT. Physical Examination - Vital Signs Temperature: 96.9 F Blood Pressure: 139/68 Pulse: 77 Respirations: 18 Pulse Ox (%): 97 - Physical Exam General: Oriented x3, Mild distress HEENT: Atraumatic, PERRLA, EOMI Neck: Supple, JVD not distended Respiratory: Clear to auscultation bilaterally, Normal air movement Cardiovascular: Regular rate/rhythm, Normal S1 S2 Gastrointestinal: Normal bowel sounds, No tenderness Musculoskeletal: No tenderness Integumentary: No rashes Neurological: Normal speech, Normal tone, Normal affect Lymphatics: No axilla or inguinal lymphadenopathy - Studies Medications List Reviewed: Yes Assessment And Plan - Current Problems (Diagnosis) (1) Aftercare following hip joint replacement surgery Current Visit: Yes Status: Acute Plan: CONT PT HE IS DOING GOOD STABLE. PT IS DOING WORK WITH HIM. HE NEEDS TO WALK WITH WALKER HE REFUSED TO DO BUT I TRIED TO CONVINCE. CONTINUE PT PAIN IS CONTROLLED. Qualifiers: Laterality: left Qualified Code(s): Z47.1 - Aftercare following joint replacement surgery; Z96.642 - Presence of left artificial hip joint (2) Venous stasis ulcer Current Visit: No Status: Chronic Plan: BILAT ULCERS ARE FROM VENOUS STASIS, ULCER COMPRESSION OFF LOAD CONTINUE STIMULEN. ULCERS ARE DRYING WELL. CONTINUE COBAN LIGHT AND STIMULEN. ALF , HE WILL NEED FARROW WRAPS. Qualifiers: Laterality: unspecified laterality
[2022-11-24] MEDS: LEVODOPA PO SCH (06:22)
[2022-11-24] MEDS: CARBIDOPA PO SCH (06:22)
[2022-11-24 06:23] LABS: Absolute Lymphocytes (CBC) 1.8 K/uL (0.7-4.9); Hematocrit 36.5 % (39.6-49.0); MCV 98.8 fL (80-100); MPV 8.6 fL (7.6-11.3); RBC Red Blood Cell Count 3.69 M/uL (4.33-5.43)
[2022-11-24 06:42] LABS: Albumin 2.6 g/dL (3.4-5.0); Magnesium 2.5 mg/dL (1.6-2.4); Potassium 4.5 mmol/L (3.5-5.1); Prealbumin 25.2 mg/dL (20-40)
[2022-11-24] MEDS: JUVEN PACKET PO SCH (08:00)
[2022-11-24] MEDS: AMOX/K CLAV 875 MG TAB PO SCH (08:15)
[2022-11-24] MEDS: GABAPENTIN 100 MG CAP PO SCH ×2 (08:16→20:39)
[2022-11-24] MEDS: METOPROLOL XL 25 MG TAB PO SCH (08:16)
[2022-11-24] MEDS: CRANBERRY FRUIT EXTRACT 200 MG CAP PO SCH ×2 (08:16→20:39)
[2022-11-24] MEDS: VITAMIN D 5,000 UNIT CAP PO SCH (08:17)
[2022-11-24] MEDS: FUROSEMIDE 20 MG TABLET PO SCH (08:17)
[2022-11-24] MEDS: APIXABAN 5 MG TABLET PO SCH ×2 (08:17→20:39)
[2022-11-24] MEDS: POTASSIUM CL SA 10 MEQ TAB PO SCH ×2 (08:18→20:39)
[2022-11-24] MEDS: LIDOCAINE 4% PATCH TOP SCH (09:45)
--- NOTE | 2022-11-24 15:49 | P.PN ---
Subjective Date of Service: 11/24/22 Chief Complaint: WEAK, PAIN FROM HIP SURGERY Subjective: Improving HE CAN'T TOLERATE ANY NARCOTICS. HE TAKES TYLENOL. ULCER IN LEGS ARE CARED BY STIMULEN. DOING PT DAILY. HE HAS NO MAJOR PAIN. DOING PT FOR HIP REPLACEMENT. STABLE DOING GOOD PT CONTINUE. Physical Examination - Vital Signs Temperature: 97.4 F Blood Pressure: 139/55 Pulse: 78 Respirations: 18 Pulse Ox (%): 94 - Studies Laboratory Data (last 24 hrs) 11/24/22 05:30: Sodium 142, Potassium 4.5, BUN 18, Creatinine 1.23, Glucose 93, Magnesium 2.5 H 11/24/22 05:30: WBC 7.20, Hgb 12.1 L, Hct 36.5 L, Plt Count 217 Medications List Reviewed: Yes Assessment And Plan - Current Problems (Diagnosis) (1) Aftercare following hip joint replacement surgery Current Visit: Yes Status: Acute Plan: CONT PT HE IS DOING GOOD STABLE. PT IS DOING WORK WITH HIM. HE NEEDS TO WALK WITH WALKER HE REFUSED TO DO BUT I TRIED TO CONVINCE. CONTINUE PT PAIN IS CONTROLLED. Qualifiers: Laterality: left Qualified Code(s): Z47.1 - Aftercare following joint r eplacement surgery; Z96.642 - Presence of left artificial hip joint (2) Venous stasis ulcer Current Visit: No Status: Chronic Plan: BILAT ULCERS ARE FROM VENOUS STASIS, ULCER COMPRESSION OFF LOAD CONTINUE STIMULEN. ULCERS ARE DRYING WELL. CONTINUE COBAN LIGHT AND STIMULEN. DEMAND EQUIPMENT REPAIRER , HE WILL NEED FARROW WRAPS. Qualifiers: Laterality: unspecified laterality
[2022-11-24] MEDS: TAMSULOSIN 0.4 MG SR CAP PO SCH (20:38)
[2022-11-24] MEDS: TIZANIDINE 4 MG TABLET PO SCH (20:39)
[2022-11-24] MEDS: AMINO ACIDS/PROTEIN HYDROLYS 30 ML LIQUID.PKT PO SCH (20:39)
[2022-11-25] MEDS: ACETAMINOPHEN 500 MG TAB PO PRN ×2 (01:14→04:59)
[2022-11-25] MEDS: AMINO ACIDS/PROTEIN HYDROLYS 30 ML LIQUID.PKT PO SCH (08:00)
[2022-11-25 09:14] VITALS: TEMP 97.6
[2022-11-25] MEDS: LIDOCAINE 4% PATCH TOP SCH (10:51)
[2022-11-25] MEDS: CRANBERRY FRUIT EXTRACT 200 MG CAP PO SCH (10:52)
[2022-11-25] MEDS: APIXABAN 5 MG TABLET PO SCH (10:52)
[2022-11-25] MEDS: POTASSIUM CL SA 10 MEQ TAB PO SCH (10:52)
[2022-11-25] MEDS: GABAPENTIN 100 MG CAP PO SCH (10:52)
[2022-11-25] MEDS: METOPROLOL XL 25 MG TAB PO SCH (10:52)
[2022-11-25] MEDS: FUROSEMIDE 20 MG TABLET PO SCH (10:53)
[2022-11-25] MEDS: VITAMIN D 5,000 UNIT CAP PO SCH (10:54)
[2022-11-25] MEDS: CARBIDOPA PO SCH (10:55)
[2022-11-25] MEDS: LEVODOPA PO SCH (10:55)
[2022-11-25 11:51] VITALS: BP 141/71
--- NOTE | 2022-11-25 13:56 | P.PN ---
Subjective Date of Service: 11/25/22 Chief Complaint: WEAK, PAIN FROM HIP SURGERY Subjective: Improving HE CAN'T TOLERATE ANY NARCOTICS. HE TAKES TYLENOL. ULCER IN LEGS ARE CARED BY STIMULEN. DOING PT DAILY. HE HAS NO MAJOR PAIN. DOING PT FOR HIP REPLACEMENT. STABLE DOING GOOD PT CONTINUE. SP HIP REPLACEMENT L SIDE DOING GOOD. STABLE. CONT PT HOME HEALTH Physical Examination - Vital Signs Temperature: 97.6 F Blood Pressure: 141/71 Pulse: 86 Respirations: 19 Pulse Ox (%): 98 - Studies Medications List Reviewed: Yes Assessment And Plan - Current Problems (Diagnosis) (1) Aftercare following hip joint replacement surgery Current Visit: Yes Status: Acute Plan: CONT PT HE IS DOING GOOD STABLE. PT IS DOING WORK WITH HIM. HE NEEDS TO WALK WITH WALKER HE REFUSED TO DO BUT I TRIED TO CONVINCE. CONTINUE PT PAIN IS CONTROLLED. Qualifiers: Laterality: left Qualified Code(s): Z47.1 - Aftercare following joint replacement surgery; Z96.642 - Presence of left artificial hip joint (2) Venous stasis ulcer Current Visit: No Status: Chronic Plan: BILAT ULCERS ARE FROM VENOUS STASIS, ULCER COMPRESSION OFF LOAD CONTINUE STIMULEN. ULCERS ARE DRYING WELL. CONTINUE COBAN LIGHT AND STIMULEN. LONGTERM , HE WILL NEED FARROW WRAPS. Qualifiers: Laterality: unspecified laterality
== END 2022-11-25 14:20 | disposition home or self-care (01) | DRG 560 ==
LOC: 5TH 11:15
PROVIDERS: ADMIT Psychiatry & Neurology Neurology with Special Qualifications in Child Neurology; ATTEND Psychiatry & Neurology Neurology with Special Qualifications in Child Neurology
DX: Z47.1 Aftercare following joint replacement surgery (principal); I87.319 Chronic venous hypertension (idiopathic) with ulcer of unspecified lower extremity; L97.801 Non-pressure chronic ulcer of other part of unspecified lower leg limited to breakdown of skin; N39.0 Urinary tract infection, site not specified; G20 Parkinson's disease; D64.9 Anemia, unspecified; R60.9 Edema, unspecified; I48.91 Unspecified atrial fibrillation; M16.12 Unilateral primary osteoarthritis, left hip; M35.3 Polymyalgia rheumatica; K59.00 Constipation, unspecified; R53.1 Weakness; M25.552 Pain in left hip; Z96.642 Presence of left artificial hip joint; Z85.51 Personal history of malignant neoplasm of bladder; Z88.6 Allergy status to analgesic agent; Z87.891 Personal history of nicotine dependence; Z85.46 Personal history of malignant neoplasm of prostate; Z97.0 Presence of artificial eye
CPT/HCPCS: 36415; 80048; 81001; 82040; 83735; 84134; 85025; 87086; 87088; 92523; 97110; 97116; 97161; 97167; 97530; J2001; J7512; U0003

== ENCOUNTER 2022-12-26 10:55 | Inpatient (IN) | payer OTHER ==
--- OUTSIDE RECORDS SUMMARY | 2022-12-26 11:05 | XMS REPORT | Continuity of Care Document ---
:1940 Author Organization [facility] t Address [address] [place] [address] Care Team Providers Name Role Phone SHARPLESS [...] Attending Clinician Fidel Gonzalez MD Attending Clinician [phone] Andrew Neil MD Attending Clinician ANDREW NEIL Attending Clinician Unavailable Jason Staley MD Attending Clinician Zach Gould Attending Clinician BREANNA MEANS Attending Clinician Unavailable Lenard DRAINMAN, Saul Nguyen Attending Clinician Unavailable Breanna Means MD Attending Clinician Lenard DRAINMAN, Lorri Daley Attending Clinician Unavailable Alannah PT, Elena Stringer Attending Clinician Unavailable Doctor Unassigned, [place] Attending Clinician Unavailable Nurse, Adc Pob Immunization [...] Unavailable ASTRID JENKINS Attending Clinician Unavailable 2, [facility] Attending Clinician Unavailable BRENDAN HALL Attending [...] Clinician Unavailable Chrissy KATZ, Yenifer Attending Clinician Cricket PAC, Yuliana S Attending Clinician Efe Pugh MD Attending Clinician KRISHNAN, DENNY J. Attending Clinician Unavailable DIMA REA Attending Clinician Unavailable CHRIS LAZARO Admitting Clinician Unavailable MILAD MENDEZ Admitting Clinician Unavailable FIDEL GONZALEZ Admitting Clinician Unavailable Zach Gould Admitting Clinician CHRIS BURGOS Admitting Clinician Unavailable JASON STALEY Admitting Clinician Unavailable Efe Pugh MD Admitting Clinician Payers Payer Name Policy Type Policy Number Effective Date Expiration Date Ally cm MEDICARE A B [id number] 2005 00:00:00 GENERIC MEDICARE [id number] 2015 SUPPLEMENT 00:00:00 MEDICARE PART A \\T\\ [id number] 2005 B 00:00:00 COMMERCIAL [id number] 2010 NON-CONTRACT 00:00:00 GENERIC MEDICARE PART A \\T\\ [id number] B - MEDICARE MEDIGAP-GENERIC - [id number] 2010 GENERIC PAYOR 00:00:00 [facility] MEDICARE [id number] SUPPLEMENT PLAN - [facility] GENERIC-BEECH [id number] [facility] Problems Condition Condition Condition Status Onset Resolution Last Treating Co mments Source Name Details Category Date Date Treatment Clinician Date Urothelial Urothelial Disease Recurre [facility] 05[facility]03 [facility] 00 [place] Hydrourete Hydrourete Disease Active B aylor r r 5-04 College 00:00: of 00 Medicin e Nephrostom Nephrostom Disease Active B aylor y status y status 5-04 Colleg e (HCCode) (HCCode) 00:00: of 00 Medicin e CHARY (acute CHARY (acute Disease [facility]urre [facility] kidney kidney nce 4-26 [facility] injury) injury) 00:[facility]: Medical 00 Center Atrial Atrial Disease Recurre [facility] fibrillati fibrillati nce 4-26 Tracy kes on on 00:00: Medical 00 [place] Benign Benign Disease Active [facility]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 4-26 Luke s HTN HTN 00:00: Medical 00 Center Hydronephr Hydronephr Disease Active [facility] osis osis 4-24 [facility] 00:[facility]: [place] [id number] Center SEVERE SEVERE Diagnosis Active 2021-12-22 Me moria HYDRONEPHR HYDRONEPHR 12-12 21:45:00 l OSIS OSIS 00:00: Fredo Active 00 12/12/2021 [facility] HYDRONEHRO HYDRONEHR Diagnosis Active 2021-12-12 David SIS OSIS 12-12 15:22:00 l Active 00:00: Nolan 12/12/2021 [facility] Joint pain Joint pain Disease Active U nivers 3-10 ity of 00:00: [facility] Abnormal Abnormal Disease Active Unive rs gait gait 3-10 ity of 00:00: [facility] Muscle Muscle Disease Active Univers weakness weakness 3-10 ity of 00:00: [facility] 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 00:00: [place] [facility] Essential Essential Disease Active 2020-0 Uni vers hypertensi hypertensi 2-01 it y of on on 00:00: [place] [facility] 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 00:00: [place] [facility] Dizzy Dizzy Disease Active 2020-0 Univers spells spells 2-01 ity of 00:00: [place] 00 [facility] 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, sinus a, sinus 2-01 ity of 00:00: [place] [facility] Atypical Atypical Disease Active 2020-0 Unive rs chest pain chest pain 1-30 it y of 00:00: [place] [facility] 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 a 1-23 ity of 00:00: [place] 00 [facility] Meningioma Meningioma Disease Recurre 2015-[address] [facility] [address] nce 2-15 [facility] Center Brain Brain Disease Recurre 2015-[address] [facility] tumor tumor nce 2-15 [facility] 00:[facility] 00 Center Hyperlipid Hyperlipid Disease Active 2015-09 B aymaira emia emia 09 College 00:00: of 00 Medicin e BPH BPH Disease Active 2015-09 [facility] (benign (benign 10-21 College prostatic prostatic 00:00: of hyperplasi hyperplasi 00 Me dicin a) a) e History of History of Disease Active 2015-09 [facility] colon colon 10-21 [place] cancer cancer 00:00: of 00 Medicin e Meningioma Meningioma Disease Active 2015-09 [facility] 2 College 00:00: of 00 Medicin e Tobacco Tobacco Disease Active 2015-09 [facility] abuse abuse 10-21 [place] 00:00: of 00 Medicin e Preoperati Preoperati Disease Active 2015-09 [facility] ve ve 10-21 [place] cardiovasc cardiovasc 00:00: of ular ular 00 Medicin examinatio examinatio e n n Focal Focal Disease Recurre 2015-[address] [facility] seizure seizure nce 2-06 [facility] Center Seizure Seizure Disease Recurre 2015-[address] [facility] [address] nce 2-06 [facility] Center Colon Colon Disease Recurre 2015-[address] [facility] cancer cancer nce 2-06 [facility] Center Alcohol Alcohol Disease Active 2015-[address] [facility] abuse abuse 206 [facility] 00[facility] Center Hyperlipid Hyperlipid Disease Active 2015-[address] emia emia 206 [facility] 00:[facility] 00 Center BPH BPH Disease Active 2015-[address] [facility] (benign (benign 2 [facility] prostatic prostatic 00:00: Medi emmanuel hyperplasi hyperplasi 00 Ce nter a) a) Sleep Sleep Disease Active [facility] apnea apnea 5-14 College 00:00: of 00 Medicin e Chest Chest Disease Active [facility] tightness tightness -14 Юлия ege 00:00: of 00 Medicin e Muscle Muscle Disease Active 2009-09 [facility] wasting wasting 10-10 College 00:00: of 00 Medicin e Decreased Decreased Disease Active 2009-09 [facility] appetite appetite 10-10 Colleg e 00:00: of 00 Medicin e Irritable Irritable Disease Active 2009-09 [facility] 1-29 College 00:00: of 00 Medicin e ADENOCARCI ADENOCARCI Disease Active B roly NOMANAYLA, 3-14 College COLON COLON 00:00: of 00 Medicin e DYSPNEA ON DYSPNEA ON Disease Active B roly EXERTION EXERTION 8-15 Colleg e 00:00: of 00 Medicin e COUGH COUGH Disease Active [facility] 8-15 College 00:00: of 00 Medicin [...] Group Penile Penile Problem Common pain pain [facility] [id number] Incomplete Problem Co mmon emptying Spirit of bladder [facility] [id number] BPH loc w Problem Com mon urin [facility] obs/LUTS - [facility] [id number] Pain in Problem Comm on [id number] left [facility] testicle [facility] [id number] 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[facility] 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 [facility] [id number] [place] [id number] 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 [facility]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 [facility] Neoplasm Neoplasm Problem Commo n of of Spirit uncertain uncertain - CH I behavior behavior St of left of left [facility] ureter ureter [facility] [id number] Jock itch Problem Com mon Spirit [facility] Pain due Neoplasm Problem Commo n to related Spirit neoplastic pain - [facility] disease (acute) (chronic) [facility] 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) [facility] [id number] Ureter Problem Common filling [facility] defect [facility] [id number] Pelvic Problem Commo n [id number] pain in Spirit male [facility] [id number] 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 [facility] [id number] 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 - [facility] 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 Spir it [facility] [id number] Deep left Problem Co mmon [id number] inguinal Spirit pain [facility] [id number] Hip pain, Problem Comm on left [facility] [id number] Other Problem Common retention Spirit of urine [facility] [id number] 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 - [facility] ureter [facility] [id number] Pain of Problem Commo n left femur [facility] [id number] Status Problem Common post [facility] ureteral - [facility] reimplanta [facility] [id number] Epididymit Problem Com mon is, left [facility] [id number] Ureteral Problem Commo n stricture, [facility] [id number] Bladder Problem Commo n tumor [facility] [id number] Ureter, Problem Common ectopic [facility] [id number] Other Problem Common postproced [facility] ural - [facility] complicati [facility] genitourin asif system [id number] OAB Problem Common (overactiv Spirit e bladder) [facility] [id number] Pain, Problem Commo n [id number] joint, Spirit shoulder, - [facility] Malignant Malignant Problem Com mon tumor of neoplasm Spirit ureter of [facility] unspecifie [facility] Bladder Bladder Problem Common cancer cancer [facility] Allergies, Adverse Reactions, Alerts Allergy Allergy Status Severity Reaction(s) Onset Inactive Treating Comm ents Source Name Type Date Date Clinician Hydromor Propensi Active hallucina [facility] phone ty to 05-03 tions [facility] adverse 00:00: Medical reaction 00 [place] s HYDROMOR Allergy Active [facility] PHONE 05-03 [facility] Medical [facility] Center HYDROMOR DRUG Active Hallucinates Un pili PHONE INGREDI 05-03 ity of 00:00: [address] Branch delavird delavird Active Unknown Commo n ine ine [facility] hydromor hydromor Active Unknown Commo n phone phone [facility] - [facility] NO KNOWN Allergy Active [facility] S NO KNOWN Drug Active Univers ALLERGIE Class ity of S [place] [facility] Social History Social Habit Start Date Stop Date Quantity Comments Source History [facility] Places Medical Ce nter Lived History of Common Spirit - Tobacco Use [facility] Exposure to 2022-05-22 2022-06-01 Not sure University of SARS-CoV-2 00:00:00 18:44:00 [facility] (event) Branch Alcohol intake 2022-05-03 2022-05-03 Current drinker of CH I [facility] 00:00:00 00:00:00 alcohol (finding) Medical Center History [facility] 2022-01-04 2022-01-04 2 [facility] Housing Unable 00:00:00 00:00:00 Medical Ce nter to Pay History [facility] 2022-01-04 2022-01-04 2 [facility] Housing Homeless 00:00:00 00:00:00 Medical Center Last Year Tobacco use and 2022-01-03 2022-01-[address] [facility] exposure 00:00:00 00:00:00 [facility] Alcohol Comment 2021-07-07 2021-07-07 wine [facility] 00:00:00 [facility] Tobacco Comment 2016-08-25 2016-08-25 smokes pipe x6 [facility] yrs; previously Medical C enter educated Sex Assigned At [birth year] [facility] 00:00:00 00:00:00 Hospital Smoking Status Start Date Stop Date Source Former Smoker 2022-10-13 00:00:00 2022-10-13 Common Sp[facility] 00[facility]00 [facility] Medical Ce nter Social History 2021-12-12 22:47:18 [facility] Occasional tobacco smoker 2012-01-25 00:00:00 [facility] Medications Ordered Filled Start Stop Current Ordering Indication Dosage Frequency Signature Comments Components Source Medication Medication Date Date Medication? Clinician (SIG) Name Name BCG BCG No 50mg Common 2-01 Spirit 00:00: - [facility] 00 [facility] BCG BCG 2023-0 No 50mg Common 2-01 Spirit 00:00: - [facility] 00 [facility] Amoxicillin Amoxicillin 2023-0 2023- No 1{table [...] Common 10-06 Spirit 00:00: - [facility]I 00 [facility] BCG BCG 2023-0 No 50mg Common 10-06 Spirit 00:00: - [facility]I 00 [facility] BCG BCG 2023-0 No 50mg Common 10-06 Spirit 00:00: - [facility]I 00 [facility] BCG BCG 2023-0 No 50mg Common 09-29 Spirit 00:00: - [facility]I 00 [facility] BCG BCG 2023-0 No 50mg Common 09-29 Spirit 00:00: - [facility]I 00 [facility] BCG BCG 2023-0 No 50mg Common 09-29 Spirit 00:00: - [facility]I 00 [facility] BCG BCG 2023-0 No 50mg Common 09-29 Spirit 00:00: - [facility]I 00 [facility] Amoxicillin Amoxicillin 2023-0 2023- No 1{table BID Amoxicilli -Pot -Pot 09-19 t} n-Pot Clavulanate Clavulanate 00:00: 00:00 Clavulanat 875-125 MG 875-125 MG 00 :00 e 875-125 MG BCG BCG 2023-0 No 50mg Common 09-15 Spirit 00:00: - [facility]I 00 [facility] BCG BCG 2023-0 No 50mg Common 09-15 Spirit 00:00: - [facility]I 00 [facility] BCG BCG 2023-0 No 50mg Common 09-15 Spirit 00:00: - [facility]I 00 [facility] BCG BCG 2023-0 No 50mg Common 09-15 Spirit 00:00: - [facility]I 00 [facility] BCG BCG 2022-0 No 50mg Common 1- Spirit 00:00: - [facility]I 00 [facility] BCG BCG 2022-0 No 50mg Common - Spirit 00:00: - [facility]I 00 [facility] BCG BCG 2021-1 No 50mg Common 2- Spirit 00:00: - CHI 00 [facility] BCG BCG 2021-1 No 50mg Common 2- Spirit 00:00: - CHI 00 [facility] BCG BCG 2021-1 No 50mg Common 2- Spirit 00:00: - [facility]I 00 [facility] BCG BCG 2021-1 No 50mg Common 2- Spirit 00:00: - [facility]I 00 [facility] BCG BCG 2021-1 No 50mg Common 2- Spirit 00:00: - [facility]I 00 [facility] BCG BCG 2021-1 No 50mg Common 2- Spirit 00:00: - [facility]I 00 [facility] BCG BCG 2021-1 No 50mg Common 2- Spirit 00:00: - [facility]I 00 [facility] BCG BCG 2021-1 No 50mg Common 2- Spirit 00:00: - [facility]I 00 [facility] BCG BCG 2021-1 No 50mg Common 2- Spirit 00:00: - [facility]I 00 [facility] BCG BCG 2021-1 No 50mg Common 2- Spirit 00:00: - [facility]I 00 [facility] BCG BCG 2021-1 No 50mg Common 2- Spirit 00:00: - [facility]I 00 [facility] BCG BCG 2021-1 No 50mg Common 2- Spirit 00:00: - [facility]I 00 [facility] BCG BCG 2021-1 No 50mg Common 2- Spirit 00:00: - [facility]I 00 [facility] BCG BCG 2021-1 No 50mg Common 2- Spirit 00:00: - [facility]I 00 [facility] BCG BCG 2021-1 No 50mg Common 2- Spirit 00:00: - [facility]I 00 [facility] Lidocaine Lidocaine 2021-1 No 10mg Com mon 2- Spirit 00:00: - [facility]I 00 [facility] Kenalog Kenalog 2021-1 No 40mg Common (Triamcinol (Triamcinol 2-07 S pirit one) one) 00:00: - CHI 00 [facility] Lidocaine Lidocaine 2021- No 10mg Com 10-19 Spirit 00:00: - [facility]I 00 [facility] Kenalog Kenalog 2021- No 40mg Common (Triamcinol (Triamcinol 2-07 S pirit one) one) 00:00: - CHI 00 [facility] Lidocaine Lidocaine 2021- No 10mg Com 10-19 Spirit 00:00: - [facility]I 00 [facility] Kenalog Kenalog 2021-09 No 40mg Common (Triamcinol (Triamcinol 2-07 S pirit one) one) 00:00: - [facility]I 00 [facility] Lidocaine Lidocaine 2021- No 10mg Com 10-19 Spirit 00:00: - [facility]I 00 [facility] Kenalog Kenalog 2021-09 No 40mg Common (Triamcinol (Triamcinol 2-07 S pirit one) one) 00:00: - [facility]I 00 [facility] Lidocaine Lidocaine 2021- No 10mg Com 10-19 Spirit 00:00: - [facility]I 00 [facility] Kenalog Kenalog 2021- No 40mg Common (Triamcinol (Triamcinol 2-07 S pirit one) one) 00:00: - [facility]I 00 [facility] Lidocaine Lidocaine 2021- No 10mg Com 10-19 Spirit 00:00: - [facility]I 00 [facility] Kenalog Kenalog 2021- No 40mg Common (Triamcinol (Triamcinol 2-07 S pirit one) one) 00:00: - [facility]I 00 [facility] Lidocaine Lidocaine 2021- No 10mg Com 10-19 Spirit 00:00: - [facility]I 00 [facility] Kenalog Kenalog 2021- No 40mg Common (Triamcinol (Triamcinol 2-07 S pirit one) one) 00:00: - CHI 00 [facility] Lidocaine Lidocaine 2021- No 10mg Com 10-19 Spirit 00:00: - [facility]I 00 [facility] Kenalog Kenalog 2021- No 40mg Common (Triamcinol (Triamcinol 2-07 S piralfredo goodwin) one) 00:00: - CHI 00 [facility] Trospium Trospium 2021-3- No 1{table BID Trospium Chloride 20 Chloride 20 2-10 15-02 t} Chloride MG MG 00:00: 00:00 20 MG 00 :00 Trospium Trospium 2021- 2023- No 1{table BID Trospium Chloride 20 Chloride 20 2-10 15-02 t} Chloride MG MG 00:00: 00:00 20 MG 00 :00 Trospium Trospium 2021- 2023- No 1{table BID Trospium Chloride 20 Chloride 20 -10 15- t} Chloride MG MG 00:00: 00:00 20 MG 00 :00 Trospium Trospium 2021-3- No 1{table BID Trospium Chloride 20 Chloride 20 10-14- t} Chloride MG MG 00:00: 00:00 20 MG 00 :00 Trospium Trospium 2021- 2023- No 1{table BID Trospium Chloride 20 Chloride 20 10-14-02 t} Chloride MG MG 00:00: 00:00 20 MG 00 :00 Trospium Trospium 2021- 2023- No 1{table BID Trospium Chloride 20 Chloride 20 -10 15-02 t} Chloride MG MG 00:00: 00:00 20 MG 00 :00 Trospium Trospium 2021- 2023- No 1{table BID Trospium Chloride 20 Chloride 20 10-14-02 t} Chloride MG MG 00:00: 00:00 20 MG 00 :00 Trospium Trospium 2021- 2023- No 1{table BID Trospium Chloride 20 Chloride 20 10-14-02 t} Chloride MG MG 00:00: 00:00 20 MG 00 :00 carbidopa-l 2021-09- No 1{tbl} Q.5D TAKE 1 M ethodi evodopa 0-31 -30 TABLET BY (SINEMET 00:00: 05:59 MOUTH 2 Hospi ta CR) 50-200 00 :00 (TWO) l mg per CR TIMES A tablet DAY FOR 90 DAYS. carbidopa-l 2021-09- No 1{tbl} Q.5D TAKE 1 M ethodi evodopa 0-31 -[address] (SINEMET 00:00: 05:59 MOUTH 2 Hospi ta CR) 50-200 00 :00 (TWO) l mg per CR TIMES A tablet DAY FOR 90 DAYS. carbidopa-l 2021-09- No 1{tbl} Q.5D TAKE 1 M ethodi evodopa 0-31 -[address] (SINEMET 00:00: 05:59 MOUTH 2 Hospi ta CR) 50-200 00 :00 (TWO) l mg per CR TIMES A tablet DAY FOR 90 DAYS. carbidopa-l 2021-09- No 1{tbl} Q.5D TAKE 1 M ethodi evodopa 0-31 -[address] (SINEMET 00:00: 05:59 MOUTH 2 Hospi ta CR) 50-200 00 :00 (TWO) l mg per CR TIMES A tablet DAY FOR 90 DAYS. apixaban 0 Yes 2.5mg Q.5D Take 2.5 [...] MG 09:33: daily. Medical tablet 29 Center econazole 2021-0 Yes QD Apply [facility] nitrate 8-25 topically [facility] (SPECTAZOLE 09:33: daily. [facility] emmanuel ) 1 % cream 29 [...] nitrate 8-25 topically [facility] (SPECTAZOLE 09:33: daily. [facility] emmanuel ) 1 % cream 29 Center tamsulosin 2021-0 Yes .4mg QD Take 0.[address] [facility] (FLOMAX) 8-25 mg by [facility] 0.4 mg Cp24 09:33: mouth Medic al 24 hr 29 nightly. Center capsule finasteride 2021-0 Yes 5mg QD Take [address] (PROSCAR) 5 8-25 by mouth Luke s mg tablet 09:33: nightly. [facility] emmanuel 29 Center silver 2021-0 Yes QD Apply [facility] sulfADIAZIN 8-25 topically Kristopher es E 09:33: daily. Medical ([facility], 29 [facility]) 1 % cream famotidine 2021-0 [...] nitrate 8-25 topically [facility] (SPECTAZOLE 09:33: daily. [facility] ) 1 % cream 29 Center tamsulosin 2021-0 Yes .4mg QD Take 0.[address] (FLOMAX) 8-25 mg by [facility] 0.4 mg Cp24 09:33: mouth Medic al 24 hr 29 nightly. [place] capsule finasteride 2021-0 Yes 5mg QD Take [address] (PROSCAR) 5 8-25 by mouth Luke s mg tablet 09:33: nightly. [facility] emmanuel 29 [place] silver 2021-0 Yes QD Apply [facility] sulfADIAZIN 8-25 topically Kristopher es E 09:33: daily. Medical ([facility], 29 [facility]) 1 % cream famotidine 2-0 Yes 20mg Q.5D Take 20 mg C [...] times daily. meclizine Yes Take by Jemal taylor (ANTIVERT) 5-04 mouth. College 12.5 MG 11:52: of tablet 07 Medicin e B 2021- No Take by [facility]-F 5-04 05-04 mouth. Colle ge olic Acid 11:51: 00:00 of (NEPHRO-VIT 48 :00 Medicin E) 0.8 MG e TABS lisinopriL 2021- No hypertensio 20mg QD Take [address] [address] (PRINIVIL,Z 4-26 04-26 n by mouth Kristopher es ESTRIL) 20 13:05: 00:00 daily. Medi emmanuel MG tablet 14 :00 [place] lisinopriL 2021- No hypertensio 20mg QD Take [address] (PRINIVIL,Z 4-26 04-26 n by mouth Kristopher es ESTRIL) 20 13:05: 00:00 daily. Medi emmanuel MG tablet 14 :00 [place] lisinopriL 2021- No hypertensio 20mg QD Take [address] (PRINIVIL,Z 4-26 04-26 n by mouth Kristopher es ESTRIL) 20 13:05: 00:00 daily. Medi emmanuel MG tablet 14 :00 [place] lisinopriL 2021- No hypertensio 20mg QD Take [address] (PRINIVIL,Z 4-26 04-26 n by mouth Kristopher es ESTRIL) 20 13:05: 00:00 daily. Medi emmanuel MG tablet 14 :00 [place] lisinopriL 2021- No hypertensio 20mg QD Take [address] (PRINIVIL,Z 4-26 04-26 n by mouth Kristopher es ESTRIL) 20 13:05: 00:00 daily. Medi emmanuel MG tablet 14 :00 [place] lisinopriL Yes hypertensio 20mg QD Take [address] [facility] (PRINIVIL,Z 4-26 n tablet (20 Tracy kes ESTRIL) 20 00:00: mg total) Me dical MG tablet 00 by mouth Center daily Hold this medication until you see your primary care doctor and have blood work repeated. lisinopriL 2021-0 Yes hypertensio 20mg QD Take 1 CHI [...] times daily for 7 days. ciprofloxac 0 202- No 500mg Q.5D Take [address] in HCl 4-26 05-03 tablet [facility] (CIPRO) 500 00:00: 23:59 (500 mg Me dical MG tablet 00 :00 total) by Cente r mouth 2 (two) times daily for 7 days. ciprofloxac 0 202- No 500mg Q.5D Take [address] in HCl 4-26 05-03 tablet [facility] (CIPRO) 500 00:00: 23:59 (500 mg Me dical MG tablet 00 :00 total) by Cente r mouth 2 (two) times daily for 7 days. amoxicillin Yes TAKE 1 [facility] -clavulanat 4-21 TABLET BY [facility] legmaddy e 00:00: MOUTH of (AUGMENTIN) 00 EVERY 8 Medic in 500-125 MG HOURS FOR e per tablet 7 DAYS dexamethaso Yes TAKE 1 [facility] ne 4-18 TABLET BY [place] (DECADRON) 00:00: MOUTH of 4 MG tablet 00 TWICE A Medic in DAY e Robaxin 500 Yes 500 mg = 1 Memoria mg oral 4-11 tab, PO, l tablet 19:16: QID, X 7 Fredo 00 day, # 28 tab, 0 Refill(s), Pharmacy: [id number], 180.34, cm, 12/12/21 18:09:00 CDT, Height, 94.545, kg, 12/12/21 18:09:00 CDT, Weight Robaxin 500 0 Yes 500 mg = 1 Memoria mg oral 4-11 tab, PO, l tablet 19:16: QID, X 7 Nolan 00 day, # 28 tab, 0 Refill(s), Pharmacy: [id number], 180.34, cm, 12/12/21 18:09:00 CDT, Height, 94.545, kg, 12/12/21 18:09:00 CDT, Weight Robaxin 500 0 Yes 500 mg = 1 Memoria mg oral 4-11 tab, PO, l tablet 19:16: QID, X 7 Fredo 00 day, # 28 tab, 0 Refill(s), Pharmacy: [id number], 180.34, cm, 12/12/21 18:09:00 CDT, Height, 94.545, kg, 12/12/21 18:09:00 CDT, Weight Robaxin 500 Yes 500 mg = 1 Memoria mg oral 4-11 tab, PO, l tablet 19:16: QID, X 7 Nolan 00 day, # 28 tab, 0 Refill(s), Pharmacy: [id number], 180.34, cm, 12/12/21 18:09:00 CDT, Height, 94.545, kg, 12/12/21 18:09:00 CDT, Weight Robaxin 500 Yes 500 mg = 1 Memoria mg oral 4-11 tab, PO, l tablet 19:16: QID, X 7 Fredo 00 day, # 28 tab, 0 Refill(s), Pharmacy: [id number], 180.34, cm, 12/12/21 18:09:00 CDT, Height, 94.545, kg, 12/12/21 18:09:00 CDT, Weight Robaxin 500 Yes 500 mg = 1 Memoria mg oral 4-11 tab, PO, l tablet 19:16: QID, X 7 Nolan 00 day, # 28 tab, 0 Refill(s), Pharmacy: [facility] #[id number], 180.34, cm, 12/12/21 18:09:00 CDT, Height, 94.545, kg, 12/12/21 18:09:00 CDT, Weight docusate No Notes: Memoria 4-03 (Same as: l 14:00: Colace) Fredo 00 (Do Not Crush) thiamine No Notes: Memoria 4-03 (Same As: l 14:00: Vitamin Fredo 00 B1) docusate No Notes: Memoria 4-03 (Same as: l 14:00: Colace) Nolan 00 (Do Not Crush) thiamine No Notes: Memoria 4-03 (Same As: l 14:00: Vitamin Fredo 00 B1) docusate 2022-0 No Notes: Memoria 4-03 (Same as: l 14:00: Colace) Fredo 00 (Do Not Crush) thiamine No Notes: Memoria 4-03 (Same As: l 14:00: Vitamin Fredo 00 B1) docusate No Notes: Memoria 4-03 (Same as: l 14:00: Colace) Nolan 00 (Do Not Crush) thiamine No Notes: Memoria 4-03 (Same As: l 14:00: Vitamin Fredo 00 B1) docusate No Notes: Memoria 4-03 (Same as: l 14:00: Colace) Nolan 00 (Do Not Crush) thiamine No Notes: [...] PO, l tablet 22:55: Daily, 0 Fredo Refill(s) Metoprolol 0 Yes 50 mg = 1 Me moria Succinate 4-02 tab, PO, l ER 50 mg 22:55: Daily, # Sunita nn oral 00 30 tab, 0 tablet, Refill(s) extended release predniSONE Yes 20 mg = 1 Me moria 20 mg oral 4-02 tab, PO, l tablet 22:55: Daily, 0 Nolan Refill(s) Metoprolol 0 Yes 50 mg = [...] tab, PO, l tablet 22:55: Daily, 0 Nolan 00 Refill(s) Metoprolol 0 Yes 50 mg = 1 Me moria Succinate 4-02 tab, PO, l ER 50 mg 22:55: Daily, # Sunita nn oral 00 30 tab, 0 tablet, Refill(s) extended release predniSONE 2022-0 Yes 20 mg = 1 Me moria 20 mg oral 4-02 tab, PO, l tablet 22:55: Daily, 0 Fredo 00 Refill(s) carbidopa-l 2022-0 Yes 1 tab, PO, Memoria evodopa 50 4-02 BID, # 60 l mg-200 mg 22:54: tab, 0 Eliot n oral 00 Refill(s) tablet, extended release lisinopril 2022-0 Yes 20 mg = 1 Me moria 20 mg oral 4-02 tab, PO, l tablet 22:54: Daily, # Nolan 00 30 tab, 0 Refill(s) lisinopril 2022-0 Yes 20 mg = 1 Me moria 20 mg oral 4-02 tab, PO, l tablet 22:54: Daily, # Nolan 00 30 tab, 0 Refill(s) carbidopa-l 2022-0 [...] tab, PO, l tablet 22:54: Daily, # Nolan 00 30 tab, 0 Refill(s) carbidopa-l 2022-0 [...] tab, PO, l tablet 22:54: Daily, # Nolan 00 30 tab, 0 Refill(s) carbidopa-l 2021-0 [...] 4-02 Q12H, tab, l tablet 22:53: 0 Nolan 00 Refill(s), For Atrial Fibrilatio n Eliquis 5 0 Yes 5 mg, PO, Mem oria mg oral 4-02 Q12H, tab, l tablet 22:53: 0 Nolan 00 Refill(s), For Atrial Fibrilatio n Eliquis [...] 4-02 Q12H, tab, l tablet 22:53: 0 Nolan 00 Refill(s), For Atrial Fibrilatio n hydrALAZINE Yes 50 mg = 1 M emoria 50 mg oral 4-02 tab, PO, l tablet 22:52: BID, 0 Fredo 00 Refill(s) hydrALAZINE 2022-0 Yes 50 mg = 1 M emoria 50 mg oral 4-02 tab, PO, l tablet 22:52: BID, 0 Nolan 00 Refill(s) hydrALAZINE 2022-0 Yes 50 mg = 1 M emoria 50 mg oral 4-02 tab, PO, l tablet 22:52: BID, 0 Fredo 00 Refill(s) hydrALAZINE 2-0 Yes 50 mg = 1 M emoria 50 mg oral 4-02 tab, PO, l tablet 22:52: BID, 0 Nolan 00 Refill(s) hydrALAZINE 2-0 Yes 50 mg = 1 M emoria 50 mg oral 4-02 tab, PO, l tablet 22:52: BID, 0 Fredo 00 Refill(s) hydrALAZINE 2-0 Yes 50 mg = 1 M emoria 50 mg oral 4-02 tab, PO, l tablet 22:52: BID, 0 Nolan 00 Refill(s) D10W 2021-0 No 125 mL, [...] IV 4-02 999 ml/hr, l 22:32: Route: Nolan 00 IVPB, Drug Form: INJ, kg, PRN, [...] 12-12 Route: IM, l 22:06: Drug form: Nolan 00 PDR/INJ, PRN, kg, PRN Blood Glucose Results, Start date: 12/12/21 17:06:00 CDT, Duration: 30 day, Stop date: 01/11/22 17:05:00 CDT, 0 ondansetron 2021-0 No Notes: Sergei kristina 4-02 (Same as: l 22:06: Zofran) MEDICATION WASTE Product Size: 4 mg Product Wasted: ___ mg melatonin No Notes: Memori a 12-12 (Same as: l 22:06: Melatonin) acetaminoph No Notes: Do M emoria en 12-12 not exceed l 22:06: 4 gm/day. (Same as: Tylenol) Dextrose No 25 mL, Memoria 50% Syringe 12-12 Route: l (D50W) 22:06: IVP, kg, Nolan PRN, PRN Blood Glucose Results, Start date: 12/12/21 17:06:00 CDT, Duration: 30 day, Stop date: 01/11/22 17:05:00 CDT glucagon No 1 mg, Memoria 12-12 Route: IM, l 22:06: Drug form: Frdeo PDR/INJ, PRN, kg, PRN Blood Glucose Results, [...] kristina 12-12 (Same as: l 22:06: Zofran) Nolan 00 MEDICATION WASTE Product Size: 4 mg Product Wasted: ___ mg melatonin No Notes: Memori a 12-12 (Same as: l 22:06: Melatonin) acetaminoph No Notes: Do M emoria en 12-12 not exceed l 22:06: 4 gm/day. Nolan 00 (Same as: Tylenol) Dextrose No 25 mL, Memoria 50% Syringe 12-12 Route: l (D50W) 22:06: IVP, kg, Fredo 00 PRN, PRN Blood Glucose Results, Start date: 12/12/21 17:06:00 CDT, Duration: 30 day, Stop date: 01/11/22 17:05:00 CDT glucagon No 1 mg, Memoria 12-12 Route: IM, l 22:06: Drug form: Nolan PDR/INJ, PRN, kg, PRN Blood Glucose Results, Start date: 12/12/21 17:06:00 CDT, Duration: 30 day, Stop date: 01/11/22 17:05:00 CDT, 0 ondansetron No Notes: Sergei kristina 12-12 (Same as: l 22:06: Zofran) Fredo 00 MEDICATION WASTE Product Size: 4 mg Product Wasted: ___ mg melatonin No Notes: Memori a - (Same as: l 22:06: Melatonin) acetaminoph No Notes: Do M emoria en 12-12 not exceed l 22:06: 4 gm/day. Nolan 00 (Same as: Tylenol) Dextrose No 25 mL, Memoria 50% Syringe 12-12 Route: l (D50W) 22:06: IVP, kg, Fredo 00 PRN, PRN Blood Glucose Results, Start date: 12/12/21 17:06:00 CDT, Duration: 30 day, Stop date: 01/11/22 17:05:00 CDT glucagon No 1 mg, Memoria 12-12 Route: IM, l 22:06: Drug form: Nolan 00 PDR/INJ, PRN, kg, PRN Blood Glucose Results, Start date: 12/12/21 17:06:00 CDT, Duration: 30 day, Stop date: 01/11/22 17:05:00 CDT, 0 ondansetron No Notes: Sergei kristina 12-12 (Same as: l 22:06: Zofran) Nolan 00 MEDICATION WASTE Product Size: 4 mg Product Wasted: ___ mg melatonin No Notes: Memori a 12-12 (Same as: l 22:06: Melatonin) acetaminoph No Notes: Do M emoria en 12-12 not exceed l 22:06: 4 gm/day. Nolan 00 (Same as: Tylenol) Dextrose No 25 mL, Memoria 50% Syringe 12-12 Route: l (D50W) 22:06: IVP, kg, Fredo 00 PRN, PRN Blood Glucose Results, Start date: 12/12/21 17:06:00 CDT, Duration: 30 day, Stop date: 01/11/22 17:05:00 CDT glucagon No 1 mg, Memoria 12-12 Route: IM, l 22:06: Drug form: Nolan 00 PDR/INJ, PRN, kg, PRN Blood Glucose Results, Start date: 12/12/21 17:06:00 CDT, Duration: 30 day, Stop date: 01/11/22 17:05:00 CDT, 0 ondansetron No Notes: Sergei kristina 12-12 (Same as: l 22:06: Zofran) Fredo 00 MEDICATION WASTE Product Size: 4 mg Product Wasted: ___ mg melatonin No Notes: Memori a - (Same as: l 22:06: Melatonin) acetaminoph No Notes: Do M emoria en 12-12 not exceed l 22:06: 4 gm/day. (Same as: Tylenol) metoprolol Yes 50 mg = 1 Ba ylor (TOPROL-XL) 12-12 tab, PO, Юлия ege 50 MG XL 00:00: Daily, # of tablet 00 30 tab, 0 Medicin Refill(s) e Carbidopa-L Yes 1 tab, PO, [facility] evodopa CR 12-12 BID, # 60 Юлия [...] day for 90 days. gabapentin 2020-09 Yes [id number] 3 (three) [facility] (NEURONTIN) 0-[id number] 100 mg 00:00: 3D day. Hospita capsule 00 l gabapentin 2020-09 Yes Q.[id number] 3 (three) [facility] (NEURONTIN) 0-[id number] 100 mg 00:00: 3D day. Hospita capsule 00 l gabapentin 2020-09 Yes Q.[id number] 3 (three) [facility] (NEURONTIN) 0-[id number] 100 mg 00:00: 3D day. Hospita capsule 00 l gabapentin 2020-09 Yes Q.[id number] 3 (three) [facility] (NEURONTIN) 0-[id number] 100 mg 00:00: 3D day. Hospita capsule 00 l gabapentin 2020-09 Yes Q.[id number] 3 (three) [facility] (NEURONTIN) 0-[id number] 100 mg 00:00: 3D [...] 00:00: day. Hospita tablet 00 l hydrALAZINE 1-0 Yes Q.5D 2 (two) [facility] (APRESOLINE 9-[address] ) 50 MG 00:00: day. Hospita tablet 00 l hydrALAZINE 2020- Yes 50 mg = 1 B aylor (APRESOLINE 06-03 tab, PO, Юлия ege ) 50 MG 00:00: BID, 0 of tablet 00 Refill(s) Medicin e tamsulosin 2020-0 Yes [facility] (FLOMAX) 06-02 st 0.4 mg 00:00: Hospita capsule 00 l tamsulosin 2020-0 Yes [facility] (FLOMAX) 9 st 0.4 mg 00:00: Hospita capsule 00 l tamsulosin 2020-0 Yes [facility] (FLOMAX) 9- st 0.4 mg 00:00: Hospita capsule 00 l tamsulosin 2020-0 Yes [facility] (FLOMAX) 06-02 st 0.4 mg 00:00: Hospita capsule 00 l tamsulosin 2020-0 Yes [facility] (FLOMAX) 06-02 st 0.4 mg 00:00: Hospita capsule 00 l Tamsulosin 2020-0 Yes [facility] HCl 0.4 MG 06-02 [facility] 00:00: of 00 Medicin e Eliquis 5 [...] mg 24 hr tablet carbidopa-l 2020-0 Yes [id number] 1{tbl} Take 1 Univers evodopa 1-29 tablet by ity of 25-100 mg 00:00: mouth 3 [place] tablet 00 (three) Medical times Branch daily. carbidopa-l 2021-0 Yes [id number] 1{tbl} Take 1 Univers evodopa 1-29 tablet by ity of 25-100 mg 00:00: mouth 3 [place] tablet 00 (three) Medical times Branch daily. apixaban 2020-0 Yes [id number] 5mg Take 1 Univers (ELIQUIS) 5 1-07 tablet by ity of mg tablet 00:00: mouth 2 [place] 00 (two) Medical times Branch daily. Indication s: atrial fibrillati on apixaban 2021-0 Yes 1358 5mg Take 1 Univers (ELIQUIS) 5 1-07 tablet by ity of mg tablet 00:00: mouth 2 [place] 00 (two) Medical times Branch daily. Indication s: atrial fibrillati on nortriptyli 2019-09 Yes 50mg Take 50 mg Univers ne 50 mg 2-28 by mouth ity of capsule 11:32: at [place] [address] bedtime. Medical Branch finasteride 2019-09 Yes 5mg Take 5 mg U nivers 5 mg tablet 2-28 by mouth ity of 11:32: daily. [place] [address] Medical Branch nortriptyli 2019-09 Yes 50mg Take 50 mg Univers ne 50 mg 2-28 by mouth ity of capsule 11:32: at [place] 42 bedtime. Medical Branch finasteride 2019-09 Yes 5mg Take 5 mg U nivers 5 mg tablet 2-28 by mouth ity of 11:32: daily. [place] [address] Medical Branch tamsulosin 2019-09 Yes .4mg Take 0.4 Uni vers (FLOMAX) 2-28 mg by ity of 0.4 mg 24 11:28: mouth [place] hr capsule 44 daily. Medical Branch magnesium 2019-09 Yes Take by Unive rs oxide 400 2-28 mouth ity of mg 11:28: daily. [place] magnesium 44 Indication Medi emmanuel capsule s: Branch "supposed to help with my balance problem" tamsulosin 2019-09 Yes .4mg Take 0.4 Uni vers (FLOMAX) 2-28 mg by ity of 0.4 mg 24 11:28: mouth [place] hr capsule 44 daily. Medical Branch magnesium 2019-09 Yes Take by Unive rs oxide 400 2-28 mouth ity of mg 11:28: daily. [place] magnesium 44 Indication Medi emmanuel capsule s: Branch "supposed to help with my balance problem" lisinopriL 2019-09 Yes [id number] 10mg Take 1 U nivers 10 mg 2-17 tablet by ity of tablet 00:00: mouth [place] 00 daily. Medical Branch lisinopriL 2019-09 Yes [id number] 10mg Take 1 U nivers 10 mg 2-17 tablet by ity of tablet 00:00: mouth [place] 00 daily. Medical Branch hydrALAZINE 2019-09 Yes [id number] 50mg Take 1 Univers 50 mg 0-15 tablet by ity of tablet 00:00: mouth 2 [place] 00 (two) Medical times Branch daily. hydrALAZINE 2019-09 Yes [id number] 50mg Take 1 Univers 50 mg 0-15 tablet by ity of tablet 00:00: mouth 2 [place] 00 (two) Medical times Branch daily. levetiracet 2021- No TAKE 1 [place] maira am (KEPPRA) 03-16 TABLET BY Co llege 500 MG 00:00: 00:00 MOUTH of tablet 00 :00 TWICE Medicin DAILY e finasteride 2015-09 Yes TK 1 T PO B aylor (PROSCAR) 5 2-26 QD College MG tablet 00:00: of 00 Medicin e Cyanocobala 2015-09- No 1000ug Take 1,000 Dominick min 10-21- mcg by [place] (VITAMIN 00:00: 00:00 mouth of B-12 CR) 00 :00 daily. Medicin 1000 MCG e TBCR sildenafil 2021- No 50mg 1 Tab. [place] citrate 01-29 take 1 hr Colleg e (VIAGRA) 50 00:00: 00:00 before of MG tablet 00 :00 sexual Medicin activity e ASPIRIN 81 2006-09 Yes po qd Dominick MG PO TABS 1-27 [place] 00:00: of 00 Medicin e PRED FORTE 2021- No 1 gtt os Ba ylor 1 % OP SUSP 01-17 q4 [place] 00:00: 00:00 of 00 :00 Medicin e [...] rsity of MODERNA VACCINE 00:00:00 [facility] ical Branch SARS-COV-2 COVID-19 2021-05-20 Completed Unive rsity of MODERNA 12+ YRS 00:00:00 [facility] ical VACCINE Branch SARS-COV-2 COVID-19 2020-10-15 Completed Unive rsity of MODERNA VACCINE 00:00:00 [facility] ica Branch SARS-COV-2 COVID-19 2020-10-15 Completed Unive rsity of MODERNA 12+ YRS 00:00:00 [facility] ical VACCINE Branch SARS-COV-2 COVID-19 2020-09-17 Completed Unive rsity of MODERNA VACCINE 00:00:00 [facility] ical Branch SARS-COV-2 COVID-19 2020-09-17 Completed Unive rsity of MODERNA 12+ YRS 00:00:00 [facility] VACCINE Branch Pneumococcal 2019-10-05 Completed University o f Polysaccharide, 00:00:00 [facility] ica PPSV23 (PNEUMOVAX) Branch Pneumococcal 2019-10-05 Completed University o f Polysaccharide, 00:00:00 [facility] PPSV23 (PNEUMOVAX) Branch Influenza High Dose 2019-06-12 Completed Unive rsity of 00:00:00 [facility] [place] [facility] Influenza High Dose 2019-06-12 Completed Unive rsity of 00:00:00 [facility] [place] [facility] Hepatitis A Adult 2019-03-29 Completed Univers ity of 00:00:00 [facility] [place] [facility] Hepatitis A Adult 2019-03-29 Completed Univers ity of 00:00:00 [facility] [place] [facility] DTAP 2019-03-12 Completed University of 00:00:00 [facility] [place] [facility] DTAP 2019-03-12 Completed University of 00:00:00 [facility] [place] [facility] HEPATITIS A 2018-09-29 Completed University of 00:00:00 [facility] [place] [facility] TDAP 2018-09-29 Completed University of 00:00:00 [facility] [place] [facility] HEPATITIS A 2018-09-29 Completed University of 00:00:00 [facility] [place] [facility] TDAP 2018-09-29 Completed University of 00:00:00 [facility] [place] [facility] Pneumococcal 2016-08-[address] [facility] Polysaccharide [...] Ce nter (Pneumovax) Influenza (whole) 2016-06-10 Completed [facility] 00:00:00 of Medicine Td 2016-02-09 Completed University of 00:00:00 [facility] [place] [facility] Td 2016-02-09 Completed University of 00:00:00 [facility] [place] [facility] Influenza (whole) 2007-07-26 Completed [facility] 00:00:00 of Medicine Influenza (whole) 2006-06-15 Completed [facility] 00:00:00 of Medicine Influenza (whole) 2006-03-09 Completed [facility] 00:00:00 of Medicine Influenza (whole) 2005-11-10 Completed [facility] 00:00:00 of Medicine Influenza (whole) 2005-08-11 Completed [facility] 00:00:00 of Medicine Vital Signs Vital Name Observation Time Observation Value Comments Source height 2022-10-13 13:00:00 71 [in_i] [facility] weight 2022-10-13 13:00:00 214 [lb_av] [facility] temperature 2022-10-13 13:00:00 98.6 [degF] [facility] bmi 2022-10-13 13:00:00 29.84 kg/m2 [facility] height 2022-10-06 13:00:00 71 [in_i] [facility] weight 2022-10-06 13:00:00 214 [lb_av] Common [facility] p[facility] temperature 2022-10-06 13:00:00 98.6 [degF] Common S pirit [facility] bmi 2022-10-06 13:00:00 29.84 kg/m2 [facility] oximetry 2022-10-06 13:00:00 94 % Common S pirit [facility] blood pressure 2022-10-06 13:00:00 132 mm[Hg] [facility] - systolic [facility] blood pressure 2022-10-06 13:00:00 68 mm[Hg] [facility] - diastolic [facility] height 2022-09-15 15:15:00 71 [in_i] Common S pirit [facility] weight 2022-09-15 15:15:00 214 [lb_av] Common S pirit [facility] temperature 2022-09-15 15:15:00 98.6 [degF] Common S pirit [facility] bmi 2022-09-15 15:15:00 29.84 kg/m2 [facility] S pirit [facility] oximetry 2022-09-15 15:15:00 96 % [facility] respiratory rate 2022-09-15 15:15:00 16 /min [facility] blood pressure 2022-09-15 15:15:00 126 mm[Hg] [facility] - systolic [facility] blood pressure 2022-09-15 15:15:00 68 mm[Hg] [facility] - diastolic [facility] height 2022-09-08 13:00:00 71 [in_i] Common S pirit [facility] weight 2022-09-08 13:00:00 214 [lb_av] [facility] temperature 2022-09-08 13:00:00 97.3 [degF] Common S pirit [facility] bmi 2022-09-08 13:00:00 29.84 kg/m2 [facility] oximetry 2022-09-08 13:00:00 99 % Common S pirit [facility] blood pressure 2022-09-08 13:00:00 136 mm[Hg] Common [facility] - systolic [facility] blood pressure 2022-09-08 13:00:00 84 mm[Hg] [facility] - diastolic [facility] height 2022-09-01 13:15:00 71 [in_i] Common [facility] weight 2022-09-01 13:15:00 214 [lb_av] Common S [facility] temperature 2022-09-01 13:15:00 97.8 [degF] [facility] bmi 2022-09-01 13:15:00 29.84 kg/m2 Common S [facility] oximetry 2022-09-01 13:15:00 96 % Common S [facility] respiratory rate 2022-09-01 13:15:00 16 /min [facility] blood pressure 2022-09-01 13:15:00 154 mm[Hg] Common [facility] - systolic [facility] blood pressure 2022-09-01 13:15:00 68 mm[Hg] Common [facility] - diastolic [facility] Systolic blood 2022-06-01 23:52:00 132 mm[Hg] Univer sity of pressure [facility] [place] [facility] Diastolic blood 2022-06-01 23:52:00 71 mm[Hg] Unive rsity of pressure [facility] [place] [facility] Heart rate 2022-06-01 23:48:00 114 /min Universi ty of [facility] [place] [facility] Body temperature 2022-06-01 23:48:00 36.89 Pattie Univ ersity of [facility] [place] [facility] Respiratory rate 2022-06-01 23:48:00 18 /min Univ ersity [facility] Body height 2022-06-01 23:48:00 180.3 cm Universi ty of [facility] [place] [facility] Body weight 2022-06-01 23:48:00 101.424 kg [facility] BMI 2022-06-01 23:48:00 31.19 kg/m2 [facility] Oxygen saturation in 2022-06-01 23:48:00 97 /min University Arterial blood by [facility] Pulse oximetry Branch HEIGHT 2022-05-03 07:32:00 180.3 cm WEIGHT 2022-05-03 07:32:00 100.699 kg HEIGHT 2022-05-03 07:32:00 180.3 cm WEIGHT 2022-05-03 07:32:00 100.699 kg HEIGHT 2022-05-03 07:32:00 180.3 cm WEIGHT 2022-05-03 07:32:00 100.699 kg Systolic blood 2022-01-13 16:42:00 116 mm[Hg] [facility] pressure Medicine Diastolic blood 2022-01-13 16:42:00 70 mm[Hg] [facility] Medicine Heart rate 2022-01-13 16:42:00 77 /min [facility] Body height 2022-01-13 16:42:00 180.3 cm [facility] Body weight 2022-01-13 16:42:00 92.987 kg [facility] BMI 2022-01-13 16:42:00 28.59 kg/m2 [facility] Systolic blood 2022-05-03 17:31:00 97 mm[Hg] [facility] Diastolic blood 2022-05-03 17:31:00 50 mm[Hg] [facility] Heart rate 2022-05-03 17:31:00 96 /min [facility] Body temperature 2022-05-03 17:31:00 35.94 Pattie [facility] Respiratory rate 2022-05-03 17:31:00 18 /min [facility] Oxygen saturation in 2022-05-03 17:31:00 100 /min [facility] Arterial blood by Medical nter Pulse oximetry Body height 2022-05-03 07:32:00 180.3 cm [facility] Body weight 2022-05-03 07:32:00 100.699 kg [facility] BMI 2022-05-03 07:32:00 30.96 kg/m2 [facility] Heart Rate 2021-12-13 01:12:24 [facility] Respitory Rate 2021-12-13 01:12:24 Memori al Fredo Systolic (mm Hg) 2021-12-13 01:12:14 Sergei rial Fredo Diastolic (mm Hg) 2021-12-13 01:12:14 Mem orial Fredo Heart Rate 2021-12-13 01:12:14 [facility] Temperature Oral (F) 2021-12-13 01:11:50 97.6 F [facility] Height 2021-12-12 23:09:00 180.34 cm [facility] Weight 2021-12-12 23:09:00 [facility] BMI Calculated 2021-12-12 23:09:00 Memori al [facility] Heart Rate 2021-12-12 22:02:05 [facility] Respitory Rate 2021-12-12 22:02:05 Memori al Fredo Systolic (mm Hg) 2021-12-12 22:01:44 Sergei rial Nolan Diastolic (mm Hg) 2021-12-12 22:01:44 Mem orial Fredo Temperature Oral (F) 2021-12-12 22:00:54 97.7 F [facility] Systolic blood 2021-07-07 18:25:00 123 mm[Hg] [facility] pressure Diastolic blood 2021-07-07 18:25:00 72 mm[Hg] [facility] pressure Heart rate 2021-07-07 18:25:00 84 /min [facility] Body temperature 2021-07-07 18:17:00 36.28 [facility] Body height 2021-07-07 18:17:00 177.8 cm [facility] Body weight 2021-07-07 18:17:00 93.895 kg [facility] BMI 2021-07-07 18:17:00 29.70 kg/m2 [facility] Procedures Procedure Date / Time Performing Clinician Source Performed IR NEPHROSTOMY TUBE 2022-05-03 13:35:00 Milad Mendez [facility] - LEFT Center POCT-GLUCOSE METER 2022-05-03 09:23:00 Milad Mendez [facility] CBC W/PLT COUNT & AUTO 2022-05-03 09:17:00 Kelle Velazco [facility] PROTHROMBIN TIME/INR 2022-05-03 09:17:00 Kelle Velazco [facility] CBC W/PLT COUNT & AUTO 2022-05-03 09:17:00 Kelle Velazco [facility] DIFFERENTIAL Center CULTURE, 2022-01-13 13:03:54 [facility] of URINE/SENSITIVITY ON ALL Medicin e CYTOLOGY, URINE 2022-01-13 13:03:54 [facility] of Medicine POCT URINALYSIS DIPSTICK 2022-01-13 00:00:00 Chris Lazaro [facility] POCT URINALYSIS DIPSTICK 2022-01-13 00:00:00 [facility] POCT-GLUCOSE METER 2022-01-05 11:47:00 Andrew Neil [facility] BASIC METABOLIC PANEL 2022-01-05 04:12:00 [facility] [place] CBC W/PLT COUNT & AUTO 2022-01-05 04:12:00 [facility]ENTIAL [facility] [place] CBC W/PLT COUNT & AUTO 2022-01-05 04:12:00 [facility] DIFFERENTIAL Rasendu [place] URINE CULTURE 2022-01-04 20:26:00 Andrew Neil [facility] GRAM STAIN 2022-01-04 20:26:00 Andrew Neil [facility] IR PERCUTANEOUS 2022-01-04 18:44:00 Andrew Neil [facility] NEPHROSTOMY TUBE Center PLACEMENT BASIC METABOLIC PANEL 2022-01-04 04:04:00 [facility] [place] CBC W/PLT COUNT & AUTO 2022-01-04 04:[facility] DIFFERENTIAL Rasendu Center CBC W/PLT COUNT & AUTO 2022-01-04 04:04:00 SalvadorMatthewTete [facility] DIFFERENTIAL Rasendu Center URINALYSIS W/ REFLEX 2022-01-03 23:04:00 [facility] Center COMPREHENSIVE METABOLIC 2022-01-03 22:44:00 Burton, [facility] PANEL Center CBC W/PLT COUNT & AUTO 2022-01-03 22:44:00 [facility] DIFFERENTIAL [place] PT/APTT 2022-01-03 22:44:00 [facility] PROTHROMBIN TIME/INR 2022-01-03 22:44:00 [facility] CBC W/PLT COUNT & AUTO 2022-01-03 22:44:00 [facility] Center MRI BRAIN WO CONTRAST 2021-07-09 19:50:00 [facility] Hernia repair [facility] [place] [facility] Plan of Care Planned Activity Planned Date [...] (3 - Td or Tdap)] Future Scheduled 2023-05-[address] [facility] Test 00:00:00 (Season Ended) [code Medical Center = INFLUENZA VACCINE (Season Ended)] Future Scheduled 2022-12-16 SHINGLES VACCINES (1 [facility] Test 15:38:18 of 2) [code = Hospital SHINGLES VACCINES (1 of 2)] Future Scheduled 2022-12-16 65+ PNEUMOCOCC[address] [facility] Test 15:38:18 VACCINE (2 - PCV) Hospital [code = 65+ PNEUMOCOCCAL VACCINE (2 - PCV)] Future Scheduled 2022-12-16 COVID-19 VACCINE (4 Meth [facility] Test 15:38:18 - Booster for Hospital Moderna series) [code = COVID-19 VACCINE (4 - Booster for Moderna series)] Future Scheduled 2022-12-16 INFLUENZA VACCINE [facility] Test 15:38:18 [code = INFLUENZA Hospital VACCINE] Future Scheduled [...] Hospital VACCINE] Future Scheduled 2022-01-13 CULTURE, Ordered: Dominick Юлия ege of Test 13:03:54 URINE/SENSITIVITY ON 01/13/2022 Medicin e ALL [code = 08855-9] Future Scheduled 2022-01-13 CULTURE, Ordered: [facility] [facility] ege of Test 13:03:54 URINE/SENSITIVITY ON 01/13/2022 Medicin e ALL [code = 72375-2] Future Scheduled 2022-01-13 CYTOLOGY, URINE Ordered: [facility] of Test 13:03:54 [code = 07033] 01/13/2022 Medicine Future Scheduled 2022-01-13 CYTOLOGY, URINE Ordered: [facility] of Test 13:03:54 [code = 04637] 01/13/2022 Medicine Future Scheduled 2022-01-13 FALL SCREEN [code = [facility] of Test 12:47:39 FALL SCREEN] Medicine Future Scheduled 2022-01-13 TETANUS SHOT (ADULT) [facility] of Test 12:47:39 [code = TETANUS SHOT Medicin e (ADULT)] Future Scheduled 2022-01-13 BMI FOLLOW UP PLAN [facility] of Test 12:47:39 [code = BMI FOLLOW Medicine UP PLAN] Future Scheduled 2022-01-13 ZOSTER VACCINE (1 of [facility] of Test 12:47:39 2) [code = ZOSTER Medicine VACCINE (1 of 2)] Future Scheduled 2022-01-13 MEDICARE AWV [facility] Юлия ege of Test 12:47:39 (Initial) [code = Medicine MEDICARE AWV (Initial)] Future Scheduled 2022-01-13 Pneumococcal 65+ (1 [facility] of Test 12:47:39 of 1 - PPSV23) [code Medicin e = Pneumococcal 65+ (1 of 1 - PPSV23)] Future Scheduled 2022-01-13 FLU VACCINE > 6 [facility] of Test 12:47:39 MONTHS [code = FLU Medicine VACCINE > 6 MONTHS] Future Scheduled 2021-09-19 COVID-19 VACCINE (4 [facility] [...] Test 00:00:00 [code = FALLS RISK Medical enter SCREENING] Future Scheduled 2021-09-[address] [facility] Test 00:00:00 (12+) [code = Medical Center DEPRESSION SCREENING (12+)] Future Scheduled 2021-09-12 FALLS RISK SCREENING [facility] Test 00:00:00 [code = FALLS RISK Medical C enter SCREENING] Future Scheduled 2021-07-15 COVID-19 VACCINE ([address] [facility] Test 00:00:00 - Booster for Medical Center Moderna series) [code = COVID-19 VACCINE (4 - Booster for Moderna series)] Future Scheduled 2020-10-05 PNEUMOCOCCAL 65+ YRS [facility] [...] Type Clinicians Facility Department ID 2022-11-04 Outpatient Antoine, STLMLC STLMLC [id number] Common 16:23:03 Danny [id number] [facility] 2022-09-01 Outpatient Antoine, STLMLC STLMLC [id number] Common 13:01:02 Danny [id number] [facility] 2022-01-27 Outpatient AMBIKA LAZARO, SLE Surgery [id number] SLE 08:47:36 [facility] 2021-07-12 Emergency [facility] [id number] Univers 15:28:[address] [facility] 2022-10-14 2022-10-14 (TEL) STLMLC STLMLC [id number] Co mmon 00:00:00 00:00:00 [facility] 2022-10-13 2022-10-13 OFFICE STLMLC STLMLC [id number] Co mmon 00:00:00 00:00:00 VISIT Spirit ESTAB PT - [facility] LEVEL 2 [facility] 2022-10-06 2022-10-06 (PROC) STLMLC STLMLC [id number] Co mmon 00:00:00 00:00:00 Procedure Spir it [facility] 2022-09-29 2022-09-29 (PROC) STLMLC STLMLC [id number] Co mmon 00:00:00 00:00:00 Procedure Spir it [facility] 2022-09-19 2022-09-19 (TEL) STLMLC STLMLC [id number] Co mmon 00:00:00 00:00:00 [facility] 2022-09-15 2022-09-15 (PROC) STLMLC STLMLC [id number] Co mmon 00:00:00 00:00:00 Procedure Spir it [facility] 2022-09-08 2022-09-08 (PROC) STLMLC STLMLC [id number] Co mmon 00:00:00 00:00:00 Procedure Spir it [facility] 2022-09-01 2022-09-01 OFFICE STLMLC STLMLC [id number] Co mmon 00:00:00 00:00:00 VISIT EST Spir it PT LEVEL 3 - [facility] 2022-07-12 2022-07-12 Refill Ondo, 1.2.840.1 [id number] Methodi 00:00:00 00:00:[address] [facility] 3.430.2.7 Hospit a .3.728815 l .8 2022-07-12 2022-07-12 Refill Ondo, 1.2.840.1 [id number] 8922 Methodi 00:00:00 00:00:[address] 3.430.2.7 Hospit a .3.199305 l .8 2022-06-01 2022-06-01 Outpatient Brandon GUSMAN [facility] [id number] Univers 18:40:00 19:08:11 [facility] 2022-06-01 2022-06-01 Urgent Fuad Lam [facility] 1.2.840.114 [id number] Univers 18:40:00 19:08:11 Jose Angel [facility] 350.1.13.10 [facility] 4.2.7.2.686 Too as SONIDO?BLEA [phone] [address] MEDICAL OFFICE BUILDING 2022-05-03 2022-05-03 Outpatient WILLARD SELLERS [facility] [id number] [facility] 14:56:33 23:59:00 SIGEL 2022-05-03 2022-05-03 [facility] [id number] 08:00:00 23:59:00 [facility]counter [facility] 2022-05-03 2022-05-03 [facility] [id number] 08:00:00 23:59:00 [facility]counter [facility] 2022-05-03 2022-05-03 [facility] [id number] 06:36:00 10:35:00 Encounter [facility] 2022-05-03 2022-05-03 Outpatient WILLARD SELLERS Surgery [id number] SLE 06:36:00 10:35:00 SIGEL 2022-05-03 2022-05-03 [facility] [id number] 06:36:00 10:35:00 Encounter [facility] 2022-05-03 2022-05-03 [facility] [id number] 07:30:00 08:00:00 [facility] 2022-05-03 2022-05-03 Surgery Jose Francisco, [facility] [id number] 07:30:00 08:00:00 [facility] 2022-05-03 2022-05-03 Orders Aleksandra [facility] [id number] 00:00:00 00:00:00 Only [facility] 2022-05-03 2022-05-[address] [facility] [id number] [facility] 00:[facility] 00:00:00 [facility] 2022-05-03 2022-05-03 Orders Aleksandra [facility] [id number] 00:00:00 00:00:00 Only [facility] 2022-05-03 2022-05-[address] [facility] [id number] [facility] 00:[facility] 00:00:00 [facility] 2022-04-21 2022-04-21 Outside Jason [facility] [id number] 00:00:00 00:00:00 Orders [facility] 2022-04-21 2022-04-21 Outside Jason [facility] [id number] 00:00:00 00:00:00 Orders [facility] 2022-01-13 2022-01-13 Office HALIMA LAZARO 1.2.840.114 [id number] [facility] 11:15:18 11:15:18 Visit CHRIS AMBULATOR 350.1.13.21 College Y 0.2.7.2.686 [phone] [facility] jasper 300 e 2022-01-12 2022-01-12 Ambulatory nullFlavo [facility] [id number] Memoria 20:30:00 20:30:00 Pre-Reg r Urology 01 l Yazan Dorsey nn [facility] 2022-01-12 2022-01-12 [place] [id number] Memoria 20:30:00 20:30:00 Pre-Reg r Urology 01 l Yazan Dorsey nn [facility] 2022-01-12 2022-01-12 [facility] [id number] Memoria 15:30:00 15:30:00 01 brant Nolan 2022-01-12 2022-01-12 Outpatient Justin, [facility] [id number] 15:30:00 15:30:00 Jazzy Brant 01 2022-01-03 2022-01-05 [facility] [id number] 20:21:00 15:56:00 Encounter Fidel Gonzalez [facility] 2022-01-03 2022-01-05 Inpatient ER [facility] Urology [id number] SLE 20:21:00 15:56:00 2022-01-03 2022-01-05 [facility] [id number] 20:21:00 15:56:00 Encounter Fidel Gonzalez [facility] 2022-01-03 2022-01-[address] [facility] [id number] [facility] 00:[facility]00 00:00:00 [facility] 2022-01-03 2022-01-[address] [facility] [id number] [facility] 00:[facility]:00 00:00:00 [facility] 2021-12-21 2021-12-22 Outpatient nullFlavo [facility] 41 [id number] Memoria 18:35:00 04:59:59 r Specialty 00 l [facility] 2021-12-21 2021-12-22 Outpatient nullFlavo [facility] 41 [id number] Memoria 18:35:00 04:59:59 r Specialty 00 l [facility] 2021-12-21 2021-12-21 Outpatient Justin, [facility] [id number] 13:35:00 23:59:59 Jazzy Brant 00 2021-12-21 2021-12-21 Outpatient MHIE MHIE [id number] Memoria 13:35:00 13:35:00 00 brant Yoo 2021-12-21 2021-12-21 Telephone Luís [facility] 1.2.840.114 [id number] [facility] 00:00:00 00:00:00 [facility] 350.1.13.10 ity of [facility] 4.2.7.2.686 Too as SONIDO?BLEA [phone] Pa j luis SREY 092 [facility] 2021-12-12 2021-12-[address] [facility] [id number] Memoria 21:21:00 01:15:00 n [facility] 92 l [facility] 2021-12-12 2021-12-13 [facility] [id number] Memoria 21:21:00 01:15:00 n r Fredo 92 l [facility] 2021-12-12 2021-12-12 Outpatient Ajibade, MHPL PL [id number] 16:21:00 20:15:00 Zach 92 [place] 2021-12-02 2021-12-02 Outpatient Brandon MEANS [facility] [id number] [facility] 13:00:00 13:45:[address] [facility] 2021-12-02 2021-12-02 Ancillary Saul Weinberg [facility] 1.2.840. 114 [id number] [facility] 13:00:00 13:45:36 Visit Breanna Means 350.1.13.10 ity of [facility] [place] [phone] Pa j luis [facility] 179 [facility] 2021-11-27 2021-11-27 Ancillary Lorri Weinberg [facility] 1.2.840 .114 [id number] [facility] 13:00:00 13:40:39 Visit Breanna Means 350.1.13.10 ity of [facility] 4.[place].7.2.[place] [phone] Pa dical NAL 179 [facility] 2021-11-25 2021-11-25 Ancillary Lorri Weinberg [facility] 1.2.840 .114 [id number] Univers 08:00:00 08:45:00 Visit Breanna Means 350.1.13.10 ity of [place] [phone] Pa dical NAL 179 [facility] 2021-11-19 2021-11-19 Ancillary AlannahElena Mkye [facility] 1.2.84 0.114 [id number] Univers 13:00:00 13:52:36 Visit Breanna Means 350.1.13.10 ity of [facility] 4.[place].7.2.[place] [phone] Pa dical NAL 179 [facility] 2021-11-09 2021-11-09 Orders Doctor SAM 1.2.840.114 [id number] Univers 00:00:00 00:00:00 Only Unassigned, ROSI 350.1.13.10 ity of [facility] 4.2.7.2.686 Too as [phone] [address] 2021-09-13 2021-09-13 Outpatient R [facility] [id number] Univers 14:45:00 14:45:00 ity of [facility] 2021-07-24 2021-07-24 Manuela Staley [facility] 1.2.840.114 [id number] Univers 00:00:00 00:00:00 Jason SEPULVEDA 350.1.13.10 ity of [place] [phone] Pa dical NAL 092 [facility] 2021-07-09 2021-07-09 Hospital Reba 1.2.840.1 [id number] Methodi 13:19:33 23:59:00 Encounter Dewayne 92824.1.1 444 [facility] 3.430.2.7 Hospit a .3.202267 l .8 2021-07-09 2021-07-09 Travel 1.2.840.1 1.2.210.052 [id number] Methodi 00:00:00 00:00:[address] 3.430.2.7 0.2.7.3.698 Ho spita .3.673038 084.8 l .8 2021-07-07 2021-07-07 Office Reba, 1.2.840.1 [id number] Methodi 13:15:00 16:08:39 Visit Dewayne 09062.1.[address] [facility] 3.430.2.7 Hospit a .3.825868 l .8 2021-07-07 2021-07-07 Travel 1.2.840.1 1.2.317.178 [id number] Methodi 00:00:00 00:00:[address] 3.430.2.7 0.2.7.3.698 Ho spita .3.280986 084.8 l .8 2021-06-15 2021-06-15 Telephone JAVI Staley 1.2.840.114 [id number] [facility] 00:00:00 00:00:00 [facility] 350.1.13.10 [facility] 4.2.7.2.686 Too as Sonido?Blea [phone] [address] Office [facility] 2021-06-12 2021-06-12 Travel 1.2.840.1 1.2.500.275 [id number] Methodi 00:00:00 00:00:[address] 3.430.2.7 0.2.7.3.698 Ho spita .3.860332 084.8 l .8 2021-06-11 2021-06-11 Telephone Reba, 1.2.840.1 [id number] Methodi 00:00:00 00:00:[address] [facility] 3.430.2.7 Hospit a .3.253173 l .8 2021-05-20 2021-05-20 Imm/Inj Nurse, Adc Pob Immunization [facility] 1.2.840.114 [id number] Univers 13:10:10 13:10:33 Visit Anuel Galarza 350.1.13 .10 it[place] of [place] [phone] Pa dical nal 421 [facility] 2021-05-20 2021-05-20 Outpatient Brandon GALARZA [facility] [id number] Univers 13:10:00 13:10:[address] [facility] 2021-01-29 2021-01-29 Outpatient R CLARY [facility] [id number] Univers 14:00:00 14:00:[address] [facility] 2021-01-23 2021-01-23 Orders Doctor VARGAS 1.2.840.114 [id number] Univers 00:00:00 00:00:00 Only Unassigned, ROSI 350.1.13.10 ity of [facility] 4.2.7.2.686 Too as [phone] [address] 2021-01-21 2021-01-21 Ancillary Lorri Weinberg [facility] 1.2.840 .114 [id number] Univers 14:01:28 14:41:28 Visit Breanna Means 350.1.13.10 it[place] of [place] [phone] Pa dical nal 179 [facility] 2021-01-21 2021-01-21 Telephone Luís [facility] 1.2.840.114 [id number] Univers 00:00:00 00:00:00 Jason Sepulveda 350.1.13.10 it[place] of [place] [phone] Pa dical nal 092 [facility] 2021-01-19 2021-01-19 Ancillary Varsha Bey [facility] 1.2.840. 114 [id number] Univers 14:00:13 14:41:16 Visit Breanna Means 350.1.13.10 it[place] of [place].2.[place] [phone] Pa dical nal 179 [facility] 2021-01-12 2021-01-12 Ancillary Samantha [place]ley [place] 1.2.840. 114 [id number] Univers 11:08:23 11:48:23 Visit Breanna Means 350.1.13.10 it[place] of [place] 4[place].7.2.[place] [phone] Pa dical nal 179 [facility] 2021-01-06 2021-01-06 Emergency Rodriguez, [facility] 1.2.666.958 [id number] Univers 08:31:00 13:37:00 Ricco Sepulveda 350.1.13.10 i [place] [phone] [facility] [address] [place] 2021-01-06 2021-01-06 Orders Doctor SAM 1.2.840.114 [id number] [facility] 00:00:00 00:00:00 Only Unassigned, ROSI 350.1.13.10 ity of [facility] 4.2.7.2.686 Too as [phone] [facility] 00[address] [place] 2021-01-01 2021-01-01 Ancillary Varsha Bey [facility] 1.2.840. 114 [id number] Univers 15:17:58 16:03:58 Visit Breanna Means 350.1.13.10 it[place] of [place].2.[place] [phone] Pa dical nal 179 [facility] 2020-12-30 2020-12-30 Ancillary Varsha Bey [facility] 1.2.840. 114 [id number] Univers 15:11:48 16:47:07 Visit Breanna Means 350.1.13.10 it[place] of [place] 4[place]2.7.2.[place] [phone] Pa dical nal 179 [facility] 2020-12-25 2020-12-26 Ancillary Varsha Bey [facility] 1.2.840. 114 [id number] Univers 15:13:25 08:42:39 Visit Breanna Means 350.1.13.10 [place] of [place] 4[place].2.[place] [phone] Pa dical nal 179 [facility] 2020-12-23 2020-12-23 Ancillary Jagdeep Shirley Elizabeth [facility] 1 .2.840.114 [id number] Univers 11:09:48 12:04:08 Visit Breanna Means 350.1.13.10 [place] of [place] 4[place].7.2.[place] [phone] Pa dical nal 179 [facility] 2020-12-18 2020-12-18 Ancillary Jagdeep Shirley Elizabeth [facility] 1 .2.840.114 [id number] [facility] 09:53:00 10:42:16 Visit Breanna Means 350.1.13.10 [place].2.[place] [phone] Pa dical nal 179 [facility] 2020-12-18 2020-12-18 Outpatient R CLARY [facility] [id number] Univers 10:20:00 10:20:[address] [facility] 2020-12-18 2020-12-18 Orders Doctor VARGAS 1.2.840.114 [id number] Univers 00:00:00 00:00:00 Only Unassigned, ROSI 350.1.13.10 ity of [facility] 4.2.7.2.686 Too as [phone] [address] 2020-12-10 2020-12-10 Telephone Rafael [facility] 1.2.934.118 [id number] Univers 00:00:00 00:00:00 Brendan Sepulveda 350.1.13.10 it[place] of [place].2.[place] [phone] Pa dical nal 059 [facility] 2020-12-08 2020-12-08 Orders Doctor VARGAS 1.2.840.114 [id number] Univers 00:00:00 00:00:00 Only Unassigned, ROSI 350.1.13.10 [facility] 4.2.7.2.686 Too as [phone] [address] 2020-12-04 2020-12-04 Telephone Luís [facility] 1.2.840.114 [id number] Univers 00:00:00 00:00:00 Jason Sepulveda 350.1.13.10 ity of [place] [phone] Pa dicnh nal [address] [place] [address] 2020-11-24 2020-11-24 [facility] 1.2.840.114 [id number] Univers 15:26:22 16:30:45 Visit Jason Sepulveda 350.1.13.10 [place].2.[place] [phone] Pa dic[address] 2020-11-24 2020-11-24 Outpatient JASON PARIS [facility] [id number] Univers 15:40:00 15:40:[address] [facility] 2020-11-20 2020-11-20 Outpatient Brandon POONEJASON [facility] [id number] Univers 13:00:00 13:00:00 LUÍSJASON Castañeda alfredoashtyn [facility] 2020-11-04 2020-11-04 [facility] 1.2.840.114 [id number] Univers 15:59:56 17:20:37 Visit Jason Sepulveda 350.1.13.10 it[place] of [place].2.[place] [phone] Pa dic[address] 2020-11-04 2020-11-04 Outpatient JASON PARIS [facility] [id number] Univers 16:00:00 16:00:[address] [facility] 2020-10-15 2020-10-15 Outpatient Brandon JENKINS [facility] [id number] Univers 11:10:00 11:10:00 ASTRID [facility] 2020-10-10 2020-10-10 Office Luís [facility] 1.2.840.114 [id number] Univers 10:45:46 14:13:12 Visit Jason Sepulveda 350.1.13.10 it[address] [facility] [place].2.7.2.[place] [phone] Pa dical nal 092 [facility] 2020-10-10 2020-10-10 Outpatient Brandon STALEYJASON [facility] [id number] Univers 11:00:00 11:00:00 JASON STALEY [facility] 2020-10-08 2020-10-08 [facility] 1.2.618.979 [id number] Univers 09:48:22 23:59:00 Encounter Jason VYAS 350.1.13.10 ity of [place] AT [phone] Pa dicceci EASON [address] [place] [address] 2020-10-08 2020-10-08 Outpatient Brandon STALEYJASON [facility] [id number] Univers 10:00:00 10:00:00 JASON STALEY [facility] 2020-10-08 2020-10-08 [facility] 1.2.661.431 [id number] Univers 09:47:36 09:47:36 Encounter Jason VYAS 350.1.13.10 ity [place].2.[place] AT [phone] Pa dical JENARO [address] [place] [address] 2020-10-08 2020-10-08 [facility] 1.2.518.435 [id number] Univers 09:46:50 09:46:50 Encounter Jason Gene SPECIALTY 350.1.13.10 ity of [place].2.[place] C[place] AT [phone] Pa dical JENARO [address] [place] [address] 2020-09-30 2020-09-30 [facility] 1.2.840.114 [id number] Univers 00:00:00 00:00:00 Jason Sepulveda 350.1.13.10 [place] of [place].2.[place] [phone] Pa dicnh nal 092 [facility] 2020-09-19 2020-09-19 Office Luís [facility] 1.2.840.114 [id number] Univers 14:31:34 15:40:16 Visit Jason Sepulveda 350.1.13.10 [place] of [place].2.[place] [phone] [facility] nal 092 [facility] 2020-09-19 2020-09-19 Outpatient R JASON STALEY [facility] [id number] Univers 14:40:00 14:40:00 JASON STALEY [facility] 2020-09-17 2020-09-17 Outpatient R GREGORY [facility] [id number] Univers 10:50:00 10:50:00 ASTRID [facility] 2020-09-17 2020-09-17 [facility] 1.2.840.114 [id number] Univers 00:00:00 00:00:00 Brendan Sepulveda 350.1.13.10 [place].2.[place] [phone] [facility] nal 059 [facility] 2020-09-15 2020-09-15 Orders Doctor VARGAS 1.2.840.114 [id number] Univers 00:00:00 00:00:00 Only Unassigned, ROSI 350.1.13.10 ity of [facility] 4.2.7.2.686 Too as [phone] [address] 2020-09-10 2020-09-10 Telephone Luís [facility] 1.2.840.114 [id number] Univers 00:00:00 00:00:00 Jason Jeffry Sepulveda 350.1.13.10 [place] [phone] [facility] 092 [facility] 2020-09-09 2020-09-09 Manager Nc 2, Adc Lab [facility] 1.2.840.114 [id number] Univers 10:13:23 10:28:23 Visit Jason Staley Kendra 350.1.13 .10 it[place] of [place] 4[place].2.[place] [phone] Pa dical nal 353 [facility] 2020-09-09 2020-09-09 Outpatient R JASON STALEY [facility] [id number] Univers 10:15:00 10:15:00 [facility] 2020-09-08 2020-09-08 Office Luís [facility] 1..840.114 [id number] Univers 11:02:00 12:00:27 Visit Jason Teran Kendra 350.1.13.10 [place] of [place].2.[place] [phone] Pa dical nal 092 [facility] 2020-09-08 2020-09-08 Outpatient R LUÍS, JASON [facility] [id number] Univers 11:00:00 11:00:00 LUÍSJASON Castañeda [facility] 2020-08-28 2020-08-28 Refill Rafael [facility] 1..840.114 [id number] Univers 00:00:00 00:00:00 Brendan Sepulveda 350.1.13.10 [place] of [place].2.[place] [phone] Pa dical nal 059 [facility] 2020-08-20 2020-08-20 Ancillary Saul Weinberg [facility] ..840. 114 [id number] Univers 14:56:11 15:36:11 Visit Breanna Means 350.1.13.10 [place] [phone] Pa dical nal 179 [facility] 2020-08-20 2020-08-20 Outpatient R CLARY [facility] [id number] Univers 15:00:00 15:00:[address] [facility] 2020-08-06 2020-08-06 Telephone Luís [facility] ..840.114 [id number] Univers 00:00:00 00:00:00 Jason Sepulveda [id number] [place] [phone] Pa dical nal 092 [facility] 2020-08-06 2020-08-06 Orders Doctor SAM 1.2.840.114 [id number] Univers 00:00:00 00:00:00 Only Unassigned, ROSI 350.1.13.10 [facility]y [facility] [place] [facility] 4.2.7.2.686 Too as [phone] [address] 2020-08-05 2020-08-05 Ancillary Saul Weinberg [facility] 1.2.840. 114 [id number] Univers 16:31:08 17:11:08 Visit Breanna Means 350.1.13.10 [place] [phone] Pa dicnh nal 179 [facility] 2020-07-29 2020-07-29 Ancillary Saul Weinberg [facility] 1.2.840. 114 [id number] Univers 15:31:18 16:11:18 Visit Breanna Means 350.1.13.10 [place] [phone] [facility] 179 [facility] 2020-07-28 2020-07-28 Outpatient Brandon HALL, [facility] [id number] [facility] 11:20:00 11:20:00 BRENDAN ewing o f [facility] 2020-07-23 2020-07-23 Orders Doctor SAM 1.2.840.114 [id number] Univers 00:00:00 00:00:00 Only Unassigned, ROSI 350.1.13.10 [facility] [place] [facility] 4.2.7.2.686 Too as [phone] [address] 2020-07-22 2020-07-22 Ancillary Saul Weinberg [facility] 1.2.840. 114 [id number] Univers 14:59:34 15:39:34 Visit Breanna Means 350.1.13.10 [place] [phone] Me dical nal 179 [facility] 2020-07-15 2020-07-15 Ancillary Lorri Weinberg [facility] 1.2.840 .114 [id number] Univers 14:30:20 15:10:20 Visit Breanna Means 350.1.13.10 [place] Professio [phone] Pa dical nal 179 [facility] 2020-07-15 2020-07-15 [facility] [id number] Univers 14:40:00 14:40:[address] [facility] 2020-07-11 2020-07-11 Manuela Hall [facility] 1.2.840.114 [id number] Univers 00:00:00 00:00:00 Brendan Sepulveda 350.1.13.10 [place] [phone] Pa dical nal 059 [facility] 2020-07-10 2020-07-10 Ancillary Shirley Banks [facility] 1 .2.840.114 [id number] Univers 13:40:27 14:20:27 Visit Breanna Means 350.1.13.10 [place] [phone] Pa dical nal 179 [facility] 2020-07-09 2020-07-09 Ancillary Samantha Brantley [facility] 1.2.840. 114 [id number] Univers 10:32:38 11:12:38 Visit Breanna Means 350.1.13.10 [place] [phone] Pa dical nal 179 [facility] 2020-07-09 2020-07-09 Outpatient R [facility] [id number] Univers 10:40:00 10:40:00 ity of [facility] 2020-07-04 2020-07-04 Ancillary Shirley Banks [facility] 1 .2.840.114 [id number] Univers 11:16:46 11:56:46 Visit Breanna Means 350.1.13.10 [place] [phone] Pa dical nal 179 [facility] 2020-06-26 2020-06-26 Ancillary Lorri Weinberg [facility] 1.2.840 .114 [id number] Univers 12:03:21 12:43:21 Visit Breanna Means 350.1.13.10 [place] [phone] Pa dical nal 179 [facility] 2020-06-26 2020-06-26 Refheather Hall [facility] 1.2.840.114 [id number] Univers 00:00:00 00:00:00 Brendan Sepulveda 350.1.13.10 [place] [phone] Pa dical nal 059 [facility] 2020-06-24 2020-06-24 Ancillary Varsha Bey [facility] 1.2.840. 114 [id number] Univers 11:37:06 12:17:06 Visit Breanna Means 350.1.13.10 [place] [phone] Pa dical nal 179 [facility] 2020-06-19 2020-06-19 Ancillary Jagdeep Shirley Elizabeth [facility] 1 .2.840.114 [id number] Univers 11:29:43 14:07:55 Visit Breanna Means 350.1.13.10 [place] [phone] Pa dical nal 179 [facility] 2020-06-19 2020-06-19 Outpatient R [facility] [id number] Univers 11:20:00 11:20:00 ity of [facility] 2020-06-17 2020-06-17 Ancillary Varsha Bey [facility] 1.2.840. 114 [id number] Univers 11:24:28 12:04:28 Visit Breanna Means 350.1.13.10 [place] [phone] Pa dical nal 179 [facility] 2020-06-13 2020-06-13 Orders Doctor SAM 1.2.840.114 [id number] Univers 00:00:00 00:00:00 Only Unassigned, ROSI 350.1.13.10 ity of [place] [facility] 4.2.7.2.686 Too as [phone] [facility] [address] [place] 2020-06-11 2020-06-11 Ancillary Jagdeep Shirley Elizabeth [facility] 1 .2.840.114 [id number] Univers 14:07:48 16:06:14 Visit Breanna Means 350.1.13.10 [place] [phone] Pa dicnh nal 179 [facility] 2020-06-11 2020-06-11 [facility] [id number] Univers 14:20:00 14:20:00 BREANNA ity of [facility] 2020-05-05 2020-05-05 Telephone [facility] 1.2.253.246 [id number] Univers 00:00:00 00:00:00 Brendan Sepulveda 350.1.13.10 [place] [phone] Pa dicnh nal 059 [facility] 2020-05-03 2020-05-03 Nurse SAM Figueredo 1.2.840.114 [id number] Univers 00:00:00 00:00:00 Triage Amie Stringer ROSI 350.1.13.10 it y of HOSPITAL 4.2.7.2.686 Too as [phone] [facility] [address] [place] 2020-04-10 2020-04-10 Ancillary Jagdeep Shirley Elizabeth [facility] 1 .2.840.114 [id number] Univers 15:27:41 16:07:41 Visit Breanna Means 350.1.13.10 [place] [phone] Pa dical nal 179 [facility] 2020-04-08 2020-04-08 Ancillary Lorri Weinberg [facility] 1.2.840 .114 [id number] Univers 15:29:47 16:09:47 Visit MeansBreanna toledo 350.1.13.10 [place] [phone] Pa dical nal 179 [facility] 2020-04-04 2020-04-04 Ancillary Lorri Weinberg [facility] 1.2.840 .114 [id number] Univers 14:18:04 14:58:04 Visit Breanna Means 350.1.13.10 [place] [phone] Pa dical nal 179 [facility] 2020-04-03 2020-04-03 Refheather Hall [facility] 1.2.840.114 [id number] Univers 00:00:00 00:00:00 Brendan Sepulveda 350.1.13.10 [place] [phone] Pa dical nal 059 [facility] 2020-04-02 2020-04-02 Ancillary Lorri Weinberg [facility] 1.2.840 .114 [id number] Univers 14:59:32 15:39:32 Visit Breanna Means 350.1.13.10 [place] [phone] Pa dical nal 179 [facility] 2020-03-26 2020-03-26 Sg Staley [facility] 1.2.840.114 [id number] Univers 00:00:00 00:00:00 Jason Sepulveda 350.1.13.10 [place] [phone] Pa dical nal 092 [facility] 2020-03-20 2020-03-20 Ancillary Saul Weinberg Patrick [facility] 1.2.840. 114 [id number] Univers 15:27:33 16:07:33 Visit Breanna Means 350.1.13.10 [place] [phone] Pa dical nal 179 [facility] 2020-03-13 2020-03-13 Outpatient R [facility] [id number] Univers 15:40:00 15:40:00 ity of [facility] 2020-03-11 2020-03-11 Ancillary Saul Weinberg [facility] 1.2.840. 114 [id number] Univers 15:30:10 16:10:10 Visit Breanna Means 350.1.13.10 [place] [phone] Pa dical nal 179 [facility] 2020-03-06 2020-03-06 Ancillary Lorri Weinberg [facility] 1.2.840 .114 [id number] Univers 15:36:47 16:16:47 Visit Breanna Means 350.1.13.10 [place] [phone] Pa dical nal 179 [facility] 2020-03-03 2020-03-03 Ancillary Saul Weinberg [facility] 1.2.840. 114 [id number] Univers 15:41:05 16:21:05 Visit Breanna Means 350.1.13.10 [place] [phone] Pa dical nal 179 [facility] 2020-02-27 2020-02-28 Ancillary Saul Weinberg [facility] 1.2.840. 114 [id number] Univers 14:57:04 13:44:25 Visit Breanna Means 350.1.13.10 [place] [phone] Pa dical nal 179 [facility] 2020-02-21 2020-02-21 Ancillary Saul Weinberg [facility] 1.2.840. 114 [id number] Univers 14:15:09 14:55:09 Visit Breanna Means 350.1.13.10 [place] [phone] Pa dical nal 179 [facility] 2020-02-18 2020-02-18 Ancillary Saul Weinberg [facility] 1.2.840. 114 [id number] Univers 14:10:56 14:50:56 Visit Breanna Means 350.1.13.10 [place] [phone] Pa dical nal 179 [facility] 2020-02-13 2020-02-13 Ancillary Shirley Banks [facility] 1 .2.840.114 [id number] Univers 13:40:00 14:24:13 Visit Breanna Means 350.1.13.10 [place] [phone] Pa dical nal 179 [facility] 2020-02-11 2020-02-11 Outpatient R CLARY [facility] [id number] Univers 15:20:00 15:20:00 BREANNA ity of [facility] 2020-02-08 2020-02-08 Ancillary Shirley Banks [facility] 1 .2.840.114 [id number] Univers 13:04:37 14:04:37 Visit Breanna Means 350.1.13.10 [place] [phone] Pa dical nal 179 [facility] 2020-02-06 2020-02-06 Ancillary LenardLorri [facility] 1.2.840 .114 [id number] Univers 13:02:54 14:02:54 Visit Breanna Means 350.1.13.10 [place] [phone] Pa dical nal 179 [facility] 2020-02-06 2020-02-06 Telephone Clary [facility] 1.2.840.114 [id number] Univers 00:00:00 00:00:00 Breanna [facility] 350.1.13.10 it y of Surgical 4.2.7.2.686 Too as Specialti [phone] Pa dical es 198 [facility] 2020-02-05 2020-02-05 [facility]phone [facility] 1.2.734.879 [id number] Univers 00:00:00 00:00:00 Brendan Malone 350.1.13.10 [place] [phone] Pa dical nal 059 [facility] 2020-01-31 2020-01-31 Office Clary [facility] 1.2.496.150 [id number] Univers 13:13:50 14:01:29 Visit Breanna Vitale [facility] 350.1.13.10 it y of Surgical 4.2.7.2.686 Too as Specialti [phone] Pa dical es 198 [facility] 2020-01-31 2020-01-31 [facility] 1.2.840.114 [id number] Univers 08:43:00 08:43:00 Encounter Chris Malone 350.1.13.10 it[place] of [place] 4.2.7.2.686 [facility] [phone] [address] 2020-01-31 2020-01-31 [facility] 1.2.840.114 [id number] Univers 08:43:00 08:43:00 Encounter Chris Malone 350.1.13.10 [place] of [place] 4.2.7.2.686 [facility] [phone] [address] 2020-01-31 2020-01-31 Outpatient R [facility] [id number] Univers 08:42:11 08:42:00 CHRIS ity of [facility] 2020-01-31 2020-01-31 [facility] 1.2.840.114 [id number] Univers 08:42:00 08:42:00 Encounter Chris Malone 350.1.13.10 [place] of [place] 4.2.7.2.686 [facility] [phone] [address] 2020-01-31 2020-01-31 [facility] 1.2.840.114 [id number] Univers 08:42:00 08:42:00 Encounter Chris Malone 350.1.13.10 [place] [phone] [facility] [address] [place] 2020-01-31 2020-01-31 Telephone Julisa [facility] 1.2.746.719 [id number] Univers 00:00:00 00:00:00 Sendmayuri McgeeLeatha Sepulveda 350.1.13.10 [place] [phone] Pa dical nal 059 [facility] 2020-01-29 2020-01-29 Ancillary Jagdeep Shirley Elizabeth [facility] 1 .2.840.114 [id number] Univers 13:41:12 14:41:12 Visit Breanna Means 350.1.13.10 [place] [phone] Pa dical nal 179 [facility] 2020-01-29 2020-01-29 Outpatient R CLARY [facility] [id number] Univers 13:00:00 13:00:[address] [facility] 2020-01-21 2020-01-21 Outpatient Brandon HALL [facility] [id number] Univers 11:40:00 11:40:00 BRENDAN ewing o f [facility] 2020-01-21 2020-01-21 [facility]medici [facility] 1.2.840.114 [id number] Univers 08:09:01 08:29:01 ne Visit Brendan Sepulveda 350.1.13.10 [place] [phone] Pa dical nal 059 [facility] 2020-01-18 2020-01-18 Office [facility] 1.2.840.114 [id number] Univers 09:02:21 09:34:47 Visit [facility] 350.1.13.10 it y of Surgical 4.2.7.2.686 Too as Specialti [phone] Pa dical es 198 [facility] 2020-01-18 2020-01-18 [facility] [id number] Univers 09:15:00 09:15:[address] [facility] 2020-01-13 2020-01-13 [facility] 1.2.840.114 [id number] Univers 00:00:00 00:00:00 Brendan Sepulveda 350.1.13.10 [place] [phone] Pa dicnh nal 9 [facility] 2020-01-03 2020-01-03 [facility] 1.2.840.114 [id number] Univers 00:00:00 00:00:00 Brendan Sepulveda 350.1.13.10 [place] [phone] [facility] nal [address] [place] [address] 2019-12-20 2019-12-20 [facility] 1.2.840.114 [id number] Univers 00:00:00 00:00:00 Brendan Malone 350.1.13.10 [place] [phone] [facility] nal 9 [facility] 2019-12-05 2019-12-05 Telephone [facility] 1.2.840.114 [id number] [facility] 00:00:00 00:00:00 Jason Teran Kendra 350.1.13.10 [place] [phone] [facility] 092 [facility] 2019-12-04 2019-12-04 Outpatient R AUBREY [facility] [id number] Univers 11:00:00 11:00:00 CHRIS ity of [facility] 2019-12-04 2019-12-04 Telemedici Aubrey [facility] 1.2.840.114 [id number] Univers 10:20:22 10:40:22 ne Visit Chrispatrick Sepulveda 350.1.13.10 [place] [phone] [place] 404349 [facility] 2019-12-04 2019-12-04 Telephone Aubrey [facility] 1.2.032.794 [id number] Univers 00:00:00 00:00:00 Chrispatrick Sepulveda 350.1.13.10 [place] [phone] Pa dical nal 059 [facility] 2019-11-29 2019-11-29 Outpatient R JASON STALEY [facility] [id number] Univers 12:08:34 23:59:[address] [facility] 2019-11-29 2019-11-29 [facility] 1.2.155.752 [id number] Univers 12:08:00 23:59:00 Encounter Jason Jeffry Kendra 350.1.13.10 [place] [phone] [facility] [address] [place] [address] 2019-10-09 2019-11-27 Office [facility] 1.2.840.114 [id number] Univers 14:55:57 08:46:19 Visit Brendan Sepulveda 350.1.13.10 [place] [phone] Pa dical nal 059 [facility] 2019-11-22 2019-11-22 Refill [facility] 1.2.840.114 [id number] Univers 00:00:00 00:00:00 Christianoyanet Kendra 350.1.13.10 [place] [phone] Pa dical nal 059 [facility] 2019-11-19 2019-11-19 Ancillary Shirley Banks [facility] 1 .2.840.114 [id number] Univers 14:02:31 14:42:31 Visit Breanna Means 350.1.13.10 [place].2.[place] [phone] Pa dical nal 179 [facility] 2019-11-15 2019-11-15 Outpatient [facility] [id number] Univers 11:20:00 11:20:00 BREANNA ewing of [facility] 2019-11-08 2019-11-08 Ancillary Shirley Banks [facility] 1 .2.840.114 [id number] Univers 11:11:28 11:47:28 Visit Breanna Means 350.1.13.10 [place].2.[place] [phone] Pa dical nal 179 [facility] 2019-10-19 2019-11-07 Ancillary Lorri Weinberg [facility] 1.2.840 .114 [id number] Univers 10:14:18 08:52:42 Visit Breanna Means 350.1.13.10 [place].2.[place] [phone] Pa dical nal 179 [facility] 2019-11-06 2019-11-06 Ancillary Shirley Banks [facility] 1 .2.840.114 [id number] Univers 10:33:10 11:13:10 Visit Breanna Means 350.1.13.10 [place].2.[place] [phone] Pa dical nal 179 [facility] 2019-11-06 2019-11-06 Outpatient Brandon MEANS [facility] [id number] Univers 10:40:00 10:40:00 BREANNA ity of [facility] 2019-11-05 2019-11-05 Refheather Hall [facility] 1.2.840.114 [id number] Univers 00:00:00 00:00:00 Brendan Sepulveda 350.1.13.10 [place] [phone] Pa dical nal 059 [facility] 2019-11-05 2019-11-05 Refheather Hall [facility] 1.2.840.114 [id number] Univers 00:00:00 00:00:00 Brendan Sepulveda 350.1.13.10 [place] [phone] Pa dical nal 059 [facility] 2019-11-01 2019-11-01 Ancillary Shirley Banks [facility] 1 .2.840.114 [id number] Univers 11:06:32 11:46:32 Visit Breanna Means 350.1.13.10 [place].2.[place] [phone] Pa dical nal 179 [facility] 2019-10-29 2019-10-29 Ancillary Shirley Banks [facility] 1 .2.840.114 [id number] Univers 11:11:05 11:51:05 Visit Breanna Means 350.1.13.10 [place]2.7.2.[place] [phone] Pa dical nal 179 [facility] 2019-10-26 2019-10-26 Ancillary Lorri Weinberg [facility] 1.2.840 .114 [id number] [facility] 10:35:15 11:26:09 Visit Breanna Means 350.1.13.10 [place].2.[place] [phone] Pa dical nal 179 [facility] 2019-10-25 2019-10-25 Case DianaSAM 1.2.840.114 [id number] Univers 00:00:00 00:00:00 Management Jelly ARANDA 350.1.13.10 ity of [facility] 4.2.7.2.686 Too as [phone] [address] 2019-10-25 2019-10-25 Sg Staley [facility] 1.2.840.114 [id number] Univers 00:00:00 00:00:00 Jason Sepulveda 350.1.13.10 [place].2.[place] [phone] Pa dical nal 092 [facility] 2019-10-24 2019-10-24 Ancillary Lorri Weinberg [facility] 1.2.840 .114 [id number] Univers 11:14:15 11:54:15 Visit Breanna Means 350.1.13.10 [place].2.[place] [phone] Pa dical nal 179 [facility] 2019-10-24 2019-10-24 Telephone Rafael, [facility] 1.2.474.126 [id number] Univers 00:00:00 00:00:00 Brendan Sepulveda 350.1.13.10 [place] [phone] Pa dical nal 059 [facility] 2019-10-23 2019-10-23 Ancillary Lorri Weinberg [facility] 1.2.840 .114 [id number] Univers 15:30:50 16:10:50 Visit Breanna Means 350.1.13.10 [place]2.[place].2.[place] [phone] Pa dical nal 179 [facility] 2019-10-23 2019-10-23 Office Luís [facility] 1.2.840.114 [id number] Univers 13:32:50 14:33:50 Visit Jason Sepulveda 350.1.13.10 [place].2.[place] [phone] Pa dical nal 092 [facility] 2019-09-17 2019-10-22 Ancillary Shirley Banks [facility] 1 .2.840.114 [id number] Univers 09:01:46 09:42:22 Visit Breanna Means 350.1.13.10 [place].2.[place] [phone] Pa dical nal 179 [facility] 2019-10-19 2019-10-19 Orders Doctor VARGAS 1.2.840.114 [id number] Univers 00:00:00 00:00:00 Only Unassigned, ROSI 350.1.13.10 ity of [place] [facility] 4.2.7.2.686 Too as [phone] [facility] emmanuel [address] [place] 2019-10-18 2019-10-18 Office Julisa [facility] 1.2.840.114 [id number] Univers 13:50:43 13:50:58 Visit Gene Sepulveda 350.1.13.10 [place].2.[place] [phone] Pa dical nal 059 [facility] 2019-10-18 2019-10-18 Outpatient R JULISA [facility] [id number] Univers 10:30:00 13:50:58 SENDIL ity of [facility] 2019-10-18 2019-10-18 Telephone Rafael [facility] 1.2.492.403 [id number] Univers 00:00:00 00:00:00 Brendan Sepulveda 350.1.13.10 [place].2.[place] [phone] Pa dical nal 059 [facility] 2019-10-18 2019-10-18 Orders Doctor SAM 1.2.840.114 [id number] Univers 00:00:00 00:00:00 Only Unassigned, ROSI 350.1.13.10 ity of [place] [facility] 4.2.7.2.686 Too as [phone] [facility] [address] [place] 2019-10-15 2019-10-15 Transition Aki Levy 1.2.840.114 [id number] Univers 00:00:00 00:00:00 of Care Martha Phillipsy 350.1.13.10 it [place] of [place].2.[place] [phone] [facility] [address] [place] 2019-10-12 2019-10-12 Outpatient R CLARY [facility] [id number] Univers 11:20:00 11:20:[address] [facility] 2019-10-09 2019-10-09 Outpatient R RAFAEL [facility] [id number] Univers 15:00:00 16:27:15 BRENDAN ewing o f [facility] 2019-10-09 2019-10-09 Ancillary Lorri Weinberg [facility] 1.2.840 .114 [id number] Univers 10:28:34 11:37:49 Visit Breanna Means 350.1.13.10 [place] [phone] Pa dical nal 179 [facility] 2019-10-08 2019-10-08 Transition Aki Lowe 1.2.840.114 [id number] Univers 00:00:00 00:00:00 of Care Yenifer Short 350.1.13.10 it [place].2.[place] [phone] [facility] [address] 2019-10-04 2019-10-05 Emergency Yuliana Harley [facility] 1.2.840.1 14 [id number] Univers 16:52:17 16:50:00 Efe Pugh 350.1.13.10 [place] [phone] [facility] [address] 2019-10-03 2019-10-03 Ancillary Lorri Weinberg [facility] 1.2.840 .114 [id number] Univers 15:03:32 15:43:32 Visit Breanna Means 350.1.13.10 [place]2.[place].2.[place] [phone] Pa dical nal 179 [facility] 2019-09-28 2019-09-28 Ancillary Shirley Banks [place] 1 .2.840.114 [id number] Univers 10:51:31 11:58:26 Visit Breanna Means 350.1.13.10 [place]2.[place].2.[place] [phone] Pa dical nal 179 [facility] 2019-09-27 2019-09-27 Ancillary Lorri Weinberg [facility] 1.2.840 .114 [id number] Univers 13:04:43 13:49:43 Visit Breanna Means 350.1.13.10 [place]2.[place].2.[place] [phone] Pa dical nal 179 [facility] 2019-09-27 2019-09-27 Orders Doctor VARGAS 1.2.840.114 [id number] Univers 00:00:00 00:00:00 Only Unassigned, ROSI 350.1.13.10 ity of [place] [facility] 4.2.7.2.686 Too as [phone] [facility] [address] 2019-09-25 2019-09-25 Ancillary Lorri Weinberg [facility] 1.2.840 .114 [id number] [facility] 13:03:04 13:48:04 Visit Breanna Means 350.1.13.10 [place] of [place] 4.2.7.2.686 Ofe Banks [phone] Pa dical nal 179 [facility] Results Test Description Test Time Test Comments Results Result [facility] e Comments ANG, NEPHROSTOMY 2022-05-06 Reason for TUBE CHANGE, LEFT 17:22:00 Exam:->NEOPLAS M RELATED [facility] : 1940 Sex: M FINAL REPORT Ultrasound and fluoroscopically guided left nephrostomy tube placement Clinical History: Collecting system access for chemotherapy administration. Modality: Sonography and fluoroscopy Medical Grade Shoemaker: Mike Fischer MD. Brick Layer: Saul Sotelo M.D.. Sedation: Versed 3 mg [...] tract was dilated with 7 and 9 [place]an dilators. A 8.5 [place] drainage catheter was placed into the left [...] MDReport Verified Date/Time: 05/06/2022 17:22:20 Reading Location: [place] [address] Angio Body Reading Room -Glucose meter 2022-05-03 09:58:14 Test Item Value Reference Range Interpretation Comme [facility] POC-Glucose Meter (test code = 107 mg/dL 70-110 : TESTED AT [facility] [address] [facility] 1538) [facility] 30: [employer] Laborer/Techni raoul ID = [id number] for CAREN BLACKWELL ET Lab Interpretation (test code = Normal 93600-7) [facility]-Glucose [id number] 09:58:14 Test Item Value Reference Range Interpretation Comments POC-Glucose Meter (test 107 mg/dL 70-110 : TE STED AT [facility] code = 1538) [address] [place] [address], [address]70 30: [employer]orer/Techni raoul ID = [id number] for CABCAREN TORRES ET Lab Interpretation (test Normal code = 17871-6) [facility]-Glucose [id number] 09:58:14 Test Item Value Reference Range Interpretation Comments POC-Glucose Meter (test 107 mg/dL 70-110 : TE STED AT [facility] code = 1538) [address] [place] [address], 770 30: Poultry Farm Laborer/Techni raoul ID = [id number] for CABCAREN TORRES ET Lab Interpretation (test Normal code = 57162-3) [facility]-Glucose [id number] 09:58:14 Test Item Value Reference Range Interpretation Comments POC-Glucose Meter (test 107 mg/dL 70-110 : TE STED AT [facility] code = 1538) [address] [place] [address], 770 30: Poultry Farm Laborer/Techni raoul ID = [id number] for CAREN BLACKWELL ET Lab Interpretation (test Normal code = 37169-9) [facility]-Glucose [id number] 09:58:14 Test Item Value Reference Range Interpretation Comments POC-Glucose Meter (test 107 mg/dL 70-110 : TE STED AT [facility] code = 1538) [address] [place] [address], 770 30: Poultry Farm Laborer/Techni raoul ID = [id number] for CAREN BLACKWELL ET Lab Interpretation (test Normal code = 36260-0) [facility]-GLUCOSE [id number] 09:58:14 Test Item Value Reference Range Interpretation Comments POC-GLUCOSE METER 107 mg/dL 70-110 : TESTED A T [facility] 6720 (BEAKER) (test code = [facility], 1538) [address]: Poultry Farm Laborer/Techni raoul ID = [id number] for KIRIT LUGO CBC W/PLT COUNT & AUTO [id number] 09:44:59 Test Item Value Reference Range Interpretation [...] PERCENT (BEAKER) (test code = 2801) PROTHROMBIN [id number] 09:44:04 Test Item Value Reference Range Interpretation Comments PROTIME (BEAKER) 12.7 seconds 11.9-14.2 (test code = 759) INR (BEAKER) (test 1.01 See_Comment [Automat ed message] code = 370) The system [employer] generated this result transmitted ref erence range: <=5.90. The reference range was not used to int erpret this result as normal/abnormal . RECOMMENDED COUMADIN/WARFARIN INR THERAPY RANGESSTANDARD DOSE: 2.0 - 3.0 Includes: PROPHYLAXIS for venous thrombosis, systemic embolization; TREATMENT for venous thrombosis and/or pulmonary embolus.HIGH RISK: Target INR is 2.5-3.5 for patients with mechanical heart valves.POCT URINALYSIS [id number] 00:00:00 Test Item Value Reference Range Interpretation Comments COLOR UA (test code = 5778-6) Karon YELLOW/STRAW CLARITY UA (test code = 51861-8) Clear CLEAR GLUCOSE UA (test code = 5792-7) Negative NEGATIVE BILIRUBIN UA (test code = 5770-3) Negative NEGATIVE KETONES UA (test code = 96369-1) Negative NEGATIVE SPECIFIC GRAVITY UA (test code [...] NEGATIVE REDUCING SUBSTANCES URINE (test code = 38452-8) [facility]C, EXTERNAL [id number] 19:13:00Needs left percutaneous nephrostomy tube placement (NOT PCNU), due to distal obstruction in left ureter. Reason for exam:->Severe left hydronephrosisBENITO [facility]CR[facility] REBOLLEDO : 1940 Sex: MFINAL [...] The tract was dilated and an 8 [place] pigtail external nephrostomy catheter was placed over [...] is reported as (Ka,r): 63 mGy Signed:Sam Lundeport Verified Date/Time: 01/07/2022 19:13:35 Reading Location: [facility] P048 Angio Body Reading Room Urine [id number] 11:43:21 Test Item Value Reference Range Interpretation Comments Result (test code = 6463-4) No growth [facility] [id number] 11:43:21 Test Item Value Reference Range Interpretation Comments Result (test code = 6463-4) No growth [facility] [id number] 11:43:21 Test Item Value Reference Range Interpretation Comments Result (test code = 6463-4) No growth [facility] [id number] 11:43:21 Test Item Value Reference Range Interpretation Comments Result (test code = 6463-4) No growth [facility] [id number] 11:43:21 Test Item Value Reference Range Interpretation Comments Result (test code = 6463-4) No growth [facility] [id number] 11:43:21 Test Item Value Reference Range Interpretation Comments CULTURE (BEAKER) (test code = 1095) No growth POCT-GLUCOSE [id number] 12:05:17 Test Item Value Reference Range Interpretation Comments POC-GLUCOSE METER 111 mg/dL 70-110 H : TESTED A T [facility] 6720 (BEAKER) (test code = KIZZY Taylor [facility], 1538) [address]: Poultry Farm Laborer/Techni raoul ID = [id number] for LIBBYESTRELLARcSOUZA ANGELIA BASIC METABOLIC [id number] 05:57:55 Test Item Value Reference Range Interpretation [...] S NOT APPLICABLE FOR DIALYSIS PATIEN TS. Poultry Farm Laborer ID - PIAYA LCBC W/PLT COUNT & AUTO [id number] 05:37:43 Test Item Value Reference Range Interpretation [...] PERCENT (BEAKER) (test code = 2801) Gram [id number] 00:56:10 Test Item Value Reference Range Interpretation Comments Gram Stain Result (test No organisms seen code = 1123) [facility] [id number] 00:56:10 Test Item Value Reference Range Interpretation Comments Gram Stain Result (test No organisms seen code = 1123) [facility] [id number] 00:56:10 Test Item Value Reference Range Interpretation Comments Gram Stain Result (test No organisms seen code = 1123) [facility] [id number] 00:56:10 Test Item Value Reference Range Interpretation Comments Gram Stain Result (test No organisms seen code = 1123) [facility] [id number] 00:56:10 Test Item Value Reference Range Interpretation Comments Gram Stain Result (test No organisms seen code = 1123) [facility] [id number] 00:56:10 Test Item Value Reference Range Interpretation Comments GRAM STAIN RESULT (BEAKER) <1+ WBCs (test code = 1123) GRAM STAIN RESULT (BEAKER) No organisms seen (test code = 54290) BASIC METABOLIC [id number] 05:12:35 Test Item Value Reference Range Interpretation [...] S NOT APPLICABLE FOR DIALYSIS PATIEN TS. Poultry Farm Laborer ID - PIAYA LCBC W/PLT COUNT & AUTO [id number] 04:30:47 Test Item Value Reference Range Interpretation [...] = 2801) Urinalysis w/Microscopic + Reflex to [id number] 23:36:22 Test Item Value Reference Range Interpretation Comments Color, UA (test code Yellow = 5778-6) Clarity, UA (test Clear code = 5767-9) Specific [place], UA 1.043 1.001-1.035 H (test code = 5811-5) pH, UA (test code = 6.0 5.0-8.0 5803-2) Protein, UA (test 20 mg/dL Negative A code = 20460-8) Glucose, UA (test Negative Negative code = 365) Ketones, UA (test Negative Negative code = 2514-8) Bilirubin, UA (test Negative Negative code = 59657-2) Blood, UA (test code Negative Negative = 13158-9) Nitrite, UA (test Negative Negative code = 5802-4) Leukocytes, UA (test Negative Negative code = 5799-2) Urobilinogen, UA 0.2 mg/dL 0.2-1.0 (test code = 36949-2) RBC, UA (test code = 1 See_Comment [Autom ated 60651-7) message] The system which generated this result [...] Bacteria, UA (test None Seen code = 14090-4) Crystals, Urine (test None Seen code = 63538-8) Specimen Source (test code = 2795) BOB (test code = BOB) Poultry Farm Laborer ID - [auto]Poultry Farm Laborer ID - tech Lab Interpretation Abnormal (test code = 21906-0) [facility]scopic + Reflex to Culture 2022-01-03 23:36:22 Test Item Value Reference Range Interpretation Comments Color, UA (test code Yellow = 5778-6) Clarity, UA (test Clear code = 5767-9) Specific [place], UA 1.043 1.001-1.035 H (test code = 5811-5) pH, UA (test code = 6.0 5.0-8.0 5803-2) Protein, UA (test 20 mg/dL Negative A code = 64504-9) Glucose, UA (test Negative Negative code = 365) Ketones, UA (test Negative Negative code = 2514-8) Bilirubin, UA (test Negative Negative code = 96705-5) Blood, UA (test code Negative Negative = 48428-1) Nitrite, UA (test Negative Negative code = 5802-4) Leukocytes, UA (test Negative Negative code = 5799-2) Urobilinogen, UA 0.2 mg/dL 0.2-1.0 (test code = 80658-7) RBC, UA (test code = 1 See_Comment [Autom ated 66508-9) message] The system which generated this result [...] Bacteria, UA (test None Seen code = 16023-6) Crystals, Urine (test None Seen code = 44855-9) Specimen Source (test code = 2795) BOB (test code = BOB) Poultry Farm Laborer ID - [auto]Poultry Farm Laborer ID - tech Lab Interpretation Abnormal (test code = 38482-4) [facility]/Microscopic + Reflex to Culture 2022-01-03 23:36:22 Test Item Value Reference Range Interpretation Comments Color, UA (test code Yellow = 5778-6) Clarity, UA (test Clear code = 5767-9) Specific [place], UA 1.043 1.001-1.035 H (test code = 5811-5) pH, UA (test code = 6.0 5.0-8.0 5803-2) Protein, UA (test 20 mg/dL Negative A code = 91303-8) Glucose, UA (test Negative Negative code = 365) Ketones, UA (test Negative Negative code = 2514-8) Bilirubin, UA (test Negative Negative code = 51310-0) Blood, UA (test code Negative Negative = 99516-4) Nitrite, UA (test Negative Negative code = 5802-4) Leukocytes, UA (test Negative Negative code = 5799-2) Urobilinogen, UA 0.2 mg/dL 0.2-1.0 (test code = 39964-6) RBC, UA (test code = 1 See_Comment [Autom ated 40062-4) message] The system which generated this result [...] Bacteria, UA (test None Seen code = 59032-0) Crystals, Urine (test None Seen code = 70237-0) Specimen Source (test code = 2795) BOB (test code = BOB) Poultry Farm Laborer ID - [auto]Poultry Farm Laborer ID - tech Lab Interpretation Abnormal (test code = 61827-3) [facility]/Microscopic + Reflex to Culture 2022-01-03 23:36:22 Test Item Value Reference Range Interpretation Comments Color, UA (test code Yellow = 5778-6) Clarity, UA (test Clear code = 5767-9) Specific [place], UA 1.043 1.001-1.035 H (test code = 5811-5) pH, UA (test code = 6.0 5.0-8.0 5803-2) Protein, UA (test 20 mg/dL Negative A code = 47201-0) Glucose, UA (test Negative Negative code = 365) Ketones, UA (test Negative Negative code = 2514-8) Bilirubin, UA (test Negative Negative code = 32884-0) Blood, UA (test code Negative Negative = 80726-3) Nitrite, UA (test Negative Negative code = 5802-4) Leukocytes, UA (test Negative Negative code = 5799-2) Urobilinogen, UA 0.2 mg/dL 0.2-1.0 (test code = 16329-9) RBC, UA (test code = 1 See_Comment [Autom ated 62984-0) message] The system which generated this result [...] Bacteria, UA (test None Seen code = 27889-4) Crystals, Urine (test None Seen code = 60627-9) Specimen Source (test code = 2795) BOB (test code = BOB) Poultry Farm Laborer ID - [auto]Poultry Farm Laborer ID - tech Lab Interpretation Abnormal (test code = 58236-0) [facility]/Microscopic + Reflex to Culture 2022-01-03 23:36:22 Test Item Value Reference Range Interpretation Comments Color, UA (test code Yellow = 5778-6) Clarity, UA (test Clear code = 5767-9) Specific [place], UA 1.043 1.001-1.035 H (test code = 5811-5) pH, UA (test code = 6.0 5.0-8.0 5803-2) Protein, UA (test 20 mg/dL Negative A code = 60018-3) Glucose, UA (test Negative Negative code = 365) Ketones, UA (test Negative Negative code = 2514-8) Bilirubin, UA (test Negative Negative code = 41583-3) Blood, UA (test code Negative Negative = 75394-7) Nitrite, UA (test Negative Negative code = 5802-4) Leukocytes, UA (test Negative Negative code = 5799-2) Urobilinogen, UA 0.2 mg/dL 0.2-1.0 (test code = 34933-4) RBC, UA (test code = 1 See_Comment [Autom ated 18082-0) message] The system which generated this result [...] Bacteria, UA (test None Seen code = 39390-2) Crystals, Urine (test None Seen code = 41762-5) Specimen Source (test code = 2795) BOB (test code = BOB) Poultry Farm Laborer ID - [auto]Poultry Farm Laborer ID - tech Lab Interpretation Abnormal (test code = 68748-1) [facility]/ REFLEX URINE [id number] 23:36:22 Test Item Value Reference Range Interpretation [...] = 1521) SOURCE(BEAKER) (test code = 2795) Poultry Farm Laborer ID - [auto]Poultry Farm Laborer ID - techCOMPREHENSIVE METABOLIC [id number] 23:07:39 Test Item Value Reference Range Interpretation [...] S NOT APPLICABLE FOR DIALYSIS PATIEN TS. Poultry Farm Laborer ID - DBCBC W/PLT COUNT & AUTO [id number] 23:06:50 Test Item Value Reference Range Interpretation [...] 0-1 PERCENT (BEAKER) (test code = 2801) [id number] 23:01:04 Test Item Value Reference Range Interpretation [...] 2.5-3.5 for patients with mechanical heart valves.PROTHROMBIN [id number] 23:00:22 Test Item Value Reference Range Interpretation Comments PROTIME (BEAKER) 13.0 seconds 11.9-14.2 (test code = 759) INR (BEAKER) (test 1.00 See_Comment [Automat ed message] code = 370) The system [employer] h generated this result transmitted ref erence range: <=5.90. The reference range was not used to int erpret this result as normal/abnormal . RECOMMENDED COUMADIN/WARFARIN INR THERAPY RANGESSTANDARD DOSE: 2.0 - 3.0 Includes: PROPHYLAXIS for venous thrombosis, systemic embolization; TREATMENT for venous thrombosis and/or pulmonary embolus.HIGH RISK: Target INR is 2.5-3.5 for patients with mechanical heart valves.URINE AND [id number] 19:16:00 Test Item Value Reference Range Interpretation Comments UA Sq Epi (test code = UA Sq Epi) [facility] [id number] 19:16:00 Test Item Value Reference Range Interpretation Comments UA Bacteria (test code = UA Bacteria) MANY [facility] [id number] 19:16:00 Test Item Value Reference Range Interpretation Comments UA Hyal Cast (test code = UA Hyal Cast) 0-5 [facility] [id number] 19:16:00 Test Item Value Reference Range Interpretation Comments UA Reflex (test code = UA Reflex) SEE COMMENT [facility] [id number] 19:16:00 Test Item Value Reference Range Interpretation Comments UA Color (test code = UA Color) YELLOW [facility] AND [id number] 19:16:00 Test Item Value Reference Range Interpretation Comments UA Color (test code = UA Color) YELLOW [facility] AND [id number] 19:16:00 Test Item Value Reference Range Interpretation Comments UA Turbidity (test code = UA CLOUDY Turbidity) [facility] AND [id number] 19:16:00 Test Item Value Reference Range Interpretation Comments UA Spec Grav (test code = UA Spec 1.016 1 1.001-1.035 Grav) [facility] AND [id number] 19:16:00 Test Item Value Reference Range Interpretation Comments UA pH (test code = UA pH) 6.5 1 5.0-8.0 [facility] AND [id number] 19:16:00 Test Item Value Reference Range Interpretation Comments UA Glucose (test code = UA Glucose) NEGATIVE [facility] AND [id number] 19:16:00 Test Item Value Reference Range Interpretation Comments UA Turbidity (test code = UA CLOUDY Turbidity) [facility] AND [id number] 19:16:00 Test Item Value Reference Range Interpretation Comments UA Bili (test code = UA Bili) NEGATIVE [facility] AND [id number] 19:16:00 Test Item Value Reference Range Interpretation Comments UA Ketones (test code = UA Ketones) NEGATIVE [facility] AND [id number] 19:16:00 Test Item Value Reference Range Interpretation Comments UA Blood (test code = UA Blood) TRACE [facility] AND [id number] 19:16:00 Test Item Value Reference Range Interpretation Comments UA Protein (test code = UA Protein) TRACE [facility] AND [id number] 19:16:00 Test Item Value Reference Range Interpretation Comments UA Nitrite (test code = UA Nitrite) NEGATIVE [facility] AND [id number] 19:16:00 Test Item Value Reference Range Interpretation Comments UA Leuk Est (test code = UA Leuk NEGATIVE Est) [facility] AND [id number] 19:16:00 Test Item Value Reference Range Interpretation Comments UA WBC (test code = UA WBC) 6-10 [facility] [id number] 19:16:00 Test Item Value Reference Range Interpretation Comments UA RBC (test code = UA RBC) 3-10 [facility] [id number] 19:16:00 Test Item Value Reference Range Interpretation Comments UA Sq Epi (test code = UA Sq Epi) 0-5 [facility] [id number] 19:16:00 Test Item Value Reference Range Interpretation Comments UA Bacteria (test code = UA Bacteria) MANY [facility] [id number] 19:16:00 Test Item Value Reference Range Interpretation Comments UA Hyal Cast (test code = UA Hyal Cast) 0-5 [facility] [id number] 19:16:00 Test Item Value Reference Range Interpretation Comments UA Reflex (test code = UA Reflex) SEE COMMENT [facility] [id number] 19:16:00 Test Item Value Reference Range Interpretation Comments UA Spec Grav (test code = UA Spec 1.016 1 1.001-1.035 Grav) [facility] [id number] 19:16:00 Test Item Value Reference Range Interpretation Comments UA pH (test code = UA pH) 6.5 1 5.0-8.0 [facility] [id number] 19:16:00 Test Item Value Reference Range Interpretation Comments UA Glucose (test code = UA Glucose) NEGATIVE [facility] [id number] 19:16:00 Test Item Value Reference Range Interpretation Comments UA Bili (test code = UA Bili) NEGATIVE [facility] [id number] 19:16:00 Test Item Value Reference Range Interpretation Comments UA Ketones (test code = UA Ketones) NEGATIVE [facility] [id number] 19:16:00 Test Item Value Reference Range Interpretation Comments UA Blood (test code = UA Blood) TRACE [facility] [id number] 19:16:00 Test Item Value Reference Range Interpretation Comments UA Protein (test code = UA Protein) TRACE [facility] [id number] 19:16:00 Test Item Value Reference Range Interpretation Comments UA Nitrite (test code = UA Nitrite) NEGATIVE [facility] [id number] 19:16:00 Test Item Value Reference Range Interpretation Comments UA Leuk Est (test code = UA Leuk NEGATIVE Est) [facility] AND [id number] 19:16:00 Test Item Value Reference Range Interpretation Comments UA WBC (test code = UA WBC) 6-10 [facility] AND [id number] 19:16:00 Test Item Value Reference Range Interpretation Comments UA RBC (test code = UA RBC) 3-10 [facility] AND [id number] 19:16:00 Test Item Value Reference Range Interpretation Comments UA Sq Epi (test code = UA Sq Epi) 0-5 [facility] AND [id number] 19:16:00 Test Item Value Reference Range Interpretation Comments UA Bacteria (test code = UA Bacteria) MANY [facility] AND [id number] 19:16:00 Test Item Value Reference Range Interpretation Comments UA Hyal Cast (test code = UA Hyal Cast) 0-5 [facility] AND [id number] 19:16:00 Test Item Value Reference Range Interpretation Comments UA Reflex (test code = UA Reflex) SEE COMMENT [facility] AND [id number] 19:16:00 Test Item Value Reference Range Interpretation Comments UA Color (test code = UA Color) YELLOW [facility] AND [id number] 19:16:00 Test Item Value Reference Range Interpretation Comments UA Turbidity (test code = UA CLOUDY Turbidity) [facility] AND [id number] 19:16:00 Test Item Value Reference Range Interpretation Comments UA Spec Grav (test code = UA Spec 1.016 1 1.001-1.035 Grav) [facility] AND [id number] 19:16:00 Test Item Value Reference Range Interpretation Comments UA pH (test code = UA pH) 6.5 1 5.0-8.0 [facility] AND [id number] 19:16:00 Test Item Value Reference Range Interpretation Comments UA Glucose (test code = UA Glucose) NEGATIVE [facility] AND [id number] 19:16:00 Test Item Value Reference Range Interpretation Comments UA Bili (test code = UA Bili) NEGATIVE [facility] AND [id number] 19:16:00 Test Item Value Reference Range Interpretation Comments UA Ketones (test code = UA Ketones) NEGATIVE [facility] [id number] 19:16:00 Test Item Value Reference Range Interpretation Comments UA Blood (test code = UA Blood) TRACE [facility] [id number] 19:16:00 Test Item Value Reference Range Interpretation Comments UA Protein (test code = UA Protein) TRACE [facility] [id number] 19:16:00 Test Item Value Reference Range Interpretation Comments UA Nitrite (test code = UA Nitrite) NEGATIVE [facility] [id number] 19:16:00 Test Item Value Reference Range Interpretation Comments UA Leuk Est (test code = UA Leuk NEGATIVE Est) [facility] [id number] 19:16:00 Test Item Value Reference Range Interpretation Comments UA WBC (test code = UA WBC) 6-10 [facility] [id number] 19:16:00 Test Item Value Reference Range Interpretation Comments UA RBC (test code = UA RBC) 3-10 [facility] [id number] 19:16:00 Test Item Value Reference Range Interpretation Comments UA Sq Epi (test code = UA Sq Epi) 0-5 [facility] [id number] 19:16:00 Test Item Value Reference Range Interpretation Comments UA Bacteria (test code = UA Bacteria) MANY [facility] [id number] 19:16:00 Test Item Value Reference Range Interpretation Comments UA Hyal Cast (test code = UA Hyal Cast) 0-5 [facility] [id number] 19:16:00 Test Item Value Reference Range Interpretation Comments UA Reflex (test code = UA Reflex) SEE COMMENT [facility] [id number] 19:16:00 Test Item Value Reference Range Interpretation Comments UA Color (test code = UA Color) YELLOW [facility] [id number] 19:16:00 Test Item Value Reference Range Interpretation Comments UA Turbidity (test code = UA CLOUDY Turbidity) [facility] [id number] 19:16:00 Test Item Value Reference Range Interpretation Comments UA Spec Grav (test code = UA Spec 1.016 1 1.001-1.035 Grav) [facility] [id number] 19:16:00 Test Item Value Reference Range Interpretation Comments UA pH (test code = UA pH) 6.5 1 5.0-8.0 [facility] [id number] 19:16:00 Test Item Value Reference Range Interpretation Comments UA Glucose (test code = UA Glucose) NEGATIVE [facility] [id number] 19:16:00 Test Item Value Reference Range Interpretation Comments UA Bili (test code = UA Bili) NEGATIVE [facility] [id number] 19:16:00 Test Item Value Reference Range Interpretation Comments UA Ketones (test code = UA Ketones) NEGATIVE [facility] [id number] 19:16:00 Test Item Value Reference Range Interpretation Comments UA Blood (test code = UA Blood) TRACE [facility] [id number] 19:16:00 Test Item Value Reference Range Interpretation Comments UA Protein (test code = UA Protein) TRACE [facility] [id number] 19:16:00 Test Item Value Reference Range Interpretation Comments UA Nitrite (test code = UA Nitrite) NEGATIVE [facility] [id number] 19:16:00 Test Item Value Reference Range Interpretation Comments UA Leuk Est (test code = UA Leuk NEGATIVE Est) [facility] [id number] 19:16:00 Test Item Value Reference Range Interpretation Comments UA WBC (test code = UA WBC) 6-10 [facility] [id number] 19:16:00 Test Item Value Reference Range Interpretation Comments UA RBC (test code = UA RBC) 3-10 [facility] [id number] 19:16:00 Test Item Value Reference Range Interpretation Comments UA Sq Epi (test code = UA Sq Epi) 0-5 [facility] [id number] 19:16:00 Test Item Value Reference Range Interpretation Comments UA Bacteria (test code = UA Bacteria) MANY [facility] [id number] 19:16:00 Test Item Value Reference Range Interpretation Comments UA Hyal Cast (test code = UA Hyal Cast) 0-5 [facility] [id number] 19:16:00 Test Item Value Reference Range Interpretation Comments UA Reflex (test code = UA Reflex) SEE COMMENT [facility] [id number] 19:16:00 Test Item Value Reference Range Interpretation Comments UA Color (test code = UA Color) YELLOW [facility] [id number] 19:16:00 Test Item Value Reference Range Interpretation Comments UA Turbidity (test code = UA CLOUDY Turbidity) [facility] [id number] 19:16:00 Test Item Value Reference Range Interpretation Comments UA Spec Grav (test code = UA Spec 1.016 1 1.001-1.035 Grav) [facility] AND [id number] 19:16:00 Test Item Value Reference Range Interpretation Comments UA pH (test code = UA pH) 6.5 1 5.0-8.0 [facility] AND [id number] 19:16:00 Test Item Value Reference Range Interpretation Comments UA Glucose (test code = UA Glucose) NEGATIVE [facility] AND [id number] 19:16:00 Test Item Value Reference Range Interpretation Comments UA Bili (test code = UA Bili) NEGATIVE [facility] AND [id number] 19:16:00 Test Item Value Reference Range Interpretation Comments UA Ketones (test code = UA Ketones) NEGATIVE [facility] [id number] 19:16:00 Test Item Value Reference Range Interpretation Comments UA Blood (test code = UA Blood) TRACE [facility] [id number] 19:16:00 Test Item Value Reference Range Interpretation Comments UA Protein (test code = UA Protein) TRACE [facility] [id number] 19:16:00 Test Item Value Reference Range Interpretation Comments UA Nitrite (test code = UA Nitrite) [facility]IVE [facility] [id number] 19:16:00 Test Item Value Reference Range Interpretation Comments UA Leuk Est (test code = UA Leuk NEGATIVE Est) [facility] AND [id number] 19:16:00 Test Item Value Reference Range Interpretation Comments UA WBC (test code = UA WBC) 6-10 [facility] [id number] 19:16:00 Test Item Value Reference Range Interpretation Comments UA RBC (test code = UA RBC) 3-10 [facility] [id number] 19:16:00 Test Item Value Reference Range Interpretation Comments UA Sq Epi (test code = UA Sq Epi) 0-5 [facility] [id number] 19:16:00 Test Item Value Reference Range Interpretation Comments UA Bacteria (test code = UA Bacteria) MANY [facility] AND [id number] 19:16:00 Test Item Value Reference Range Interpretation Comments UA Hyal Cast (test code = UA Hyal Cast) 0-5 [facility] AND [id number] 19:16:00 Test Item Value Reference Range Interpretation Comments UA Reflex (test code = UA Reflex) SEE COMMENT [facility] AND [id number] 19:16:00 Test Item Value Reference Range Interpretation Comments UA Color (test code = UA Color) YELLOW [facility] AND [id number] 19:16:00 Test Item Value Reference Range Interpretation Comments UA Turbidity (test code = UA CLOUDY Turbidity) [facility] AND [id number] 19:16:00 Test Item Value Reference Range Interpretation Comments UA Spec Grav (test code = UA Spec 1.016 1 1.001-1.035 Grav) [facility] AND [id number] 19:16:00 Test Item Value Reference Range Interpretation Comments UA pH (test code = UA pH) 6.5 1 5.0-8.0 [facility] AND [id number] 19:16:00 Test Item Value Reference Range Interpretation Comments UA Glucose (test code = UA Glucose) NEGATIVE [facility] AND [id number] 19:16:00 Test Item Value Reference Range Interpretation Comments UA Bili (test code = UA Bili) NEGATIVE [facility] AND [id number] 19:16:00 Test Item Value Reference Range Interpretation Comments UA Ketones (test code = UA Ketones) NEGATIVE [facility] AND [id number] 19:16:00 Test Item Value Reference Range Interpretation Comments UA Blood (test code = UA Blood) TRACE [facility] AND [id number] 19:16:00 Test Item Value Reference Range Interpretation Comments UA Protein (test code = UA Protein) TRACE [facility] AND [id number] 19:16:00 Test Item Value Reference Range Interpretation Comments UA Nitrite (test code = UA Nitrite) NEGATIVE [facility] AND [id number] 19:16:00 Test Item Value Reference Range Interpretation Comments UA Leuk Est (test code = UA Leuk NEGATIVE Est) [facility] AND [id number] 19:16:00 Test Item Value Reference Range Interpretation Comments UA WBC (test code = UA WBC) 6-10 [facility] AND [id number] 19:16:00 Test Item Value Reference Range Interpretation Comments UA RBC (test code = UA RBC) 3-10 [id number] 10:40:00 Test Item Value Reference Range Interpretation Comments POC-CREATININE 0.9 mg/dL 0.6-1.3 TESTED AT [facility]-KG (BEAKER) (test [address] [facility] code = 1859) [place] [address] POC-EGFR 82 mL/min/1.73M2 (BEAKER) (test code = 1860) BASIC METABOLIC [id number] 09:21:00 Test Item Value Reference Range Interpretation [...] ESTIMATED GFR. CREATINE KINASE (CK), TOTAL AND [id number] 08:57:00 Test Item Value Reference Range Interpretation Comments CREATINE KINASE TOTAL (BEAKER) 128 U/L 29-200 (test code = 380) CREATINE KINASE-MB (BEAKER) (test 3.6 ng/mL 0.0-6.6 code = 750) CREATINE KINASE-MB INDEX (BEAKER) 2.8 % (test code = 395) Effective 07/30/2014: CK-MB Reference Range ChangeNew: 0.0-6.6 Previous: 0.0-4.9CK-MB Reference Range:<6.7 Normal6.7-10.0 Borderline>10.0 Abnormal TROPONIN [id number] 08:57:00 Test Item Value Reference Range Interpretation [...] 29 pg/mL 0-100 (test code = 700) [id number] 08:50:00 Test Item Value Reference Range Interpretation Comments MAGNESIUM (BEAKER) (test code = 2.1 mg/dL 1.6-2.6 627) [id number] 08:47:00 Test Item Value Reference Range Interpretation [...] mechanical heart valves.CBC W/PLT COUNT & AUTO [id number] 08:36:00 Test Item Value Reference Range Interpretation [...]
[2022-12-26] MEDS ORDERED: FAMOTIDINE 20 MG/2 ML VIAL IV ONE (11:19)
[2022-12-26] MEDS ORDERED: ONDANSETRON 4 MG/2 ML VIAL ONE (11:19)
[2022-12-26] MEDS ORDERED: NA CHLORIDE 0.9% 1,000 ML ONE (11:19)
[2022-12-26] MEDS ORDERED: FENTANYL CITR 100 MCG/2 ML ONE (11:19)
[2022-12-26 11:24] LABS: Absolute Lymphocytes (CBC) 2.2 K/uL (0.7-4.9); Hematocrit 41.3 % (39.6-49.0); Lymphocytes % 38.4 % (15.3-44.8); MCV 99.7 fL (80-100); MPV 7.7 fL (7.6-11.3); RBC Red Blood Cell Count 4.14 M/uL (4.33-5.43)
[2022-12-26 11:26] LABS: Protime INR 0.92
[2022-12-26 11:42] LABS: Albumin 3.3 g/dL (3.4-5.0); Bilirubin Direct 0.2 mg/dL (0-0.2); Bilirubin Total 0.5 mg/dL (0.2-1.0); Magnesium 2.3 mg/dL (1.6-2.4); Protein, Total 6.2 g/dL (6.4-8.2); Troponin High Sensitivity 14.5 pg/mL (<58.9)
[2022-12-26] MEDS ORDERED: NA CHLORIDE 0.9% 100 ML ONE (12:08)
[2022-12-26] MEDS ORDERED: PIPERACIL/TAZO 3.375 GM VIAL IV ONE (12:09)
--- NOTE | 2022-12-26 12:28 | RAD REPORT ---
EXAM DESCRIPTION: RADChest Single View12/26/2022 11:55 am CLINICAL HISTORY: ABDOMINAL DISTENTION COMPARISON: Chest Pa And Lat (2 Views) dated 11/11/2022; Abdomen 1 View (KUB) dated 03/18/2022; Abdomen 1 View (KUB) dated 01/27/2022; Chest Single View dated 12/10/2021 TECHNIQUE: Portable AP view of the chest. FINDINGS: The lungs are clear.Bibasilar atelectasis. No pneumothorax or effusion. The cardiomediasti nal contours are unremarkable. IMPRESSION: No acute cardiopulmonary process.
[2022-12-26 12:47] LABS: Specific Gravity 1.009 (1.005-1.030); Urine Bacteria 20-50 /HPF (<20); Urine Bilirubin NEGATIVE (Negative); Urine Blood 3+ (OVER) (Negative); Urine Clarity Turbid (Clear); Urine Color Light-Yellow (Yellow); Urine Glucose NEGATIVE (Negative); Urine Mucus Slight /HPF (None Seen); Urine Protein 1+ (Negative); Urine Urobilinogen Normal (Normal); Urine WBC Clump Occasional /HPF (None Seen)
--- NOTE | 2022-12-26 13:48 | RAD REPORT ---
EXAM DESCRIPTION: CT - Chest Abdomen Pelvis W Cont - 12/26/2022 1:07 pm CLINICAL HISTORY: Abdominal distention;Pain COMPARISON: Abdomen Pelvis W/Wo Contrast dated 08/27/2022 TECHNIQUE: Thin axial CT images of the chest, abdomen, and pelvis, obtained following intravenous ad ministration of 95 mL Isovue-300. Multiplanar reformats were generated and reviewed. All CT scans are performed using dose optimization technique as appropriate and may include automated exposure control or mA/KV adjustment according to patient size. FINDINGS: The lungs are clear.No pleural or pericardial effusion.No intrathoracic adenopathy. The liver again demonstrates numerous hypoattenuating cysts, largest measuring 1.3 centimeter in segm ent 4A. Diffuse parenchymal hypoattenuation of the liver, suggesting steatosis. Gallbladder, Spleen, pancreas, and adrenal glands are within normal limits. Atrophic changes of the left kidney. A left ureteral stent, with sequelae of left ureter re- implanta tion are again seen, stable. Mild left hydronephrosis and proximal hydroureter, appears new since the prior CT. Mild urothelial enhancement along the renal pelvis and proximal ureter, raises concern for an ascending infection. Sequelae of proximal right hemicolectomy again noted. No bowel obstruction, free air, free fluid or a bscess. Incidentally noted diverticulum arising from the third part of the duodenum. Normal appendix. No pathologic lymphadenopathy in the abdomen or pelvis. Bladder is moderately distended. A degree of prostatomegaly is noted. No worrisome osseous finding. IMPRESSION: New mild left hydronephrosis and dilation of the left proximal ureter. Urothelial enhanc ement is noted along the segments, raising concern for an ascending infection. Atrophic changes of the left kidney and a stable position of the left ureteral stent are again noted. Other stable findings as detailed above, including liver parenchymal hypoattenuation suggesting stea tosis. The findings were communicated to Sudhakar Engel on 12/26/2022 at 13:43 hours.
--- NOTE | 2022-12-26 13:49 | ER ---
Nurse's Notes [facility] Name: Carlitos Peralta Age: 82 yrs Sex: Male : 1940 Arrival Date: 12/26/2022 Time: 10:55 Bed 19 Private MD: Diagnosis: Abdominal pain, Generalized;Vomiting;UTI/ Urinary tract infection, site not specified;Hydronephrosis with ureteral stricture, not elsewhere classified;Retention of urine, unspecified Presentation: 12/26 10:59 Chief complaint: EMS states: toned out to home - abdominal pain since 0200 this AM. ld1 Refused narcotics and zofran from EMS. Coronavirus screen: At this time, the client does not indicate any symptoms associated with coronavirus-19. Ebola Screen: No symptoms or risks identified at this time. Risk Assessment: Do you want to hurt yourself or someone else? Patient reports no desire to harm self or others. Onset of symptoms was December 26, 2022. 10:59 Method Of Arrival: EMS: [facility] ld1 10:59 Acuity: LUISITO 3 ld1 Triage Assessment: 11:00 General: Appears in no apparent distress. uncomfortable, Behavior is calm, cooperative, ld1 appropriate for age. Pain: Complains of pain in abdomen Pain does not radiate. Pain currently is 8 out of 10 on a pain scale. Quality of pain is described as throbbing, Pain began 0200 AM. EENT: No signs and/or symptoms were reported regarding the EENT system. Neuro: Level of Consciousness is awake, alert, obeys commands, Oriented to person, place, time, situation. Cardiovascular: Capillary refill < 3 seconds Patient's skin is warm and dry. Respiratory: Airway is patent Respiratory effort is even, unlabored. GI: Abdomen is round non-distended, Reports lower abdominal pain, upper abdominal pain. : No signs and/or symptoms were reported regarding the genitourinary system. Derm: No signs and/or symptoms reported regarding the dermatologic system. Musculoskeletal: No signs and/or symptoms reported regarding the musculoskeletal system. Historical: - Allergies: 11:00 No Known Allergies; ld1 - PMHx: 11:00 a fib; Arthritis; CA; Hypertensive disorder; Bladder cancer; ld1 - PSHx: 11:00 hernia repair; colon cancer sx; mult eye sx; ld1 - Immunization history:: Adult Immunizations up to date, Client reports receiving the 2nd dose of the Covid vaccine. - Social history:: Smoking status: Patient denies any tobacco usage or history of. Patient/guardian denies using alcohol. - Family history:: not pertinent. Screenin:02 [facility] ED Fall Risk Assessment (Adult) History of falling in the last 3 months, ld1 including since admission No falls in past 3 months (0 pts). Abuse screen: Denies threats or abuse. Denies injuries from another. Nutritional screening: No deficits noted. Tuberculosis screening: No symptoms or risk factors identified. Assessment: 11:02 Reassessment: See triage assessment. ld1 13:00 Reassessment: Patient appears in no apparent distress at this time. No changes from ld1 previously documented assessment. Patient and/or family updated on plan of care and expected duration. Pain level reassessed. Patient is alert, oriented x 3, equal unlabored respirations, skin warm/dry/pink. 15:00 Reassessment: No changes from previously documented assessment. Patient is alert, ld1 oriented x 3, equal unlabored respirations, skin warm/dry/pink. 16:30 Reassessment: Patient appears in no apparent distress at this time. No changes from ld1 previously documented assessment. Patient and/or family updated on plan of care and expected duration. Pain level reassessed. Patient is alert, oriented x 3, equal unlabored respirations, skin warm/dry/pink. 18:00 Reassessment: Patient appears in no apparent distress at this time. No changes from ld1 previously documented assessment. Patient and/or family updated on plan of care and expected duration. Pain level reassessed. Patient is alert, oriented x 3, equal unlabored respirations, skin warm/dry/pink. Vital Signs: 11:04 BP 104 / 61; Pulse 71; Resp 15; Temp 97.6(O); Pulse Ox 100% on R/A; Weight 104 kg; ld1 Height 5 ft. 10 in. ; Pain 8/10; 12:12 BP 103 / 69; Pulse 73; Resp 18; Pulse Ox 100% on 3 lpm NC; ld1 15:00 BP 105 / 65; Pulse 78; Resp 19; Pulse Ox 100% on R/A; ld1 16:00 BP 124 / 73; Pulse 80; Resp 15; Pulse Ox 100% on R/A; ld1 17:00 BP 100 / 62; Pulse 82; Resp 18; Pulse Ox 99% on R/A; ld1 17:45 BP 119 / 62; Pulse 83; Resp 22; Pulse Ox 99% on R/A; ld1 18:06 BP 119 / 62; Pulse 83; Resp 18; Pulse Ox 97% on R/A; ld1 19:00 BP 115 / 60; Pulse 79; Resp 19; Pulse Ox 99% on R/A; ll3 20:00 BP 121 / 65; Pulse 86; Resp 15; Pulse Ox 100% on R/A; ll3 21:20 BP 132 / 73; Pulse 85; Resp 20; Pulse Ox 99% on R/A; ll3 11:04 Body Mass Index 32.90 (104.00 kg, 177.8 cm) ld1 11:04 Pain Scale: Adult ld1 ED Course: 10:57 Patient arrived in ED. lacho 10:57 Sudhakar Engel MD is Attending Physician. lacho 10:59 Mellisa Fagan, GIANNA is Primary Nurse. ld1 10:59 Maintain EMS IV. Dressing intact. Good blood return noted. Site clean \T\ dry. Gauge \T\ ld 1 site: 20G RAC. 11:00 Triage completed. ld1 11:00 Arm band placed on right wrist. ld1 11:02 Patient has correct armband on for positive identification. Placed in gown. Bed in low ld1 position. Call light in reach. Side rails up X2. property assessment monitor on. Pulse ox on. NIBP on. Door closed. Noise minimized. Warm blanket given. 11:17 Basic Metabolic Panel Sent. zm 11:17 CBC with Diff Sent. zm 11:17 LFT's Sent. zm 11:17 Magnesium Sent. zm 11:17 NT PRO-BNP Sent. zm 11:17 PT-INR Sent. zm 11:17 Troponin HS Sent. zm 11:17 Lipase Sent. zm 11:56 XRAY Chest (1 view) In Process Unspecified. EDMS 12:32 Urinalysis w/ reflexes Sent. ld1 13:10 CT Chest, Abdomen, Pelvis - W/Contrast In Process Unspecified. EDMS 13:37 Danny Schultz MD is Hospitalizing Provider. lacho 14:54 No provider procedures requiring assistance completed. Harley cath inserted, using ld1 sterile technique, 16 Fr., by sd, balloon inflated, to gravity drainage, clamped. returned clear yellow urine. Patient tolerated well. 21:21 Patient admitted, IV remains in place. ll3 Administered Medications: 11:18 Drug: NS 0.9% IV 1000 ml Route: IV; Rate: 1 bolus; Site: right antecubital; ld1 11:18 Drug: Famotidine IVP 20 mg Route: IVP; Site: right antecubital; ld1 11:18 Drug: Ondansetron IVP 4 mg Route: IVP; Site: right antecubital; ld1 14:55 Drug: Piperacillin-Tazobactam IVPB 3.375 grams Route: IVPB; Infused Over: 60 mins; ld1 Site: right antecubital; 18:17 Not Given (Patient Refused): fentaNYL (PF) IVP 25 mcg IVP once ld1 18:17 Not Given (Patient Refused): fentaNYL (PF) IVP 25 mcg IVP once ld1 Medication: 21:21 VIS not applicable for this client. ll3 Output: 18:10 Urine: 1800ml (Harley); Total: 1800ml. ld1 20:37 Urine: 750ml (Harley); Total: 2550ml. ll3 Outcome: 13:48 Decision to Hospitalize by Provider. lacho 21:21 Admitted to Tele accompanied by pan, via stretcher, room 413, with chart, Report ll3 called to GIANNA Barker 21:21 Condition: stable 21:21 Discharge instructions given to patient, Instructed on the need for admit, Demonstrated understanding of instructions. 21:21 Patient left the ED. ll3 Signatures: Dispatcher [employer] Sudhakar Preciado MD MD cha Sims, Lauren, RN RN ld1 Lina Izquierdo RN RN ll3 Meagan Ji
--- NOTE | 2022-12-26 13:49 | EDPHYS ---
Physician Documentation [facility] Name: Carlitos Peralta Age: 82 yrs Sex: Male : 1940 Arrival Date: 12/26/2022 Time: 10:55 Bed 19 Private MD: ED Physician Sudhakar Engel HPI: 12/26 11:07 This 82 yrs old Male presents to ER via EMS with complaints of Abdominal Pain.lacho 11:07 The patient presents with abdominal pain in the upper abdomen, in the lower abdomen, lacho abdominal distention in the upper abdomen, in the lower abdomen. Onset: The symptoms/episode began/occurred 1 day(s) ago. The symptoms do not radiate. Associated signs and symptoms: Pertinent positives: nausea and vomiting. The symptoms are described as constant, crampy. Modifying factors: The symptoms are alleviated by nothing, the symptoms are aggravated by nothing. Severity of pain: At its worst the pain was severe in the emergency department the pain is unchanged. The patient has experienced similar episodes in the past, several times. Historical: - Allergies: 11:00 No Known Allergies; ld1 - PMHx: 11:00 a fib; Arthritis; CA; Hypertensive disorder; Bladder cancer; ld1 - PSHx: 11:00 hernia repair; colon cancer sx; mult eye sx; ld1 - Immunization history:: Adult Immunizations up to date, Client reports receiving the 2nd dose of the Covid vaccine. - Social history:: Smoking status: Patient denies any tobacco usage or history of. Patient/guardian denies using alcohol. - Family history:: not pertinent. ROS: 11:07 Constitutional: Negative for fever, chills, and weight loss, Eyes: Negative for injury, lacho pain, redness, and discharge, ENT: Negative for injury, pain, and discharge, Neck: Negative for injury, pain, and swelling, Cardiovascular: Negative for chest pain, palpitations, and edema, Respiratory: Negative for shortness of breath, cough, wheezing, and pleuritic chest pain, Back: Negative for injury and pain, : Negative for injury, bleeding, discharge, and swelling, MS/Extremity: Negative for injury and deformity, Skin: Negative for injury, rash, and discoloration, Neuro: Negative for headache, weakness, numbness, tingling, and seizure, Psych: Negative for depression, anxiety, suicide ideation, homicidal ideation, and hallucinations, Allergy/Immunology: Negative for hives, rash, and allergies, Endocrine: Negative for neck swelling, polydipsia, polyuria, polyphagia, and marked weight changes, Hematologic/Lymphatic: Negative for swollen nodes, abnormal bleeding, and unusual bruising. 11:07 Abdomen/GI: Positive for abdominal pain, nausea and vomiting, of the right upper quadrant, left upper quadrant, right lower quadrant and left lower quadrant. Exam: 11:07 Constitutional: This is a well developed, well nourished patient who is awake, alert, lacho and in no acute distress. Head/Face: Normocephalic, atraumatic. Eyes: Pupils equal round and reactive to light, extra-ocular motions intact. Lids and lashes normal. Conjunctiva and sclera are non-icteric and not injected. Cornea within normal limits. Periorbital areas with no swelling, redness, or edema. ENT: Nares patent. No nasal discharge, no septal abnormalities noted. Tympanic membranes are normal and external auditory canals are clear. Oropharynx with no redness, swelling, or masses, exudates, or evidence of obstruction, uvula midline. Mucous membranes moist. Neck: Trachea midline, no thyromegaly or masses palpated, and no cervical lymphadenopathy. Supple, full range of motion without nuchal rigidity, or vertebral point tenderness. No Meningismus. Chest/axilla: Normal chest wall appearance and motion. Nontender with no deformity. No lesions are appreciated. Cardiovascular: Regular rate and rhythm with a normal S1 and S2. No gallops, murmurs, or rubs. Normal PMI, no JVD. No pulse deficits. Respiratory: Lungs have equal breath sounds bilaterally, clear to auscultation and percussion. No rales, rhonchi or wheezes noted. No increased work of breathing, no retractions or nasal flaring. Back: No spinal tenderness. No costovertebral tenderness. Full range of motion. Male : Normal genitalia with no discharge or lesions. Skin: Warm, dry with normal turgor. Normal color with no rashes, no lesions, and no evidence of cellulitis. MS/ Extremity: Pulses equal, no cyanosis. Neurovascular intact. Full, normal range of motion. Neuro: Awake and alert, GCS 15, oriented to person, place, time, and situation. Cranial nerves II-XII grossly intact. Motor strength 5/5 in all extremities. Sensory grossly intact. Cerebellar exam normal. Normal gait. Psych: Awake, alert, with orientation to person, place and time. Behavior, mood, and affect are within normal limits. 11:07 Abdomen/GI: Inspection: abdomen appears normal, Bowel sounds: hyperactive, Palpation: moderate abdominal tenderness, severe abdominal tenderness, in all quadrants, Liver: is firm, Hernia: not appreciated. 11:59 ECG was reviewed by the Attending Physician. [facility] Vital Signs: 11:04 BP 104 / 61; Pulse 71; Resp 15; Temp 97.6(O); Pulse Ox 100% on R/A; Weight 104 kg; ld1 Height 5 ft. 10 in. ; Pain 8/10; 12:12 BP 103 / 69; Pulse 73; Resp 18; Pulse Ox 100% on 3 lpm NC; ld1 15:00 BP 105 / 65; Pulse 78; Resp 19; Pulse Ox 100% on R/A; ld1 16:00 BP 124 / 73; Pulse 80; Resp 15; Pulse Ox 100% on R/A; ld1 17:00 BP 100 / 62; Pulse 82; Resp 18; Pulse Ox 99% on R/A; ld1 17:45 BP 119 / 62; Pulse 83; Resp 22; Pulse Ox 99% on R/A; ld1 18:06 BP 119 / 62; Pulse 83; Resp 18; Pulse Ox 97% on R/A; ld1 19:00 BP 115 / 60; Pulse 79; Resp 19; Pulse Ox 99% on R/A; ll3 20:00 BP 121 / 65; Pulse 86; Resp 15; Pulse Ox 100% on R/A; ll3 21:20 BP 132 / 73; Pulse 85; Resp 20; Pulse Ox 99% on R/A; ll3 11:04 Body Mass Index 32.90 (104.00 kg, 177.8 cm) ld1 11:04 Pain Scale: Adult ld1 MDM: 10:57 Patient medically screened. lacho 10:57 Patient medically screened. lacho 11:10 Differential diagnosis: acute coronary syndrome, bowel obstruction, diverticulitis, lacho gastritis, Irritable bowel syndrome, Mesenteric ischemia or infarction, non-specific abd pain, pancreatitis, Peptic Ulcer Disease, Perf. Duodenal Ulcer, Pyelonephritis, urinary tract infection. Data reviewed: vital signs, nurses notes, lab test result(s), EKG, radiologic studies, CT scan, plain films. Consideration of Admission/Observation Patient was admitted/placed on observation. Escalation of care including admission/observation considered. Test considered but Not performed: MRI: no mri ab/pelvis. Historians other than the Patient: EMS: [facility]. Care significantly affected by the following chronic conditions: Hypertension, Obesity, Cancer, bladder ca, a fib. Care significantly affected by the following Social Determinants of Health: Poor access to transportation. Counseling: I had a detailed discussion with the patient and/or guardian regarding: the historical points, exam findings, and any diagnostic results supporting the discharge/admit diagnosis, lab results, radiology results, the need for further work-up and treatment in the hospital. 12/26 11:06 Order name: Basic Metabolic Panel; Complete Time: 12:42 [facility] 12/26 11:06 Order name: CBC with Diff; Complete Time: 12:42 [facility] 12/26 11:06 Order name: LFT's; Complete Time: 12:42 [facility] 12/26 11:06 Order name: Magnesium; Complete Time: 12:42 [facility] 12/26 11:06 Order name: NT PRO-BNP; Complete Time: 12:42 [facility] 12/26 11:06 Order name: PT-INR; Complete Time: 12:42 [facility] 12/26 11:06 Order name: Troponin HS; Complete Time: 12:42 [facility] 12/26 11:06 Order name: Lipase; Complete Time: 12:42 [facility] 12/26 11:06 Order name: Urinalysis w/ reflexes; Complete Time: 12:51 [facility] 12/26 13:09 Order name: Urine Culture [facility] 12/26 11:06 Order name: XRAY Chest (1 view); Complete Time: 12:42 [facility] 12/26 11:06 Order name: CT Chest, Abdomen, Pelvis - W/Contrast; Complete Time: 14:47 [facility] 12/26 11:06 Order name: EKG; Complete Time: 11:07 [facility] 12/26 13:47 Order name: CONS Physician Consult [facility] 12/26 11:06 Order name: Cardiac monitoring; Complete Time: 11:08 [facility] 12/26 11:06 Order name: EKG - Nurse/Tech; Complete Time: 11:31 [facility] 12/26 11:06 Order name: IV Saline Lock; Complete Time: 11:08 [facility] 12/26 11:06 Order name: Labs collected and sent; Complete Time: 11:17 [facility] 12/26 11:06 Order name: O2 Per Protocol; Complete Time: : [facility] 12/26 11:06 Order name: O2 Sat Monitoring; Complete Time: 11:08 [facility] 12/26 14:47 Order name: Harley; Complete Time: 14:55 lacho EC:59 Rate is 71 beats/min. Rhythm is irregularly irregular. QRS Hulbert is Normal. FL interval lacho is normal. QRS interval is normal. QT interval is normal. No Q waves. T waves are Normal. No ST changes noted. Clinical impression: Atrial Fibrillation and No evidence of ischemia. Interpreted by me. Reviewed by me. Administered Medications: 11:18 Drug: NS 0.9% IV 1000 ml Route: IV; Rate: 1 bolus; Site: right antecubital; ld1 11:18 Drug: Famotidine IVP 20 mg Route: IVP; Site: right antecubital; ld1 11:18 Drug: Ondansetron IVP 4 mg Route: IVP; Site: right antecubital; ld1 14:55 Drug: Piperacillin-Tazobactam IVPB 3.375 grams Route: IVPB; Infused Over: 60 mins; ld1 Site: right antecubital; 18:17 Not Given (Patient Refused): fentaNYL (PF) IVP 25 mcg IVP once ld1 18:17 Not Given (Patient Refused): fentaNYL (PF) IVP 25 mcg IVP once ld1 Disposition Summary: 12/26/22 13:48 Hospitalization Ordered Hospitalization Status: Inpatient Admission lacho Provider: Danny Schultz lacho Condition: Fair lacho Problem: new lacho Symptoms: have improved lacho Bed/Room Type: Standard lacho Location: Telemetry/MedSurg (Inpatient)(12/26/22 19:26) cg Room Assignment: 413(12/26/22 19:26) Diagnosis - Abdominal pain, Generalized lacho - Vomiting lacho - UTI/ Urinary tract infection, site not specified lacho - Hydronephrosis with ureteral stricture, not elsewhere classified lacho - Retention of urine, unspecified lacho Forms: - Medication Reconciliation Form lacho - SBAR form lacho Signatures: Dispatcher [employer] EDSudhakar Cornelius MD MD cha Garcia, Cindy, RN RN cg Elva Swan Lauren, RN RN ld1 Corrections: (The following items were deleted from the chart) : 13:48 Telemetry/MedSurg (Inpatient) [facility] 14: 13:48 [facility] 19: 14:04 [facility] : 14:[address] [facility]- cg
[2022-12-26] MEDS ORDERED: FENTANYL CITR 100 MCG/2 ML IV PRN (18:01)
[2022-12-26] MEDS ORDERED: ACETAMINOPHEN 325 MG TABLET PO PRN (18:01)
[2022-12-26] MEDS ORDERED: ONDANSETRON 4 MG/2 ML VIAL IV PRN (18:01)
--- NOTE | 2022-12-26 21:26 | P.HP ---
Certification for Inpatient Patient admitted to: Inpatient With expected LOS: >2 Midnights Practitioner: I am a practitioner with admitting privileges, knowledge of patient current condition, hospital course, and medical plan of care. Services: Services provided to patient in accordance with Admission requirements found in Title 42 Section 412.3 of the Code of Federal Regulations Patient History Date of Service: 12/26/22 Reason for admission: ABDOMEN PAIN History of Present Illness: TREVA HAS HAD RECENT UROTHELIAL CANCER AT THE END OF URETER AND BLADDER ON L SIDE. HE HAS A STENT ON THIS SIDE AND GETS BCG THERAPY. HE TODAY HAD SUDDEN DIFFUSE PAIN IN ABDOMEN. HE HAS L SIDE HYDRONEPHROSIS THAT IS MILD AND UTI ON UA. HE IS STARTED ON ZOSYN IV BY ER. HE IS STABLE BUT STAYS VERY ANGRY AND UPSET. HE REFUSES TO TAKE ANTIDEPRESSANT. Allergies delavirdine Allergy (Verified 11/11/22 10:49) Hallucinations hydrocodone Allergy (Verified 11/11/22 10:49) Bad Dreams hydromorphone [From Dilaudid] Allergy (Verified 11/11/22 10:49) Hallucinations tramadol Allergy (Verified 11/11/22 10:49) Hallucinations Home Medications: Carbidopa/Levodopa [Carbidopa-Levo ER 50-200 Tab] 1 tab PO DAILY 12/11/21 Gabapentin 100 mg PO SEECOM 03/24/22 Tamsulosin [Flomax*] 0.4 mg PO BEDTIME #90 cap 03/29/22 Cholecalciferol (Vitamin D3) [Vitamin D 5,000 IU Cap*] 5,000 unit PO DAILY #30 cap 05/25/22 Metoprolol Succinate 75 mg PO DAILY 06/22/22 Apixaban [Eliquis] 5 mg PO BID 07/27/22 Furosemide [Lasix] 20 mg PO DAILY 07/27/22 Tizanidine HCl [Zanaflex] 1 tab PO BEDTIME 10/27/22 Acetaminophen [Acetaminophen Extra Strength] 500 mg PO PRN PRN 11/11/22 Meclizine HCl 25 mg PO DAILYPRN PRN 11/11/22 Potassium Chloride [Klor-Con M10] 10 meq PO BIDWM 11/11/22 Carbidopa/Levodopa Er 50-200 1 tab PO DAILY #30 tab 11/25/22 Docusate [Colace Cap*] 200 mg PO DAILY PRN #30 cap 11/25/22 Docusate/Senna [Senokot-S*] 2 tab PO BEDTIME PRN #30 tab 11/25/22 Furosemide [Lasix*] 10 mg PO DAILY #14 tab 11/25/22 Gabapentin [Neurontin*] 100 mg PO TID #90 cap 11/25/22 Lidocaine 4% Patch [Lidoderm 5% Patch*] 2 patch TOP DAILY #30 pat 11/25/22 Meclizine HCl [Antivert*] 25 mg PO DAILY PRN #30 tab 11/25/22 Melatonin [Melatonin*] 3 mg PO BEDTIME PRN PRN #30 11/25/22 Metoprolol Succinate [Toprol Xl*] 75 mg PO DAILY #30 tab 11/25/22 - Past Medical/Surgical History Diabetic: No -: afib -: colon CA -: bladder CA-current -: prostate CA -: HTN -: arthritis -: POLYMYALGIA RHEUMATICA- STEROIDS -: Colon sx -: Hernia repair -: 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 moist/pink, EOMI, Sclerae nonicteric Neck: Supple, 2+ carotid pulse no bruit, No LAD, Without JVD or thyroid abnormality Respiratory: Clear to auscultation bilaterally, Normal air movement Cardiovascular: Regular rate/rhythm, Normal S1 S2 Gastrointestinal: Normal bowel sounds, No tenderness, Tenderness (DIFFUSE MILD) Musculoskeletal: No tenderness Integumentary: No rashes Neurological: Normal gait, Normal speech, Normal strength at 5/5 x4 extr, Normal tone, Normal affect Lymphatics: No axilla or inguinal lymphadenopathy - Studies Laboratory Data (last 24 hrs) 12/26/22 11:14: PT 10.1, INR 0.92 12/26/22 11:14: WBC 5.60, Hgb 13.3 L, Hct 41.3, Plt Count 174 12/26/22 11:14: Sodium 138, Potassium 4.0, BUN 25 H, Creatinine 1.28, Glucose 79, Magnesium 2.3, Total Bilirubin 0.5, AST 27, ALT 15 L, Alkaline Phosphatase 5 0, Lipase 33 Assessment and Plan - Problems (Diagnosis) (1) Pyelonephritis Current Visit: Yes Status: Acute Plan: IV ZOSYN WILL CHANGE TO CIPRO AT DE. DEPENDS ON HOW HE DOES. (2) Hydronephrosis, left Current Visit: No Status: Acute Plan: DR. MENDEZ IS AWARE. HE MAY BE ABLE TO SEE HIM IN AM. HE HAS A NEW STENT. 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 - Advance Directives Does patient have a Living Will: Yes Does patient have a Durable POA for Healthcare: Yes
[2022-12-26 21:39] VITALS: O2SAT 99
[2022-12-26] MEDS: FAMOTIDINE 20 MG/2 ML VIAL IV SCH (21:56)
[2022-12-26] MEDS: NA CHLORIDE 0.9% 1,000 ML IV SCH (21:57)
[2022-12-27 00:04] VITALS: BMI 32.8
[2022-12-27] MEDS: NA CHLORIDE 0.9% 1,000 ML IV SCH ×2 (02:01→10:41)
[2022-12-27 06:11] LABS: Absolute Lymphocytes (CBC) 0.6 K/uL (0.7-4.9); Hematocrit 44.7 % (39.6-49.0); Lymphocytes % 7.3 % (15.3-44.8); MCV 99.5 fL (80-100); MPV 8.2 fL (7.6-11.3); RBC Red Blood Cell Count 4.49 M/uL (4.33-5.43)
[2022-12-27] MEDS ORDERED: DOCUSATE NA 100 MG CAP PO PRN (06:36)
[2022-12-27] MEDS ORDERED: ACETAMINOPHEN 500 MG TAB PO PRN (06:36)
[2022-12-27] MEDS ORDERED: MELATONIN 3 MG TABLET PO PRN (06:36)
[2022-12-27] MEDS ORDERED: MECLIZINE HCL 12.5 MG TAB PO PRN (06:36)
[2022-12-27 06:42] LABS: Bilirubin Direct 0.3 mg/dL (0-0.2); Bilirubin Total 1.5 mg/dL (0.2-1.0); Potassium 4.3 mEq/L (3.5-5.1)
[2022-12-27] MEDS: CEFTRIAXONE 1,000 MG in NA CHLORIDE 0.9% 50 ML IVPB SCH (08:13)
[2022-12-27] MEDS ORDERED: LUTEIN 20 MG PO SCH (09:00)
[2022-12-27] MEDS: LIDOCAINE 4% PATCH TOP SCH (09:00)
[2022-12-27] MEDS ORDERED: HOME MED 1 EA UNK (Trospium Chloride [Sanctura] 20 MG Tablet) PO SCH (09:00)
[2022-12-27] MEDS ORDERED: POTASSIUM CHLORIDE 10 MEQ PO SCH (09:00)
[2022-12-27] MEDS ORDERED: CARBIDOPA PO SCH (09:00)
[2022-12-27] MEDS ORDERED: LEVODOPA PO SCH (09:00)
[2022-12-27] MEDS: lisinopriL 10 MG TAB PO SCH (09:23)
[2022-12-27] MEDS: METOPROLOL XL 25 MG TAB PO SCH (09:24)
[2022-12-27] MEDS: POTASSIUM CL SA 10 MEQ TAB PO SCH (09:24)
[2022-12-27] MEDS: VITAMIN D 5,000 UNIT CAP PO SCH (09:24)
[2022-12-27] MEDS: APIXABAN 5 MG TABLET PO SCH ×2 (09:24→20:20)
[2022-12-27] MEDS: GABAPENTIN 100 MG CAP PO SCH ×3 (09:24→20:20)
[2022-12-27] MEDS: FUROSEMIDE 20 MG TABLET PO SCH (09:24)
[2022-12-27] MEDS: FAMOTIDINE 20 MG/2 ML VIAL IV SCH ×2 (09:25→20:21)
--- NOTE | 2022-12-27 12:39 | EKG ---
Test Date: 2022-12-26 Test Time: 11:28:49 Personnel Arbitrator: RAJIV MEASUREMENT RESULTS: Intervals: Rate: 71 IL: QRSD: 118 QT: 420 QTc: 456 [place]: P: IL: QRS: 254 T: 30 INTERPRETIVE STATEMENTS: Atrial fibrillation Abnormal ECG Compared to ECG 05/13/2022 15:01:56 Left-axis deviation no longer present Myocardial infarct finding no longer present Electronically Signed On 12-27-22 12:37:18 CDT by Price Wu
--- NOTE | 2022-12-27 18:03 | P.PN ---
Subjective Date of Service: 12/27/22 Chief Complaint: ABDOMEN PAIN Subjective: Improving HE HAS IMPROVED. HE IS ANGRY USUAL. HE DEMANDS ZARAGOZA OUT STAT. YELLS AND SCREAMS EVERY FEW MINUTES UNTIL IT WAS DONE. WE DID POST VOID RESIDUAL AND HE SHOWED RETENTION. DR. TROY MENDEZ ASKD NURSES TO PUT ZARAGOZA BACK AND NOT LISTEN TO HIM FOR HIS OWN HEALTH. HE WILL GET MORE INFECTIONS IF HE RETAINS SO MUCH URINE. I AGREE. Physical Examination - Vital Signs Temperature: 97.9 F Blood Pressure: 135/60 Pulse: 84 Respirations: 16 Pulse Ox (%): 96 - Physical Exam General: Oriented x3, Mild distress, Moderate distress HEENT: Atraumatic, PERRLA, EOMI Neck: Supple, JVD not distended Respiratory: Clear to auscultation bilaterally, Normal air movement Cardiovascular: Regular rate/rhythm, Normal S1 S2 Gastrointestinal: Normal bowel sounds, No tenderness Musculoskeletal: No tenderness Integumentary: No rashes Neurological: Normal speech, Normal tone, Normal affect Lymphatics: No axilla or inguinal lymphadenopathy - Studies Medications List Reviewed: Yes Assessment And Plan - Current Problems (Diagnosis) (1) Pyelonephritis Current Visit: Yes Status: Acute Plan: IV ZOSYN WILL CHANGE TO CIPRO AT [place]. DEPENDS ON HOW HE DOES. (2) Hydronephrosis, left Current Visit: No Status: Acute Plan: DR. MENDEZ IS AWARE. HE MAY BE ABLE TO SEE HIM IN AM. HE HAS A NEW STENT. WE DID POST VOID RESIDUAL AND HE SHOWED RETENTION. DR. TROY MENDEZ ASKD NURSES TO PUT ZARAGOZA BACK AND NOT LISTEN TO HIM FOR HIS OWN HEALTH. HE WILL GET MORE INFECTIONS IF HE RETAINS SO MUCH URINE. I AGREE. 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
[2022-12-27] MEDS: HOME MED 1 EA UNK (Trospium Chloride [Sanctura] 20 MG Tablet) PO SCH (20:21)
[2022-12-28] MEDS: HOME MED 1 EA UNK (Trospium Chloride [Sanctura] 20 MG Tablet) PO SCH (08:14)
[2022-12-28] MEDS: METOPROLOL XL 25 MG TAB PO SCH (08:16)
[2022-12-28] MEDS: FUROSEMIDE 20 MG TABLET PO SCH (08:16)
[2022-12-28] MEDS: FAMOTIDINE 20 MG/2 ML VIAL IV SCH (08:16)
[2022-12-28] MEDS: POTASSIUM CL SA 10 MEQ TAB PO SCH (08:17)
[2022-12-28] MEDS: APIXABAN 5 MG TABLET PO SCH (08:17)
[2022-12-28] MEDS: VITAMIN D 5,000 UNIT CAP PO SCH (08:17)
[2022-12-28] MEDS: lisinopriL 10 MG TAB PO SCH (08:17)
[2022-12-28] MEDS: GABAPENTIN 100 MG CAP PO SCH (08:17)
[2022-12-28] MEDS: LIDOCAINE 4% PATCH TOP SCH (08:18)
[2022-12-28] MEDS: CEFTRIAXONE 1,000 MG in NA CHLORIDE 0.9% 50 ML IVPB SCH (08:18)
[2022-12-28 08:30] VITALS: BP 128/61; TEMP 98.6
[2022-12-28] MEDS ORDERED: CARBIDOPA PO SCH (09:00)
[2022-12-28] MEDS ORDERED: LEVODOPA PO SCH (09:00)
[2022-12-28] MEDS ORDERED: LUTEIN 20 MG PO SCH (09:00)
--- NOTE | 2023-01-02 21:06 | P.DS ---
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 HE HAS A STENT ON THIS SIDE AND GETS BCG THERAPY. HE TODAY HAD SUDDEN DIFFUSE PAIN IN ABDOMEN. HE HAS L SIDE HYDRONEPHROSIS THAT IS MILD AND UTI ON UA. HE IS STARTED ON ZOSYN IV BY ER. HE IS STABLE BUT STAYS VERY ANGRY AND UPSET. HE REFUSES TO TAKE ANTIDEPRESSANT. Hospital Course: TREVA HAS RETENTION OF URINE FROM URETEROVESICULAR CANCER AND STRICTURE. HE HAS STENT IN PLACE. HE IS HAVING RETENTION OF URINE FROM BPH AND REFUSED TO LEAVE CATHETER IN. NOW WITH MUCH EXPLANATION HE WAS ABLE TO GO HOME WITH ZARAGOZA. DR. MENDEZ WILL CONTINUE BCG THERAPY FOR CANCER THAT IS ADVANCED. IN HIS OPINION MR. REBOLLEDO IS NOT A SURGICAL CANDIDATE BECAUSE OF EXTENSIVE NATURE OF SURGERY THAT WILL BE NEEDED. AND PATIENT ARE AWARE. Vital Signs/Physical Exam: Temp Pulse Resp BP Pulse Ox 98.6 F 92 H 16 128/61 95 12/28/22 08:00 12/28/22 08:00 12/28/22 08:00 12/28/22 08:00 12/28/22 08:00 Laboratory Data at Discharge: WBC 7.70 thou/uL (4.3-10.9) 12/27/22 05:29 Hgb 14.6 g/dL (13.6-17.9) D 12/27/22 05:29 Hct 44.7 % (39.6-49.0) 12/27/22 05:29 Plt Count 167 thou/uL (152-406) 12/27/22 05:29 PT 10.1 SECONDS (9.5-12.5) 12/26/22 11:14 INR 0.92 12/26/22 11:14 Sodium 140 mEq/L (136-145) 12/27/22 05:29 Potassium 4.3 mEq/L (3.5-5.1) 12/27/22 05:29 BUN 23 mg/dL (7-18) H 12/27/22 05:29 Creatinine 1.19 mg/dL (0.70-1.30) 12/27/22 05:29 Glucose 91 mg/dL (74-106) 12/27/22 05:29 Magnesium 2.3 mg/dL (1.6-2.4) 12/26/22 11:14 Total Bilirubin 1.5 mg/dL (0.2-1.0) H 12/27/22 05:29 AST 27 U/L (15-37) 12/27/22 05:29 ALT 25 U/L (16-61) 12/27/22 05:29 Alkaline Phosphatase 51 U/L (45-117) 12/27/22 05:29 Lipase 21 U/L (13-75) 12/27/22 05:29 Home Medications: Carbidopa/Levodopa [Carbidopa-Levo ER 50-200 Tab] 1 tab PO DAILY 12/11/21 Cholecalciferol (Vitamin D3) [Vitamin D 5,000 IU Cap*] 5,000 unit PO DAILY #30 cap 05/25/22 Apixaban [Eliquis] 5 mg PO BID 07/27/22 Furosemide [Lasix] 20 mg PO DAILY 07/27/22 Gabapentin [Neurontin*] 100 mg PO TID #90 cap 11/25/22 Lisinopril [Zestril] 1 tab PO DAILY 12/26/22 Lutein 1 tab PO DAILY 12/26/22 Ciprofloxacin HCl [Cipro 500 MG Tablet] 500 mg PO BID #20 tab 12/28/22 Metoprolol Succinate [Toprol Xl*] 75 mg PO DAILY 12/31/22 Potassium Oral Tab [Klor-Con 10 mEq Tab*] 1 tab PO DAILY 12/31/22 Trospium Chloride [Sanctura] 20 mg PO BID 12/31/22 New Medications: Ciprofloxacin HCl [Cipro 500 MG Tablet] 500 mg PO BID #20 tab Followup: Danny Schultz MD [Primary Care Provider] -
== END 2022-12-28 12:00 | disposition home health service (06) | DRG 690 ==
LOC: ER 10:55 → ERHOLD 13:42 → 4TH 19:32
PROVIDERS: ADMIT Internal Medicine; ATTEND Internal Medicine
DX: N10 Acute pyelonephritis (principal); C66.2 Malignant neoplasm of left ureter; I10 Essential (primary) hypertension; I48.91 Unspecified atrial fibrillation; M19.90 Unspecified osteoarthritis, unspecified site; N40.1 Benign prostatic hyperplasia with lower urinary tract symptoms; R33.8 Other retention of urine; Z94.7 Corneal transplant status; Z88.5 Allergy status to narcotic agent; Z85.46 Personal history of malignant neoplasm of prostate; Z85.51 Personal history of malignant neoplasm of bladder; Z79.01 Long term (current) use of anticoagulants; Z79.899 Other long term (current) drug therapy; Z85.038 Personal history of other malignant neoplasm of large intestine
CPT/HCPCS: 36415; 51702; 71045; 71260; 74177; 80048; 80076; 81001; 83690; 83735; 83880; 84484; 85025; 85610; 87086; 87088; 93005; 96374; 96375; 99285; J0696; J2001; J2405; J2543; J3010; J7030; Q9967

== ENCOUNTER 2023-02-22 06:35 | Day surgery (SDC) | payer OTHER ==
[2023-02-22] MEDS ORDERED: oxyBUTYnin chloride 5 MG TAB ONE (06:57)
[2023-02-22] MEDS ORDERED: DIAZEPAM 5 MG TABLET ONE (06:59)
[2023-02-22] MEDS ORDERED: DOCEtaxeL 37.5 MG in NA CHLORIDE 0.9% 48.125 ML IS ONE (07:00)
[2023-02-22] MEDS ORDERED: GEMCITABINE HCL 26.3 ML IS ONE (07:00)
[2023-02-22] MEDS ORDERED: LIDOCAINE JELLY 2% 5 ML SYRINGE TOP ONE (07:35)
[2023-02-22 07:59] VITALS: BP 113/61; TEMP 99; O2SAT 99; BMI 30.2
--- NOTE | 2023-02-22 16:52 | P.OP ---
Date of Service: 02/22/23 82-year-old gentleman with history of left ureteral reimplantation following bowel resection procedure with stenosis of the reimplanted ureteral orifice and suspected papillary urothelial neoplasm in the distal ureter associated with high-grade noninvasive urothelial carcinoma of the bladder, initially treated with intravesical gemcitabine induction course without recurrence of the papillary urothelial neoplasm but with development of CIS, subsequently treated with intravesical BCG induction course, with recurrent noninvasive papillary urothelial carcinoma within 3 to 6 months following induction BCG. In the interim, he has had issues with recurrent urinary retention requiring catheter placement; so I recommended salvage therapy with gemcitabine docetaxel sequential chemotherapy. He presents today for induction course #6 of 6 instillations. Of note, his noted he had 1-2 days of nausea since the last administration. I cautioned to take the Macrobid with food to minimize this risk, but some patients may indeed experience some nausea associated with the intravesical chemotherapy. Principle Procedures: 1. Sequential Intravesical Gemcitabine 1g in 25cc NS 2. Followed by Intravesical Docetaxel 37.5cc in 50cc NS 3. Insertion of Urethral Harley Catheter Findings and Operative Technique He was provided a dose of oxybutynin 10 mg and Valium 5 mg orally prior to the procedure. He just completed a course of antimicrobial therapy before arriving today. He was supine on the day surgery bed, and the indwelling Harley catheter was cleansed around the meatus and then the hub of the catheter was cleansed using ChloraPrep. His genitalia was draped with absorbent towels, and the catheter was brought through a hiatus made in a fluid impermeable three-quarter sheet which was used to cover his body. Gemcitabine 1 g and 25 cc normal saline was retrograde instilled via the catheter into his bladder with ease. He tolerated this well and with no increased sensation. The gemcitabine was allowed to remain in situ for 90 minutes before it was evacuated into an assoc iated leg bag. I then instilled docetaxel 37.5 mg in 50 cc normal saline into his bladder, and this was allowed to remain in situ for 120 minutes. It was subsequently evacuated into an attached leg bag. He tolerated the instillation well and without complication. The indwelling urethral Harley catheter was removed, and a new 18 Malay coud catheter was passed into his bladder with ease. He was discharged from the day surgery procedure area in good condition. Discharge disposition: -f/u for cystoscopy in 2-3 weeks -obtain IVP (intravenous pyelogram) via radioloigy prior to cystoscopy - to assess for upper tract filling defect (note:reimplanted left ureter with ureteral stent in place)
== END 2023-02-22 13:35 | disposition home or self-care (01) ==
LOC: DS 06:35
PROVIDERS: ATTEND Urology
PROC: 3E0K705 Introduction of Other Antineoplastic into Genitourinary Tract, Via Natural or Artificial Opening (ICD-10-PCS; principal; 2023-02-22)
DX: C66.9 Malignant neoplasm of unspecified ureter (principal); C66.2 Malignant neoplasm of left ureter; C67.9 Malignant neoplasm of bladder, unspecified
CPT/HCPCS: 96365 ×2; 96366 ×2; 51720; J9171; J9201

== ENCOUNTER 2023-05-10 10:01 | Day surgery (SDC) | payer OTHER ==
[2023-04-25 11:37] LABS: Absolute Lymphocytes (CBC) 1.1 K/uL (0.7-4.9); Hematocrit 42.6 % (39.6-49.0); Lymphocytes % 18.8 % (15.3-44.8); MCV 102.2 fL (80-100); MPV 8.2 fL (7.6-11.3); Platelets 187 thou/uL (152-406); RBC Red Blood Cell Count 4.17 M/uL (4.33-5.43)
[2023-04-25 11:44] LABS: Protime INR 1.08
[2023-04-25 11:51] LABS: Potassium 4.3 mEq/L (3.5-5.1)
[~2023-05-10 10:01] MED LIST changes: -AMPICILLIN SODIUM 2 GM in NA CHLORIDE 0.9% 100 ML IVPB ONE; -Gentamicin Inj 160 MG in NA CHLORIDE 0.9% 100 ML IV SCH; +Gentamicin Inj 200 MG in NA CHLORIDE 0.9% 100 ML IV SCH
[2023-05-10] MEDS ORDERED: Ringers Lactate 1,000 ML IV ONE (10:56)
[2023-05-10] MEDS: AMPICILLIN SODIUM 2 GM/VIAL VIAL ONE ×2 (12:11→12:20)
[2023-05-10] MEDS ORDERED: propofoL 200 MG/20 ML VIAL IV ONE (12:12)
[2023-05-10] MEDS ORDERED: LIDOCAINE 1% MPF 5 ML VIAL ONE (12:13)
[2023-05-10] MEDS ORDERED: FENTANYL CITR 100 MCG/2 ML ONE (12:14)
[2023-05-10] MEDS ORDERED: ESMOLOL HCL 10 ML IV ONE (12:36)
[2023-05-10] MEDS ORDERED: METOPROLOL TARTRATE 5 MG/5 ML INJ IV ONE (12:38)
[2023-05-10] MEDS ORDERED: NA CHLORIDE 0.9% 100 ML ONE (12:44)
[2023-05-10] MEDS ORDERED: LABETALOL 20 MG/4ML SYRINGE IV ONE (12:46)
[2023-05-10] MEDS ORDERED: ROCURONIUM 50 MG/5 ML VIAL IV ONE (13:17)
[2023-05-10] MEDS ORDERED: dexAMETHasone 10 MG/ML VIAL ONE (13:18)
[2023-05-10] MEDS ORDERED: GLYCOPYRROLATE 0.2 MG/ML SYR ONE (13:52)
[2023-05-10 14:02] VITALS: O2SAT 100
[2023-05-10] MEDS ORDERED: HYDROCODONE/APAP 5/325 MG TAB PO PRN (14:31)
[2023-05-10] MEDS ORDERED: PHENAZOPYRIDINE 100MG TAB PO ONE ×2 (14:31→15:17)
--- NOTE | 2023-05-10 14:49 | RAD REPORT ---
EXAM DESCRIPTION: RAD - Urethrocystogrphy Retrograde - 05/10/2023 2:25 pm CLINICAL HISTORY: LT RETROGRADE PYELO COMPARISON: Urethrocystogrphy Retrograde dated 11/01/2022 FINDINGS: Total fluoro time: 0.7 minutes.
[2023-05-10] MEDS ORDERED: HYDROCODONE/APAP 5/325 MG TAB ONE (15:17)
[2023-05-10 16:55] VITALS: BP 126/63; TEMP 96.8
--- NOTE | 2023-05-10 23:31 | OP ---
Surgeon: MILAD MENDEZ Preoperative Diagnoses: 1.Left ureteral reimplantation. 2.Left ureteral orifice stenosis/stricture disease. 3.BPH with lower urinary tract obstruction and symptoms. 4.Incomplete bladder emptying. 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 Postoperative Diagnoses: 1.Left ureteral reimplantation. 2.Left ureteral orifice stenosis/stricture disease. 3.BPH with lower urinary tract obstruction and symptoms. 4.Incomplete bladder emptying. 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 Principal Procedures: 1.Cystoscopy. 2.Complex left retrograde pyelography. 3.Complex left ureteral stent exchange. 4.Bipolar transurethral resection of the prostate. Indication For Procedure: Mr. Peralta presented via the [facility]rology [facility] with a history of left urete ral reimplantation following an apparent ureteral injury during a partial colectomy done for colon ca ncer many years ago. He had subsequent development of hydronephrosis with some pain and the finding of dense ureteral stricture disease involving the reimplanted ureteral orifice and stenosis. He unde rwent initial evaluation revealing a papillary urothelial lesion that was suspicious for upper tract urothelial carcinoma. 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 He subsequently underwent resection and evaluation of his left upper tract in a very limited fashion due to the extr audrey difficulty dealing with the reimplanted ureter. He was treated with postoperative induction cour se of intravesical gemcitabine, but had recurrence of CIS. He subsequently was treated with an induc tion course of BCG, but on followup cystoscopic evaluation had recurrence of papillary urothelial les ions. As a result, he was then treated with an induction course of sequential gemcitabine, docetaxel chemotherapy. Subsequent followup cystoscopy was negative for bladder recurrence and restaging of t he left upper tract was necessary because upper tract imaging with either CT urography or IVP was uns uccessful given the very minimal function of that left side. Also, given the ureteral orifice stenos is of the reimplanted ureter on the left, he required stent exchange to keep that patent relative to the function present left within that kidney. Procedure In Detail: The patient was consented in the preoperative holding area before being transfe rred to the operative suite. Of note, he complained of persistent splaying of the urinary stream and has had multiple issues with need for catheterization due to episodes of retention and large volume incomplete emptying. He was then transferred to the operative suite where general anesthesia was ind uced. He was given ampicillin and gentamicin IV antimicrobial prophylaxis and pneumo boots were prov ided for DVT prophylaxis. He was placed in the lithotomy position, padded, and secured to the table appropriately. His genitalia were prepped with Hibiclens and he was draped in standard fashion. The case was begun using a 22-Slovenian rigid cystoscope to traverse the urethra and enter his bladder. Th e bladder was decompressed of fluid and urine, and surveyed in its entirety. There were no papillary mucosal lesions, foreign bodies, or stones noted throughout. The right ureteral orifice was orthoto pic in location, and the efflux of urine from it was clear. The left ureteral orifice was reimplante d in the posterior dome on the left, and there was a stent emanating from it. As previously noted, t here was significant interdigitating lateral lobar hypertrophy residual from prior prostatic urethral biopsies and resection of the median bar done on a prior transurethral evaluation. I thus used an a lligator grasper to grasp the tip of the stent and delivered the tip of the stent to the meatus leavi ng the proximal coil hopefully within the distal ureter. I then passed a Sensor wire via the stent a nd was able to navigate it into what appeared to be only a portion of the distal reimplanted ureter. As a result, because the wire would not navigate successfully into the renal pelvis and collecting s ystem, I then backloaded the cystoscope over the wire using a 5-Slovenian ureteral access catheter and u nder direct vision with great difficulty and multiple attempts, I was able to navigate the tip of the Sensor wire and a 5-Slovenian ureteral access catheter beyond a point of obstruction in the distal port ion of the ureter and successfully into the collecting system. Of note, a retrograde pyelogram was p erformed once the 5-Slovenian was initially inserted into the distal ureter over the Sensor wire where t he Sensor wire would no longer go past the distal ureter. Contrast injection at that point revealed a dilated component of the distal ureter with minimal contrast going beyond it toward the renal pelvi s. After navigating the Sensor wire more in the correct position and successfully being able to plac e all the way into the putative renal pelvis, I was then able to navigate a 5-Slovenian ureteral access catheter alongside the Sensor wire into the distal ureter and performed a second retrograde pyelogram . Left retrograde pyelography reimplanted ureter: Using full-strength contrast, I injected the contrast via the 5-Slovenian ureteral access catheter and i t did fill an irregularly delineated distal ureteral lumen before there was a skip area of the mid ur eter before the contrast did fill the mid proximal ureter and the renal pelvis and calices without si gnificant evidence of filling defect. There was evidence of moderate pelvocaliectasis, however, note d. As a result, I passed a 6-Slovenian x 28 cm double-J ureteral stent over the indwelling Sensor wire and coiled it in the renal pelvis as visible fluoroscopically. An additional coil was observed cysto scopically within his bladder. Further attempts to gain access again into the ureteral orifice reimp lanted and perform a better quality retrograde study were unfruitful given the difficulty accessing t he orifice. As a result, after a few different attempts, I discontinued further efforts at the retro grade pyelography beyond that performed above, and I removed the cystoscope. I then dilated his meatus and fossa navicularis to 30-Slovenian using urethral sounds before navigating a 26-Slovenian bipolar resectoscope and a visual obturator via his urethra and into his bladder. I then utilized a bipolar thick loop and began resecting the interdigitating lateral lobar hypertrophy of e ach lobe bilaterally sparing the anterior tissue, which was not significantly overhanging, and extend ing to the verumontanum. This was done until no tissue was kissing and overlapping in the midline an d then I Charisik evacuated all prostate chips out and with the bladder decompressed, re-assessed. With evidence of tissue kissing with the bladder decompressed, I again continued resection of that tissue to ensure a continuous channel had been created from the verumontanum into the bladder without any o verlap as the bladder was completely decompressed. Once a clean channel had been created, I then ful gurated any and all bleeding vessels taking care to avoid extensive fulguration at the bladder neck t o avoid a bladder neck contracture. I then ensured all prostate chips were removed from his bladder before back filling the bladder with saline and removing the resectoscope. I then passed a 22-Slovenian 3-way Harley catheter via his urethra into his bladder with ease and placed 30 cc of sterile water in the balloon. The catheter was connected to slow drip saline CBI, and the patient was taken out of t he lithotomy position. He was then awakened from general anesthesia, transferred to a stretcher, and then transferred to the recovery room in good condition. Complications: None. Discharge Disposition: He may follow up in the Urology Clinic on Tuesday for catheter removal and voi ding trial. We otherwise will need follow up to discuss the persistent inability to evaluate adequat cyn the left renal collecting system and ureter. As a result, I recommend a MAG3 Lasix renogram be a rranged to re-assess the function of that left kidney in preparation for likely left nephroureterecto my, if the kidney has minimal function given its risk of harboring ongoing urothelial carcinoma that is as yet under diagnosed. Also, prior to removal of the Harley catheter on Tuesday, a sample of the u rine may be sent for cytology/FISH in an effort to assess the upper tract for disease not seen within the bladder or prostate. JULIANNA/MODL Voice ID: [id number] Report ID: [id number]
== END 2023-05-10 16:50 | disposition home or self-care (01) ==
LOC: OR 10:01
PROVIDERS: ATTEND Urology
PROC: 0T778DZ Dilation of Left Ureter with Intraluminal Device, Via Natural or Artificial Opening Endoscopic (ICD-10-PCS; 2023-05-10)
PROC: 0VT08ZZ Resection of Prostate, Via Natural or Artificial Opening Endoscopic (ICD-10-PCS; principal; 2023-05-10 11:45)
DX: N40.1 Benign prostatic hyperplasia with lower urinary tract symptoms (principal); C67.9 Malignant neoplasm of bladder, unspecified; D09.0 Carcinoma in situ of bladder; C66.2 Malignant neoplasm of left ureter; R31.0 Gross hematuria; R33.9 Retention of urine, unspecified; N13.5 Crossing vessel and stricture of ureter without hydronephrosis
CPT/HCPCS: 52601; 52332; 52005; 51610 ×2; 87088; 85025; 87086; 80048; 36415; 85610; 88305; 85730; 74450; J2704; J2001; J1580; J3010; J1100; J0290; J7120

== ENCOUNTER 2023-05-26 20:59 | Inpatient (IN) | payer OTHER ==
--- OUTSIDE RECORDS SUMMARY | 2023-05-26 21:12 | XMS REPORT | Continuity of Care Document ---
:1940 Author Organization [facility] t Address [address] [place] [address] Care Team Providers Name Role Phone SHARPLESS Primary Care Physician Unavailable Danny Schultz Attending Clinician Unavailable EMMA LAZARO Attending Clinician Unavailable JORDON MARTI Attending Clinician Unavailable Jordon Marti MD Attending Clinician MONA ARCE Attending Clinician Unavailable Mona Arce MD Attending Clinician Dewayne Britton MD Attending Clinician SANA GUSMAN Attending Clinician Unavailable Fuad Blackburn Attending Clinician Sana Gusman MD Attending Clinician MILAD MENDEZ Attending Clinician Unavailable Milad Mendez MD Attending Clinician Virtual, Surgeon Attending Clinician Unavailable Diana Lake Attending Clinician Unavailable Jazzy Anderson Attending Clinician ANDREW WALTERS Attending Clinician Unavailable Javier WHEELER, Geni Perea Attending Clinician Lisa WHEELER, Fidel Kaur Attending Clinician [phone] Rashaad WHEELER, Andrew Mayers Attending Clinician Jason Staley MD Attending Clinician Zach Gould Attending Clinician BREANNA MEANS Attending Clinician Unavailable Saul Weinberg PTA Attending Clinician Unavailable Breanna Means MD Attending Clinician Lorri Weinberg PTA Attending Clinician Unavailable Alannah PT, Elena Stringer Attending Clinician Unavailable Doctor Unassigned, [place] Attending Clinician Unavailable Nurse, Adc Pob Immunization [...] Unavailable ASTRID JENKINS Attending Clinician Unavailable 2, Adc Lab Attending Clinician Unavailable BRENDAN HALL Attending Clinician Unavailable Amie Figueredo RN Attending Clinician Unavailable Aubrey WHEELER, Chris Attending Clinician CHRIS BURGOS Attending Clinician Unavailable Julisa WHEELER, Sendil K.H. Attending Clinician Mariana Edwards Attending Clinician MARIANA VENCES Attending Clinician Unavailable Diana WHEELER, Jelly Kraft Attending Clinician JULISA SENDIL K.H. Attending Clinician Unavailable Martha Levy RN Attending Clinician Unavailable Yenifer Lowe RN Attending Clinician Yuliana Naidu Attending Clinician Efe Pugh MD Attending Clinician DENNY KRISHNAN Attending Clinician Unavailable DIMA REA Attending Clinician Unavailable EMMA LAZARO Admitting Clinician Unavailable MONA ARCE Admitting Clinician Unavailable MILAD MENDEZ Admitting Clinician Unavailable FIDEL GONZALEZ Admitting Clinician Unavailable Zach Gould Admitting Clinician CHRIS BURGOS Admitting Clinician Unavailable JASON STALEY Admitting Clinician Unavailable Efe Pugh MD Admitting Clinician Payers Payer Name Policy Type Policy Number Effective Date Expiration Date Ally cm MEDICARE A B [id number] 2005 00:00:00 GENERIC MEDICARE [id number] 2015 SUPPLEMENT 00:00:00 MEDICARE PART A \\T\\ [id number] 2005 B 00:00:00 COMMERCIAL [id number] 2010 NON-CONTRACT 00:00:00 GENERIC Problems Condition Condition Condition Status Onset Resolution Last Treating Co mments Source Name Details Category Date Date Treatment Clinician Date 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 [place] CHARY (acute CHARY (acute Disease Recurre [facility] kidney kidney nce 4-26 [facility] injury) injury) 00:00: Medical 00 [place] Atrial Atrial Disease Recurre [facility] fibrillati fibrillati nce 4-26 Tracy kes on on 00:00: Medical 00 [place] Benign Benign Disease Active [facility]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 4-26 [facility] HTN HTN 00:00: Medical 00 Center Hydronephr Hydronephr Disease Active [facility] osis osis 01-03 [facility] 00:[facility]: Medical 00 [place] SEVERE SEVERE Diagnosis Active 2021-12-22 Me moria HYDRONEPHR HYDRONEPHR 12-12 21:45:00 l OSIS OSIS 00:00: Fredo Active 00 12/12/2021 [facility] [place] HYDRONEHRO HYDRONEHR Diagnosis Active 2021-12-12 David SIS OSIS 4-02 15:22:00 l Active 00:00: Fredo 12/12/2021 00 [facility] [place] Joint pain Joint pain Disease Active 2021-0 U nivers 3-10 ity of 00:00: [place] [facility] Abnormal Abnormal Disease Active 0 Unive rs gait gait 3-10 ity of 00:00: [place] [facility] Muscle Muscle Disease Active 2021-0 Univers weakness weakness 3-10 ity of 00:00: [place] 00 Medical Branch Nonrheumat Nonrheumat Disease Active 2020-0 U nivers ic aortic ic aortic 5-11 ity of valve valve 00:00: [place] insufficie insufficie 00 Me dical ncy ncy Branch PAF PAF Disease Active 2019-0 Univers (paroxysma (paroxysma 5-11 it y of l atrial l atrial 00:00: [place] fibrillati fibrillati 00 Me dical on) on) Branch 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 00:00: [place] 00 Medical Branch Essential Essential Disease Active 2020-0 Uni vers hypertensi hypertensi 2-01 it y of on on 00:00: [place] 00 Medical Branch 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 00:00: [place] 00 Medical Branch Dizzy Dizzy Disease Active 2020-0 Univers spells spells 2-01 ity of 00:00: [place] 00 Medical Branch 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, sinus a, sinus 2-01 ity of 00:00: [place] 00 Medical Branch Atypical Atypical Disease Active 2020-0 Unive rs chest pain chest pain 1-30 it y of 00:00: [place] 00 Medical Branch 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 a 1-23 ity of 00:00: [place] 00 Medical Branch Meningioma Meningioma Disease Recurre 2015-[address] [facility] [address] nce 2-15 [facility] 00:00: Medical 00 [place] Brain Brain Disease Recurre 2015-[address] tumor tumor nce 2-15 [facility] 00:[facility]: Medical 00 Center Focal Focal Disease Recurre 2015-[address] [facility] seizure seizure nce 2-06 [facility] 00:[facility]: Medical 00 Center Seizure Seizure Disease Recurre 2015-[address] nce 2-06 [facility] 00:[facility]: Medical 00 Center Colon Colon Disease Recurre 2015-[address] [facility] [address] cancer cancer nce 10-18 [facility] 00:00: Medical 00 Center 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 - [facility] distal [facility] [id number] 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 [facility] 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 Spir it [facility] [id number] Deep left Problem Co mmon [id number] inguinal Spirit pain [facility] [id number] Hip pain, Problem Comm on left [facility] [id number] Other Problem Common retention [facility] of urine [facility] [id number] 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 [facility] [id number] Pain of Problem Commo n left femur [facility] [id number] Status Problem Common post [facility] ureteral - [facility] reimplanta tiRancho [facility] [id number] Epididymit Problem Com mon is, left [facility] [id number] Ureteral Problem Commo n stricture, [facility] left [facility] [id number] Bladder Problem Commo n tumor [facility] [id number] Ureter, Problem Common ectopic [facility] [id number] Other Problem Common postproced [facility] ural [facility] complicati [facility] Medical [facility] genitourin asif system [id number] OAB Problem Common (overactiv Spirit e bladder) [facility] [id number] Pain, Problem Commo n [id number] joint, Spirit shoulder, [facility] left [facility] Malignant Malignant Problem Com mon tumor of neoplasm Spirit ureter of [facility] unspecifie [facility] Bladder Bladder Problem Common cancer cancer [facility] Muscle Muscle Problem Active 2022-01-14 Sergei kristina strain strain 23:33:48 l (disorder) (disorder) He rmann Active Problem 01/14/2022 Medical Group [place] of [place] of Problem Active 2022-01-14 Me moria urinary urinary 23:33:48 l bladder bladder [place] (finding) (finding) Active Problem 01/14/2022 Medical Group Allergies, Adverse Reactions, Alerts Allergy Allergy Status Severity Reaction(s) Onset Inactive Treating Comm ents Source Name Type Date Date Clinician HYDROMOR DRUG Active Hallucinates Un pili PHONE INGREDI 05-03 ity of 00:00: [address] Hydromor Propensi Active hallucina [facility] phone ty to 05-03 tions [facility] adverse 00:00: Medical reaction [address] [place] [address] HYDROMOR Allergy Active [facility] PHONE 05-03 [facility] 00:[facility]: Medical 00 Center NO KNOWN Drug Active Univers ALLERGIE Class ity of [facility] delavird delavird Active Unknown Commo n ine ine [facility] hydromor hydromor Active Unknown Commo n phone phone [facility] - [facility] NO KNOWN Allergy Active [facility] ALLERGIE S Social History Social Habit Start Date Stop Date Quantity Comments Source Gender [facility] Sexual orientation [facility] History SD[facility] Places Medical Ce nter Lived History of Tobacco Common Spirit - Use [facility] Exposure to 2022-05-22 2022-06-01 Not sure University of SARS-CoV-2 (event) 00:00:00 18:44:00 [facility] Alcohol intake 2022-05-03 2022-05-03 [facility]00 of [facility] (finding) History [facility] 2022-01-04 2022-01-[address] [facility] Housing Homeless 00:00:00 00:00:00 Medical Center Last Year History [facility] 2022-01-04 2022-01-[address] [facility] Unable to 00:00:00 00:00:00 Medical Center Pay Tobacco use and 2022-01-03 2022-01-03 Smokeless [address] [facility] exposure 00:00:00 00:00:00 non-user Medical Center History of Social 2021-07-08 2021-07-[address] function 00:00:00 00:00:00 Hospital Alcohol Comment 2021-07-07 2021-07-07 wine [facility] 00:00:00 00:00:00 Hospital Tobacco Comment 2016-08-25 2016-08-25 smokes pipe x6 [facility]00 yrs; previously Medical C enter educated Sex Assigned At [birth year] [facility] 00:00:00 00:00:00 Hospital Smoking Status Start Date Stop Date Source Former Smoker 2022-10-13 00:00:00 2022-10-13 Common Sp[facility] t [facility] 00:[facility]:00 [facility] Medical Ce nter Social History 2021-12-12 22:47:18 [facility] Occasional tobacco smoker 2021-07-07 00:00:00 [facility] Medications Ordered Filled Start Stop Current Ordering Indication Dosage Frequency Signature Comments Components Source Medication Medication Date Date Medication? Clinician (SIG) Name Name cephALEXin 0 2022- No 500mg 500 mg, Un pili (KEFLEX) 03-21 07 Oral, ity of capsule 500 04:45: 04:50 [place] :[place] dose, On Medical 03/20/23 Branch at 2345, MILADYS
Re ason for Anti-Infec tive: Documented Infection< br>Documen wendy Infection Site: Urine
D uration of Therapy: Other (see Comments) cephALEXin 2022-0 Yes [id number] 500mg Take 1 Univers (KEFLEX) 03-20 capsule by ity o f 500 mg 00:00: mouth in [place] capsule 00 the morning Branch and 1 capsule at noon and 1 capsule in the evening. cephALEXin 2022-0 Yes [id number] 500mg Take 1 Univers (KEFLEX) 03-20 capsule by ity o f 500 mg 00:00: mouth in [place] capsule the Branch and 1 capsule at noon and 1 capsule in the evening. BCG BCG 2022-0 No 50mg Common 2- Spirit 00:00: - CHI 00 [facility] BCG BCG 2022-0 No 50mg Common 2- Spirit 00:00: - CHI 00 [facility] Amoxicillin Amoxicillin 2022-0 2022- No 1{table BID Amoxicilli -Pot -Pot -15 t} n-Pot Clavulanate Clavulanate 00:00: 00:00 Clavulanat 875-125 MG 875-125 MG 00 :00 e 875-125 MG Amoxicillin Amoxicillin 2022-0 2022- No 1{table BID Amoxicilli -Pot -Pot 2-09 13-15 t} n-Pot Clavulanate Clavulanate 00:00: 00:00 Clavulanat 875-125 MG 875-125 MG 00 :00 e 875-125 MG BCG BCG 2022-0 No 50mg Common -25 Spirit 00:00: - CHI 00 [facility] BCG BCG 2022-0 No 50mg Common - Spirit 00:00: - CHI 00 [facility] BCG BCG 2022-0 No 50mg Common -25 Spirit 00:00: - CHI 00 [facility] BCG BCG 2023-0 No 50mg Common - Spirit 00:00: - CHI 00 [facility] BCG BCG 2023-0 No 50mg Common - Spirit 00:00: - CHI 00 [facility] BCG BCG 2023-0 No 50mg Common - Spirit 00:00: - CHI 00 [facility] BCG BCG 2023-0 No 50mg Common - Spirit 00:00: - CHI 00 [facility] Amoxicillin Amoxicillin 2023-0 2023- No 1{table BID Amoxicilli -Pot -Pot 09-19-15 t} n-Pot Clavulanate Clavulanate 00:00: 00:00 Clavulanat 875-125 MG 875-125 MG 00 :00 e 875-125 MG BCG BCG 2023-0 No 50mg Common - Spirit 00:00: - CHI 00 [facility] BCG BCG 2023-0 No 50mg Common - Spirit 00:00: - CHI 00 [facility] BCG BCG 2023-0 No 50mg Common - Spirit 00:00: - CHI 00 [facility] BCG BCG 2023-0 No 50mg Common 1- Spirit 00:00: - CHI 00 [facility] BCG BCG 2023-0 No 50mg Common - Spirit 00:00: - CHI 00 [facility] BCG BCG 2023-0 No 50mg Common - Spirit 00:00: - CHI 00 [facility] BCG BCG 2022-1 No 50mg Common 2- Spirit 00:00: - CHI 00 [facility] BCG BCG 2022-1 No 50mg Common 2- Spirit 00:00: - CHI 00 [facility] BCG BCG 2022-1 No 50mg Common 2- Spirit 00:00: - CHI 00 [facility] BCG BCG 2022-1 No 50mg Common 2- Spirit 00:00: - CHI 00 [facility] BCG BCG 2022-1 No 50mg Common 2- Spirit 00:00: - CHI 00 [facility] BCG BCG 2022-1 No 50mg Common 2- Spirit 00:00: - CHI 00 [facility] BCG BCG 2022- No 50mg Common 2-28 Spirit 00:00: - CHI 00 [facility] BCG BCG 2021- No 50mg Common 2- Spirit 00:00: - CHI 00 [facility] BCG BCG 2021- No 50mg Common 2- Spirit 00:00: - CHI 00 [facility] BCG BCG 2021- No 50mg Common 2- Spirit 00:00: - CHI 00 [facility] BCG BCG 2021- No 50mg Common 2- Spirit 00:00: - CHI 00 [facility] BCG BCG 2021- No 50mg Common 2- Spirit 00:00: - CHI 00 [facility] BCG BCG 2021- No 50mg Common 2- Spirit 00:00: - CHI 00 [facility] BCG BCG 2021- No 50mg Common 2- Spirit 00:00: - CHI 00 [facility] BCG BCG 2021- No 50mg Common 2- Spirit 00:00: - CHI 00 [facility] Lidocaine Lidocaine 2021- No 10mg Com 10-19 Spirit 00:00: - CHI 00 [facility] Kenalog Kenalog 2021-09 No 40mg Common (Triamcinol (Triamcinol 2-07 S pirit one) one) 00:00: - CHI 00 [facility] Lidocaine Lidocaine 2021- No 10mg Com 10-19 Spirit 00:00: - CHI 00 [facility] Kenalog Kenalog 2021- No 40mg Common (Triamcinol (Triamcinol 2-07 S pirit one) one) 00:00: - CHI 00 [facility] Lidocaine Lidocaine 2021- No 10mg Com 10-19 Spirit 00:00: - CHI 00 [facility] Kenalog Kenalog 2021- No 40mg Common (Triamcinol (Triamcinol 2-07 S pirit one) one) 00:00: - CHI 00 [facility] Lidocaine Lidocaine 2021- No 10mg Com 10-19 Spirit 00:00: - CHI [facility] Kenalog Kenalog 2021- No 40mg Common (Triamcinol (Triamcinol 2-07 S pirit one) one) 00:00: - CHI 00 [facility] Lidocaine Lidocaine 2021-1 No 10mg Com 10-19 Spirit 00:00: - CHI 00 [facility] Kenalog Kenalog 2021- No 40mg Common (Triamcinol (Triamcinol 2-07 S pirit one) one) 00:00: - CHI 00 [facility] Lidocaine Lidocaine 2021-1 No 10mg Com 10-19 Spirit 00:00: - CHI 00 [facility] Kenalog Kenalog 2021- No 40mg Common (Triamcinol (Triamcinol 2-07 S pirit one) one) 00:00: - CHI 00 [facility] Lidocaine Lidocaine 2021- No 10mg Com 10-19 Spirit 00:00: - CHI 00 [facility] Kenalog Kenalog 2021- No 40mg Common (Triamcinol (Triamcinol 2-07 S pirit one) one) 00:00: - CHI 00 [facility] Lidocaine Lidocaine 2021-1 No 10mg Com 10-19 Spirit 00:00: - CHI 00 [facility] Kenalog Kenalog 2021- No 40mg Common (Triamcinol (Triamcinol 2-07 S pirit one) one) 00:00: - CHI 00 [facility] Trospium Trospium 2021-3- No 1{table BID Trospium Chloride 20 Chloride 20 10-14 t} Chloride MG MG 00:00: 00:00 20 MG 00 :00 Trospium Trospium 2021-1 2023- No 1{table BID Trospium Chloride 20 Chloride 20 10-14 t} Chloride MG MG 00:00: 00:00 20 MG 00 :00 Trospium Trospium 2-1 3- No 1{table BID Trospium Chloride 20 Chloride 20 10-14 t} Chloride MG MG 00:00: 00:00 20 MG 00 :00 Trospium Trospium 2021-1 2023- No 1{table BID Trospium Chloride 20 Chloride 20 10-14 t} Chloride MG MG 00:00: 00:00 20 MG 00 :00 Trospium Trospium 2021-09- No 1{table BID Trospium Chloride 20 Chloride 20 10-14 t} Chloride MG MG 00:00: 00:00 20 MG 00 :00 Trospium Trospium 2021-09- No 1{table BID Trospium Chloride 20 Chloride 20 10-14 t} Chloride MG MG 00:00: 00:00 20 MG 00 :00 Trospium Trospium 2021-09- No 1{table BID Trospium Chloride 20 Chloride 20 10-14 t} Chloride MG MG 00:00: 00:00 20 MG 00 :00 Trospium Trospium 2021-09- No 1{table BID Trospium Chloride 20 Chloride 20 10-14 t} Chloride MG MG 00:00: 00:00 20 MG 00 :00 carbidopa-l 2021-09- No 1{tbl} Q.5D TAKE 1 M ethodi evodopa 0-12 10-[address] (SINEMET 00:00: 05:59 MOUTH 2 Hospi ta CR) 50-200 00 :00 (TWO) l mg per CR TIMES A tablet DAY FOR 90 DAYS. carbidopa-l 2021-09- No 1{tbl} Q.5D TAKE 1 M ethodi evodopa 0-12 10-[address] (SINEMET 00:00: 05:59 MOUTH [...] A tablet DAY FOR 90 DAYS. carbidopa-l 2021-09 No 1{tbl} Q.5D TAKE 1 M ethodi [...] A tablet DAY FOR 90 DAYS. econazole 0 Yes QD Apply [facility] nitrate 8-25 [...] tablet 29 (two) Center times daily. econazole 2022-0 Yes QD Apply [facility] nitrate 8-25 [...] MG 24 hr 29 Center tablet predniSONE 0 Yes 20mg QD Take 20 mg C [...] es E 09:33: daily. Medical ([place], 29 [facility]) 1 % cream famotidine 2021-0 Yes [...] E 09:33: daily. Medical ([place], 29 Center [facility]) 1 % cream famotidine 2021-0 Yes 20mg [...] nitrate 8-25 topically [facility] (SPECTAZOLE 09:33: daily. [facility] emmanuel ) 1 % cream 29 [...] nitrate 8-25 topically [facility] (SPECTAZOLE 09:33: daily. [facility] emmanuel ) 1 % cream 29 Center tamsulosin 2021-0 Yes .4mg QD Take 0.[address] (FLOMAX) 8-25 mg by [facility] 0.4 mg Cp24 09:33: mouth Medic al 24 hr 29 nightly. Center capsule finasteride 2021-0 Yes 5mg QD Take [address] (PROSCAR) 5 8-25 by mouth Luke s mg tablet 09:33: nightly. [facility] emmanuel 29 [place] silver 2021-0 Yes QD Apply [facility] sulfADIAZIN 8-25 topically Kristopher es E 09:33: daily. Medical ([address]) 1 % cream famotidine 0 Yes 20mg [...] nitrate 8-25 topically [facility] (SPECTAZOLE 09:33: daily. [facility] ) 1 % cream 29 Center tamsulosin 0 Yes .4mg QD Take 0.[address] (FLOMAX) 8-25 mg by [facility] 0.4 mg Cp24 09:33: mouth Medic al 24 hr 29 nightly. [place] capsule finasteride 2021-0 Yes 5mg QD Take [address] (PROSCAR) 5 8-25 by mouth Luke s mg tablet 09:33: nightly. [facility] emmanuel 29 Center silver 2021-0 Yes QD Apply [facility] sulfADIAZIN 8-25 topically Kristopher es E 09:33: daily. Medical ([address]) 1 % cream famotidine 2021-0 Yes 20mg [...] emmanuel tablet 29 (two) Center times daily. lisinopriL 2021- No hypertensio 20mg QD Take [address] (PRINIVIL,Z 4-26 04-26 n by mouth Kristopher es ESTRIL) 20 13:05: 00:00 daily. Medi emmanuel MG tablet 14 :00 [place] lisinopriL 2021- No hypertensio 20mg QD Take [address] (PRINIVIL,Z 4-26 04-26 n by mouth Kristopher es ESTRIL) 20 13:05: 00:00 daily. Medi emmanuel MG tablet 14 :00 [place] lisinopriL 2021- No hypertensio 20mg QD Take [address] (PRINIVIL,Z 4-26 04-26 n by mouth Kristopher es ESTRIL) 20 13:05: 00:00 daily. Medi emmanuel MG tablet 14 :00 [place] lisinopriL 2021- No hypertensio 20mg QD Take [address] (PRINIVIL,Z 4-26 04-26 n by mouth Kristopher es ESTRIL) 20 13:05: 00:00 daily. Medi emmanuel MG tablet 14 :00 [place] lisinopriL 2021- No hypertensio 20mg QD Take [address] (PRINIVIL,Z 4-26 04-26 n by mouth Kristopher es ESTRIL) 20 13:05: 00:00 daily. Medi emmanuel MG tablet 14 :00 [place] lisinopriL 2021- No hypertensio 20mg QD Take [...] doctor and have blood work repeated. ciprofloxac 0 2021- No 500mg Q.5D Take [...] 2 (two) times daily for 7 days. Robaxin 500 2021-0 Yes 500 mg = 1 Memoria mg oral 4-11 tab, PO, l tablet 19:16: QID, X 7 Fredo 00 day, # 28 tab, 0 Refill(s), Pharmacy: [facility] cy #[id number], 180.34, cm, 12/12/21 18:09:00 CDT, Height, 94.545, kg, 12/12/21 18:09:00 CDT, Weight Robaxin 500 2021-0 Yes 500 mg = 1 Memoria mg oral 4-11 tab, PO, l tablet 19:16: QID, X 7 [place] 00 day, # 28 tab, 0 Refill(s), Pharmacy: [facility] cy #[id number], 180.34, cm, 12/12/21 18:09:00 CDT, Height, 94.545, kg, 12/12/21 18:09:00 CDT, Weight Robaxin 500 2021-0 Yes 500 mg = 1 Memoria mg oral 4-11 tab, PO, l tablet 19:16: QID, X 7 [place] 00 day, # 28 tab, 0 Refill(s), Pharmacy: [facility] cy #[id number], 180.34, cm, 12/12/21 18:09:00 CDT, Height, 94.545, kg, 12/12/21 18:09:00 CDT, Weight Robaxin 500 2021-0 Yes 500 mg = 1 Memoria mg oral 4-11 tab, PO, l tablet 19:16: QID, X 7 [place] 00 day, # 28 tab, 0 Refill(s), Pharmacy: [facility] cy #[id number], 180.34, cm, 12/12/21 18:09:00 CDT, Height, 94.545, kg, 12/12/21 18:09:00 CDT, Weight Robaxin 500 2021-0 Yes 500 mg = 1 Memoria mg oral 4-11 tab, PO, l tablet 19:16: QID, X 7 [place] 00 day, # 28 tab, 0 Refill(s), Pharmacy: [facility] cy #[id number], 180.34, cm, 12/12/21 18:09:00 CDT, Height, 94.545, kg, 12/12/21 18:09:00 CDT, Weight Robaxin 500 2-0 Yes 500 mg = 1 Memoria mg oral 4-11 tab, PO, l tablet 19:16: QID, X 7 [place] 00 day, # 28 tab, 0 Refill(s), Pharmacy: [facility] #[id number], 180.34, cm, 12/12/21 18:09:00 CDT, Height, 94.545, kg, 12/12/21 18:09:00 CDT, Weight Robaxin 500 2-0 Yes 500 mg = 1 Memoria mg oral 4-11 tab, PO, l tablet 19:16: QID, X 7 Fredo 00 day, # 28 tab, 0 Refill(s), [id number], 180.34, cm, 12/12/21 18:09:00 CDT, Height, 94.545, kg, 12/12/21 18:09:00 CDT, Weight Robaxin 500 2021-0 Yes 500 mg = 1 [facility]oria mg oral 4-11 tab, PO, l tablet 19:16: QID, X 7 [place] 00 day, # 28 tab, 0 Refill(s), Pharmacy: [id number], 180.34, cm, 12/12/21 18:09:00 CDT, Height, 94.545, kg, 12/12/21 18:09:00 CDT, Weight Robaxin 500 2-0 Yes 500 mg = 1 [facility] mg oral 4-11 tab, PO, l tablet 19:16: QID, X 7 [place] 00 day, # 28 tab, 0 Refill(s), Pharmacy: [facility] #[id number], 180.34, cm, 12/12/21 18:09:00 CDT, Height, 94.545, kg, 12/12/21 18:09:00 CDT, Weight Robaxin 500 2-0 Yes 500 mg = 1 [facility] mg oral 4-11 tab, PO, l tablet 19:16: QID, X 7 [place] 00 day, # 28 tab, 0 Refill(s), Pharmacy: [facility] #[id number], 180.34, cm, 12/12/21 18:09:00 CDT, Height, 94.545, kg, 12/12/21 18:09:00 CDT, Weight docusate No Notes: [facility]oria 4-03 (Same as: l 14:00: Colace) [place] 00 (Do Not Crush) thiamine No Notes: [facility] 4-03 (Same As: l 14:00: Vitamin [place] 00 B1) docusate No Notes: [facility] 4-03 (Same as: l 14:00: Colace) [place] 00 (Do Not Crush) thiamine No Notes: [facility] 4-03 (Same As: l 14:00: Vitamin [place] 00 B1) docusate No Notes: [facility] 4-03 (Same as: l 14:00: Colace) [place] 00 (Do Not Crush) thiamine No Notes: [facility] 4-03 (Same As: l 14:00: Vitamin [place] 00 B1) docusate No Notes: [facility] 4-03 (Same as: l 14:00: Colace) [place] 00 (Do Not Crush) thiamine No Notes: [facility] 4-03 (Same As: l 14:00: Vitamin [place] 00 B1) docusate No Notes: [facility] 4-03 (Same as: l 14:00: Colace) [place] 00 (Do Not Crush) thiamine No Notes: [facility] 4-03 (Same As: l 14:00: Vitamin [place] 00 B1) docusate No Notes: [facility] 4-03 (Same as: l 14:00: Colace) [place] 00 (Do Not Crush) thiamine No Notes: [facility] 4-03 (Same As: l 14:00: Vitamin [place] 00 B1) docusate No Notes: [facility] 4-03 (Same as: l 14:00: Colace) [place] 00 (Do Not Crush) thiamine No Notes: [facility] 4-03 (Same As: l 14:00: Vitamin [place] 00 B1) docusate No Notes: [facility] 4-03 (Same as: l 14:00: Colace) [place] 00 (Do Not Crush) thiamine No Notes: [facility] 4-03 (Same As: l 14:00: Vitamin [place] 00 B1) docusate No Notes: [facility] 4-03 (Same as: l 14:00: Colace) [place] 00 (Do Not Crush) thiamine No Notes: [facility] 4-03 (Same As: l 14:00: Vitamin [place] 00 B1) docusate No Notes: [facility] 4-03 (Same as: l 14:00: Colace) [place] 00 (Do Not Crush) thiamine No Notes: [facility] 4-03 (Same As: l 14:00: Vitamin [place] 00 B1) pneumococca No Notes: Sergei kristina [...] 23) Refrigerat e pneumococca No Notes: Sergei kirstina l 23-valent 4-02 (Same as: l vaccine 22:55: Pneumovax Sunita nn 45 23) Refrigerat e pneumococca No Notes: Sergei kristina l 23-valent 12-12 (Same as: l vaccine 22:55: Pneumovax [place] nn 45 23) Refrigerat e pneumococca No Notes: Sergei kristina l 23-valent 12-12 (Same as: l vaccine 22:55: Pneumovax Sun[place] nn 45 ) Refrigerat e Metoprolol Yes 50 mg = 1 Me moria Succinate 4-02 tab, PO, l ER 50 mg 22:55: Daily, # [place] nn oral 00 30 tab, 0 tablet, Refill(s) extended release predniSONE Yes 20 mg = 1 Me moria 20 mg oral 4-02 tab, PO, l tablet 22:55: Daily, 0 [place] 00 Refill(s) Metoprolol Yes 50 mg = 1 Me moria Succinate 4-02 tab, PO, l ER 50 mg 22:55: Daily, # [place] nn oral 00 30 tab, 0 tablet, Refill(s) extended release predniSONE Yes 20 mg = 1 Me moria 20 mg oral 4-02 tab, PO, l tablet 22:55: Daily, 0 [place] 00 Refill(s) Metoprolol Yes 50 mg = 1 Me moria Succinate 4-02 tab, PO, l ER 50 mg 22:55: Daily, # [place] nn oral 00 30 tab, 0 tablet, Refill(s) extended release predniSONE Yes 20 mg = 1 Me moria 20 mg oral 4-02 tab, PO, l tablet 22:55: Daily, 0 [place] 00 Refill(s) Metoprolol Yes 50 mg = 1 Me moria Succinate 4-02 tab, PO, l ER 50 mg 22:55: Daily, # [place] nn oral 00 30 tab, 0 tablet, Refill(s) extended release predniSONE Yes 20 mg = 1 Me moria 20 mg oral 4-02 tab, PO, l tablet 22:55: Daily, 0 [place] 00 Refill(s) Metoprolol Yes 50 mg = 1 Me moria Succinate 4-02 tab, PO, l ER 50 mg 22:55: Daily, # [place] nn oral 00 30 tab, 0 tablet, Refill(s) extended release predniSONE 0 Yes 20 mg = 1 Me moria 20 mg oral 4-02 tab, PO, l tablet 22:55: Daily, 0 [place] Refill(s) Metoprolol 0 Yes 50 mg = [...] tab, PO, l tablet 22:55: Daily, 0 [place] 00 Refill(s) Metoprolol 0 Yes 50 mg = 1 Me moria Succinate 4-02 tab, PO, l ER 50 mg 22:55: Daily, # [place] nn oral 00 30 tab, 0 tablet, Refill(s) extended release predniSONE 0 Yes 20 mg = 1 Me moria 20 mg oral 4-02 tab, PO, l tablet 22:55: Daily, 0 [place] 00 Refill(s) Metoprolol 0 Yes 50 mg [...] tab, PO, l tablet 22:54: Daily, # [place] 00 30 tab, 0 Refill(s) carbidopa-l 2022-0 [...] tab, PO, l tablet 22:54: Daily, # [place] 00 30 tab, 0 Refill(s) carbidopa-l 2022-0 Yes 1 tab, PO, [facility] evodopa 50 4-02 BID, # 60 l mg-200 mg 22:54: tab, 0 [place] n oral 00 Refill(s) tablet, extended release lisinopril 2022-0 Yes 20 mg = 1 Me moria 20 mg oral 4-02 tab, PO, l tablet 22:54: Daily, # [place] 00 30 tab, 0 Refill(s) carbidopa-l 2022-0 Yes 1 tab, PO, [facility] evodopa 50 4-02 BID, # 60 l mg-200 mg 22:54: tab, 0 [place] n oral 00 Refill(s) tablet, extended release lisinopril 2022-0 Yes 20 mg = 1 Me moria 20 mg oral 4-02 tab, PO, l tablet 22:54: Daily, # [place] 00 30 tab, 0 Refill(s) carbidopa-l 2022-0 Yes 1 tab, PO, [facility] evodopa 50 4-02 BID, # 60 l mg-200 mg 22:54: tab, 0 [place] n oral 00 Refill(s) tablet, extended release lisinopril 2022-0 Yes 20 mg = 1 Me moria 20 mg oral 4-02 tab, PO, l tablet 22:54: Daily, # [place] 00 30 tab, 0 Refill(s) carbidopa-l 2022-0 Yes 1 tab, PO, [facility] evodopa 50 4-02 BID, # 60 l mg-200 mg 22:54: tab, 0 [place] n oral 00 Refill(s) tablet, extended release lisinopril 2022-0 Yes 20 mg = 1 Me moria 20 mg oral 4-02 tab, PO, l tablet 22:54: Daily, # [place] 00 30 tab, 0 Refill(s) carbidopa-l 2022-0 Yes 1 tab, PO, [facility] evodopa 50 4-02 BID, # 60 l mg-200 mg 22:54: tab, 0 [place] n oral 00 Refill(s) tablet, extended release lisinopril 2022-0 Yes 20 mg = 1 Me moria 20 mg oral 4-02 tab, PO, l tablet 22:54: Daily, # [place] 00 30 tab, 0 Refill(s) carbidopa-l 2022-0 Yes 1 tab, PO, [facility] evodopa 50 4-02 BID, # 60 l mg-200 mg 22:54: tab, 0 [place] n oral 00 Refill(s) tablet, extended release lisinopril 2022-0 Yes 20 mg = 1 Me moria 20 mg oral 4-02 tab, PO, l tablet 22:54: Daily, # [place] 00 30 tab, 0 Refill(s) carbidopa-l 2022-0 [...] 4-02 Q12H, tab, l tablet 22:53: 0 [place] 00 Refill(s), For Atrial Fibrilatio n Eliquis 5 2021-0 Yes 5 mg, PO, Mem oria mg oral 4-02 Q12H, tab, l tablet 22:53: 0 [place] 00 Refill(s), For Atrial Fibrilatio n Eliquis 5 2021-0 Yes 5 mg, PO, Mem oria mg oral 4-02 Q12H, tab, l tablet 22:53: 0 [place] 00 Refill(s), For Atrial Fibrilatio n Eliquis 5 2021-0 Yes 5 mg, PO, Mem oria mg oral 4-02 Q12H, tab, l tablet 22:53: 0 [place] 00 Refill(s), For Atrial Fibrilatio n Eliquis [...] 4-02 Q12H, tab, l tablet 22:53: 0 [place] 00 Refill(s), For Atrial Fibrilatio n Eliquis 5 2021-0 Yes 5 mg, PO, Mem oria mg oral 4-02 Q12H, tab, l tablet 22:53: 0 [place] 00 Refill(s), For Atrial Fibrilatio n Eliquis 5 2021-0 Yes 5 mg, PO, Mem oria mg oral 4-02 Q12H, tab, l tablet 22:53: 0 [place] 00 Refill(s), For Atrial Fibrilatio n hydrALAZINE 2021-0 Yes 50 mg = 1 [...] tab, PO, l tablet 22:52: BID, 0 [place] 00 Refill(s) hydrALAZINE 2-0 Yes 50 mg = 1 M emoria 50 mg oral 4-02 tab, PO, l tablet 22:52: BID, 0 [place] 00 Refill(s) hydrALAZINE 2021-0 Yes 50 mg = 1 M emoria 50 mg oral 4-02 tab, PO, l tablet 22:52: BID, 0 [place] 00 Refill(s) hydrALAZINE 2021-0 Yes 50 mg = 1 M emoria 50 mg oral 4-02 tab, PO, l tablet 22:52: BID, 0 [place] 00 Refill(s) hydrALAZINE 2-0 Yes 50 mg = 1 M emoria 50 mg oral 4-02 tab, PO, l tablet 22:52: BID, 0 [place] 00 Refill(s) hydrALAZINE 2-0 Yes 50 mg = 1 M emoria 50 mg oral 4-02 tab, PO, l tablet 22:52: BID, 0 [place] 00 Refill(s) hydrALAZINE 2-0 Yes 50 mg = 1 M emoria 50 mg oral 4-02 tab, PO, l tablet 22:52: BID, 0 [place] 00 Refill(s) D10W 2021-0 No 125 mL, [facility] (bolus) IV 4-02 999 ml/hr, l 22:32: Route: [place] 00 IVPB, Drug Form: INJ, kg, PRN, PRN Blood Glucose Results, Start date: 12/12/21 17:32:00 CDT, Duration: 30 day, Stop date: 01/11/22 17:31:00 CDT, Infuse over: 0.1 hr, 0 D10W 2021-0 No 125 mL, [facility] (bolus) IV 4-02 999 ml/hr, l 22:32: Route: [place] IVPB, Drug Form: INJ, kg, PRN, PRN [...] 4-02 999 ml/hr, l 22:32: Route: [place] IVPB, Drug Form: INJ, kg, PRN, PRN Blood Glucose Results, Start date: 12/12/21 17:32:00 CDT, Duration: 30 day, Stop date: 01/11/22 17:31:00 CDT, Infuse over: 0.1 hr, 0 D10W 2021-0 No 125 mL, [facility] (bolus) IV 4-02 999 ml/hr, l 22:32: Route: [place] IVPB, Drug Form: INJ, kg, PRN, PRN Blood Glucose Results, Start date: 12/12/21 17:32:00 CDT, Duration: 30 day, Stop date: 01/11/22 17:31:00 CDT, Infuse over: 0.1 hr, 0 D10W 2021-0 No 125 mL, [facility] (bolus) IV 4-02 999 ml/hr, l 22:32: Route: [place] IVPB, Drug Form: INJ, kg, PRN, PRN Blood Glucose Results, Start date: 12/12/21 17:32:00 CDT, Duration: 30 day, Stop date: 01/11/22 17:31:00 CDT, Infuse over: 0.1 hr, 0 D10W 2021-0 No 125 mL, [facility] (bolus) IV 4-02 999 ml/hr, l 22:32: Route: [place] IVPB, Drug Form: INJ, kg, PRN, PRN Blood Glucose Results, Start date: 12/12/21 17:32:00 CDT, Duration: 30 day, Stop date: 01/11/22 17:31:00 CDT, Infuse over: 0.1 hr, 0 Dextrose 2021-0 No 25 mL, [facility] 50% Syringe 12-12 Route: l (D50W) 22:06: IVP, kg, [place] 00 PRN, PRN Blood Glucose Results, Start [...] 12-12 Route: l (D50W) 22:06: IVP, kg, [place] PRN, PRN Blood Glucose Results, Start date: 12/12/21 17:06:00 CDT, Duration: 30 day, Stop date: 01/11/22 17:05:00 CDT glucagon No 1 mg, [facility] 12-12 Route: IM, l 22:06: Drug form: [place] PDR/INJ, PRN, kg, PRN Blood Glucose Results, [...] 12-12 not exceed l 22:06: 4 gm/day. [place] 00 (Same as: Tylenol) Dextrose 0 No 25 mL, [facility] 50% Syringe 12-12 Route: l (D50W) 22:06: IVP, kg, [place] 00 PRN, PRN Blood Glucose Results, Start date: 12/12/21 17:06:00 CDT, Duration: 30 day, Stop date: 01/11/22 17:05:00 CDT glucagon No 1 mg, [facility] 12-12 Route: IM, l 22:06: Drug form: [place] 00 PDR/INJ, PRN, kg, PRN Blood Glucose Results, Start date: 12/12/21 17:06:00 CDT, Duration: 30 day, Stop date: 01/11/22 17:05:00 CDT, 0 ondansetron No Notes: Sergei kristina 12-12 (Same as: l 22:06: Zofran) MEDICATION WASTE Product Size: 4 mg Product Wasted: ___ mg melatonin No Notes: Memori a 12-12 (Same as: l 22:06: Melatonin) acetaminoph No Notes: Do Henry hairston en 12-12 not exceed l 22:06: 4 gm/day. [place] 00 (Same as: Tylenol) Dextrose 0 No 25 mL, [facility] 50% [...] 12-12 Route: l (D50W) 22:06: IVP, kg, [place] 00 PRN, PRN Blood Glucose Results, Start date: 12/12/21 17:06:00 CDT, Duration: 30 day, Stop date: 01/11/22 17:05:00 CDT glucagon 2021-0 No 1 mg, [facility] 12-12 Route: IM, l 22:06: Drug form: [place] 00 PDR/INJ, PRN, kg, PRN Blood Glucose [...] 12-12 Route: IM, l 22:06: Drug form: [place] PDR/INJ, PRN, kg, PRN Blood Glucose Results, [...] 12-12 not exceed l 22:06: 4 gm/day. [place] 00 (Same as: Tylenol) Dextrose No 25 mL, [facility] 50% Syringe 12-12 Route: l (D50W) 22:06: IVP, kg, [place] 00 PRN, PRN Blood Glucose Results, Start date: 12/12/21 17:06:00 CDT, Duration: 30 day, Stop date: 01/11/22 17:05:00 CDT glucagon 2021-0 No 1 mg, [facility] 12-12 Route: IM, l 22:06: Drug form: [place] PDR/INJ, PRN, kg, PRN Blood Glucose Results, Start date: 12/12/21 17:06:00 CDT, Duration: 30 day, Stop date: 01/11/22 17:05:00 CDT, 0 ondansetron No Notes: Sergei kristina 12-12 (Same as: l 22:06: Zofran) MEDICATION WASTE Product Size: 4 mg Product Wasted: ___ mg melatonin No Notes: Memori a 12-12 (Same as: l 22:06: Melatonin) acetaminoph No Notes: Do Henry hairston en 12-12 not exceed l 22:06: 4 gm/day. [place] 00 (Same as: Tylenol) Dextrose No 25 mL, [facility] 50% Syringe 12-12 Route: l (D50W) 22:06: IVP, kg, [place] PRN, PRN Blood Glucose Results, Start date: 12/12/21 17:06:00 CDT, Duration: 30 day, Stop date: 01/11/22 17:05:00 CDT glucagon 0 No 1 mg, [facility] 12-12 Route: IM, l 22:06: Drug form: [place] PDR/INJ, PRN, kg, PRN Blood Glucose Results, [...] l 22:06: 4 gm/day. (Same as: Tylenol) GABAPENTIN 2020-09 Yes TAKE 1 Unive rs [...] dizziness. l Does not know dosage finasteride 2021-1 Yes 5mg QD Take 5 mg M [...] a tablet day for 90 days. carbidopa-l 2020-09 No 1{tbl} Q.5D Take 1 M [facility]i evodopa 0-26 10-[address] (Sin[facility] 00:00: 00:00 mouth 2 Hospi ta CR) 50-200 00 :00 (two) l mg per CR times a tablet day for 90 days. carbidopa-l 2020-09 No 1{tbl} Q.5D Take 1 M [facility]i evodopa 0-26 10-[address] (Sinemet 00:00: 00:00 mouth 2 Hospi ta CR) 50-200 00 :00 (two) l mg per CR times a tablet day for 90 days. carbidopa-l 2020-09 No 1{tbl} Q.5D Take 1 M [facility]i evodopa 0-26 10-[address] (Sinemet 00:00: 00:00 mouth 2 Hospi ta CR) 50-200 00 :00 (two) l mg per CR times a tablet day for 90 days. carbidopa-l 2020-09 No 1{tbl} Q.5D Take 1 M [facility]i evodopa 0-26 10-[address] ([facility]et 00:00: 00:00 mouth 2 Hospi ta CR) 50-200 00 :00 (two) l mg per CR times a tablet day for 90 days. carbidopa-l 2020-09 No 1{tbl} Q.5D Take 1 M ethodi [...] day for 90 days. gabapentin 2020-09 Yes Q.[id number] 3 (three) [facility] (NEURONTIN) 0-[id number] 100 mg 00:00: 3D day. [facility]osp[facility] capsule 00 l gabapentin 2020-09 Yes Q.[id number] 3 (three) [facility] (NEURONTIN) 0-[id number] 100 mg 00:00: 3D day. [facility]ospita capsule 00 l gabapentin 2020-09 Yes Q.[id number] 3 (three) [facility] (NEURONTIN) 0-[id number] 100 mg 00:00: 3D day. [facility]ospita capsule 00 l gabapentin 2020-09 Yes Q.[id number] 3 (three) [facility] (NEURONTIN) 0-[id number] 100 mg 00:00: 3D day. [facility]ospita capsule 00 l gabapentin 2020-09 Yes Q.[id number] 3 (three) [facility] (NEURONTIN) 0-[id number] 100 mg 00:00: 3D day. [facility]ospita capsule 00 l gabapentin 2020-09 Yes Q.[id number] 3 (three) [facility] (NEURONTIN) 0-[id number] 100 mg 00:00: 3D day. [facility]ospita capsule 00 l gabapentin 2020-09 Yes Q.[id number] 3 (three) [facility] (NEURONTIN) 0-[id number] 100 mg 00:00: 3D [...] 00:00: day. [facility]ospita tablet 00 l tamsulosin 2021-0 Yes [facility] (FLOMAX) [...] 00:00: Hospita capsule 00 l Eliquis 5 2021-0 Yes Q.5D [...] st 00:00: day. [facility]ospita 00 l lisinopriL 2021-0 Yes 20mg QD 20 mg [...] 20mg QD 20 mg [facility] (PRINIVIL) [address] 20 mg 00:00: Hospita tablet [...] l 50 mg 24 hr tablet carbidopa-l 202-0 Yes [id number] 1{tbl} Take 1 [facility] evodopa 1-29 tablet by ity of 25-100 mg 00:00: mouth 3 [place] tablet 00 (three) Medical times Branch daily. carbidopa-l 2021-0 Yes [id number] 1{tbl} Take 1 [facility] evodopa 1-29 tablet by ity of 25-100 mg 00:00: mouth 3 [place] tablet 00 (three) Medical times Branch daily. carbidopa-l 2021-0 Yes [id number] 1{tbl} Take 1 [facility] evodopa 1-29 tablet by ity of 25-100 mg 00:00: mouth 3 [place] tablet 00 (three) Medical times Branch daily. carbidopa-l 2021-0 Yes [id number] 1{tbl} Take 1 [facility] evodopa 1-29 tablet [...] of mg tablet 00:00: mouth 2 [place] 00 (two) Medical times Branch daily. Indication s: atrial fibrillati on apixaban Yes [id number] 5mg Take 1 Univers (ELIQUIS) 5 1-07 tablet by ity of mg tablet 00:00: mouth 2 [place] 00 (two) Medical times Branch daily. Indication s: atrial fibrillati on apixaban Yes 1358 5mg Take 1 [facility] (ELIQUIS) 5 1-07 tablet by ity of mg tablet 00:00: mouth 2 [place] 00 (two) Medical times Branch daily. Indication s: atrial fibrillati on nortriptyli 2019-09 Yes 50mg Take 50 mg Univers ne 50 mg 2-28 by mouth ity of capsule 11:32: at [place] [address] bedtime. Medical Branch finasteride 2019-09 Yes 5mg Take 5 mg U nivers 5 mg tablet 2-28 by mouth ity of 11:32: daily. [address] Branch nortriptyli 2019-09 Yes 50mg Take 50 mg Univers ne 50 mg 2-28 by mouth ity of capsule 11:32: at [place] [address] bedtime. Medical Branch finasteride 2019-09 Yes 5mg Take 5 mg U nivers 5 mg tablet 2-28 by mouth ity of 11:32: daily. [address] Branch nortriptyli 2019-09 Yes 50mg Take 50 mg Univers ne 50 mg 2-28 by mouth ity of capsule 11:32: at [place] [address] bedtime. Medical Branch finasteride 2019-09 Yes 5mg Take 5 mg U nivers 5 mg tablet 2-28 by mouth ity of 11:32: daily. [address] Branch nortriptyli 2019-09 Yes 50mg Take 50 mg Univers ne 50 mg 2-28 by mouth ity of capsule 11:32: at [place] [address] bedtime. Medical Branch finasteride 2019-09 Yes 5mg Take 5 mg U nivers 5 mg tablet 2-28 by mouth ity of 11:32: daily. [address] tamsulosin 2019-09 Yes .4mg Take 0.4 Uni [...] Medical Branch magnesium 2019-09 Yes Take by Univ ers oxide 400 2-28 mouth ity of mg [...] with my balance problem" lisinopriL 2019-09 Yes [id number] 10mg Take 1 U nivers 10 mg 2-17 tablet by ity of tablet 00:00: mouth [place] 00 daily. Medical Branch lisinopriL 2019-09 Yes [id number] 10mg Take 1 U nivers 10 mg 2-17 tablet by ity of tablet 00:00: mouth [place] 00 daily. Medical Branch lisinopriL 2019-09 Yes [id number] 10mg Take 1 U nivers 10 mg 2-17 tablet by ity of tablet 00:00: mouth [place] 00 daily. Medical Branch lisinopriL 2019-09 Yes [id number] 10mg Take 1 U nivers 10 mg 2-17 tablet by ity of tablet 00:00: mouth [place] 00 daily. Medical Branch hydrALAZINE 2019-09 Yes [id number] 50mg Take 1 Univers 50 mg 0-15 tablet by ity of tablet 00:00: mouth 2 (two) Medical times Branch daily. hydrALAZINE 2019-09 Yes [id number] 50mg Take 1 Univers 50 mg 0-15 tablet by ity of tablet 00:00: mouth 2 (two) Medical times Branch daily. hydrALAZINE 2019-09 Yes [id number] 50mg Take 1 Univers 50 mg 0-15 tablet by ity of tablet 00:00: mouth 2 (two) Medical times Branch daily. hydrALAZINE 2019-09 Yes [id number] 50mg Take 1 Univers 50 mg 0-15 tablet by ity of tablet 00:00: mouth 2 (two) Medical times Branch daily. Furosemide Furosemide No 1{table QD Furosemide 20 [...] Completed Unive rsity of MODERNA VACCINE 00:00:00 [facility] SARS-COV-2 COVID-19 2021-05-20 Completed Unive rsity of MODERNA 12+ YRS 00:00:00 [place] Med ical VACCINE Branch SARS-COV-2 COVID-19 2021-05-20 Completed Unive rsity of MODERNA 12+ YRS 00:00:00 [place] Med ical VACCINE Branch SARS-COV-2 COVID-19 2021-05-20 Completed Unive rsity [...] 00:00:00 [place] Med ical Branch SARS-COV-2 COVID-19 2020-09-17 Completed Unive rsity of MODERNA 12+ YRS 00:00:00 [place] Med ical VACCINE Branch SARS-COV-2 COVID-19 2020-09-17 Completed Unive rsity of MODERNA 12+ YRS 00:00:00 [place] [facility] ical VACCINE Branch SARS-COV-2 COVID-19 2020-09-17 Completed Unive rsity of MODERNA 12+ YRS 00:00:00 [place] Med ical VACCINE Branch Pneumococcal 2019-10-05 Completed University o f Polysaccharide, 00:00:00 [place] Med ical PPSV23 (PNEUMOVAX) Branch Pneumococcal 2019-10-05 Completed University o f Polysaccharide, 00:00:00 [place] Med ical PPSV23 (PNEUMOVAX) Branch Pneumococcal 2019-10-05 Completed University o f Polysaccharide, 00:00:00 [place] Med ical PPSV23 (PNEUMOVAX) Branch Pneumococcal 2019-10-05 Completed University o f Polysaccharide, 00:00:[address] [facility] PPSV23 (PNEUMOVAX) [place] Influenza High Dose 2019-06-12 Completed Unive rsity of 00:00:00 [facility] Influenza High Dose 2019-06-12 Completed Unive rsity of 00:00:00 [facility] Influenza High Dose 2019-06-12 Completed Unive rsity of 00:00:00 [facility] Influenza High Dose 2019-06-12 Completed Unive rsity of 00:00:00 [facility] Hepatitis A Adult 2019-03-29 Completed Univers ity of 00:00:00 [facility] Hepatitis A Adult 2019-03-29 Completed Univers ity of 00:00:00 [facility] Hepatitis A Adult 2019-03-29 Completed Univers ity of 00:00:00 [facility] Hepatitis A Adult 2019-03-29 Completed Univers ity of 00:00:00 [facility] DTAP 2019-03-12 Completed University of 00:00:00 [facility] DTAP 2019-03-12 Completed University of 00:00:00 [facility] DTAP 2019-03-12 Completed University of 00:00:00 [facility] DTAP 2019-03-12 Completed University of 00:00:00 [facility] HEPATITIS A 2018-09-29 Completed [facility] 00:[facility]:00 [facility] HEPATITIS A 2018-09-29 Completed [facility] of 00:00:00 [facility] HEPATITIS A 2018-09-29 Completed University of 00:00:00 [facility] TDAP 2018-09-29 Completed University of 00:00:00 [facility] HEPATITIS A 2018-09-29 Completed University of 00:00:00 [facility] TDAP 2018-09-29 Completed University of 00:00:00 [facility] Pneumococcal 2016-08-18 [facility]pleted [facility] Pol[facility] (Pneumovax) Td 2016-02-09 Completed University of 00:00:00 [facility] Td 2016-02-09 Completed University of 00:00:00 [facility] TD, NOS 2016-02-09 Completed University of 00:00:00 [facility] TD, NOS 2016-02-09 Completed University of 00:00:00 [facility] Vital Signs Vital Name Observation Time Observation Value Comments Source Systolic blood 2023-05-24 04:15:00 118 mm[Hg] Univer sity of pressure [facility] Diastolic blood 2023-05-24 04:15:00 64 mm[Hg] Unive rsity of [facility] Heart rate 2023-05-24 04:15:00 80 /min [facility] Body temperature 2023-05-24 04:15:[address] [facility] 2023-05-24 04:15:00 29 /min [facility] Oxygen saturation in 2023-05-24 04:15:00 98 /min [facility] Arterial blood by [facility] Pulse oximetry Branch Body weight 2023-05-24 01:03:00 74.844 [facility] BMI 2023-05-24 01:03:00 23.01 kg/m2 [facility] Systolic blood 2023-03-21 04:30:00 127 mm[Hg] Univer sity of pressure [facility] Diastolic blood 2023-03-21 04:30:00 66 mm[Hg] Unive rsity of [facility] Heart rate 2023-03-21 04:30:00 67 /min [facility] Body temperature 2023-03-21 04:30:00 36.11 [facility] rate 2023-03-21 04:30:00 25 /min [facility] Oxygen saturation in 2023-03-21 04:30:00 98 /min [facility] Arterial blood by [facility] Pulse oximetry Branch Body height 2023-03-21 02:24:48 [facility] Body weight 2023-03-21 02:24:48 101.152 kg Universi [facility] BMI 2023-03-21 02:24:48 31.10 kg/m2 [facility] height 2022-10-13 13:00:00 71 [in_i] [facility] weight 2022-10-13 13:00:00 214 [lb_av] [facility] temperature 2022-10-13 13:00:00 98.6 [degF] [facility] bmi 2022-10-13 13:00:00 29.84 kg/m2 [facility] height 2022-10-06 13:00:00 71 [in_i] [facility] weight 2022-10-06 13:00:00 214 [lb_av] [facility] temperature 2022-10-06 13:00:00 98.6 [degF] [facility] bmi 2022-10-06 13:00:00 29.84 kg/m2 [facility] oximetry 2022-10-06 13:00:00 94 % [facility] blood pressure 2022-10-06 13:00:00 132 mm[Hg] [facility] systolic [facility] blood pressure 2022-10-06 13:00:00 68 mm[Hg] [facility] - diastolic [facility] height 2022-09-15 15:15:00 71 [in_i] [facility] weight 2022-09-15 15:15:00 214 [lb_av] [facility] temperature 2022-09-15 15:15:00 98.6 [degF] [facility] bmi 2022-09-15 15:15:00 29.84 kg/m2 [facility] oximetry 2022-09-15 15:15:00 96 % [facility] respiratory rate 2022-09-15 15:15:00 16 /min [facility] blood pressure 2022-09-15 15:15:00 126 mm[Hg] [facility] - systolic [facility] blood pressure 2022-09-15 15:15:00 68 mm[Hg] [facility] - [facility] height 2022-09-08 13:00:00 71 [in_i] [facility] weight 2022-09-08 13:00:00 214 [lb_av] [facility] temperature 2022-09-08 13:00:00 97.3 [degF] Common S [facility] bmi 2022-09-08 13:00:00 29.84 kg/m2 [facility] oximetry 2022-09-08 13:00:00 99 % Common [facility] blood pressure 2022-09-08 13:00:00 136 mm[Hg] Common [facility] - systolic [facility] blood pressure 2022-09-08 13:00:00 84 mm[Hg] [facility] - [facility] height 2022-09-01 13:15:00 71 [in_i] Common S [facility] weight 2022-09-01 13:15:00 214 [lb_av] [facility] temperature 2022-09-01 13:15:00 97.8 [degF] [facility] bmi 2022-09-01 13:15:00 29.84 kg/m2 [facility] oximetry 2022-09-01 13:15:00 96 % [facility] respiratory rate 2022-09-01 13:15:00 16 /min Comm on [facility] - [facility] blood pressure 2022-09-01 13:15:00 154 mm[Hg] [facility] - [facility] blood pressure 2022-09-01 13:15:00 68 mm[Hg] [facility] - [facility] Systolic blood 2022-06-01 23:52:00 132 mm[Hg] [facility] Diastolic blood 2022-06-01 23:52:00 71 mm[Hg] [facility] Heart rate 2022-06-01 23:48:00 114 /min Universi ty [facility] Body temperature 2022-06-01 23:48:[address] [facility] 2022-06-01 23:48:00 18 /min [facility] Body height 2022-06-01 23:48:00 180.3 cm [facility] Body weight 2022-06-01 23:48:00 101.424 [facility] BMI 2022-06-01 23:48:00 31.19 kg/m2 [facility] Oxygen saturation in 2022-06-01 23:48:00 97 /min [facility] Arterial blood by [facility] Pulse oximetry Branch HEIGHT 2022-05-03 07:32:00 180.3 cm WEIGHT 2022-05-03 07:32:00 100.699 kg HEIGHT 2022-05-03 07:32:00 180.3 cm WEIGHT 2022-05-03 07:32:00 100.699 kg Systolic blood 2022-05-03 17:31:00 97 mm[Hg] [facility] Diastolic blood 2022-05-03 17:31:00 50 mm[Hg] [facility] S t [facility] Heart rate 2022-05-03 17:31:00 96 /min [facility] Body temperature 2022-05-03 17:31:00 35.94 Pattie [facility] Respiratory rate 2022-05-03 17:31:00 18 /min [facility] Oxygen saturation in 2022-05-03 17:31:00 100 /min [facility] Arterial blood by Medical Ce nter Pulse oximetry Body height 2022-05-03 07:32:00 180.3 cm [facility] Body weight 2022-05-03 07:32:00 100.699 kg [facility] BMI 2022-05-03 07:32:00 30.96 kg/m2 [facility] Heart Rate 2021-12-13 01:12:24 [facility] Respitory Rate 2021-12-13 01:12:24 Memori al [place] Systolic (mm Hg) 2021-12-13 01:12:14 Sergei rial [place] Diastolic (mm Hg) 2021-12-13 01:12:14 Mem orial [place] Heart Rate 2021-12-13 01:12:14 [facility] Temperature Oral (F) 2021-12-13 01:11:50 97.6 F [facility] [place] Height 2021-12-12 23:09:00 180.34 cm [facility] [place] Weight 2021-12-12 23:09:00 [facility] BMI Calculated 2021-12-12 23:09:00 Memori al [place] Heart Rate 2021-12-12 22:02:05 [facility] Respitory Rate 2021-12-12 22:02:05 Memori al [place] Systolic (mm Hg) 2021-12-12 22:01:44 Sergei rial [place] Diastolic (mm Hg) 2021-12-12 22:01:44 Mem orial [place] Temperature Oral (F) 2021-12-12 22:00:54 97.7 F [facility] Sy[facility]olic blood 2021-07-07 18:25:00 123 mm[Hg] Method t [facility] pressure Diastolic blood 2021-07-07 18:25:00 72 mm[Hg] [facility] pressure Heart rate 2021-07-07 18:25:00 84 /min [facility] Body temperature 2021-07-07 18:17:00 36.28 Pattie [facility] Body height 2021-07-07 18:17:00 177.8 cm [facility] Body weight 2021-07-07 18:17:00 93.895 kg [facility] BMI 2021-07-07 18:17:00 29.70 kg/m2 Methodis t [facility] Procedures Procedure Date / Time Performing Clinician Source Performed EKG-12 LEAD 2023-05-24 04:09:29 [facility] URINALYSIS 2023-05-24 03:07:00 [facility] CT CERVICAL SPINE WO 2023-05-24 01:58:42 Jordon Marti [facility] CT HEAD WO CONTRAST 2023-05-24 01:58:42 [facility] COMP. METABOLIC PANEL 2023-05-24 01:06:00 Jordon Marti [facility] ([id number]) [facility] ETHANOL 2023-05-24 01:06:00 [facility]ordon [facility] CBC WITH DIFF 2023-05-24 01:06:00 Jordon [facility] EKG-12 LEAD 2023-03-21 04:47:50 Mona Arce [facility] URINALYSIS 2023-03-21 03:34:00 Mona Arce [facility] CT CERVICAL SPINE WO 2023-03-21 02:49:00 Mona Arce [facility] NOTICE OF PRIVACY 2023-03-21 02:34:11 Doctor Unassigned, No [facility] PRACTICES Name [facility] CONSENT/REFUSAL FOR 2023-03-21 02:33:34 [facility], [facility] MAGNESIUM 2023-03-21 02:31:00 Mona Arce [facility] COMP. METABOLIC PANEL 2023-03-21 02:31:00 Mona Arce [facility] ([id number]) [facility] CBC WITH DIFF 2023-03-21 02:31:00 Mona Arce [facility] PROTHROMBIN TIME / INR 2023-03-21 02:31:00 Mona Arce [facility] IR NEPHROSTOMY TUBE 2022-05-03 13:35:00 [facility] POCT-GLUCOSE METER 2022-05-03 09:23:00 Milad Mendez [facility] CBC W/PLT COUNT & AUTO 2022-05-03 09:17:00 [facility] PROTHROMBIN TIME/INR 2022-05-03 09:17:00 Kelle Velazco [facility] CBC W/PLT COUNT & AUTO 2022-05-03 09:17:00 [facility] POCT-GLUCOSE METER 2022-01-05 11:47:00 [facility] BASIC METABOLIC PANEL 2022-01-05 04:12:00 [facility] [place] CBC W/PLT COUNT & AUTO 2022-01-05 04:12:00 [facility] [place] CBC W/PLT COUNT & AUTO 2022-01-05 04:12:00 [facility] [place] URINE CULTURE 2022-01-04 20:26:00 [facility] GRAM STAIN 2022-01-04 20:26:00 [facility]ad [facility] IR PERCUTANEOUS 2022-01-04 18:44:00 Rashaad [facility] NEPHROSTOMY TUBE Center PLACEMENT BASIC METABOLIC PANEL 2022-01-04 04:04:00 [facility] CBC W/PLT COUNT & AUTO 2022-01-04 04:04:00 [facility] DIFFERENTIAL [facility] CBC W/PLT COUNT & AUTO 2022-01-04 04:04:00 [facility] DIFFERENTIAL Rasendu [place] URINALYSIS W/ REFLEX 2022-01-03 23:04[facility] COMPREHENSIVE METABOLIC 2022-01-03 22:44:00 Burton [facility] PANEL Center CBC W/PLT COUNT & AUTO 2022-01-03 22:44:00 [facility]al [facility] DIFFERENTIAL Center PT/APTT 2022-01-03 22:44:[address] [facility] PROTHROMBIN TIME/INR 2022-01-03 22:44:[address] [facility] CBC W/PLT COUNT & AUTO 2022-01-03 22:44:00 Mic[facility]al [facility] DIFFERENTIAL Center MRI BRAIN WO CONTRAST 2021-07-09 19:50:00 [facility] Hernia repair [facility] Plan of Care Planned Activity Planned Date Details Comments Source Future Scheduled 2029-03-12 DTAP/TDAP/TD VACCINES [facility] 00:[facility]00 (3 - Td or Tdap) [code Medic al Center = DTAP/TDAP/TD VACCINES (3 - Td or Tdap)] Future Scheduled 2029-03-12 DTAP/TDAP/TD VACCINES [facility] 00:00:00 (3 - Td or Tdap) [code Medic al Center = DTAP/TDAP/TD VACCINES (3 - Td or Tdap)] Future Scheduled 2029-03-12 DTAP/TDAP/TD VACCINES [facility] 00:00:00 (3 - Td or Tdap) [code Medic al Center = DTAP/TDAP/TD VACCINES (3 - Td or Tdap)] Future Scheduled 2029-03-12 DTAP/TDAP/TD VACCINES [facility] 00:00:00 (3 - Td or Tdap) [code Medic al Center = DTAP/TDAP/TD VACCINES (3 - Td or Tdap)] Future Scheduled 2029-03-12 DTAP/TDAP/TD VACCINES [facility] 00:00:00 (3 - Td or Tdap) [code Medic al Center = DTAP/TDAP/TD VACCINES (3 - Td or Tdap)] Future Scheduled 2029-03-12 DTAP/TDAP/TD VACCINES [facility] 00:00:00 (3 - Td or Tdap) [code Medic al Center = DTAP/TDAP/TD VACCINES (3 - Td or Tdap)] Future Scheduled 2029-03-12 DTAP/TDAP/TD VACCINES [facility] 00:00:00 (3 - Td or Tdap) [code Medic al Center = DTAP/TDAP/TD VACCINES (3 - Td or Tdap)] Future Scheduled 2023-05-15 SHINGLES VACCINES (1 Met [facility] Hospital Test 09:07:10 of 2) [code = SHINGLES VACCINES (1 of 2)] Future Scheduled 2023-05-15 65+ PNEUMOCOCCAL [facility] Test 09:07:10 VACCINE (2 - PCV) [code = 65+ PNEUMOCOCCAL VACCINE (2 - PCV)] Future Scheduled 2023-05-15 COVID-19 VACCINE (4 - [facility] Test 09:07:10 Moderna series) [code = COVID-19 VACCINE (4 - Moderna series)] Future Scheduled 2023-05-15 INFLUENZA VACCINE (#1) M [facility] Hospital Test 09:07:10 [code = INFLUENZA VACCINE (#1)] Future Scheduled 2023-05-13 Influenza Vaccine (#1[facility]00 [code = Influenza Medical Ce nter Vaccine (#1)] Future Scheduled 2023-05-[address] [facility] Test 00:00:00 (Season Ended) [code = Medic al Center INFLUENZA VACCINE (Season Ended)] Future Scheduled 2023-05-[address] [facility] Test 00:00:00 (Season Ended) [code = Medic al Center INFLUENZA VACCINE (Season Ended)] Future Scheduled 2023-05-[address] [facility] Test 00:00[facility]00 [facility] Cent[facility] r Screening (12+) [code = Tobacco Cessation Counseling and Screening (12+)] Future Scheduled 2022-12-16 65+ PNEUMOCOCCAL [facility] Test 15:38:18 VACCINE (2 - PCV) [code = 65+ PNEUMOCOCCAL VACCINE (2 - PCV)] Future Scheduled 2022-12-16 COVID-19 VACCINE (4 - [facility] Hospital Test 15:38:18 Booster for Moderna series) [code = COVID-19 VACCINE (4 - Booster for Moderna series)] Future Scheduled 2022-12-16 INFLUENZA VACCINE Method ist Hospital Test 15:38:18 [code = INFLUENZA VACCINE] Future Scheduled 2022-12-16 SHINGLES VACCINES (1 Met [facility] Hospital Test 15:38:18 of 2) [code = SHINGLES VACCINES (1 of 2)] Future Scheduled 2022-12-16 65+ PNEUMOCOCCAL Methodi Hospital Test 15:38:18 VACCINE (2 - PCV) [code = 65+ PNEUMOCOCCAL VACCINE (2 - PCV)] Future Scheduled 2022-12-16 COVID-19 VACCINE (4 - Me odi Hospital Test 15:38:18 Booster for Moderna series) [code = COVID-19 VACCINE (4 - Booster for Moderna series)] Future Scheduled 2022-12-16 INFLUENZA VACCINE Method [facility] Hospital Test 15:38:18 [code = INFLUENZA VACCINE] Future Scheduled 2022-12-16 SHINGLES VACCINES (1 Met [facility] Hospital Test 15:38:18 of 2) [code = SHINGLES VACCINES (1 of 2)] Future Scheduled 2022-11-15 SHINGLES VACCINES (1 Met [facility] Hospital Test 12:14:06 of 2) [code = SHINGLES VACCINES (1 of 2)] Future Scheduled 2022-11-15 65+ [facility] 12:14[facility]06 VACCINE (2 - PCV) [code = 65+ PNEUMOCOCCAL VACCINE (2 - PCV)] Future Scheduled 2022-11-15 COVID-19 VACCINE (4 - Me [facility] Hospital Test 12:14:06 Booster for Moderna series) [code = COVID-19 VACCINE (4 - Booster for Moderna series)] Future Scheduled 2022-11-15 INFLUENZA VACCINE Method [facility] Hospital Test 12:14:06 [code = INFLUENZA VACCINE] Future Scheduled 2022-11-15 SHINGLES VACCINES (1 Met [facility] Hospital Test 12:14:06 of 2) [code = SHINGLES VACCINES (1 of 2)] Future Scheduled 2022-11-15 65+ PNEUMOCOCCAL Methodi Hospital Test 12:14:06 VACCINE (2 - PCV) [code = 65+ PNEUMOCOCCAL VACCINE (2 - PCV)] Future Scheduled 2022-11-15 COVID-19 VACCINE (4 - Me [facility] Hospital Test 12:14:06 Booster for Moderna series) [code = COVID-19 VACCINE (4 - Booster for Moderna series)] Future Scheduled 2022-11-15 INFLUENZA VACCINE Method ist Hospital Test 12:14:06 [code = INFLUENZA VACCINE] Future Scheduled 2022-09-12 DEPRESSION SCREENING CHI [...] Future Scheduled 2022-07-15 HEPATITIS B VACCINES Met [facility] Test 15:44:15 (1 of 3 - 3-dose series) [code = HEPATITIS B VACCINES (1 of 3 - 3-dose series)] Future Scheduled 2022-07-15 SHINGLES VACCINES (1 Met [facility] Test 15:44:15 of 2) [code = SHINGLES VACCINES (1 of 2)] Future Scheduled 2022-07-15 65+ PNEUMOCOCCAL Methodi [facility] Test 15:44:15 VACCINE (2 - PCV) [code = 65+ PNEUMOCOCCAL VACCINE (2 - PCV)] Future Scheduled 2022-07-15 COVID-19 VACCINE (4 - [facility] Test 15:44:15 Booster for Moderna series) [code = COVID-19 VACCINE (4 - Booster for Moderna series)] Future Scheduled 2022-07-15 INFLUENZA VACCINE Method is Hospital Test 15:44:15 [code = INFLUENZA VACCINE] Future Scheduled 2022-05-13 INFLUENZA VACCINE (#1) [facility] 00:00[facility]00 [code = INFLUENZA Medical Ce nter VACCINE (#1)] Future Scheduled 2022-05-13 INFLUENZA VACCINE (#1) [facility] 00:00:00 [code = INFLUENZA Medical Ce nter VACCINE (#1)] Future Scheduled 2022-05-13 INFLUENZA VACCINE (#1) [facility] 00:00:00 [code = INFLUENZA Medical Ce nter VACCINE (#1)] Future Scheduled 2022-05-13 INFLUENZA VACCINE (#1) [facility] 00:00:00 [code = INFLUENZA Medical Ce nter VACCINE (#1)] Future Scheduled 2022-05-12 HEPATITIS B VACCINES Met [facility] Hospital Test 06:46:57 (1 of 3 - 3-dose series) [code = HEPATITIS B VACCINES (1 of 3 - 3-dose series)] Future Scheduled 2022-05-12 SHINGLES VACCINES (1 Met [facility] Hospital Test 06:46:57 of 2) [code = SHINGLES VACCINES (1 of 2)] Future Scheduled 2022-05-12 65+ [facility]AL [facility] 06:46:57 VACCINE (2 - PCV) [code = 65+ PNEUMOCOCCAL VACCINE (2 - PCV)] Future Scheduled 2022-05-12 COVID-19 VACCINE (4 - Me [facility] Hospital Test 06:46:57 Booster for Moderna series) [code = COVID-19 VACCINE (4 - Booster for Moderna series)] Future Scheduled 2022-05-12 INFLUENZA VACCINE Method [facility] Hospital Test 06:46:57 [code = INFLUENZA VACCINE] Future Scheduled 2021-09-19 COVID-19 VACCINE (4 - [facility] 00:[facility] Booster for Moderna Medical Center series) [code = COVID-19 VACCINE (4 - Booster for Moderna series)] Future Scheduled 2021-09-19 COVID-19 VACCINE (4 - [facility] 00:00:00 Booster for Moderna Medical Center series) [code = COVID-19 VACCINE (4 - Booster for Moderna series)] Future Scheduled 2021-09-19 COVID-19 VACCINE (4 - [facility] 00:00:00 Booster for Moderna Medical Center series) [code = COVID-19 VACCINE (4 - Booster for Moderna series)] Future Scheduled 2021-09-19 COVID-19 VACCINE (4 - [facility] 00:00:00 Booster for Moderna Medical Center series) [code = COVID-19 VACCINE (4 - [...] SCREENING] Future Scheduled 2021-07-15 COVID-19 VACCINE (4 - [facility] 00:00:00 Booster for Moderna Medical Center series) [code = COVID-19 VACCINE (4 - Booster for Moderna series)] Future Scheduled 2021-07-15 COVID-19 VACCINE (4 - [facility] 00:00:00 Booster for Moderna [facility] series) [code = COVID-19 VACCINE (4 - Booster for Moderna series)] Future Scheduled 2021-07-15 COVID-19 VACCINE (4 - [facility] 00:00:00 Booster for Moderna Medical Center series) [code = COVID-19 VACCINE (4 - [...] Lukes Test 00:00:00 of 2) [code = SHINGLES Medic al Center VACCINES (1 of 2)] Future Scheduled 1990 SHINGLES VACCINES ([address] [facility] Test 00:00:00 of 2) [code = SHINGLES Medic al Center VACCINES (1 of 2)] Future Scheduled 1990 SHINGLES VACCINES ([address] [facility] Test 00:00:00 of 2) [code = SHINGLES Medic al Center VACCINES (1 of 2)] Future Scheduled 1990 SHINGLES VACCINES ([address] [facility] Test 00:00:00 of 2) [code = SHINGLES Medic al Center VACCINES (1 of 2)] Future Scheduled 1990 SHINGLES VACCINES ([address] [facility] Test 00:00:00 of 2) [code = SHINGLES Medic al Center VACCINES (1 of 2)] Future Scheduled 1990 SHINGLES VACCINES ([address] [facility] Test 00:00:00 of 2) [code = SHINGLES Medic al Center VACCINES (1 of 2)] Future Scheduled 1990 SHINGLES VACCINES ([address] [facility] Test 00:00:00 of 2) [code = SHINGLES Medic al Center VACCINES (1 of 2)] Future Scheduled 1952 [...] Type Clinicians Facility Department ID 2022-11-04 Outpatient Antoine STJEFFREY [facility] [id number] Common 16:23:03 Danny [id number] [facility] 2022-09-01 Outpatient Antoine STRAJEEVLC [facility] [id number] Common 13:01:02 Danny [id number] [facility] 2022-01-27 Outpatient [facility] Surgery [id number] [facility] 08:47:36 EMMA 2021-07-12 Emergency [facility] [id number] [facility] 2023-05-24 Emergency X [facility] ERT [id number] Univers 19:57:00 00:05:00 JORDON [facility] 2023-05-23 2023-05-24 [facility] [id number] Univers 19:57:00 00:05:00 Jordon SEPULVEDA [id number] i ty [facility] [id number] [facility] [phone] [facility] [address] 2023-03-20 2023-03-21 Emergency X [facility] ERT [id number] Univers 21:19:00 00:44:00 MONA [facility] 2023-03-20 2023-03-21 Emergency [facility] [id number] Univers 21:19:00 00:44:00 Moan SEPULVEDA [id number] ity [facility] [id number] [facility] [id number] [facility] [address] 2022-10-14 2022-10-14 (TEL) STLMLC STLMLC [id number] Co mmon 00:00:00 00:00:00 [facility] 2022-10-13 2022-10-13 OFFICE STLMLC STLMLC [id number] Co mmon 00:00:00 00:00:00 VISIT Spirit ESTAB PT - CHI LEVEL 2 [facility] 2022-10-06 2022-10-06 (PROC) STLMLC STLMLC [id number] Co mmon 00:00:00 00:00:00 Procedure Spir it [facility] 2022-09-29 2022-09-29 (PROC) STLMLC STLMLC [id number] Co mmon 00:00:00 00:00:00 Procedure Spir it [facility] 2022-09-19 2022-09-19 (TEL) STLMLC STLMLC [id number] Co mmon 00:00:00 00:00:00 [facility] 2022-09-15 2022-09-15 (PROC) STLMLC STLMLC [id number] Co mmon 00:00:00 00:00:00 Procedure Spir it [facility] 2022-09-08 2022-09-08 (PROC) STLMLC STLMLC [id number] Co mmon 00:00:00 00:00:00 Procedure Spir it - [facility] 2022-09-01 2022-09-01 OFFICE STLMLC STLMLC [id number] Co mmon 00:00:00 00:00:00 VISIT EST Spir it PT LEVEL 3 - [facility] 2022-07-12 2022-07-12 Refill Ondo, 1.2.840.1 [id number] Methodi 00:00:00 00:00:00 Dewayne 74844.1.1 800 Daren 3.430.2.7 Hospit a .3.147393 l .8 2022-07-12 2022-07-12 Refill Ondo, 1.2.840.1 [id number] Methodi 00:00:00 00:00:[address] 3.430.2.7 Hospit a .3.993975 l .8 2022-06-01 2022-06-01 Outpatient Brandon GUSMAN [facility] [id number] Univers 18:40:00 19:08:11 [facility] 2022-06-01 2022-06-01 Urgent Fuad Lam [facility] [id number] Univers 18:40:00 19:08:11 [id number] [facility] [id number] Too as SONIDO?BLEA [id number] [address] MEDICAL OFFICE BUILDING 2022-05-03 2022-05-03 Outpatient AMBIKA MENDEZ [facility] [id number] [facility] 14:56:33 23:59:00 H[place]ET[place] 2022-05-03 2022-05-03 [facility] [id number] 08:00:00 23:59:00 Encounter [facility] 2022-05-03 2022-05-03 Outpatient AMBIKA MENDEZ [facility] Surgery [id number] SLE 06:36:00 10:35:00 H[place]ET[place] 2022-05-03 2022-05-03 [facility] AMBIKA Mendez [facility] [id number] 06:36:00 10:35:00 Encounter [facility] 2022-05-03 2022-05-[address] [facility] [id number] 07:30:00 08:00:00 Surgeon [facility] 2022-05-03 2022-05-03 Orders Aleksandra [facility] [id number] 00:00:00 00:00:00 Only Diana Castañeda [facility] 2022-05-03 2022-05-03 Travel [facility] [id number] [facility] 00:[facility]00 00:00:00 [facility] 2022-04-21 2022-04-21 Outside [facility] [id number] 00:00:00 00:00:00 Orders [facility] 2022-01-12 2022-01-12 Ambulatory nullFlavo [facility] [id number] Memoria 20:30:00 20:30:00 Pre-Reg r Urology 01 l Associates Sunita nn Time Share 2022-01-12 2022-01-12 Ambulatory nullFlavo [facility] [id number] Memoria 20:30:00 20:30:00 Pre-Reg r Urology l Yazan Valladaresa nn Time Share 2022-01-12 2022-01-12 Outpatient MHIE VALERIA [id number] Memoria 15:30:00 15:30:00 01 brant Yoo 2022-01-12 2022-01-12 Outpatient JIMY Anderson MG [id number] 15:30:00 15:30:00 Jazzy L 2022-01-03 2022-01-[address] [facility] Urology [id number] [facility] 20:21:00 15:56:00 2022-01-03 2022-01-05 Hospital ER Geni Herrera Brit [facility] [id number] 20:21:00 15:56:00 Encounter Fidel Gonzalez [facility] 2022-01-03 2022-01-03 Travel [facility] [id number] [facility] 00:[facility] 00:00:00 [facility] 2021-12-21 2021-12-22 Outpatient nullFlavo [facility] Multi 41 [id number] Memoria 18:35:00 04:59:59 [facility] 2021-12-21 2021-12-22 Outpatient nullFlavo [facility] 41 [id number] Memoria 18:35:00 04:59:59 [facility] 2021-12-21 2021-12-21 Outpatient JustinJIMY MG [id number] 13:35:00 23:59:59 Ajzzy L 00 2021-12-21 2021-12-21 Outpatient MHIE GIGIIE [id number] Memoria 13:35:00 13:35:00 00 l [place] 2021-12-21 2021-12-21 Telephone Lu[facility] [id number] Univers 00:00:00 00:00:00 [facility] [id number] ity [facility] [id number] Too as SONIDO?BLEA [id number] Tn dical KNEY [address] [facility] [place] 2021-12-12 2021-12-13 Observatio nullFlavo [facility] [id number] Memoria 21:21:00 01:15:00 n r Fredo 92 l [facility] 2021-12-12 2021-12-13 Observatio nullFlavo [facility] [id number] Memoria 21:21:00 01:15:00 n r [place] 92 l [facility] 2021-12-12 2021-12-12 Outpatient Ajibaadonay, [facility] [address] [id number] 16:21:00 20:15:00 Zach [address] [facility] 2021-12-02 2021-12-02 Outpatient R CLARY [facility] [id number] Univers 13:00:00 13:45:36 BREANNA ewing [facility] 2021-12-02 2021-12-02 Ancillary Saul Weinberg [facility] 1.2.840. 114 [id number] Univers 13:00:00 13:45:36 Visit Breanna Means 350.1.13.10 it[place] of [place] [phone] Tn dical NAL 179 [facility] 2021-11-27 2021-11-27 Ancillary Lorri Weinberg [facility] 1.2.840 .114 [id number] Univers 13:00:00 13:40:39 Visit Breanna Means 350.1.13.10 ity [facility] [place].2.[place] [phone] Tn dical NAL 179 [facility] 2021-11-25 2021-11-25 Ancillary Lorri Weinberg [facility] 1.2.840 .114 [id number] Univers 08:00:00 08:45:00 Visit Clary Breanna Brant SEPULVEDA 350.1.13.10 ity of [place] [phone] Tn dical NAL 179 [facility] 2021-11-19 2021-11-19 Ancillary Elena Jaffe [facility] 1.2.84 0.114 [id number] Univers 13:00:00 13:52:36 Visit Breanna Means COCO 350.1.13.10 ity [facility] 4.2.7[place]2.[place] [phone] Tn dical NAL 179 [facility] 2021-11-09 2021-11-09 Orders Doctor SAM 1.2.840.114 [id number] Univers 00:00:00 00:00:00 Only Unassigned, ROSI 350.1.13.10 ity of [place] [facility] 4.2.7.2.686 Too as [phone] [address] 2021-09-13 2021-09-13 Outpatient R [facility] [id number] Univers 14:45:00 14:45:00 ity of [facility] 2021-07-24 2021-07-24 Manuela Staley [facility] 1.2.840.114 [id number] [facility] 00:00:00 00:00:00 Jason SEPULVEDA 350.1.13.10 ity of [place] [phone] Tn dical NAL 092 [facility] 2021-07-09 2021-07-09 [facility] 1.2.840.1 [id number] [place] 00:00:00 00:00:00 Encounter DEWAYNE 81964.1.1 [address] .3.827813 .8 2021-07-09 2021-07-09 Travel 1.2.840.1 1.2.272.001 2339 [id number] Methodi 00:00:00 00:00:[address] 3.430.2.7 0.2.7.3.698 Ho spita .3.864923 084.8 l .8 2021-07-07 2021-07-07 Office Reba, 1.2.840.1 [id number] 4089 Methodi 13:15:00 16:08:39 Visit Dewayne 86508.1.[address] [facility] 3.430.2.7 Hospit a .3.794230 l .8 2021-07-07 2021-07-07 Travel 1.2.840.1 1.2.772.606 2693 [id number] Methodi 00:00:00 00:00:[address] 3.430.2.7 0.2.7.3.698 Ho spita .3.304460 084.8 l .8 2021-06-15 2021-06-15 Telephone Luís [facility] 1.2.840.114 [id number] [facility] 00:00:00 00:00:00 [facility] 350.1.13.10 [facility] [place] 4.2.7.2.686 Too as Sonido?Blea [phone] [address] Office Building 2021-06-12 2021-06-12 Travel 1.2.840.1 1.2.184.076 8272 164058 Methodi 00:00:00 00:00:[address] 3.430.2.7 0.2.7.3.698 Ho spita .3.423175 084.8 l .8 2021-06-11 2021-06-11 Telephone Reba, 1.2.840.1 [id number] 2100 [id number] Methodi 00:00:00 00:00:[address] [facility] 3.430.2.7 Hospit a .3.391695 l .8 2021-05-20 2021-05-20 Imm/Inj Nurse, Adc Pob Immunization [facility] 1.2.840.114 [id number] Univers 13:10:10 13:10:33 Visit Anuel Galarza 350.1.13 .10 ity of [place] [phone] Tn dical nal 421 [facility] 2021-05-20 2021-05-20 Outpatient R MICHELLE [facility] [id number] Univers 13:10:00 13:10:00 ANUEL ewing [facility] 2021-01-29 2021-01-29 Outpatient Brandon MEANS [facility] [id number] Univers 14:00:00 14:00:00 BREANNA ewing [facility] 2021-01-23 2021-01-23 Orders Doctor SAM 1.2.840.114 [id number] Univers 00:00:00 00:00:00 Only Unassigned, ROSI 350.1.13.10 ity of [place] [facility] 4.2.7.2.686 Too as [phone] [address] 2021-01-21 2021-01-21 Ancillary Lorri Weinberg [facility] 1.2.840 .114 [id number] Univers 14:01:28 14:41:28 Visit Breanna Means 350.1.13.10 ity of [place] [phone] Tn dical nal 179 [facility] 2021-01-21 2021-01-21 Telephone Luís [facility] 1.2.840.114 [id number] Univers 00:00:00 00:00:00 Jason Sepulveda 350.1.13.10 it[place] of [place] [phone] Me dical nal 092 [facility] 2021-01-19 2021-01-19 Ancillary Varsha Bey [facility] 1.2.840. 114 [id number] Univers 14:00:13 14:41:16 Visit Breanna Means 350.1.13.10 ity of [place] [phone] Tn dical nal 179 [facility] 2021-01-12 2021-01-12 Ancillary Samantha Brantley [facility] 1.2.840. 114 [id number] Univers 11:08:23 11:48:23 Visit Breanna Means 350.1.13.10 ity of [place] [phone] Tn dical nal 179 [facility] 2021-01-06 2021-01-06 Emergency Rodriguez, [facility] 1.2.001.378 [id number] Univers 08:31:00 13:37:00 Riccoramiro Sepulveda 350.1.13.10 i ty of [place]2.[place].2.[place] [phone] [facility] [address] 2021-01-06 2021-01-06 Orders Doctor SAM 1.2.840.114 [id number] [facility] 00:00:00 00:00:00 Only Unassigned, ROSI 350.1.13.10 ity of [place] [facility] 4.2.7.2.686 Too as [phone] [facility] [address] 2021-01-01 2021-01-01 Ancillary Varsha Bey [facility] 1.2.840. 114 [id number] Univers 15:17:58 16:03:58 Visit Breanna Means 350.1.13.10 it[place] of [place] [phone] Tn dical nal 179 [facility] 2020-12-30 2020-12-30 Ancillary Varsha Bey [facility] 1.2.840. 114 [id number] Univers 15:11:48 16:47:07 Visit Breanna Means 350.1.13.10 ity of [place] [phone] Tn dical nal 179 [facility] 2020-12-25 2020-12-26 Ancillary Varsha Bey [facility] 1.2.840. 114 [id number] Univers 15:13:25 08:42:39 Visit Breanna Means 350.1.13.10 it[place] of [place] [phone] Tn dical nal 179 [facility] 2020-12-23 2020-12-23 Ancillary Shirley Banks [facility] 1 .2.840.114 [id number] Univers 11:09:48 12:04:08 Visit Breanna Means 350.1.13.10 it[place] of [place] [phone] Tn dical nal 179 [facility] 2020-12-18 2020-12-18 Ancillary Shirley Banks [facility] 1 .2.840.114 [id number] [facility] 09:53:00 10:42:16 Visit Breanna Means 350.1.13.10 it[place] of [place] [phone] Tn dical nal 179 [facility] 2020-12-18 2020-12-18 [facility] [id number] [facility] 10:20:00 10:20:00 BREANNA itashtyn [facility] 2020-12-18 2020-12-18 Orders Doctor SAM 1.2.840.114 [id number] Univers 00:00:00 00:00:00 Only Unassigned, ROSI 350.1.13.10 ity of [place] [facility] 4.2.7.2.686 Too as [phone] [address] 2020-12-10 2020-12-10 Telephone [facility] 1.2.901.920 [id number] Univers 00:00:00 00:00:00 Brendan Sepulveda 350.1.13.10 ity of [place] [phone] Tn dical nal 059 [facility] 2020-12-08 2020-12-08 Orders Doctor SAM 1.2.840.114 [id number] Univers 00:00:00 00:00:00 Only Unassigned, ROSI 350.1.13.10 ity of [place] [facility] 4.2.7.2.686 Too as [phone] [address] 2020-12-04 2020-12-04 Telephone Luís, [facility] 1.2.840.114 [id number] Univers 00:00:00 00:00:00 Jason Teran Coco 350.1.13.10 ity of [place] [phone] [address] 2020-11-24 2020-11-24 Office Luís [facility] 1.2.840.114 [id number] Univers 15:26:22 16:30:45 Visit Jason [place] 350.1.13.10 it[place] of [place] [phone] [address] 2020-11-24 2020-11-24 Outpatient Brandon LUÍSJASON Castañeda [facility] [id number] Univers 15:40:00 15:40:00 LUÍS JASON [facility] 2020-11-20 2020-11-20 Outpatient JASON PARIS [facility] [id number] Univers 13:00:00 13:00:00 LUÍSJASON Castañeda [facility] 2020-11-04 2020-11-04 [facility] 1.2.840.114 [id number] Univers 15:59:56 17:20:37 Visit Jason Sepulveda 350.1.13.10 it[place] of [place] [phone] [address] 2020-11-04 2020-11-04 Outpatient Brandon LUÍSJASON [facility] [id number] Univers 16:00:00 16:00:00 LUÍSJASON Castañeda [facility] 2020-10-15 2020-10-15 Outpatient Brandon JENKINS [facility] [id number] Univers 11:10:00 11:10:00 ASTRID ashtyn [facility] 2020-10-10 2020-10-10 Office Luís [facility] 1.2.840.114 [id number] Univers 10:45:46 14:13:12 Visit Jason Sepulveda 350.1.13.10 it[place] of [place] [phone] Tn dical nal 092 [facility] 2020-10-10 2020-10-10 Outpatient JASON PARIS [facility] [id number] Univers 11:00:00 11:00:00 JASON STALEY [facility] 2020-10-08 2020-10-08 [facility] 1.2.160.556 [id number] Univers 09:48:22 23:59:00 Encounter Jason Gene SPECIALTY 350.1.13.10 [place] [phone] Tn migelceci FROILANAshtyn [address] [place] [address] 2020-10-08 2020-10-08 Outpatient JASON PARIS [facility] [id number] Univers 10:00:00 10:00:00 JASON STALEY [facility] 2020-10-08 2020-10-08 [facility] 1.2.094.260 [id number] Univers 09:47:36 09:47:36 Encounter Jason Gene SPECIALTY 350.1.13.10 [place] [phone] Tn dicceci MCGOVERNAshtyn [address] [place] [address] 2020-10-08 2020-10-08 [facility] 1.2.552.637 [id number] Univers 09:46:50 09:46:50 Encounter Jason Gene SPECIALTY 350.1.13.10 it[place] [phone] Tn dical FROILANY [address] [place] [address] 2020-09-30 2020-09-30 [facility] 1.2.840.114 [id number] Univers 00:00:00 00:00:00 Jason Teran [place] 350.1.13.10 it[place] of [place] [phone] Tn dical nal 092 [facility] 2020-09-19 2020-09-19 [facility] 1.2.840.114 [id number] Univers 14:31:34 15:40:16 Visit Jason Sepulveda 350.1.13.10 it[place] of [place] [phone] Tn dical nal 092 [facility] 2020-09-19 2020-09-19 Outpatient Brandon LUÍSJASON Castañeda [facility] [id number] Univers 14:40:00 14:40:00 LUÍSJASON Castañeda ashtyn [facility] 2020-09-17 2020-09-17 Outpatient Brandon JENKINS [facility] [id number] Univers 10:50:00 10:50:00 ASTRID [facility] 2020-09-17 2020-09-17 [facility] 1.2.840.114 [id number] Univers 00:00:00 00:00:00 Brendan Sepulveda 350.1.13.10 it[place] of [place] [phone] Tn dical nal 059 [facility] 2020-09-15 2020-09-15 Orders Doctor SAM 1.2.840.114 [id number] Univers 00:00:00 00:00:00 Only Unassigned, ROSI 350.1.13.10 ity of [place] [facility] 4.2.7.2.686 Too as [phone] [address] 2020-09-10 2020-09-10 Telephone Luís [facility] 1.2.840.114 [id number] Univers 00:00:00 00:00:00 Jason Sepulveda 350.1.13.10 it[place] of [place] [phone] Tn dical nal 092 [facility] 2020-09-09 2020-09-09 Materials Handler 2, Adc Lab [facility] 1.2.840.114 [id number] Univers 10:13:23 10:28:23 Visit Luís Jason Sepulveda 350.1.13 .10 it[place] of [place] [phone] Tn dical nal 353 [facility] 2020-09-09 2020-09-09 Outpatient R LUÍSJASON MONTES [facility] [id number] Univers 10:15:00 10:15:00 LUÍSJASON Castañeda itashtyn [facility] 2020-09-08 2020-09-08 Office Luís [facility] 1.2.840.114 [id number] Univers 11:02:00 12:00:27 Visit Jason Sepulveda 350.1.13.10 it[place] of [place] [phone] Tn dical nal 092 [facility] 2020-09-08 2020-09-08 Outpatient R LUÍSJASON Castañeda [facility] [id number] Univers 11:00:00 11:00:00 LUÍS, JASON [facility] 2020-08-28 2020-08-28 [facility] 1.840.114 [id number] Univers 00:00:00 00:00:00 Brendan Sepulveda 350.1.13.10 it[place] of [place] [phone] Tn dical nal 059 [facility] 2020-08-20 2020-08-20 Ancillary Saul Weinberg [facility] 1.840. 114 [id number] Univers 14:56:11 15:36:11 Visit Breanna Means 350.1.13.10 it[place] of [place]2.[place] [phone] Tn dical nal 179 [facility] 2020-08-20 2020-08-20 [facility] [id number] Univers 15:00:00 15:00:00 BREANNA ewing [facility] 2020-08-06 2020-08-06 Telephone Luís [facility] .840.114 [id number] Univers 00:00:00 00:00:00 Jason Sepulveda 350.1.13.10 [place] of [place] [phone] Tn dical nal 092 [facility] 2020-08-06 2020-08-06 Orders Doctor SAM 1.0.114 [id number] Univers 00:00:00 00:00:00 Only Unassigned, ROSI 350.1.13.10 ity of [place] [facility] 4.2.7.2.686 Too as [phone] [address] 2020-08-05 2020-08-05 Ancillary Saul Weinberg [facility] 1.2.840. 114 [id number] Univers 16:31:08 17:11:08 Visit Breanna Means 350.1.13.10 it[place] of [place] [phone] Tn dical nal 179 [facility] 2020-07-29 2020-07-29 Ancillary Saul Weinberg [facility] 1.2.840. 114 [id number] Univers 15:31:18 16:11:18 Visit Breanna Means 350.1.13.10 it[place] of [place] [phone] Tn dicok nal 179 [facility] 2020-07-28 2020-07-28 Outpatient R RFAAEL [facility] [id number] [facility] 11:20:00 11:20:00 BRENDAN itashtyn o f [facility] 2020-07-23 2020-07-23 Orders Doctor SAM 1.2.840.114 [id number] Univers 00:00:00 00:00:00 Only Unassigned, ROSI 350.1.13.10 ity of [place] [facility] 4.2.7.2.686 Too as [phone] [address] 2020-07-22 2020-07-22 Ancillary Saul Weinberg [facility] 1.2.840. 114 [id number] Univers 14:59:34 15:39:34 Visit Breanna Means 350.1.13.10 it[place] of [place] [phone] Tn dical nal 179 [facility] 2020-07-15 2020-07-15 Ancillary Lenard Lorri Daley [facility] 1.2.840 .114 [id number] Univers 14:30:20 15:10:20 Visit Breanna Means 350.1.13.10 it[place] of [place] [phone] Me dical nal 179 [facility] 2020-07-15 2020-07-15 Outpatient R CLARY [facility] [id number] Univers 14:40:00 14:40:00 BREANNA ity of [facility] 2020-07-11 2020-07-11 Manuela Hall [facility] 1.2.840.114 [id number] Univers 00:00:00 00:00:00 Brendan Coco 350.1.13.10 it[place] of [place] [phone] Me dical nal 059 [facility] 2020-07-10 2020-07-10 Ancillary Shirley Banks [facility] 1 .2.840.114 [id number] Univers 13:40:27 14:20:27 Visit Breanna Means 350.1.13.10 it[place] of [place].2.[place] [phone] Me dical nal 179 [facility] 2020-07-09 2020-07-09 Ancillary FerchoRekhaSamantha [facility] 1.2.840. 114 [id number] Univers 10:32:38 11:12:38 Visit Breanna Means 350.1.13.10 it[place] of [place].2.[place] [phone] Me dical nal 179 [facility] 2020-07-09 2020-07-09 Outpatient R [facility] [id number] Univers 10:40:00 10:40:00 ity of [facility] 2020-07-04 2020-07-04 Ancillary Jagdeep Elizabeth Shirley [facility] 1 .2.840.114 [id number] Univers 11:16:46 11:56:46 Visit Breanna Means 350.1.13.10 it[place] of [place] [phone] Me dical nal 179 [facility] 2020-06-26 2020-06-26 Ancillary Lorri Weinberg [facility] 1.2.840 .114 [id number] Univers 12:03:21 12:43:21 Visit Breanna Means 350.1.13.10 it[place] of [place].2.[place] [phone] Tn dical nal 179 [facility] 2020-06-26 2020-06-26 Manuela Hall [facility] 1.2.840.[id number] [place] [address] 00:00:00 00:00:00 Brendan Sepulveda 350.1.13.10 it[place] of [place].2.[place] [phone] Tn dical nal 059 [facility] 2020-06-24 2020-06-24 Ancillary Varsha Bey [facility] 1.2.840. 114 [id number] Univers 11:37:06 12:17:06 Visit Breanna Means 350.1.13.10 it[place] of [place].2.[place] [phone] Tn dical nal 179 [facility] 2020-06-19 2020-06-19 Ancillary Shirley Banks [facility] 1 .2.840.114 [id number] Univers 11:29:43 14:07:55 Visit Breanna Means 350.1.13.10 it[place] of [place].2.[place] [phone] Tn dical nal 179 [facility] 2020-06-19 2020-06-19 Outpatient R [facility] [id number] Univers 11:20:00 11:20:00 ity of [facility] 2020-06-17 2020-06-17 Ancillary Varsha Bey [facility] 1.2.840. 114 [id number] Univers 11:24:28 12:04:28 Visit Breanna Means 350.1.13.10 it[place] of [place].2.[place] [phone] Tn dical nal 179 [facility] 2020-06-13 2020-06-13 Orders Doctor VARGAS 1.2.840.114 [id number] Univers 00:00:00 00:00:00 Only Unassigned, ROSI 350.1.13.10 ity of [place] [facility] 4.2.7.2.686 Too as [phone] [facility] [address] 2020-06-11 2020-06-11 Ancillary Shirley Banks [facility] 1 .2.840.114 [id number] Univers 14:07:48 16:06:14 Visit Breanna Means 350.1.13.10 it[place] of [place].2.[place] [phone] Tn dical nal 179 [facility] 2020-06-11 2020-06-11 [facility] [id number] Univers 14:20:00 14:20:00 BREANNA ity [facility] 2020-05-05 2020-05-05 Telephone Rafael [facility] 1.2.539.780 [id number] Univers 00:00:00 00:00:00 Brendan Sepulveda 350.1.13.10 it[place] of [place] [phone] Tn dical nal 059 [facility] 2020-05-03 2020-05-03 Nurse SAM Figueredo 1.2.840.114 [id number] Univers 00:00:00 00:00:00 Triage Amie ARANDA 350.1.13.10 it y of HOSPITAL 4.2.7.2.686 Too as [phone] [facility] [address] 2020-04-10 2020-04-10 Ancillary Shirley Banks [facility] 1 .2.840.114 [id number] Univers 15:27:41 16:07:41 Visit Breanna Means 350.1.13.10 it[place] of [place] [phone] Tn dical nal 179 [facility] 2020-04-08 2020-04-08 Ancillary Lorri Weinberg Edi [facility] 1.2.840 .114 [id number] Univers 15:29:47 16:09:47 Visit Breanna Means 350.1.13.10 it[place] of [place].2.[place] [phone] Tn dical nal 179 [facility] 2020-04-04 2020-04-04 Ancillary Lorri Weinberg [facility] 1.2.840 .114 [id number] Univers 14:18:04 14:58:04 Visit Breanna Means 350.1.13.10 it[place] of [place].2.[place] [phone] Tn dical nal 179 [facility] 2020-04-03 2020-04-03 [facility] 1.2.840.114 [id number] Univers 00:00:00 00:00:00 Brendan Sepulveda 350.1.13.10 it[place] of [place].2.[place] [phone] Tn dical nal 059 [facility] 2020-04-02 2020-04-02 Ancillary Lorri Weinberg [facility] 1.2.840 .114 [id number] Univers 14:59:32 15:39:32 Visit Breanna Means 350.1.13.10 it[place] of [place].2.[place] [phone] Tn dical nal 179 [facility] 2020-03-26 2020-03-26 Sg Staley [facility] 1.2.840.114 [id number] Univers 00:00:00 00:00:00 Jason Sepulveda 350.1.13.10 ity of [place].2.[place] [phone] Tn dical nal 092 [facility] 2020-03-20 2020-03-20 Ancillary Lenard Saul Patrick [facility] 1.2.840. 114 [id number] Univers 15:27:33 16:07:33 Visit Breanna Means 350.1.13.10 it[place] of [place].2.[place] [phone] Tn dical nal 179 [facility] 2020-03-13 2020-03-13 Outpatient R [facility] [id number] Univers 15:40:00 15:40:00 ity of [facility] 2020-03-11 2020-03-11 Ancillary Saul Weinberg [facility] 1.2.840. 114 [id number] Univers 15:30:10 16:10:10 Visit Breanna Means 350.1.13.10 it[place] of [place].2.[place] [phone] Tn dical nal 179 [facility] 2020-03-06 2020-03-06 Ancillary Lorri Weinberg [facility] 1.2.840 .114 [id number] Univers 15:36:47 16:16:47 Visit Breanna Means 350.1.13.10 it[place] of [place].2.[place] [phone] Tn dical nal 179 [facility] 2020-03-03 2020-03-03 Ancillary Saul Weinberg [facility] 1.2.840. 114 [id number] Univers 15:41:05 16:21:05 Visit Breanna Means 350.1.13.10 it[place] of [place].2.[place] [phone] Tn dical nal 179 [facility] 2020-02-27 2020-02-28 Ancillary Saul Weinberg [facility] 1.2.840. 114 [id number] Univers 14:57:04 13:44:25 Visit Breanna Means 350.1.13.10 it[place] of [place].2.[place] [phone] Tn dical nal 179 [facility] 2020-02-21 2020-02-21 Ancillary Saul Weinberg [facility] 1.2.840. 114 [id number] Univers 14:15:09 14:55:09 Visit Breanna Means 350.1.13.10 it[place] of [place].2.[place] [phone] Tn dical nal 179 [facility] 2020-02-18 2020-02-18 Ancillary Saul Weinberg [facility] 1.2.840. 114 [id number] Univers 14:10:56 14:50:56 Visit Breanna Means [id number] [place] [phone] Tn dical nal 179 [facility] 2020-02-13 2020-02-13 Ancillary Shirley Banks [facility] 1 .2.840.114 [id number] Univers 13:40:00 14:24:13 Visit Breanna Means [id number] [place]2.[place] [phone] Tn dical nal 179 [facility] 2020-02-11 2020-02-11 Outpatient R [facility] [id number] Univers 15:20:00 15:20:00 BREANNA ity of [facility] 2020-02-08 2020-02-08 Ancillary Shirley Banks [facility] 1 .2.840.114 [id number] Univers 13:04:37 14:04:37 Visit Breanna Means 350.1.13.10 [place]2.[place] [phone] Tn dical nal 179 [facility] 2020-02-06 2020-02-06 Ancillary Lorri Weinberg [facility] 1.2.840 .114 [id number] Univers 13:02:54 14:02:54 Visit Breanna Means 350.1.13.10 [place]2.[place] [phone] Tn dical nal 179 [facility] 2020-02-06 2020-02-06 Telephone Clary [facility] 1.2.840.114 [id number] Univers 00:00:00 00:00:00 [facility] 350.1.13.10 it y of Surgical 4.2.7.2.686 Too as Specialti [phone] Tn dical es 198 [facility] 2020-02-05 2020-02-05 Telephone Rafael [facility] 1.2.413.323 [id number] Univers 00:00:00 00:00:00 Brendan Sepulveda 350.1.13.10 [place] [phone] Tn dical nal 059 [facility] 2020-01-31 2020-01-31 Office Clary [facility] 1.2.208.451 [id number] Univers 13:13:50 14:01:29 Visit Breanna Becker 350.1.13.10 it y of Surgical 4.2.7.2.686 Too as Special [phone] Tn dical es 198 [facility] 2020-01-31 2020-01-31 [facility] 1.2.840.114 [id number] Univers 08:43:00 08:43:00 Encounter Chris Warfield 350.1.13.10 ity of [place] 4.2.7.2.686 [facility] [phone] [address] 2020-01-31 2020-01-31 [facility] 1.2.840.114 [id number] Univers 08:43:00 08:43:00 Encounter Chirs Warfield 350.1.13.10 ity of [place] 4.2.7.2.686 [facility] [phone] [address] 2020-01-31 2020-01-31 Outpatient R [facility] [id number] Univers 08:42:11 08:42:00 CHRIS ity of [facility] 2020-01-31 2020-01-31 [facility] 1.2.840.114 [id number] Univers 08:42:00 08:42:00 Encounter Chris Warfield 350.1.13.10 it[place] of [place] 4.2.7.2.686 [facility] [phone] [address] 2020-01-31 2020-01-31 [facility] 1.2.840.114 [id number] Univers 08:42:00 08:42:00 Encounter Chris [place] 350.1.13.10 ity of [place] 4.2.7.2.686 [facility] [phone] [address] 2020-01-31 2020-01-31 [facility]phone [facility] 1.2.899.166 [id number] Univers 00:00:00 00:00:00 Gene Mann [place] 350.1.13.10 [place] [phone] T[place] dical nal 059 [facility] 2020-01-29 2020-01-29 Ancillary Jagdeep Shirley Elizabeth [facility] 1 .2.840.114 [id number] Univers 13:41:12 14:41:12 Visit Breanna Means 350.1.13.10 [place] [phone] Tn dical nal 179 [facility] 2020-01-29 2020-01-29 Outpatient R CLARY [facility] [id number] Univers 13:00:00 13:00:00 BREANNA itashtyn [facility] 2020-01-21 2020-01-21 [facility] [id number] Univers 11:40:00 11:40:00 BRENDAN ewing o f [facility] 2020-01-21 2020-01-21 Telemedici [facility] 1.2.840.114 [id number] Univers 08:09:01 08:29:01 ne Visit Brendan Sepulveda 350.1.13.10 [place] [phone] Tn dical nal 059 [facility] 2020-01-18 2020-01-18 Office [facility] 1.2.840.114 [id number] Univers 09:02:21 09:34:47 Visit [facility] 350.1.13.10 it y of Surgical 4.2.7.2.686 Too as Specialti [phone] Tn dical es 198 [facility] 2020-01-18 2020-01-18 [facility]patient [facility] [id number] Univers 09:15:00 09:15:00 MARIANA ity [facility] 2020-01-13 2020-01-13 Refill [facility] 1.2.840.114 [id number] Univers 00:00:00 00:00:00 Brendan Sepulveda 350.1.13.10 [place] [phone] Tn dical nal 059 [facility] 2020-01-03 2020-01-03 [facility] 1.2.840.114 [id number] Univers 00:00:00 00:00:00 Brendan D[place]on 350.1.13.10 [place] [phone] Tn dicok nal 9 [facility] 2019-12-20 2019-12-20 Refheather [facility]UN[facility] 1.2.840.114 [id number] Univers 00:00:00 00:00:00 Brendan [place] 350.1.13.10 [place] [phone] [facility] nal [address] [place] [address] 2019-12-05 2019-12-05 Telephone [facility] 1.2.840.114 [id number] Univers 00:00:00 00:00:00 Jason Sepulveda 350.1.13.10 [place] [phone] [facility] 092 [facility] 2019-12-04 2019-12-04 Outpatient R AUBREY [facility] [id number] Univers 11:00:00 11:00:00 CHRIS ity of [facility] 2019-12-04 2019-12-04 Telemedici [facility] 1.2.840.114 [id number] Univers 10:20:22 10:40:22 ne Visit Chris Coco 350.1.13.10 [place] [phone] [address] 2019-12-04 2019-12-04 Telephone [facility] 1.2.931.083 [id number] Univers 00:00:00 00:00:00 Chris Warfield 350.1.13.10 i [place] [phone] Tn dicok nal 059 [facility] 2019-11-29 2019-11-29 Outpatient R JASON STALEY [facility] [id number] Univers 12:08:34 23:59:00 JASON STALEY itashtyn of [facility] 2019-11-29 2019-11-29 [facility] 1.2.669.419 [id number] Univers 12:08:00 23:59:00 Encounter Jason Jeffry Sepulveda 350.1.13.10 [place].2.[place] [phone] [facility] [address] 2019-10-09 2019-11-27 Office [facility] 1.2.840.114 [id number] Univers 14:55:57 08:46:19 Visit Brendan Sepulveda 350.1.13.10 [place] [phone] Tn dical nal 059 [facility] 2019-11-22 2019-11-22 Refill [facility] 1.2.840.114 [id number] Univers 00:00:00 00:00:00 Brendan Sepulveda 350.1.13.10 [place] [phone] Tn dical nal 059 [facility] 2019-11-19 2019-11-19 Ancillary Jagdeep Elizabeth Shirley [facility] 1 .2.840.114 [id number] Univers 14:02:31 14:42:31 Visit Breanna Means 350.1.13.10 [place] [phone] Tn dical nal 179 [facility] 2019-11-15 2019-11-15 Outpatient Brandon MEANS [facility] [id number] Univers 11:20:00 11:20:00 BREANNA ewing of [facility] 2019-11-08 2019-11-08 Ancillary Jagdeep Elizabeth Shirley [facility] 1 .2.840.114 [id number] Univers 11:11:28 11:47:28 Visit Breanna Means 350.1.13.10 [place] [phone] Tn dical nal 179 [facility] 2019-10-19 2019-11-07 Ancillary Lorri Weinberg [facility] 1.2.840 .114 [id number] Univers 10:14:18 08:52:42 Visit Breanna Means 350.1.13.10 [place] [phone] Tn dical nal 179 [facility] 2019-11-06 2019-11-06 Ancillary Jagdeep Shirley Elizabeth [facility] 1 .2.840.114 [id number] Univers 10:33:10 11:13:10 Visit Breanna Means 350.1.13.10 [place] [phone] Tn dical nal 179 [facility] 2019-11-06 2019-11-06 [facility] [id number] Univers 10:40:00 10:40:00 BREANNA ity of [facility] 2019-11-05 2019-11-05 Refheather [facility]UN[facility] 1.2.840.114 [id number] Univers 00:00:00 00:00:00 Brendan Sepulveda 350.1.13.10 [place] [phone] Tn dicok nal 059 [facility] 2019-11-05 2019-11-05 Refheather Hall [facility] 1.2.840.114 [id number] Univers 00:00:00 00:00:00 Brendan [place] 350.1.13.10 [place] [phone] Tn dical nal 059 [facility] 2019-11-01 2019-11-01 Ancillary Shirley Banks [facility] 1 .2.840.114 [id number] Univers 11:06:32 11:46:32 Visit Breanna Means 350.1.13.10 [place] [phone] Tn dical nal 179 [facility] 2019-10-29 2019-10-29 Ancillary Shirley Banks [facility] 1 .2.840.114 [id number] Univers 11:11:05 11:51:05 Visit Breanna Means 350.1.13.10 it[place] [phone] Tn dical nal 179 [facility] 2019-10-26 2019-10-26 Ancillary Lorri Weinberg [facility] 1.2.840 .114 [id number] [facility] 10:35:15 11:26:09 Visit Breanna Means 350.1.13.10 it[place] of [place] [phone] Tn dical nal 179 [facility] 2019-10-25 2019-10-25 Case SAM Ortiz 1.2.840.114 [id number] Univers 00:00:00 00:00:00 Management Jelly ARANDA 350.1.13.10 ity of [facility] 4.2.7.2.686 Too as [phone] [address] 2019-10-25 2019-10-25 Telephone Luís [facility] 1.2.840.114 [id number] Univers 00:00:00 00:00:00 Jason Sepulveda 350.1.13.10 [place] [phone] Tn dical nal 092 [facility] 2019-10-24 2019-10-24 Ancillary Lorri Weinberg [facility] 1.2.840 .114 [id number] Univers 11:14:15 11:54:15 Visit Breanna Means 350.1.13.10 [place].2.[place] [phone] Tn dical nal 179 [facility] 2019-10-24 2019-10-24 Telephone Rafael [facility] 1.2.469.507 [id number] Univers 00:00:00 00:00:00 Brendan Sepulveda 350.1.13.10 [place] [phone] Tn dical nal 059 [facility] 2019-10-23 2019-10-23 Ancillary Lorri Weinberg [facility] 1.2.840 .114 [id number] Univers 15:30:50 16:10:50 Visit Breanna Means 350.1.13.10 [place] [phone] Tn dical nal 179 [facility] 2019-10-23 2019-10-23 Office Luís [facility] 1.2.840.114 [id number] Univers 13:32:50 14:33:50 Visit Jason Sepulveda 350.1.13.10 it[place].2.[place] [phone] Tn dical nal 092 [facility] 2019-09-17 2019-10-22 Ancillary Jagdeep Glenn Shirley [facility] 1 .2.840.114 [id number] Univers 09:01:46 09:42:22 Visit Breanna Means 350.1.13.10 it[place] [phone] Tn dical nal 179 [facility] 2019-10-19 2019-10-19 Orders Doctor SAM 1.2.840.114 [id number] Univers 00:00:00 00:00:00 Only Unassigned, ROSI 350.1.13.10 ity of [place] [facility] 4.2.7.2.686 Too as [phone] [address] 2019-10-18 2019-10-18 Office Julisa [facility] 1.2.840.114 [id number] Univers 13:50:43 13:50:58 Visit Gene Sepulveda 350.1.13.10 it[place] [phone] Tn dical nal 059 [facility] 2019-10-18 2019-10-18 Outpatient R JULISA [facility] [id number] Univers 10:30:00 13:50:58 SENDIL ity of [facility] 2019-10-18 2019-10-18 Telephone Rafael [facility] 1.2.819.243 [id number] Univers 00:00:00 00:00:00 Brendan Sepulveda 350.1.13.10 [place] [phone] Tn dical nal 059 [facility] 2019-10-18 2019-10-18 Orders Doctor SAM 1.2.840.114 [id number] Univers 00:00:00 00:00:00 Only Unassigned, ROSI 350.1.13.10 ity of [place] [facility] 4.2.7.2.686 Too as [phone] [address] 2019-10-15 2019-10-15 Transition Aki Levy 1.2.840.114 [id number] Univers 00:00:00 00:00:00 of Care Martha Short 350.1.13.10 it y of [place].2.[place] [phone] [address] 2019-10-12 2019-10-12 Outpatient R CLARY [facility] [id number] Univers 11:20:00 11:20:00 BREANNA ewing of [facility] 2019-10-09 2019-10-09 Outpatient R RAFAEL [facility] [id number] Univers 15:00:00 16:27:15 BRENDAN fuentesy o f [facility] 2019-10-09 2019-10-09 Ancillary Lorri Weinberg [facility] 1.2.840 .114 [id number] Univers 10:28:34 11:37:49 Visit Breanna Means 350.1.13.10 [place] [phone] Tn dical nal 179 [facility] 2019-10-08 2019-10-08 Transition Aki Lowe 1.2.840.114 [id number] Univers 00:00:00 00:00:00 of Care Yenifer Short 350.1.13.10 it y of [place].2.[place] [phone] [address] 2019-10-04 2019-10-05 Emergency Yluiana Harley [facility] 1.2.840.1 14 [id number] Univers 16:52:17 16:50:00 Efe Pugh 350.1.13.10 it[place] of [place].2.[place] [phone] [facility] [address] 2019-10-03 2019-10-03 Ancillary LenardLulaLorri K [facility] 1.2.840 .114 [id number] Univers 15:03:32 15:43:32 Visit Breanna Means 350.1.13.10 it[place] of [place].2.[place] [phone] Tn dical nal 179 [facility] 2019-09-28 2019-09-28 Ancillary Shirley Banks [facility] 1 .2.840.114 [id number] Univers 10:51:31 11:58:26 Visit Breanna Means 350.1.13.10 it[place] of [place].2.[place] [phone] Tn dical nal 179 [facility] 2019-09-27 2019-09-27 Ancillary LenardLulaLorri K [facility] 1.2.840 .114 [id number] Univers 13:04:43 13:49:43 Visit Breanna Means 350.1.13.10 it[place].2.[place] [phone] Tn dical nal 179 [facility] 2019-09-27 2019-09-27 Orders Doctor SAM 1.2.840.114 [id number] Univers 00:00:00 00:00:00 Only Unassigned, ROSI 350.1.13.10 ity of [place] [facility] 4.2.7.2.686 Too as [phone] [facility] [address] 2019-09-25 2019-09-25 Ancillary Lorri Weinberg Edi [facility] 1.2.840 .114 [id number] Univers 13:03:04 13:48:04 Visit Breanna Means 350.1.13.10 ity of [place] 4.2.7.2.686 Ofe Banks [phone] Tn dical nal [address] [facility] Results Test Description Test Time Test Comments Results Result Comments Source ETHANOL 2023-05-24 02:01:55 Test Item Value Reference Range Interpretation Comme nts ALCOHOL (test code = 8083112983) 200 mg/dL BOB (test code = BOB) <10 Ewkfdsip78-196 Toxic>100 Depression of SENIOR MANAGER ASSET PROTECTION>400 Fatalities Reported [facility]. METABOLIC PANEL (11817)2023-05-24 02:01:14 Test Item Value Reference Range Interpretation Comments NA (test code = 137 mmol/L 135-145 3520183604) K (test code = 4.4 mmol/L 3.5-5.0 3774345328) CL (test code = 106 mmol/L 98-108 9267355712) CO2 TOTAL (test code = 20 mmol/L 23-31 L 5241272250) AGAP (test code = 11 2-16 2897990885) BUN (test code = 18 mg/dL 7-23 6054269927) GLUCOSE (test code = 90 mg/dL 70-110 9270430358) CREATININE (test code = 1.16 mg/dL 0.60-1.25 8141166222) TOTAL BILI (test code = 0.6 mg/dL 0.1-1.2 3138783351) CALCIUM (test code = 8.5 mg/dL 8.6-10.6 L 1684373674) T PROTEIN (test code = 6.4 g/dL 6.3-8.2 1073011026) ALBUMIN (test code = 3.8 g/dL 3.5-5.0 4572047412) ALK PHOS (test code = 45 U/L 34-122 1864148644) ALTv (test code = 30 U/L 5-50 1742-6) AST(SGOT) (test code = 39 U/L 13-40 7917128566) eGFR (test code = 60.3 mL/min/1.73m2 7046080154) BOB (test code = BOB) Association of Glomerular Filtration Rate (GFR) and Staging of Kidney Disease* + --+ --+ ------+| GFR (mL/min/1.73 m2) ?| With Kidney Damage ?| ?Without Kidney Damage+ --------+ --------+ +| ?>90 ?| ?Stage one ?| ? Normal ?+ ---+ ---+ -------+| ?60-89 ?| ?Stage two ?| ? Decreased GFR ? + --+ --+ ------+| ?30-59 ?| ?Stage three ?| ? Stage three ? + --+ --+ ------+| ?15-29 ?| ?Stage four ? | ? Stage four ?+ ---+ ---+ -------+| ?<15 (or dialysis) ? ?| ?Stage five ? | ? Stage five ?+ ---+ ---+ -------+ *Each stage assumes the associated GFR level has been in effect for at least three months. ?Stages 1 to 5, with or without kidney disease, indicate chronic kidney disease. Notes: Determination of stages one and two (with eGFR >59mL/min/1.73 m2) requires estimation of kidney damage for at least three months as defined by structural or functional abnormalities of the kidney, manifested by either:Pathological abnormalities or Markers of kidney damage (including abnormalities in the composition of the blood or urine or abnormalities in imaging tests). Lab Interpretation Abnormal (test code = 05821-7) [facility] WITH [id number] 01:49:36 Test Item Value Reference Range Interpretation Comments WBC (test code = 8.91 See_Comment [Automated 0869-2) message] The sy stem which generated this result transmitted reference range : 4.20 - 10.70 10*3/?L. The reference range was not used to interpret this result as normal/abnormal . RBC (test code = 4.20 See_Comment L [Automated 225-8) message] The sy stem which generated this result transmitted reference range : 4.26 - 5.52 10*6/?L. The reference range was not used to interpret this result as normal/abnormal . HGB (test code = 14.2 g/dL 12.2-16.4 718-7) HCT (test code = 42.9 % 38.4-49.3 4544-3) MCV (test code = 102.1 fL 81.7-95.6 H 787-2) MCH (test code = 33.8 pg 26.1-32.7 H 785-6) MCHC (test code = 33.1 g/dL 31.2-35.0 786-4) RDW-SD (test code = 52.6 fL 38.5-51.6 H 33133-1) RDW-CV (test code = 14.0 % 12.1-15.4 788-0) PLT (test code = 171 See_Comment [Automated 777-3) message] The sy stem which generated this result transmitted reference range : 150 - 328 10*3/ ?L. The reference r cole was not used to interpret this result as normal/abnormal . MPV (test code = 10.4 fL 9.8-13.0 56180-3) NRBC/100 WBC (test 0.0 See_Comment [Automat ed code = 8682846952) message] The system which generated this result transmitted reference range : 0.0 - 10.0 /100 WBCs. The refer ence range was not u sed to interpret th is result as normal/abnormal . NRBC x10^3 (test code See_Comment [Auto mated = 8404226528) message] The s ystem which generated this result transmitted reference range : 10*3/?L. The reference range was not used to interpret this result as normal/abnormal . GRAN MAT (NEUT) % 69.9 % (test code = 770-8) IMM GRAN % (test code 0.20 % = 4691863913) LYMPH % (test code = 17.8 % 736-9) MONO % (test code = 9.1 % 5905-5) EOS % (test code = 2.7 % 713-8) BASO % (test code = 0.3 % 706-2) GRAN MAT x10^3(ANC) 6.22 10*3/uL 1.99-6.95 (test code = 4156998213) IMM GRAN x10^3 (test 0.00-0.06 code = 9959090606) LYMPH x10^3 (test code 1.59 10*3/uL 1.09-3.23 = 731-0) MONO x10^3 (test code 0.81 10*3/uL 0.36-1.02 = 742-7) EOS x10^3 (test code = 0.24 10*3/uL 0.06-0.53 711-2) BASO x10^3 (test code 0.03 10*3/uL 0.01-0.09 = 704-7) Lab Interpretation Abnormal (test code = 14021-6) [facility] NEPHROSTOM[facility] TUBE CHANGE, [id number] 17:22:00Reason for Exam:->NEOPLASM RELATED PAIN [facility] BEN[facility] REBOLLEDO : 1940 Sex: MFINAL REPORT Ultrasound and fluoroscopically guided left nephrostomy tube placement Clinical History: Collecting system access for chemotherapy administration. Modality: Sonography and fluoroscopy Plug Cutting Machine Operator: Mike Fischer MD. Probation Manager: Saul Sotelo M.D.. Sedation: Versed 3 mg [...] procedure, including utilization of sterile scrub solution forskin prep, a large sterile sheet to cover the areas of the patient that were not prepped, and hand hygiene, mask, head covering, and sterile gown for performing radiologist and scrub technologist. Local anesthesia was achieved with 1% lidocaine, the left upper pole calyx was visualized with ultrasound, slight caliectasis to this calyx noted. No evidence of hydronephrosis as patent left ureteral stentin place. Using ultrasound guidance, a 21-gauge Accustick [...] made, the soft tissue tract was dilated with7 and 9 [place] dilators. A 8.5 [place] drainage catheter was placed into the left renal pelvis. The wire was then removed, and the pigtail of the catheter was locked. The catheter was then secured onto the skin with 2-0 Prolene. The patient tolerated the procedure well, without immediate complications.The patient's vital signs remained stable throughout the [...] MDReport Verified Date/Time: 05/06/2022 17:22:20 Reading Location: [address] Body Reading Room POC-Glucose [id number] 09:58:14 Test Item Value Reference Range Interpretation Comments POC-Glucose Meter (test 107 mg/dL 70-110 : TE STED AT [facility] code = 1538) [address] [facility] 30: Content Writer/Techni raoul ID = [id number] for CAREN BLACKWELL ET Lab Interpretation (test Normal code = 62734-0) [facility] [id number] 09:58:14 Test Item Value Reference Range Interpretation Comments POC-Glucose Meter (test 107 mg/dL 70-110 : TE STED AT [facility] code = 1538) [address] [place] [address], 770 30: Content Writer/Techni raoul ID = [id number] for CABUYADAO, CAREN ET Lab Interpretation (test Normal code = 66272-0) [facility]-Glucose [id number] 09:58:14 Test Item Value Reference Range Interpretation Comments POC-Glucose Meter (test 107 mg/dL 70-110 : TE STED AT [facility] code = 1538) [address] [place] [address], [facility] 30: Content Writer/Techni raoul ID = [id number] for CABUYADAO, CAREN ET Lab Interpretation (test Normal code = 75208-5) [facility]-Glucose [id number] 09:58:14 Test Item Value Reference Range Interpretation Comments POC-Glucose Meter (test 107 mg/dL 70-110 : TE STED AT [facility] code = 1538) [address] [place] [address], [facility] 30: Content Writer/Techni raoul ID = [id number] for CABUYADAO, CAREN ET Lab Interpretation (test Normal code = 92822-4) [facility]-Glucose [id number] 09:58:14 Test Item Value Reference Range Interpretation Comments POC-Glucose Meter (test 107 mg/dL 70-110 : TE STED AT [facility] code = 1538) [address] [place] [address], [facility] 30: Content Writer/Techni raoul ID = [id number] for CABUYADAO, CAREN ET Lab Interpretation (test Normal code = 09163-5) [facility]-Glucose [id number] 09:58:14 Test Item Value Reference Range Interpretation Comments POC-Glucose Meter (test 107 mg/dL 70-110 : TE STED AT [facility] code = 1538) [address] [place] [address], [facility] 30: Content Writer/Techni raoul ID = [id number] for CABUYADAO, CAREN ET Lab Interpretation (test Normal code = 63272-4) [facility]-GLUCOSE [id number] 09:58:14 Test Item Value Reference Range Interpretation Comments POC-GLUCOSE METER 107 mg/dL 70-110 : TESTED A T [facility] 67 (BEAKER) (test code = [place], 1538) [address]: Content Writer/Techni raoul ID = [id number] for KIRIT LUGO CBC W/PLT COUNT & AUTO [id number] 09:44:59 Test Item Value Reference Range Interpretation [...] PERCENT (BEAKER) (test code = 2801) PROTHROMBIN TIME/[id number] 09:44:04 Test Item Value Reference Range Interpretation Comments PROTIME (BEAKER) 12.7 seconds 11.9-14.2 (test code = 759) INR (BEAKER) (test 1.01 See_Comment [Automat ed message] code = 370) The system [employer] generated this result transmitted ref erence range: <=5.90. The reference range was not used to int erpret this result as normal/abnormal . RECOMMENDED COUMADIN/WARFARIN INR THERAPY RANGESSTANDARD DOSE: 2.0 - 3.0 Includes: PROPHYLAXIS for venous thrombosis, systemic embolization; TREATMENT for venous thrombosis and/or pulmonary embolus.HIGH RISK: Target INR is 2.5-3.5 for patients with mechanical heart valves.ANG, NEPHROSTOMY, PERC, EXTERNAL DRAIN 2022-01-07 19:13:00Needs left percutaneous nephrostomy tube placement (NOT PCNU), due to distal obstruction in left ureter. Reason for exam:->[facility]vere [facility]ph[facility] : 1940 Sex: MFINAL [...] the sheath within the collecting system. A Crystal ISson wire was then placed and coiled within the left renal pelvis. The tract was dilated and an 8 [place] pigtail external nephrostomy catheter was placed over [...] reported as (Ka,r): 63 mGy Signed:Sam Lund MDReport Verified Date/Time: 01/07/2022 19:13:35 Reading Location: [place] [address] Angio Body Reading Room Urine [id number] 11:43:21 Test Item Value Reference Range Interpretation Comments Result (test code = 6463-4) No growth [facility] [id number] 11:43:21 Test Item Value Reference Range Interpretation Comments Result (test code = 6463-4) No growth [facility] [id number] 11:43:21 Test Item Value Reference Range Interpretation Comments Result (test code = 6463-4) No growth [facility] [id number] 11:43:21 Test Item Value Reference Range Interpretation Comments Result (test code = 6463-4) No growth [facility] [id number] 11:43:21 Test Item Value Reference Range Interpretation Comments Result (test code = 6463-4) No growth [facility] [id number] 11:43:21 Test Item Value Reference Range Interpretation Comments Result (test code = 6463-4) No growth [facility] [id number] 11:43:21 Test Item Value Reference Range Interpretation Comments CULTURE (BEAKER) (test code = 1095) No growth POCT-GLUCOSE [id number] 12:05:17 Test Item Value Reference Range Interpretation Comments POC-GLUCOSE METER 111 mg/dL 70-110 H : TESTED A T [facility] 6720 (BEAKER) (test code = KIZZY Taylor [facility], 1538) [address]: Content Writer/Techni raoul ID = [id number] for ANGELIA BURTON BASIC METABOLIC [id number] 05:57:55 Test Item Value Reference Range Interpretation [...] S NOT APPLICABLE FOR DIALYSIS PATIEN TS. Content Writer ID - [id number] LCBC W/PLT COUNT & AUTO [id number] 05:37:43 Test Item Value Reference Range Interpretation [...] PERCENT (BEAKER) (test code = 2801) Gram [id number] 00:56:10 Test Item Value Reference Range Interpretation Comments Gram Stain Result (test No organisms seen code = 1123) [id number] 00:56:10 Test Item Value Reference Range Interpretation Comments Gram Stain Result (test No organisms seen code = 1123) [facility] [id number] 00:56:10 Test Item Value Reference Range Interpretation Comments Gram Stain Result (test No organisms seen code = 1123) [facility] [id number] 00:56:10 Test Item Value Reference Range Interpretation Comments Gram Stain Result (test No organisms seen code = 1123) [facility] [id number] 00:56:10 Test Item Value Reference Range Interpretation Comments Gram Stain Result (test No organisms seen code = 1123) [facility] [id number] 00:56:10 Test Item Value Reference Range Interpretation Comments Gram Stain Result (test No organisms seen code = 1123) [facility] [id number] 00:56:10 Test Item Value Reference Range Interpretation Comments GRAM STAIN RESULT (BEAKER) <1+ WBCs (test code = 1123) GRAM STAIN RESULT (BEAKER) No organisms seen (test code = 42710) BASIC METABOLIC [id number] 05:12:35 Test Item Value Reference Range Interpretation [...] S NOT APPLICABLE FOR DIALYSIS PATIEN TS. Content Writer ID - PIAYA LCBC W/PLT COUNT & AUTO [id number] 04:30:47 Test Item Value Reference Range Interpretation [...] = 2801) Urinalysis w/Microscopic + Reflex to [id number] 23:36:22 Test Item Value Reference Range Interpretation Comments Color, UA (test code Yellow = 5778-6) Clarity, UA (test Clear code = 5767-9) Specific [place], UA 1.043 1.001-1.035 H (test code = 5811-5) pH, UA (test code = 6.0 5.0-8.0 5803-2) Protein, UA (test 20 mg/dL Negative A code = 98951-9) Glucose, UA (test Negative Negative code = 365) Ketones, UA (test Negative Negative code = 2514-8) Bilirubin, UA (test Negative Negative code = 91516-2) Blood, UA (test code Negative Negative = 06420-9) Nitrite, UA (test Negative Negative code = 5802-4) Leukocytes, UA (test Negative Negative code = 5799-2) Urobilinogen, UA 0.2 mg/dL 0.2-1.0 (test code = 66851-8) RBC, UA (test code = 1 See_Comment [Autom ated 57178-9) message] The system which generated this result [...] Bacteria, UA (test None Seen code = 20451-4) Crystals, Urine (test None Seen code = 85580-7) Specimen Source (test code = 2795) BBO (test code = BOB) Content Writer ID - [auto]Content Writer ID - tech Lab Interpretation Abnormal (test code = 81572-2) [facility] Reflex to Culture 2022-01-03 23:36:22 Test Item Value Reference Range Interpretation Comments Color, UA (test code Yellow = 5778-6) Clarity, UA (test Clear code = 5767-9) Specific [place], UA 1.043 1.001-1.035 H (test code = 5811-5) pH, UA (test code = 6.0 5.0-8.0 5803-2) Protein, UA (test 20 mg/dL Negative A code = 00077-4) Glucose, UA (test Negative Negative code = 365) Ketones, UA (test Negative Negative code = 2514-8) Bilirubin, UA (test Negative Negative code = 10516-7) Blood, UA (test code Negative Negative = 84098-0) Nitrite, UA (test Negative Negative code = 5802-4) Leukocytes, UA (test Negative Negative code = 5799-2) Urobilinogen, UA 0.2 mg/dL 0.2-1.0 (test code = 22370-5) RBC, UA (test code = 1 See_Comment [Autom ated 64420-4) message] The system which generated this result [...] Bacteria, UA (test None Seen code = 33033-0) Crystals, Urine (test None Seen code = 66050-5) Specimen Source (test code = 2795) BOB (test code = BOB) Content Writer ID - [auto]Content Writer ID - tech Lab Interpretation Abnormal (test code = 39076-9) [facility] Reflex to Culture 2022-01-03 23:36:22 Test Item Value Reference Range Interpretation Comments Color, UA (test code Yellow = 5778-6) Clarity, UA (test Clear code = 5767-9) Specific [place], UA 1.043 1.001-1.035 H (test code = 5811-5) pH, UA (test code = 6.0 5.0-8.0 5803-2) Protein, UA (test 20 mg/dL Negative A code = 97143-2) Glucose, UA (test Negative Negative code = 365) Ketones, UA (test Negative Negative code = 2514-8) Bilirubin, UA (test Negative Negative code = 39622-3) Blood, UA (test code Negative Negative = 27149-7) Nitrite, UA (test Negative Negative code = 5802-4) Leukocytes, UA (test Negative Negative code = 5799-2) Urobilinogen, UA 0.2 mg/dL 0.2-1.0 (test code = 58688-8) RBC, UA (test code = 1 See_Comment [Autom ated 93976-9) message] The system which generated this result [...] Bacteria, UA (test None Seen code = 27537-0) Crystals, Urine (test None Seen code = 42284-9) Specimen Source (test code = 2795) BOB (test code = BOB) Content Writer ID - [auto]Content Writer ID - tech Lab Interpretation Abnormal (test code = 33267-2) [facility] + Reflex to Culture 2022-01-03 23:36:22 Test Item Value Reference Range Interpretation Comments Color, UA (test code Yellow = 5778-6) Clarity, UA (test Clear code = 5767-9) Specific [place], UA 1.043 1.001-1.035 H (test code = 5811-5) pH, UA (test code = 6.0 5.0-8.0 5803-2) Protein, UA (test 20 mg/dL Negative A code = 66780-5) Glucose, UA (test Negative Negative code = 365) Ketones, UA (test Negative Negative code = 2514-8) Bilirubin, UA (test Negative Negative code = 74640-4) Blood, UA (test code Negative Negative = 56663-0) Nitrite, UA (test Negative Negative code = 5802-4) Leukocytes, UA (test Negative Negative code = 5799-2) Urobilinogen, UA 0.2 mg/dL 0.2-1.0 (test code = 44042-5) RBC, UA (test code = 1 See_Comment [Autom ated 40513-5) message] The system which generated this result [...] Bacteria, UA (test None Seen code = 80506-3) Crystals, Urine (test None Seen code = 11240-7) Specimen Source (test code = 2795) BOB (test code = BOB) Content Writer ID - [auto]Content Writer ID - tech Lab Interpretation Abnormal (test code = 75415-0) [facility] + Reflex to Culture 2022-01-03 23:36:22 Test Item Value Reference Range Interpretation Comments Color, UA (test code Yellow = 5778-6) Clarity, UA (test Clear code = 5767-9) Specific [place], UA 1.043 1.001-1.035 H (test code = 5811-5) pH, UA (test code = 6.0 5.0-8.0 5803-2) Protein, UA (test 20 mg/dL Negative A code = 99546-5) Glucose, UA (test Negative Negative code = 365) Ketones, UA (test Negative Negative code = 2514-8) Bilirubin, UA (test Negative Negative code = 61000-8) Blood, UA (test code Negative Negative = 21817-6) Nitrite, UA (test Negative Negative code = 5802-4) Leukocytes, UA (test Negative Negative code = 5799-2) Urobilinogen, UA 0.2 mg/dL 0.2-1.0 (test code = 91258-5) RBC, UA (test code = 1 See_Comment [Autom ated 84009-2) message] The system which generated this result [...] Bacteria, UA (test None Seen code = 04304-6) Crystals, Urine (test None Seen code = 06613-3) Specimen Source (test code = 2795) BOB (test code = BOB) Content Writer ID - [auto]Content Writer ID - tech Lab Interpretation Abnormal (test code = 86639-2) [facility] + Reflex to Culture 2022-01-03 23:36:22 Test Item Value Reference Range Interpretation Comments Color, UA (test code Yellow = 5778-6) Clarity, UA (test Clear code = 5767-9) Specific [place], UA 1.043 1.001-1.035 H (test code = 5811-5) pH, UA (test code = 6.0 5.0-8.0 5803-2) Protein, UA (test 20 mg/dL Negative A code = 66908-1) Glucose, UA (test Negative Negative code = 365) Ketones, UA (test Negative Negative code = 2514-8) Bilirubin, UA (test Negative Negative code = 78412-7) Blood, UA (test code Negative Negative = 10029-2) Nitrite, UA (test Negative Negative code = 5802-4) Leukocytes, UA (test Negative Negative code = 5799-2) Urobilinogen, UA 0.2 mg/dL 0.2-1.0 (test code = 55669-2) RBC, UA (test code = 1 See_Comment [Autom ated 16909-3) message] The system which generated this result [...] Bacteria, UA (test None Seen code = 49553-8) Crystals, Urine (test None Seen code = 25854-1) Specimen Source (test code = 2795) BOB (test code = BOB) Content Writer ID - [auto]Content Writer ID - tech Lab Interpretation Abnormal (test code = 14886-8) [facility] URINE [id number] 23:36:22 Test Item Value Reference Range Interpretation [...] = 1521) SOURCE(BEAKER) (test code = 2795) Content Writer ID - [auto]Content Writer ID - techCOMPREHENSIVE METABOLIC [id number] 23:07:39 Test Item Value Reference Range Interpretation [...] S NOT APPLICABLE FOR DIALYSIS PATIEN TS. Content Writer ID - DBCBC W/PLT COUNT & AUTO [id number] 23:06:50 Test Item Value Reference Range Interpretation [...] 0-1 PERCENT (BEAKER) (test code = 2801) [id number] 23:01:04 Test Item Value Reference Range Interpretation [...] 2.5-3.5 for patients with mechanical heart valves.PROTHROMBIN [id number] 23:00:22 Test Item Value Reference Range Interpretation Comments PROTIME (BEAKER) 13.0 seconds 11.9-14.2 (test code = 759) INR (BEAKER) (test 1.00 See_Comment [Automat ed message] code = 370) The system [employer] generated this result transmitted ref erence range: <=5.90. The reference range was not used to int erpret this result as normal/abnormal . RECOMMENDED COUMADIN/WARFARIN INR THERAPY RANGESSTANDARD DOSE: 2.0 - 3.0 Includes: PROPHYLAXIS for venous thrombosis, systemic embolization; TREATMENT for venous thrombosis and/or pulmonary embolus.HIGH RISK: Target INR is 2.5-3.5 for patients with mechanical heart valves.URINE AND [id number] 19:16:00 Test Item Value Reference Range Interpretation Comments UA Spec Grav (test code = UA Spec 1.016 1 1.001-1.035 Grav) [facility] AND [id number] 19:16:00 Test Item Value Reference Range Interpretation Comments UA pH (test code = UA pH) 6.5 1 5.0-8.0 [facility] AND [id number] 19:16:00 Test Item Value Reference Range Interpretation Comments UA Glucose (test code = UA Glucose) NEGATIVE [facility] AND [id number] 19:16:00 Test Item Value Reference Range Interpretation Comments UA Bili (test code = UA Bili) NEGATIVE [facility] AND [id number] 19:16:00 Test Item Value Reference Range Interpretation Comments UA Ketones (test code = UA Ketones) NEGATIVE [facility] AND [id number] 19:16:00 Test Item Value Reference Range Interpretation Comments UA Blood (test code = UA Blood) TRACE [facility] AND [id number] 19:16:00 Test Item Value Reference Range Interpretation Comments UA Protein (test code = UA Protein) TRACE [facility] AND [id number] 19:16:00 Test Item Value Reference Range Interpretation Comments UA Nitrite (test code = UA Nitrite) NEGATIVE [facility] AND [id number] 19:16:00 Test Item Value Reference Range Interpretation Comments UA Leuk Est (test code = UA Leuk NEGATIVE Est) [facility] AND [id number] 19:16:00 Test Item Value Reference Range Interpretation Comments UA WBC (test code = UA WBC) 6-10 [facility] [id number] 19:16:00 Test Item Value Reference Range Interpretation Comments UA RBC (test code = UA RBC) 3-10 [facility] AND [id number] 19:16:00 Test Item Value Reference Range Interpretation Comments UA Sq Epi (test code = UA Sq Epi) 0-5 [facility] [id number] 19:16:00 Test Item Value Reference Range Interpretation Comments UA Bacteria (test code = UA Bacteria) MANY [facility] AND [id number] 19:16:00 Test Item Value Reference Range Interpretation Comments UA Hyal Cast (test code = UA Hyal Cast) 0-5 [facility] AND [id number] 19:16:00 Test Item Value Reference Range Interpretation Comments UA Reflex (test code = UA Reflex) SEE COMMENT [facility] AND [id number] 19:16:00 Test Item Value Reference Range Interpretation Comments UA Color (test code = UA Color) YELLOW [facility] AND [id number] 19:16:00 Test Item Value Reference Range Interpretation Comments UA Turbidity (test code = UA CLOUDY Turbidity) [facility] AND [id number] 19:16:00 Test Item Value Reference Range Interpretation Comments UA Spec Grav (test code = UA Spec 1.016 1 1.001-1.035 Grav) [facility] AND [id number] 19:16:00 Test Item Value Reference Range Interpretation Comments UA pH (test code = UA pH) 6.5 1 5.0-8.0 [facility] AND [id number] 19:16:00 Test Item Value Reference Range Interpretation Comments UA Glucose (test code = UA Glucose) NEGATIVE [facility] AND [id number] 19:16:00 Test Item Value Reference Range Interpretation Comments UA Bili (test code = UA Bili) NEGATIVE [facility] [id number] 19:16:00 Test Item Value Reference Range Interpretation Comments UA Ketones (test code = UA Ketones) NEGATIVE [facility] [id number] 19:16:00 Test Item Value Reference Range Interpretation Comments UA Color (test code = UA Color) YELLOW [facility] AND [id number] 19:16:00 Test Item Value Reference Range Interpretation Comments UA Turbidity (test code = UA CLOUDY Turbidity) [facility] [id number] 19:16:00 Test Item Value Reference Range Interpretation Comments UA Spec Grav (test code = UA Spec 1.016 1 1.001-1.035 Grav) [facility] AND [id number] 19:16:00 Test Item Value Reference Range Interpretation Comments UA pH (test code = UA pH) 6.5 1 5.0-8.0 [facility] AND [id number] 19:16:00 Test Item Value Reference Range Interpretation Comments UA Glucose (test code = UA Glucose) NEGATIVE [facility] AND [id number] 19:16:00 Test Item Value Reference Range Interpretation Comments UA Bili (test code = UA Bili) NEGATIVE [facility] AND [id number] 19:16:00 Test Item Value Reference Range Interpretation Comments UA Ketones (test code = UA Ketones) NEGATIVE [facility] AND [id number] 19:16:00 Test Item Value Reference Range Interpretation Comments UA Blood (test code = UA Blood) TRACE [facility] AND [id number] 19:16:00 Test Item Value Reference Range Interpretation Comments UA Protein (test code = UA Protein) [facility] [id number] 19:16:00 Test Item Value Reference Range Interpretation Comments UA Nitrite (test code = UA Nitrite) NEGATIVE [facility] AND [id number] 19:16:00 Test Item Value Reference Range Interpretation Comments UA Blood (test code = UA Blood) TRACE [facility] AND [id number] 19:16:00 Test Item Value Reference Range Interpretation Comments UA Leuk Est (test code = UA Leuk NEGATIVE Est) [facility] AND [id number] 19:16:00 Test Item Value Reference Range Interpretation Comments UA WBC (test code = UA WBC) 6-10 [facility] AND [id number] 19:16:00 Test Item Value Reference Range Interpretation Comments UA RBC (test code = UA RBC) 3-10 [facility] [id number] 19:16:00 Test Item Value Reference Range Interpretation Comments UA Sq Epi (test code = UA Sq Epi) 0-5 [facility] [id number] 19:16:00 Test Item Value Reference Range Interpretation Comments UA Bacteria (test code = UA Bacteria) MANY [facility] [id number] 19:16:00 Test Item Value Reference Range Interpretation Comments UA Hyal Cast (test code = UA Hyal Cast) 0-5 [facility] [id number] 19:16:00 Test Item Value Reference Range Interpretation Comments UA Reflex (test code = UA Reflex) SEE COMMENT [facility] [id number] 19:16:00 Test Item Value Reference Range Interpretation Comments UA Protein (test code = UA Protein) TRACE [facility] [id number] 19:16:00 Test Item Value Reference Range Interpretation Comments UA Nitrite (test code = UA Nitrite) NEGATIVE [facility] [id number] 19:16:00 Test Item Value Reference Range Interpretation Comments UA Leuk Est (test code = UA Leuk NEGATIVE Est) [facility] [id number] 19:16:00 Test Item Value Reference Range Interpretation Comments UA WBC (test code = UA WBC) 6-10 [facility] [id number] 19:16:00 Test Item Value Reference Range Interpretation Comments UA RBC (test code = UA RBC) 3-10 [facility] [id number] 19:16:00 Test Item Value Reference Range Interpretation Comments UA Sq Epi (test code = UA Sq Epi) 0-5 [facility] [id number] 19:16:00 Test Item Value Reference Range Interpretation Comments UA Bacteria (test code = UA Bacteria) MANY [facility] [id number] 19:16:00 Test Item Value Reference Range Interpretation Comments UA Hyal Cast (test code = UA Hyal Cast) 0-5 [facility] [id number] 19:16:00 Test Item Value Reference Range Interpretation Comments UA Reflex (test code = UA Reflex) SEE COMMENT [facility] [id number] 19:16:00 Test Item Value Reference Range Interpretation Comments UA Color (test code = UA Color) YELLOW [facility] [id number] 19:16:00 Test Item Value Reference Range Interpretation Comments UA Turbidity (test code = UA CLOUDY Turbidity) [facility] [id number] 19:16:00 Test Item Value Reference Range Interpretation Comments UA Spec Grav (test code = UA Spec 1.016 1 1.001-1.035 Grav) [facility] AND [id number] 19:16:00 Test Item Value Reference Range Interpretation Comments UA pH (test code = UA pH) 6.5 1 5.0-8.0 [facility] [id number] 19:16:00 Test Item Value Reference Range Interpretation Comments UA Glucose (test code = UA Glucose) NEGATIVE [facility] AND [id number] 19:16:00 Test Item Value Reference Range Interpretation Comments UA Bili (test code = UA Bili) NEGATIVE [facility] AND [id number] 19:16:00 Test Item Value Reference Range Interpretation Comments UA Ketones (test code = UA Ketones) NEGATIVE [facility] AND [id number] 19:16:00 Test Item Value Reference Range Interpretation Comments UA Blood (test code = UA Blood) TRACE [facility] AND [id number] 19:16:00 Test Item Value Reference Range Interpretation Comments UA Protein (test code = UA Protein) [facility] [id number] 19:16:00 Test Item Value Reference Range Interpretation Comments UA Nitrite (test code = UA Nitrite) NEGATIVE [facility] AND [id number] 19:16:00 Test Item Value Reference Range Interpretation Comments UA Leuk Est (test code = UA Leuk NEGATIVE Est) [facility] AND [id number] 19:16:00 Test Item Value Reference Range Interpretation Comments UA WBC (test code = UA WBC) 6-10 [facility] [id number] 19:16:00 Test Item Value Reference Range Interpretation Comments UA RBC (test code = UA RBC) 3-10 [facility] [id number] 19:16:00 Test Item Value Reference Range Interpretation Comments UA Sq Epi (test code = UA Sq Epi) 0-5 [facility] AND [id number] 19:16:00 Test Item Value Reference Range Interpretation Comments UA Bacteria (test code = UA Bacteria) MANY [facility] AND [id number] 19:16:00 Test Item Value Reference Range Interpretation Comments UA Hyal Cast (test code = UA Hyal Cast) 0-5 [facility] AND [id number] 19:16:00 Test Item Value Reference Range Interpretation Comments UA Reflex (test code = UA Reflex) SEE COMMENT [facility] AND [id number] 19:16:00 Test Item Value Reference Range Interpretation Comments UA Color (test code = UA Color) YELLOW [facility] AND [id number] 19:16:00 Test Item Value Reference Range Interpretation Comments UA Turbidity (test code = UA CLOUDY Turbidity) [facility] AND [id number] 19:16:00 Test Item Value Reference Range Interpretation Comments UA Spec Grav (test code = UA Spec 1.016 1 1.001-1.035 Grav) [facility] AND [id number] 19:16:00 Test Item Value Reference Range Interpretation Comments UA pH (test code = UA pH) 6.5 1 5.0-8.0 [facility] AND [id number] 19:16:00 Test Item Value Reference Range Interpretation Comments UA Glucose (test code = UA Glucose) NEGATIVE [facility] AND [id number] 19:16:00 Test Item Value Reference Range Interpretation Comments UA Bili (test code = UA Bili) NEGATIVE [facility] AND [id number] 19:16:00 Test Item Value Reference Range Interpretation Comments UA Ketones (test code = UA Ketones) NEGATIVE [facility] AND [id number] 19:16:00 Test Item Value Reference Range Interpretation Comments UA Blood (test code = UA Blood) TRACE [facility] AND [id number] 19:16:00 Test Item Value Reference Range Interpretation Comments UA Protein (test code = UA Protein) TRACE [facility] AND [id number] 19:16:00 Test Item Value Reference Range Interpretation Comments UA Nitrite (test code = UA Nitrite) NEGATIVE [facility] AND [id number] 19:16:00 Test Item Value Reference Range Interpretation Comments UA Leuk Est (test code = UA Leuk NEGATIVE Est) [facility] AND [id number] 19:16:00 Test Item Value Reference Range Interpretation Comments UA WBC (test code = UA WBC) 6-10 [facility] AND [id number] 19:16:00 Test Item Value Reference Range Interpretation Comments UA RBC (test code = UA RBC) 3-10 [facility] AND [id number] 19:16:00 Test Item Value Reference Range Interpretation Comments UA Sq Epi (test code = UA Sq Epi) 0-5 [facility] AND [id number] 19:16:00 Test Item Value Reference Range Interpretation Comments UA Bacteria (test code = UA Bacteria) MANY [facility] AND [id number] 19:16:00 Test Item Value Reference Range Interpretation Comments UA Hyal Cast (test code = UA Hyal Cast) 0-5 [facility] AND [id number] 19:16:00 Test Item Value Reference Range Interpretation Comments UA Reflex (test code = UA Reflex) SEE COMMENT [facility] AND [id number] 19:16:00 Test Item Value Reference Range Interpretation Comments UA Color (test code = UA Color) YELLOW [facility] AND [id number] 19:16:00 Test Item Value Reference Range Interpretation Comments UA Turbidity (test code = UA CLOUDY Turbidity) [facility] AND [id number] 19:16:00 Test Item Value Reference Range Interpretation Comments UA Spec Grav (test code = UA Spec 1.016 1 1.001-1.035 Grav) [facility] AND [id number] 19:16:00 Test Item Value Reference Range Interpretation Comments UA pH (test code = UA pH) 6.5 1 5.0-8.0 [facility] AND [id number] 19:16:00 Test Item Value Reference Range Interpretation Comments UA Glucose (test code = UA Glucose) NEGATIVE [facility] AND [id number] 19:16:00 Test Item Value Reference Range Interpretation Comments UA Bili (test code = UA Bili) NEGATIVE [facility] AND [id number] 19:16:00 Test Item Value Reference Range Interpretation Comments UA Ketones (test code = UA Ketones) NEGATIVE [facility] AND [id number] 19:16:00 Test Item Value Reference Range Interpretation Comments UA Blood (test code = UA Blood) TRACE [facility] AND [id number] 19:16:00 Test Item Value Reference Range Interpretation Comments UA Protein (test code = UA Protein) [facility] [id number] 19:16:00 Test Item Value Reference Range Interpretation Comments UA Nitrite (test code = UA Nitrite) NEGATIVE [facility] [id number] 19:16:00 Test Item Value Reference Range Interpretation Comments UA Leuk Est (test code = UA Leuk NEGATIVE Est) [facility] [id number] 19:16:00 Test Item Value Reference Range Interpretation Comments UA WBC (test code = UA WBC) 6-10 [facility] [id number] 19:16:00 Test Item Value Reference Range Interpretation Comments UA RBC (test code = UA RBC) 3-10 [facility] [id number] 19:16:00 Test Item Value Reference Range Interpretation Comments UA Sq Epi (test code = UA Sq Epi) 0-5 [facility] [id number] 19:16:00 Test Item Value Reference Range Interpretation Comments UA Bacteria (test code = UA Bacteria) [facility] AND [id number] 19:16:00 Test Item Value Reference Range Interpretation Comments UA Hyal Cast (test code = UA Hyal Cast) 0-5 [facility] [id number] 19:16:00 Test Item Value Reference Range Interpretation Comments UA Reflex (test code = UA Reflex) SEE COMMENT [facility] [id number] 19:16:00 Test Item Value Reference Range Interpretation Comments UA Color (test code = UA Color) YELLOW [facility] [id number] 19:16:00 Test Item Value Reference Range Interpretation Comments UA Turbidity (test code = UA CLOUDY Turbidity) [facility] [id number] 19:16:00 Test Item Value Reference Range Interpretation Comments UA Spec Grav (test code = UA Spec 1.016 1 1.001-1.035 Grav) [facility] [id number] 19:16:00 Test Item Value Reference Range Interpretation Comments UA pH (test code = UA pH) 6.5 1 5.0-8.0 [facility] [id number] 19:16:00 Test Item Value Reference Range Interpretation Comments UA Glucose (test code = UA Glucose) NEGATIVE [facility] [id number] 19:16:00 Test Item Value Reference Range Interpretation Comments UA Bili (test code = UA Bili) NEGATIVE [facility] [id number] 19:16:00 Test Item Value Reference Range Interpretation Comments UA Ketones (test code = UA Ketones) NEGATIVE [facility] [id number] 19:16:00 Test Item Value Reference Range Interpretation Comments UA Blood (test code = UA Blood) [facility] [id number] 19:16:00 Test Item Value Reference Range Interpretation Comments UA Protein (test code = UA Protein) [facility] [id number] 19:16:00 Test Item Value Reference Range Interpretation Comments UA Nitrite (test code = UA Nitrite) NEGATIVE [facility] [id number] 19:16:00 Test Item Value Reference Range Interpretation Comments UA Leuk Est (test code = UA Leuk NEGATIVE Est) [facility] [id number] 19:16:00 Test Item Value Reference Range Interpretation Comments UA WBC (test code = UA WBC) 6-10 [facility] [id number] 19:16:00 Test Item Value Reference Range Interpretation Comments UA RBC (test code = UA RBC) 3-10 [facility] [id number] 19:16:00 Test Item Value Reference Range Interpretation Comments UA Sq Epi (test code = UA Sq Epi) 0-5 [facility] [id number] 19:16:00 Test Item Value Reference Range Interpretation Comments UA Bacteria (test code = UA Bacteria) MANY [facility] [id number] 19:16:00 Test Item Value Reference Range Interpretation Comments UA Hyal Cast (test code = UA Hyal Cast) 0-5 [facility] [id number] 19:16:00 Test Item Value Reference Range Interpretation Comments UA Reflex (test code = UA Reflex) SEE COMMENT [facility] [id number] 19:16:00 Test Item Value Reference Range Interpretation Comments UA Color (test code = UA Color) YELLOW [facility] [id number] 19:16:00 Test Item Value Reference Range Interpretation Comments UA Turbidity (test code = UA CLOUDY Turbidity) [facility] [id number] 19:16:00 Test Item Value Reference Range Interpretation Comments UA Spec Grav (test code = UA Spec 1.016 1 1.001-1.035 Grav) [facility] [id number] 19:16:00 Test Item Value Reference Range Interpretation Comments UA pH (test code = UA pH) 6.5 1 5.0-8.0 [facility] [id number] 19:16:00 Test Item Value Reference Range Interpretation Comments UA Glucose (test code = UA Glucose) NEGATIVE [facility] [id number] 19:16:00 Test Item Value Reference Range Interpretation Comments UA Bili (test code = UA Bili) NEGATIVE [facility] [id number] 19:16:00 Test Item Value Reference Range Interpretation Comments UA Ketones (test code = UA Ketones) NEGATIVE [facility] [id number] 19:16:00 Test Item Value Reference Range Interpretation Comments UA Blood (test code = UA Blood) [facility] [id number] 19:16:00 Test Item Value Reference Range Interpretation Comments UA Protein (test code = UA Protein) [facility] [id number] 19:16:00 Test Item Value Reference Range Interpretation Comments UA Nitrite (test code = UA Nitrite) NEGATIVE [facility] [id number] 19:16:00 Test Item Value Reference Range Interpretation Comments UA Leuk Est (test code = UA Leuk NEGATIVE Est) [facility] [id number] 19:16:00 Test Item Value Reference Range Interpretation Comments UA WBC (test code = UA WBC) 6-10 [facility] [id number] 19:16:00 Test Item Value Reference Range Interpretation Comments UA RBC (test code = UA RBC) 3-10 [facility] [id number] 19:16:00 Test Item Value Reference Range Interpretation Comments UA Sq Epi (test code = UA Sq Epi) 0-5 [facility] [id number] 19:16:00 Test Item Value Reference Range Interpretation Comments UA Bacteria (test code = UA Bacteria) [facility]ANY [facility] [id number] 19:16:00 Test Item Value Reference Range Interpretation Comments UA Hyal Cast (test code = UA Hyal Cast) 0-5 [facility] AND [id number] 19:16:00 Test Item Value Reference Range Interpretation Comments UA Reflex (test code = UA Reflex) SEE COMMENT [facility] AND [id number] 19:16:00 Test Item Value Reference Range Interpretation Comments UA Color (test code = UA Color) YELLOW [facility] AND [id number] 19:16:00 Test Item Value Reference Range Interpretation Comments UA Turbidity (test code = UA CLOUDY Turbidity) [facility] AND [id number] 19:16:00 Test Item Value Reference Range Interpretation Comments UA Spec Grav (test code = UA Spec 1.016 1 1.001-1.035 Grav) [facility] AND [id number] 19:16:00 Test Item Value Reference Range Interpretation Comments UA pH (test code = UA pH) 6.5 1 5.0-8.0 [facility] AND [id number] 19:16:00 Test Item Value Reference Range Interpretation Comments UA Glucose (test code = UA Glucose) NEGATIVE [facility] AND [id number] 19:16:00 Test Item Value Reference Range Interpretation Comments UA Bili (test code = UA Bili) NEGATIVE [facility] AND [id number] 19:16:00 Test Item Value Reference Range Interpretation Comments UA Ketones (test code = UA Ketones) NEGATIVE [facility] AND [id number] 19:16:00 Test Item Value Reference Range Interpretation Comments UA Blood (test code = UA Blood) TRACE [facility] AND [id number] 19:16:00 Test Item Value Reference Range Interpretation Comments UA Protein (test code = UA Protein) TRACE [facility] AND [id number] 19:16:00 Test Item Value Reference Range Interpretation Comments UA Nitrite (test code = UA Nitrite) NEGATIVE [facility] AND [id number] 19:16:00 Test Item Value Reference Range Interpretation Comments UA Leuk Est (test code = UA Leuk NEGATIVE Est) [facility] AND [id number] 19:16:00 Test Item Value Reference Range Interpretation Comments UA WBC (test code = UA WBC) 6-10 [facility] AND [id number] 19:16:00 Test Item Value Reference Range Interpretation Comments UA RBC (test code = UA RBC) 3-10 [facility] [id number] 19:16:00 Test Item Value Reference Range Interpretation Comments UA Sq Epi (test code = UA Sq Epi) 0-5 [facility] [id number] 19:16:00 Test Item Value Reference Range Interpretation Comments UA Bacteria (test code = UA Bacteria) MANY [facility] [id number] 19:16:00 Test Item Value Reference Range Interpretation Comments UA Hyal Cast (test code = UA Hyal Cast) 0-5 [facility] [id number] 19:16:00 Test Item Value Reference Range Interpretation Comments UA Reflex (test code = UA Reflex) SEE COMMENT [facility] [id number] 19:16:00 Test Item Value Reference Range Interpretation Comments UA Color (test code = UA Color) YELLOW [facility] AND [id number] 19:16:00 Test Item Value Reference Range Interpretation Comments UA Turbidity (test code = UA CLOUDY Turbidity) [facility] AND [id number] 19:16:00 Test Item Value Reference Range Interpretation Comments UA Spec Grav (test code = UA Spec 1.016 1 1.001-1.035 Grav) [facility] AND [id number] 19:16:00 Test Item Value Reference Range Interpretation Comments UA pH (test code = UA pH) 6.5 1 5.0-8.0 [facility] AND [id number] 19:16:00 Test Item Value Reference Range Interpretation Comments UA Glucose (test code = UA Glucose) NEGATIVE [facility] AND [id number] 19:16:00 Test Item Value Reference Range Interpretation Comments UA Bili (test code = UA Bili) NEGATIVE [facility] [id number] 19:16:00 Test Item Value Reference Range Interpretation Comments UA Ketones (test code = UA Ketones) NEGATIVE [facility] [id number] 19:16:00 Test Item Value Reference Range Interpretation Comments UA Blood (test code = UA Blood) TRACE [facility] AND [id number] 19:16:00 Test Item Value Reference Range Interpretation Comments UA Protein (test code = UA Protein) [facility] AND [id number] 19:16:00 Test Item Value Reference Range Interpretation Comments UA Nitrite (test code = UA Nitrite) NEGATIVE [facility] [id number] 19:16:00 Test Item Value Reference Range Interpretation Comments UA Leuk Est (test code = UA Leuk NEGATIVE Est) [facility] AND [id number] 19:16:00 Test Item Value Reference Range Interpretation Comments UA WBC (test code = UA WBC) 6-10 [facility] [id number] 19:16:00 Test Item Value Reference Range Interpretation Comments UA RBC (test code = UA RBC) 3-10 [facility] AND [id number] 19:16:00 Test Item Value Reference Range Interpretation Comments UA Sq Epi (test code = UA Sq Epi) 0-5 [facility] AND [id number] 19:16:00 Test Item Value Reference Range Interpretation Comments UA Bacteria (test code = UA Bacteria) MANY [facility] AND [id number] 19:16:00 Test Item Value Reference Range Interpretation Comments UA Hyal Cast (test code = UA Hyal Cast) 0-5 [facility] [id number] 19:16:00 Test Item Value Reference Range Interpretation Comments UA Reflex (test code = UA Reflex) SEE COMMENT [facility] [id number] 19:16:00 Test Item Value Reference Range Interpretation Comments UA Color (test code = UA Color) YELLOW [facility] AND [id number] 19:16:00 Test Item Value Reference Range Interpretation Comments UA Turbidity (test code = UA CLOUDY Turbidity) [id number] 10:40:00 Test Item Value Reference Range Interpretation Comments POC-CREATININE 0.9 mg/dL 0.6-1.3 [facility] (test [address] [facility] code = 1859) [place] [address] POC-EGFR 82 mL/min/1.73M2 (BEAKER) (test code = 1860) BASIC METABOLIC [id number] 09:21:00 Test Item Value Reference Range Interpretation [...] ESTIMATED GFR. CREATINE KINASE (CK), TOTAL AND [id number] 08:57:00 Test Item Value Reference Range Interpretation Comments CREATINE KINASE TOTAL (BEAKER) 128 U/L 29-200 (test code = 380) CREATINE KINASE-MB (BEAKER) (test 3.6 ng/mL 0.0-6.6 code = 750) CREATINE KINASE-MB INDEX (BEAKER) 2.8 % (test code = 395) Effective 07/30/2014: CK-MB Reference Range ChangeNew: 0.0-6.6 Previous: 0.0-4.9CK-MB Reference Range:<6.7 Normal6.7-10.0 Borderline>10.0 Abnormal TROPONIN [id number] 08:57:00 Test Item Value Reference Range Interpretation [...] 29 pg/mL 0-100 (test code = 700) [id number] 08:50:00 Test Item Value Reference Range Interpretation Comments MAGNESIUM (BEAKER) (test code = 2.1 mg/dL 1.6-2.6 627) [id number] 08:47:00 Test Item Value Reference Range Interpretation [...] mechanical heart valves.CBC W/PLT COUNT & AUTO [id number] 08:36:00 Test Item Value Reference Range Interpretation [...] L 0.00-0.20 (test code = 417) 0.00 Notes Date/Time Note Provider Source 2023-05-24 Formatting of this note might be differe nt from the original. Martha Perry RN [facility] 00:04:01-00:00 Pt's given printed and verbal discharge instructions regarding fall Pt's verbalized underst anding of instructions, pt awake alert oriented, resp reg unlabored, skin w/d, color appropriate for race, moves all ext well,pt encouraged to follow up with pcp Advised to seek medical attention for new/prolon ged/worsening of symptoms No adverse reaction to meds given in ER noted up on discharge PIV d'cd, dressing to site, catheter in tact. Awake, alert oriented, resp reg unlabored, skin w/d, pt leaving amb with steady gait, in no apparent distress 2023-05-23 Formatting of this note might be differe nt from the original. Sandrita Feliciano RN [facility] 19:57:51-00:00 Pt arrived with [facility] for fal l at home with laceration to L forehead. Per EMS they frequently are called out to this pt for falls but usually only for lift assist. Pt reports he had two glasses of wine p rior to falling and may have hit head on metal bed frame. Per EMS pt is usually confused when they see him but he may be slightly more confused this time. Pt is repeating himself and then becomes emotional. Pt is A&Ox4, hard of hearing. 2023-05-23 Associated Order(s): EKG-12 Lead ONCE [facility] 19:55:00-00:00 Pre-Procedure Diagnose(s): Fall, initial encount er Post-Procedure Diagnose(s): Fall, initial encoun ter Formatting of this note is different from the or iginal. 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 male with fall and i njury to left forehead. reports fall after getting out his recliner. EMS reports +wine ingestion. Patient somewhat confused upon arrival. Past Medical History/Immunizations: Past Medical History: Diagnosis Date Cancer colon cancer COPD (chronic obstructive pulmonary disease) Irregular heart beat Tetanus received in last 5 years: Yes Allergies: Allergies Allergen Reactions Hydromorphone Hallucinations hallucinations Past Social History: Tobacco Use Every Day; Types: Pipe Smokeless Tobacco: Never used smokeless tobacco . 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 HENT: Positive for facial swelling. Left forehead hematoma Eyes: Negative. Respiratory: Negative. Breasts: Negative. Cardiovascular: Negative. Gastrointestinal: Negative. Genitourinary: Negative. Musculoskeletal: Left hand superficial skin tear. Skin: Positive for wound. Neurological: Positive for l ight-headedness. Negative for dizziness, tremors, seizures, syncope, facial asymmetry, speech difficulty, weakness, numbness and headaches. Psychiatric/Behavioral: Negative. Endocrine: Endocrine negative Physical Exam: ED Triage Vitals Weight 05/23/232002 74.8 kg (165 lb) Actual or estimated 05/23/232002 Actual Height -- BP 05/23/231999 119/62 Pulse 05/23/231999 84 Resp 05/23/231999 (!) 36 Temp 05/23/232002 36.9 ?C (98.4 ?F) Temp source 05/23/232002 Oral SpO2 05/23/231999 97 % Measured on 05/23/232002 Room air Physical Exam Vitals and nursing note reviewed. Constitutional: General: He is in acute distress. Appearance: He is ill-appearing. He is not toxi c-appearing or diaphoretic. HENT: Head: Comments: Left forehead hematoma, superficial s kin tear, scant bleeding Nose: Nose normal. Mouth/Throat: Mouth: Mucous membranes are moist. Cardiovascular: Rate and Rhythm: Normal rate. Rhythm irregular. Pulmonary: Effort: No respiratory distress. Abdominal: Palpations: Abdomen is soft. Musculoskeletal: General: No swelling or deformity. Normal range of motion. Cervical back: Normal range of motion and neck supple. Skin: General: Skin is warm. Capillary Refill: Capillary refill takes less t gasca 2 seconds. Neurological: Mental Status: He is alert. He is disoriented. Psychiatric: Mood and Affect: Mood normal. Behavior: Behavior normal. Radiology: No orders to display Lab Results: Lab Results - No data to display EKG: If EKG completed, see Procedure Note. Orders and Treatments: Orders Placed This Encounter Procedures CT HEAD WO CONTRAST CT CERVICAL SPINE WO CONTRAST CBC WITH DIFF COMP. METABOLIC PANEL (97139) ETHANOL URINALYSIS No orders of the defined types were placed in th is encounter. First Provider Eval: ED Events None No notes of EC Admission Criteria type on file. ED COURSE Diagnosis/Impression as of 05/23/232018 Fall, initial encounter Procedures: EKG-12 Lead ONCE Date/Time: 05/23/2023 9:09 PM Performed by: Jordon Marti MD Authorized by: Jordon Marti MD ECG reviewed by ED Physician in the absence of a hot die press feeder: yes Previous ECG: Previous ECG: Compared to current Similarity: No change Interpretation: Interpretation: abnormal Rate: ECG rate: 85 Rhythm: Rhythm: atrial fibrillation Ectopy: Ectopy: none QRS: QRS axis: Normal QRS intervals: Normal QRS conduction: non-specific conduction delay ST segments: ST segments: Non-specific T waves: T waves: non-specific MDM: Medical Decision Making Amount and/or Complexity of Data Reviewed Labs: ordered. Radiology: ordered. A) Mechanical Fall, Forehead-Hematoma/Abrasion, Alcohol Intoxication Disposition/Condition: Decre ase alcohol use, Fall Precautions at home, topical abx. Ointment , ER warnings, f/u PCP ED Disposition None Discharge Medications: Patient's Medications START taking these medications No medications on file CONTINUE taking these medications which have NOT CHANGED APIXABAN (ELIQUIS) 5 MG TAB LET Take 1 tablet by mouth 2 (two) times daily. Indications: atrial fibrillation CARBIDOPA-LEVODOPA 25-100 M G TABLET Take 1 tablet by mouth 3 (three) times daily. CEPHALEXIN (KEFLEX) 500 MG CAPSULE Take 1 capsule by mouth in the morning and 1 capsule at noon and 1 capsule in the evening. FINASTERIDE 5 MG TABLET Take 5 mg by mouth gigi y. GABAPENTIN 100 MG CAPSULE TAKE 1 CAPSULE BY ART TH THREE TIMES A DAY HYDRALAZINE 50 MG TABLET Take 1 tablet by mouth 2 (two) times daily. LISINOPRIL 10 MG TABLET Take 1 tablet by mouth daily. MAGNESIUM OXIDE 400 MG MAGN ESIUM CAPSULE Take by mouth daily. Indications: "supposed to help with my balance problem" NORTRIPTYLINE 50 MG CAPSULE Take 50 mg by mouth at bedtime. TAMSULOSIN (FLOMAX) 0.4 MG 24 HR CAPSULE Take 0 .4 mg by mouth daily. START taking Modified Medications as Prescribed No medications on file STOP taking these medications No medications on file Follow-up: PCP Electronically signed by: Jordon Marti MD 05/23/23 [id number] Electronically signed by Jordon Marti MD at 0 05/23/2023 11:09 PM CDT
--- NOTE | 2023-05-26 21:43 | RAD REPORT ---
EXAM DESCRIPTION: RAD - Chest Single View - 05/26/2023 9:34 pm CLINICAL HISTORY: chills, weakness Chest pain. COMPARISON: Chest Single View dated 12/31/2022; Chest Single View dated 12/26/2022; Chest Pa And Lat ( 2 Views) dated 11/11/2022; Abdomen 1 View (KUB) dated 03/18/2022 FINDINGS: Portable technique limits examination quality. Mild opacity is seen in the right lung base likely developing infiltrate/ pneumonia. The lungs are ot herwise clear. The heart is moderately enlarged. No displaced fractures.
[2023-05-26 21:54] LABS: Specific Gravity 1.017 (1.005-1.030); Urine Bacteria <20 /HPF (<20); Urine Bilirubin NEGATIVE (Negative); Urine Blood 3+ (OVER) (Negative); Urine Clarity Extremely Turbid (Clear); Urine Color Brown (Yellow); Urine Crystals Unidentified Few /HPF (None Seen); Urine Glucose NEGATIVE (Negative); Urine Mucus Slight /HPF (None Seen); Urine Protein 2+ (Negative); Urine RBC >50 /HPF (None Seen); Urine Urobilinogen Normal (Normal); Urine WBC Clump Few /HPF (None Seen); Urine pH 6.5 (5.0-7.0)
[2023-05-26 21:57] LABS: SARS-CoV-2 Antigen Rapid Res Negative (Negative)
[2023-05-26] MEDS ORDERED: NA CHLORIDE 0.9% 500 ML ONE (22:01)
[2023-05-26 22:07] LABS: Absolute Lymphocytes (CBC) 0.7 K/uL (0.7-4.9); Hematocrit 42.9 % (39.6-49.0); Lymphocytes % 9.5 % (15.3-44.8); MCV 100.3 fL (80-100); MPV 8.4 fL (7.6-11.3); Platelets 156 thou/uL (152-406); RBC Red Blood Cell Count 4.27 M/uL (4.33-5.43)
[2023-05-26 22:09] LABS: Protime INR 0.91
[2023-05-26 22:22] LABS: Albumin 3.3 g/dL (3.4-5.0); Bilirubin Total 1.1 mg/dL (0.2-1.0); Potassium 4.3 mEq/L (3.5-5.1); Protein, Total 6.4 g/dL (6.4-8.2)
--- NOTE | 2023-05-26 22:57 | ER ---
Nurse's Notes [facility] Name: Carlitos Peralta Age: 82 yrs Sex: Male : 1940 Arrival Date: 05/26/2023 Time: 20:59 Bed 4 Private MD: Diagnosis: UTI/ Urinary tract infection, site not specified;Pneumonia, unspecified organism;Muscle weakness (generalized) Presentation: 05/26 21:08 Chief complaint: EMS states: toned out to house for increased weakness. States he has me1 progressively gotten weaker over the past 5 days but today was unable to stand and walk even with assist of walker. C/o new onset abdominal pain with diarrhea that started today. Coronavirus screen: Vaccine status: Patient reports receiving the 1st dose of the Covid vaccine. chills, diarrhea, fatigue, shaking with chills. Ebola Screen: No symptoms or risks identified at this time. Initial Sepsis Screen: Does the patient meet any 2 criteria? No. Patient's initial sepsis screen is negative. Does the patient have a suspected source of infection? No. Patient's initial sepsis screen is negative. Risk Assessment: Do you want to hurt yourself or someone else? Patient reports no desire to harm self or others. Onset of symptoms was May 21, 2023. 21:08 [place] Of [place] [facility] [place] Acuity: LUISITO 3 me1 Triage Assessment: 21:11 General: Appears uncomfortable, well groomed, well developed, well nourished, Behavior me1 is calm, cooperative, appropriate for age, Reports fatigue for increased weakness over past 5 days. Pain: Denies pain. Neuro: Level of Consciousness is awake, alert, obeys commands, Oriented to person, place, time, situation, Appropriate for age. Cardiovascular: Capillary refill < 3 seconds Patient's skin is warm and dry. Respiratory: Airway is patent Respiratory effort is even, unlabored, Respiratory pattern is regular, symmetrical. : Reports recent hx of hematuria caused by bladder cancer and recently completed tx. Historical: - Allergies: 21:11 Dilaudid; me1 - PMHx: 21:11 a fib; Arthritis; Bladder cancer; CA; Hypertensive disorder; me1 - PSHx: 21:11 colon cancer sx; hernia repair; mult eye sx; me1 - Immunization history:: Adult Immunizations unknown. - Social history:: Smoking status: Patient/guardian denies using tobacco, but has a distant history of tobacco abuse. - Family history:: not pertinent. - Hospitalizations: : No recent hospitalization is reported. Screenin:14 [facility] ED Fall Risk Assessment (Adult) History of falling in the last 3 months, me1 including since admission No falls in past 3 months (0 pts) Confusion or Disorientation No (0 pts) Intoxicated or Sedated No (0 pts) Impaired Gait Yes (1 pt) Mobility Assist Device Used Yes (1 pt) Altered Elimination No (0 pt) Score/Fall Risk Level 3 or more points = High Risk Maintained a safe environment, Educated pt \T\ family on fall prevention, incl call for assistance when getting out of bed, Provided non-skid footwear, Hourly rounding (assess needs \T\ fall precautionary measures) done, Used gait belt as appropriate. Abuse screen: Denies threats or abuse. Nutritional screening: No deficits noted. Tuberculosis screening: No symptoms or risk factors identified. Assessment: 21:14 General: see triage assessment.. me1 22:00 Reassessment: Patient appears in no apparent distress at this time. Patient and/or jb4 family updated on plan of care and expected duration. Pain level reassessed. Patient is alert, oriented x 3, equal unlabored respirations, skin warm/dry/pink. 23:00 Reassessment: Patient appears in no apparent distress at this time. Patient and/or jb4 family updated on plan of care and expected duration. Pain level reassessed. Patient is alert, oriented x 3, equal unlabored respirations, skin warm/dry/pink. 05/27 00:00 Reassessment: Patient appears in no apparent distress at this time. Patient and/or jb4 family updated on plan of care and expected duration. Pain level reassessed. Patient is alert, oriented x 3, equal unlabored respirations, skin warm/dry/pink. 01:20 Reassessment: Patient appears in no apparent distress at this time. Patient and/or jb4 family updated on plan of care and expected duration. Pain level reassessed. Patient is alert, oriented x 3, equal unlabored respirations, skin warm/dry/pink. Vital Signs: 05/26 21:08 BP 157 / 79; Pulse 88; Resp 20; Temp 98.2(O); Pulse Ox 99% on R/A; Weight 97.07 kg; me1 Height 5 ft. 11 in. ; Pain 0/10; 22:00 BP 168 / 81; Pulse 89; Resp 21; Pulse Ox 95% on R/A; me1 23:00 BP 163 / 83; Pulse 89; Resp 22; Pulse Ox 100% ; me1 05/27 00:00 BP 136 / 72; Pulse 89; Resp 16; Pulse Ox 100% on R/A; jb4 01:00 BP 141 / 75; Pulse 81; Resp 18; Pulse Ox 100% on R/A; jb4 05/26 21:08 Body Mass Index 29.85 (97.07 kg, 180.34 cm) me1 05/26 21:08 Pain Scale: [place] [facility] [place] [place] Course: 05/26 21:00 Patient arrived in ED. rn 21:00 Braden Tavarez MD is Attending Physician. rn 21:08 Kelsey Lassiter RN is Primary Nurse. me1 21:11 Triage completed. me1 21:11 Arm band placed on Patient placed in an exam room. me1 21:14 Patient has correct armband on for positive identification. Bed in low position. Call sc1 light in reach. Side rails up X2. Provided Education on: POC. Verbalized understanding.. 21:14 No provider procedures requiring assistance completed. Maintain EMS IV. Dressing me1 intact. Good blood return noted. Site clean \T\ dry. Gauge \T\ site: 20 gauge LAC. 21:34 Flu Sent. me1 21:34 SARS RAPID Sent. me1 21:34 Urinalysis w/ reflexes Sent. me1 21:36 Chest Single View XRAY In Process Unspecified. EDMS 22:56 Danny Schultz MD is Hospitalizing Provider. rn 05/27 01:29 Patient admitted, IV remains in place. jb4 Administered Medications: 05/26 21:51 Drug: NS 0.9% IV 500 ml Route: IV; Rate: bolus; Site: left antecubital; jb4 23:11 Follow up: IV Status: Completed infusion; IV Intake: 500ml me1 23:21 Drug: Rocephin IV 1 grams Route: IV; Rate: calculated rate; Site: left antecubital; me1 23:45 Follow up: Response: No adverse reaction me1 23:21 Drug: Zithromax IVPB 500 mg Route: IVPB; Infused Over: 1 hrs; Site: left antecubital; me1 Medication: 21:14 VIS not applicable for this client. me1 Intake: 23:11 IV: 500ml; Total: 500ml. me1 Outcome: 22:56 Decision to Hospitalize by Provider. gianna 05/27 01:29 Admitted to Med/surg accompanied by nurse, via stretcher, room 210, with chart, Report jb4 called to [place] Condition: stable Discharge instructions given to patient, Instructed on the need for admit, Demonstrated understanding of instructions. 01:29 Patient left the ED. jb4 Signatures: Dispatcher [employer] EDBraden Ayala MD MD rn Bryson, James, RN RN jb4 Kelsey Lassiter, GIANNA RN me1
--- NOTE | 2023-05-26 22:57 | EDPHYS ---
Physician Documentation [facility] Name: Carlitos Peralta Age: 82 yrs Sex: Male : 1940 Arrival Date: 05/26/2023 Time: 20:59 Bed 4 Private MD: ED Physician Braden Tavarez HPI: 05/26 21:06 This 82 yrs old Male presents to ER via Unassigned with complaints of Weakness. rn 21:06 Patient reports 1 week of progressive generalized weakness, associated with mild rn abdominal pain and diarrhea. Has history of bladder cancer and sees Dr. Gomez but no active issues. Reports intermittent hematuria that has been happening for months but no worse than normal. Denies any cough or shortness of breath. No runny nose. No headache. Main complaint is fatigue and malaise. Reports having difficulty standing and walking even with his cane.. Onset: The symptoms/episode began/occurred 1 week(s) ago. Severity of symptoms: At their worst the symptoms were moderate in the emergency department the symptoms are unchanged. The patient has not experienced similar symptoms in the past. The patient has not recently seen a physician. Historical: - Allergies: 21:11 Dilaudid; me1 - PMHx: 21:11 a fib; Arthritis; Bladder cancer; CA; Hypertensive disorder; me1 - PSHx: 21:11 colon cancer sx; hernia repair; mult eye sx; me1 - Immunization history:: Adult Immunizations unknown. - Social history:: Smoking status: Patient/guardian denies using tobacco, but has a distant history of tobacco abuse. - Family history:: not pertinent. - Hospitalizations: : No recent hospitalization is reported. ROS: 21:06 Constitutional: Positive for chills Eyes: Negative for injury, pain, redness, and ad operations intern, Cardiovascular: Negative for chest pain, palpitations, and edema, Respiratory: Negative for shortness of breath, cough, wheezing, and pleuritic chest pain, Abdomen/GI: Positive for diarrhea and abdominal pain : Negative for injury, bleeding, discharge, and swelling, MS/Extremity: Negative for injury and deformity, Skin: Negative for injury, rash, and discoloration, Neuro: Positive for generalized weakness and malaise Exam: 21:06 Constitutional: This is a well developed, well nourished patient who is awake, alert, rn and in no acute distress. Head/Face: Normocephalic, atraumatic. ENT: Dry mucous membranes Cardiovascular: Regular rate and rhythm. No pulse deficits. Respiratory: No increased work of breathing, no retractions or nasal flaring. Abdomen/GI: Soft, no focal tenderness, no rebound, no masses Skin: Warm, dry MS/ Extremity: Pulses equal, no cyanosis. Neuro: Awake and alert, GCS 15, oriented to person, place, time, and situation. Motor strength 4/5 in all extremities. Sensory grossly intact. 05/27 00:05 ECG was reviewed by the Attending Physician. rn Vital Signs: 05/26 21:08 BP 157 / 79; Pulse 88; Resp 20; Temp 98.2(O); Pulse Ox 99% on R/A; Weight 97.07 kg; me1 Height 5 ft. 11 in. ; Pain 0/10; 22:00 BP 168 / 81; Pulse 89; Resp 21; Pulse Ox 95% on R/A; ct1 23:00 BP 163 / 83; Pulse 89; Resp 22; Pulse Ox 100% ; ct1 05/27 00:00 BP 136 / 72; Pulse 89; Resp 16; Pulse Ox 100% on R/A; jb4 01:00 BP 141 / 75; Pulse 81; Resp 18; Pulse Ox 100% on R/A; jb4 05/26 21:08 Body Mass Index 29.85 (97.07 kg, 180.34 cm) ct1 05/26 21:08 Pain Scale: Adult [facility] MDM: 05/26 21:00 Patient medically screened. rn 22:54 Differential Diagnosis flu, COVID, urinary tract infection, pneumonia, dehydration, rn electrolyte disorder, anemia. Data reviewed: vital signs, nurses notes, lab test result(s), radiologic studies, plain films, and as a result, I will admit patient. Consideration of Admission/Observation Patient was admitted/placed on observation. Escalation of care including admission/observation considered. Management of patient was discussed with the following: Primary Care Provider: Dr. Schultz, will admit. Counseling: I had a detailed discussion with the patient and/or guardian regarding the historical points, exam findings, and any diagnostic results supporting the discharge/admit diagnosis, lab results, radiology results, the need for further work-up and treatment in the hospital. Response to treatment: the patient's symptoms have mildly improved after treatment, and as a result, I will admit patient. ED course: Patient with urinary tract infection and questionable early infiltrate on chest x-ray. Mild tachypnea but patient denies shortness of breath or new cough. Will cover with antibiotics. Will admit to Dr. Schultz for further care. Normal hemoglobin and no gross hematuria.. 05/26 21:02 Order name: Blood Culture Adult (2) 05/26 21:02 Order name: CBC with Diff; Complete Time: 22:48 05/26 21:02 Order name: CMP; Complete Time: 22:48 05/26 21:02 Order name: Lactate w/ 2H reflex if indic.; Complete Time: 22:48 05/26 21:02 Order name: Protime (+inr); Complete Time: 22:48 05/26 21:02 Order name: Ptt, Activated; Complete Time: 22:48 05/26 21:02 Order name: Urinalysis w/ reflexes; Complete Time: 22:04 05/26 21:02 Order name: SARS RAPID; Complete Time: 22:04 05/26 21:02 Order name: Flu; Complete Time: 22:48 05/26 21:54 Order name: Glucose, Ancillary Testing; Complete Time: 22:04 [facility] 05/26 22:03 Order name: Urine Culture [facility] 05/26 21:02 Order name: Chest Single View XRAY; Complete Time: 21:46 05/26 21:02 Order name: EKG; Complete Time: 21:03 05/26 21:02 Order name: Accucheck; Complete Time: 21:43 05/26 21:02 Order name: Cardiac monitoring; Complete Time: 21:16 05/26 21:02 Order name: EKG - Nurse/Tech; Complete Time: 21:43 05/26 21:02 Order name: IV Saline Lock - Large Bore; Complete Time: 21:16 05/26 21:02 Order name: Labs collected and sent; Complete Time: 21:51 05/26 21:02 Order name: O2 Per Protocol; Complete Time: 21:16 05/26 21:02 Order name: O2 Sat Monitoring; Complete Time: 21:16 rn 05/26 21:02 Order name: Vital Signs; Complete Time: 21:16 rn EC/15 00:05 Rate is 94 beats/min. Rhythm is irregularly irregular. Left axis deviation noted. QRS rn is positive in lead I and negative in lead aVF. QRS interval is normal. T waves are Normal. No ST changes noted. Clinical impression: Atrial Fibrillation. Interpreted by me. Reviewed by me. Administered Medications: 05/26 21:51 Drug: NS 0.9% IV 500 ml Route: IV; Rate: bolus; Site: left antecubital; 4 23:11 Follow up: IV Status: Completed infusion; IV Intake: 500ml ct1 23:21 Drug: Rocephin IV 1 grams Route: IV; Rate: calculated rate; Site: left antecubital; me1 23:45 Follow up: Response: No adverse reaction ct1 23:21 Drug: Zithromax IVPB 500 mg Route: IVPB; Infused Over: 1 hrs; Site: left antecubital; ct1 Disposition Summary: 05/26/23 22:56 Hospitalization Ordered Hospitalization Status: Inpatient Admission rn Provider: Danny Schultz [facility] Condition: Stable rn Problem: new rn Symptoms: have improved rn Bed/Room Type: Standard rn Room Assignment: 210(05/27/23 00:49) cg Diagnosis - UTI/ Urinary tract infection, site not specified rn - Pneumonia, unspecified organism rn - Muscle weakness (generalized) rn Forms: - Medication Reconciliation Form rn - SBAR form rn - Leadership Thank You Letter rn Signatures: Dispatcher [employer] EDBraden Ayala MD MD rn Garcia, Cindy, RN RN cg Bryson, James, RN RN jb Kelsey Lassiter RN RN ct1 Corrections: (The following items were deleted from the chart) 05/27 00:49 05/26 22:56 rn cg
[2023-05-26] MEDS ORDERED: NA CHLORIDE 0.9% 250 ML ONE (23:25)
[2023-05-26] MEDS ORDERED: CEFTRIAXONE 1000 MG/VIAL ONE (23:25)
[2023-05-26] MEDS ORDERED: AZITHROMYCIN 500 MG INJ IVPB ONE (23:25)
[2023-05-27 01:37] VITALS: O2SAT 100
[2023-05-27] MEDS ORDERED: ACETAMINOPHEN 500 MG TAB PO PRN (01:57)
[2023-05-27] MEDS ORDERED: ONDANSETRON 4 MG/2 ML VIAL IV PRN (01:57)
[2023-05-27 02:42] VITALS: BMI 29.8
[2023-05-27] MEDS ORDERED: CEFTRIAXONE 1,000 MG in NA CHLORIDE 0.9% 50 ML IVPB SCH (09:00)
[2023-05-27] MEDS ORDERED: NA CHLORIDE 0.9% 500 ML ONE (10:19)
--- NOTE | 2023-05-27 12:47 | RAD REPORT ---
EXAM DESCRIPTION: CT - Thorax W/ Con - 05/27/2023 9:35 am CLINICAL HISTORY: pneumonia COMPARISON: Ct Low Dose Chest Screening dated 05/20/2016 TECHNIQUE: Axial thin cut images of the chest were obtained following intravenous administration of 100 mL Isovue-300. Multiplanar reformats were generated and reviewed. All CT scans are performed using dose optimization technique as appropriate and may include automated exposure control or mA/KV adjustment according to patient size. FINDINGS: No mass or infiltrate in the lung parenchyma. 5 millimeter right upper lobe peribronchovas cular nodule is probably stable. No pleural thickening or pleural effusion. No pneumothorax. No abnormal mediastinal or hilar masses or lymphadenopathy seen. Fusiform aneurysmal dilation of the ascending thoracic aorta, measuring 4.6 cm in caliber, stable. Mild cardiomegaly. No significant pulm onary artery findings. No chest wall mass or abnormal axillary lymphadenopathy. Evaluation of the solid abdominal structures reveals atrophic changes of the left kidney. Hepatic par enchymal hypoattenuation suggesting steatosis IMPRESSION: No acute process within the chest. 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
--- NOTE | 2023-05-27 14:31 | P.SSS ---
Patient History Date of Service: 05/27/23 Reason for admission: GOT WEAK History of Present Illness: MR KESHA IS FORMER [employer] GRAD[employer]ATE WHO HAS HAD CHRONIC ISSUES WITH PARKINSONIAN DISORDER, BLADDER CANCER WITH URETERIC INVASION WHO IS TAKEN CARE BY DR. MILAD MENDEZ. HE DECIDED TO INCREASE HIS DRINKING GIVING UP ON HIS LIFE A FEW DAYS AGO. COMES TO OFFICE YESTERDAY WALKING AT HIS USUSAL PACE. THERE WAS NO ACUTE FINDING. HE GOES HOME AND DECIDES TO CALL AMBULANCE HE IS WEAK. ER PA TOLD HIM HE HAS PNEUMONIA BUT HE HAS NO SYMPTOMS OF ONE. THEY TOLD HIM HE HAS UTI BUT HIS URINE ALWAYS HAS BLOOD AND ESTERASE HE HAS BLADDER CANCER. HE HAS NO UTI SYMPTOMS. HIS CT SCAN OF CHEST THAT I ORDERED SHOWS NO PNEUMONIA. HE IS STABLE IN HIS USUSAL SHAPE TO GO HOME. I TALKED TO HIS SON WHO IS A DOCTOR ALSO. HE IS VERY WELL AWARE OF THEIR POOR PHYSICAL CONDITION. HE WANTS THEM TO GO TO ASSISTED LIVING FACILITY FOR LAST 4 YEARS BUT BOTH ARE STUBBORN PER HIM AND ARE NOT FOLLOWING MINE OR HIS ADVISE. Allergies delavirdine Allergy (Verified 05/10/23 11:58) Hallucinations hydromorphone [From Dilaudid] Allergy (Verified 05/10/23 11:58) Hallucinations meropenem Allergy (Verified 05/10/23 11:58) Hives/Rash tramadol Allergy (Verified 05/10/23 11:58) Hallucinations Home Medications: Cholecalciferol (Vitamin D3) [Vitamin D 5,000 IU Cap*] 5,000 unit PO DAILY #30 cap 05/25/22 Apixaban [Eliquis] 5 mg PO BID 07/27/22 Furosemide [Lasix] 20 mg PO DAILY 07/27/22 Gabapentin [Neurontin*] 100 mg PO TID #90 cap 11/25/22 Lutein 1 tab PO DAILY 12/26/22 Metoprolol Succinate [Toprol Xl*] 75 mg PO DAILY 12/31/22 Potassium Oral Tab [Klor-Con 10 mEq Tab*] 1 tab PO DAILY 12/31/22 Trospium Chloride [Sanctura] 20 mg PO BID 12/31/22 Hydralazine HCl 50 mg PO TID 04/25/23 Tamsulosin HCl 0.4 mg PO DAILY 04/25/23 - Past Medical/Surgical History Has patient received pneumonia vaccine in the past: Yes Diabetic: No -: afib -: colon CA -: bladder CA-current -: prostate CA -: HTN -: arthritis -: POLYMYALGIA RHEUMATICA- STEROIDS -: Colon sx -: Hernia repair -: 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 - Family History Father -: Other (see notes) Notes: brain tumor Mother -: Other (see notes) Notes: arthritis and multiple issues cannot remember - Social History Smoking Status: Never smoker Alcohol use: Yes CD- Drugs: No Caffeine use: Yes Review of Systems 10-point ROS is otherwise unremarkable Physical Examination - Vital Signs Temperature: 98.5 F Blood Pressure: 164/75 Pulse: 75 Respirations: 18 Pulse Ox (%): 98 - Physical Exam General: Oriented x3, Mild distress HEENT: Atraumatic, PERRLA, Mucous membr. moist/pink, EOMI, Sclerae nonicteric Neck: Supple, 2+ carotid pulse no bruit, No LAD, Without JVD or thyroid abnormality Respiratory: Clear to auscultation bilaterally, Normal air movement Cardiovascular: Regular rate/rhythm, Normal S1 S2 Gastrointestinal: Normal bowel sounds, No tenderness Musculoskeletal: No tenderness Integumentary: No rashes Neurological: Normal gait, Normal speech, Normal strength at 5/5 x4 extr, Normal tone, Normal affect Lymphatics: No axilla or inguinal lymphadenopathy - Studies Laboratory Data (last 24 hrs) 05/26/23 05/26/23 05/26/23 21:48 21:48 21:48 WBC 7.60 Hgb 14.4 Hct 42.9 Plt Count 156 PT 10.0 INR 0.91 APTT 28.5 Sodium 137 Potassium 4.3 BUN 24 H Creatinine 1.37 H Glucose 105 Total Bilirubin 1.1 H AST 54 H ALT 46 Alkaline Phosphatase 56 Microbiology Data (last 24 hrs): 05/26/23 21:30 Nasopharnyx Influenza Type A Antigen Screen - Final 05/26/23 21:30 Nasopharnyx Influenza Type B Antigen Screen - Final - Diagnosis (Problem(s)) (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 HE NEEDS TO QUIT. HE IS DEPRESSED BUT QUIT TAKING MEDS. HE NEEDS TO TAKE FOLATE, THIAMINE AND MVI DAILY. HE SHOWS NO SIGNS OF WITHDRAWAL OR ACUTE INTOXICATION. (2) Unstable gait Current Visit: Yes Status: Chronic Plan: HE HAS BEEN TO A COUPLE OF NEUROLOGIST WITH NO HELP FROM [facility]. I SUSPECT THERE IS A FACTOR FROM ALCOHOLIC NEUROPATHY ALSO. CONSULT PT AT HOME. 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 TROY MENDEZ. - Disposition Disposition: DC HOME/HOME HEALTH CARE Condition: FAIR
--- NOTE | 2023-05-27 16:32 | EKG ---
Test Date: 2023-05-26 Test Time: 21:37:54 Inter Fold Roll Cutter: BARB MEASUREMENT RESULTS: Intervals: Rate: 94 VA: QRSD: 106 QT: 350 QTc: 437 Treynor: P: VA: QRS: -73 T: 71 INTERPRETIVE STATEMENTS: Atrial fibrillation Left axis deviation Abnormal ECG Compared to ECG 12/31/2022 01:52:00 Left-axis deviation now present Left bundle-branch block no longer present Electronically Signed On 05-27-23 16:31:31 CDT by Price Wu
[2023-05-27 16:42] VITALS: BP 149/67; TEMP 97.6
[2023-05-27] MEDS ORDERED: AZITHROMYCIN IV 250 MG in NA CHLORIDE 0.9% 250 ML IVPB SCH (20:00)
[2023-05-27] MEDS ORDERED: APIXABAN 5 MG TABLET PO SCH (21:00)
[2023-05-28] MEDS ORDERED: METOPROLOL XL 50 MG TAB PO SCH (06:00)
== END 2023-05-27 17:50 | disposition home health service (06) | DRG 74 ==
LOC: ER 20:59 → 2ND 05-27 00:37
PROVIDERS: ADMIT Internal Medicine; ATTEND Internal Medicine
DX: G62.1 Alcoholic polyneuropathy (principal); F10.988 Alcohol use, unspecified with other alcohol-induced disorder; C66.2 Malignant neoplasm of left ureter; I48.19 Other persistent atrial fibrillation; G20 Parkinson's disease; R26.89 Other abnormalities of gait and mobility; I10 Essential (primary) hypertension; M35.3 Polymyalgia rheumatica; M19.90 Unspecified osteoarthritis, unspecified site; F32.A Depression, unspecified; Z91.199 Patient's noncompliance with other medical treatment and regimen due to unspecified reason; Z94.7 Corneal transplant status; Z85.038 Personal history of other malignant neoplasm of large intestine; Z85.46 Personal history of malignant neoplasm of prostate; Z87.891 Personal history of nicotine dependence; Z79.899 Other long term (current) drug therapy; Z88.8 Allergy status to other drugs, medicaments and biological substances; Z20.822 Contact with and (suspected) exposure to COVID-19
CPT/HCPCS: 36415; 71045; 71260; 80053; 81001; 82947; 83605; 85025; 85610; 85730; 87040; 87086; 87088; 87804; 87811; 93005; 96361; 96374; 96375; 97116; 99285; J0696; J7040; J7050; Q9967

== ENCOUNTER 2023-06-28 09:14 | Day surgery (SDC) | payer OTHER ==
[~2023-06-28 09:14] MED LIST changes: +DOCEtaxeL 37.5 MG in NA CHLORIDE 0.9% 48.125 ML IS ONE; +GEMCITABINE HCL 23.6 ML IS ONE; -Gentamicin Inj 200 MG in NA CHLORIDE 0.9% 100 ML IV SCH
[2023-06-28] MEDS ORDERED: oxyBUTYnin chloride 5 MG TAB ONE (10:00)
[2023-06-28 10:02] LABS: Specific Gravity 1.018 (1.005-1.030); Urine Bacteria >50 /HPF (<20); Urine Bilirubin NEGATIVE (Negative); Urine Blood 1+ (Negative); Urine Clarity Extremely Turbid (Clear); Urine Color Yellow (Yellow); Urine Glucose NEGATIVE (Negative); Urine Mucus Slight /HPF (None Seen); Urine Protein 2+ (Negative); Urine RBC 21-50 /HPF (None Seen); Urine Urobilinogen Normal (Normal); Urine WBC Clump Rare /HPF (None Seen)
[2023-06-28] MEDS ORDERED: DIAZEPAM 5 MG TABLET ONE (10:43)
[2023-06-28 10:55] VITALS: BP 124/60; TEMP 98.1; O2SAT 97; BMI 28.7
[2023-06-28] MEDS ORDERED: SMZ./TMP. 800/160 MG TABLET PO ONE (11:00)
[2023-06-28] MEDS ORDERED: LIDOCAINE JELLY 2% 5 ML SYRINGE TOP ONE (11:10)
--- NOTE | 2023-06-28 20:24 | P.OP ---
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 p induction intravesical gemcitabinedocetaxel chemotherapy with resolution of the papillary urothelial neoplasms Reimplanted left ureter with left ureteral stent in place Atrophic left kidney Post procedure diagnosis: Same Principal procedures: Insertion of urethral Harley catheter Instillation of sequential intravesical gemcitabine 1 g followed by docetaxel 37.5 mg chemotherapy Indication for procedure: 82-year-old gentleman with prior colon resection with left ureteral reimplantation required complicated by reimplanted ureteral orifice stenosis causing renal atrophy and hydronephrosis s/p evaluation and complex left ureter al stent placement with papillary urothelial lesion seen in the distal reimplanted left ureter suspicious for urothelial carcinoma p upper tract gemcitabine chemotherapy administration, with subsequent TA high-grade urothelial carcinoma of the bladder p induction gemcitabine intravesical but 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 Procedure note: The patient was consented and placed supine on the procedure table. His genitalia was prepped with Betadine and draped in standard fashion. An 18 Indonesian catheter was placed via his urethra into his bladder with ease, and clear yellow urine urine did drain. Prior urine culture sent from the office were unremarkable for definitive infection. The urinalysis today was mildly suspicious with only leukocyte Estrace seen. As a result, I provided the patient with a dose of Bactrim oral antimicrobial prophylactic therapy, and we sent his urine for reflexive culture. I then retrograde instilled 1 g of gemcitabine and 25 cc normal saline into his bladder after he had been given a dose of Ditropan 10 mg and Valium for bladder spasms. He tolerated the gemcitabine for the full 90 minutes of therapy desired, and it was evacuated into an attached leg bag. We then instilled the 37.5 mg of docetaxel into his bladder and allowed him to keep that in situ intravesical for a total of 2 hours, before that was evacuated into an attached leg bag. The urethral Harley catheter and leg bag were eventually removed and discarded into chemotherapeutic waste. He tolerated the procedure well and without any signs of an allergic reaction or complication. He was then discharged from the day surgery area in good condition. Complications: None Discharge disposition: Follow-up in 1 month for continuation of monthly maintenance sequential gemcitabinedocetaxel intravesical chemotherapy. Cystoscopy as scheduled as an outpatient, 3 months from his last operative cystoscopic evaluation in April.
== END 2023-06-28 15:33 | disposition home or self-care (01) ==
LOC: DS 09:14
PROVIDERS: ATTEND Urology
PROC: 3E0K705 Introduction of Other Antineoplastic into Genitourinary Tract, Via Natural or Artificial Opening (ICD-10-PCS; principal; 2023-06-28)
DX: C67.9 Malignant neoplasm of bladder, unspecified (principal); C66.2 Malignant neoplasm of left ureter
CPT/HCPCS: 87088; 81001; 87086; 96365 ×2; 96366 ×2; 51720; J9171; J9201

== ENCOUNTER 2023-07-26 08:48 | Day surgery (SDC) | payer OTHER ==
[2023-07-26 09:27] LABS: Specific Gravity 1.014 (1.005-1.030); Urine Bacteria <20 /HPF (<20); Urine Bilirubin NEGATIVE (Negative); Urine Blood 2+ (Negative); Urine Clarity Extremely Turbid (Clear); Urine Color Light-Yellow (Yellow); Urine Glucose NEGATIVE (Negative); Urine Protein 1+ (Negative); Urine RBC >50 /HPF (None Seen); Urine Urobilinogen Normal (Normal); Urine WBC Clump Rare /HPF (None Seen); Urine pH 5.5 (5.0-7.0)
[2023-07-26] MEDS ORDERED: LIDOCAINE JELLY 2% 5 ML SYRINGE TOP ONE (09:42)
[2023-07-26] MEDS ORDERED: oxyBUTYnin chloride 5 MG TAB ONE (09:42)
[2023-07-26] MEDS ORDERED: DOCEtaxeL 37.5 MG in NA CHLORIDE 0.9% 48.125 ML IS ONE (10:00)
[2023-07-26] MEDS ORDERED: GEMCITABINE HCL 23.6 ML IS ONE (10:00)
[2023-07-26] MEDS ORDERED: DIAZEPAM 5 MG TABLET ONE (10:15)
[2023-07-26 10:34] VITALS: BMI 28.5
[2023-07-26 10:39] VITALS: BP 116/61; TEMP 98.1; O2SAT 98
--- NOTE | 2023-07-26 14:54 | P.OP ---
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 p induction intravesical gemcitabinedocetaxel chemotherapy with resolution of the papillary urothelial neoplasms Reimplanted left ureter with left ureteral stent in place Atrophic left kidney Post procedure diagnosis: Same Principal procedures: Insertion of urethral Harley catheter Instillation of sequential intravesical gemcitabine 1 g followed by docetaxel 37.5 mg sequential chemotherapy Indication for procedure: 82-year-old gentleman with prior colon resection with left ureteral reimplantation required complicated by reimplanted ureteral orifice stenosis causing renal atrophy and hydronephrosis s/p evaluation and complex left ureteral stent placement with papillary urothelial lesion seen in the distal reimplanted left ureter suspicious for urothelial carcinoma p upper tract gemcitabine chemotherapy administration, with subsequent TA high-grade urothelial carcinoma of the bladder p induction gemcitabine intravesical but 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 Procedure note: The patient was consented and placed supine on the procedure table. His genitalia was prepped with Betadine and draped in standard fashion. An 18 Indonesian catheter was placed via his urethra into his bladder with ease, and clear yellow urine urine did drain. Prior urine culture sent from the office were unremarkable for definitive infection. I then retrograde instilled 1 g of gemcitabine and 25 cc normal saline into his bladder after he had been given a dose of Ditropan 10 mg and Valium for bladder spasms. He tolerated the gemcitabine for the full 90 minutes of therapy desired, and it was evacuated into an attached leg bag. We then instilled the 37.5 mg of docetaxel into his bladder and allowed him to keep that in situ intravesical for a total of 2 hours, before that was evacuated into an attached leg bag. The urethral Harley catheter and leg bag were eventually removed and discarded into chemotherapeutic waste. He tolerated the procedure well and without any signs of an allergic reaction or complication. He was then discharged from the day surgery area in good condition. Complications: None Discharge disposition: Follow-up in 1 month for continuation of monthly maintenance sequential gemcitabinedocetaxel intravesical chemotherapy. Cystoscopy as scheduled as an outpatient at the end of this month, around 08/10/23.
== END 2023-07-26 16:30 | disposition home or self-care (01) ==
LOC: DS 08:48
PROVIDERS: ATTEND Urology
PROC: 3E0K705 Introduction of Other Antineoplastic into Genitourinary Tract, Via Natural or Artificial Opening (ICD-10-PCS; principal; 2023-07-26)
DX: C67.9 Malignant neoplasm of bladder, unspecified (principal)
CPT/HCPCS: 87088; 81001; 87086; 96365 ×2; 96366 ×2; 51720; J9171; J9201

== ENCOUNTER 2023-09-20 08:00 | Day surgery (SDC) | payer OTHER ==
[2023-09-20] MEDS ORDERED: OXYBUTYNIN ER 5 MG TAB PO ONE (08:15)
[2023-09-20 08:52] VITALS: BP 123/59; TEMP 98.4; O2SAT 99; BMI 28.7
[2023-09-20 08:53] LABS: Specific Gravity 1.012 (1.005-1.030); Urine Bacteria None Seen /HPF (<20); Urine Bilirubin NEGATIVE (Negative); Urine Blood 1+ (Negative); Urine Clarity Extremely Turbid (Clear); Urine Color Light-Yellow (Yellow); Urine Glucose NEGATIVE (Negative); Urine Protein TRACE (Negative); Urine Urobilinogen Normal (Normal)
[2023-09-20] MEDS ORDERED: GEMCITABINE HCL 23.6 ML IS ONE (09:00)
[2023-09-20] MEDS ORDERED: DOCEtaxeL 37.5 MG in NA CHLORIDE 0.9% 48.125 ML IS ONE (09:00)
[2023-09-20] MEDS ORDERED: LIDOCAINE JELLY 2% 5 ML SYRINGE TOP ONE (09:19)
[2023-09-20] MEDS ORDERED: DIAZEPAM 5 MG TABLET ONE (09:20)
--- NOTE | 2023-09-20 14:49 | P.OP ---
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 p induction intravesical gemcitabinedocetaxel chemotherapy initially with resolution of the papillary urothelial neoplasms Recurrent Ta HG urothelial Ca of the bladder (solitary tumor <1cm) Reimplanted left ureter with Atrophic left kidney Post procedure diagnosis: Same Principal procedures: Insertion of urethral Harley catheter Instillation of sequential intravesical gemcitabine 1 g followed by docetaxel 37.5 mg sequential chemotherapy Indication for procedure: 82-year-old gentleman with prior colon resection with left ureteral reimplantation required complicated by reimplanted ureteral orifice stenosis causing renal atrophy and hydronephrosis s/p evaluation and complex left ureteral stent placement with papillary urothelial lesion seen in the distal reimplanted left ureter suspicious for urothelial carcinoma p upper tract gemcitabine chemotherapy administration, with subsequent TA high-grade urothelial carcinoma of the bladder p induction gemcitabine intravesical but 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 Procedure note: The patient was consented and placed supine on the procedure table. His genitalia was prepped with Betadine and draped in standard fashion. An 18 Ecuadorean catheter was placed via his urethra into his bladder with ease, and clear yellow urine urine did drain. Prior urine culture sent from the office were unremarkable for definitive infection. I then retrograde instilled 1 g of gemcitabine and 25 cc normal saline into his bladder after he had been given a dose of Ditropan 10 mg and Valium for bladder spasms. He tolerated the gemcitabine for the full 90 minutes of therapy desired, and it was evacuated into an attached leg bag. We then instilled the 37.5 mg of docetaxel into his bladder and allowed him to keep that in situ intravesical for a total of 2 hours, before that was evacuated into an attached leg bag. The urethral Harley catheter and leg bag were eventually removed and discarded into chemotherapeutic waste. He tolerated the procedure well and without any signs of an allergic reaction or complication. He was then discharged from the day surgery area in good condition. Complications: None Discharge disposition: Recommend second induction course of BCG, given the recurrent but high-grade noninvasive disease seen despite intravesical gemcitabinedocetaxel sequential chemotherapy. Given the BCG shortage, we may have to instead consider repeat induction course of gemcitabinedocetaxel, where today's dose may be considered the first of 6, if we cannot get adequate BCG supplies.
== END 2023-09-20 15:40 | disposition home or self-care (01) ==
LOC: DS 08:00
PROVIDERS: ATTEND Urology
PROC: 3E0K705 Introduction of Other Antineoplastic into Genitourinary Tract, Via Natural or Artificial Opening (ICD-10-PCS; principal; 2023-09-20)
DX: C67.9 Malignant neoplasm of bladder, unspecified (principal)
CPT/HCPCS: 87088; 81001; 87086; 96365; 96366; 51720; J9171; J9201

== ENCOUNTER 2024-10-28 10:18 | Inpatient (IN) | payer BC ==
[2024-10-28 11:08] LABS: Absolute Basophils 0.1 K/uL (0-0.5); Absolute Eosinophils 0.2 K/uL (0-0.5); Absolute Monocytes 0.9 K/uL (0.1-1.3); Absolute Neutrophil 5.7 K/uL (1.8-8.0); Basophils % 0.7 % (0-1.3); Eosinophils % 2.2 % (0-4.4); Hematocrit 41.9 % (39.6-49.0); Hemoglobin 13.8 g/dL (13.6-17.9); Lymphocytes % 12.8 % (15.3-44.8); MCHC 32.9 g/dL (32.0-36.0); MCV 88.1 fL (80-100); MPV 8.4 fL (7.6-11.3); Monocytes % 11.3 % (3.3-12.3); Platelets 152 thou/uL (152-406); RBC Red Blood Cell Count 4.75 M/uL (4.33-5.43); Red Cell Distribution Width 17.1 % (12.1-15.2)
[2024-10-28 11:14] LABS: PT Prothrombin Time 12.9 SECONDS (9.4-12.5); Protime INR 1.23
[2024-10-28 11:26] LABS: Anion Gap 7.2 mEq/L (5.0-15.0); Potassium 4.2 mEq/L (3.5-5.1); Troponin High Sensitivity 24.2 pg/mL (<58.9)
[2024-10-28] MEDS ORDERED: FUROSEMIDE 40 MG/4 ML VIAL ONE (11:32)
--- NOTE | 2024-10-28 11:33 | EDPHYS ---
Physician Documentation [facility] Name: Carlitos Peralta Age: 84 yrs Sex: Male : 1940 Arrival Date: 10/28/2024 Time: 10:18 Bed 19 Private MD: Danny Schultz V ED Physician Tim Potter HPI: 10/28 10:53 This 84 yrs old Male presents to ER via Wheelchair with complaints of ec2 Breathing Difficulty. 10:53 Patient arrives today for evaluation of progressive shortness of breath. History of ec2 hypertension, atrial fibrillation, on Eliquis, previously was on Lasix however no longer takes this. Reports has been having progressive shortness of breath, dyspnea on exertion as well as lower extremity edema. No chest pain.. Historical: - Allergies: 10:49 Dilaudid; hb - PMHx: 10:49 a fib; Arthritis; Bladder cancer; CA; Hypertensive disorder; hb - PSHx: 10:49 colon cancer sx; hernia repair; mult eye sx; hb - Immunization history:: Adult Immunizations up to date. - Infectious Disease History:: Denies. - Social history:: Smoking status: Patient denies any tobacco usage or history of. ROS: 10:53 Constitutional: as per hpi ec2 Exam: 10:53 Constitutional: GEN: NAD Head: atraumatic Eyes: EOMI Ears: External ears are ec2 normal. CV: regular rate, 2+ lower extremity edema LUNGS: Tachypnea with crackles noted throughout multiple lung milton. ABD: non-distended SKIN: no evidence of rashes MSK: no evidence of trauma Vital Signs: 10:49 BP 200 / 71; Pulse 72; Resp 28; Temp 98.9(TE); Pulse Ox 100% on R/A; Weight 92.99 kg; hb Height 5 ft. 11 in. ; Pain 2/10; 11:25 BP 173 / 65; Pulse 63; Resp 19; Pulse Ox 100% on BiPAP; FiO2 30 %; mb9 11:38 BP 184 / 77; ec2 10:49 Body Mass Index 28.59 (92.99 kg, 180.34 cm) hb 10:49 Pain Scale: Adult hb MDM: 10:32 Medical Screening Exam initiated ec2 10:54 Data reviewed: vital signs, nurses notes. ED course: Patient arrives today for ec2 evaluation of shortness of breath. Examination yields cardiopulmonary findings as above. Will obtain a cardiac workup, place the patient on BiPAP given the patient's work of breathing. Suspect volume overload given the lower extremity edema as well as crackles noted on examination.. 11:05 ED course: EKG independently reviewed and interpreted by me, shows atrial fibrillation, ec2 rate of 67, no acute ST segment elevations, intervals are nonactionable, motion artifact noted.. 11:14 ED course: On reassessment after BiPAP administration, patient with marked improvement ec2 in his respiratory status.. 11:32 ED course: Metabolic profile shows renal dysfunction with a creatinine of 1.5. Elevated ec2 BNP at 3800. Troponin within normal ranges. CBC reassuring. Chest x-ray independently reviewed and interpreted by me, shows cardiomegaly as well as vascular congestion, possible left-sided pleural effusion. Will admit for diuresis. Discussed with Dr. Schultz who will admit.. 10/28 10:53 Order name: Basic Metabolic Panel; Complete Time: 11:31 ec2 10/28 10:53 Order name: CBC with Diff; Complete Time: 11:14 ec2 10/28 10:53 Order name: NT PRO-BNP; Complete Time: 11:31 ec2 10/28 10:53 Order name: PT-INR; Complete Time: 11:31 ec2 10/28 10:53 Order name: Troponin HS; Complete Time: 11:31 ec2 10/28 11:46 Order name: Troponin High Sensitivity [facility] 10/28 10:53 Order name: XRAY Chest (1 view); Complete Time: 12:05 ec2 10/28 10:53 Order name: EKG; Complete Time: 10:53 ec2 10/28 11:46 Order name: CONS Physician Consult [facility] 10/28 10:53 Order name: Cardiac monitoring; Complete Time: 10:59 ec2 10/28 10:53 Order name: EKG - Nurse/Tech; Complete Time: 10:59 ec2 10/28 10:53 Order name: IV Saline Lock; Complete Time: 10:59 ec2 10/28 10:53 Order name: Labs collected and sent; Complete Time: 10:59 ec2 10/28 10:53 Order name: O2 Per Protocol; Complete Time: 10:59 ec2 10/28 10:53 Order name: O2 Sat Monitoring; Complete Time: 10:59 ec2 Administered Medications: 11:40 Drug: Furosemide IVP 40 mg IVP once; give over 2 minutes Route: IVP; Site: right mb9 forearm; 13:04 Follow up: Response: No adverse reaction mb9 Disposition: 11:14 Critical Care:. ec2 Disposition Summary: 10/28/24 11:33 Hospitalization Ordered Notes: Hospitalization Status: Inpatient Admission ec2 Provider: Danny Schultz ec2 Condition: Fair ec2 Problem: an acute exacerbation ec2 Symptoms: have improved ec2 Bed/Room Type: Standard ec2 Location: Intensive Care Unit(10/28/24 15:39) hb Room Assignment: 1-(10/28/24 15:39) hb Diagnosis - Volume Overload ec2 Forms: - Medication Reconciliation Form ec2 - SBAR form ec2 - Leadership Thank You Letter ec2 Critical care time excluding procedures: 11:14 Critical care time: Bedside Care: 30 minutes, Consultation: 5 minutes. Total time: 35 ec2 minutes Signatures: Dispatcher [employer] EDSamantha Berry RN RN hb Tia Bernal RN RN mb9 Tim Potter MD MD ec2 Corrections: (The following items were deleted from the chart) 10:53 10:53 BiPap ([employer] Only)+FABIOLABRZ ordered. EDNH EDMS 12:28 11:33 Intensive Care Unit ec2 hb 12:28 11:33 ec2 hb 15:39 12:28 [facility] ER HOLD hb hb 15:39 12:28 ERHOLD- hb hb
--- NOTE | 2024-10-28 11:33 | ER ---
Nurse's Notes [facility] Name: Carlitos Peralta Age: 84 yrs Sex: Male : 1940 Arrival Date: 10/28/2024 Time: 10:18 Bed 19 Private MD: Danny Schultz V Diagnosis: Volume Overload Presentation: 10/28 10:49 Chief complaint: Intermittent SOB x 1 week, worse today. Coronavirus screen: Client hb presents with at least one sign or symptom that may indicate coronavirus-19. Provider contacted for isolation considerations. Ebola Screen: No symptoms or risks identified at this time. Initial Sepsis Screen: Does the patient meet any 2 criteria? No. Patient's initial sepsis screen is negative. Does the patient have a suspected source of infection? No. Patient's initial sepsis screen is negative. Risk Assessment: Do you want to hurt yourself or someone else? Patient reports no desire to harm self or others. Onset of symptoms was October 21, 2024. 10:49 Method Of Arrival: Wheelchair hb 10:49 Acuity: LUISITO 2 hb Historical: - Allergies: 10:49 Dilaudid; hb - PMHx: 10:49 a fib; Arthritis; Bladder cancer; CA; Hypertensive disorder; hb - PSHx: 10:49 colon cancer sx; hernia repair; mult eye sx; hb - Immunization history:: Adult Immunizations up to date. - Infectious Disease History:: Denies. - Social history:: Smoking status: Patient denies any tobacco usage or history of. Screenin:01 [facility] ED Fall Risk Assessment (Adult) History of falling in the last 3 months, mb9 including since admission No falls in past 3 months (0 pts) Confusion or Disorientation No (0 pts) Intoxicated or Sedated No (0 pts) Impaired Gait No (0 pts) Mobility Assist Device Used No (0 pt) Altered Elimination No (0 pt) Score/Fall Risk Level 0 - 2 = Low Risk Oriented to surroundings, Maintained a safe environment, Educated pt \T\ family on fall prevention, incl call for assistance when getting out of bed. Abuse screen: Denies threats or abuse. Nutritional screening: No deficits noted. Tuberculosis screening: No symptoms or risk factors identified. Assessment: 10:59 Reassessment: RT at bedside placing BiPAP. mb9 11:00 General: Appears uncomfortable, Behavior is cooperative. Pain: Denies pain. Neuro: mb9 Scott Agitation-Sedation Scale (RASS): 0 - Alert and Calm Level of Consciousness is awake, alert, obeys commands, Oriented to person, place, time, situation, Appropriate for age. Cardiovascular: Heart tones S1 S2 present Patient's skin is warm and dry. Edema is 2+ to left midcalf, left ankle, left foot, left toes, right midcalf, right ankle, right foot and right toes Rhythm is regular. Respiratory: Reports shortness of breath Airway is patent Respiratory effort is labored, Respiratory pattern is tachypnea Breath sounds with crackles bilaterally. GI: Abdomen is round non-distended. : No signs and/or symptoms were reported regarding the genitourinary system. EENT: No signs and/or symptoms were reported regarding the EENT system. Derm: Skin is pink, warm \T\ dry. Musculoskeletal: Range of motion: intact in all extremities. 11:25 Respiratory: Patient placed on BiPAP: Inspiratory Pressure: 12 Expiratory (EPAP) mb9 Pressure: 6 FiO2%: 30 Respiratory Rate: 14. 11:40 Reassessment: Patient and/or family updated on plan of care and expected duration. Pain mb9 level reassessed. Patient is alert, oriented x 3, equal unlabored respirations, skin warm/dry/pink. Patient states feeling better. Patient states symptoms have improved. 12:30 Reassessment: see [facility] for further charting. mb9 Vital Signs: 10:49 BP 200 / 71; Pulse 72; Resp 28; Temp 98.9(TE); Pulse Ox 100% on R/A; Weight 92.99 kg; hb Height 5 ft. 11 in. ; Pain 2/10; 11:25 BP 173 / 65; Pulse 63; Resp 19; Pulse Ox 100% on BiPAP; FiO2 30 %; mb9 11:38 BP 184 / 77; ec2 10:49 Body Mass Index 28.59 (92.99 kg, 180.34 cm) hb 10:49 Pain Scale: Adult hb ED Course: 10:19 Patient arrived in ED. al6 10:20 Tim Potter MD is Attending Physician. ec2 10:41 Tia Bernal RN is Primary Nurse. mb9 10:52 Triage completed. hb 10:52 Danny Schultz MD is Private Physician. hb 10:52 Arm band placed on. hb 10:59 Initial lab(s) drawn, by me, sent to lab. EKG done, by ED staff, reviewed by Tim Potter MD. Inserted saline lock: 20 gauge in right forearm, using aseptic technique. Blood collected. Flushed with 10 mL NS. 11:01 Placed in gown. Bed in low position. Call light in reach. Side rails up X 1. Provided mb9 Education on: press call light if needing anything. Client placed on continuous cardiac and pulse oximetry monitoring. NIBP monitoring applied. quality assurance monitor chassis on. 11:27 No provider procedures requiring assistance completed. mb9 11:33 Danny Schultz MD is Hospitalizing Provider. ec2 11:41 Patient admitted, IV remains in place. mb9 11:50 XRAY Chest (1 view) In Process Unspecified. EDMS Administered Medications: 11:40 Drug: Furosemide IVP 40 mg IVP once; give over 2 minutes Route: IVP; Site: right mb9 forearm; 13:04 Follow up: Response: No adverse reaction mb9 Medication: 11:01 VIS not applicable for this client. mb9 Outcome: 11:33 Decision to Hospitalize by Provider. ec2 13:04 Admitted to ICU mb9 13:04 Condition: stable 13:04 Instructed on the need for admit, 16:20 Patient left the ED. mb9 Signatures: Dispatcher [employer] EDMS Samantha Mattson RN RN Tia Bernal RN RN mb9 Corral, Edwin, MD MD ec2 [facility] Corrections: (The following items were deleted from the chart) 11:40 11:25 Pulse 63bpm; Resp 19bpm; Pulse Ox 100% BiPAP FiO2 30%; mb9 mb9
--- NOTE | 2024-10-28 11:59 | RAD REPORT ---
Procedure: Chest Single View HISTORY: Shortness of breath COMPARISON: 2022 FINDINGS: Mild to moderate bilateral pulmonary opacities. Small pleural effusions. Heart is moderately enlarged. IMPRESSION: These findings probably represent CHF
--- NOTE | 2024-10-28 12:26 | P.HP ---
Patient History Date of Service: 10/28/24 Reason for admission: SHORT OF BREATH History of Present Illness: TREVA IS A PATIENT WITH A FIB, CHRONIC VENOUS CONGESTION AND PARKINSON'S. HIS DIET IS NOT THE BEST. AND HE WANT TO LEAVE AT HOME AND REFUSE ASSITED LIVING. THEY EAT PIZZA EVERY TUESDAY AND EAT LEFT OVERS. HE HAS BEEN SHORT OF BREATH FOR 3 DAYS. CXR SHOWS PULMONARY EDEMA. Allergies delavirdine Allergy (Verified 06/28/23 10:47) Hallucinations hydromorphone [From Dilaudid] Allergy (Verified 09/20/23 08:47) Hallucinations meropenem Allergy (Verified 06/28/23 10:47) Hives/Rash tramadol Allergy (Verified 06/28/23 10:47) Hallucinations Home Medications: Cholecalciferol (Vitamin D3) [Vitamin D 5,000 IU Cap*] 5,000 unit PO DAILY #30 cap 05/25/22 Apixaban [Eliquis] 5 mg PO BID 07/27/22 Furosemide [Lasix] 20 mg PO DAILY 07/27/22 Gabapentin [Neurontin*] 100 mg PO TID #90 cap 11/25/22 Lutein 1 tab PO DAILY 12/26/22 Metoprolol Succinate [Toprol Xl*] 75 mg PO DAILY 12/31/22 Potassium Oral Tab [Klor-Con 10 mEq Tab*] 1 tab PO DAILY 12/31/22 Trospium Chloride [Sanctura] 20 mg PO BID 12/31/22 Hydralazine HCl 50 mg PO TID 04/25/23 Tamsulosin HCl 0.4 mg PO DAILY 04/25/23 - Past Medical/Surgical History Diabetic: No -: afib -: colon CA -: bladder CA-current -: prostate CA -: HTN -: arthritis -: POLYMYALGIA RHEUMATICA- STEROIDS -: Colon sx -: Hernia repair -: 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 - Family History Father -: Other (see notes) Notes: brain tumor Mother -: Other (see notes) Notes: arthritis and multiple issues cannot remember - Social History Alcohol use: Yes CD- Drugs: No Caffeine use: Yes Review of Systems 10-point ROS is otherwise unremarkable General: Weakness Respiratory: Shortness of Breath Physical Examination - Vital Signs Pulse: 65 Pulse Ox (%): 100 - Physical Exam General: Oriented x3, Moderate distress, Other (ANGRY USUAL.) HEENT: Atraumatic, PERRLA, Mucous membr. moist/pink, EOMI, Sclerae nonicteric Neck: Supple, 2+ carotid pulse no bruit, No LAD, Without JVD or thyroid abnormality Respiratory: Diminished Cardiovascular: Regular rate/rhythm, Normal S1 S2 Gastrointestinal: Normal bowel sounds, No tenderness Musculoskeletal: No tenderness Integumentary: No rashes Neurological: Normal gait, Normal speech, Normal strength at 5/5 x4 extr, Normal tone, Normal affect Lymphatics: No axilla or inguinal lymphadenopathy - Studies Laboratory Data (last 24 hrs) 10/28/24 10/28/24 10/28/24 10:59 10:59 10:59 WBC 7.90 Hgb 13.8 Hct 41.9 Plt Count 152 PT 12.9 H INR 1.23 Sodium 141 Potassium 4.2 BUN 21 H Creatinine 1.49 H Glucose 94 Assessment and Plan - Problems (Diagnosis) (1) Acute diastolic heart failure Current Visit: Yes Status: Acute Plan: LASIX IV BID KCL PO BID LAB DAILY. ECHO WITH DOPPLER. STAT. (2) History of atrial fibrillation Current Visit: No Status: Chronic Plan: RATE CONTROLLED FOR NOW. LOOKS NSR. (3) Parkinsonian features Current Visit: No Status: Chronic Plan: WALKS WITH A SHUFFLE FOR YEARS HAS BEEN TO DR. STALEY. - Advance Directives Does patient have a Living Will: No Does patient have a Durable POA for Healthcare: No
[2024-10-28 12:59] VITALS: BMI 28.5
[2024-10-28] MEDS: FUROSEMIDE 40 MG/4 ML VIAL IV SCH (16:36)
[2024-10-28 17:30] VITALS: O2SAT 99
[2024-10-28] MEDS: VALSARTAN 40 MG TAB PO SCH (20:30)
[2024-10-29 05:40] LABS: Absolute Basophils 0.1 K/uL (0-0.5); Absolute Eosinophils 0.3 K/uL (0-0.5); Absolute Lymphocytes (CBC) 1.1 K/uL (0.7-4.9); Absolute Neutrophil 5.8 K/uL (1.8-8.0); Basophils % 0.8 % (0-1.3); Eosinophils % 3.4 % (0-4.4); Hematocrit 44.3 % (39.6-49.0); Hemoglobin 14.6 g/dL (13.6-17.9); Lymphocytes % 13.2 % (15.3-44.8); MCH 29.2 pg (27.0-35.0); MCV 88.7 fL (80-100); MPV 8.4 fL (7.6-11.3); Monocytes % 12.6 % (3.3-12.3); Nucleated Red Blood Cells % 0.1 % (0-0); Platelets 151 thou/uL (152-406); RBC Red Blood Cell Count 4.99 M/uL (4.33-5.43); Red Cell Distribution Width 16.7 % (12.1-15.2)
[2024-10-29 05:54] LABS: Anion Gap 5.6 mEq/L (5.0-15.0); Magnesium 2.4 mg/dL (1.6-2.4); Potassium 3.6 mEq/L (3.5-5.1)
[2024-10-29 08:02] VITALS: TEMP 97.6
[2024-10-29] MEDS: POTASSIUM CL SA 10 MEQ TAB PO SCH (08:48)
[2024-10-29 10:30] VITALS: BP 135/53
--- NOTE | 2024-10-29 11:39 | P.CNS ---
Date of Consult: 10/29/24 Chief Complaint: SHORT OF BREATH History of Present Illness: Patient with PMH of heart failure, atrial fibrillation presented with worsening SOB, HUSAIN and lower extremities edema for the last few days, he follows up with cardiology in [facility], denies any other cardiac symptoms. Allergies delavirdine Allergy (Verified 06/28/23 10:47) Hallucinations hydromorphone [From Dilaudid] Allergy (Verified 09/20/23 08:47) Hallucinations meropenem Allergy (Verified 06/28/23 10:47) Hives/Rash tramadol Allergy (Verified 06/28/23 10:47) Hallucinations Home medications list reviewed: Yes Home Medications: Apixaban [Eliquis] 5 mg PO BID 07/27/22 Metoprolol Succinate [Toprol Xl*] 75 mg PO DAILY 12/31/22 Tamsulosin HCl 0.4 mg PO DAILY 04/25/23 Gabapentin [Neurontin*] 300 mg PO TID 10/28/24 Mirabegron [Myrbetriq] 50 mg PO DAILY 10/28/24 Pantoprazole [Protonix Tab*] 20 mg PO DAILY 10/28/24 Solifenacin Succinate 10 mg PO DAILY 10/28/24 - Past Medical/Surgical History Diabetic: No -: afib -: colon CA -: bladder CA-current -: prostate CA -: HTN -: arthritis -: POLYMYALGIA RHEUMATICA- STEROIDS -: Colon sx -: Hernia repair -: 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 - Family History Father Medical History: Other (see notes) Notes: brain tumor Mother Medical History: Other (see notes) Notes: arthritis and multiple issues cannot remember - Social History Smoking Status: Former smoker Alcohol use: Yes CD- Drugs: No Caffeine use: Yes Review of Systems 10-point ROS is otherwise unremarkable Physical Examination Temp Pulse Resp BP Pulse Ox 97.6 F 72 18 135/53 L 98 10/29/24 07:00 10/29/24 10:00 10/29/24 10:00 10/29/24 10:00 10/29/24 10:00 General: Alert, In no apparent distress HEENT: Atraumatic, PERRLA, Mucous membr. moist/pink, EOMI, Sclerae nonicteric Neck: Supple, 2+ carotid pulse no bruit, No LAD, Without JVD or thyroid abnormality Respiratory: Clear to auscultation bilaterally, Normal air movement Cardiovascular: Regular rate/rhythm, Normal S1 S2 Gastrointestinal: Normal bowel sounds, No tenderness Musculoskeletal: No tenderness Integumentary: No rashes Neurological: Normal gait, Normal speech, Normal tone, Normal affect Lymphatics: No axilla or inguinal lymphadenopathy - Problems (1) Acute diastolic heart failure Current Visit: Yes Status: Acute Plan: agree with lasix 40 mg IV BID continue patient home dose of Toprol continue Vlasartan consider adding aldactone 25 mg daily monitor input and output and electrolytes. (2) Atrial fibrillation Current Visit: No Status: Chronic Plan: rate controlled continue Toprol XL continue Eliquis Qualifiers: Atrial fibrillation type: paroxysmal Qualified Code(s): I48.0 - Paroxysmal atrial fibrillation
--- NOTE | 2024-10-29 13:16 | ECHO ---
HEIGHT: 5 ft 11 in WEIGHT: 205 lb 0.126 oz DATE OF STUDY: 10/29/[address]: Danny Schultz MD 2-DIMENSIONAL: YES M.MODE: YES DOPPLER: YES COLOR FLOW: YES TDS: PORTABLE: YES DEFINITY: BUBBLE STUDY: DIAGNOSIS: EDEMA/ DYSPNEA CARDIAC HISTORY: CATHERIZATION: SURGERY: PROSTHETIC VALVE: PACEMAKER: MEASUREMENTS (cm) DIASTOLIC (NORMALS) SYSTOLIC (NORMALS) IVSd 1.2 (0.6-1.2) LA Diam 4.6 (1.9-4.0) LVEF 55-60% LVIDd 4.4 (3.5-5.7) LVIDs 3.4 (2.0-3.5) %FS LVPWd 1.3 (0.6-1.2) Ao Diam 4.4 (2.0-3.7) 2 DIMENSIONAL ASSESSMENT: RIGHT ATRIUM: NORMAL LEFT ATRIUM: NORMAL RIGHT VENTRICLE: NORMAL LEFT VENTRICLE: NORMAL TRICUSPID VALVE: MILD TRICUSPID REGURGITATION MITRAL VALVE: MILD MITRAL REGURGITATION PULMONIC VALVE: NORMAL AORTIC VALVE: MILD AORTIC REGURGITATION PERICARDIAL EFFUSION: NONE AORTIC ROOT: NORMAL LEFT VENTRICULAR WALL MOTION: NORMAL DOPPLER/COLOR FLOW: DIASTOLIC DYSFUNCTION COMMENTS: 1. NORMAL LEFT VENTRICULAR SYSTOLIC FUNCTION, EJECTION FRACTION 55-60%, NORMAL WALL MOTION 2. DIASTOLIC DYSFUNCTION 3. MILD ELEVATED FILILNG PRESSURE (RIGHT ATRIAL PRESSURE 10-15 mmHg) TECHNOLOGIST: CRISTOPHER PIZARRO
--- NOTE | 2024-10-29 18:03 | P.DS ---
Admission Date: 10/28/24 Discharge Date: 10/29/24 Disposition: ROUTINE DISCHARGE Discharge Condition: FAIR Reason for Admission: SHORT OF BREATH - Problems (1) Acute diastolic heart failure Status: Acute (2) History of atrial fibrillation Status: Chronic (3) Parkinsonian features Status: Chronic Brief History of Present Illness: TREVA IS A PATIENT WITH A FIB, CHRONIC VENOUS CONGESTION AND PARKINSON'S. HIS DIET IS NOT THE BEST. AND HE WANT TO LEAVE AT HOME AND REFUSE ASSITED LIVING. THEY EAT PIZZA EVERY TUESDAY AND EAT LEFT OVERS. HE HAS BEEN SHORT OF BREATH FOR 3 DAYS. CXR SHOWS PULMONARY EDEMA. Hospital Course: TREVA IS 84 YO GM WITH PARKINSON'S AND A FIB. HE IS DECONDITIONED. HE HAS USED HEAVY ALCOHOL ALL HIS LIFE. HE COMES WITH DYSPNEA FROM CHF. LASIX IVBID AND KCL HELPED. I DISCHARGED HIM HE WAS STABLE AND LOT BETTER. Vital Signs/Physical Exam: Temp Pulse Resp BP Pulse Ox 97.6 F 72 18 135/53 L 98 10/29/24 07:00 10/29/24 10:00 10/29/24 10:00 10/29/24 10:00 10/29/24 10:00 Laboratory Data at Discharge: WBC 8.20 thou/uL (4.3-10.9) 10/29/24 05:13 Hgb 14.6 g/dL (13.6-17.9) 10/29/24 05:13 Hct 44.3 % (39.6-49.0) 10/29/24 05:13 Plt Count 151 thou/uL (152-406) L 10/29/24 05:13 PT 12.9 SECONDS (9.4-12.5) H 10/28/24 10:59 INR 1.23 10/28/24 10:59 Sodium 142 mEq/L (136-145) 10/29/24 05:13 Potassium 3.6 mEq/L (3.5-5.1) D 10/29/24 05:13 BUN 23 mg/dL (7-18) H 10/29/24 05:13 Creatinine 1.52 mg/dL (0.70-1.30) H 10/29/24 05:13 Glucose 99 mg/dL (74-106) 10/29/24 05:13 Magnesium 2.4 mg/dL (1.6-2.4) 10/29/24 05:13 Home Medications: Apixaban [Eliquis] 5 mg PO BID 07/27/22 Metoprolol Succinate [Toprol Xl*] 75 mg PO DAILY 12/31/22 Tamsulosin HCl 0.4 mg PO DAILY 04/25/23 Gabapentin [Neurontin*] 300 mg PO TID 10/28/24 Mirabegron [Myrbetriq] 50 mg PO DAILY 10/28/24 Pantoprazole [Protonix Tab*] 20 mg PO DAILY 10/28/24 Solifenacin Succinate 10 mg PO DAILY 10/28/24 Furosemide 40 mg PO DAILY #90 tab 10/29/24 Potassium Oral Tab [Klor-Con 10 mEq Tab*] 20 meq PO DAILY #90 tab 10/29/24 Valsartan [Diovan*] 40 mg PO BID #60 tab 10/29/24 New Medications: Valsartan [Diovan*] 40 mg PO BID #60 tab Furosemide 40 mg PO DAILY #90 tab Potassium Oral Tab [Klor-Con 10 mEq Tab*] 20 meq PO DAILY #90 tab Physician Discharge Instructions: PROBLEM: Volume overload GOAL: Clear understanding of disease process INSTRUCTIONS:take medications as prescribed, follow low sodium diet. Diet: Low Sodium diet Activity: As tolerated. DME DME: Date Ordered: Name of Company: [employer] Services Needed: Name of Company: Date or Referral: IMMUNIZATION Influenza Vaccine Indicated: No Influenza Vaccine Given: Date Given: Pneumonia Vaccine Indicated: No Pneumonia Vaccine Given: Date Given: Followup: Danny Schultz MD [Primary Care Provider] -
--- NOTE | 2024-11-05 12:37 | EKG ---
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
== END 2024-10-29 12:52 | disposition home or self-care (01) | DRG 291 ==
LOC: ER 10:18 → ERHOLD 11:41 → 3RD-ICU 15:59
PROVIDERS: ADMIT Internal Medicine; ATTEND Internal Medicine
PROC: 5A09457 Assistance with Respiratory Ventilation, 24-96 Consecutive Hours, Continuous Positive Airway Pressure (ICD-10-PCS; principal; 2024-10-28)
PROC: 02HV33Z Insertion of Infusion Device into Superior Vena Cava, Percutaneous Approach (ICD-10-PCS; 2024-10-28)
DX: I11.0 Hypertensive heart disease with heart failure (principal); I50.31 Acute diastolic (congestive) heart failure; I48.0 Paroxysmal atrial fibrillation; M19.90 Unspecified osteoarthritis, unspecified site; G20.A1 Parkinson's disease without dyskinesia, without mention of fluctuations; Z94.7 Corneal transplant status; Z88.5 Allergy status to narcotic agent; Z88.8 Allergy status to other drugs, medicaments and biological substances; Z79.01 Long term (current) use of anticoagulants; Z85.51 Personal history of malignant neoplasm of bladder; Z85.038 Personal history of other malignant neoplasm of large intestine; Z79.899 Other long term (current) drug therapy; Z87.891 Personal history of nicotine dependence
CPT/HCPCS: 36415; 71045; 80048; 83735; 83880; 84484; 85025; 85379; 85610; 93005; 93306; 94660; 96374; 97161; 99285; J1940